=== PATIENT | male | born 1965 | race Caucasian/White ===

== ENCOUNTER → 2019-11-08 13:37 | Outpatient (BNVA) | payer MEDICARE, MEDICAID, SELFPAY | PROVIDERS: Family Provider Internal Medicine; PCP Internal Medicine; Visit Provider Nurse Practitioner | DX: M54.5 Low back pain (principal); M25.561 Pain in right knee; M25.562 Pain in left knee; F17.210 Nicotine dependence, cigarettes, uncomplicated; Z79.891 Long term (current) use of opiate analgesic | CPT/HCPCS: 99214 ==

== ENCOUNTER 2019-11-21 09:40 | Outpatient (CLI) | payer MEDICARE, MEDICAID, SELFPAY ==
--- NOTE | 2019-11-21 14:42 | PFTS_ITS ---
Date of Study:11/21/19 Date of Dictation: MECHANICS: Forced vital capacity (FVC) is normal. Forced expiratory volume in one second (FEV1) is normal. FEV1/FVC is normal. FLOW VOLUME LOOP: Normal. LUNG VOLUMES: Normal total lung capacity. Residual volume is diminished. DIFFUSING CAPACITY FOR CARBON MONOXIDE: Mildly reduced. INTERPRETATION: The pulmonary function tests are normal. Mildly reduced DLCO with a history of significant smoking could point to a diagnosis of emphysema. MTDD
== END 2019-11-21 09:41 | disposition home or self-care (01) ==
LOC: RT 09:45
PROVIDERS: Family Provider Internal Medicine; PCP Internal Medicine; Visit Provider Internal Medicine Critical Care Medicine
DX: J44.9 Chronic obstructive pulmonary disease, unspecified (principal); F17.210 Nicotine dependence, cigarettes, uncomplicated
CPT/HCPCS: 94060; 94726; 94729

== ENCOUNTER 2019-12-02 09:38 | Outpatient (CLI) | payer MEDICARE, MEDICAID, SELFPAY ==
--- NOTE | 2019-12-02 10:15 | USCV_ITS ---
JazmineYusuf edwards Age: 54 Gender: M : 1965 Exam Date: 12/02/2019 10:01 Ordering Phys: Melissa Wilkerson MD Technologist: Ebony Brown Exam Location: [facility] – [place] Indication: SOB BP: 171 / 64 HR: 69 Rhythm: Sinus Technical Quality: Adequate MEASUREMENTS (Male / Female) Normal Values 2D ECHO LV Diastolic Diameter PLAX 5.2 cm 4.2 - 5.9 / 3.9 - 5.3 cm LV Systolic Diameter PLAX 3.8 cm IVS Diastolic Thickness 1.3 cm 0.6 - 1.0 / 0.6 - 0.9 cm IVS Systolic Thickness 1.5 cm LVPW Diastolic Thickness 1.1 cm 0.6 - 1.0 / 0.6 - 0.9 cm LVPW Systolic Thickness 1.4 cm LVOT Diameter 2.0 cm LV Ejection Fraction 2D Teich 50.5 % LV Ejection Fraction MOD 2C 65.4 % LV Ejection Fraction 2C AL 65.6 % LA Diameter 3.8 cm LA Width 3.0 cm LA Height 6.0 cm RA Width 3.6 cm RA Height 4.2 cm Aorta at Sinotubular Diameter 3.0 cm M-MODE LV Diastolic Diameter MM 5.2 cm 4.2 - 5.9 / 3.9 - 5.3 cm LV Systolic Diameter MM 3.7 cm LV Ejection Fraction MM Teich 56.4 % IVS Diastolic Thickness MM 1.2 cm 0.6 - 1.0 / 0.6 - 0.9 cm IVS Systolic Thickness MM 1.7 cm LVPW Diastolic Thickness MM 1.1 cm 0.6 - 1.0 / 0.6 - 0.9 cm LVPW Systolic Thickness MM 1.4 cm Aortic Annulus Diameter 3.0 cm LA Ao Ratio MM 1.3 MV E Point Septal Separation 1.1 cm DOPPLER AV Peak Velocity 275.0 cm/s LVOT Peak Velocity 84.0 cm/s AV Area Cont Eq vti 1.0 cm squared AV Area Cont Eq pk 1.0 cm squared MV Area PHT 3.1 cm squared Mitral E to A Ratio 1.1 MV E' Velocity 12.0 cm/s Mitral E to MV E' Ratio 7.1 Mitral E to LV E' Lateral Ratio 6.5 Mitral E to LV E' Septal Ratio 7.8 TV Peak E Velocity 66.0 cm/s Right Atrial Pressure 3.0 mmHg PV Peak Velocity 98.0 cm/s RV Acceleration Time 0.1 s RV Ejection Time 0.3 s RV AcT/ET 0.3 FINDINGS Left Ventricle Normal left ventricular size and systolic function, EF 62 %. No regional wall motion abnormalities. Mild left ventricular hypertrophy. Right Ventricle The right ventricle is normal in size and function. Right Atrium The right atrium is normal in size. Left Atrium The left atrium is normal in size. Mitral Valve Trace mitral valve regurgitation. Aortic Valve Thickened aortic valve. Mild aortic valve regurgitation. Moderate aortic valve stenosis, mean gradient 16 mmHg, DEMOND 1 cm squared. Peak velocity of 2.75 m/s with a peak gradient of 30 and a mean gradient of 16 mmHg Tricuspid Valve Trace tricuspid valve regurgitation. Pulmonic Valve No gross abnormalities noted Pericardium Normal pericardium without effusion. Aorta Normal ascending aorta dimension. CONCLUSIONS Normal left ventricular size and systolic function, EF 62 %. No regional wall motion abnormalities. Mild left ventricular hypertrophy. Mild aortic valve regurgitation. Moderate aortic valve stenosis, mean gradient 16 mmHg, DEMOND 1 cm squared. Peak velocity of 2.75 m/s with a peak gradient of 30 and a mean gradient of 16 mmHg. Trace mitral and tricuspid valve regurgitation. Compared to the previous study from 01/15/2018, there is worsening of the aortic valve stenosis. Dr Michelle Rodriguez MD FACC (Electronically Signed) Final Date: 02 December 2019 13:27 S
== END 2019-12-02 09:39 | disposition home or self-care (01) ==
LOC: RAD 09:42
PROVIDERS: Family Provider Internal Medicine; PCP Internal Medicine; Visit Provider Internal Medicine Critical Care Medicine
DX: I08.3 Combined rheumatic disorders of mitral, aortic and tricuspid valves (principal); I50.9 Heart failure, unspecified; R06.02 Shortness of breath
CPT/HCPCS: 93306

== ENCOUNTER → 2020-02-29 13:12 | Outpatient (BNVA) | payer MEDICARE, MEDICAID, SELFPAY | PROVIDERS: Family Provider Internal Medicine; PCP Internal Medicine; Visit Provider Anesthesiology | DX: G89.29 Other chronic pain (principal); M54.41 Lumbago with sciatica, right side; M54.42 Lumbago with sciatica, left side; M19.90 Unspecified osteoarthritis, unspecified site; F17.210 Nicotine dependence, cigarettes, uncomplicated; Z79.891 Long term (current) use of opiate analgesic; Z71.6 Tobacco abuse counseling | CPT/HCPCS: 99214 ==

== ENCOUNTER → 2020-05-01 12:52 | Outpatient (BNVA) | payer MEDICARE, MEDICAID, SELFPAY | PROVIDERS: Family Provider Internal Medicine; PCP Internal Medicine; Visit Provider Anesthesiology | DX: G89.29 Other chronic pain (principal); M54.5 Low back pain; M25.561 Pain in right knee; M25.562 Pain in left knee; F17.210 Nicotine dependence, cigarettes, uncomplicated; Z79.891 Long term (current) use of opiate analgesic | CPT/HCPCS: 99214 ==

== ENCOUNTER → 2020-07-03 11:05 | Outpatient (BNVA) | payer MEDICARE, MEDICAID, SELFPAY | PROVIDERS: Family Provider Internal Medicine; PCP Internal Medicine; Visit Provider Anesthesiology | DX: G89.29 Other chronic pain (principal); M54.5 Low back pain; F17.210 Nicotine dependence, cigarettes, uncomplicated; Z79.891 Long term (current) use of opiate analgesic | CPT/HCPCS: 99213; 99214 ==

== ENCOUNTER → 2020-08-29 10:34 | Outpatient (BNVA) | payer MEDICARE, MEDICAID, SELFPAY | PROVIDERS: Family Provider Internal Medicine; PCP Internal Medicine; Visit Provider Anesthesiology | DX: G89.29 Other chronic pain (principal); M54.5 Low back pain; M25.561 Pain in right knee; M25.562 Pain in left knee; F17.210 Nicotine dependence, cigarettes, uncomplicated; Z79.891 Long term (current) use of opiate analgesic; Z79.1 Long term (current) use of non-steroidal anti-inflammatories (NSAID) | CPT/HCPCS: 99213; 99214 ==

== ENCOUNTER 2020-10-01 14:01 | Observation (INO) | payer MEDICARE, MEDICAID, SELFPAY ==
[2020-10-01] VITALS (37 sets, daily range): BP systolic 95–195; BP diastolic 52–107; PULSE 84–119; RESP 13–42; TEMP 36.4–36.9; O2SAT 92–97; BMI 33.0
--- NOTE | 2020-10-01 12:16 | USCV_ITS ---
Yusuf Buck Age: 55 Gender: M : 1965 Exam Date: 10/01/2020 16:33 Ordering Phys: Nir Burnham MD ([email or web address]) Technologist: Tish Villarreal [place] [facility] [place]ication: NSTEMI BP: 137 / 79 HR: 87 Rhythm: Sinus Technical Quality: MEASUREMENTS (Male / Female) Normal Values 2D ECHO LV Diastolic Diameter PLAX 3.6 cm 4.2 - 5.9 / 3.9 - 5.3 cm LV Systolic Diameter PLAX 2.5 cm LV Chamber Size 4.3 cm IVS Diastolic Thickness 1.7 cm 0.6 - 1.0 / 0.6 - 0.9 cm IVS Systolic Thickness 1.8 cm LVPW Diastolic Thickness 1.4 cm 0.6 - 1.0 / 0.6 - 0.9 cm LVPW Systolic Thickness 1.4 cm RV Chamber Size 2.6 cm LVOT Diameter 2.0 cm LV Ejection Fraction 2D Teich 60.8 % LV Ejection Fraction MOD 2C 41.6 % LV Ejection Fraction 2C AL 39.2 % LA Diameter 3.5 cm LA Width 2.9 cm LA Height 4.5 cm RA Width 2.5 cm RA Height 3.4 cm Aorta at Sinotubular Diameter 3.4 cm M-MODE LV Diastolic Diameter MM 4.6 cm 4.2 - 5.9 / 3.9 - 5.3 cm LV Systolic Diameter MM 3.8 cm LV Ejection Fraction MM Teich 33.8 % IVS Diastolic Thickness MM 1.3 cm 0.6 - 1.0 / 0.6 - 0.9 cm IVS Systolic Thickness MM 1.7 cm LVPW Diastolic Thickness MM 1.4 cm 0.6 - 1.0 / 0.6 - 0.9 cm LVPW Systolic Thickness MM 2.1 cm Aortic Annulus Diameter 3.8 cm LA Ao Ratio MM 1.0 MV E Point Septal Separation 1.1 cm DOPPLER AV Peak Velocity 194.7 cm/s LVOT Peak Velocity 82.0 cm/s AV Area Cont Eq vti 1.6 cm squared AV Area Cont Eq pk 1.4 cm squared MV Area PHT 5.6 cm squared Mitral E to A Ratio 1.1 MV E' Velocity 40.5 cm/s Mitral E to MV E' Ratio 15.0 Mitral E to LV E' Lateral Ratio 13.4 Mitral E to LV E' Septal Ratio 17.4 TR Peak Velocity 148.5 cm/s TR Peak Gradient 8.8 mmHg TR Mean Velocity 103.8 cm/s TR Mean Gradient 4.6 mmHg TR Velocity Time Integral 25.5 cm TV Peak E Velocity 55.0 cm/s Right Atrial Pressure 3.0 mmHg Pulmonary Artery Systolic Pressu 11.8 mmHg PV Peak Velocity 91.0 cm/s RV Acceleration Time 0.2 s RV Ejection Time 0.3 s RV AcT/ET 0.5 FINDINGS Left Ventricle Normal left ventricular cavity size. Normal left ventricular systolic function. Moderately decreased left ventricular systolic function. Left ventricular ejection fraction is estimated at 40 %. There appeared to be mid to distal anterior and apical akinesis suggestive of ischemic heart disease mostly in LAD territory.Grade II/IV diastolic dysfunction, moderately elevated filling pressures. Left ventricle apex has echogenic area concerning for left ventricle thrombus further assessment with contrast advised. Right Ventricle The right ventricle is normal in size and function. Right Atrium The right atrium is normal in size. Left Atrium The left atrium is normal in size. Mitral Valve Moderately thickened mitral valve. No mitral valve stenosis. Trace mitral valve regurgitation. Aortic Valve Mild aortic valve calcification. No aortic valve stenosis. Trace aortic valve regurgitation. Tricuspid Valve Trace tricuspid valve regurgitation. Pulmonic Valve Structurally normal pulmonic valve without significant stenosis. There is no pulmonic regurgitation. Pericardium Normal pericardium without effusion. Aorta Normal ascending aorta dimension. CONCLUSIONS 1-Normal left ventricular cavity size. Normal left ventricular systolic function. Moderately decreased left ventricular systolic function. Left ventricular ejection fraction is estimated at 40 %. There appeared to be mid to distal anterior and apical akinesis suggestive of ischemic heart disease mostly in LAD territory.Grade II/IV diastolic dysfunction, moderately elevated filling pressures. Left ventricle apex has echogenic area concerning for left ventricle thrombus further assessment with contrast advised. 2-Moderately thickened mitral valve. No mitral valve stenosis. Trace mitral valve regurgitation. 3-Mild aortic valve calcification. No aortic valve stenosis. Trace aortic valve regurgitation. 4-Trace tricuspid valve regurgitation. 5-There is no pericardial effusion. 6-Pulmonary artery systolic pressure is within normal limits. 7-Right atrial pressure is around 5 mm of mercury. 8-There are no prior echocardiogram studies to compare. Nir Burnham MD (Electronically Signed) Final Date: 03 October 2020 17:40 S
--- NOTE | 2020-10-01 14:07 | XRR_ITS ---
PROCEDURE INFORMATION: Exam: XR Chest, 1 View Exam date and time: 10/01/2020 2:10 PM Age: 55 years old Clinical indication: Chest pain; Type not specified; Additional info: Chest pain, stemi TECHNIQUE: Imaging protocol: XR of the chest Views: 1 view. COMPARISON: [facility] Chest 2 views 12/02/2017 2:16 PM FINDINGS: Lungs: Unremarkable. No consolidation. Pleural space: Unremarkable. No pleural effusion. No pneumothorax. Heart/Mediastinum: Unremarkable. No cardiomegaly. Bones/joints: Moderate thoracic spondylosis. XR/XR chest 1V portable [id number] IMPRESSION: No acute findings.
[2020-10-01] MEDS: nitroglycerin 1 gm/inch oint Pkt 1 INCH TOPICAL (14:09)
[2020-10-01] MEDS: clopidogrel 300 mg Tablet 600 MG PO (14:09)
[2020-10-01] MEDS: aspirin 81 mg Chew Tablet 324 MG PO (14:09)
--- NOTE | 2020-10-01 14:09 | XACV_ITS ---
Ht: 175 cm Wt: 104 kg BSA: 2.29 m2 Gender: Male : 1965 Any Known Allergies: No known allergies Exam Priority: Routine Procedure(s): Procedure Description: Diagnostic procedure Procedure Description: PCI procedure Procedure Description: Drug Eluting Coronary Stent Procedure Description: PTCA Procedure Description: Miscellaneous Procedure Description: ACT Diagnostic Cath Status: Emergency Diagnostic Findings * LM has 0% stenosis. * Mid Left Anterior Descending Coronary Artery: Severe 80% stenosis, SYED: 3 flow. * CIRC AV to LPDA: Mild 40% stenosis, SYED: 3 flow. * Ramus: Severe 90% stenosis, SYED: 3 flow. * pRCA to mRCA: Severe 90% stenosis, SYED: 3 flow. * BloodVessel1: Severe 90% stenosis, SYED: 3 flow. * Coronary angiography shows left dominance. Interventional Findings * Mid Left Anterior Descending Coronary Artery: 80% stenosis treated with MDFederico Harris GEETA 2.5X30 MARIELLA and MDT DARREN EUPHORA RX [id number] BALLOON. 0% residual stenosis, SYED: 3 flow. Conclusions 1. There is severe coronary artery disease with four vessel disease. 2. Mid Left Anterior Descending Coronary Artery was treated with Drug Eluting Stent and Balloon. 3. 5 4. 5-year-old male presented with persistent chest pain and ST elevation in left anterior lead 5. s 6. taken to the [facility]. He was noted to have significant 80% mid LAD thought to be significant treated with drug-eluting stent. Patient was also noted to have significant disease at nondominant small RCA and ramus intermedius thought to be treated medically. 7. . Recommendations * 1-Return to inpatient for close monitoring and routine cath care 2-Risk factor modification for secondary prevention 3-Statin and aspirin 81 mg life--long, if tolerated 4-Patient was pre-loaded with 600 mg of Plavix, continue Plavix 75mg p.o. daily for at least one year. We will assess at the end of one year again to continue if further or not 5-Continue optimal medical management 6-Follow up with cardiology in four weeks and your primary care in 10 days. Interventional RX Recommendation: PCI w/o planned CABG Diagnostic RX Recommendation: PCI w/o planned CABG Pressures Phase:Rest AO : 145 / 79 ( 104 ) @ 8:48:00 AM 118 / 68 ( 88 ) @ 8:54:00 AM Clinical Evaluation EBL: 5mL-10mL Procedural Details Procedure Consent Obtained. Pre-Procedure Time Out. Identified patient by full name and date of as verbalized by the patient/guarantor. Does the consent match the physician's order: N/A Emergent. Accurate & Complete Informed Consent: N/A Emergent. Inpatient/Outpatient History & Physical on Chart: N/A Emergent. If H&P is completed, is and addenduem needed: N/A Emergent; If yes, is the addendum complete: N/A Emergent. Visualize and Verify Site with Patient/Guarantor: N/A. Relevant Radiology Images available: N/A. Pre-op teaching completed and patient verbalized understanding. The risks, benefits, and alternatives of sedation and/or procedure were discussed by physician. The patient agrees to continue. Bhavya Monroe RT(R) was relieved by Mike Velazquez RABBLER as monitoring person. [facility] Clinical Fraility Score: 3: Managing Well. [employer] Indications: ACS <= 24 hours. Chest Pain Symptom Assessment: Typical Angina Symptoms. Cardiovascular Instability: No. Procedure started. Correct patient, site and procedure confirmed by cath team. PERRLA. 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 Lungs clear x 5 lobes. IV Site on Arrival: 18 gauge in the left forearm. IV Fluids: 0.9% NaCl at KVO. 0 mL infused prior to labor/excavator. Pre Procedural Pulses: bilateral dorsalis pedis was Doppled. Pre Procedural Pulses: bilateral posterior tibial was Doppled. Pre Procedural Pulses: bilateral radial was 2+. Oxygen started at 2liters/min via nasal canula. IV Site on Arrival: 20 gauge in the right forearm. Physician arrived. bilateral groins was prepped with chloroprep then draped in the usual sterile fashion. Baseline sample Acquired. HR: 107 BPM. right radial was prepped with chloroprep then draped in the usual sterile fashion. Pt arrived with Nitro drip at 10 mcg/min. Physician scrubbed in. Immediate Pre-Procedure Time Out. Correct Patient: Yes; Correct Procedure: Yes; Correct Site: Yes; Correct Patient Position: Yes; Correct Supplies: Yes; Dried Flammable Prep: Yes; Blood Products Available: N/A;. Lidocaine 1% infiltrated to the right radial. Arterial access obtained. Sheath upsized to a 6 Fr. A 5 palestinian JR4 catheter in over wire. Critical Trop resulted to Dr Burnham. Kfhy=[id number]. Catheter out. Inventory is CRD 6 FR XB 3.5 GUIDE. 6 palestinian XB 3.5 guide catheter was inserted over the wire. Nitro drip stopped at this time. [place] guidewire was advanced through the guide catheter to lesion in the mid LAD. Inflation Number : 1 A MDT R GEETA 2.5X30 MARIELLA -Lot Number# [id number] exp date 03/03/2022 was prepped and advanced across the Mid LAD. The stent was deployed at 14 BRETT for 0:36 seconds. Results checked. Stent balloon out over wire. Inflation number : 2 A MDT DARREN EUPHORA RX [id number] BALLOON was prepped and advanced across the Mid LAD , then inflated to 12 BRETT for 0:24 seconds. Inflation number: 3 The MDT NC EUPHORA RX 2.46I23AD BALLOON was reinflated across the Mid LAD, to 14 BRETT for 0:23 seconds. Balloon out. ACT drawn. Results 226 seconds. Therapeutic limits - pre-heparin administration 90-150 seconds and monitoring heparin during a vascular procedure >250 seconds. Wire out. Guide catheter out. Physician scrubbed out. A TR Band was successful obtaining hemostatsis at the Right Radial artery insertion site. TR band placed. Hemostasis obtained. Post Procedure: Pulses reassessed and unchanged. PERRLA. 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 No VTE prophylaxis required. Medication's Wasted: Lidocaine 1% = 16 mL. Medication's Wasted: Heparin = 1000 units. Total IV fluids: 75 mL. Medication's Wasted: Other = versed 1 mg. Contrast type used: Omnipaque 300 mgI/mL, 500 mL bottle. PCI Indication: STEMI. Complications: none. Estimated blood loss: 5mL-10mL. Post-op diagnosis: multi vessell CAD, LAD stenosis. Procedure completed. Patient transferred by wheelchair to 1st floor. Vital chart was stopped. Access Site Site: Right Radial artery Sheath Size: 5 Fr Hemostasis Method: TR Band Hemostasis Success: Successful Procedure Medications Start: 2:38 PM Stop: 2:38 PM Medication: Fentanyl Amount: 50 mcg Route: I.V. Start: 2:38 PM Stop: 2:38 PM Medication: Versed Amount: 1 mg Route: I.V. Start: 2:41 PM Stop: 2:41 PM Medication: Versed Amount: 1 mg Route: I.V. Start: 2:44 PM Stop: 2:44 PM Medication: Fentanyl Amount: 50 mcg Route: I.V. Start: 2:47 PM Stop: 2:47 PM Medication: Versed Amount: 1 mg Route: I.V. Start: 2:52 PM Stop: 2:52 PM Medication: Versed Amount: 1 mg Route: I.V. Start: 2:57 PM Stop: 2:57 PM Medication: Lopressor (metoprolol) Amount: 5 mg Route: I.V. Start: 2:59 PM Stop: 2:59 PM Medication: Heparin Amount: 5000 units Route: I.V. Start: 3:05 PM Stop: 3:05 PM Medication: Aggrastat 12.5 mg/250 mL Amount: 52 ml Route: I.V. bolus Start: 3:07 PM Stop: 3:07 PM Medication: Aggrastat 12.5 mg/250 mL Amount: 18.7 ml/hr Route: I.V. drip Start: 3:07 PM Stop: 3:07 PM Medication: Versed Amount: 1 mg Route: I.V. I, the attending physician, have reviewed and verified all procedure medications. Yes, all medications given per verbal order History/Risk Factors Hypertension: Yes Dyslipidemia: Yes Peripheral Arterial Disease (PAD): No Myocardial Infarction (CA): No Obesity: Yes Renal Disease: No Tobacco Use: Current/Recent(w/in 1 year) Prior Interventions PCI: No CABG: No Valve Surgery: No Report Signatures Finalized by Nir Burnham MD on 10/08/2020 11:59 AM
--- NOTE | 2020-10-01 14:10 | ECG_ITS ---
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 Measurements Intervals Lorida Rate: 107 P: 48 CT: 164 QRS: -41 QRSD: 98 T: 105 QT: 263 QTc: 352 Interpretive Statements SINUS TACHYCARDIA POSSIBLE LEFT ATRIAL ENLARGEMENT [-0.1mV P WAVE IN V1/V2] LEFT AXIS DEVIATION [QRS AXIS < -30] ANTERIOR MYOCARDIAL INFARCTION , POSSIBLY ACUTE [40+ ms Q WAVE AND/OR ST/T ABNORMALITY IN V3/V4] ACUTE GA No previous ECG available for comparison Electronically Signed On 10-01-2020 18:55:48 RANCH MANAGER by Jose M Cuello M.D. [id number]
[2020-10-01] MEDS: nitroglycerin drip 50 MG/250 ML PREMIX IV (14:14)
[2020-10-01 14:18] LABS: Basophils # 0.1 10^3/uL (0.0-0.1); Basophils % 0.4 %; Eosinophils # 0.1 10^3/uL (0.0-0.8); Eosinophils % 0.5 %; Hematocrit 49.1 % (42.0-52.0); Hemoglobin 16.7 g/dL (11.7-16.6); Lymphocytes # 3.9 10^3/uL (0.8-4.8); Lymphocytes % 22.6 %; Mean Corpuscular Hemoglobin 30.1 pg (28.0-34.0); Mean Corpuscular Volume 88.5 fL (80-94); Mean Platelet Volume 11.3 fL (7.4-10.4); Monocytes # 1.1 10^3/uL (0.2-0.9); Monocytes % 6.1 %; Neutrophils # 11.96 10^3/uL (1.8-7.7); Nucleated Red Blood Cells % 0 %; Platelet Count 227 10^3/cmm (130-400); Red Blood Count 5.55 10^6/uL (4.1-5.3); Red Cell Distribution Width 11.6 % (12.1-15.1); White Blood Count 17.1 10^3/uL (4.0-10.0)
[2020-10-01] MEDS: heparin 5,000 unit/mL INJ 1 mL 4000 UNIT IVP (14:22)
--- NOTE | 2020-10-01 14:25 | W.ED.CHESTPA ---
HPI - Chest Pain General: Chief Complaint: Chest Pain Stated Complaint: STEMI Time Seen by Provider: 10/01/20 14:07 History of Present Illness: HPI narrative: 55-year-old male with complaint of chest discomfort. He went to see his doctor this morning and had an EKG done and was found to have ST elevation in the anterior leads. About 3 years ago he had a stress test in December 2017 and was advised to have an angiogram but put it off. He states his been having chest pain intermittently with increasing frequency and intensity over the last several weeks. Pain radiates into his shoulders and into his arms as well as the right side of his neck. He gets extremely diaphoretic and shortness of short of breath with it as well. Usually resolves on its own after anywhere from 50 to 30 minutes. Patient is diabetic smokes regularly. Has a history of hypertension hyperlipidemia and diabetes. MD complaint: chest pain Pertinent past history: coronary artery disease Onset (ago): week(s) Timing of current episode: episodic Prior episodes: Yes Onset: during rest and during exertion Pain location: substernal Pain radiation: right arm, left arm, left shoulder and right shoulder Quality: tightness and heaviness Relieving factors: nothing Exacerbating factors: exertion Associated symptoms: Reports dyspnea; Deny abdominal pain, diaphoresis, fever(s), leg edema, nausea, palpitations, sense of impending doom, syncope or vomiting Treatment prior to arrival: none Review of Systems Const: Denies: fever(s) or diaphoresis ENMT: Denies: throat pain, ear or mastoid pain, nasal discharge or nasal congestion Card: Reports: chest pain; Denies: palpitations or syncope Resp: Reports: dyspnea and productive cough (At his normal baseline per the patient) GI: Denies: abdominal pain, nausea or vomiting : Denies: flank pain, dysuria, urinary frequency or urinary urgency Skin/Breast: Denies: rash or pruritus PFSH ED PFSH: Medical History (Updated 10/01/20 @ 14:33 by Triston Batres DO) Abdominal pain of unknown etiology Abscess, dental Acute bilateral knee pain Acute left-sided low back pain Adhesive tendinitis Aortic valvar stenosis Arthritis Atypical chest pain Benign essential HTN Benign prostatic hyperplasia without lower urinary tract symptoms Calculus of kidney Chronic low back pain Chronic pain of both knees DDD (degenerative disc disease), lumbar Diabetes mellitus Encounter for long-term (current) use of NSAIDs Fracture of arm Fracture of wrist Gastro-esophageal reflux disease without esophagitis High blood pressure Hypercholesteremia Intervertebral disc disorders with radiculopathy, lumbar region Long-term current use of opiate analgesic Male erectile dysfunction, unspecified Migraine Mixed hyperlipidemia Nicotine dependence, unspecified, uncomplicated 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 Pain management contract signed Right testicular pain Tobacco use disorder Type 2 diabetes mellitus with diabetic neuropathy, unspecified Patient continues to have neuropathy symptoms Surgical History H/O hernia repair H/O knee surgery H/O umbilical hernia repair S/P tendon repair Family History Mother , Metastasis Cancer Hypertension Stomach ulcer Arthritis Father , Gunshot Hypertension Other Heart disease Social History Smoking and tobacco status: current every day smoker cigarettes Packs smoked per day: 1.5 Years cigarettes smoked: 35 Alcohol intake: former Year of sobriety/quit date alcohol: 2014 Substance/Drug Use: never Lives independently: Yes Household members: none Marital status: Legally Current occupational status: disabled History of recent travel: No Current gender identity: Male Physical Exam Const: COMMON NORMALS: no acute distress GENERAL APPEARANCE: cooperative and comfortable ORIENTATION/CONSCIOUSNESS: Yes awake, Yes oriented to person, Yes oriented to place and Yes oriented to time HENMT: COMMON NORMALS: normocephalic, atraumatic and hearing grossly normal bilaterally HEAD & SCALP: normocephalic and atraumatic Neck/C-Spine: COMMON NORMALS: no JVD Resp: COMMON NORMALS: normal respiratory effort, No retractions, No use of accessory muscles and clear to auscultation bilaterally AUSCULTATION: clear to auscultation bilaterally Cardio: COMMON NORMALS: no JVD, regular rate, regular rhythm and No murmurs present (Cardio) RATE: regular rate RHYTHM: regular rhythm GI: COMMON NORMALS: Soft to palpation and No hepatosplenomegaly present AUSCULTATION: Yes normoactive bowel sounds PALPATION: Yes Soft to palpation, No Tenderness to palpation present (GI), No Guarding due to palpation present (GI) and Yes No hepatosplenomegaly present Extremity: COMMON NORMALS: normal to inspection, capillary refill normal, no clubbing, cyanosis or edema, no calf tenderness and no pedal edema Neuro: SENSORIUM/ORIENTATION: Yes oriented to person, Yes oriented to place and Yes oriented to time Skin: COMMON NORMALS: no rashes or lesions noted GENERAL SKIN EXAM: no rashes or lesions noted Course Vital Signs: Vital signs: Vital Signs Temperature 97.6 F 10/01/20 14:06 Pulse Rate 119 H 10/01/20 14:06 Respiratory Rate 13 10/01/20 14:06 Blood Pressure 195/106 10/01/20 14:06 Pulse Oximetry 97 10/01/20 14:06 MDM - Chest Pain MDM Narrative: Medical decision making narrative: Patient has significant ST elevation in anterior leads V345 and 6. He is currently having chest pain this was sent to Dr. Mcfarland. Patient was given Plavix aspirin and 4000 of heparin. Patient will be taken directly to the [facility]. Lab Data: Labs: Lab Results 10/01/20 Range/Units 14:05 WBC 17.1 H (4.0-10.0) 10^3/ uL RBC 5.55 H (4.1-5.3) 10^6/u L Hgb 16.7 H (11.7-16.6) g/dL Hct 49.1 (42.0-52.0) % MCV 88.5 (80-94) fL MCH 30.1 (28.0-34.0) pg MCHC 34.0 (30.0-36.0) g/dL RDW 11.6 L (12.1-15.1) % Plt Count 227 (130-400) 10^3/c mm MPV 11.3 H (7.4-10.4) fL Neut % (Auto) 70.0 % Lymph % (Auto) 22.6 % [place] % (Auto) 6.1 % Eos % (Auto) 0.5 % Baso % (Auto) 0.4 % Neut # (Auto) 11.96 H (1.8-7.7) 10^3/u L Lymph # (Auto) 3.9 (0.8-4.8) 10^3/u L [place] # (Auto) 1.1 H (0.2-0.9) 10^3/u L Eos # (Auto) 0.1 (0.0-0.8) 10^3/u L Baso # (Auto) 0.1 (0.0-0.1) 10^3/u L Nucleated RBC % (a uto) 0 % Nucleated RBCs # 0.0 /100WBC Discharge Plan Discharge Patient Disposition: Admitted As Inpatient Clinical Impression: ST elevation myocardial infarction (STEMI), Benign essential HTN, Diabetes mellitus, Chronic bronchitis, Obstructive sleep apnea, Aortic valvar stenosis Condition: Stable Prescriptions: No Action montelukast 10 mg tablet 10 mg PO ONCE RF: 0 lisinopril-hydrochlorothiazide 20-12.5 mg tablet 1 tab PO DAILY RF: 0 tamsulosin 0.4 mg capsule 0.4 mg PO ONCE RF: 0 Lidocaine Viscous 2 % solution 1 applic MUCOUS MEM TID RF: 0 Farxiga 10 mg tablet 10 mg PO QAM RF: 0 spironolactone 50 mg tablet 50 mg PO QAM RF: 0 bupropion HCl 150 mg tablet extended release 24 hr 150 mg PO QAM RF: 0 Novolog Mix 70-30FlexPen U-100 100 unit/mL (70-30) insulin pen See Rx Instructions SUBCUT .COMPLEX RF: 0 insulin detemir U-100 100 unit/mL (3 mL) insulin pen 70 unit SUBCUT BID RF: 0 amlodipine 10 mg tablet 10 mg PO DAILY RF: 0 furosemide [Lasix] 20 mg tablet 20 mg PO QAM 60 Days Qty: 60 RF: 1 atorvastatin 80 mg tablet 80 mg PO DAILY RF: 0 omeprazole 20 mg capsule,delayed release(DR/EC) 20 mg PO DAILY RF: 0 fluticasone propionate 50 mcg/actuation spray,suspension 1 spray INTRANASAL DAILY RF: 0 cyclobenzaprine 10 mg tablet 10 mg PO BID RF: 0 isosorbide mononitrate 120 mg tablet extended release 24 hr 120 mg PO DAILY 30 Days Qty: 30 RF: 5 hydrocodone-acetaminophen 7.5-325 mg tablet 1 tab PO QID PRN (Reason: pain) 30 Days Qty: 120 RF: 0 hydrocodone-acetaminophen 7.5-325 mg tablet 1 tab PO Q6H PRN (Reason: pain) 30 Days Qty: 120 RF: 0 tramadol 50 mg tablet 100 mg PO Q6H PRN (Reason: pain) 30 Days Qty: 240 RF: 1 naproxen 500 mg tablet 500 mg PO BID 30 Days Qty: 60 RF: 1 duloxetine [Cymbalta] 30 mg capsule,delayed release(DR/EC) 30 mg PO BID Qty: 60 RF: 1 tiotropium-olodaterol [Stiolto Respimat] 2.5-2.5 mcg/actuation mist See Rx Instructions .ROUTE .COMPLEX Qty: 4 RF: 3 nitroglycerin 0.4 mg tablet, sublingual 0.4 mg sublingual Q5M PRN (Reason: chest pain) Qty: 50 RF: 2 hydralazine 100 mg tablet 100 mg PO TID Qty: 270 RF: 3 albuterol sulfate 90 mcg/actuation HFA aerosol inhaler See Rx Instructions .ROUTE .COMPLEX Qty: 18 RF: 3 carvedilol 25 mg tablet 25 mg PO BID Qty: 60 RF: 5 Referrals: Yusuf Rivera DO [Primary Care Provider] - Coding Level of Care Code 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
--- NOTE | 2020-10-01 14:30 | PC.NURSE ---
Dr. Burnham consulted with patient and patient transferring to lab head via stretcher at this time accompanied by lab head staff nurses x2.
--- NOTE | 2020-10-01 14:33 | PM.HP ---
Providers/Chief Complaint Primary Care Provider: Yusuf Rivera DO Chief Complaint: STEMI History of Present Illness Yusuf Buck is a 55 year old male past medical history significant for multiple medical problems including diabetes mellitus type 2 continous tobacco abuse questionable compliance arthritis back pains hypertension hyperlipidemia presented with chest pain going on for the last few days off and on basis today when pain became more consistent patient decided to come to ER. Anterolateral ST elevation noted with possibe underlying old anterior MS, since patient continues to have chest pain we decided to [facility] Patient has been explained all risk benefit and alternative for the procedure. He would like to proceed with it. In the past patient had abnormal stress test but he did not follow-up on it. Patient is loaded with 600 mg of Plavix aspirin and heparin. Review of Systems Const: Denies: fever(s) or diaphoresis ENMT: Denies: throat pain, ear or mastoid pain, nasal discharge or nasal congestion Card: Reports: chest pain; Denies: palpitations or syncope Resp: Reports: dyspnea and productive cough (At his normal baseline per the patient) GI: Denies: abdominal pain, nausea or vomiting : Denies: flank pain, dysuria, urinary frequency or urinary urgency Skin/Breast: Denies: rash or pruritus Medications/Allergies Home Medications Medication Instructions Recorded Confirmed Last Taken Type bupropion HCl 150 mg 24 hr tablet, 150 mg PO DAILY 09/26/19 10/02/20 10/01/20 History extended release dapagliflozin 10 mg tablet 10 mg PO DAILY 09/26/19 10/02/20 10/01/20 History insulin aspar prot-insulin aspart See Rx Instructions SUBCUT .COMPLEX 09/26/19 10/02/20 10/01/20 History 100 unit/mL (70-30) subcutaneous pen lisinopril 20 2 tab PO DAILY tab 09/26/19 10/02/20 10/01/20 History mg-hydrochlorothiazide 12.5 mg tablet montelukast 10 mg tablet 10 mg PO DAILY 09/26/19 10/02/20 10/01/20 History spironolactone 50 mg tablet 50 mg PO DAILY 09/26/19 10/02/20 10/01/20 History tamsulosin 0.4 mg capsule 0.4 mg PO DAILY 09/26/19 10/02/20 10/01/20 History furosemide 20 mg tablet 20 mg PO QAM 60 Days #60 tab 10/20/19 10/02/20 Unknown Rx tiotropium 2.5 mcg-olodaterol 2.5 See Rx Instructions .ROUTE 04/02/20 10/02/20 Unknown Rx mcg/actuation mist for inhalation .COMPLEX #4 gm atorvastatin 80 mg tablet 80 mg PO DAILY tab 04/09/20 10/02/20 Unknown History cyclobenzaprine 10 mg tablet 10 mg PO BID tab 04/09/20 10/02/20 10/01/20 History fluticasone propionate 50 1 spray INTRANASAL DAILY gm 04/09/20 10/02/20 Unknown History mcg/actuation nasal spray,suspension nitroglycerin 0.4 mg sublingual 0.4 mg SUBLINGUAL Q5M PRN #50 each 06/08/20 10/02/20 Unknown Rx tablet albuterol sulfate 90 mcg/actuation See Rx Instructions .ROUTE 08/09/20 10/02/20 Unknown Rx aerosol inhaler .COMPLEX #18 g duloxetine 30 mg capsule,delayed 30 mg PO BID #60 cap 08/29/20 10/02/20 10/01/20 Rx release hydrocodone 7.5 mg-acetaminophen 1 tab PO QID PRN 30 Days #120 tab 08/29/20 10/02/20 Unknown Rx 325 mg tablet tramadol 50 mg tablet 100 mg PO Q6H PRN 30 Days #240 tab 08/29/20 10/02/20 Unknown Rx Crestor 40 mg PO DAILY 10/02/20 10/02/20 10/01/20 History Tresiba U-100 Insulin See Rx Instructions .ROUTE .COMPLEX 10/02/20 10/02/20 10/01/20 History aspirin 81 mg PO DAILY #90 tab 10/02/20 Unknown Rx carvedilol 12.5 mg PO BID #60 tab 10/02/20 08/29/20 Unknown Rx clopidogrel 75 mg PO DAILY #90 tab 10/02/20 Unknown Rx hydralazine 25 mg PO TID #270 tab 10/02/20 08/29/20 Unknown Rx isosorbide mononitrate 60 mg PO DAILY 10/02/20 10/02/20 10/01/20 History naproxen 250 mg PO BID 10/02/20 10/02/20 10/01/20 History nitroglycerin 0.4 mg SUBLINGUAL Q5M PRN #30 tab 10/02/20 Unknown Rx Allergies Allergy/AdvReac Type Severity Reaction Status Date / Time No Known Allergies Allergy Verified 08/29/20 10:58 PFSH Acute PFSH: Medical History (Updated 10/01/20 @ 14:37 by Nir Burnham MD) Abdominal pain of unknown etiology Abscess, dental Acute bilateral knee pain Acute left-sided low back pain Adhesive tendinitis Aortic valvar stenosis Arthritis Atypical chest pain Benign essential HTN Benign prostatic hyperplasia without lower urinary tract symptoms Calculus of kidney Chronic low back pain Chronic pain of both knees DDD (degenerative disc disease), lumbar Diabetes mellitus Encounter for long-term (current) use of NSAIDs Fracture of arm Fracture of wrist Gastro-esophageal reflux disease without esophagitis High blood pressure Hypercholesteremia Intervertebral disc disorders with radiculopathy, lumbar region Long-term current use of opiate analgesic Male erectile dysfunction, unspecified Migraine Mixed hyperlipidemia Nicotine dependence, unspecified, uncomplicated Other halfway (current) drug therapy Pain management contract signed Right testicular pain Tobacco use disorder Type 2 diabetes mellitus with diabetic neuropathy, unspecified Patient continues to have neuropathy symptoms Surgical History H/O hernia repair H/O knee surgery H/O umbilical hernia repair S/P tendon repair Family History Mother , Metastasis Cancer Hypertension Stomach ulcer Arthritis Father , Gunshot Hypertension Other Heart disease Social History Smoking and tobacco status: current every day smoker cigarettes Packs smoked per day: 1.5 Years cigarettes smoked: 35 Alcohol intake: former Year of sobriety/quit date alcohol: 2014 Lives independently: Yes Household members: none Marital status: Legally Current occupational status: disabled History of recent travel: No Current gender identity: Male Vitals/I&O/Wt Last Vital Signs Temp 97.6 F 10/01/20 14:06 Pulse 119 H 10/01/20 14:06 Resp 13 10/01/20 14:06 BP 195/106 10/01/20 14:06 Pulse Ox 97 10/01/20 14:06 09/30/20 10/01/20 10/01/20 22:59 06:59 14:59 Intake Total 0.275 / 0.275 Balance 0.275 / 0.275 Weight last 48 hrs Weight 230 lb Physical Exam Narrative: EXAM NARRATIVE: GENERAL: Patient is alert, awake and oriented x3. Mildly distressed NECK: No jugular vein distension. HEENT: No cyanosis. No icterus. No pallor. HEART: Regular S1 and S2. No murmur, rub or gallop. LUNGS: Clear to auscultate bilaterally. ABDOMEN: Soft, nontender and nondistended. Positive bowel sounds. No guarding, rebound or tenderness. CENTRAL NERVOUS SYSTEM: Grossly nonfocal. EXTREMITIES: Lower extremities without edema bilaterally. Pulses not palpable in the lower extremities Data : 10/02/20 03:00 10/02/20 03:00 A&P Assessment and plan (1) ST elevation myocardial infarction (STEMI): Patient will be [facility] for left heart cath and PCI if indicated. 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
[2020-10-01 14:39] LABS: Alanine Aminotransferase 26 U/L (0-41); Albumin Level 4.5 g/dL (3.5-5.2); Alkaline Phosphatase 124 IU/L (40-130); Anion Gap 21.4 (5-19); Aspartate Amino Transferase 75 U/L (0-40); Blood Urea Nitrogen 12 mg/dL (6-20); Calcium 9.8 mg/dL (8.5-10.5); Carbon Dioxide 20 mmol/L (22-29); Chloride 94 mmol/L (98-107); Globulin 2.7 g/dL (1.3-4.6); Glomerular Filtration Rate 88.3 mL/min (90-130); Glucose 340 mg/dL (65-115); Osmolality Calculated 285 mOsm/kg (285-295); Potassium 4.4 mmol/L (3.5-5.1); Sodium 131 mmol/L (136-145); Total Bilirubin 0.5 mg/dL (0.15-1.2); Total Protein 7.2 g/dL (6.6-8.7)
[2020-10-01 14:48] LABS: Troponin(5th) Baseline 1855 ng/L (0-15)
--- NOTE | 2020-10-01 15:33 | PC.NURSE ---
Patient to CSU from prosthetic lab technician at 1533. 2 nurse verification of insertion site. TR band intact with 15 ml of air. Patient A&Ox 4, VSS. Patient oriented to room and call light. Nurse to continue to monitor.
--- NOTE | 2020-10-01 16:10 | ECG_ITS ---
[facility] Test Date: 2020-10-01 Pat Name: Yusuf Buck Department: Room: 111 Gender: Male Dean Of Faculty: : 1965 Requested By: Triston Woo Order Number: [id number] Sagar MD: Jose M Cuello M.D. Measurements Intervals Andreas Rate: 87 P: 31 AL: 195 QRS: -32 QRSD: 108 T: 124 QT: 361 QTc: 434 Interpretive Statements SINUS RHYTHM MARKED LEFT AXIS DEVIATION [QRS AXIS < -30] ANTEROSEPTAL MYOCARDIAL INFARCTION [40+ ms Q WAVE IN V1-V4], PROBABLY RECENT ACUTE [place] Compared to ECG 10/01/2020 14:03:38 Sinus tachycardia no longer present Myocardial infarct finding still present Electronically Signed On 10-01-2020 19:02:06 SEWER AND DRAIN TECHNICIAN by Jose M Cuello M.D. [id number]
--- NOTE | 2020-10-01 16:15 | PC.NURSE ---
Critical lab 2 hour trop reported to Dr. Burnham. Verbal order to dc order for 6 hour troponin. RBVO.
[2020-10-01 16:35] LABS: Glucose Point of Care 283 mg/dL (70-110)
[2020-10-01 17:39] LABS: Troponin 5 2HR 3138 ng/L (0-15); Troponin 5 2HR Delta 1283 ABS# (0-10)
--- NOTE | 2020-10-01 18:45 | PC.NURSE ---
Patient reports headache. Dr. Burnham notified. Verbal order to remove nitro paste on chest, RBVO.
[2020-10-01] MEDS: acetaminophen 325 mg Tablet 650 MG PO (19:08)
--- NOTE | 2020-10-01 19:25 | PC.NURSE ---
TR band removed from right wrist after air was removed per order/protocol. VSS. Dressing placed. Site WNL. Patient tolerated well. Patient educated on post-cath activity restrictions and care and verbalized understanding.
--- NOTE | 2020-10-01 20:10 | ECG_ITS ---
[facility] Test Date: 2020-10-02 Pat Name: Yusuf Buck Department: Room: 111 Gender: Male Data Control Clerk: allen BRISCOEB: 1965 Requested By: Triston Woo Order Number: [id number] Reading MD: GEOFFREY PERDUE Measurements Intervals [place] Rate: 87 P: 17 SD: 183 QRS: 81 QRSD: 101 T: -71 QT: 334 QTc: 402 Interpretive Statements SINUS RHYTHM ANTERIOR MYOCARDIAL INFARCTION [40+ ms Q WAVE AND/OR ST/T ABNORMALITY IN V3/V4], PROBABLY RECENT ACUTE [place] Compared to ECG 10/01/2020 16:57:26 Left-axis deviation no longer present Myocardial infarct finding still present Electronically Signed On 10-02-2020 20:01:20 METAL FURRER by GEOFFREY PERDUE [id number]
[2020-10-01 21:16] LABS: Glucose Point of Care 209 mg/dL (70-110)
[2020-10-01] MEDS: atorvastatin 40 mg Tablet 80 MG PO (21:25)
[2020-10-01] MEDS: nicotine 14 mg Patch 1 PATCH TRANSDERMA (21:49)
[2020-10-02] VITALS (11 sets, daily range): BP systolic 109–141; BP diastolic 57–86; PULSE 86–111; RESP 12–30; TEMP 36.4–36.7; O2SAT 93–98
[2020-10-02] MEDS: acetaminophen 325 mg Tablet 650 MG PO (01:18)
--- NOTE | 2020-10-02 01:19 | PC.NURSE ---
Patient's right wrist dressing/site still WNL. VSS.
[2020-10-02 04:06] LABS: Basophils # 0.1 10^3/uL (0.0-0.1); Basophils % 0.5 %; Eosinophils # 0.1 10^3/uL (0.0-0.8); Eosinophils % 0.8 %; Hematocrit 45.3 % (42.0-52.0); Hemoglobin 15.3 g/dL (11.7-16.6); Mean Corpuscular HGB Conc 33.8 g/dL (30.0-36.0); Mean Corpuscular Hemoglobin 29.8 pg (28.0-34.0); Mean Corpuscular Volume 88.1 fL (80-94); Mean Platelet Volume 11.9 fL (7.4-10.4); Monocytes % 7.4 %; Neutrophils # 8.79 10^3/uL (1.8-7.7); Neutrophils % 67.9 %; Nucleated Red Blood Cells % 0 %; Platelet Count 147 10^3/cmm (130-400); Red Blood Count 5.14 10^6/uL (4.1-5.3); Red Cell Distribution Width 11.6 % (12.1-15.1)
[2020-10-02 04:44] LABS: Anion Gap 17.2 (5-19); Blood Urea Nitrogen 13 mg/dL (6-20); Calcium 9.6 mg/dL (8.5-10.5); Carbon Dioxide 24 mmol/L (22-29); Chloride 96 mmol/L (98-107); Creatinine Clr Calc Pharmacy 129.1865; Glomerular Filtration Rate 101.1 mL/min (90-130); Glucose 178 mg/dL (65-115); Osmolality Calculated 281 mOsm/kg (285-295); Potassium 4.2 mmol/L (3.5-5.1); Sodium 133 mmol/L (136-145)
--- NOTE | 2020-10-02 06:28 | PC.NURSE ---
Patient right wrist dressing/site WNL. VSS.
[2020-10-02 06:45] LABS: Glucose Point of Care 220 mg/dL (70-110)
[2020-10-02] MEDS: aspirin 81 mg EC Tablet PO (08:47)
[2020-10-02] MEDS: clopidogrel 75 mg Tablet PO (08:47)
--- NOTE | 2020-10-02 09:15 | PC.CHAP ---
Pastoral Care Encounter/Spiritual Assessment Type of Contact [] Declined reinforcing steel worker visit [] Patient/Family/Request visit [] Outpatient visit [] Follow-up visit [] Physician referral [] Code/Alert [x] Routine visit [] Staff referral [] Actively dying [] Patient sleeping [] Family support [] [] Out of room [] Palliative care [] [] Receiving care in room [] Pre-surgical visit [] Trauma [] Long length of stay [] ICU visit [] Other: Relational/Emotional Strength [] Patient feels connected with others/family/visitors/staff [] Distress [] Loneliness/isolation [] Abandonment Spirituality of Patient [] Person of Pavithra [] Attends Church of their Pavithra [] Believes in Prayer [] Reads Bible or Temple materials [] There are Spiritual issues to be addressed Gravity Prospecting Operator Helper Interventions [x] Prayer [x] Active listening [x] Non-anxious presence [x] Spiritual/emotional support [] Crisis/trauma care [] Spiritual counseling [] Bereavement support [] Provided bereavement packet [] Provided Bible/devotional materials [] Provided toy/stuffed animal, coloring book to patient or family member [] Provided Communion [] Anointing/[place] [] Salvation [x] Completed spiritual assessment [] Other: Impact on Illness or Injury [] Angry [] Fearful [] Anxious [] Often cries [] Exhaustion [] Unable to work [] Unable to attend restoration [] Unable to walk/stand [] Unable to read [] Unable to drive [] Unable to eat/drink [] Unable to sleep [] Unable to be with family [] Patient intubated [] Other: Summary patient doing ok... Time spent with patient 5 min
--- NOTE | 2020-10-02 11:11 | P.DS_ITS ---
Discharge Providers Date of Admission: 10/01/20 15:53 Date of Discharge: October 02, 2020 Attending Provider at Admission: Nir Burnham MD Attending Provider at Discharge: Nir Burnham MD Primary Care Provider: Yusuf Rivera DO Diagnoses at Discharge Discharge Diagnosis (1) ST elevation myocardial infarction (STEMI): Status: Acute Qualifiers: Involved coronary artery: LAD coronary artery Qualified Code(s): I21.02 - ST elevation (STEMI) myocardial infarction involving left anterior descending coronary artery (2) Benign essential HTN: Status: Acute (3) Diabetes mellitus: Status: Chronic Qualifiers: Diabetes mellitus complication status: with other specified complication Diabetes mellitus intermediate insulin use: with intermediate use Diabetes mellitus type: type 2 Qualified Code(s): E11.69 - Type 2 diabetes mellitus with other specified complication; 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 He was immediately taken to the [facility] he was found to have chronically occluded nondominant RCA while mid LAD had eccentric 80 to 85% stenosis thought to be culprit treated with single drug-eluting stent since it was not a large-caliber vessel 2.5 x 30 mm stent was placed which was postdilated with 2.75 x 15 mm noncompliant balloon at high pressure was used for proper approximation. Patient tolerated procedure well and recovered .No overnight event was noted, patient is chest pain-free and would like to go home. He is stable vital lombardi. His blood pressure remained stable in fact on the lower side therefore I will reduce Coreg to 12.5 mg twice a day and hydralazine to 25 mg 3 times daily, rest of medicine will be continued except we will stop nonsteroidal anti-inflammatory medicine since patient is on aspirin and Plavix. Patient has been advised and discussed regarding quitting smoking. He is does not express any desire to quit. Echocardiogram was performed suggestive of severely depressed ejection fraction of 33% with mid to distal anterior and apical akinesis. Physical Exam Narrative: EXAM NARRATIVE: GENERAL: Patient is alert, awake and oriented x3. NECK: No jugular vein distension. HEENT: No cyanosis. No icterus. No pallor. HEART: Regular S1 and S2. No murmur, rub or gallop. LUNGS: Clear to auscultate bilaterally. ABDOMEN: Soft, nontender and nondistended. Positive bowel sounds. No guarding, rebound or tenderness. CENTRAL NERVOUS SYSTEM: Grossly nonfocal. EXTREMITIES: Lower extremities without edema bilaterally. 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 Stat Exams 10/01/20 14:09 Taken CV echo complete* [id number] Routine Ultrasound 10/01/20 12:16 Taken Labs from last 24 hours 10/02/20 10/02/20 10/02/20 06:37 03:00 03:00 WBC 13.0 H RBC 5.14 Hgb 15.3 Hct 45.3 MCV 88.1 MCH 29.8 MCHC 33.8 RDW 11.6 L Plt Count 147 MPV 11.9 H Neut % (Auto) 67.9 Lymph % (Auto) 23.0 Canadian % (Auto) 7.4 Eos % (Auto) 0.8 Baso % (Auto) 0.5 Neut # (Auto) 8.79 H Lymph # (Auto) 3.0 Canadian # (Auto) 1.0 H Eos # (Auto) 0.1 Baso # (Auto) 0.1 Nucleated RBC % (a uto) 0 Nucleated RBCs # 0.0 Sodium 133 L Potassium 4.2 Chloride 96 L Carbon Dioxide 24 Anion Gap 17.2 BUN 13 Creatinine 0.8 GFR Calculation 101.1 Glucose 178 H POC Glucose 220 H Calculated Osmolal ity 281 L Calcium 9.6 Total Bilirubin AST ALT Alkaline Phosphata se Troponin T Baselin e Troponin T 120 Min [place] Troponin T Total Protein Albumin Globulin 10/01/20 10/01/20 10/01/20 21:10 16:27 16:10 WBC RBC Hgb Hct MCV MCH MCHC RDW Plt Count MPV Neut % (Auto) Lymph % (Auto) Canadian % (Auto) Eos % (Auto) Baso % (Auto) Neut # (Auto) Lymph # (Auto) Canadian # (Auto) Eos # (Auto) Baso # (Auto) Nucleated RBC % (a uto) Nucleated RBCs # Sodium Potassium Chloride Carbon Dioxide Anion Gap BUN Creatinine GFR Calculation Glucose POC Glucose 209 H 283 H Calculated Osmolal ity Calcium Total Bilirubin AST ALT Alkaline Phosphata se Troponin T Baselin e Troponin T 120 Min [place] 3138 H Delta Troponin T 1283 H* Total Protein Albumin Globulin 10/01/20 10/01/20 10/01/20 14:05 14:05 14:05 WBC 17.1 H RBC 5.55 H Hgb 16.7 H Hct 49.1 MCV 88.5 MCH 30.1 MCHC 34.0 RDW 11.6 L Plt Count 227 MPV 11.3 H Neut % (Auto) 70.0 Lymph % (Auto) 22.6 Canadian % (Auto) 6.1 Eos % (Auto) 0.5 Baso % (Auto) 0.4 Neut # (Auto) 11.96 H Lymph # (Auto) 3.9 Canadian # (Auto) 1.1 H Eos # (Auto) 0.1 Baso # (Auto) 0.1 Nucleated RBC % (a uto) 0 Nucleated RBCs # 0.0 Sodium 131 L Potassium 4.4 Chloride 94 L Carbon Dioxide 20 L Anion Gap 21.4 H BUN 12 Creatinine 0.9 GFR Calculation 88.3 L Glucose 340 H POC Glucose Calculated Osmolal ity 285 Calcium 9.8 Total Bilirubin 0.5 AST 75 H ALT 26 Alkaline Phosphata se 124 Troponin T Baselin e 1855 H* Troponin T 120 Min [place] Delta Troponin T Total Protein 7.2 Albumin 4.5 Globulin 2.7 Vitals: Last Vital Signs Temp 98.0 F 10/02/20 07:59 Pulse 105 H 10/02/20 07:59 Resp 15 10/02/20 07:59 BP 128/80 10/02/20 07:59 Pulse Ox 98 10/02/20 07:59 Discharge Plan Discharge Patient Disposition: Home Condition: Stable Prescriptions: New clopidogrel 75 mg Tablet 75 mg PO DAILY Qty: 90 RF: 4 aspirin 81 mg Tablet,Delayed Release (Dr/Ec) 81 mg PO DAILY Qty: 90 RF: 3 nitroglycerin 0.4 mg Tablet, Sublingual 0.4 mg sublingual Q5M PRN (Reason: Chest Pain) Qty: 30 RF: 3 Continued montelukast 10 mg tablet 10 mg PO DAILY RF: 0 lisinopril-hydrochlorothiazide 20-12.5 mg tablet 2 tab PO DAILY RF: 0 tamsulosin 0.4 mg capsule 0.4 mg PO DAILY RF: 0 Farxiga 10 mg tablet 10 mg PO DAILY RF: 0 spironolactone 50 mg tablet 50 mg PO DAILY RF: 0 bupropion HCl 150 mg tablet extended release 24 hr 150 mg PO DAILY RF: 0 Novolog Mix 70-30FlexPen U-100 100 unit/mL (70-30) insulin pen See Rx Instructions SUBCUT .COMPLEX RF: 0 furosemide [Lasix] 20 mg tablet 20 mg PO QAM 60 Days Qty: 60 RF: 1 atorvastatin 80 mg tablet 80 mg PO DAILY RF: 0 fluticasone propionate 50 mcg/actuation spray,suspension 1 spray INTRANASAL DAILY RF: 0 cyclobenzaprine 10 mg tablet 10 mg PO BID RF: 0 hydrocodone-acetaminophen 7.5-325 mg tablet 1 tab PO QID PRN (Reason: pain) 30 Days Qty: 120 RF: 0 tramadol 50 mg tablet 100 mg PO Q6H PRN (Reason: pain) 30 Days Qty: 240 RF: 1 duloxetine [Cymbalta] 30 mg capsule,delayed release(DR/EC) 30 mg PO BID Qty: 60 RF: 1 tiotropium-olodaterol [Stiolto Respimat] 2.5-2.5 mcg/actuation mist See Rx Instructions .ROUTE .COMPLEX Qty: 4 RF: 3 nitroglycerin 0.4 mg tablet, sublingual 0.4 mg sublingual Q5M PRN (Reason: chest pain) Qty: 50 RF: 2 albuterol sulfate 90 mcg/actuation HFA aerosol inhaler See Rx Instructions .ROUTE .COMPLEX Qty: 18 RF: 3 isosorbide mononitrate 60 mg tablet extended release 24 hr 60 mg PO DAILY RF: 0 Crestor 40 mg Tablet 40 mg PO DAILY RF: 0 Tresiba U-100 Insulin 100 unit/mL solution See Rx Instructions .ROUTE .COMPLEX RF: 0 naproxen 500 mg tablet 250 mg PO BID RF: 0 Changed carvedilol 25 mg tablet 12.5 mg PO BID Qty: 60 RF: 5 hydralazine 100 mg tablet 25 mg PO TID Qty: 270 RF: 3 Discontinued amlodipine 10 mg tablet 10 mg PO DAILY RF: 0 omeprazole 20 mg capsule,delayed release(DR/EC) 20 mg PO DAILY RF: 0 Discharge Orders: Discharge Order (Routine); Ordered 10/02/20 Ordered By: Nir Burnham Referrals: Michelle Rodriguez MD [Physician] - (Please, follow-up with Dr. Rodriguez on November 01 at 1:15p.m. If you have any questions or need to reschedule. Please call ) Sandhya Lopez FNP [Nurse Practitioner] - (Please, follow-up with Sandhya Lopez on October 16 at 3:00p.m. If you have any questions or need to reschedule. Please call ) Yusuf Rivera, [Primary Care Provider] - (Please, follow-up with Dr. Rivera on October 08 at 10:15a.m. If you have any questions or need to reschedule. Please call ) Discharge Diet: Cardiac and Diabetic Discharge Activity: Increase activity as tolerated Patient Instructions: Nitroglycerin (By mouth), Clopidogrel (By mouth), Left Heart Catheterization (DC), Coronary Angioplasty (DC), Hypertension (DC), Post Angiogram Home Care Instructions Discharge Attestations Time Spent in Discharge Care*: greater than 30 min Specific Discharge Activities: educating patient Time Spent in Smoking Cessation: 3 to 10 minutes Quality Metrics Clinical Quality Measures During this hospital stay, did patient experience: AMI Clinical Trial Participant: No Contraindication to aspirin (AMI): Aspirin given Contraindication to statin: Statin prescribed Coding Level of Care Code Established Pt Acute Meat Lugger for Chg Fwd Patient Type Established History Detailed Exam Detailed Medical Decision Making Moderate Complexity Diagnoses ST elevation myocardial infarction (STEMI) I21.02 Involved coronary artery: LAD coronary artery Benign essential HTN I10 Diabetes mellitus E11.69; Z79.4 Diabetes mellitus complication status: with other specified complication 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
[2020-10-02 11:18] LABS: Glucose Point of Care 306 mg/dL (70-110)
--- NOTE | 2020-10-02 11:25 | USCV_ITS ---
Yusuf Buck Age: 55 Gender: M : 1965 Exam Date: 10/02/2020 13:10 Ordering Phys: Nir Burnham MD ([email or web address]) Technologist: Narayan Morfin Exam Location: [facility] [place] Indication: THROMBUS BP: 141 / 86 HR: 103 Rhythm: Sinus Technical Quality: Good MEASUREMENTS (Male / Female) Normal Values 2D ECHO LV Ejection Fraction MOD 2C 63.1 % LV Ejection Fraction 2C AL 63.5 % FINDINGS Left Ventricle Normal left ventricular cavity size. Moderately decreased left ventricular systolic function. There appeared to be mid to distal anterior septal and apical hypokinesis. Left ventricular ejection fraction is estimated at 40 %. Contrast study was performed to rule out apical thrombus. There was no apical thrombus noted in the left ventricle. Right Ventricle Right Atrium Left Atrium Mitral Valve Aortic Valve Tricuspid Valve Pulmonic Valve Pericardium Aorta CONCLUSIONS This is a limited study to rule out left ventricle apical thrombus.. Normal left ventricular cavity size. Moderately decreased left ventricular systolic function. There appeared to be mid to distal anterior septal and apical hypokinesis. Left ventricular ejection fraction is estimated at 40 %. Contrast study was performed to rule out apical thrombus. There was no apical thrombus noted in the left ventricle. Nir Burnham MD (Electronically Signed) Final Date: 03 October 2020 19:05 S
[2020-10-02] MEDS: perflutren protein-a microsphr 0.22 mg/mL SDV 3 mL IV (13:46)
--- NOTE | 2020-10-03 11:02 | PC.RESP ---
Smoking Cessation information sent to patient.
== END 2020-10-02 14:54 | disposition home or self-care (01) ==
LOC: ER 14:33 → CCL 14:35 → CSU 15:54
PROVIDERS: Admitting Provider Internal Medicine Cardiovascular Disease; Emergency Provider Family Medicine; PCP Internal Medicine; Visit Provider Internal Medicine Cardiovascular Disease
DX: I21.02 ST elevation (STEMI) myocardial infarction involving left anterior descending coronary artery (principal); I25.10 Atherosclerotic heart disease of native coronary artery without angina pectoris; I35.0 Nonrheumatic aortic (valve) stenosis; I10 Essential (primary) hypertension; E11.69 Type 2 diabetes mellitus with other specified complication; Z79.4 Long term (current) use of insulin; M19.90 Unspecified osteoarthritis, unspecified site; E78.2 Mixed hyperlipidemia; E11.42 Type 2 diabetes mellitus with diabetic polyneuropathy; F17.210 Nicotine dependence, cigarettes, uncomplicated
CPT/HCPCS: 12345; 36416; 71045; 80048; 80053; 82962; 84484; 85025; 85347; 93005; 93306; 93454; 96365; 96366; 96367; 96372; 96375; 96376; 99282; 99285; C1725; C1769; C1874; C1887; C1894; C8924; C9606; G0378; J1644; J1815; J2250; J3010; J3246; J3490; J7030; Q9956; Q9967

== ENCOUNTER → 2020-11-01 09:02 | Outpatient (BNVA) | payer MEDICARE, MEDICAID, SELFPAY | PROVIDERS: PCP Internal Medicine; Visit Provider Anesthesiology | DX: G89.29 Other chronic pain (principal); M54.5 Low back pain; M25.561 Pain in right knee; M25.562 Pain in left knee; F17.210 Nicotine dependence, cigarettes, uncomplicated; Z79.891 Long term (current) use of opiate analgesic; Z79.1 Long term (current) use of non-steroidal anti-inflammatories (NSAID) | CPT/HCPCS: 99214 ==

== ENCOUNTER → 2020-12-28 12:50 | Outpatient (BNVA) | payer MEDICARE, MEDICAID, SELFPAY | PROVIDERS: PCP Internal Medicine; Visit Provider Nurse Practitioner | DX: G89.29 Other chronic pain (principal); M54.5 Low back pain; R20.2 Paresthesia of skin; M79.661 Pain in right lower leg; F17.210 Nicotine dependence, cigarettes, uncomplicated; Z79.891 Long term (current) use of opiate analgesic; Z79.1 Long term (current) use of non-steroidal anti-inflammatories (NSAID); Z71.6 Tobacco abuse counseling | CPT/HCPCS: 99213; 99214 ==

== ENCOUNTER → 2021-02-26 13:45 | Outpatient (BNVA) | payer MEDICARE, MEDICAID, SELFPAY | PROVIDERS: PCP Internal Medicine; Visit Provider Nurse Practitioner | DX: G89.29 Other chronic pain (principal); M54.5 Low back pain; M25.561 Pain in right knee; M25.562 Pain in left knee; F17.210 Nicotine dependence, cigarettes, uncomplicated; Z71.6 Tobacco abuse counseling; Z79.1 Long term (current) use of non-steroidal anti-inflammatories (NSAID); Z79.891 Long term (current) use of opiate analgesic | CPT/HCPCS: 99214 ==

== ENCOUNTER → 2021-04-25 13:49 | Outpatient (BNVA) | payer MEDICARE, MEDICAID, SELFPAY | PROVIDERS: PCP Internal Medicine; Visit Provider Anesthesiology | DX: G89.29 Other chronic pain (principal); M54.5 Low back pain; M25.561 Pain in right knee; M25.562 Pain in left knee; F17.210 Nicotine dependence, cigarettes, uncomplicated; Z79.891 Long term (current) use of opiate analgesic | CPT/HCPCS: 99214 ==

== ENCOUNTER → 2021-06-28 13:09 | Outpatient (BNVA) | payer MEDICARE, MEDICAID, SELFPAY | PROVIDERS: PCP Internal Medicine; Visit Provider Nurse Practitioner | DX: G89.29 Other chronic pain (principal); M54.50 Low back pain, unspecified; M19.90 Unspecified osteoarthritis, unspecified site; F17.210 Nicotine dependence, cigarettes, uncomplicated; Z71.6 Tobacco abuse counseling; Z79.891 Long term (current) use of opiate analgesic | CPT/HCPCS: 99213; 99214 ==

== ENCOUNTER 2021-08-01 06:56 | Outpatient (CLI) | payer MEDICARE, MEDICAID, SELFPAY ==
--- NOTE | 2021-08-01 07:15 | USCV_ITS ---
Yusuf Buck Age: 56 Gender: M : 1965 Exam Date: 08/01/2021 07:15 Ordering Phys: Michelle Rodriguez MD ([email or web address]) Technologist: Exam Location: [facility] [place] Indication: CARDIOMYOPATHY BP: 134 / 82 HR: 78 Rhythm: Sinus Technical Quality: Adequate MEASUREMENTS (Male / Female) Normal Values 2D ECHO LV Diastolic Diameter PLAX 5.0 cm 4.2 - 5.9 / 3.9 - 5.3 cm LV Systolic Diameter PLAX 3.1 cm IVS Diastolic Thickness 1.3 cm 0.6 - 1.0 / 0.6 - 0.9 cm IVS Systolic Thickness 1.5 cm LVPW Diastolic Thickness 1.6 cm 0.6 - 1.0 / 0.6 - 0.9 cm LVPW Systolic Thickness 1.4 cm LVOT Diameter 2.0 cm LV Ejection Fraction 2D Teich 68.1 % LV Ejection Fraction MOD 2C 49.6 % LV Ejection Fraction 2C AL 51.7 % LA Diameter 3.3 cm LA Width 4.6 cm LA Height 5.5 cm RA Width 4.4 cm RA Height 4.5 cm FINDINGS Left Ventricle Normal LV size with diminished ejection fraction of 40 to 45% (visual). Diffuse hypokinesia of the LV apex. Right Ventricle The right ventricle is normal in size and function. Right Atrium The right atrium is normal in size. Left Atrium Mildly increased left atrial size. Mitral Valve No gross abnormalities noted Aortic Valve Thickened aortic valve. Tricuspid Valve No gross abnormalities noted Pulmonic Valve Structurally normal pulmonic valve without significant stenosis. There is no pulmonic regurgitation. Pericardium Normal pericardium without effusion. Aorta Normal ascending aorta dimension. CONCLUSIONS Normal LV size with diminished ejection fraction of 49%. Mildly increased left atrial size. Thickened aortic valve. Diffuse hypokinesia of the LV apex. There is no pericardial effusion. There are no intracardiac masses. Compared to the previous study from 10/02/2020 there may not be a significant change in the 2D findings Dr Michelle Rodriguez MD [facility] (Electronically Signed) Final Date: 02 August 2021 00:51 S
== END 2021-08-01 06:57 | disposition home or self-care (01) ==
PROVIDERS: PCP Internal Medicine; Visit Provider Internal Medicine Cardiovascular Disease
DX: I42.9 Cardiomyopathy, unspecified (principal); I25.5 Ischemic cardiomyopathy; I35.8 Other nonrheumatic aortic valve disorders
CPT/HCPCS: 93308

== ENCOUNTER → 2021-08-29 13:43 | Outpatient (BNVA) | payer MEDICARE, MEDICAID, SELFPAY | PROVIDERS: PCP Internal Medicine; Visit Provider Anesthesiology | DX: G89.29 Other chronic pain (principal); M54.50 Low back pain, unspecified; M25.561 Pain in right knee; M25.562 Pain in left knee; F17.200 Nicotine dependence, unspecified, uncomplicated; Z79.891 Long term (current) use of opiate analgesic; Z79.1 Long term (current) use of non-steroidal anti-inflammatories (NSAID) | CPT/HCPCS: 99214 ==

== ENCOUNTER → 2021-11-05 10:28 | Outpatient (BNVA) | payer MEDICARE, MEDICAID, SELFPAY | PROVIDERS: PCP Internal Medicine; Visit Provider Anesthesiology | DX: G89.29 Other chronic pain (principal); M54.2 Cervicalgia; M54.50 Low back pain, unspecified; F17.210 Nicotine dependence, cigarettes, uncomplicated; Z79.891 Long term (current) use of opiate analgesic | CPT/HCPCS: 99214 ==

== ENCOUNTER 2021-12-09 06:45 | Outpatient (CLI) | payer MEDICARE, MEDICAID, SELFPAY ==
--- NOTE | 2021-12-09 07:00 | USCV_ITS ---
Yusuf Buck Age: 56 Gender: M : 1965 Exam Date: 12/09/2021 07:00 Ordering Phys: Michelle Rodriguez MD ([email or web address]) Technologist: JOSE Exam Location: [facility] [place] Indication: Occlusion and stenosis of unspecified carotid artery Risk Factors: Previous Vascular Surgery: Right Brachial BP: / Left Brachial BP: / Right Left Velocity (cm/s) Spectral Plaque Velocity (cm/s) Spectral Plaque Syst/Diast Broadening Syst/Diast Broadening 48.00/ 13.80 Prox CCA 83.80 / 22.40 73.60/ 19.70 Mid CCA 73.80 / 24.10 64.10/ 15.75 Distal CCA 77.70 / 21.20 47.70/ 16.90 Prox ICA 90.70 / 27.60 60.80/ 17.80 Mid ICA 105.10/ 30.20 85.80/ 27.60 Distal ICA 85.20 / 27.40 91.80 ECA 83.90 1.17 ICA/CCA 1.42 Antegrade Vertebral Antegrade 22.80/ 5.90 cm/s 27.70/ 9.20 cm/s Bi Subclavian Bi 145.4 132.9 0 0 FINDINGS Mild to moderate plaques at the right bifurcation proximal internal carotid artery. Minimal plaques at the left bifurcation and proximal internal carotid artery. Antegrade flow in the vertebral arteries bilaterally. Normal Doppler flow velocities in the external carotid, subclavian and vertebral arteries CONCLUSIONS Mild to moderate plaques at the right bifurcation and proximal internal carotid artery, suggesting less than 50% stenosis. Minimal plaques at the left bifurcation and proximal ICA Dr Michelle Rodriguez MD [facility] (Electronically Signed) Final Date: 10 December 2021 19:52 S
== END 2021-12-09 06:46 | disposition home or self-care (01) ==
LOC: RAD 06:46
PROVIDERS: PCP Internal Medicine; Visit Provider Internal Medicine Cardiovascular Disease
DX: I65.23 Occlusion and stenosis of bilateral carotid arteries (principal)
CPT/HCPCS: 93880

== ENCOUNTER → 2021-12-19 12:50 | Outpatient (BNVA) | payer MEDICARE, MEDICAID, SELFPAY | PROVIDERS: PCP Internal Medicine; Visit Provider Internal Medicine Critical Care Medicine | DX: R04.2 Hemoptysis (principal); G47.33 Obstructive sleep apnea (adult) (pediatric); I35.0 Nonrheumatic aortic (valve) stenosis; F17.210 Nicotine dependence, cigarettes, uncomplicated; J42 Unspecified chronic bronchitis; I10 Essential (primary) hypertension; E78.5 Hyperlipidemia, unspecified; E11.40 Type 2 diabetes mellitus with diabetic neuropathy, unspecified | CPT/HCPCS: 99214 ==

== ENCOUNTER 2022-01-07 10:26 | Outpatient (CLI) | payer MEDICARE, MEDICAID, SELFPAY ==
--- NOTE | 2022-01-07 11:00 | CT_ITS ---
WS: [id number] CT CHEST WITH INTRAVENOUS CONTRAST HISTORY: Hemoptysis TECHNIQUE: Contiguous 5 mm axial imaging performed on the thorax. Coronal and sagittal reformats are submitted. All CT scans at [facility] use at least one of these dose optimization techniques: automated exposure control; mA and/or kV adjustment per patient size (includes targeted exams where dose is matched to clinical indication); or iterative reconstruction. CONTRAST: None DLP: 748.90 mGy.cm COMPARISON: None available. Lungs and central airway: Normally aerated lungs with paraseptal emphysema. Mild pulmonary hyperinfla tion. Mild diffuse interstitial thickening. 6 mm nodule associated with the mid RIGHT major fissure. There is an additional nodule measuring 5 mm associated with the distal LEFT major fissure. No endobr onchial lesion identified. Pleura: Normal. No pleural effusion. Heart and pericardium: Normal size heart. High density in the LEFT anterior descending coronary arter y is probably a stent. Mediastinum and neena: There are numerous small mediastinal and hilar lymph nodes. Hilar lymph nodes a re difficult to measure as they are partially obscured by the adjacent bronchovascular structures. Vessels: Minimal atherosclerosis aorta. Normal size pulmonary artery. Chest wall and lower neck: No soft tissue masses. Upper abdomen: Mild hepatomegaly and hepatic steatosis. Gallbladder is contracted. No adrenal mass. Osseous structures: Increase in thoracic kyphosis. Degenerative disc space narrowing and small verteb ral body osteophytes. CT/CT chest wo con [id number] IMPRESSION: 1. No pulmonary nodule or mass. No endobronchial lesions identified. 2. Small, subcentimeter nodules along the major fissures. These are typically benign intrapulmonary lymph nodes. 3. Hepatic steatosis and hepatomegaly.
== END 2022-01-07 10:27 | disposition home or self-care (01) ==
LOC: RAD 10:29
PROVIDERS: PCP Internal Medicine; Visit Provider Internal Medicine Critical Care Medicine
DX: R04.2 Hemoptysis (principal); K76.0 Fatty (change of) liver, not elsewhere classified; R16.0 Hepatomegaly, not elsewhere classified
CPT/HCPCS: 71250

== ENCOUNTER → 2022-04-15 14:59 | Outpatient (BNVA) | payer MEDICARE, MEDICAID, SELFPAY | PROVIDERS: PCP Internal Medicine; Visit Provider Internal Medicine Cardiovascular Disease | DX: I25.118 Atherosclerotic heart disease of native coronary artery with other forms of angina pectoris (principal); I65.22 Occlusion and stenosis of left carotid artery; E11.40 Type 2 diabetes mellitus with diabetic neuropathy, unspecified; I25.5 Ischemic cardiomyopathy; I10 Essential (primary) hypertension; G47.33 Obstructive sleep apnea (adult) (pediatric); F17.210 Nicotine dependence, cigarettes, uncomplicated; Z79.4 Long term (current) use of insulin | CPT/HCPCS: 99214 ==

== ENCOUNTER 2022-04-29 10:00 | Outpatient (CLI) | payer MEDICARE, MEDICAID, SELFPAY ==
--- NOTE | 2022-04-29 10:15 | USCV_ITS ---
Yusuf Buck Age: 57 Gender: M : 1965 Exam Date: 04/29/2022 10:25 Ordering Phys: Michelle Rodriguez MD ([email or web address]) Technologist: HEATHER Exam Location: [facility] [place] Indication: uncontrolled htn Aortic Velocity @ SMA (cm/s) 97 RIGHT KIDNEY LEFT KIDNEY Velocity (cm/s) Velocity (cm/s) Sys/Anderson Sys/Anderson Resistive Index Resistive Index 189.9 / 22.2 0.88 Proximal Renal Artery 160.1 / 30.9 0.81 187.7 / 38.4 0.80 Mid Renal Artery 105.0 / 18.8 0.82 168.8 / 31.3 0.81 Distal Renal Artery 133.2 / 26.9 0.80 84.9 / 20.4 0.76 Hilar 120.3 / 18.3 0.85 61.2 / 16.1 0.74 Upper Pole 35.2 / 9.5 0.73 67.7 / 20.4 0.70 Mid Pole 43.6 / 10.7 0.75 48.3 / 9.7 0.80 Lower Pole 32.2 / 10.1 0.69 1.96 Renal Aortic Ratio 1.65 Accleration Index (cm/sec2) 963.00 Hilar 2285.0 0 768.00 Upper Pole 328.00 1198.0 Mid Pole 1929.0 0 0 578.00 Lower Pole 1032.0 0 113.6 Kidney Length (mm) 132.7 FINDINGS Elevated renal artery Doppler velocity indicis bilaterally Near or near normal acceleration indicis bilaterally Normal renal aortic ratios Normal kidney dimensions bilaterally CONCLUSIONS 1. No significant renal arterial stenosis, based on the above findings 2. Elevated resistive indicis, suggesting medical renal disease 3. Normal kidney dimensions bilaterally Dr Michelle Rodriguez MD [facility] (Electronically Signed) Final Date: 30 April 2022 08:25 S
== END 2022-04-29 10:01 | disposition home or self-care (01) ==
LOC: RAD 10:01
PROVIDERS: PCP Internal Medicine; Visit Provider Internal Medicine Cardiovascular Disease
DX: I10 Essential (primary) hypertension (principal)
CPT/HCPCS: 93975

== ENCOUNTER → 2022-05-12 10:22 | Outpatient (BNVA) | payer MEDICARE, MEDICAID, SELFPAY | PROVIDERS: PCP Internal Medicine; Visit Provider Podiatrist Foot & Ankle Surgery | DX: E11.8 Type 2 diabetes mellitus with unspecified complications (principal); B35.1 Tinea unguium; G62.9 Polyneuropathy, unspecified; E11.40 Type 2 diabetes mellitus with diabetic neuropathy, unspecified; L85.3 Xerosis cutis; Z79.4 Long term (current) use of insulin | CPT/HCPCS: 11721; 99204 ==

== ENCOUNTER → 2022-06-23 10:45 | Outpatient (BNVA) | payer MEDICARE, MEDICAID, SELFPAY | PROVIDERS: PCP Internal Medicine; Visit Provider Internal Medicine Critical Care Medicine | DX: J42 Unspecified chronic bronchitis (principal); I35.0 Nonrheumatic aortic (valve) stenosis; G47.33 Obstructive sleep apnea (adult) (pediatric); R04.2 Hemoptysis; F17.210 Nicotine dependence, cigarettes, uncomplicated; I34.0 Nonrheumatic mitral (valve) insufficiency | CPT/HCPCS: 99214 ==

== ENCOUNTER 2022-07-17 14:40 | Outpatient (CLI) | payer MEDICARE, MEDICAID, SELFPAY ==
--- NOTE | 2022-07-17 14:52 | MR_ITS ---
WS: [id number] MRI LUMBAR SPINE NONCONTRAST HISTORY: Chronic low back pain. Radiculopathy. COMPARISON: 03/26/2015 TECHNIQUE: Sagittal and axial multisequence imaging is submitted. Normal lumbar alignment with no compression fractures or marrow edema. Disc spaces and vertebral body heights are well-preserved. Conus terminates normally at L1-2 disc level. L1-L2: Normal. L2-L3: Normal. L3-L4: Mild facet and ligamentum flavum hypertrophy. No stenosis. L4-L5: Very mild annular disc bulging and mild ligamentum flavum hypertrophy. No stenosis. L5-S1: Mild annular disc bulging slightly asymmetric into the neural foramina. Mild contact on the un dersurface of the RIGHT exiting L5 nerve root. Very minimal bilateral foraminal encroachment. Mild os teophytic ridging. Visualized retroperitoneum is negative. MR/MR lumbar spine wo con* [id number] IMPRESSION: 1. No significant central or foraminal stenosis. 2. Mild disc space narrowing and desiccation at L5-S1 with minimal disc encroa chment into the foramina. Minimal contact on the RIGHT exiting L5 nerve root. 3. Mild facet joint arthritis at L3-4 through L5-S1.
== END 2022-07-17 14:41 | disposition home or self-care (01) ==
LOC: RAD 14:40
PROVIDERS: PCP Internal Medicine; Visit Provider General Practice
DX: M47.27 Other spondylosis with radiculopathy, lumbosacral region (principal)
CPT/HCPCS: 72148

== ENCOUNTER → 2022-09-10 11:34 | Outpatient (BNVA) | payer MEDICARE, MEDICAID, SELFPAY | PROVIDERS: PCP Internal Medicine; Visit Provider Internal Medicine Cardiovascular Disease | DX: I11.0 Hypertensive heart disease with heart failure (principal); I50.9 Heart failure, unspecified; I25.10 Atherosclerotic heart disease of native coronary artery without angina pectoris; I65.22 Occlusion and stenosis of left carotid artery; E11.40 Type 2 diabetes mellitus with diabetic neuropathy, unspecified; I25.5 Ischemic cardiomyopathy; G47.33 Obstructive sleep apnea (adult) (pediatric); J42 Unspecified chronic bronchitis; E11.69 Type 2 diabetes mellitus with other specified complication; Z79.4 Long term (current) use of insulin; I25.2 Old myocardial infarction; E78.00 Pure hypercholesterolemia, unspecified; F17.210 Nicotine dependence, cigarettes, uncomplicated | CPT/HCPCS: 99215 ==

== ENCOUNTER 2022-09-16 07:42 | Outpatient (CLI) | payer MEDICARE, MEDICAID, SELFPAY ==
--- NOTE | 2022-09-16 | ECG_ITS ---
[facility] Test Date: 2022-09-16 Pat Name: Yusuf Buck Department: Room: Gender: Male [employer] Delivery Specialist: Rebecca Mcdermott : 1965 Requested By: Luciano Barragan Order Number: [id number] Sagar MD: Katie Rawls M.D. Interpretive Statements NAME OF STUDY: LEXISCAN SESTAMIBI STRESS TEST INDICATION: Chest Pain; Shortness of Breath PROCEDURE: At the baseline, the blood pressure was 173/96 mm Hg with a heart rate of 72 bpm. The electrocardiogram showed sinus rhythm, possible old anterior infarct. Low QRS voltage in precordial and limb leads. ??? The Lexiscan was infused over a period of 20 seconds. A total of 0.4 milligrams of Lexiscan was infused. The stress phase was continued for a total of 5 minutes. Heart rate at the end of the stress phase was 77 bpm with a blood pressure of 166/101 mm Hg. The EKG at the peak infusion revealed no significant ST-T wave changes. The study was terminated due to protocol completion. ??? Sestamibi was injected 20 seconds after the Lexiscan infusion. ??? Blood pressure at the end of the recovery phase was 174/99 mm Hg with a heart rate of 81 beats per minute. ??? CONCLUSION: 1. No significant EKG changes with the LexiScan infusion. 2. No LexiScan induced chest pain or cardiac arrhythmia. 3. Normal blood pressure and heart rate response. 4. Sestamibi/sestamibi perfusion scan pending; see separate report. Electronically Signed On 09-19-2022 17:54:21 NIGHT WORKER by Katie Rawls M.D. [id number]
--- NOTE | 2022-09-16 07:51 | NMCV_ITS ---
NM tay perf SPECT r/s* [id number] Yusuf Buck Age: 57 Gender: M : 1965 Exam Date: 09/16/2022 07:51 Ordering Phys: Luciano Barragan MD ([email or web address]) Technologist: MARCOS Massey Exam Location: [facility] Indications: ATHEROSCEROTIC HEART DISEASE OF [place] CORONARY ARTERY STRESS TEST Please see separate stress test report in [facility] for full findings IMAGE PROTOCOL Rest/Stress 1 Lexiscan Day Radiopharmaceutical Dose (mCi) Administration Site Administered by Rest: Tc-99m 10.9 IV MARCOS Weber Sestamibi Stress:Tc-99m 32.5 IV MARCOS Weber Sestamibi Rest: 16-Sep-2022 60 Discovery 630 Stress: 16-Sep-2022 30 Discovery 630 0.4mg Lexiscan. Supine position only as patient was unable to lay prone. SPECT RESULTS Technical Quality: Excellent Raw Data Analysis: Normal Image Corrections: No attenuation or motion correction applied Summed Stress Score: 33 Summed Rest Score: 29 Summed Difference Score: 4 PERFUSION FINDINGS Large sized perfusion abnormality of moderate to severe severity of basal to apical anterior, mid to apical septal, mid anterolateral, mid to apical inferior and apical low on rest images with minimal reversibility in basal to mid anterior low on stress images. FUNCTIONAL RESULTS (calculated via Gated SPECT) Stress Image LV EF (%): 24 Stress EDV (mL):246 TID: 1.05 Stress ESV (mL):188 FUNCTIONAL FINDINGS: The left ventricle is dilated. Transient Ischemia Dilatation of 1.1. The left ventricular ejection fraction is severely reduced with a value of 24%. There is severe global hypokinesis. Markedly increased end diastolic and end systolic volumes. IMPRESSIONS 1. Large sized perfusion abnormality of moderate to severe severity of basal to apical anterior, mid to apical septal, mid anterolateral, mid to apical inferior and apical low. 2. This represents old myocardial infarction in left anterior descending and right coronary artery with minimal ross-infarct ischemia. 3. The left ventricular ejection fraction is severely reduced with a value of 24%. There is severe global hypokinesis. 4. EKG portion of the study will be reported separately. 5. The perfusion pattern is consistent with an ischemic cardiomyopathy. Katie Rawls MD (Electronically Signed) Final Date: 19 September 2022 15:40 S
[2022-09-16] MEDS: regadenoson 0.4 Mg/5 ml Syringe IVP (10:00)
[2022-09-16 10:22] VITALS: BP 174/99; PULSE 73
== END 2022-09-16 07:43 | disposition home or self-care (01) ==
LOC: CDL 07:44
PROVIDERS: PCP Internal Medicine; Visit Provider Internal Medicine Cardiovascular Disease
DX: R07.9 Chest pain, unspecified (principal); I25.118 Atherosclerotic heart disease of native coronary artery with other forms of angina pectoris; R94.39 Abnormal result of other cardiovascular function study
CPT/HCPCS: 36415; 78452; 93017; 96374; A9500; J2785

== ENCOUNTER 2022-09-25 05:59 | Outpatient (CLI) | payer MEDICARE, MEDICAID, SELFPAY ==
--- NOTE | 2022-09-25 06:15 | USCV_ITS ---
Yusuf Buck Age: 57 Gender: M : 1965 Exam Date: 09/25/2022 06:06 Ordering Phys: Michelle Rodriguez MD ([email or web address]) Technologist: Narayan Morfin Exam Location: [facility] Indication: chf sob pedal edema BP: 140 / 80 HR: 73 Rhythm: Sinus Technical Quality: Adequate MEASUREMENTS (Male / Female) Normal Values 2D ECHO LV Diastolic Diameter PLAX 5.5 cm 4.2 - 5.9 / 3.9 - 5.3 cm LV Systolic Diameter PLAX 5.2 cm IVS Diastolic Thickness 0.9 cm 0.6 - 1.0 / 0.6 - 0.9 cm IVS Systolic Thickness 1.3 cm LVPW Diastolic Thickness 0.9 cm 0.6 - 1.0 / 0.6 - 0.9 cm LVPW Systolic Thickness 1.3 cm LVOT Diameter 2.0 cm LV Ejection Fraction 2D Teich 13.7 % LV Ejection Fraction MOD 2C 34.8 % LV Ejection Fraction 2C AL 35.3 % LA Diameter 4.5 cm M-MODE Aortic Annulus Diameter 3.6 cm LA Ao Ratio MM 1.2 MV E Point Septal Separation 1.6 cm DOPPLER AV Peak Velocity 229.7 cm/s LVOT Peak Velocity 82.0 cm/s AV Area Cont Eq vti 1.2 cm squared AV Area Cont Eq pk 1.2 cm squared MV Area PHT 5.0 cm squared Mitral E to A Ratio 4.4 MV E' Velocity 56.5 cm/s Mitral E to MV E' Ratio 20.9 Mitral E to LV E' Lateral Ratio 18.4 Mitral E to LV E' Septal Ratio 24.2 TR Peak Velocity 222.3 cm/s TR Peak Gradient 19.8 mmHg TV Peak E Velocity 104.0 cm/s Right Atrial Pressure 3.0 mmHg Pulmonary Artery Systolic Pressu 22.8 mmHg RV Acceleration Time 0.1 s FINDINGS Left Ventricle Severe diffuse hypokinesia of the septum, anteroseptum and apical segments. LV ejection fraction around 35%. Mildly dilated LV cavity Right Ventricle The right ventricle is normal in size and function. Right Atrium The right atrium is normal in size. Left Atrium Mildly increased left atrial size. Mitral Valve Thickened mitral valve. Trace mitral valve regurgitation. Aortic Valve Thickened aortic valve. Mild aortic valve regurgitation. Trace to mild aortic valve regurgitation. Tricuspid Valve Mild tricuspid valve regurgitation. Pulmonic Valve Pulmonic valve not well visualized. Pericardium Normal pericardium without effusion. Aorta Normal ascending aorta dimension. IVC The inferior vena cava appears normal. CONCLUSIONS Severe diffuse hypokinesia of the septum, anteroseptum and apical segments. LV ejection fraction around 35%. Mildly dilated LV cavity. MildThickened mitral valve. Trace mitral valve regurgitation. biatrial enlargement. Thickened aortic valve. Mild aortic valve regurgitation. Mild tricuspid valve regurgitation. There is no pericardial effusion. There are no intracardiac masses. Compared to the study from 08/01/2021, there is worsening of the left ventricular ejection fraction, from 49% to 35% Dr Michelle Rodriguez MD [facility] (Electronically Signed) Final Date: 26 September 2022 16:11 S
== END 2022-09-25 06:00 | disposition home or self-care (01) ==
LOC: RAD 06:00
PROVIDERS: PCP Internal Medicine; Visit Provider Internal Medicine Cardiovascular Disease
DX: I50.9 Heart failure, unspecified (principal); R06.02 Shortness of breath; R60.9 Edema, unspecified; I08.3 Combined rheumatic disorders of mitral, aortic and tricuspid valves
CPT/HCPCS: 93306

== ENCOUNTER → 2022-10-15 14:03 | Outpatient (BNVA) | payer MEDICARE, MEDICAID, SELFPAY | PROVIDERS: PCP Internal Medicine; Visit Provider Nurse Practitioner Family | DX: I25.10 Atherosclerotic heart disease of native coronary artery without angina pectoris (principal); I11.0 Hypertensive heart disease with heart failure; I50.9 Heart failure, unspecified; I25.2 Old myocardial infarction; R94.39 Abnormal result of other cardiovascular function study; I25.5 Ischemic cardiomyopathy; F17.210 Nicotine dependence, cigarettes, uncomplicated | CPT/HCPCS: 99214 ==

== ENCOUNTER 2022-10-29 14:47 | Outpatient (CLI) | payer MEDICARE, MEDICAID, SELFPAY ==
[2022-10-29 15:21] LABS: Basophils # 0.1 10^3/uL (0.0-0.1); Eosinophils # 0.3 10^3/uL (0.0-0.8); Hemoglobin 14.8 g/dL (11.7-16.6); Lymphocytes # 1.5 10^3/uL (0.8-4.8); Lymphocytes % 19.9 %; Mean Corpuscular HGB Conc 31.5 g/dL (30.0-36.0); Mean Corpuscular Hemoglobin 28.3 pg (28.0-34.0); Mean Corpuscular Volume 89.9 fl (80-94); Mean Platelet Volume 11.1 fL (7.4-10.4); Monocytes # 0.3 10^3/uL (0.2-0.9); Monocytes % 4.6 %; Neutrophils # 5.17 10^3/uL (1.8-7.7); Neutrophils % 70.4 %; Nucleated Red Blood Cells % 0 %; Platelet Count 141 10^3/cmm (130-400); Red Blood Count 5.23 10^6/uL (4.1-5.3); Red Cell Distribution Width 13.3 % (12.1-15.1); White Blood Count 7.3 10^3/uL (4.0-10.0)
[2022-10-29 15:32] LABS: INR 1.07 (0.83-1.21); Prothrombin Time (Patient) 14.2 Seconds (12.0-15.1)
[2022-10-29 15:47] LABS: Anion Gap 12.6 (5-19); Blood Urea Nitrogen 8 mg/dL (6-20); Calcium 8.7 mg/dL (8.5-10.5); Carbon Dioxide 33 mmol/L (22-29); Chloride 91 mmol/L (98-107); Glomerular Filtration Rate 100.4 mL/min (90-130); Glucose 224 mg/dL (65-115); NT Pro B Type Natriuretic Pept 6492 pg/mL (0-125); Osmolality Calculated 281 mOsm/kg (285-295); Potassium 3.6 mmol/L (3.5-5.1); Sodium 133 mmol/L (136-145)
== END 2022-10-29 14:48 | disposition home or self-care (01) ==
LOC: LAB 14:52
PROVIDERS: PCP Internal Medicine; Visit Provider Nurse Practitioner Family
DX: I11.0 Hypertensive heart disease with heart failure (principal); I50.9 Heart failure, unspecified; I25.10 Atherosclerotic heart disease of native coronary artery without angina pectoris; I25.5 Ischemic cardiomyopathy
CPT/HCPCS: 36415; 80048; 83880; 85025; 85610; 86850; 86900

== ENCOUNTER → 2022-10-31 11:03 | Outpatient (BNVA) | payer MEDICARE, MEDICAID, SELFPAY | PROVIDERS: PCP Internal Medicine; Visit Provider Surgery | DX: R10.9 Unspecified abdominal pain (principal); K46.9 Unspecified abdominal hernia without obstruction or gangrene | CPT/HCPCS: 99203 ==

== ENCOUNTER 2022-11-03 05:58 | Outpatient (CLI) | payer MEDICARE, MEDICAID, SELFPAY ==
[2022-11-03] VITALS (14 sets, daily range): BP systolic 137–164; BP diastolic 70–91; PULSE 74–92; RESP 12–32; TEMP 37.1; O2SAT 89–97; BMI 37.7
--- NOTE | 2022-11-03 06:00 | XACV_ITS ---
Exam Room: 2 Ht: 178 cm Wt: 119 kg BSA: 2.48 m2 Gender: Male : 1965 Any Known Allergies: No known allergies Exam Priority: Routine Procedure(s): Procedure Description: Diagnostic procedure Procedure Description: Coronary Angiography Diagnostic Cath Status: Elective Diagnostic Findings * Previous LAD stent. Worsening shortness of breath. Pleuritic chest pain on the left. Left ventricular function decreasing by echo and nuclear scanning. Fixed defect by nuclear scanning with small amount of ischemia noted in the distribution of the right coronary artery. Large fixed defect in the distribution of the LAD. Coronary angiography reveals left coronary artery dominance. The left main is normal. The LAD is occluded at the stent. There is minimal collateral flow from the proximal LAD and circumflex as well as the right coronary artery. There is a patent proximal septal branch and a tiny diagonal branch noted proximally. The circumflex contains mild diffuse luminal irregularities. The right coronary artery is a small non-dominant vessel. There is a long 70% stenosis in the proximal portion. There is collateral flow to the LAD.. Recommendations * Medical treatment. Interventional RX Recommendation: medical therapy and/or counseling Diagnostic RX Recommendation: medical therapy and/or counseling Anticoagulation: Heparin Ventriculography Ejection Fraction: 25.0 % Pressures Phase:Rest AO : 138 / 88 ( 110 ) @ 7:31:00 AM 148 / 74 ( 104 ) @ 7:37:00 AM 149 / 76 ( 103 ) @ 7:37:00 AM 150 / 76 ( 105 ) @ 7:37:00 AM LV : 159 / 9 / 39 @ 7:36:00 AM 152 / 11 / 36 @ 7:37:00 AM 153 / 12 / 39 @ 7:37:00 AM Valves Phase:DefaultPhase AV : 5.0 @ 7:44:04 AM AV Mean Gradient: 14.0 @ 7:44:04 AM Clinical Evaluation EBL: 5mL-10mL Procedural Details Procedure Consent Obtained. Admit Source: Out Patient. Pre-Procedure Time Out. Identified patient by full name and date of as verbalized by the patient/guarantor. Does the consent match the physician's order: Yes. Accurate & Complete Informed Consent: Yes. Inpatient/Outpatient History & Physical on Chart: Yes. If H&P is completed, is and addenduem needed: N/A; If yes, is the addendum complete: N/A. Visualize and Verify Site with Patient/Guarantor: N/A. Relevant Radiology Images available: N/A. Pre-op teaching completed and patient verbalized understanding. The risks, benefits, and alternatives of sedation and/or procedure were discussed by physician. The patient agrees to continue. Procedure started. [facility] Clinical Fraility Score: 3: Managing Well. Supervisor Paper Coating Indications: Worsening Angina. Chest Pain Symptom Assessment: Typical Angina Symptoms. Correct patient, site and procedure confirmed by cath team. Current diagnosis: Chest Pain. PERRLA. Strong, equal hand warp hanger bilaterally. Lungs clear x 5 lobes. IV Site on Arrival: 18 gauge in the right anticubital. IV Fluids: 0.9% NaCl at KVO. 0 mL infused prior to chemical processing laborer. Pre Procedural Pulses: bilateral posterior tibial was Doppled. Pre Procedural Pulses: bilateral dorsalis pedis was Doppled. Pre Procedural Pulses: right radial was 3+. Oxygen started at 2liters/min via nasal canula. right groin was prepped with chloroprep then draped in the usual sterile fashion. right radial was prepped with chloroprep then draped in the usual sterile fashion. Physician notified. Baseline sample Acquired. HR: 146 BPM. Physician arrived. Physician scrubbed in. Immediate Pre-Procedure Time Out. Correct Patient: Yes; Correct Procedure: Yes; Correct Site: Yes; Correct Patient Position: Yes; Correct Supplies: Yes; Dried Flammable Prep: Yes; Blood Products Available: N/A;. Lidocaine 1% infiltrated to the right radial. Arterial access obtained. A 6 egyptian TIG catheter in over wire. Multiple views taken of left coronary artery. Catheter redirected to the RCA. Multiple views taken of right coronary artery. Catheter removed over the exchange wire. A 5 egyptian Angled Pig catheter in over wire. EDP Sample taken: LV 159/9,39; HR: 100 BPM; SpO2: 96%. LV gram performed in [place] @ 11 mL/second for a total of 44 mL. EDP Sample taken: LV 152/11,36; HR: 77 BPM; SpO2: 96%. Pullback taken: LV 153/12,39; AO 148/74(104); Mean: 14mmHg, Peak to Peak: 5mmHg, SEP: 18sec/min; HR: 79 BPM; SpO2: 94%. Catheter removed over the exchange wire. Physician review of cine films. A TR Band was successful obtaining hemostatsis at the Right Radial artery insertion site. Post Procedure: Pulses reassessed and unchanged. PERRLA. Strong, equal hand warp hanger bilaterally. No VTE prophylaxis required. Medication's Wasted: Heparin = 1000 u. Medication's Wasted: Lidocaine 1% = 2 mL. Medication's Wasted: Nitro = 49.8 mg. Medication's Wasted: Other = Fentanyl 50 mcg. Total IV fluids: 28 mL. Post-op diagnosis: CAD. Complications: none. Estimated blood loss: 5mL-10mL. Responsiveness - Normal response to verbal stimuli; alert and oriented, PERRLA. Airway - Unaffected, no intervention required; spontaneous ventilation. Circulation: W/N/L, pulses unchanged. Nausea/Vomiting: No. Procedure completed. Patient transferred by wheelchair to CPRU. Vital chart was stopped. Access Site Site: Right Radial artery Sheath Size: 6 Fr Hemostasis Method: TR Band Hemostasis Success: Successful Procedure Medications Start: 7:27 AM Stop: 7:27 AM Medication: Versed Amount: 1 mg Route: I.V. Start: 7:27 AM Stop: 7:27 AM Medication: Fentanyl Amount: 50 mcg Route: I.V. Start: 7:28 AM Stop: 7:28 AM Medication: Heparin Amount: 5000 units Route: I.V. Start: 7:29 AM Stop: 7:29 AM Medication: Versed Amount: 1 mg Route: I.V. Start: 7:28 AM Stop: 7:28 AM Medication: Nitrogylcerin Amount: 200 mcg Route: I.A. I, the attending physician, have reviewed and verified all procedure medications. Yes, all medications given per verbal order History/Risk Factors Hypertension: Yes Dyslipidemia: Yes Peripheral Arterial Disease (PAD): No Myocardial Infarction (OR): Yes Obesity: Yes Renal Disease: No Tobacco Use: Current/Recent(w/in 1 year) Prior Interventions PCI: Yes CABG: No Valve Surgery: No Date of PCI: 10/01/2020 Report Signatures Finalized by Dr. Luciano Barragan MD on 11/03/2022 07:58 AM
[2022-11-03] MEDS: diphenhydrAMINE 50 mg Capsule PO (06:20)
--- NOTE | 2022-11-03 07:15 | W.PM.OPSUD ---
Surgery/Procedure H&P Update DATE OF PROCEDURE: November 03, 2022 DATE H&P PERFORMED: 10/15/22 CHANGES TO PREVIOUS DOCUMENTATION: None PRIMARY INDICATION FOR PROCEDURE: Dhortness of breath PLANNED PROCEDURE: Operation Date: 11/03/22 07:00 Proposed Procedures p [facility] w/wo [id number], I50.9,R94.39,I25.118,I25.5(Left) - Luciano Barragan MD
--- NOTE | 2022-11-03 07:45 | SUR.PHASEII ---
Received the patient back from the lab nurse s/p diagnostic [facility] via wheelchair. patient ambulated to the bed without difficulty. A & O x 3. nurse monitoring placed and vital signs obtained. TR band intact to the right wrist with palpable radial pulse. NS infusing to the right AC at 100 ml/hr per physician order. Lasix IV to be given. See MAR for administration time. no other assessment changes noted from pre cath assessment. Patient currently arranging for a ride home as he drove himself to hospital this AM.
[2022-11-03] MEDS: FUROsemide 10 mg/mL SDV 4mL 40 MG IVP (08:02)
[2022-11-03 08:03] LABS: Glucose Point of Care 123 mg/dL (70-110)
--- NOTE | 2022-11-03 08:37 | SUR.PHASEII ---
Verbal report given to Yuliet Velarde RN.
--- NOTE | 2022-11-03 10:08 | PC.NURSE ---
tr band off with no complications. pt educated on restrictions of right wrist and nurse will continue to educate throughout recovery.
--- NOTE | 2022-11-03 10:36 | P.DS_ITS ---
Discharge Providers Date of Admission: November 03, 2022 Date of Discharge: November 03, 2022 Attending Provider at Admission: dasha Attending Provider at Discharge: Luciano Barragan MD Primary Care Provider: Yusuf Rivera DO Diagnoses at Discharge Discharge Diagnosis (1) Abnormal stress test: Status: Acute (2) COPD (chronic obstructive pulmonary disease): Status: Acute (3) Hypercholesteremia: Status: Acute (4) Hx of myocardial infarction: Status: Acute (5) Congestive heart failure: Status: Acute (6) Atherosclerotic heart disease of [place] coronary artery with other forms of angina pectoris: Status: Acute (7) Carotid stenosis: Status: Acute Qualifiers: Laterality: left Qualified Code(s): I65.22 - Occlusion and stenosis of left carotid artery (8) Type 2 diabetes mellitus with diabetic neuropathy, unspecified: Status: Acute Qualifiers: Diabetes mellitus intermediate frame tender insulin use: without intermediate frame tender use Qualified Code(s): E11.40 - Type 2 diabetes mellitus with diabetic neuropathy, unspecified Permanent problem details: Patient continues to have neuropathy symptoms (9) Ischemic cardiomyopathy: Status: Acute (10) Benign essential HTN: Status: Acute (11) Obstructive sleep apnea: Status: Acute (12) Tobacco use disorder: Status: Chronic Permanent problem details: Smokes to calm his nerves (13) Dyslipidemia: Status: Acute Permanent problem details: Patient is on rosuvastatin. Once the LDL level is around 190 after being on the maximum dose of Crestor, he would be a candidate for a PCSK9 inhibitor. This was discussed with the patient in detail. Patient is going to discuss this with his primary care provider who is managing the lipid profile at this time. Reason for Visit Reason for Visit: I50.9 Brief History: Patient was seen in the office with shortness of breath primarily. He is a long-term smoker, diabetic with known coronary disease and left ventricular dysfunction. Previous stent in the LAD. Stress testing subsequently showed a large fixed defect in the distribution of the LAD and minimal ischemia in the distribution of the right coronary artery. His ejection fraction has decreased. Because of these items, he was recommended for coronary angiography. Hospital Course Hospital Course Angiography revealed an occluded stent in the LAD. There is minimal collateral flow from the LAD, circumflex and the nondominant right. There is a small nondominant right and the right coronary artery has a 60 to 70% lesion proximally. Circumflex is the dominant vessel and has minimal luminal irregularities. His ejection fraction is about 20% with significant regional wall motion disturbances. Physical Exam Narrative: GENERAL: In general he is mildly short of breath at rest but otherwise well HEENT: Exam within normal limits. NECK: Supple without jugular vein distention. The carotid upstroke is normal without bruits. BACK: Exam normal. LUNGS: Clear. HEART: Regular rate and rhythm. ABDOMEN: Benign without organomegaly or tenderness. EXTREMITIES: No edema. At the time of discharge he has a normal right radial artery area without bleeding, hematoma or vascular anomaly. There is a good pulse. NEUROLOGIC: Exam normal. SKIN: Unremarkable. Discharge Data Studies Completed and Pending Completed Studies During Hospitalization Category Date Time Status CONFERENCE COORDINATOR request for service Routine Exams 11/03/22 06:00 Completed Laboratory Results POC Glucose 123 mg/dL (70-110) H 11/03/22 08:00 Procedures Performed Left heart catheterization, coronary angiography, left ventriculography. Vitals Last Vital Signs Temp 98.7 F 11/03/22 06:39 Pulse 75 11/03/22 10:00 Resp 19 H 11/03/22 10:00 BP 153/73 11/03/22 10:00 Pulse Ox 94 11/03/22 10:00 O2 Del Method 11/03/22 10:00 O2 Flow Rate 2 11/03/22 10:00 Discharge Plan Discharge Patient Disposition: Home Prescriptions: Continued isosorbide mononitrate 120 mg tablet extended release 24 hr 120 mg PO DAILY 90 Days Qty: 90 0RF duloxetine [Cymbalta] 30 mg capsule,delayed release(DR/EC) 30 mg PO BID Qty: 60 1RF tamsulosin 0.4 mg capsule 0.4 mg PO DAILY Farxiga 10 mg tablet 10 mg PO DAILY spironolactone 50 mg tablet 50 mg PO DAILY Novolog Mix 70-30FlexPen U-100 100 unit/mL (70-30) insulin pen See Rx Instructions SUBCUT .COMPLEX Rx Instructions: Per sliding Scale SUBCUT per sliding scale; atorvastatin 80 mg tablet 80 mg PO DAILY fluticasone propionate 50 mcg/actuation spray,suspension 1 spray INTRANASAL DAILY cyclobenzaprine 10 mg tablet 10 mg PO BID amlodipine 10 mg tablet 10 mg PO DAILY Lidocaine Viscous 2 % solution 1 applic mucous membrane TID ibuprofen 200 mg capsule 200 mg PO Q6H PRN (Reason: Pain) duloxetine 20 mg capsule,delayed release(DR/EC) 20 mg PO BID furosemide 40 mg tablet 40 mg PO BID Qty: 180 3RF hydrocodone-acetaminophen 10-325 mg tablet 1 tab PO QID PRN (Reason: Pain) albuterol sulfate [Ventolin HFA] 90 mcg/actuation HFA aerosol inhaler See Rx Instructions .ROUTE .COMPLEX Qty: 54 3RF Dose Instruction: INHALE 2 PUFFS BY MOUTH EVERY 6 HOURS NEEDED FOR SHORTNESS OF BREATH AND FOR WHEEZING Rx Instructions: INHALE 2 PUFFS BY MOUTH EVERY 6 HOURS NEEDED FOR SHORTNESS OF BREATH AND FOR WHEEZING Stiolto Respimat 2.5-2.5 mcg/actuation mist See Rx Instructions .ROUTE .COMPLEX Qty: 4 3RF Dose Instruction: Inhale 2 puffs by mouth twice daily Rx Instructions: Inhale 2 puffs by mouth twice daily hydralazine 100 mg tablet 100 mg PO TID Qty: 270 3RF Rx Instructions: Dose increased Entresto 97-103 mg tablet 1 tab PO BID Qty: 180 3RF clopidogrel 75 mg tablet 75 mg PO DAILY Qty: 90 3RF carvedilol 25 mg tablet 25 mg PO BID Qty: 180 3RF nitroglycerin 0.4 mg tablet, sublingual 0.4 mg sublingual Q5M PRN (Reason: chest pain) Qty: 50 5RF potassium chloride [Klor-Con M20] 20 mEq tablet,ER particles/crystals 20 meq PO DAILY Qty: 7 0RF Rx Instructions: take for 7 days aspirin 81 mg Tablet,Delayed Release (Dr/Ec) 81 mg PO DAILY Qty: 90 3RF Tresiba U-100 Insulin 100 unit/mL solution 70 unit SUBCUT DAILY Discharge Orders: Discharge Order (Routine); Ordered 11/03/22 Ordered By: Luciano Barragan Referrals: Sandhya Lopez FNP [Nurse Practitioner] - 7-10 days (Check right radial artery, chemistry panel.) Diet: Diabetic Activity: Increase activity as tolerated and Limit activity as instructed Activity Restrictions/Additional Instructions: No lifting over 5 pounds for 2 days with the right upper extremity. Discharge Attestations Time Spent in Discharge Care*: greater than 30 min Quality Metrics Clinical Quality Measures [ No reported AMI, CVA or VTE this stay] Coding Level of Care Code Established Pt Acute Code for Chg Fwd Patient Type Established History Comprehensive Exam Comprehensive Diagnoses Abnormal stress test R94.39 COPD (chronic obstructive pulmonary disease) J44.9 Hypercholesteremia E78.00 Hx of myocardial infarction I25.2 Congestive heart failure I50.9 Atherosclerotic heart disease of [place] coronary artery with other forms of angina pectoris I25.118 Carotid stenosis I65.22 Laterality: left Type 2 diabetes mellitus with diabetic neuropathy, unspecified E11.40 Diabetes mellitus intermediate frame tender insulin use: without nursing home use Ischemic cardiomyopathy I25.5 Benign essential HTN I10 Obstructive sleep apnea G47.33 Tobacco use disorder F17.200 Dyslipidemia E78.5
[2022-11-03 11:07] LABS: Glucose Point of Care 185 mg/dL (70-110)
== END 2022-11-03 11:04 | disposition home or self-care (01) ==
PROVIDERS: Internal Medicine; Family Provider Internal Medicine Cardiovascular Disease; PCP Internal Medicine; Visit Provider Internal Medicine Cardiovascular Disease
DX: I25.118 Atherosclerotic heart disease of native coronary artery with other forms of angina pectoris (principal); J44.9 Chronic obstructive pulmonary disease, unspecified; E78.00 Pure hypercholesterolemia, unspecified; I25.2 Old myocardial infarction; I11.0 Hypertensive heart disease with heart failure; I50.9 Heart failure, unspecified; I65.22 Occlusion and stenosis of left carotid artery; E11.40 Type 2 diabetes mellitus with diabetic neuropathy, unspecified; I25.5 Ischemic cardiomyopathy; G47.33 Obstructive sleep apnea (adult) (pediatric); F17.200 Nicotine dependence, unspecified, uncomplicated; E78.5 Hyperlipidemia, unspecified
CPT/HCPCS: 36415; 36416; 82962; 93458; 96361; 96365; 99152; C1769; C1887; C1894; J1644; J1940; J2250; J3010; J3490; J7030; Q0163; Q9967

== ENCOUNTER 2022-11-07 12:16 | Outpatient (CLI) | payer MEDICARE, MEDICAID, SELFPAY ==
--- NOTE | 2022-11-07 12:23 | CT_ITS ---
WS: [id number] CT CHEST WITH INTRAVENOUS CONTRAST HISTORY: LUNG NODULE TECHNIQUE: Contiguous 5 mm axial imaging performed on the thorax. Coronal and sagittal reformats are submitted. All CT scans at [facility] use at least one of these dose optimization techniques: automated exposure control; mA and/or kV adjustment per patient size (includes targeted exams where dose is matched to clinical indication); or iterative reconstruction. CONTRAST: Omnipaque 350; 95 mL IV. DLP: 600.16 mGy.cm COMPARISON: 01/07/2022, chest radiograph 10/06/2022 Lungs and central airway: Paraseptal emphysema. Mild peripheral interstitial thickening. Mild depende nt changes at the lung bases. No focal consolidations or pneumonia. The aeration appears improved as compared to the chest radiograph of 10/06/2022. Pleura: Very small RIGHT pleural effusion. Pleural nodules along the RIGHT fissures are stable. Heart and pericardium: Mild enlargement of the LEFT heart chambers. There is no pericardial effusion. No filling defects in the atrial appendage. Coronary artery calcifications. Mediastinum and neena: Numerous mediastinal and hilar lymph nodes. These lymph nodes are very slightly enlarged. Number of lymph nodes has slightly increased. The largest lymph node is subcarinal measuri ng 1.6 cm. LEFT hilar lymph node measures 1.5 cm. Numerous lymph nodes were also present on 01/07/2022 . Lymph nodes are better seen today and appears slightly more prominent. These could be reactive from the patient's acute pulmonary process. Vessels: Normal size aortic and pulmonary artery. No coronary artery calcifications. Chest wall and lower neck: No soft tissue masses. Upper abdomen: Visualized adrenal glands are negative. Very small hiatal hernia. Stomach is nondisten ded. Osseous structures: Increase in thoracic kyphosis. Degenerative disc disease and osteophytosis. CT/CT chest w con* [id number] IMPRESSION: 1. Very mild interstitial edema probably related to CHF. Overall the lungs karlene ear improved as compared to the recent chest radiograph since 10/06/2022. 2. Small RIGHT pleural effusion. 3. LEFT heart enlargement. 4. Mildly prominent mediastinal and hilar lymph nodes. Lymph node in number an d size is slightly increased since 01/07/2022. These are probably reactive lymph nodes. 5. Paraseptal emphysema.
[2022-11-07] MEDS: iohexol 350 mg/mL 500 mL Btl (per mL) IV (12:32)
== END 2022-11-07 12:17 | disposition home or self-care (01) ==
LOC: RAD 12:17
PROVIDERS: PCP Internal Medicine; Visit Provider Internal Medicine
DX: R91.1 Solitary pulmonary nodule (principal); R60.0 Localized edema; J90 Pleural effusion, not elsewhere classified; I51.7 Cardiomegaly; J43.8 Other emphysema
CPT/HCPCS: 71260; Q9967

== ENCOUNTER → 2022-11-10 10:56 | Outpatient (BNVA) | payer MEDICARE, MEDICAID, SELFPAY | PROVIDERS: PCP Internal Medicine; Visit Provider Podiatrist Foot & Ankle Surgery | DX: E11.40 Type 2 diabetes mellitus with diabetic neuropathy, unspecified (principal); B35.1 Tinea unguium; G62.9 Polyneuropathy, unspecified; L85.3 Xerosis cutis; I73.9 Peripheral vascular disease, unspecified; Z79.4 Long term (current) use of insulin | CPT/HCPCS: 11721 ==

== ENCOUNTER → 2022-11-13 08:13 | Outpatient (BNVA) | payer MEDICARE, MEDICAID, SELFPAY | PROVIDERS: PCP Internal Medicine; Visit Provider Nurse Practitioner Family | DX: I25.118 Atherosclerotic heart disease of native coronary artery with other forms of angina pectoris (principal); I11.0 Hypertensive heart disease with heart failure; I50.9 Heart failure, unspecified; I25.2 Old myocardial infarction; I25.5 Ischemic cardiomyopathy; F17.210 Nicotine dependence, cigarettes, uncomplicated; R07.9 Chest pain, unspecified | CPT/HCPCS: 36415; 80048; 83880; 99214 ==

== ENCOUNTER → 2022-12-11 14:56 | Outpatient (BNVA) | payer MEDICARE, MEDICAID, SELFPAY | PROVIDERS: PCP Internal Medicine; Visit Provider Internal Medicine Pulmonary Disease | DX: J42 Unspecified chronic bronchitis (principal); G47.33 Obstructive sleep apnea (adult) (pediatric); I25.10 Atherosclerotic heart disease of native coronary artery without angina pectoris; F17.218 Nicotine dependence, cigarettes, with other nicotine-induced disorders | CPT/HCPCS: 99214 ==

== ENCOUNTER 2023-01-06 10:13 | Outpatient (CLI) | payer MEDICARE, MEDICAID, SELFPAY ==
[2023-01-06 10:32] VITALS: PULSE 64; RESP 18; O2SAT 98
[2023-01-06] MEDS: albuterol 2.5 mg/3 mL Neb INHALATION (10:32)
[2023-01-06 10:37] VITALS: PULSE 69
[2023-01-06 10:50] VITALS: BP 162/83; BP 177/79
== END 2023-01-06 10:14 | disposition home or self-care (01) ==
PROVIDERS: PCP Internal Medicine; Visit Provider Internal Medicine Pulmonary Disease
DX: J44.9 Chronic obstructive pulmonary disease, unspecified (principal)
CPT/HCPCS: 94060; 94618; 94726; 94729; J7613

== ENCOUNTER → 2023-01-19 10:39 | Outpatient (BNVA) | payer MEDICARE, MEDICAID, SELFPAY | PROVIDERS: PCP Internal Medicine; Visit Provider Podiatrist Foot & Ankle Surgery | DX: E11.40 Type 2 diabetes mellitus with diabetic neuropathy, unspecified (principal); B35.1 Tinea unguium; G62.9 Polyneuropathy, unspecified; I73.9 Peripheral vascular disease, unspecified; Z79.4 Long term (current) use of insulin | CPT/HCPCS: 11721 ==

== ENCOUNTER → 2023-01-28 10:33 | Outpatient (BNVA) | payer MEDICARE, MEDICAID, SELFPAY | PROVIDERS: PCP Internal Medicine; Visit Provider Internal Medicine Cardiovascular Disease | DX: I11.0 Hypertensive heart disease with heart failure (principal); I50.9 Heart failure, unspecified; I25.118 Atherosclerotic heart disease of native coronary artery with other forms of angina pectoris; I25.5 Ischemic cardiomyopathy; J44.9 Chronic obstructive pulmonary disease, unspecified; E78.00 Pure hypercholesterolemia, unspecified; E11.40 Type 2 diabetes mellitus with diabetic neuropathy, unspecified; R06.02 Shortness of breath; F17.210 Nicotine dependence, cigarettes, uncomplicated; Z79.4 Long term (current) use of insulin | CPT/HCPCS: 36415; 80048; 83880; 99215 ==

== ENCOUNTER 2023-02-02 12:23 | Outpatient (CLI) | payer MEDICARE, MEDICAID, SELFPAY ==
--- NOTE | 2023-02-02 12:35 | USCV_ITS ---
Yusuf Buck Age: 57 Gender: M : 1965 Exam Date: 02/02/2023 12:53 Ordering Phys: Sandhya Lopez Technologist: Exam Location: [facility] Indication: ef BP: 160 / 90 HR: 66 Rhythm: Sinus Technical Quality: Adequate MEASUREMENTS (Male / Female) Normal Values 2D ECHO LV Diastolic Diameter PLAX 5.4 cm 4.2 - 5.9 / 3.9 - 5.3 cm LV Systolic Diameter PLAX 4.2 cm IVS Diastolic Thickness 1.3 cm 0.6 - 1.0 / 0.6 - 0.9 cm IVS Systolic Thickness 1.9 cm LVPW Diastolic Thickness 1.3 cm 0.6 - 1.0 / 0.6 - 0.9 cm LVPW Systolic Thickness 1.6 cm LVOT Diameter 2.2 cm LV Ejection Fraction 2D Teich 44.3 % LV Ejection Fraction MOD 2C 29.9 % LV Ejection Fraction 2C AL 29.5 % LA Diameter 5.0 cm IVC Diameter 2.1 cm M-MODE Aortic Annulus Diameter 3.4 cm LA Ao Ratio MM 1.5 MV E Point Septal Separation 0.9 cm FINDINGS Left Ventricle Right Ventricle Right Atrium Left Atrium Mitral Valve Aortic Valve Tricuspid Valve Pulmonic Valve Pericardium Aorta IVC CONCLUSIONS This is a limited echocardiogram performed to assess LV systolic function. LV systolic function is moderately reduced with EF of 35 to 40%. Moderate global hypokinesis. Compared to prior echocardiogram from 08/2022, no significant changes are seen Jose M Cuello MD (Electronically Signed) Final Date: 14 Feb 2023 12:07 S
== END 2023-02-02 12:24 | disposition home or self-care (01) ==
PROVIDERS: PCP Internal Medicine; Visit Provider Nurse Practitioner Family
DX: I25.118 Atherosclerotic heart disease of native coronary artery with other forms of angina pectoris (principal); I25.2 Old myocardial infarction; I50.9 Heart failure, unspecified; E11.69 Type 2 diabetes mellitus with other specified complication; Z79.4 Long term (current) use of insulin; E11.40 Type 2 diabetes mellitus with diabetic neuropathy, unspecified; I73.9 Peripheral vascular disease, unspecified; E78.5 Hyperlipidemia, unspecified
CPT/HCPCS: 93308; 99204

== ENCOUNTER 2023-02-12 14:30 | Outpatient (CLI) | payer MEDICARE, MEDICAID, SELFPAY ==
[2023-02-12 15:15] LABS: Alanine Aminotransferase 6 U/L (0-41); Albumin Level 3.8 g/dL (3.5-5.2); Alkaline Phosphatase 106 U/L (40-130); Anion Gap 13.4 (5-19); Aspartate Amino Transferase 9 U/L (0-40); Blood Urea Nitrogen 10 mg/dL (6-20); Calcium 8.4 mg/dL (8.5-10.5); Carbon Dioxide 29 mmol/L (22-29); Chloride 94 mmol/L (98-107); Chol HDL Ratio 4.56 mg/dL (1.0-5.00); Cholesterol 164 mg/dL (0-200); Globulin 2.7 g/dL (1.3-4.6); Glomerular Filtration Rate 100.4 mL/min (90-130); Glucose 166 mg/dL (65-115); HDL Cholesterol 36 mg/dL (60-100); LDL Cholesterol Calculated 118 mg/dL (50-129); LDL HDL Ratio 3.28 RATIO (0.00-3.22); Osmolality Calculated 279 mOsm/kg (285-295); Potassium 3.4 mmol/L (3.5-5.1); Sodium 133 mmol/L (136-145); Total Bilirubin 0.6 mg/dL (0.15-1.2); Total Protein 6.5 g/dL (6.6-8.7); Triglycerides 50 mg/dL (0-150)
[2023-02-12 15:15] LABS: Creatinine Urine, Random 25 mg/dL (39-259); Microalbumin Random Urine 10 ug/dL (0-20)
[2023-02-12 15:18] LABS: Microalbum Creatinine Ratio Ur 400 mg/dL (0-20)
[2023-02-12 15:32] LABS: Estmated Average Glucose 143; Hemoglobin A1C 6.6 % (4.0-6.0)
== END 2023-02-12 14:31 | disposition home or self-care (01) ==
PROVIDERS: PCP Internal Medicine; Visit Provider Internal Medicine
DX: E11.69 Type 2 diabetes mellitus with other specified complication; Z79.4 Long term (current) use of insulin
CPT/HCPCS: 36415; 80053; 80061; 82044; 83036

== ENCOUNTER → 2023-04-09 13:10 | Outpatient (BNVA) | payer MEDICARE, MEDICAID, SELFPAY | PROVIDERS: PCP Internal Medicine; Visit Provider Internal Medicine Pulmonary Disease | DX: J44.9 Chronic obstructive pulmonary disease, unspecified (principal); G47.33 Obstructive sleep apnea (adult) (pediatric); I25.10 Atherosclerotic heart disease of native coronary artery without angina pectoris; F17.210 Nicotine dependence, cigarettes, uncomplicated; Z95.810 Presence of automatic (implantable) cardiac defibrillator; Z95.5 Presence of coronary angioplasty implant and graft | CPT/HCPCS: 99214 ==

== ENCOUNTER → 2023-04-13 09:53 | Outpatient (BNVA) | payer MEDICARE, MEDICAID, SELFPAY | PROVIDERS: PCP Internal Medicine; Visit Provider Podiatrist Foot & Ankle Surgery | DX: I73.9 Peripheral vascular disease, unspecified (principal); B35.1 Tinea unguium; G62.9 Polyneuropathy, unspecified; E11.40 Type 2 diabetes mellitus with diabetic neuropathy, unspecified | CPT/HCPCS: 11721 ==

== ENCOUNTER 2023-05-01 13:03 | Outpatient (CLI) | payer MEDICARE, MEDICAID, SELFPAY ==
--- NOTE | 2023-05-01 14:30 | CT_ITS ---
WS: [id number] LDCT LUNG CANCER SCREENING HISTORY: Cancer Screen TECHNIQUE: Axial imaging performed from the apices to 1 cm below the costophrenic angles. Coronal and sagittal reformats are submitted with axial MIP series. All CT scans at [facility] use at least one of these dose optimization techniques: automated exposure control; mA and/or kV adjustment per patient size (includes targeted exams where dose is matched to clinical indication); or iterativ e reconstruction. DLP: 106.39 mGy.cm DIvol: Mean CTDIvol: 2.60 (mGy) COMPARISON: 11/07/2022 Diagnostic quality: Satisfactory Lungs: Mild pulmonary hypertension. Paraseptal emphysema. No mass, nodule or endobronchial lesions. Heart: Mild cardiomegaly. Calcification versus coronary artery stents.. Other findings: Again noted are mildly prominent with increased number but not enlarged hilar and med iastinal lymph nodes. No upper abdominal abnormality identified. Increase in thoracic kyphosis with m oderate thoracic spondylosis. CT/CT lung screening [id number] IMPRESSION: LUNG-RADS: 1-Negative FOLLOW UP: 12 Month: Continue annual screening with LDCT OTHER FINDINGS (S MODIFIER): None.
== END 2023-05-01 13:04 | disposition home or self-care (01) ==
PROVIDERS: PCP Internal Medicine; Visit Provider Internal Medicine Pulmonary Disease
DX: F17.210 Nicotine dependence, cigarettes, uncomplicated (principal); Z12.2 Encounter for screening for malignant neoplasm of respiratory organs
CPT/HCPCS: 71271

== ENCOUNTER → 2023-05-21 15:38 | Outpatient (BNVA) | payer MEDICARE, MEDICAID, SELFPAY | PROVIDERS: PCP Internal Medicine; Visit Provider Internal Medicine Cardiovascular Disease | DX: R06.02 Shortness of breath (principal); I25.10 Atherosclerotic heart disease of native coronary artery without angina pectoris; I10 Essential (primary) hypertension; I95.1 Orthostatic hypotension; I65.22 Occlusion and stenosis of left carotid artery; G47.33 Obstructive sleep apnea (adult) (pediatric); F17.200 Nicotine dependence, unspecified, uncomplicated | CPT/HCPCS: 36415; 80048; 83880; 99214 ==

== ENCOUNTER 2023-06-05 14:01 | Outpatient (CLI) | payer MEDICARE, MEDICAID, SELFPAY ==
--- NOTE | 2023-06-05 14:30 | USCV_ITS ---
Yusuf Buck Age: 58 Gender: M : 1965 Exam Date: 06/05/2023 14:21 Ordering Phys: Michelle Rodriguez MD ([email or web address] customer insight) Technologist: Tish Villarreal Exam Location: [facility] [place] Indication: LVEF BP: / HR: 47 Rhythm: Sinus Technical Quality: Adequate MEASUREMENTS (Male / Female) Normal Values 2D ECHO LV Diastolic Diameter PLAX 3.7 cm 4.2 - 5.9 / 3.9 - 5.3 cm LV Systolic Diameter PLAX 2.9 cm LV Chamber Size 3.8 cm IVS Diastolic Thickness 1.1 cm 0.6 - 1.0 / 0.6 - 0.9 cm IVS Systolic Thickness 1.1 cm LVPW Diastolic Thickness 1.3 cm 0.6 - 1.0 / 0.6 - 0.9 cm LVPW Systolic Thickness 1.2 cm RV Chamber Size 3.2 cm LVOT Diameter 2.1 cm LV Ejection Fraction 2D Teich 34.6 % LV Ejection Fraction MOD 2C 58.4 % LV Ejection Fraction 2C AL 58.8 % LA Diameter 3.3 cm LA Width 3.5 cm LA Height 4.0 cm RA Width 3.3 cm RA Height 4.2 cm Aorta at Sinotubular Diameter 3.0 cm M-MODE Aortic Annulus Diameter 2.5 cm LA Ao Ratio MM 1.3 MV E Point Septal Separation 0.9 cm FINDINGS Left Ventricle Moderate hypokinesia of the mid and apical septum, anteroseptum and LV apex LV ejection fraction around 40% (visual) Right Ventricle The right ventricle is normal in size and function. Right Atrium The right atrium is normal in size. Left Atrium Upper limit of normal size. Mitral Valve No gross abnormalities noted Aortic Valve No gross abnormalities noted Tricuspid Valve No gross abnormalities noted Pulmonic Valve Pulmonic valve not well visualized. Pericardium No pericardial effusion. Aorta Normal aortic annulus size. IVC Inferior vena cava not visualized. CONCLUSIONS Moderate hypokinesia of the mid and apical septum, anteroseptum and LV apex . LV ejection fraction around 40% (visual). No gross morphology abnormalities of the valve. There is no pericardial effusion. The left atrium appears to be in the upper limit of normal size. Compared to the study from 02/02/2023, there may not be significant change Dr Michelle Rodriguez MD FACC (Electronically Signed) Final Date: 08 June 2023 09:45 S
== END 2023-06-05 14:02 | disposition home or self-care (01) ==
PROVIDERS: PCP Internal Medicine; Visit Provider Internal Medicine Cardiovascular Disease
DX: I42.9 Cardiomyopathy, unspecified (principal)
CPT/HCPCS: 93308

== ENCOUNTER → 2023-06-22 10:09 | Outpatient (BNVA) | payer MEDICARE, MEDICAID, SELFPAY | PROVIDERS: PCP Internal Medicine; Visit Provider Podiatrist Foot & Ankle Surgery | DX: I73.9 Peripheral vascular disease, unspecified (principal); B35.1 Tinea unguium; G62.9 Polyneuropathy, unspecified; E11.40 Type 2 diabetes mellitus with diabetic neuropathy, unspecified | CPT/HCPCS: 11721 ==

== ENCOUNTER → 2023-07-01 10:57 | Outpatient (BNVA) | payer MEDICARE, MEDICAID, SELFPAY | PROVIDERS: PCP Internal Medicine; Visit Provider Internal Medicine | DX: E11.69 Type 2 diabetes mellitus with other specified complication (principal); Z79.4 Long term (current) use of insulin; E11.65 Type 2 diabetes mellitus with hyperglycemia | CPT/HCPCS: 99214 ==

== ENCOUNTER → 2023-08-24 09:52 | Outpatient (BNVA) | payer MEDICARE, MEDICAID, SELFPAY | PROVIDERS: PCP Internal Medicine; Visit Provider Podiatrist Foot & Ankle Surgery | DX: B35.1 Tinea unguium (principal); E11.69 Type 2 diabetes mellitus with other specified complication; Z79.4 Long term (current) use of insulin; G62.9 Polyneuropathy, unspecified; I73.9 Peripheral vascular disease, unspecified | CPT/HCPCS: 11721 ==

== ENCOUNTER → 2023-10-05 07:52 | Outpatient (BNVA) | payer MEDICARE, MEDICAID, SELFPAY | PROVIDERS: PCP Internal Medicine; Visit Provider Internal Medicine | DX: E11.69 Type 2 diabetes mellitus with other specified complication (principal); Z79.4 Long term (current) use of insulin; E78.5 Hyperlipidemia, unspecified | CPT/HCPCS: 99214 ==

== ENCOUNTER → 2023-11-16 09:31 | Outpatient (BNVA) | payer MEDICARE, MEDICAID, SELFPAY | PROVIDERS: PCP Internal Medicine; Visit Provider Podiatrist Foot & Ankle Surgery | DX: B35.1 Tinea unguium (principal); L84 Corns and callosities; E11.69 Type 2 diabetes mellitus with other specified complication; Z79.4 Long term (current) use of insulin; G62.9 Polyneuropathy, unspecified; E11.40 Type 2 diabetes mellitus with diabetic neuropathy, unspecified; I73.9 Peripheral vascular disease, unspecified | CPT/HCPCS: 11056; 11721; 99214 ==

== ENCOUNTER → 2023-11-17 14:04 | Outpatient (BNVA) | payer MEDICARE, MEDICAID, SELFPAY | PROVIDERS: PCP Internal Medicine; Visit Provider Internal Medicine Pulmonary Disease | DX: J44.9 Chronic obstructive pulmonary disease, unspecified (principal); J43.2 Centrilobular emphysema; F17.200 Nicotine dependence, unspecified, uncomplicated; G47.33 Obstructive sleep apnea (adult) (pediatric); I25.10 Atherosclerotic heart disease of native coronary artery without angina pectoris; I11.0 Hypertensive heart disease with heart failure; I50.9 Heart failure, unspecified | CPT/HCPCS: 99214 ==

== ENCOUNTER → 2023-12-02 13:39 | Outpatient (BNVA) | payer MEDICARE, MEDICAID, SELFPAY | PROVIDERS: PCP Internal Medicine; Visit Provider Internal Medicine Cardiovascular Disease | DX: I25.118 Atherosclerotic heart disease of native coronary artery with other forms of angina pectoris (principal); I25.5 Ischemic cardiomyopathy; E78.00 Pure hypercholesterolemia, unspecified; I10 Essential (primary) hypertension; F17.219 Nicotine dependence, cigarettes, with unspecified nicotine-induced disorders | CPT/HCPCS: 99214 ==

== ENCOUNTER 2023-12-04 07:37 | Outpatient (CLI) | payer MEDICARE, MEDICAID, SELFPAY ==
[2023-12-04] MEDS: iohexol 350 mg/mL 500 mL Btl (per mL) PO (08:40)
[2023-12-04] MEDS: iohexol 350 mg/mL 500 mL Btl (per mL) IV (08:40)
--- NOTE | 2023-12-04 09:00 | CTR_ITS ---
PROCEDURE INFORMATION: Exam: CT Abdomen And Pelvis With Contrast Exam date and time: 12/04/2023 8:41 AM Age: 58 years old Clinical indication: Abdominal pain; Generalized; Prior surgery; Surgery date: 6+ months; Patient HX: Umbilical pain radiating into left testicle, HX of umbilical hernia surgery; Additional info: HX of hernia complications and abdominal pain, iv/po TECHNIQUE: Imaging protocol: Computed tomography of the abdomen and pelvis with contrast. Radiation optimization: All CT scans at this facility use at least one of these dose optimization techniques: automated exposure control; mA and/or kV adjustment per patient size (includes targeted exams where dose is matched to clinical indication); or iterative reconstruction. Contrast material: OMNI 350; Contrast volume: 100 ml; Contrast route: INTRAVENOUS (IV); COMPARISON: CT abdomen w con* [id number] 04/07/2019 9:30 AM RADIATION DOSE METRICS: Total DLP (mGy-cm): 874.68 FINDINGS: Liver: Normal. No mass. Gallbladder and bile ducts: Normal. No calcified stones. No ductal dilation. Pancreas: Normal. No ductal dilation. Spleen: 13 cm splenomegaly. Adrenal glands: Normal. No mass. Kidneys and ureters: Normal. No hydronephrosis. Stomach and bowel: Mild diverticulosis without evidence of diverticulitis. Mild diverticulosis without evidence of diverticulitis. Appendix: No evidence of appendicitis. Intraperitoneal space: Unremarkable. No free air. No significant fluid collection. Vasculature: Unremarkable. No abdominal aortic aneurysm. Lymph nodes: Unremarkable. No enlarged lymph nodes. Urinary bladder: Unremarkable as visualized. Reproductive: Unremarkable as visualized. Bones/joints: 15 mm spherical hyperdense cyst or mass arising from the lateral cortex of the right lower pole. This was not present in 2019. Ultrasound recommended to evaluate for developing cyst versus mass. Soft tissues: Unremarkable. CT/CT abdomen pelvis w con* [id number] IMPRESSION: 1. No acute findings. 2. Ultrasound of the right kidney recommended. Small cyst versus mass has developed.
== END 2023-12-04 07:38 | disposition home or self-care (01) ==
LOC: RAD 07:37
PROVIDERS: PCP Internal Medicine; Visit Provider Surgery
DX: K46.9 Unspecified abdominal hernia without obstruction or gangrene (principal); R10.9 Unspecified abdominal pain
CPT/HCPCS: 74177; 99214; Q9967

== ENCOUNTER → 2024-01-06 11:26 | Outpatient (BNVA) | payer MEDICARE, MEDICAID, SELFPAY | PROVIDERS: PCP Internal Medicine; Visit Provider Internal Medicine | DX: E11.69 Type 2 diabetes mellitus with other specified complication (principal); Z79.4 Long term (current) use of insulin | CPT/HCPCS: 36415; 80053; 80061; 82044; 83036; 99214 ==

== ENCOUNTER → 2024-01-20 13:37 | Outpatient (BNVA) | payer MEDICARE, MEDICAID, SELFPAY | PROVIDERS: PCP Internal Medicine; Visit Provider Podiatrist Foot & Ankle Surgery | DX: B35.1 Tinea unguium (principal); L84 Corns and callosities; E11.69 Type 2 diabetes mellitus with other specified complication; Z79.4 Long term (current) use of insulin; G62.9 Polyneuropathy, unspecified; E11.40 Type 2 diabetes mellitus with diabetic neuropathy, unspecified; I73.9 Peripheral vascular disease, unspecified | CPT/HCPCS: 11721 ==

== ENCOUNTER → 2024-03-07 09:17 | Outpatient (BNVA) | payer MEDICARE, MEDICAID, SELFPAY | PROVIDERS: PCP Internal Medicine; Visit Provider Internal Medicine | DX: E11.69 Type 2 diabetes mellitus with other specified complication (principal); Z79.4 Long term (current) use of insulin; E78.5 Hyperlipidemia, unspecified | CPT/HCPCS: 99214 ==

== ENCOUNTER → 2024-03-21 14:44 | Outpatient (BNVA) | payer MEDICARE, MEDICAID, SELFPAY | PROVIDERS: PCP Internal Medicine; Visit Provider Podiatrist Foot & Ankle Surgery | DX: B35.1 Tinea unguium (principal); L84 Corns and callosities; E11.69 Type 2 diabetes mellitus with other specified complication; Z79.4 Long term (current) use of insulin; G62.9 Polyneuropathy, unspecified; E11.40 Type 2 diabetes mellitus with diabetic neuropathy, unspecified; I73.9 Peripheral vascular disease, unspecified | CPT/HCPCS: 11721 ==

== ENCOUNTER → 2024-05-23 14:38 | Outpatient (BNVA) | payer MEDICARE, MEDICAID, SELFPAY | PROVIDERS: PCP Internal Medicine; Visit Provider Podiatrist Foot & Ankle Surgery | DX: B35.1 Tinea unguium (principal); L84 Corns and callosities; E11.69 Type 2 diabetes mellitus with other specified complication; Z79.4 Long term (current) use of insulin; G62.9 Polyneuropathy, unspecified; E11.40 Type 2 diabetes mellitus with diabetic neuropathy, unspecified; I73.9 Peripheral vascular disease, unspecified | CPT/HCPCS: 11721 ==

== ENCOUNTER 2024-06-06 13:48 | Outpatient (CLI) | payer MEDICARE, MEDICAID, SELFPAY ==
[2024-06-06 14:47] LABS: Estmated Average Glucose 126
[2024-06-06 14:49] LABS: Alanine Aminotransferase 6 U/L (0-41); Alkaline Phosphatase 88 U/L (40-130); Anion Gap 18.3 (5-19); Aspartate Amino Transferase 9 U/L (0-40); Blood Urea Nitrogen 9 mg/dL (6-20); Calcium 8.5 mg/dL (8.5-10.5); Carbon Dioxide 25 mmol/L (22-29); Chloride 95 mmol/L (98-107); Chol HDL Ratio 6.69 mg/dL (1.0-5.00); Cholesterol 214 mg/dL (0-200); Globulin 2.6 g/dL (1.3-4.6); Glucose 211 mg/dL (65-115); HDL Cholesterol 32 mg/dL (60-100); LDL Cholesterol Calculated 169 mg/dL (50-129); LDL HDL Ratio 5.28 RATIO (0.00-3.22); Osmolality Calculated 285 mOsm/kg (285-295); Potassium 3.3 mmol/L (3.5-5.1); Sodium 135 mmol/L (136-145); Total Bilirubin 0.6 mg/dL (0.15-1.2); Total Protein 6.6 g/dL (6.6-8.7); Triglycerides 66 mg/dL (0-150)
[2024-06-06 14:54] LABS: Creatinine Urine, Random 50 mg/dL (39-259); Microalbumin Random Urine 3 ug/dL (0-20)
[2024-06-06 15:01] LABS: Microalbum Creatinine Ratio Ur 60 mg/dL (0-20)
== END 2024-06-06 13:49 | disposition home or self-care (01) ==
LOC: LAB 13:49
PROVIDERS: PCP Internal Medicine; Visit Provider Internal Medicine
DX: Z79.4 Long term (current) use of insulin (principal); E11.69 Type 2 diabetes mellitus with other specified complication; E78.5 Hyperlipidemia, unspecified
CPT/HCPCS: 36415; 80053; 80061; 82044; 83036

== ENCOUNTER → 2024-06-10 09:36 | Outpatient (BNVA) | payer MEDICARE, MEDICAID, SELFPAY | PROVIDERS: PCP Internal Medicine; Visit Provider Nurse Practitioner Family | DX: I25.5 Ischemic cardiomyopathy (principal); I11.0 Hypertensive heart disease with heart failure; I50.22 Chronic systolic (congestive) heart failure; I25.10 Atherosclerotic heart disease of native coronary artery without angina pectoris | CPT/HCPCS: 80048; 83880; 99214 ==

== ENCOUNTER → 2024-06-15 11:51 | Outpatient (BNVA) | payer MEDICARE, MEDICAID, SELFPAY | PROVIDERS: PCP Internal Medicine; Visit Provider Internal Medicine | DX: E11.69 Type 2 diabetes mellitus with other specified complication (principal); Z79.4 Long term (current) use of insulin; E78.5 Hyperlipidemia, unspecified | CPT/HCPCS: 99214 ==

== ENCOUNTER → 2024-06-24 10:16 | Outpatient (BNVA) | payer MEDICARE, MEDICAID, SELFPAY | PROVIDERS: PCP Internal Medicine; Visit Provider Nurse Practitioner Family | DX: I44.0 Atrioventricular block, first degree (principal); I21.9 Acute myocardial infarction, unspecified; R94.31 Abnormal electrocardiogram [ECG] [EKG]; R07.89 Other chest pain; I49.8 Other specified cardiac arrhythmias; F17.210 Nicotine dependence, cigarettes, uncomplicated | CPT/HCPCS: 93005; 99213 ==

== ENCOUNTER → 2024-07-25 14:45 | Outpatient (BNVA) | payer MEDICARE, MEDICAID, SELFPAY | PROVIDERS: PCP Internal Medicine; Visit Provider Podiatrist Foot & Ankle Surgery | DX: B35.1 Tinea unguium (principal); E11.40 Type 2 diabetes mellitus with diabetic neuropathy, unspecified; E11.69 Type 2 diabetes mellitus with other specified complication; Z79.4 Long term (current) use of insulin; I73.9 Peripheral vascular disease, unspecified; G62.9 Polyneuropathy, unspecified; L84 Corns and callosities | CPT/HCPCS: 11721 ==

== ENCOUNTER 2024-08-31 13:13 | Inpatient (IN) | payer MEDICARE, MEDICAID, SELFPAY ==
[2024-08-31] VITALS (18 sets, daily range): BP systolic 106–133; BP diastolic 65–83; PULSE 69–77; RESP 12–22; TEMP 36.4–36.7; O2SAT 98–100; BMI 43.0
--- NOTE | 2024-08-31 13:19 | USR_ITS ---
PROCEDURE INFORMATION: Exam: US Duplex Bilateral Lower Extremity Arteries Exam date and time: 08/31/2024 2:12 PM Age: 59 years old Clinical indication: Pain; Leg, lower; Bilateral; Additional info: Leg pain TECHNIQUE: Imaging protocol: Real-time ultrasound scan of the arteries of the bilateral lower extremities with 2-D temple scale, color Doppler flow and spectral waveform analysis. Images documented and saved. COMPARISON: CT abdomen pelvis w con* [id number] 12/04/2023 8:41 AM FINDINGS: Right external iliac artery: Patent. Biphasic waveform. Right common femoral artery: Grossly patent. Abnormal monophasic waveform. Right superficial femoral artery: Grossly patent. Abnormal monophasic waveform. Right popliteal artery: Grossly patent. Abnormal monophasic waveform. Right calf/foot arteries: Grossly patent. Abnormal monophasic waveform. Left external iliac artery: Patent. Biphasic waveform. Left common femoral artery: Grossly patent. Abnormal monophasic waveform. Left superficial femoral artery: Grossly patent. Abnormal monophasic waveform. Left popliteal artery: Grossly patent. Abnormal monophasic waveform. Left calf/foot arteries: Grossly patent. Abnormal monophasic waveform. US/CV arterial duplex [facility] [id number] IMPRESSION: 1. Abnormal arterial waveforms in both lower extremities suggesting hemodynamically significant stenoses without total occlusion. Correlation with CT angiography and vascular evaluation is recommended.
--- NOTE | 2024-08-31 13:19 | XRR_ITS ---
PROCEDURE INFORMATION: Exam: XR Chest Exam date and time: 08/31/2024 1:25 PM Age: 59 years old Clinical indication: Shortness of breath; Additional info: SOB TECHNIQUE: Imaging protocol: Radiologic exam of the chest. Views: 1 view. COMPARISON: CT lung screening [id number] 05/01/2023 1:19 PM FINDINGS: Lungs: No focal consolidation. Peripheral mid to lower left lung hazy opacities compatible with atelectasis or developing infection in the proper clinical setting. Pleural spaces: No evidence of pneumothorax. No evidence of pleural effusion. Heart/Mediastinum: Cardiomediastinal silhouette is within normal limits. Bones/joints: No evidence of acute osseous abnormality. XR/XR chest 1V portable [id number] IMPRESSION: 1. Peripheral mid to lower left lung hazy opacities compatible with atelectasis or developing infection in the proper clinical setting.
--- NOTE | 2024-08-31 13:20 | ECG_ITS ---
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 Measurements Intervals [place] Rate: 68 P: 43 CO: 213 QRS: 63 QRSD: 108 T: 57 QT: 396 QTc: 424 Interpretive Statements SINUS RHYTHM WITH FIRST DEGREE AV BLOCK ANTEROSEPTAL MYOCARDIAL INFARCTION , OF INDETERMINATE AGE [40+ ms Q WAVE IN V1-V4] Compared to ECG 06/24/2024 10:23:13 T-wave abnormality no longer present Possible ischemia no longer present Myocardial infarct finding still present Electronically Signed On 08-31-2024 19:21:15 [employer] WRAPPING EXAMINER by Michelle Rodriguez M.D. [id number]
[2024-08-31 13:34] LABS: Glucose Point of Care 139 mg/dL (70-110)
--- NOTE | 2024-08-31 13:42 | ED_ITS ---
HPI - Extremity Problem 2 General: Chief complaint: Extremity Problem,Nontraumatic Stated complaint: Leg Pain Time Seen by Provider: 08/31/24 13:15 Source: patient Mode of arrival: ambulatory Limitations: no limitations History of Present Illness: 59-year-old male is here with EMS he sta sravan he has had increasing leg swelling over the last month does have a history of edema along with CHF and multiple other medical issues. He states he is having increasing pain in weeping from his legs he is on Lasix he denies any shortness of breath denies any fever states has had increasing leg pain over the last month as well. Associated symptoms: Deny chest pain, fever(s) or rash Related Data Home Medications Medication Instructions Recorded Confirmed spironolactone 50 mg tablet 50 mg PO DAILY 09/26/19 08/31/24 tamsulosin 0.4 mg capsule 0.4 mg PO DAILY 09/26/19 08/31/24 cyclobenzaprine 10 mg tablet 10 mg PO BID 04/09/20 08/31/24 fluticasone propionate 50 1 spray intranasal DAILY 04/09/20 08/31/24 mcg/actuation nasal spray,suspension ibuprofen 200 mg capsule 200 mg PO Q6H PRN Pain 12/12/20 08/31/24 lidocaine HCl 2 % mucosal solution 1 applic mucous membrane TID 12/12/20 08/31/24 duloxetine 20 mg capsule,delayed 20 mg PO BID 06/23/22 08/31/24 release hydrocodone 10 mg-acetaminophen 1 tab PO QID PRN Pain 09/10/22 08/31/24 325 mg tablet carvedilol 25 mg tablet 25 mg PO BID 08/31/24 08/31/24 dapagliflozin propanediol 10 mg 10 mg PO DAILY 08/31/24 08/31/24 tablet (Farxiga) ranolazine 500 mg tablet,extended 500 mg PO BID 08/31/24 08/31/24 release,12 hr Previous Rx's Medication Instructions Recorded aspirin 81 mg tablet,delayed 81 mg PO DAILY #90 tabs 10/02/20 release isosorbide mononitrate 120 mg 120 mg PO DAILY 90 days #90 tabs 10/17/21 tablet,extended release 24 hr Diabetic shoes with 3 pairs of #1 ea 01/19/23 custom molded inserts blood-glucose meter,continuous #1 ea 07/01/23 (Dexcom G7 Forestry Worker) blood-glucose sensor (Dexcom G7 #9 ea 07/01/23 Sensor device) furosemide 40 mg tablet 40 mg PO BID #180 tabs 09/25/23 nitroglycerin 0.4 mg sublingual See Rx Instructions .Route 04/22/24 tablet .COMPLEX #50 tabs budesonide 160 mcg-glycopyr 9 2 inh inhalation BID #10.7 grams 05/20/24 mcg-formot 4.8 mcg/actuation HFA inhaler (Breztri Aerosphere) potassium chloride 10 mEq 10 meq PO DAILY #90 tabs 05/24/24 tablet,extended release(part/cryst) clopidogrel 75 mg tablet 75 mg PO DAILY #90 tabs 06/10/24 sacubitril 97 mg-valsartan 103 mg 1 tab PO BID #180 tabs 06/10/24 tablet (Entresto) evolocumab 140 mg/mL subcutaneous 140 mg SUBCUT .q 2weeks #2 mL 06/15/24 pen injector (Repatha SureClick) Novolog FlexPen U-100 Insulin 100 See Rx Instructions .Route 08/02/24 unit/mL (3 mL) subcutaneous .COMPLEX #94.5 mL (insulin aspart U-100) Tresiba FlexTouch U-100 100 See Rx Instructions .Route 08/02/24 unit/mL (3 mL) subcutaneous pen .COMPLEX #90 mL (insulin degludec) Allergies Allergy/AdvReac Type Severity Reaction Status Date / Time No Known Allergies Allergy Verified 08/31/24 13:26 Review of Systems 2 Const: Denies: fever(s), chills, body aches or change in appetite ENMT: Denies: throat pain or dental pain Card: Denies: chest pain Resp: Denies: dyspnea GI: Denies: abdominal pain, nausea, vomiting or diarrhea Musc: Reports: extremity pain and extremity swelling; Denies: neck pain or back pain Skin/Breast: Denies: rash Neuro: Denies: headache(s) PFSH ED 2 PFSH: Medical History Chest pain, unspecified History of intravenous drug use in remission COPD (chronic obstructive pulmonary disease) Congestive heart failure Angina pectoris Hematuria, microscopic Acute pharyngitis, unspecified Hx of myocardial infarction Chronic low back pain Benign essential HTN Arthritis Encounter for long-term (current) use of NSAIDs Atypical chest pain Benign prostatic hyperplasia without lower urinary tract symptoms High blood pressure Hypercholesteremia Mixed hyperlipidemia Diabetes mellitus Long-term current use of opiate analgesic Pain management contract signed DDD (degenerative disc disease), lumbar Tobacco use disorder Smokes to calm his nerves Chronic pain of both knees Gastro-esophageal reflux disease without esophagitis Right testicular pain Calculus of kidney Fracture of arm Abdominal pain of unknown etiology Adhesive tendinitis Male erectile dysfunction, unspecified Abscess, dental Migraine Intervertebral disc disorders with radiculopathy, lumbar region Acute bilateral knee pain Acute left-sided low back pain Other long term care social worker (current) drug therapy Type 2 diabetes mellitus with diabetic neuropathy, unspecified Patient continues to have neuropathy symptoms Aortic valvar stenosis Nicotine dependence, unspecified, uncomplicated Fracture of wrist Surgical History History of PTCA S/P tendon repair H/O hernia repair H/O umbilical hernia repair H/O knee surgery Family History Mother , Metastasis Cancer Hypertension Stomach ulcer Arthritis Father , Gunshot Hypertension Sister Clotting disorder Grandmother CAD (coronary artery disease) Cancer Stroke Grandfather CAD (coronary artery disease) Cancer Family/Other Suicide Other Heart disease Denies family history of Diabetes Dementia Chronic kidney disease (CKD) Anesthesia complication Bleeding disorder Lung disease Social History Smoking and tobacco/nicotine status: current every day tobacco/nicotine user cigarettes Packs smoked per day: 1.5 Years cigarettes smoked: 35 Alcohol intake: former Year of sobriety/quit date alcohol: 2014 Substance/Drug Use: never Lives independently: Yes Household members: none Marital status: Legally Current occupational status: disabled Do you think of yourself as: Straight/Heterosexual Current gender identity: Male Physical Exam 2 Const: COMMON NORMALS: patient oriented x3 HENMT: COMMON NORMALS: normocephalic and atraumatic HEAD & SCALP: n ormocephalic and atraumatic Eye: COMMON NORMALS: conjunctivae normal CONJUNCTIVA: Yes conjunctivae normal Neck/C-Spine: COMMON NORMALS: full ROM and supple Chest: COMMONS NORMALS: normal inspection of the chest and normal palpation of entire chest wall Resp: COMMON NORMALS: normal respiratory effort, No retractions, No use of accessory muscles and clear to auscultation bilaterally AUSCULTATION: clear to auscultation bilaterally Cardio: COMMON NORMALS: regular rate, regular rhythm and No murmurs present (Cardio) RATE: regular rate RHYTHM: regular rhythm Extremity: COMMON NORMALS: full ROM NARRATIVE EXTREMITY EXAM: Swelling in bilateral legs 3+ edema with weeping no cellulitis Neuro: COMMON NORMALS: patient oriented x3, moves all extremities and no focal motor deficits Psych: COMMON NORMALS: mental status grossly normal, Normal thought process present and cooperative THOUGHT PROCESS: Normal thought process present Skin: COMMON NORMALS: no rashes or lesions noted and no wounds GENERAL SKIN EXAM: no rashes or lesions noted Course 2 Vital Signs: Vital signs: Vital Signs Temperature 98.0 F 08/31/24 13:18 Pulse Rate 71 08/31/24 14:30 Respiratory Rate 16 08/31/24 15:56 Blood Pressure 119/67 08/31/24 14:30 Pulse Oximetry 100 08/31/24 14:30 Oxygen Delivery Me thod Room Air 08/31/24 13:18 MDM - Extremity (Nontraumatic) Medical Decision Making Patient presents with bilateral lower extremity edema with weeping likely CHF his BNP is quite elevated as well did give him IV Lasix here I spoke to hospitalist will admit at this time for further diuresis Medical Records I reviewed the patient's medical records. Lab Data I reviewed the patient's lab results. 08/31/24 13:30 08/31/24 13:30 Radiology Impressions Chest X-Ray 08/31/24 13:19 IMPRESSION: 1. Peripheral mid to lower left lung hazy opacities compatible with atelectasis or developing infection in the proper clinical setting. Laboratory Results WBC 13.97 10^3/uL (3.29-11.43) H 08/31/24 13:30 RBC 5.35 10^6/uL (3.85-5.65) 08/31/24 13:30 Hgb 14.70 g/dL (11.27-16.99) 08/31/24 13:30 Hct 46.6 % (37-53) 08/31/24 13:30 MCV 87.1 fl (82-101) 08/31/24 13:30 MCH 27.5 pg (27-33) 08/31/24 13:30 MCHC 31.5 g/dL (30-55) 08/31/24 13:30 RDW 16.5 % (12.1-15.1) H 08/31/24 13:30 Plt Count 117 10^3/cmm (157-399) L 08/31/24 13:30 MPV 12.6 fL (7.4-10.4) H 08/31/24 13:30 Neut % (Auto) 85.2 % 08/31/24 13:30 Lymph % (Auto) 5.7 % 08/31/24 13:30 [place] % (Auto) 6.1 % 08/31/24 13:30 Eos % (Auto) 0.0 % 08/31/24 13:30 Baso % (Auto) 0.4 % 08/31/24 13:30 Neut # (Auto) 11.90 10^3/uL (1.8-7.7) H 08/31/24 13:30 Lymph # (Auto) 0.8 10^3/uL (0.8-4.8) 08/31/24 13:30 [place] # (Auto) 0.9 10^3/uL (0.2-0.9) 08/31/24 13:30 Eos # (Auto) 0.0 10^3/uL (0.0-0.8) 08/31/24 13:30 Baso # (Auto) 0.1 10^3/uL (0.0-0.1) 08/31/24 13:30 Nucleated RBC % (auto) 0 % 08/31/24 13:30 Nucleated RBCs # 0.0 /100WBC 08/31/24 13:30 PT 17.00 SECONDS (12.1-14.9) H 08/31/24 13:30 INR 1.33 (0.8-1.2) H 08/31/24 13:30 Sodium 128 mmol/L (136-145) L 08/31/24 13:30 Potassium 4.0 mmol/L (3.5-5.1) 08/31/24 13:30 Chloride 86 mmol/L (98-107) L 08/31/24 13:30 Carbon Dioxide 23 mmol/L (22-29) 08/31/24 13:30 Anion Gap 23.0 (5-19) H 08/31/24 13:30 BUN 28 mg/dL (6-20) H 08/31/24 13:30 Creatinine 1.2 mg/dL (0.7-1.2) 08/31/24 13:30 GFR Calculation 62.4 mL/min (90-130) L 08/31/24 13:30 Glucose 144 mg/dL (65-115) H 08/31/24 13:30 POC Glucose 139 mg/dL (70-110) H 08/31/24 13:29 Calculated Osmolality 274 mOsm/kg (285-295) L 08/31/24 13:30 Calcium 8.7 mg/dL (8.5-10.5) 08/31/24 13:30 Total Bilirubin 2.0 mg/dL (0.15-1.2) H 08/31/24 13:30 AST 18 U/L (0-40) 08/31/24 13:30 ALT 16 U/L (0-41) 08/31/24 13:30 Alkaline Phosphatase 137 U/L (40-130) H 08/31/24 13:30 NT-Pro-B Natriuret Pep 93872 pg/mL (0-125) H 08/31/24 13:30 Total Protein 5.5 g/dL (6.6-8.7) L 08/31/24 13:30 Albumin 3.0 g/dL (3.5-5.2) L 08/31/24 13:30 Globulin 2.5 g/dL (1.3-4.6) 08/31/24 13:30 All radiology interpretation(s) finalized by discharge Discharge Plan Discharge Patient Disposition: Admitted As Inpatient Clinical Impression: CHF (congestive heart failure), Bilateral edema of lower extremity Condition: Stable Prescriptions: No Action isosorbide mononitrate 120 mg tablet extended release 24 hr 120 mg PO DAILY 90 Days Qty: 90 0RF tamsulosin 0.4 mg capsule 0.4 mg PO DAILY spironolactone 50 mg tablet 50 mg PO DAILY fluticasone propionate 50 mcg/actuation spray,suspension 1 spray INTRANASAL DAILY cyclobenzaprine 10 mg tablet 10 mg PO BID lidocaine HCl 2 % solution 1 applic mucous membrane TID ibuprofen 200 mg capsule 200 mg PO Q6H PRN (Reason: Pain) clopidogrel 75 mg tablet 75 mg PO DAILY Qty: 90 3RF Entresto 97-103 mg tablet 1 tab PO BID Qty: 180 3RF duloxetine 20 mg capsule,delayed release(DR/EC) 20 mg PO BID hydrocodone-acetaminophen 10-325 mg tablet 1 tab PO QID PRN (Reason: Pain) (DME) Diabetic shoes with 3 pairs of custom molded inserts See Rx Instructions .Route .MEDSUPPLY Qty: 1 0RF Rx Instructions: As directed HOME (DME) Dexcom G7 Sensor Device See Rx Instructions .Route Qty: 9 0RF Rx Instructions: As directed (DME) Dexcom G7 Forestry Worker Misc See Rx Instructions .Route Qty: 1 0RF Rx Instructions: As directed Repatha SureClick 140 mg/mL pen injector 140 mg SUBCUT .q 2weeks Qty: 2 3RF furosemide 40 mg tablet 40 mg PO BID Qty: 180 3RF nitroglycerin 0.4 mg tablet, sublingual See Rx Instructions .ROUTE .COMPLEX Qty: 50 5RF Dose Instruction: place one tab UNDER THE TONGUE every five minutes NEEDED FOR CHEST pain * max THREE doses * Rx Instructions: place one tab UNDER THE TONGUE every five minutes NEEDED FOR CHEST pain * max THREE doses * Breztri Aerosphere 160-9-4.8 mcg/actuation HFA aerosol inhaler 2 inh inhalation BID Qty: 10.7 6RF potassium chloride 10 mEq tablet,ER particles/crystals 10 meq PO DAILY Qty: 90 3RF insulin degludec [Tresiba FlexTouch U-100] 100 unit/mL (3 mL) insulin pen See Rx Instructions .ROUTE .COMPLEX Qty: 90 0RF Dose Instruction: INJECT 70 UNITS EVERY MORNING AND 30 UNITS EVERY EVENING Rx Instructions: INJECT 70 UNITS EVERY MORNING AND 30 UNITS EVERY EVENING insulin aspart U-100 [Novolog FlexPen U-100 Insulin] 100 unit/mL (3 mL) insulin pen See Rx Instructions .ROUTE .COMPLEX Qty: 94.5 0RF Dose Instruction: INJECT 35 UNITS SUBCUTANEOUSLY THREE TIMES DAILY AND PER SLIDING SCALE Rx Instructions: INJECT 35 UNITS SUBCUTANEOUSLY THREE TIMES DAILY AND PER SLIDING SCALE aspirin 81 mg Tablet,Delayed Release (Dr/Ec) 81 mg PO DAILY Qty: 90 3RF carvedilol 25 mg tablet 25 mg PO BID Rx Instructions: TAKE 1 TABLET BY MOUTH TWICE DAILY ranolazine 500 mg tablet extended release 12 hr 500 mg PO BID dapagliflozin propanediol [Farxiga] 10 mg tablet 10 mg PO DAILY Rx Instructions: TAKE 1 TABLET BY MOUTH EVERY DAY Referrals: Yusuf Rivera DO [Primary Care Provider] - Coding Level of Care Code ED Trade Union Official for Yee Ibrahim
[2024-08-31] MEDS: FUROsemide 10 mg/mL SDV 10mL 60 MG IVP (13:54)
[2024-08-31 13:59] LABS: Basophils # 0.1 10^3/uL (0.0-0.1); Basophils % 0.4 %; Hematocrit 46.6 % (37-53); Lymphocytes # 0.8 10^3/uL (0.8-4.8); Lymphocytes % 5.7 %; Mean Corpuscular HGB Conc 31.5 g/dL (30-55); Mean Corpuscular Hemoglobin 27.5 pg (27-33); Mean Corpuscular Volume 87.1 fl (82-101); Mean Platelet Volume 12.6 fL (7.4-10.4); Monocytes # 0.9 10^3/uL (0.2-0.9); Monocytes % 6.1 %; Neutrophils % 85.2 %; Nucleated Red Blood Cells % 0 %; Platelet Count 117 10^3/cmm (157-399); Red Blood Count 5.35 10^6/uL (3.85-5.65); Red Cell Distribution Width 16.5 % (12.1-15.1); White Blood Count 13.97 10^3/uL (3.29-11.43)
[2024-08-31 14:05] LABS: INR 1.33 (0.8-1.2)
[2024-08-31] MEDS: morphine 4 mg/mL SDV 1 mL IVP (14:11)
[2024-08-31 14:20] LABS: Alanine Aminotransferase 16 U/L (0-41); Alkaline Phosphatase 137 U/L (40-130); Aspartate Amino Transferase 18 U/L (0-40); Blood Urea Nitrogen 28 mg/dL (6-20); Calcium 8.7 mg/dL (8.5-10.5); Carbon Dioxide 23 mmol/L (22-29); Chloride 86 mmol/L (98-107); Creatinine Clr Calc Pharmacy 81.6735; Globulin 2.5 g/dL (1.3-4.6); Glomerular Filtration Rate 62.4 mL/min (90-130); Glucose 144 mg/dL (65-115); NT Pro B Type Natriuretic Pept 27316 pg/mL (0-125); Osmolality Calculated 274 mOsm/kg (285-295); Sodium 128 mmol/L (136-145); Total Protein 5.5 g/dL (6.6-8.7)
--- NOTE | 2024-08-31 15:50 | PC.PHAR ---
Patient states he took morning meds today and he had brought a list and gave it to EMS . It wasn't in his file. I talked to the Pharmacy and verified Medications. Patient isn't sure of the names said to contact the Pharmacy .
[2024-08-31] MEDS: HYDROmorphone 1 mg/mL INJ 1 mL IVP (15:56)
--- NOTE | 2024-08-31 16:21 | P.HP_ITS ---
Providers/Chief Complaint 2 Primary Care Provider: Yusuf Rivera DO Chief Complaint: Leg Pain History of Present Illness Yusuf Buck is a 59 year old male has medical history of diabetes mellitus insulin-dependent, aortic stenosis, hypertension, history of ID, CHF, COPD, former drug user, arthritis, BPH, migraines presented to the hospital with complaint of increasing left leg swelling to the point of weeping. He states he saw his primary care doctor 4 to 5 months ago. Has follow-up with cardiology endocrinology podiatry at [facility]. States he is to have chest pain on and off however has seen cardiology and since he has been on nitro he feels better. Denies any chest pain in the recent few weeks. Denies any gross shortness of breath. Main complaint is bilateral lower extremity edema which is worsening to the point that he states he cannot even walk anymore. He does not know the dosage of his medications however says that he is compliant. Somewhat of a poor historian. He does states that he has been having some chills at home however denies a fever. He also has been coughing and expectorating brown sputum. Denies smoking and drinking. And does have significant erythema right lower extremity with weeping present. Has several lesions on bilateral lower extremities to which he states that he has been itching them and those lesions are from that. He is currently on room air. Medications/Allergies Home Medications Medication Instructions Recorded Confirmed Last Taken Type spironolactone 50 mg tablet 50 mg PO DAILY 09/26/19 08/31/24 08/31/24 History tamsulosin 0.4 mg capsule 0.4 mg PO DAILY 09/26/19 08/31/24 08/31/24 History cyclobenzaprine 10 mg tablet 10 mg PO BID 04/09/20 08/31/24 08/31/24 History fluticasone propionate 50 1 spray intranasal DAILY 04/09/20 08/31/24 11/02/22 09:00 History mcg/actuation nasal spray,suspension aspirin 81 mg tablet,delayed 81 mg PO DAILY #90 tabs 10/02/20 08/31/24 08/30/24 Rx release ibuprofen 200 mg capsule 200 mg PO Q6H PRN Pain 12/12/20 08/31/24 11/02/22 22:00 History lidocaine HCl 2 % mucosal solution 1 applic mucous membrane TID 0308/31/24 11/02/22 22:00 History isosorbide mononitrate 120 mg 120 mg PO DAILY 90 days #90 tabs 10/17/21 08/31/24 08/31/24 Rx tablet,extended release 24 hr duloxetine 20 mg capsule,delayed 20 mg PO BID 06/23/22 08/31/24 08/31/24 History release hydrocodone 10 mg-acetaminophen 1 tab PO QID PRN Pain 09/10/22 08/31/24 08/31/24 History 325 mg tablet Diabetic shoes with 3 pairs of #1 ea 01/19/23 08/31/24 Unknown Rx custom molded inserts blood-glucose meter,continuous #1 ea 07/01/23 08/31/24 Unknown Rx (Dexcom G7 Locksmith Helper) blood-glucose sensor (Dexcom G7 #9 ea 07/01/23 08/31/24 Unknown Rx Sensor device) furosemide 40 mg tablet 40 mg PO BID #180 tabs 09/25/23 08/31/24 08/31/24 Rx nitroglycerin 0.4 mg sublingual See Rx Instructions .Route 04/22/24 08/31/24 Unknown Rx tablet .COMPLEX #50 tabs budesonide 160 mcg-glycopyr 9 2 inh inhalation BID #10.7 grams 05/20/24 08/31/24 08/30/24 Rx mcg-formot 4.8 mcg/actuation HFA inhaler (Breztri Aerosphere) potassium chloride 10 mEq 10 meq PO DAILY #90 tabs 05/24/24 08/31/24 08/31/24 Rx tablet,extended release(part/cryst) clopidogrel 75 mg tablet 75 mg PO DAILY #90 tabs 06/10/24 08/31/24 08/31/24 Rx sacubitril 97 mg-valsartan 103 mg 1 tab PO BID #180 tabs 06/10/24 08/31/24 08/31/24 Rx tablet (Entresto) evolocumab 140 mg/mL subcutaneous 140 mg SUBCUT .q 2weeks #2 mL 06/15/24 08/31/24 Unknown Rx pen injector (Amna Cisneros) Novolog FlexPen U-100 Insulin 100 See Rx Instructions .Route 08/02/24 08/31/24 08/30/24 Rx unit/mL (3 mL) subcutaneous .COMPLEX #94.5 mL (insulin aspart U-100) Tresiba FlexTouch U-100 100 See Rx Instructions .Route 08/02/24 08/31/24 08/31/24 Rx unit/mL (3 mL) subcutaneous pen .COMPLEX #90 mL (insulin degludec) carvedilol 25 mg tablet 25 mg PO BID 08/31/24 08/31/24 08/31/24 History dapagliflozin propanediol 10 mg 10 mg PO DAILY 08/31/24 08/31/24 08/31/24 History tablet (Farxiga) ranolazine 500 mg tablet,extended 500 mg PO BID 08/31/24 08/31/24 08/31/24 History release,12 hr Allergies Allergy/AdvReac Type Severity Reaction Status Date / Time No Known Allergies Allergy Verified 08/31/24 13:26 PFSH Acute 2 PFSH: Medical History Chest pain, unspecified History of intravenous drug use in remission COPD (chronic obstructive pulmonary disease) Congestive heart failure Angina pectoris Hematuria, microscopic Acute pharyngitis, unspecified Hx of myocardial infarction Chronic low back pain Benign essential HTN Arthritis Encounter for long-term (current) use of NSAIDs Atypical chest pain Benign prostatic hyperplasia without lower urinary tract symptoms High blood pressure Hypercholesteremia Mixed hyperlipidemia Diabetes mellitus Long-term current use of opiate analgesic Pain management contract signed DDD (degenerative disc disease), lumbar Tobacco use disorder Smokes to calm his nerves Chronic pain of both knees Gastro-esophageal reflux disease without esophagitis Right testicular pain Calculus of kidney Fracture of arm Abdominal pain of unknown etiology Adhesive tendinitis Male erectile dysfunction, unspecified Abscess, dental Migraine Intervertebral disc disorders with radiculopathy, lumbar region Acute bilateral knee pain Acute left-sided low back pain 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 Type 2 diabetes mellitus with diabetic neuropathy, unspecified Patient continues to have neuropathy symptoms Aortic valvar stenosis Nicotine dependence, unspecified, uncomplicated Fracture of wrist Surgical History History of PTCA S/P tendon repair H/O hernia repair H/O umbilical hernia repair H/O knee surgery Family History Mother , Metastasis Cancer Hypertension Stomach ulcer Arthritis Father , Gunshot Hypertension Sister Clotting disorder Grandmother CAD (coronary artery disease) Cancer Stroke Grandfather CAD (coronary artery disease) Cancer Family/Other Suicide Other Heart disease Denies family history of Diabetes Dementia Chronic kidney disease (CKD) Anesthesia complication Bleeding disorder Lung disease Social History Smoking and tobacco/nicotine status: current every day tobacco/nicotine user cigarettes Packs smoked per day: 1.5 Years cigarettes smoked: 35 Alcohol intake: former Year of sobriety/quit date alcohol: 2014 Substance/Drug Use: never Lives independently: Yes Household members: none Marital status: Legally Current occupational status: disabled Do you think of yourself as: Straight/Heterosexual Current gender identity: Male Vitals/I&O/Wt Last Vital Signs Temp 98.0 F 08/31/24 13:18 Pulse 71 08/31/24 14:30 Resp 16 08/31/24 15:56 BP 119/67 08/31/24 14:30 Pulse Ox 100 08/31/24 14:30 O2 Del Method Room Air 08/31/24 13:18 08/31/24 08/31/24 08/31/24 06:59 14:59 22:59 Intake Total 0 / 0 Balance 0 / 0 Weight last 48 hrs Weight 113.398 kg Physical Exam 2 Narrative: General: Alert oriented x3, patient seen laying in bed, obese large body habitus HEENT: Normocephalic, atraumatic, EOMI, breathing room air Cardio: Regular rate rhythm, normal S1-S2, Respiratory: Clear to auscultation bilaterally no wheezes or rhonchi at this time. GI: Abdomen soft, nontender, distended obese rounded, bowel sounds + Behavior: Poor historian Extremities: 4+ bilateral pitting edema up to thighs with numerous excoriations bilateral lower extremities and weeping lesions. See image below Pulses intact with Doppler Data 09/01/24 05:34 09/01/24 05:34 A&P Assessment and plan (1) Benign essential HTN: (2) CHF (congestive heart failure): (3) Ischemic cardiomyopathy: (4) CAD (coronary artery disease): (5) PAD (peripheral artery disease): (6) Hypercholesteremia: (7) GERD (gastroesophageal reflux disease): (8) COPD (chronic obstructive pulmonary disease): Qualifiers: COPD type: emphysema Emphysema type: centrilobular Qualified Code(s): J43.2 - Centrilobular emphysema (9) Obstructive sleep apnea: (10) Bilateral edema of lower extremity: (11) Cellulitis: Plan #Acute on chronic congestive heart failure exacerbation #Diabetes mellitus, insulin-dependent #Cellulitis right lower extremity #Peripheral arterial disease #Dyslipidemia, hypertension #Peripheral neuropathy #GERD #Coronary artery disease status post PCI #History of STEMI, NSTEMI ? Patient did get a 60 IV Lasix in ER. Will place on 60 IV twice daily going forward. ? BNP 27,000. Will check lactic acid ? Check sputum culture Gram stain, patient did complain of expectorating brownish sputum. ? Check blood cultures, check urine culture ? Will place Burciaga catheter for accurate output. Does have a history of BPH. ? Patient on room air at this time. Will add DuoNeb every 6 hours as needed. ? Will check arterial Dopplers bilaterally and venous Dopplers ? Chest x-ray does show peripheral mid to lower left lung hazy opacities compatible with atelectasis or developing infection in the proper clinical setting. ? Will place on vancomycin and Zosyn for possible pneumonia and to cover for lower extremity cellulitis. Will have pharmacy to dose medications. ? Continue patient on home dose Lantus 70 units daily with 30 units at bedtime. Will add moderate dose intensity sliding scale insulin. ? Check hemoglobin A1c ? Will check C-reactive protein, procalcitonin ? Will hold off on septic bolus at this time. Patient does not meet sepsis criteria. He is hemodynamically stable. White count is 13,000. ? He would like to be a full code. -I will hold home Entresto ranolazine at this time. Continue Imdur, aspirin, Plavix, carvedilol. ? Lasix 60 IV twice daily. Add potassium 20 mEq daily. -Patient hyponatremic with sodium 128 most likely secondary to hypervolemia. -Check echocardiogram -EKG without any acute ischemic changes. Does have first-degree AV block. Full code DVT prophylaxis: Heparin subcu twice daily Patient has multiple comorbid conditions and is experiencing lower extremity cellulitis, possible pneumonia, heart failure exacerbation. He will most likely require greater than 72-hour stay for management of above issues. Attestations 2 Medical Necessity Statement*: Greater than 2 midnight stay for management of multiple medical problems at this time. Diagnoses Benign essential HTN I10 CHF (congestive heart failure) I50.9 Ischemic cardiomyopathy I25.5 CAD (coronary artery disease) I25.10 PAD (peripheral artery disease) I73.9 Hypercholesteremia E78.00 GERD (gastroesophageal reflux disease) K21.9 Centrilobular emphysema J43.2 COPD type: emphysema Emphysema type: centrilobular Obstructive sleep apnea G47.33 Bilateral edema of lower extremity R60.0 Cellulitis L03.90
--- NOTE | 2024-08-31 16:26 | USR_ITS ---
PROCEDURE INFORMATION: Exam: US Duplex Lower Extremity Veins, Bilateral Exam date and time: 08/31/2024 5:28 PM Age: 59 years old Clinical indication: Pain; Leg, lower; Bilateral; Additional info: R/O dvt TECHNIQUE: Imaging protocol: Real-time duplex ultrasound of the bilateral extremities with 2-D temple scale, color Doppler flow and spectral waveform analysis including responses to compression and other maneuvers (when performed) with image documentation. Complete exam focused on the lower extremity veins. COMPARISON: US CV arterial duplex [facility] [id number] 08/31/2024 2:12 PM FINDINGS: Right deep veins: The common femoral, femoral, proximal profunda femoral and popliteal veins are patent without evidence of thrombus and demonstrate normal waveforms. Left deep veins: The common femoral, femoral, proximal profunda femoral and popliteal veins are patent without evidence of thrombus and demonstrate normal waveforms. Superficial veins: Bilateral saphenofemoral junctions are patent without thrombus. No evidence of thrombophlebitis. Soft tissues: Soft tissue edema without evidence of fluid collection. US/CV venous duplex [facility] [id number] IMPRESSION: 1. No sonographic evidence of deep venous thrombosis in either lower extremity.
[2024-08-31 17:16] LABS: Procalcitonin 0.93 ng/mL (0-0.5)
[2024-08-31 17:27] LABS: C Reactive Protein 195.1 mg/L (0.0-4.9)
[2024-08-31] MEDS: piperacillin-tazobactam 3.375 GM in sodium chloride 0.9% (plus) 50 ML IV (17:58)
[2024-08-31] MEDS: heparin 5,000 unit/mL INJ 1 mL 5000 UNIT SUBCUT (18:04)
[2024-08-31 18:43] LABS: Lactic Sepsis W/Reflex 2.6 mmol/L (0.5-2.2)
--- NOTE | 2024-08-31 19:28 | PC.NURSE ---
Bladder scan of patient ready greater than 820, 1000ml. Pt states that his bladder does not even fill full and denies need to urinate. Lopez placed and clamped at 1000mls. Waited 20mins and unclamped lopez cath.
[2024-08-31 19:48] LABS: Estmated Average Glucose 160; Hemoglobin A1C 7.2 % (4.0-6.0)
[2024-08-31 20:11] LABS: Reflex Lactate Order REFLEX LACTIC ORDERD
[2024-08-31 20:57] LABS: Glucose Point of Care 134 mg/dL (70-110)
[2024-08-31 21:22] LABS: Lactic Acid level (Lactate) 2.7 mmol/L (0.5-2.2)
[2024-08-31] MEDS: morphine 4 mg/mL SDV 1 mL 2 MG IVP (22:18)
[2024-08-31] MEDS: duloxetine 20 mg Capsule PO (22:27)
[2024-08-31] MEDS: carvedilol 25 mg Tablet PO (22:27)
[2024-08-31] MEDS: ranolazine (12HR) 500 mg Tablet PO (22:27)
[2024-09-01] VITALS (17 sets, daily range): BP systolic 65–112; BP diastolic 48–76; PULSE 59–80; RESP 5–20; TEMP 36.2–36.8; O2SAT 90–95
[2024-09-01] MEDS: nicotine 14 mg Patch 1 PATCH TRANSDERMA (00:24)
[2024-09-01] MEDS: HYDROcodone-acetaminophen 10-325 mg Tablet 1 TAB PO ×3 (00:24→22:07)
[2024-09-01] MEDS: piperacillin-tazobactam 3.375 GM in sodium chloride 0.9% (plus) 50 ML IV ×3 (02:44→17:48)
--- NOTE | 2024-09-01 03:19 | PC.NURSE ---
Patient's blood pressure began trending down slowly over the course of the shift. At 0235 the patient's manual blood pressure was 94/52. Notified Dr. Tavera via [employer] messenger, as the patient had a furosemide 60mg IVP dose ordered for 0200. Dr. Tavera gave orders to hold the dose.
--- NOTE | 2024-09-01 03:45 | PC.NURSE ---
Previous documentation incorrect, IV was inserted in the right forearm.
[2024-09-01] MEDS: heparin 5,000 unit/mL INJ 1 mL 5000 UNIT SUBCUT ×2 (05:30→17:48)
[2024-09-01 05:57] LABS: Hematocrit 44.6 % (37-53); Mean Corpuscular HGB Conc 31.6 g/dL (30-55); Mean Corpuscular Hemoglobin 27.4 pg (27-33); Mean Corpuscular Volume 86.8 fl (82-101); Mean Platelet Volume 11.8 fL (7.4-10.4); Platelet Count 101 10^3/cmm (157-399); Red Blood Count 5.14 10^6/uL (3.85-5.65); Red Cell Distribution Width 16.6 % (12.1-15.1); White Blood Count 13.49 10^3/uL (3.29-11.43)
[2024-09-01 06:21] LABS: Anion Gap 22.9 (5-19); Blood Urea Nitrogen 29 mg/dL (6-20); Calcium 8.4 mg/dL (8.5-10.5); Carbon Dioxide 22 mmol/L (22-29); Chloride 90 mmol/L (98-107); Creatinine Clr Calc Pharmacy 86.9571; Glomerular Filtration Rate 62.4 mL/min (90-130); Glucose 139 mg/dL (65-115); Magnesium 2.2 mg/dL (1.7-2.3); Osmolality Calculated 280 mOsm/kg (285-295); Phosphorus 3.6 mg/dL (2.5-4.5); Potassium 3.9 mmol/L (3.5-5.1); Sodium 131 mmol/L (136-145)
[2024-09-01 06:34] LABS: Glucose Point of Care 159 mg/dL (70-110)
[2024-09-01 06:58] LABS: Slide Review Slide Review Perform
[2024-09-01 06:59] LABS: Absolute Neutrophil 12.3 10^3/cmm (1.4-6.5); Absolute Segmented Neutrophil 9.3 10/cmm (1.6-7.1); Eosinophils 0 %; Lymphocytes 8 %; Lymphocytes Absolute 1.1 10^3/cmm (1.2-3.4); Monocytes Absolute 0.1 10^3/cmm (0.1-0.6); Platelet Estimate Decreased (Normal); Segmented Neutrophils 69 %; Total Cells Counted 100 (0-100)
[2024-09-01 07:00] LABS: Anisocytosis Trace
--- NOTE | 2024-09-01 08:11 | CT_ITS ---
WS: [id number] Noncontrast CT RIGHT lower leg TECHNIQUE: Noncontrast CT RIGHT lower leg with coronal and sagittal reformatted images. CLINICAL INFORMATION: cellulitis, infection COMPARISON: None. DLP: 4038.[address] scans at [facility] use at least one of these dose optimization techniques: automated e xposure control; mA and/or kV adjustment per patient size (includes targeted exams where dose is matc hed to clinical indication); or iterative reconstruction. FINDINGS: Diffuse anasarca throughout the visualized RIGHT lower extremity. Vascular calcification. No evidence of drainable abscess or fluid collection. Mild arthritis RIGHT knee. No significant joint effusion. No evidence of osteomyelitis. Dorsal and plantar calcaneal spurring. CT/CT lower leg RT wo con* [id number] IMPRESSION: 1. Diffuse anasarca throughout the RIGHT lower extremity. 2. No drainable abscess or fluid collection. 3. No evidence of osteomyelitis
--- NOTE | 2024-09-01 08:11 | CT_ITS ---
WS: [id number] CT CHEST, ABDOMEN, AND PELVIS TECHNIQUE: Noncontrast CT of the chest, abdomen, and pelvis with coronal and sagittal reformatted justin ges. CLINICAL INFORMATION: infection COMPARISON: None. DLP: 4038.[address] scans at [facility] use at least one of these dose optimization techniques: automated e xposure control; mA and/or kV adjustment per patient size (includes targeted exams where dose is matc hed to clinical indication); or iterative reconstruction. CT CHEST: Cardiomegaly. Coronary calcification. Normal caliber thoracic aorta. Coronary stent. A few prominent mediastinal lymph nodes likely reactive. No axillary lymphadenopathy. Small RIGHT greater than LEFT p leural effusions with compressive atelectasis in the lung bases. Shallow inspiration. Mild body wall anasarca. Moderate thoracic kyphosis. Perihilar groundglass opacities likely due to pulmonary edema w ith interstitial thickening. CT ABDOMEN AND PELVIS: Diffuse body wall anasarca. Recommend correlation for fluid overload. Mild diffuse fatty filtration o f the liver. Mild hepatomegaly. Normal spleen. Small amount of perihepatic and perisplenic ascites. A ir-fluid level in the stomach. Normal GE junction. Adrenal glands are normal. Normal renal parenchyma l enhancement. No hydronephrosis. Burciaga catheter. Bilateral fat-containing inguinal hernias. Tiny fat -containing umbilical hernia. Sigmoid diverticulosis. No evidence of acute diverticulitis. Mild fecal retention in the RIGHT colon and hepatic flexure. Normal caliber abdominal aorta. Mild aortic calcif ication. Fatty atrophy of the pancreas. CT/[place] [id number] IMPRESSION: 1. Small RIGHT greater than LEFT pleural effusion with compressive atelectasis in the lung bases. Shallow inspiration. 2. Mild pulmonary edema. 3. Diffuse body wall anasarca in the abdomen and pelvis with a small amount of perihepatic and perisplenic ascites. Small volume ascites in the pelvis. 4. Burciaga catheter. 5. Mild hepatomegaly. 6. No other acute findings.
--- NOTE | 2024-09-01 08:11 | CT_ITS ---
WS: [id number] CTA ABDOMINAL AORTA WITH RUNOFF TECHNIQUE: Contrast enhanced CTA of the abdominal aorta with bilateral lower extremity runoff. Multip lanar reformatted images were obtained. MIP reformats were also reviewed. CLINICAL INFORMATION: r/o stenosis COMPARISON: None. DLP: 4038.[address] scans at [facility] use at least one of these dose optimization techniques: automated e xposure control; mA and/or kV adjustment per patient size (includes targeted exams where dose is matc hed to clinical indication); or iterative reconstruction. FINDINGS: Diffuse body wall anasarca more extensive in the bilateral lower extremities. No drainable abscess or fluid collection. Small bilateral pleural effusions with compressive atelectasis in the marifer ng bases. Hepatomegaly with diffuse fatty infiltration of the liver. Small volume perihepatic and per isplenic ascites. Burciaga catheter. Small volume pelvic ascites. Celiac and SMA are patent. Normal caliber abdominal aorta. Moderate irregular aortic atheromatous dis ease in the distal abdominal aorta which remains patent. RIGHT: Mild stenosis of the RIGHT common iliac artery origin which remains patent. Densely calcified internal iliac artery. External iliac artery is patent. Small RIGHT common femoral artery is patent. Deep femoral artery is patent. Superficial femoral artery is occluded at the origin. Reconstitution o f the popliteal artery above the knee in the mid thigh. Segmental flow in the proximal popliteal zander ry. Tiny popliteal artery is patent distally. Poor runoff to the ankle. Dominant posterior tibial art liv. LEFT: Moderate stenosis LEFT common iliac artery. Moderate stenosis at the external iliac artery orig in which is patent. Internal iliac artery is patent. LEFT common femoral artery is patent. Superficia l femoral artery is patent at the origin. Small superficial femoral artery is patent to the adductor hiatus. Popliteal artery is patent. Poor runoff to the ankle with dominant posterior tibial artery. CT/CT angio abd aorta runof [id number] IMPRESSION: 1. RIGHT superficial femoral artery is occluded at the origin. 2. Diminutive but patent iliac artery system and common femoral arteries bilat erally. 3. Poor runoff to the ankles bilaterally with dominance posterior tibial arter ies. 4. Diffuse body wall anasarca. 5. Moderate irregular atheromatous disease distal abdominal aorta.
--- NOTE | 2024-09-01 08:15 | USCV_ITS ---
Yusuf Buck Age: 59 Gender: M : 1965 Exam Date: 09/01/2024 15:03 Ordering Phys: Jazmin Coreas MD Technologist: CT Exam Location: [facility] [place] Indication: BP: 140 / 82 HR: 62 Rhythm: Sinus Technical Quality: Adequate MEASUREMENTS (Male / Female) Normal Values 2D ECHO LVOT Diameter 2.1 cm LV Ejection Fraction MOD 4C 31.8 % LV Ejection Fraction MOD 2C 7.1 % LV Ejection Fraction 2C AL 7.3 % LA Diameter 5.2 cm RA Systolic Volume 4C AL 85.9 ml RA Systolic Volume 4C MOD 81.9 ml LA Sys Volume AL 74.3 cm cubed LA Sys Volume Index AL 30.4 cm cubed/m squared Aorta at Sinotubular Diameter 2.2 cm M-MODE LA Ao Ratio MM 1.5 AV Cusp Separation MM 1.4 cm DOPPLER AV Peak Velocity 215.3 cm/s LVOT Peak Velocity 96.0 cm/s AV Area Cont Eq vti 1.9 cm squared AV Area Cont Eq pk 1.6 cm squared MV Peak Velocity 82.0 cm/s MV Area PHT 3.7 cm squared Mitral E to A Ratio 1.4 TV Peak Velocity 205.0 cm/s TR Peak Velocity 222.0 cm/s TR Peak Gradient 19.7 mmHg TR Mean Velocity 159.0 cm/s TR Mean Gradient 12.0 mmHg TR Velocity Time Integral 61.9 cm TV Peak E Velocity 63.0 cm/s PV Peak Velocity 94.5 cm/s FINDINGS Left Ventricle Diffuse hypokinesis of the left ventricular ejection fraction of 32%. Mild dilated LV cavity.Grade I/IV diastolic dysfunction (abnormal relaxation filling pattern), normal to mildly elevated filling pressures. Right Ventricle Mild diffuse hypokinesis of right ventricle with a slightly diminished ejection fraction Right Atrium Mildly increased right atrial size. Left Atrium Mildly increased left atrial size. Mitral Valve No gross abnormalities noted Aortic Valve Mild aortic valve regurgitation. Mild aortic valve stenosis, mean gradient 11 mmHg, DEMOND 1.9 cm squared. Peak velocity of 2.25 m/s with a peak gradient of 20 and a mean gradient of 12 mmHg. Mild to moderate aortic valve calcification. Tricuspid Valve Mild tricuspid valve regurgitation. Pulmonic Valve Pulmonic valve not well visualized. Pericardium Normal pericardium without effusion. Aorta Normal aortic annulus size. IVC Inferior vena cava not visualized. CONCLUSIONS Diffuse hypokinesis of the left ventricular ejection fraction of 32%. Mild dilated LV cavity. Grade I/IV diastolic dysfunction (abnormal relaxation filling pattern), normal to mildly elevated filling pressures. Mild aortic valve regurgitation. Mild aortic valve stenosis, mean gradient 11 mmHg, DEMOND 1.9 cm squared. Peak velocity of 2.25 m/s with a peak gradient of 20 and a mean gradient of 12 mmHg. Mild to moderate aortic valve calcification. Mild biatrial enlargement. Mild tricuspid valve regurgitation. Estimated pulmonary artery peak systolic pressure within normal limits There is no pericardial effusion. Compared to the study from 06/05/2023, there is a drop in the LV ejection fraction, from 40% to 32% Dr Michelle Rodriguez MD [facility] (Electronically Signed) Final Date: 01 September 2024 17:10 S
[2024-09-01] MEDS: vancomycin 2,000 MG/400 ML PIGGYBACK 200 MG IV ×2 (09:15→20:48)
[2024-09-01] MEDS: pantoprazole DR 40 mg Tablet PO (09:33)
[2024-09-01] MEDS: clopidogrel 75 mg Tablet PO (09:33)
[2024-09-01] MEDS: duloxetine 20 mg Capsule PO ×2 (09:33→17:48)
[2024-09-01] MEDS: potassium chloride ER 20 mEq Tablet PO ×2 (09:33→17:48)
[2024-09-01] MEDS: aspirin 81 mg EC Tablet PO (09:33)
[2024-09-01] MEDS: insulin glargine 100 units/1 mL 70 UNIT SUBCUT (09:34)
[2024-09-01] MEDS: tamsulosin 0.4 mg Capsule PO (09:34)
[2024-09-01] MEDS: insulin lispro 100 unit/1 mL SUBCUT (09:34)
[2024-09-01] MEDS: sodium chloride 0.9% 1,000 ML 75 ML IV (09:55)
[2024-09-01 11:35] LABS: Glucose Point of Care 136 mg/dL (70-110)
--- NOTE | 2024-09-01 11:40 | P.PN_ITS ---
Subjective 2 Subjective: seen this am not feeling better bandemia, left shift arterial duplex shows stenosis, ct abd run off ordered. lactic acid 2.7 over night Vitals/I&O/Wt Last Vital Signs Temp 97.5 F L 09/01/24 08:03 Pulse 80 09/01/24 11:13 Resp 18 09/01/24 11:13 BP 97/58 09/01/24 08:03 Pulse Ox 90 09/01/24 11:13 O2 Del Method Room Air 09/01/24 11:13 FiO2 21 08/31/24 19:37 08/31/24 09/01/24 09/01/24 22:59 06:59 14:59 Intake Total 50 / 50 880 / 930 530 / 530 Output Total 1200 / 1200 450 / 1650 Balance -1150 / -1150 430 / -720 530 / 530 Weight last 48 hrs Weight 127.148 kg Weight 124.42 kg Weight 113.398 kg Physical Exam 2 Narrative: General: Alert oriented x3, patient seen laying in bed, obese large body habitus HEENT: Normocephalic, atraumatic, EOMI, breathing room air Cardio: Regular rate rhythm, normal S1-S2, Respiratory: Clear to auscultation bilaterally no wheezes or rhonchi at this time. GI: Abdomen soft, nontender, distended obese rounded, bowel sounds + Behavior: Poor historian Extremities: 4+ bilateral pitting edema up to thighs with numerous excoriations bilateral lower extremities and weeping lesions. Urinary Catheter Management: Burciaga: Cath Placed During This Visit: yes Reason for Continuing Indwelling Catheter: Acute Urinary Retention or Obstruction Urinary Catheter Date of Insertion: 08/31/24 Urinary Catheter Time of Insertion: 19:00 Data 09/01/24 05:34 09/01/24 05:34 Micro: Microbiology 08/31/24 17:50 Blood Culture - Preliminary Blood SPECIMEN COLLECTED 08/31/24 17:54 Blood Culture - Preliminary Blood SPECIMEN COLLECTED A&P Assessment and plan (1) Benign essential HTN: (2) CHF (congestive heart failure): (3) Ischemic cardiomyopathy: (4) CAD (coronary artery disease): (5) PAD (peripheral artery disease): (6) Hypercholesteremia: (7) GERD (gastroesophageal reflux disease): (8) COPD (chronic obstructive pulmonary disease): Qualifiers: COPD type: emphysema Emphysema type: centrilobular Qualified Code(s): J43.2 - Centrilobular emphysema (9) Obstructive sleep apnea: (10) Bilateral edema of lower extremity: (11) Cellulitis: Plan #Acute on chronic congestive systolic heart failure exacerbation #Diabetes mellitus, insulin-dependent #Cellulitis right lower extremity #Peripheral arterial disease #Dyslipidemia, hypertension #Peripheral neuropathy #GERD #Coronary artery disease status post PCI #History of STEMI, NSTEMI ? Patient did get a 60 IV Lasix in ER. Will place on 60 IV twice daily going forward. ? BNP 27,000. Will check lactic acid ? Check sputum culture Gram stain, patient did complain of expectorating brownish sputum. ? Check blood cultures, check urine culture ? Will place Burciaga catheter for accurate output. Does have a history of BPH. ? Patient on room air at this time. Will add DuoNeb every 6 hours as needed. ? Will check arterial Dopplers bilaterally and venous Dopplers ? Chest x-ray does show peripheral mid to lower left lung hazy opacities compatible with atelectasis or developing infection in the proper clinical setting. ? Will place on vancomycin and Zosyn for possible pneumonia and to cover for lower extremity cellulitis. Will have pharmacy to dose medications. ? Continue patient on home dose Lantus 70 units daily with 30 units at bedtime. Will add moderate dose intensity sliding scale insulin. ? Check hemoglobin A1c ? Will check C-reactive protein, procalcitonin ? Will hold off on septic bolus at this time. Patient does not meet sepsis criteria. He is hemodynamically stable. White count is 13,000. ? He would like to be a full code. -I will hold home Entresto ranolazine at this time. Continue Imdur, aspirin, Plavix, carvedilol. ? Lasix 60 IV twice daily. Add potassium 20 mEq daily. -Patient hyponatremic with sodium 128 most likely secondary to hypervolemia. -Check echocardiogram -EKG without any acute ischemic changes. Does have first-degree AV block. Full code DVT prophylaxis: Heparin subcu twice daily Patient has multiple comorbid conditions and is experiencing lower extremity cellulitis, possible pneumonia, heart failure exacerbation. He will most likely require greater than 72-hour stay for management of above issues. 09/01/2024 - arterial dopplers Abnormal arterial waveforms in both lower extremities suggesting hemodynamically significant stenoses without total occlusion. Correlation with CT angiography and vascular evaluation is recommended. - No sonographic evidence of deep venous thrombosis in either lower extremity. CXR shows: Peripheral mid to lower left lung hazy opacities compatible with atelectasis or developing infection in the proper clinical setting. - sodium 131, most likely 2/2 to hypervolemia - cr 1.2 today lactic acid 2.7. bandemia present. - sepsis 2/2 to pna, vs le cellulitis - place on ns @ 75 cc/hr gentle fluid hydration. hold lasix for now - check ct chest abd pelvis, right leg, abd aorta run-off - cardiology consult. will discuss regarding dobutamine gtt? - hold entresto, hold ranolzaine. - bp soft, reduce imdur to 60 daily - cut down coreg to 6.25 bid - check echo, pending. - lactic acid possibly elevated due to worsening heart failure, vs infection. pt may require icu transfer for dobutamine gtt and lasix. Pt did get lasix 60 iv 3 doses since admission, and did not have adequate urine output. last echo shows EF 40% 2022 Attestations 2 Medical Necessity Statement*: Greater than 2 midnight stay for management of multiple medical problems at this time. Diagnoses Benign essential HTN I10 CHF (congestive heart failure) I50.9 Ischemic cardiomyopathy I25.5 CAD (coronary artery disease) I25.10 PAD (peripheral artery disease) I73.9 Hypercholesteremia E78.00 GERD (gastroesophageal reflux disease) K21.9 Centrilobular emphysema J43.2 COPD type: emphysema Emphysema type: centrilobular Obstructive sleep apnea G47.33 Bilateral edema of lower extremity R60.0 Cellulitis L03.90
--- NOTE | 2024-09-01 12:53 | PM.CONSULT ---
Providers/Reason For Consult Consulting Physician/Specialty*: HIPOLITO Rodriguez MD/cardiology Reason for Consult*: Patient with congestive heart failure/atherosclerotic heart disease/bilateral leg edema Requesting Physician: Dr. Croeas Attending Physician: Jazmin Coreas MD Primary Care Provider: Yusuf Rivera DO History of Present Illness History of Present Illness Yusuf Buck is a 59 year old male with a history of atherosclerotic heart disease, ischemic cardiomyopathy, type 2 diabetes and multiple other medical problems, was having increasing swelling of the lower extremities over the last 3 months. Approximately 8 weeks ago, he went to [place] where he had some altercations with his nephew and he got incarcerated for a month or so. The leg swelling started getting worse in the half-way. According the patient, since it was not an emergency, he was not taken to the hospital. He did not have any chest pain. No fever, chills or cough. He started developing blisters of both legs soon after he came out of the incarceration. 2 weeks ago, he had couple of days of low-grade fever?. He did not get any medical attention at that time. The blisters of the lower extremities started bursting, causing ulcerations. He denies abdominal pain or dysuria. According to him, he has been taking his usual medications. He denies any headache or blurring of vision. No chest pain or palpitations. Patient is known to have orthostatic hypotension, diabetic neuropathy, carotid artery disease, essential benign hypertension, obstructive sleep apnea and ongoing smoking abuse. Denies any alcohol abuse. No other specific complaints at this time. Review of Systems Narrative: CONSTITUTIONAL: No fever or chills.? Low-grade fever 2 weeks ago EYES: No blurring of vision or other visual disturbances lately. ENT: No hoarseness of voice, auditory disturbances or sore throat. CARDIOVASCULAR: As mentioned above. RESPIRATORY: No significant cough. GASTROINTESTINAL: No hematemesis or melena. GENITOURINARY: No dysuria or hematuria. INTEGUMENTARY: No skin rashes or history of skin cancer. NEURO: No transient ischemic attacks or amaurosis. PSYCHIATRIC: No history of psychosis or major depression. HEMATOLOGIC: No bleeding disorders or significant anemia. ENDOCRINE: No history of polyuria or polydipsia. MUSCULOSKELETAL: Bilateral lower extremity swelling as mentioned above ALLERGY/IMMUNOLOGY: As mentioned above. Medications/Allergies Home Medications Medication Instructions Recorded Confirmed Last Taken Type spironolactone 50 mg tablet 50 mg PO DAILY 09/26/19 08/31/24 08/31/24 History tamsulosin 0.4 mg capsule 0.4 mg PO DAILY 09/26/19 08/31/24 08/31/24 History cyclobenzaprine 10 mg tablet 10 mg PO BID 04/09/20 08/31/24 08/31/24 History fluticasone propionate 50 1 spray intranasal DAILY 04/09/20 08/31/24 11/02/22 09:00 History mcg/actuation nasal spray,suspension aspirin 81 mg tablet,delayed 81 mg PO DAILY #90 tabs 10/02/20 08/31/24 08/30/24 Rx release ibuprofen 200 mg capsule 200 mg PO Q6H PRN Pain 12/12/20 08/31/24 11/02/22 22:00 History lidocaine HCl 2 % mucosal solution 1 applic mucous membrane TID 12/12/20 08/31/24 11/02/22 22:00 History isosorbide mononitrate 120 mg 120 mg PO DAILY 90 days #90 tabs 10/17/21 08/31/24 08/31/24 Rx tablet,extended release 24 hr duloxetine 20 mg capsule,delayed 20 mg PO BID 06/23/22 08/31/24 08/31/24 History release hydrocodone 10 mg-acetaminophen 1 tab PO QID PRN Pain 09/10/22 08/31/24 08/31/24 History 325 mg tablet Diabetic shoes with 3 pairs of #1 ea 01/19/23 08/31/24 Unknown Rx custom molded inserts blood-glucose meter,continuous #1 ea 07/01/23 08/31/24 Unknown Rx (Dexcom G7 [employer]) blood-glucose sensor (Dexcom G7 #9 ea 07/01/23 08/31/24 Unknown Rx Sensor device) furosemide 40 mg tablet 40 mg PO BID #180 tabs 09/25/23 08/31/24 08/31/24 Rx nitroglycerin 0.4 mg sublingual See Rx Instructions .Route 04/22/24 08/31/24 Unknown Rx tablet .COMPLEX #50 tabs budesonide 160 mcg-glycopyr 9 2 inh inhalation BID #10.7 grams 05/20/24 08/31/24 08/30/24 Rx mcg-formot 4.8 mcg/actuation HFA inhaler (Breztri Aerosphere) potassium chloride 10 mEq 10 meq PO DAILY #90 tabs 05/24/24 08/31/24 08/31/24 Rx tablet,extended release(part/cryst) clopidogrel 75 mg tablet 75 mg PO DAILY #90 tabs 06/10/24 08/31/24 08/31/24 Rx sacubitril 97 mg-valsartan 103 mg 1 tab PO BID #180 tabs 06/10/24 08/31/24 08/31/24 Rx tablet (Entresto) evolocumab 140 mg/mL subcutaneous 140 mg SUBCUT .q 2weeks #2 mL 06/15/24 08/31/24 Unknown Rx pen injector (Amna Cisneros) Novolog FlexPen U-100 Insulin 100 See Rx Instructions .Route 08/02/24 08/31/24 08/30/24 Rx unit/mL (3 mL) subcutaneous .COMPLEX #94.5 mL (insulin aspart U-100) Tresiba FlexTouch U-100 100 See Rx Instructions .Route 08/02/24 08/31/24 08/31/24 Rx unit/mL (3 mL) subcutaneous pen .COMPLEX #90 mL (insulin degludec) carvedilol 25 mg tablet 25 mg PO BID 08/31/24 08/31/24 08/31/24 History dapagliflozin propanediol 10 mg 10 mg PO DAILY 08/31/24 08/31/24 08/31/24 History tablet (Farxiga) ranolazine 500 mg tablet,extended 500 mg PO BID 08/31/24 08/31/24 08/31/24 History release,12 hr Allergies Allergy/AdvReac Type Severity Reaction Status Date / Time No Known Allergies Allergy Verified 08/31/24 13:26 Current Medications Generic Name Dose Route Start Last Admin Trade Name Freq PRN Reason Stop Dose Admin Hydrocodone Bitart/Acetaminophen 1 tab 08/31/24 19:53 09/01/24 09:33 Hydrocodone-Acetaminophen 10-325 Mg Tablet PO 1 tab QID PRN Administration Pain Aspirin 81 mg 09/01/24 09:00 09/01/24 09:33 Aspirin 81 Mg Ec Tablet PO 81 mg DAILY LAURO Administration Clopidogrel Bisulfate 75 mg 09/01/24 09:00 09/01/24 09:33 Clopidogrel 75 Mg Tablet PO 75 mg DAILY LAURO Administration Duloxetine HCl 20 mg 08/31/24 19:53 09/01/24 09:33 Duloxetine 20 Mg Capsule PO 20 mg BID LAURO Administration Furosemide 60 mg 09/01/24 02:00 09/01/24 03:19 Furosemide 10 Mg/Ml Sdv 10ml IVP Not Given Q12H [facility] Heparin Sodium (Porcine) 5,000 unit 08/31/24 17:00 09/01/24 05:30 Heparin 5,000 Unit/Ml Inj 1 Ml SUBCUT 5,000 unit Q12H LAURO Administration Piperacillin Sod/Tazobactam 50 mls @ 12.5 mls/hr 09/01/24 02:00 09/01/24 10:00 Sod 3.375 gm/ Sodium Chloride IV 12.5 mls/hr Q8H LAURO Administration Vancomycin HCl 2,000 mg in 400 mls @ 200 mls/hr 09/01/24 08:45 09/01/24 09:15 Vancocin IV 200 mls/hr Q12H LAURO Administration Insulin Glargine 70 unit 09/01/24 09:00 09/01/24 09:34 Insulin Glargine 100 Units/1 Ml SUBCUT 70 unit DAILY [facility] Administration Insulin Human Lispro 0 unit 08/31/24 19:53 09/01/24 12:32 Insulin Lispro 100 Unit/1 Ml SUBCUT Not Given WM&BEDTIME [facility] Protocol Morphine Sulfate 2 mg 08/31/24 16:26 08/31/24 22:18 Morphine 4 Mg/Ml Sdv 1 Ml IVP 2 mg Q4H PRN Administration SEVERE PAIN Nicotine 1 patch 09/01/24 00:15 09/01/24 00:24 Nicotine 14 Mg Patch TRANSDERMA 1 patch DAILY [facility] Administration Pantoprazole Sodium 40 mg 09/01/24 09:00 09/01/24 09:[address] 40 Mg Tablet PO 40 mg DAILY LAURO Administration Potassium Chloride 20 meq 09/01/24 09:00 09/01/24 09:33 Potassium Chloride Er 20 Meq Tablet PO 20 meq DAILY LAURO Administration Ranolazine 500 mg 08/31/24 19:53 08/31/24 22:27 Ranolazine (12hr) 500 Mg Tablet PO 500 mg BID LAURO Administration Tamsulosin HCl 0.4 mg 09/01/24 09:00 09/01/24 09:34 Tamsulosin 0.4 Mg Capsule PO 0.4 mg DAILY LAURO Administration PFSH Acute PFSH: Medical History Chest pain, unspecified History of intravenous drug use in remission COPD (chronic obstructive pulmonary disease) Congestive heart failure Angina pectoris Hematuria, microscopic Acute pharyngitis, unspecified Hx of myocardial infarction Chronic low back pain Benign essential HTN Arthritis Encounter for long-term (current) use of NSAIDs Atypical chest pain Benign prostatic hyperplasia without lower urinary tract symptoms High blood pressure Hypercholesteremia Mixed hyperlipidemia Diabetes mellitus Long-term current use of opiate analgesic Pain management contract signed DDD (degenerative disc disease), lumbar Tobacco use disorder Smokes to calm his nerves Chronic pain of both knees Gastro-esophageal reflux disease without esophagitis Right testicular pain Calculus of kidney Fracture of arm Abdominal pain of unknown etiology Adhesive tendinitis Male erectile dysfunction, unspecified Abscess, dental Migraine Intervertebral disc disorders with radiculopathy, lumbar region Acute bilateral knee pain Acute left-sided low back pain [facility] (current[facility] drug therapy Type 2 diabetes mellitus with diabetic neuropathy, unspecified Patient continues to have neuropathy symptoms Aortic valvar stenosis Nicotine dependence, unspecified, uncomplicated Fracture of wrist Surgical History History of PTCA S/P tendon repair H/O hernia repair H/O umbilical hernia repair H/O knee surgery Family History Mother , Metastasis Cancer Hypertension Stomach ulcer Arthritis Father , Gunshot Hypertension Sister Clotting disorder Grandmother CAD (coronary artery disease) Cancer Stroke Grandfather CAD (coronary artery disease) Cancer Family/Other Suicide Other Heart disease Denies family history of Diabetes Dementia Chronic kidney disease (CKD) Anesthesia complication Bleeding disorder Lung disease Social History Smoking and tobacco/nicotine status: current every day tobacco/nicotine user cigarettes Packs smoked per day: 1.5 Years cigarettes smoked: 35 Alcohol intake: former Year of sobriety/quit date alcohol: 2014 Substance/Drug Use: never Lives independently: Yes Household members: none Marital status: Legally Current occupational status: disabled Do you think of yourself as: Straight/Heterosexual Current gender identity: Male Vitals/I&O/Wt Last Vital Signs Temp 98.0 F 09/01/24 11:57 Pulse 68 09/01/24 11:57 Resp 20 H 09/01/24 11:57 BP 96/59 09/01/24 11:57 Pulse Ox 93 09/01/24 11:57 O2 Del Method Room Air 09/01/24 11:57 FiO2 21 08/31/24 19:37 08/31/24 09/01/24 09/01/24 22:59 06:59 14:59 Intake Total 50 / 50 880 / 930 530 / 530 Output Total 1200 / 1200 450 / 1650 Balance -1150 / -1150 430 / -720 530 / 530 Weight last 48 hrs Weight 280 lb 5 oz Weight 274 lb 4.8 oz Weight 250 lb Physical Exam Narrative: GENERAL: The patient is alert and oriented times three. Not in any acute distress. HEENT: No significant pallor, icterus or lymphadenopathy.Oral cavity: There are no mucous membrane lesions. NECK: Trachea appears to be central. No masses noted. No JVD or thyromegaly appreciated. RESPIRATORY: Chest is symmetrical. No intercostals muscle retraction or any accessory muscle activation. There is no chest wall tenderness. Breath sounds are heard bilaterally. No rales or rhonchi heard. No evidence of any consolidation. BREASTS: Deferred. HEART: The heart sounds are normal. No S3 or S4. Short systolic murmur at the lower sternal border. No diastolic murmurs.. No pericardial rub ABDOMEN: No vessel pulsations or distention. No tenderness. No organomegaly appreciated. Bowel sounds are normally heard. : Deferred. RECTAL: Deferred. LYMPHATIC: No lymphadenopathy noted in the neck. EXTREMITIES: 3+ pitting edema both lower extremities. No cyanosis. Extensive ulceration of the blisters bilaterally. There is discharge with some diffuse redness. Some eschars under the toes of the right foot MUSCULOSKELETAL: No acute joint deformities or swelling SKIN: There are no significant rashes or ecchymosis NEUROPSYCHIATRIC: The patient is alert and oriented x3. Appears to be in a good mood. No tremors or rigidity noted. Urinary Catheter Management: Burciaga: Cath Placed During This Visit: yes Reason for Continuing Indwelling Catheter: Acute Urinary Retention or Obstruction Urinary Catheter Date of Insertion: 08/31/24 Urinary Catheter Time of Insertion: 19:00 Data 09/02/24 05:51 09/02/24 05:51 Other Labs: Laboratory Last Values WBC 13.49 10^3/uL (3.29-11.43) H 09/01/24 05:34 RBC 5.14 10^6/uL (3.85-5.65) 09/01/24 05:34 Hgb 14.10 g/dL (11.27-16.99) 09/01/24 05:34 Hct 44.6 % (37-53) 09/01/24 05:34 MCV 86.8 fl (82-101) 09/01/24 05:34 MCH 27.4 pg (27-33) 09/01/24 05:34 MCHC 31.6 g/dL (30-55) 09/01/24 05:34 RDW 16.6 % (12.1-15.1) H 09/01/24 05:34 Plt Count 101 10^3/cmm (157-399) L 09/01/24 05:34 MPV 11.8 fL (7.4-10.4) H 09/01/24 05:34 Neut % (Auto) 85.2 % 08/31/24 13:30 Lymph % (Auto) Not Reportable 09/01/24 05:34 Grant % (Auto) Not Reportable 09/01/24 05:34 Eos % (Auto) 0.0 % 08/31/24 13:30 Baso % (Auto) 0.4 % 08/31/24 13:30 Neut # (Auto) 11.90 10^3/uL (1.8-7.7) H 08/31/24 13:30 Lymph # (Auto) Not Reportable 09/01/24 05:34 Grant # (Auto) Not Reportable 09/01/24 05:34 Eos # (Auto) 0.0 10^3/uL (0.0-0.8) 08/31/24 13:30 Baso # (Auto) 0.1 10^3/uL (0.0-0.1) 08/31/24 13:30 Nucleated RBC % (auto) 0 % 08/31/24 13:30 Total Counted 100 (0-100) 09/01/24 05:34 Atypical Lymphs % 0.0 % (0-5) 09/01/24 05:34 Absolute Neutrophils 12.3 10^3/cmm (1.4-6.5) H 09/01/24 05:34 Segmented Neutrophils 69 % 09/01/24 05:34 Band Neutrophils 22.0 % 09/01/24 05:34 Absolute Lymphocytes 1.1 10^3/cmm (1.2-3.4) L 09/01/24 05:34 Lymphocytes (Manual) 8 % 09/01/24 05:34 Monocytes (Manual) 1.0 % 09/01/24 05:34 Absolute Monocytes 0.1 10^3/cmm (0.1-0.6) 09/01/24 05:34 Eosinophils (Manual) 0 % 09/01/24 05:34 Absolute Eosinophils 0.0 10^3/cmm (0.0-0.7) 09/01/24 05:34 Basophils (Manual) 0.0 % 09/01/24 05:34 Absolute Basophils 0.0 10^3/cmm (0.0-0.2) 09/01/24 05:34 Nucleated RBCs # 0.0 /100WBC 08/31/24 13:30 Platelet Estimate Decreased (Normal) 09/01/24 05:34 Anisocytosis Trace 09/01/24 05:34 PT 17.00 SECONDS (12.1-14.9) H 08/31/24 13:30 INR 1.33 (0.8-1.2) H 08/31/24 13:30 Sodium 131 mmol/L (136-145) L 09/01/24 05:34 Potassium 3.9 mmol/L (3.5-5.1) 09/01/24 05:34 Chloride 90 mmol/L (98-107) L 09/01/24 05:34 Carbon Dioxide 22 mmol/L (22-29) 09/01/24 05:34 Anion Gap 22.9 (5-19) H 09/01/24 05:34 BUN 29 mg/dL (6-20) H 09/01/24 05:34 Creatinine 1.2 mg/dL (0.7-1.2) 09/01/24 05:34 GFR Calculation 62.4 mL/min (90-130) L 09/01/24 05:34 Glucose 139 mg/dL (65-115) H 09/01/24 05:34 POC Glucose 136 mg/dL (70-110) H 09/01/24 11:19 Estimat Average Glucose 160 08/31/24 13:30 Hemoglobin A1c 7.2 % (4.0-6.0) H 08/31/24 13:30 Calculated Osmolality 280 mOsm/kg (285-295) L 09/01/24 05:34 Lactic Acid 2.6 mmol/L (0.5-2.2) H 08/31/24 18:03 Lactic Acid (Sepsis) 2.7 mmol/L (0.5-2.2) H 08/31/24 21:00 Calcium 8.4 mg/dL (8.5-10.5) L 09/01/24 05:34 Phosphorus 3.6 mg/dL (2.5-4.5) 09/01/24 05:34 Magnesium 2.2 mg/dL (1.7-2.3) 09/01/24 05:34 Total Bilirubin 2.0 mg/dL (0.15-1.2) H 08/31/24 13:30 AST 18 U/L (0-40) 08/31/24 13:30 ALT 16 U/L (0-41) 08/31/24 13:30 Alkaline Phosphatase 137 U/L (40-130) H 08/31/24 13:30 C-Reactive Protein 195.1 mg/L (0.0-4.9) H 08/31/24 13:30 NT-Pro-B Natriuret Pep 08767 pg/mL (0-125) H 08/31/24 13:30 Total Protein 5.5 g/dL (6.6-8.7) L 08/31/24 13:30 Albumin 3.0 g/dL (3.5-5.2) L 08/31/24 13:30 Globulin 2.5 g/dL (1.3-4.6) 08/31/24 13:30 Procalcitonin 0.93 ng/mL (0-0.5) H 08/31/24 13:30 Micro: Microbiology 08/31/24 17:50 Blood Culture - Preliminary Blood SPECIMEN COLLECTED 12/04/24 17:54 Blood Culture - Preliminary Blood SPECIMEN COLLECTED Other data: CTA of the abdomen with runoff 1. RIGHT superficial femoral artery is occluded at the origin. 2. Diminutive but patent iliac artery system and common femoral arteries bilaterally. 3. Poor runoff to the ankles bilaterally with dominance posterior tibial arteries. 4. Diffuse body wall anasarca. 5. Moderate irregular atheromatous disease distal abdominal aorta. Lower extremity arterial Doppler examination from today 1. Abnormal arterial waveforms in both lower extremities suggesting hemodynamically significant stenoses without total occlusion. Correlation with CT angiography and vascular evaluation is recommended. CT of the chest , abdomen and pelvis 1. Small RIGHT greater than LEFT pleural effusion with compressive atelectasis in the lung bases. Shallow inspiration. 2. Mild pulmonary edema. 3. Diffuse body wall anasarca in the abdomen and pelvis with a small amount of perihepatic and perisplenic ascites. Small volume ascites in the pelvis. 4. Burciaga catheter. 5. Mild hepatomegaly. 6. No other acute findings. CT of the right lower leg 1. Diffuse anasarca throughout the RIGHT lower extremity. 2. No drainable abscess or fluid collection. 3. No evidence of osteomyelitis Echocardiogram in May 2023 Moderate hypokinesia of the mid and apical septum, anteroseptum and LV apex . LV ejection fraction around 40% (visual). No gross morphology abnormalities of the valve. There is no pericardial effusion. The left atrium appears to be in the upper limit of normal size. Compared to the study from 02/02/2023, there may not be Cardiac catheterization in October 2022 * Previous LAD stent. Worsening shortness of breath. Pleuritic chest pain on the left. Left ventricular function decreasing by echo and nuclear scanning. Fixed defect by nuclear scanning with small amount of ischemia noted in the distribution of the right coronary artery. Large fixed defect in the distribution of the LAD. Coronary angiography reveals left coronary artery dominance. The left main is normal. The LAD is occluded at the stent. There is minimal collateral flow from the proximal LAD and circumflex as well as the right coronary artery. There is a patent proximal septal branch and a tiny diagonal branch noted proximally. The circumflex contains mild diffuse luminal irregularities. The right coronary artery is a small non-dominant vessel. There is a long 70% stenosis in the proximal portion. There is collateral flow to the LAD.. A&P Assessment and plan (1) Acute on chronic systolic heart failure: Patient may be carefully treated with IV diuresis. (2) Edema, peripheral: This could be multifactorial. Heart failure, cellulitis, possible venous insufficiency, etc. are contributing factors. May be treated with careful IV diuresis. (3) PAD (peripheral artery disease): Patient has extensive peripheral arterial disease. (4) Arterial embolism and thrombosis of lower extremity: Need to consider peripheral angiogram and possible intervention, once the heart failure is properly treated. (5) Lower extremity cellulitis: IV antibiotics as per the primary Qualifiers: Laterality: unspecified laterality Qualified Code(s): L03.119 - Cellulitis of unspecified part of limb (6) Hypotension: Could be multifactorial. LV dysfunction, medications are contributing factor Qualifiers: Hypotension type: other hypotension type Qualified Code(s): I95.89 - Other hypotension Plan Other problems are Acute kidney injury Atherosclerotic heart diseas, clinically seems to be stable COPD Sleep apnea Type 2 diabetes IV Lasix 60 mg every 8 hours x 3 along with the potassium 20 mEq p.o. 3 times daily Spironolactone 25 mg p.o. daily Cut back on the carvedilol to 3.125 mg p.o. twice daily Hold off on the isosorbide mononitrate at this time The urine output will be closely monitored Based on the clinical progress, further recommendations will be made. Thank you for the opportunity to evaluate this patient and make these recommendations Consult Attestations Medical Necessity Statement: Patient requires continued hospital stay for close monitoring and further management Coding Level of Care Code 11627 Diagnoses Acute on chronic systolic heart failure I50.23 Edema, peripheral R60.0 PAD (peripheral artery disease) I73.9 Arterial embolism and thrombosis of lower extremity I74.3 Cellulitis of lower extremity, unspecified laterality L03.119 Laterality: unspecified laterality Other specified hypotension I95.89 Hypotension type: other hypotension type
--- NOTE | 2024-09-01 14:05 | PHA.VACGOAL ---
Vancomycin Goal - Goal Vancomycin Goal:: 15-20 mg/L Vancomycin Indication:: Pneumonia - Therapy Current therapy:: Pip/Tazo Day of therpy:: Day []of [] . Actual body weight (kg): 280 lb 5 oz - Data Labs: WBC 13.49 10^3/uL (3.29-11.43) H 09/01/24 05:34 RBC 5.14 10^6/uL (3.85-5.65) 09/01/24 05:34 Hgb 14.10 g/dL (11.27-16.99) 09/01/24 05:34 Hct 44.6 % (37-53) 09/01/24 05:34 MCV 86.8 fl (82-101) 09/01/24 05:34 MCH 27.4 pg (27-33) 09/01/24 05:34 MCHC 31.6 g/dL (30-55) 09/01/24 05:34 RDW 16.6 % (12.1-15.1) H 09/01/24 05:34 Sodium 131 mmol/L (136-145) L 09/01/24 05:34 Potassium 3.9 mmol/L (3.5-5.1) 09/01/24 05:34 Chloride 90 mmol/L (98-107) L 09/01/24 05:34 Carbon Dioxide 22 mmol/L (22-29) 09/01/24 05:34 Anion Gap 22.9 (5-19) H 09/01/24 05:34 BUN 29 mg/dL (6-20) H 09/01/24 05:34 Creatinine 1.2 mg/dL (0.7-1.2) 09/01/24 05:34 GFR Calculation 62.4 mL/min (90-130) L 09/01/24 05:34 Treatment plan:: new consult Regimen:: 2000 MG Q12H
[2024-09-01 16:06] LABS: Lactic Sepsis W/Reflex 3.8 mmol/L (0.5-2.2)
[2024-09-01 17:34] LABS: Reflex Lactate Order REFLEX LACTIC ORDERD
[2024-09-01] MEDS: carvedilol 6.25 mg Tablet 3.125 MG PO (17:48)
[2024-09-01] MEDS: spironolactone 25 mg Tablet PO (17:48)
[2024-09-01 19:21] LABS: Lactic Acid level (Lactate) 3.4 mmol/L (0.5-2.2)
[2024-09-01] MEDS: norepinephrine 4 MG/250 ML BAG 7.5 MG IV (20:39)
[2024-09-01 21:00] LABS: Glucose Point of Care 113 mg/dL (70-110)
--- NOTE | 2024-09-01 23:08 | PC.NURSE ---
Pts blood pressure still too low to tolerate lasix. Dr Tavera notified, instructed to hold lasix for now.
[2024-09-02] VITALS (52 sets, daily range): BP systolic 86–130; BP diastolic 50–75; PULSE 52–71; RESP 12–20; TEMP 35.9–36.9; O2SAT 87–96; BMI 44.5
[2024-09-02] MEDS: piperacillin-tazobactam 3.375 GM in sodium chloride 0.9% (plus) 50 ML IV ×3 (02:38→17:56)
[2024-09-02] MEDS: norepinephrine 4 MG/250 ML BAG 15 MG IV (03:26)
[2024-09-02 04:51] LABS: Glucose Point of Care 44 mg/dL (70-110)
[2024-09-02 05:08] LABS: Glucose Point of Care 37 mg/dL (70-110)
[2024-09-02 05:08] LABS: Glucose Point of Care 41 mg/dL (70-110)
[2024-09-02] MEDS: heparin 5,000 unit/mL INJ 1 mL 5000 UNIT SUBCUT (05:21)
[2024-09-02] MEDS: FUROsemide 10 mg/mL SDV 10mL 60 MG IVP ×3 (05:21→22:33)
[2024-09-02] MEDS: potassium chloride ER 20 mEq Tablet PO (05:22)
[2024-09-02] MEDS: dextrose 10% 125 ML 750 ML IV (05:23)
[2024-09-02 05:26] LABS: Glucose Point of Care 54 mg/dL (70-110)
[2024-09-02 05:50] LABS: Glucose Point of Care 102 mg/dL (70-110)
[2024-09-02 05:58] LABS: Basophils # 0.1 10^3/uL (0.0-0.1); Basophils % 0.4 %; Eosinophils # 0.1 10^3/uL (0.0-0.8); Eosinophils % 0.2 %; Hematocrit 45.4 % (37-53); Lymphocytes # 1.2 10^3/uL (0.8-4.8); Lymphocytes % 5.8 %; Mean Corpuscular HGB Conc 32.2 g/dL (30-55); Mean Corpuscular Hemoglobin 28.1 pg (27-33); Mean Corpuscular Volume 87.3 fl (82-101); Mean Platelet Volume 12.6 fL (7.4-10.4); Monocytes # 1.2 10^3/uL (0.2-0.9); Monocytes % 5.9 %; Neutrophils # 17.57 10^3/uL (1.8-7.7); Neutrophils % 87.2 %; Nucleated Red Blood Cells % 0 %; Platelet Count 92 10^3/cmm (157-399); Red Cell Distribution Width 16.6 % (12.1-15.1); White Blood Count 20.18 10^3/uL (3.29-11.43)
[2024-09-02 06:15] LABS: Blood Urea Nitrogen 40 mg/dL (6-20); Calcium 8.3 mg/dL (8.5-10.5); Carbon Dioxide 21 mmol/L (22-29); Chloride 92 mmol/L (98-107); Creatinine Clr Calc Pharmacy 74.5347; Glomerular Filtration Rate 52.2 mL/min (90-130); Glucose 82 mg/dL (65-115); Magnesium 2.2 mg/dL (1.7-2.3); Osmolality Calculated 269 mOsm/kg (285-295); Sodium 125 mmol/L (136-145)
[2024-09-02 06:20] LABS: Anion Gap 15.6 (5-19); Potassium 3.6 mmol/L (3.5-5.1)
[2024-09-02] MEDS: ipratropium-albuterol 3 mL Neb INHALATION (08:10)
[2024-09-02] MEDS: vancomycin 2,000 MG/400 ML PIGGYBACK 200 MG IV (08:10)
[2024-09-02 08:17] LABS: Glucose Point of Care 69 mg/dL (70-110)
[2024-09-02] MEDS: nicotine 14 mg Patch 1 PATCH TRANSDERMA (08:48)
[2024-09-02] MEDS: spironolactone 25 mg Tablet PO (08:48)
[2024-09-02] MEDS: aspirin 81 mg EC Tablet PO (08:48)
[2024-09-02] MEDS: duloxetine 20 mg Capsule PO ×2 (08:48→17:55)
[2024-09-02] MEDS: pantoprazole DR 40 mg Tablet PO (08:48)
[2024-09-02] MEDS: clopidogrel 75 mg Tablet PO (08:48)
[2024-09-02] MEDS: tamsulosin 0.4 mg Capsule PO (08:48)
[2024-09-02 08:59] LABS: Glucose Point of Care 85 mg/dL (70-110)
[2024-09-02] MEDS: HYDROcodone-acetaminophen 10-325 mg Tablet 1 TAB PO ×2 (09:26→17:54)
--- NOTE | 2024-09-02 10:28 | P.CONIM_ITS ---
Providers/Reason For Consult 2 Consulting Physician/Specialty*: [facility]/Nephrology Reason for Consult*: RONY Attending Physician: Jazmin Coreas MD Primary Care Provider: Yusuf Rivera DO History of Present Illness History of Present Illness Yusuf Buck is a 59 year old male patient is a 17-year-old male with past medical history of diabetes known aortic stenosis, hypertension, coronary artery disease with CHF COPD presented to the hospital on 08/31/2024 due to progressively worsening bilateral lower extremity edema. Also noted to have significant right lower extremity erythema with possible concern for vascular insufficiency and ischemia and is admitted for further management. Initial vital signs are stable was on room air and creatinine was 1.2 on presentation has elevated BBC count of 13,000 on presentation. Patient was thought to be in CHF exacerbation and was placed on IV diuretics. His echocardiogram has showed ejection fraction of 30%. He had a CT of left lower extremity with contrast that has showed evidence of anasarca but no abscess. Creatinine has gotten worse to 1.4 today. Blood pressures been in the 80s to 90s systolic. Urine output has dropped in the last 24 hours. Review of Systems 2 Narrative: Other review of systems negative Medications/Allergies Home Medications Medication Instructions Recorded Confirmed Last Taken Type spironolactone 50 mg tablet 50 mg PO DAILY 09/26/19 08/31/24 08/31/24 History tamsulosin 0.4 mg capsule 0.4 mg PO DAILY 09/26/19 08/31/24 08/31/24 History cyclobenzaprine 10 mg tablet 10 mg PO BID 04/09/20 08/31/24 08/31/24 History fluticasone propionate 50 1 spray intranasal DAILY 04/09/20 08/31/24 11/02/22 09:00 History mcg/actuation nasal spray,suspension aspirin 81 mg tablet,delayed 81 mg PO DAILY #90 tabs 10/02/20 08/31/24 08/30/24 Rx release ibuprofen 200 mg capsule 200 mg PO Q6H PRN Pain 12/12/20 08/31/24 11/02/22 22:00 History lidocaine HCl 2 % mucosal solution 1 applic mucous membrane TID 12/12/20 08/31/24 11/02/22 22:00 History isosorbide mononitrate 120 mg 120 mg PO DAILY 90 days #90 tabs 10/17/21 08/31/24 08/31/24 Rx tablet,extended release 24 hr duloxetine 20 mg capsule,delayed 20 mg PO BID 06/23/22 08/31/24 08/31/24 History release hydrocodone 10 mg-acetaminophen 1 tab PO QID PRN Pain 09/10/22 08/31/24 08/31/24 History 325 mg tablet Diabetic shoes with 3 pairs of #1 ea 01/19/23 08/31/24 Unknown Rx custom molded inserts blood-glucose meter,continuous #1 ea 07/01/23 08/31/24 Unknown Rx ([employer] 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) blood-glucose sensor (Dexcom G7 #9 ea 07/01/23 08/31/24 Unknown Rx Sensor device) furosemide 40 mg tablet 40 mg PO BID #180 tabs 09/25/23 08/31/24 08/31/24 Rx nitroglycerin 0.4 mg sublingual See Rx Instructions .Route 04/22/24 08/31/24 Unknown Rx tablet .COMPLEX #50 tabs budesonide 160 mcg-glycopyr 9 2 inh inhalation BID #10.7 grams 05/20/24 08/31/24 08/30/24 Rx mcg-formot 4.8 mcg/actuation HFA inhaler (Breztri Aerosphere) potassium chloride 10 mEq 10 meq PO DAILY #90 tabs 05/24/24 08/31/24 08/31/24 Rx tablet,extended release(part/cryst) clopidogrel 75 mg tablet 75 mg PO DAILY #90 tabs 06/10/24 08/31/24 08/31/24 Rx sacubitril 97 mg-valsartan 103 mg 1 tab PO BID #180 tabs 06/10/24 08/31/24 08/31/24 Rx tablet (Entresto) evolocumab 140 mg/mL subcutaneous 140 mg SUBCUT .q 2weeks #2 mL 06/15/24 08/31/24 Unknown Rx pen injector (Amna Cisneros) Novolog FlexPen U-100 Insulin 100 See Rx Instructions .Route 08/02/24 08/31/24 08/30/24 Rx unit/mL (3 mL) subcutaneous .COMPLEX #94.5 mL (insulin aspart U-100) Tresiba FlexTouch U-100 100 See Rx Instructions .Route 08/02/24 08/31/24 08/31/24 Rx unit/mL (3 mL) subcutaneous pen .COMPLEX #90 mL (insulin degludec) carvedilol 25 mg tablet 25 mg PO BID 08/31/24 08/31/24 08/31/24 History dapagliflozin propanediol 10 mg 10 mg PO DAILY 08/31/24 08/31/24 08/31/24 History tablet (Farxiga) ranolazine 500 mg tablet,extended 500 mg PO BID 08/31/24 08/31/24 08/31/24 History release,12 hr Allergies Allergy/AdvReac Type Severity Reaction Status Date / Time No Known Allergies Allergy Verified 08/31/24 13:26 Current Medications Generic Name Dose Route Start Last Admin Trade Name Freq PRN Reason Stop Dose Admin Hydrocodone Bitart/Acetaminophen 1 tab 08/31/24 19:53 09/02/24 09:26 Hydrocodone-Acetaminophen 10-325 Mg Tablet PO 1 tab QID PRN Administration Pain Albuterol/Ipratropium 3 ml 09/01/24 03:09 09/02/24 08:10 Ipratropium-Albuterol 3 Ml Neb INHALATION 3 ml Q6H PRN Administration SHORTNESS OF BREATH Aspirin 81 mg 09/01/24 09:00 09/02/24 08:48 Aspirin 81 Mg Ec Tablet PO 81 mg DAILY LAURO Administration Carvedilol 3.125 mg 09/01/24 18:00 09/02/24 08:38 Carvedilol 6.25 Mg Tablet PO Not Given BID [facility] Clopidogrel Bisulfate 75 mg 09/01/24 09:00 09/02/24 08:48 Clopidogrel 75 Mg Tablet PO 75 mg DAILY LAURO Administration Duloxetine HCl 20 mg 08/31/24 19:53 09/02/24 08:48 Duloxetine 20 Mg Capsule PO 20 mg BID LAURO Administration Heparin Sodium (Porcine) 5,000 unit 08/31/24 17:00 09/02/24 05:21 Heparin 5,000 Unit/Ml Inj 1 Ml SUBCUT 5,000 unit Q12H LAURO Administration Piperacillin Sod/Tazobactam 50 mls @ 12.5 mls/hr 09/01/24 02:00 09/02/24 09:26 Sod 3.375 gm/ Sodium Chloride IV 12.5 mls/hr Q8H LAURO Administration Dextrose 125 mls @ 750 mls/hr 08/31/24 19:53 09/02/24 05:50 D10w IV Infused PRN PRN Infusion Adult Acute Hypoglycemia Nursing Protocol Protocol Vancomycin HCl 2,000 mg in 400 mls @ 200 mls/hr 09/01/24 08:45 09/02/24 08:10 Vancocin IV 200 mls/hr Q12H LAURO Administration Norepinephrine Bitartrate 4 mg in 250 mls @ 0 mls/hr 09/01/24 16:45 09/02/24 05:15 Levophed IV 4 mcg/min .Q0M LAURO 15 mls/hr Titration Protocol Per Protocol Insulin Human Lispro 0 unit 08/31/24 19:53 09/02/24 07:57 Insulin Lispro 100 Unit/1 Ml SUBCUT Not Given WM&BEDTIME LAURO Protocol Morphine Sulfate 2 mg 08/31/24 16:26 08/31/24 22:18 Morphine 4 Mg/Ml Sdv 1 Ml IVP 2 mg Q4H PRN Administration SEVERE PAIN Nicotine 1 patch 09/01/24 00:15 09/02/24 08:48 Nicotine 14 Mg Patch TRANSDERMA 1 patch DAILY LAURO Administration Pantoprazole Sodium 40 mg 09/01/24 09:00 09/02/24 08:[address] 40 Mg Tablet PO 40 mg DAILY LAURO Administration Ranolazine 500 mg 08/31/24 19:53 08/31/24 22:27 Ranolazine (12hr) 500 Mg Tablet PO 500 mg BID LAURO Administration Spironolactone 25 mg 09/01/24 17:10 09/02/24 08:48 Spironolactone 25 Mg Tablet PO 25 mg DAILY LAURO Administration Tamsulosin HCl 0.4 mg 09/01/24 09:00 09/02/24 08:48 Tamsulosin 0.4 Mg Capsule PO 0.4 mg DAILY LAURO Administration PFSH Acute 2 PFSH: Medical History Chest pain, unspecified History of intravenous drug use in remission COPD (chronic obstructive pulmonary disease) Congestive heart failure Angina pectoris Hematuria, microscopic Acute pharyngitis, unspecified Hx of myocardial infarction Chronic low back pain Benign essential HTN Arthritis Encounter for long-term (current) use of NSAIDs Atypical chest pain Benign prostatic hyperplasia without lower urinary tract symptoms High blood pressure Hypercholesteremia Mixed hyperlipidemia Diabetes mellitus Long-term current use of opiate analgesic Pain management contract signed DDD (degenerative disc disease), lumbar Tobacco use disorder Smokes to calm his nerves Chronic pain of both knees Gastro-esophageal reflux disease without esophagitis Right testicular pain Calculus of kidney Fracture of arm Abdominal pain of unknown etiology Adhesive tendinitis Male erectile dysfunction, unspecified Abscess, dental Migraine Intervertebral disc disorders with radiculopathy, lumbar region Acute bilateral knee pain Acute left-sided low back pain Other senior living (current) drug therapy Type 2 diabetes mellitus with diabetic neuropathy, unspecified Patient continues to have neuropathy symptoms Aortic valvar stenosis Nicotine dependence, unspecified, uncomplicated Fracture of wrist Surgical History History of PTCA S/P tendon repair H/O hernia repair H/O umbilical hernia repair H/O knee surgery Family History Mother , Metastasis Cancer Hypertension Stomach ulcer Arthritis Father , Gunshot Hypertension Sister Clotting disorder Grandmother CAD (coronary artery disease) Cancer Stroke Grandfather CAD (coronary artery disease) Cancer Family/Other Suicide Other Heart disease Denies family history of Diabetes Dementia Chronic kidney disease (CKD) Anesthesia complication Bleeding disorder Lung disease Social History Smoking and tobacco/nicotine status: current every day tobacco/nicotine user cigarettes Packs smoked per day: 1.5 Years cigarettes smoked: 35 Alcohol intake: former Year of sobriety/quit date alcohol: 2014 Substance/Drug Use: never Lives independently: Yes Household members: none Marital status: Legally Current occupational status: disabled Do you think of yourself as: Straight/Heterosexual Current gender identity: Male Vitals/I&O/Wt Last Vital Signs Temp 96.7 F L 09/02/24 06:00 Pulse 56 L 09/02/24 08:16 Resp 18 09/02/24 08:11 BP 89/66 09/02/24 07:00 Pulse Ox 94 09/02/24 08:11 O2 Del Method Room Air 09/02/24 08:11 FiO2 21 08/31/24 19:37 09/01/24 09/02/24 09/02/24 22:59 06:59 14:59 Intake Total 712.625 / 2397.625 1213.750 / 3611.375 50 / 50 Output Total 200 / 200 300 / 500 Balance 512.625 / 2197.625 913.750 / 3111.375 50 / 50 Weight last 48 hrs Weight 129 kg Weight 127.148 kg Weight 124.42 kg Weight 113.398 kg Physical Exam 2 Urinary Catheter Management: [place]: Cath Placed During This Visit: yes Reason for Continuing Indwelling Catheter: Accurate Measurement of Urinary Output in Critically Ill Patients Urinary Catheter Date of Insertion: 08/31/24 Urinary Catheter Time of Insertion: 19:00 Data 09/02/24 05:51 09/02/24 05:51 Micro: Microbiology 08/31/24 17:50 Blood Culture - Preliminary Blood NEGATIVE TO DATE 08/31/24 17:54 Blood Culture - Preliminary Blood NEGATIVE TO DATE A&P Assessment and plan (1) RONY (acute kidney injury): 1. Acute kidney injury: Likely from renal hypoperfusion in the setting of low blood pressures and low EF. Also received IV contrast. Agree with dobutamine drip for now and watch renal function, will add midodrine. , if patient gets repeated contrast, there is risk of worsening RONY and may require temporary HD. Continue IV Lasix, will hold Aldactone and potassium tabs temporarily Has anasarca, may require temporary HD if no response to diuretics for volume management 2. CHF: With ejection fraction 30 to 35%, cardiology following, 3. Bilateral lower extremity cellulitis/anasarca, diuretics as above may require temporary HD for volume management 4., Right lower extremity -question ischemia, workup in progress, 5. History of diabetes 6. Metabolic acidosis: Mild, monitor for now, likely from lactic acidosis 7. Hyponatremia: In the setting of anasarca, continue diuretics, will check urine sodium and urine osmolality and also add p.o. fluid restriction to 1200 mL/day. Patient evaluated using audiovisual cart. Time spent 40 minutes. Consult Attestations 2 Medical Necessity Statement: Per medicine team Coding Level of Care Code Acute Code for [facility] Fwd Diagnoses RONY (acute kidney injury) N17.9
--- NOTE | 2024-09-02 11:20 | PM.PN ---
Subjective Subjective: The patient was blood pressure has been dropping into the 80s and 90s. His urine output seems to be declining. He was brought down to the ICU for further management. He also is complaining of pain in the right foot. He also was found to have increasing redness with areas of bluish/purplish discoloration in the right leg. Also seems to have some new bullous lesion in the dorsum of the right leg, just above the ankle. There is yellowish discoloration of the fluid oozing from these blisters Medications: Medication Review Details: Current Medications Acetaminophen (Acetaminophen 325 Mg Tablet) 650 mg PO Q6H PRN PRN Reason: Mild/Mod Pain Or Temp >/= 101 Hydrocodone Bitart/Acetaminophen (Hydrocodone-Acetaminophen 10-325 Mg Tablet) 1 tab PO QID PRN PRN Reason: Pain Last Admin: 09/02/24 09:26 Dose: 1 tab Albuterol/Ipratropium (Ipratropium-Albuterol 3 Ml Neb) 3 ml INHALATION Q6H PRN PRN Reason: SHORTNESS OF BREATH Last Admin: 09/02/24 08:10 Dose: 3 ml Aspirin (Aspirin 81 Mg Ec Tablet) 81 mg PO DAILY [facility] Last Admin: 09/02/24 08:48 Dose: 81 mg Carvedilol (Carvedilol 6.25 Mg Tablet) 3.125 mg PO BID [facility] Last Admin: 09/02/24 08:38 Dose: Not Given Clopidogrel Bisulfate (Clopidogrel 75 Mg Tablet) 75 mg PO DAILY [facility] Last Admin: 09/02/24 08:48 Dose: 75 mg Duloxetine HCl (Duloxetine 20 Mg Capsule) 20 mg PO BID [facility] Last Admin: 09/02/24 08:48 Dose: 20 mg Furosemide (Furosemide 10 Mg/Ml Sdv 10ml) 60 mg IVP Q8H [facility] Glucagon (Glucagon 1 Mg/Ml Kit 1 Ml) 1 mg IM ONCE PRN; Protocol PRN Reason: Adult Acute Hypoglycemia Nursing Prot. Heparin Sodium (Porcine) (Heparin 5,000 Unit/Ml Inj 1 Ml) 5,000 unit SUBCUT Q12H [facility] Last Admin: 09/02/24 05:21 Dose: 5,000 unit Heparin Sodium (Porcine) (Heparin 5,000 Unit/Ml Inj 1 Ml) 0 unit IVP PRN PRN; Protocol PRN Reason: Heparin Weight Based Protocol -Subsequent Bolus Piperacillin Sod/Tazobactam (Sod 3.375 gm/ Sodium Chloride) 50 mls @ 12.5 mls/hr IV Q8H [facility] Last Admin: 09/02/24 09:26 Dose: 12.5 mls/hr Dextrose (D5w) 500 mls @ 0 mls/hr IV ONCE PRN; Protocol PRN Reason: Adult Acute Hypoglycemia Prot Dextrose (D10w) 125 mls @ 750 mls/hr IV PRN PRN; Protocol PRN Reason: Adult Acute Hypoglycemia Nursing Protocol Last Infusion: 09/02/24 05:50 Dose: Infused Dextrose (D10w) 250 mls @ 1,000 mls/hr IV PRN PRN; Protocol PRN Reason: Adult Acute Hypoglycemia Nursing Protocol Vancomycin HCl (Vancocin) 2,000 mg in 400 mls @ 200 mls/hr IV Q12H [facility] Last Admin: 09/02/24 08:10 Dose: 200 mls/hr Norepinephrine Bitartrate (Levophed) 4 mg in 250 mls @ 0 mls/hr IV .Q0M [facility]; Protocol Last Titration: 09/02/24 05:15 Dose: 4 mcg/min, 15 mls/hr Heparin Sodium/Sodium Chloride (Heparin Drip) 25,000 unit in 500 mls @ 0 mls/hr IV CONT [facility]; Protocol Dobutamine HCl/Dextrose (Dobutamine Drip) 500 mg in 250 mls @ 0 mls/hr IV .Q0M [facility]; Protocol Insulin Human Lispro (Insulin Lispro 100 Unit/1 Ml) 0 unit SUBCUT WM&BEDTIME [facility]; Protocol Last Admin: 09/02/24 07:57 Dose: Not Given Isosorbide Mononitrate (Isosorbide Mononitrate Er 60 Mg Tablet) 60 mg PO DAILY [facility] Morphine Sulfate (Morphine 4 Mg/Ml Sdv 1 Ml) 2 mg IVP Q4H PRN PRN Reason: SEVERE PAIN Last Admin: 08/31/24 22:18 Dose: 2 mg Nicotine (Nicotine 14 Mg Patch) 1 patch TRANSDERMA DAILY [facility] Last Admin: 09/02/24 08:48 Dose: 1 patch Ondansetron HCl (Ondansetron 2 Mg/Ml Sdv 2 Ml) 4 mg IVP Q8H PRN PRN Reason: vomiting, or N/V if npo Pantoprazole Sodium (Pantoprazole Dr 40 Mg Tablet) 40 mg PO DAILY [facility] Last Admin: 09/02/24 08:48 Dose: 40 mg Potassium Chloride (Potassium Chloride Er 20 Meq Tablet) 20 meq PO Q24H [facility] Ranolazine (Ranolazine (12hr) 500 Mg Tablet) 500 mg PO BID [facility] Last Admin: 08/31/24 22:27 Dose: 500 mg Spironolactone (Spironolactone 25 Mg Tablet) 25 mg PO DAILY [facility] Last Admin: 09/02/24 08:48 Dose: 25 mg Tamsulosin HCl (Tamsulosin 0.4 Mg Capsule) 0.4 mg PO DAILY [facility] Last Admin: 09/02/24 08:48 Dose: 0.4 mg Vitals/I&O/Wt Last Vital Signs Temp 96.7 F L 09/02/24 06:00 Pulse 56 L 09/02/24 08:16 Resp 18 09/02/24 08:11 BP 89/66 09/02/24 07:00 Pulse Ox 94 09/02/24 08:11 O2 Del Method Room Air 09/02/24 08:11 FiO2 21 08/31/24 19:37 09/01/24 09/02/24 09/02/24 22:59 06:59 14:59 Intake Total 712.625 / 2397.625 1213.750 / 3611.375 50 / 50 Output Total 200 / 200 300 / 500 Balance 512.625 / 2197.625 913.750 / 3111.375 50 / 50 Weight last 48 hrs Weight 284 lb 6.341 oz Weight 280 lb 5 oz Weight 274 lb 4.8 oz Weight 250 lb Physical Exam Narrative: GENERAL: The patient is alert and oriented times three. Not in any acute distress. HEENT: No significant pallor, icterus or lymphadenopathy.Oral cavity: There are no mucous membrane lesions. NECK: Trachea appears to be central. No masses noted. No JVD or thyromegaly appreciated. RESPIRATORY: Chest is symmetrical. No intercostals muscle retraction or any accessory muscle activation. There is no chest wall tenderness. Breath sounds are heard bilaterally. No rales or rhonchi heard. No evidence of any consolidation. BREASTS: Deferred. HEART: The heart sounds are normal. No S3 or S4. Short systolic murmur at the lower sternal border. No diastolic murmurs.. No pericardial rub ABDOMEN: No vessel pulsations or distention. No tenderness. No organomegaly appreciated. Bowel sounds are normally heard. : Deferred. RECTAL: Deferred. LYMPHATIC: No lymphadenopathy noted in the neck. EXTREMITIES: 2-3+ pitting edema both lower extremities, more so on the right side. Extensive ulceration of the blisters on the right side. The left side blister seems to be healing. Extensive areas of purplish/bluish patches in the right leg. Multiple small eschars in the sole of the right foot. The dorsalis pedis and posttibial pulses are absent with the Doppler. Healing blisters in the left lower extremity. MUSCULOSKELETAL: No acute joint deformities or swelling SKIN: There are no significant rashes. Other details as mentioned above NEUROPSYCHIATRIC: The patient is alert and oriented x3. Appears to be in a good mood. No tremors or rigidity noted. Urinary Catheter Management: [place]: Cath Placed During This Visit: yes Reason for Continuing Indwelling Catheter: Accurate Measurement of Urinary Output in Critically Ill Patients Urinary Catheter Date of Insertion: 08/31/24 Urinary Catheter Time of Insertion: 19:00 Data 09/02/24 05:51 09/02/24 05:51 Other Labs: Laboratory Last Values WBC 20.18 10^3/uL (3.29-11.43) H 09/02/24 05:51 RBC 5.20 10^6/uL (3.85-5.65) 09/02/24 05:51 Hgb 14.60 g/dL (11.27-16.99) 09/02/24 05:51 Hct 45.4 % (37-53) 09/02/24 05:51 MCV 87.3 fl (82-101) 09/02/24 05:51 MCH 28.1 pg (27-33) 09/02/24 05:51 MCHC 32.2 g/dL (30-55) 09/02/24 05:51 RDW 16.6 % (12.1-15.1) H 09/02/24 05:51 Plt Count 92 10^3/cmm (157-399) L 09/02/24 05:51 MPV 12.6 fL (7.4-10.4) H 09/02/24 05:51 Neut % (Auto) 87.2 % 09/02/24 05:51 Lymph % (Auto) 5.8 % 09/02/24 05:51 Stearns % (Auto) 5.9 % 09/02/24 05:51 Eos % (Auto) 0.2 % 09/02/24 05:51 Baso % (Auto) 0.4 % 09/02/24 05:51 Neut # (Auto) 17.57 10^3/uL (1.8-7.7) H 09/02/24 05:51 Lymph # (Auto) 1.2 10^3/uL (0.8-4.8) 09/02/24 05:51 [place]s # (Auto) 1.2 10^3/uL (0.2-0.9) H 09/02/24 05:51 Eos # (Auto) 0.1 10^3/uL (0.0-0.8) 09/02/24 05:51 Baso # (Auto) 0.1 10^3/uL (0.0-0.1) 09/02/24 05:51 Nucleated RBC % (auto) 0 % 09/02/24 05:51 Total Counted 100 (0-100) 09/01/24 05:34 Atypical Lymphs % 0.0 % (0-5) 09/01/24 05:34 Absolute Neutrophils 12.3 10^3/cmm (1.4-6.5) H 09/01/24 05:34 Segmented Neutrophils 69 % 09/01/24 05:34 Band Neutrophils 22.0 % 09/01/24 05:34 Absolute Lymphocytes 1.1 10^3/cmm (1.2-3.4) L 09/01/24 05:34 Lymphocytes (Manual) 8 % 09/01/24 05:34 Monocytes (Manual) 1.0 % 09/01/24 05:34 Absolute Monocytes 0.1 10^3/cmm (0.1-0.6) 09/01/24 05:34 Eosinophils (Manual) 0 % 09/01/24 05:34 Absolute Eosinophils 0.0 10^3/cmm (0.0-0.7) 09/01/24 05:34 Basophils (Manual) 0.0 % 09/01/24 05:34 Absolute Basophils 0.0 10^3/cmm (0.0-0.2) 09/01/24 05:34 Nucleated RBCs # 0.0 /100WBC 09/02/24 05:51 Platelet Estimate Decreased (Normal) 09/01/24 05:34 Anisocytosis Trace 09/01/24 05:34 PT 17.00 SECONDS (12.1-14.9) H 08/31/24 13:30 INR 1.33 (0.8-1.2) H 08/31/24 13:30 Sodium 125 mmol/L (136-145) L 09/02/24 05:51 Potassium 3.6 mmol/L (3.5-5.1) 09/02/24 05:51 Chloride 92 mmol/L (98-107) L 09/02/24 05:51 Carbon Dioxide 21 mmol/L (22-29) L 09/02/24 05:51 Anion Gap 15.6 (5-19) 09/02/24 05:51 BUN 40 mg/dL (6-20) H 09/02/24 05:51 Creatinine 1.4 mg/dL (0.7-1.2) H 09/02/24 05:51 GFR Calculation 52.2 mL/min (90-130) L 09/02/24 05:51 Glucose 82 mg/dL (65-115) 09/02/24 05:51 POC Glucose 85 mg/dL (70-110) 09/02/24 08:47 Estimat Average Glucose 160 08/31/24 13:30 Hemoglobin A1c 7.2 % (4.0-6.0) H 08/31/24 13:30 Calculated Osmolality 269 mOsm/kg (285-295) L 09/02/24 05:51 Lactic Acid 3.8 mmol/L (0.5-2.2) H 09/01/24 15:40 Lactic Acid (Sepsis) 3.4 mmol/L (0.5-2.2) H 09/01/24 18:49 Calcium 8.3 mg/dL (8.5-10.5) L 09/02/24 05:51 Phosphorus 3.6 mg/dL (2.5-4.5) 09/01/24 05:34 Magnesium 2.2 mg/dL (1.7-2.3) 09/02/24 05:51 Total Bilirubin 2.0 mg/dL (0.15-1.2) H 08/31/24 13:30 AST 18 U/L (0-40) 08/31/24 13:30 ALT 16 U/L (0-41) 08/31/24 13:30 Alkaline Phosphatase 137 U/L (40-130) H 08/31/24 13:30 C-Reactive Protein 195.1 mg/L (0.0-4.9) H 08/31/24 13:30 NT-Pro-B Natriuret Pep 19151 pg/mL (0-125) H 08/31/24 13:30 Total Protein 5.5 g/dL (6.6-8.7) L 08/31/24 13:30 Albumin 3.0 g/dL (3.5-5.2) L 08/31/24 13:30 Globulin 2.5 g/dL (1.3-4.6) 08/31/24 13:30 Procalcitonin 0.93 ng/mL (0-0.5) H 08/31/24 13:30 Micro: Microbiology 08/31/24 19:08 Urine Culture - Final Urine,Clean Catch 08/31/24 17:50 Blood Culture - Preliminary Blood NEGATIVE TO DATE 08/31/24 17:54 Blood Culture - Preliminary Blood NEGATIVE TO DATE Other data: Echocardiogram from yesterday Diffuse hypokinesis of the left ventricular ejection fraction of 32%. Mild dilated LV cavity. Grade I/IV diastolic dysfunction (abnormal relaxation filling pattern), normal to mildly elevated filling pressures. Mild aortic valve regurgitation. Mild aortic valve stenosis, mean gradient 11 mmHg, DEMOND 1.9 cm squared. Peak velocity of 2.25 m/s with a peak gradient of 20 and a mean gradient of 12 mmHg. Mild to moderate aortic valve calcification. Mild biatrial enlargement. Mild tricuspid valve regurgitation. Estimated pulmonary artery peak systolic pressure within normal limits There is no pericardial effusion. Compared to the study from 06/05/2023, there is a drop in the LV ejection fraction, from 40% to 32% A&P Assessment and plan (1) Critical limb ischemia of right lower extremity: This patient has features of critical limb ischemia of the right lower extremity. Apparently he has been vague about his symptoms. He was mainly complaining of bilateral lower extremity swelling and blisters . On further questioning he admits that he been having pain in both legs but more so on the right for some time. Currently the pain is more in the lower part of the right leg and in the foot, mostly with touch. His clinical features are suggestive of critical limb ischemia. (2) Hypotension: Could be multifactorial. LV dysfunction, possible sepsis are major contributors.. Will start him on IV Dobutrex 5 mics per KG per minute Qualifiers: Hypotension type: other hypotension type Qualified Code(s): I95.89 - Other hypotension (3) Acute on chronic systolic heart failure: The LV ejection fraction was found to be around 32% by echocardiogram from yesterday. Because of the rising BUN, I may hold off on the IV Lasix at this point. In view of his hypotension and the rising BUN/creatinine, I may give him a trial of IV Dobutrex to improve the cardiac output and see the response. (4) Atherosclerotic heart disease of [place] coronary artery without angina pectoris: Patient is known to have atherosclerotic heart disease. Totally occluded left anterior descending artery. Mild disease in the circumflex artery. Moderately severe disease in the right coronary artery which is nondominant, based on the angiogram in 2021. Currently has no chest pain. I may go ahead and do a troponin T to evaluate for any evidence of microinjury. His EKG is unremarkable. Qualifiers: [place] vs. transplanted heart: [place] heart Qualified Code(s): I25.10 - Atherosclerotic heart disease of [place] coronary artery without angina pectoris (5) Edema, peripheral: This could be multifactorial. Heart failure, cellulitis, possible venous insufficiency, etc. are contributing factors. May be treated with careful IV diuresis. Plan Other problems are Acute kidney injury COPD Sleep apnea Type 2 diabetes Ongoing school smoking abuse In view of the critical limb ischemia, the patient may benefit from a peripheral angiogram and possible intervention. A multidisciplinary approach would be more appropriate in view of his complex medical condition-cardiomyopathy, acute renal injury, hypotension, diabetes , cellulitis ,atherosclerotic heart disease, etc. I will be discussing with Dr. Burnham, mold filling operator and will make a final decision afterwards Attestations Medical Necessity Statement*: Patient requires continued hospital stay for close monitoring and further management Coding Level of Care Code 86927 Diagnoses Critical limb ischemia of right lower extremity I70.221 Other specified hypotension I95.89 Hypotension type: other hypotension type Acute on chronic systolic heart failure I50.23 Atherosclerosis of [place] coronary artery of [place] heart without angina pectoris I25.10 [place] vs. transplanted heart: [place] heart Edema, peripheral R60.0
[2024-09-02] MEDS: heparin drip 25,000 UNIT/500 ML PREMIX 36 UNIT IV (11:25)
[2024-09-02] MEDS: DOBUTamine drip 500 MG/250 ML PREMIX 9.68 MG IV (11:29)
--- NOTE | 2024-09-02 11:33 | PC.NURSE ---
Heparin drip started. Loading dose bolus not given per Dr Coreas..... platelets are 92 and he received subq heparin this morning.
[2024-09-02 11:47] LABS: Partial Thromboplastin Time 38.2 SECONDS (23.9-36.7)
[2024-09-02 11:59] LABS: Troponin T (5th) Once 185 ng/L (0-15)
[2024-09-02 12:00] LABS: Glucose Point of Care 118 mg/dL (70-110)
[2024-09-02 12:43] LABS: Glucose Point of Care 123 mg/dL (70-110)
--- NOTE | 2024-09-02 13:01 | XR_ITS ---
WS: [id number] XR chest 1V portable [id number] REASON FOR EXAM: Post PICC insertion FINDINGS: Right arm PICC line placement. Catheter tip is in the distal SVC above the cavoatrial junction. Proper position for use. PICC line position was discussed with the interventional radiology rn over the phone at 1333 hours. Compared to the previous examination of 08/31/2024 development of reticular interstitial densities in both lower lung stevens predominating on the left. XR/XR chest 1V portable [id number] IMPRESSION: PICC line placement as above. Interval developing interstitial lung opacities congestive heart failure versus pneumonitis.
--- NOTE | 2024-09-02 13:04 | P.PN_ITS ---
Subjective 2 Subjective: seen today complains of right leg pain, 800 cc UO, on 60 tid lasix - seen him in presence of cardiology tea m leg was examined no pedal pulses on doppler on right foot leg appears worsened with large blisters and some draining yellowish material redness worsened. Vitals/I&O/Wt Last Vital Signs Temp 96.7 F L 09/02/24 06:00 Pulse 56 L 09/02/24 08:16 Resp 18 09/02/24 08:11 BP 89/66 09/02/24 07:00 Pulse Ox 94 09/02/24 08:11 O2 Del Method Room Air 09/02/24 08:11 FiO2 21 08/31/24 19:37 09/01/24 09/02/24 09/02/24 22:59 06:59 14:59 Intake Total 712.625 / 2397.625 1213.750 / 3611.375 50 / 50 Output Total 200 / 200 300 / 500 Balance 512.625 / 2197.625 913.750 / 3111.375 50 / 50 Weight last 48 hrs Weight 129.727 kg Weight 129 kg Weight 127.148 kg Weight 124.42 kg Weight 113.398 kg Physical Exam 2 Narrative: General: Alert oriented x3, patient seen laying in bed, obese large body habitus HEENT: Normocephalic, atraumatic, EOMI, breathing room air Cardio: Regular rate rhythm, normal S1-S2, Respiratory: Clear to auscultation bilaterally no wheezes or rhonchi at this time. GI: Abdomen soft, nontender, distended obese rounded, bowel sounds + Behavior: Poor historian Extremities: 4+ bilateral pitting edema up to thighs with numerous excoriations bilateral lower extremities and weeping lesions. right pedal pulses not present. weeping legs, blisters present. Urinary Catheter Management: Burciaga: Cath Placed During This Visit: yes Reason for Continuing Indwelling Catheter: Accurate Measurement of Urinary Output in Critically Ill Patients Urinary Catheter Date of Insertion: 08/31/24 Urinary Catheter Time of Insertion: 19:00 Data 09/02/24 05:51 09/02/24 05:51 Micro: Microbiology 08/31/24 19:08 Urine Culture - Final Urine,Clean Catch 08/31/24 17:50 Blood Culture - Preliminary Blood NEGATIVE TO DATE 08/31/24 17:54 Blood Culture - Preliminary Blood NEGATIVE TO DATE A&P Assessment and plan (1) Benign essential HTN: (2) CHF (congestive heart failure): (3) Ischemic cardiomyopathy: (4) CAD (coronary artery disease): (5) PAD (peripheral artery disease): (6) Hypercholesteremia: (7) GERD (gastroesophageal reflux disease): (8) COPD (chronic obstructive pulmonary disease): Qualifiers: COPD type: emphysema Emphysema type: centrilobular Qualified Code(s): J43.2 - Centrilobular emphysema (9) Obstructive sleep apnea: (10) Bilateral edema of lower extremity: (11) Cellulitis: Plan #Acute on chronic congestive systolic heart failure exacerbation #Diabetes mellitus, insulin-dependent #Cellulitis right lower extremity #Peripheral arterial disease #Dyslipidemia, hypertension #Peripheral neuropathy #GERD #Coronary artery disease status post PCI #History of STEMI, NSTEMI ? Patient did get a 60 IV Lasix in ER. Will place on 60 IV twice daily going forward. ? BNP 27,000. Will check lactic acid ? Check sputum culture Gram stain, patient did complain of expectorating brownish sputum. ? Check blood cultures, check urine culture ? Will place Burciaga catheter for accurate output. Does have a history of BPH. ? Patient on room air at this time. Will add DuoNeb every 6 hours as needed. ? Will check arterial Dopplers bilaterally and venous Dopplers ? Chest x-ray does show peripheral mid to lower left lung hazy opacities compatible with atelectasis or developing infection in the proper clinical setting. ? Will place on vancomycin and Zosyn for possible pneumonia and to cover for lower extremity cellulitis. Will have pharmacy to dose medications. ? Continue patient on home dose Lantus 70 units daily with 30 units at bedtime. Will add moderate dose intensity sliding scale insulin. ? Check hemoglobin A1c ? Will check C-reactive protein, procalcitonin ? Will hold off on septic bolus at this time. Patient does not meet sepsis criteria. He is hemodynamically stable. White count is 13,000. ? He would like to be a full code. -I will hold home Entresto ranolazine at this time. Continue Imdur, aspirin, Plavix, carvedilol. ? Lasix 60 IV twice daily. Add potassium 20 mEq daily. -Patient hyponatremic with sodium 128 most likely secondary to hypervolemia. -Check echocardiogram -EKG without any acute ischemic changes. Does have first-degree AV block. Full code DVT prophylaxis: Heparin subcu twice daily Patient has multiple comorbid conditions and is experiencing lower extremity cellulitis, possible pneumonia, heart failure exacerbation. He will most likely require greater than 72-hour stay for management of above issues. 09/01/2024 - arterial dopplers Abnormal arterial waveforms in both lower extremities suggesting hemodynamically significant stenoses without total occlusion. Correlation with CT angiography and vascular evaluation is recommended. - No sonographic evidence of deep venous thrombosis in either lower extremity. CXR shows: Peripheral mid to lower left lung hazy opacities compatible with atelectasis or developing infection in the proper clinical setting. - sodium 131, most likely 2/2 to hypervolemia - cr 1.2 today lactic acid 2.7. bandemia present. - sepsis 2/2 to pna, vs le cellulitis - place on ns @ 75 cc/hr gentle fluid hydration. hold lasix for now - check ct chest abd pelvis, right leg, abd aorta run-off - cardiology consult. will discuss regarding dobutamine gtt? - hold entresto, hold ranolzaine. - bp soft, reduce imdur to 60 daily - cut down coreg to 6.25 bid - check echo, pending. - lactic acid possibly elevated due to worsening heart failure, vs infection. pt may require icu transfer for dobutamine gtt and lasix. Pt did get lasix 60 iv 3 doses since admission, and did not have adequate urine output. last echo shows EF 40% 202209/02/2024 - - arterial dopplers Abnormal arterial waveforms in both lower extremities suggesting hemodynamically significant stenoses without total occlusion. Correlation with CT angiography and vascular evaluation is recommended. - No sonographic evidence of deep venous thrombosis in either lower extremity. CXR shows: Peripheral mid to lower left lung hazy opacities compatible with atelectasis or developing infection in the proper clinical setting. ? Patient has evidence of right lower limb ischemia. Leg has developed worsening blisters, weeping, worsening redness. Initial troponin 185, lactic acid 3.8 yesterday. Repeat lactic acid pending from this morning. ? Sodium worsened to 125, creatinine 1.4. Patient did receive contrast yesterday for CT abdomen runoff. ? CT aorta runoff shows right superficial femoral artery occluded at origin, patent iliac artery system and common femoral arteries bilaterally. Poor runoff to the ankles bilaterally with no evidence of posterior tibial arteries. Diffuse body wall anasarca. ? Will place patient on heparin drip. ? Discussed with cardiology. underground heavy equipment operator will be evaluating patient to make final determination. Patient may need vascular surgery referral. ? Continue Lasix 60 IV every 8 hours ? Placed on dobutamine drip low-dose. Patient currently on Levophed 4 mics per hour. Has been hypotensive. ? Stop spironolactone ? Stop Lantus. He has been hypoglycemic overnight. ? He does have worsening kidney function. ? Continue renally dosed vancomycin and Zosyn at this time. ? Blood cultures pending ? Carvedilol 3.125 twice daily ordered however held this morning secondary to hypotension. ? Continue aspirin, Plavix. ? Patient has multiple comorbid conditions at this time and will benefit from tertiary care center for disability approach of his medical issues. As per recommendations from cardiology will attempt to transfer. ? Echo from this admission did show worsening EF of 30%. Attestations 2 Medical Necessity Statement*: Greater than 2 midnight stay for management of multiple medical problems at this time. Critical Care Time: The high probability of a clinically significant, sudden or life threatening deterioration of the patient's [cardiovascular, renal] system(s) required my full and direct attention, intervention and personal management. The critical care time is as shown. This time is in addition to time spent performing any reported procedures but includes the following: [x] Data and vital sign review and interpretation [x] Patient assessment, examination and intervention [x] Documentation [x] Medication orders and management Critical Care Time (min): 60 Coding Level of Care Code Critical Care >/= 30 minutes Critical care time (in minutes): 60 The high probability of a clinically significant, sudden or life threatening deterioration, as referenced in this documentation, required my full and direct attention, intervention and personal management. The critical care time shown is in addition to time spent performing any reported separately billable procedures and includes the following: [x] Data and vital sign review and interpretation [x ] Patient assessment, examination and intervention [x] Medication orders and management [x] Patient/Family updates as able [x] Care Coordination and Documentation. Diagnoses Benign essential HTN I10 CHF (congestive heart failure) I50.9 Ischemic cardiomyopathy I25.5 CAD (coronary artery disease) I25.10 PAD (peripheral artery disease) I73.9 Hypercholesteremia E78.00 GERD (gastroesophageal reflux disease) K21.9 Centrilobular emphysema J43.2 COPD type: emphysema Emphysema type: centrilobular Obstructive sleep apnea G47.33 Bilateral edema of lower extremity R60.0 Cellulitis L03.90
--- NOTE | 2024-09-02 13:45 | PICC.NOTE ---
Triple lumen PICC placed to right basilic vein. Referred to vascular access nurse for PICC placement due to use of vasopressors. Risks and benefits discussed and informed consent obtained from pt. Right arm assessed with right basilic vein measuring 4.5 mm, straight, and apparent best choice for placement. Using sterile technique and MST, right basilic vein accessed x 1 stick. Mid-arm circumference measured 10 cm from right AC 28 cm. Trimmed cath 43 cm with 0 cm external length noted. CXR shows tip in distal SVC, in good position for use per radiologist. Line secured with stat-lock. Insertion site covered with Biopatch and TSM. Report given to bedside nurse, DANIELLE Fernandez.
[2024-09-02] MEDS: morphine 4 mg/mL SDV 1 mL 2 MG IVP ×2 (13:49→20:05)
[2024-09-02 13:53] LABS: Troponin(5th) Baseline 178 ng/L (0-15)
--- NOTE | 2024-09-02 14:11 | P.PN_ITS ---
<Statement entered by Nir Burnham MD - 09/02/24 23:42> Patient was evaluated and cared for in conjunction with an advanced practice practitioner. I personally examined the patient and reviewed the chart and all pertinent data including imaging, telemetry, and laboratory results. I discussed the patient in detail with the advanced practice practitioner. Please see their note for complete H&P testing result and agreed upon plan of care for the patient. I was asked by Dr. Rodriguez specifically to see patient today from peripheral arterial disease perspective. Patient is being treated by Dr. Rodriguez and hospital service for ischemic cardiomyopathy CHF and acute on chronic kidney disease. He was noted to have swelling of both lower extremities right more than left cellulitis of the right foot and leg, he was also hypotensive possible due to sepsis, he has history of decompensated heart failure and severely depressed ejection fraction. GENERAL: Patient is alert, awake and oriented x3. HEART: Regular S1 and S2. No murmur, rub or gallop. LUNGS: Clear to auscultate bilaterally. CENTRAL NERVOUS SYSTEM: Grossly nonfocal. EXTREMITIES: Lower extremities right leg swollen warm moist shiny skin patient able to move and wiggle toes has sensations because of swelling pulses cannot be major or felt he has 2-3+ edema. According to patient he is not hurting at rest but because of swollen and redness/infection he feels burning sensations. Assessment plan Critical limb ischemia Lower extremity edema Chronic venous insufficiency Cellulitis Possible sepsis Ischemic cardiomyopathy Decompensated systolic heart failure Chronic kidney disease I do not think that patient has acute limb threatening ischemia given warm foot and leg no paresthesia or motor deficit there is no need for urgent peripheral angiogram and intervention given history of hypotension, decompensated state of heart failure possible sepsis Advise Heparin IV Continue IV diuresis Continue antibiotics Once euvolemic and normotensive with improvement in lower extremity edema may consider peripheral angiogram will follow-up on the patient Subjective 2 Subjective: I saw patient with Nir Burnham MD. Patient is now putting out more urine after the increase in the Lasix. He has been weaned off of the Levophed drip. Still has a large amount of swelling bilateral lower extremities complicated with cellulitis. At the time of our visit he is not having severe rest pain. He does have tenderness to the area. Medications: Reviewed: Yes Vitals/I&O/Wt Last Vital Signs Temp 96.7 F L 09/02/24 08:00 Pulse 54 L 09/02/24 13:00 Resp 16 09/02/24 13:49 BP 110/58 09/02/24 13:00 Pulse Ox 93 09/02/24 13:49 O2 Del Method Room Air 09/02/24 08:11 FiO2 21 08/31/24 19:37 09/01/24 09/02/24 09/02/24 22:59 06:59 14:59 Intake Total 712.625 / 2397.625 1213.750 / 3611.375 530 / 530 Output Total 200 / 200 300 / 500 400 / 400 Balance 512.625 / 2197.625 913.750 / 3111.375 130 / 130 Weight last 48 hrs Weight 286 lb Weight 284 lb 6.341 oz Weight 280 lb 5 oz Weight 274 lb 4.8 oz Physical Exam 2 Narrative: General: No apparent distress, healthy appearing, well nourished HENMT: normoceophalic Muskuloskeletal: Full ROM Lymphatic: 3-4+ pitting edema bilateral lower extremities Respiratory: Normal respiratory effort, clear to auscultation bilaterally throughout all lung stevens, no use of accessory muscles Cardio: No JVD, regular rate, regular rhythm, S1 S2 normal, no murmurs, edema as stated above GI: distended Extremities: Full ROM, normal, normal capillary refill, no cyanosis, right lower extremity with blisters and cellulitis all the way down to the ankle, right foot with no Doppler pulses but has 2-second capillary refill foot is warm no signs of acute ischemia at this time Neuro: Alert and oriented x4, no focal motor deficits Psych: Affect normal, denies suicidal ideation, mental status grossly normal Skin: Weeping blisters and red right lower extremity as stated above Urinary Catheter Management: Burciaga: Cath Placed During This Visit: yes Reason for Continuing Indwelling Catheter: Accurate Measurement of Urinary Output in Critically Ill Patients Urinary Catheter Date of Insertion: 08/31/24 Urinary Catheter Time of Insertion: 19:00 Data 09/02/24 05:51 09/02/24 05:51 Micro: Microbiology 08/31/24 19:08 Urine Culture - Final Urine,Clean Catch 08/31/24 17:50 Blood Culture - Preliminary Blood NEGATIVE TO DATE 08/31/24 17:54 Blood Culture - Preliminary Blood NEGATIVE TO DATE A&P Assessment and plan (1) Ischemic cardiomyopathy: (2) PAD (peripheral artery disease): Plan Patient has been placed on a heparin drip. Discussed this case with Dr. Burnham who was present at bedside. This does not appear to be acute limb threatening ischemia. He has a warm foot with good capillary refill no rest pain. At this time patient will be placed on heparin drip and observe for any acute changes. Attestations 2 Medical Necessity Statement*: Patient requires continued hospital stay for close monitoring and further management based on above defined care Coding Level of Care Code Acute Code for [facility] Fwd Diagnoses Ischemic cardiomyopathy I25.5 PAD (peripheral artery disease) I73.9
--- NOTE | 2024-09-02 14:39 | PC.SOCIAL ---
IMM Updated Updated pt on IMM. No questions voiced. Provided pt a copy. Initialed, dated, & timed a copy & placed in chart.
[2024-09-02] MEDS: acetaminophen 325 mg Tablet 650 MG PO (14:50)
[2024-09-02 15:09] LABS: Urine Random Sodium 50 mmol/L
[2024-09-02 18:23] LABS: Glucose Point of Care 132 mg/dL (70-110)
[2024-09-02 19:14] LABS: Troponin 5 6HR Delta -20.2 ng/L (0-12)
[2024-09-02 19:17] LABS: Troponin 5 6HR 157.8 ng/L (0-15)
[2024-09-02 19:18] LABS: Partial Thromboplastin Time 81.1 SECONDS (23.9-36.7)
[2024-09-02 19:19] LABS: Vancomycin Trough 36.6 ug/mL (10-15)
--- NOTE | 2024-09-02 19:36 | PC.NURSE ---
SHift SUmmary: Patient rested in bed throughout the day. Legs continue to weep a large amount of fluid, unsure of total volume lost through weeping as is often saturates chucks, bed sheets, and even spills over onto floor at times despite multiple lined changes. PICC line placed today. Total urine output: 1775mL.... most of urine output came after dobutamine was started.
[2024-09-02 21:15] LABS: Glucose Point of Care 218 mg/dL (70-110)
[2024-09-02] MEDS: insulin lispro 100 unit/1 mL SUBCUT (22:33)
[2024-09-02] MEDS: lidocaine 2% viscous 15 ML, aluminum-mag hydrox-simethicon 30 ML, sucralfate oral liq 1 GM PO (23:35)
[2024-09-03] VITALS (52 sets, daily range): BP systolic 107–162; BP diastolic 50–116; PULSE 61–79; RESP 12–33; TEMP 36–36.5; O2SAT 88–94; BMI 43.3
[2024-09-03 00:38] LABS: Glucose Point of Care 127 mg/dL (70-110)
[2024-09-03] MEDS: morphine 4 mg/mL SDV 1 mL 2 MG IVP ×3 (00:54→14:39)
[2024-09-03] MEDS: piperacillin-tazobactam 3.375 GM in sodium chloride 0.9% (plus) 50 ML IV ×3 (02:44→18:21)
[2024-09-03] MEDS: heparin drip 25,000 UNIT/500 ML PREMIX 33 UNIT IV ×2 (02:47→18:34)
[2024-09-03 02:53] LABS: Basophils % 0.3 %; Eosinophils % 0.2 %; Hematocrit 42.7 % (37-53); Lymphocytes % 6.8 %; Mean Corpuscular HGB Conc 32.6 g/dL (30-55); Mean Corpuscular Hemoglobin 27.5 pg (27-33); Mean Corpuscular Volume 84.6 fl (82-101); Mean Platelet Volume 12.3 fL (7.4-10.4); Monocytes # 0.5 10^3/uL (0.2-0.9); Monocytes % 3.4 %; Neutrophils # 13.33 10^3/uL (1.8-7.7); Neutrophils % 88.4 %; Nucleated Red Blood Cells % 0 %; Platelet Count 62 10^3/cmm (157-399); Red Blood Count 5.05 10^6/uL (3.85-5.65); Red Cell Distribution Width 16.6 % (12.1-15.1); White Blood Count 15.06 10^3/uL (3.29-11.43)
[2024-09-03 03:08] LABS: Anion Gap 13.2 (5-19); Blood Urea Nitrogen 35 mg/dL (6-20); Calcium 7.9 mg/dL (8.5-10.5); Carbon Dioxide 25 mmol/L (22-29); Chloride 93 mmol/L (98-107); Creatinine Clr Calc Pharmacy 87.9481; Glomerular Filtration Rate 62.4 mL/min (90-130); Glucose 119 mg/dL (65-115); Magnesium 1.9 mg/dL (1.7-2.3); Osmolality Calculated 275 mOsm/kg (285-295); Potassium 3.2 mmol/L (3.5-5.1); Sodium 128 mmol/L (136-145)
[2024-09-03 03:11] LABS: Lactic Sepsis W/Reflex 2.6 mmol/L (0.5-2.2); Partial Thromboplastin Time 80.7 SECONDS (23.9-36.7)
[2024-09-03 03:37] LABS: Reflex Lactate Order REFLEX LACTIC ORDERD
[2024-09-03] MEDS: potassium chloride ER 20 mEq Tablet PO (06:25)
[2024-09-03] MEDS: FUROsemide 10 mg/mL SDV 10mL 60 MG IVP ×3 (06:25→21:27)
[2024-09-03 06:30] LABS: Lactic Acid level (Lactate) 1.9 mmol/L (0.5-2.2)
[2024-09-03] MEDS: HYDROcodone-acetaminophen 10-325 mg Tablet 1 TAB PO ×2 (07:14→19:08)
[2024-09-03] MEDS: potassium chloride ER 20 mEq Tablet 40 MEQ PO ×2 (07:33→16:06)
[2024-09-03] MEDS: albumin 12.5 GM/50 ML VIAL IV (07:34)
--- NOTE | 2024-09-03 07:38 | P.PN_ITS ---
Subjective 2 Subjective: BP improved , on Dobutamine drip UOP picked up Medications: Reviewed: Yes Vitals/I&O/Wt Last Vital Signs Temp 97.5 F L 09/03/24 04:00 Pulse 64 09/03/24 06:00 Resp 16 09/03/24 06:00 BP 126/76 09/03/24 06:00 Pulse Ox 93 09/03/24 06:00 O2 Del Method Room Air 09/03/24 06:00 FiO2 21 08/31/24 19:37 09/02/24 09/03/24 09/03/24 22:59 06:59 14:59 Intake Total 1433.425 / 2085.766 468.597 / 2554.363 50 / 50 Output Total 1375 / 1775 1700 / 3475 Balance 58.425 / 310.766 -1231.403 / -920.637 50 / 50 Weight last 48 hrs Weight 125.5 kg Weight 129.727 kg Weight 129 kg Physical Exam 2 Narrative: awake , alert HEENT s1s2 RRR per report Lungs clear per report + LE rola edema Urinary Catheter Management: Burciaga: Cath Placed During This Visit: yes Reason for Continuing Indwelling Catheter: Accurate Measurement of Urinary Output in Critically Ill Patients Urinary Catheter Date of Insertion: 08/31/24 Urinary Catheter Time of Insertion: 19:00 Data 09/03/24 02:33 09/03/24 02:33 Micro: Microbiology 08/31/24 19:08 Urine Culture - Final Urine,Clean Catch A&P Assessment and plan (1) RONY (acute kidney injury): 1. Acute kidney injury: Likely from renal hypoperfusion in the setting of low blood pressures and low EF. Also received IV contrast. Agree with dobutamine drip for now and watch renal function, , if patient gets repeated contrast, there is risk of worsening RONY and may require temporary HD. Continue IV Lasix, will hold Aldactone and potassium tabs temporarily Has anasarca, may require temporary HD if no response to diuretics for volume management 2. CHF: With ejection fraction 30 to 35%, cardiology following, 3. Bilateral lower extremity cellulitis/anasarca, diuretics as above may require temporary HD for volume management 4., Right lower extremity -question ischemia, workup in progress, 5. History of diabetes 6. Metabolic acidosis: Mild, monitor for now, likely from lactic acidosis 7. Hyponatremia: In the setting of anasarca, continue diuretics, will check urine sodium and urine osmolality and also add p.o. fluid restriction to 1200 mL/day. Patient evaluated using audiovisual cart. Time spent 40 minutes. Attestations 2 Medical Necessity Statement*: per chris Coding Level of Care Code Acute Code for [facility] Fwd Diagnoses RONY (acute kidney injury) N17.9
[2024-09-03 07:54] LABS: Glucose Point of Care 122 mg/dL (70-110)
[2024-09-03] MEDS: ipratropium-albuterol 3 mL Neb INHALATION (08:10)
[2024-09-03] MEDS: pantoprazole DR 40 mg Tablet PO (09:00)
[2024-09-03] MEDS: tamsulosin 0.4 mg Capsule PO (09:00)
[2024-09-03] MEDS: aspirin 81 mg EC Tablet PO (09:00)
[2024-09-03] MEDS: clopidogrel 75 mg Tablet PO (09:00)
[2024-09-03] MEDS: duloxetine 20 mg Capsule PO ×2 (09:00→18:21)
[2024-09-03] MEDS: nicotine 14 mg Patch 1 PATCH TRANSDERMA (09:01)
[2024-09-03] MEDS: DOBUTamine drip 500 MG/250 ML PREMIX 9.68 MG IV (09:05)
[2024-09-03 10:06] LABS: Partial Thromboplastin Time 54.9 SECONDS (23.9-36.7)
[2024-09-03] MEDS: heparin 5,000 unit/mL INJ 1 mL IVP (10:27)
[2024-09-03 11:34] LABS: Glucose Point of Care 167 mg/dL (70-110)
[2024-09-03] MEDS: insulin lispro 100 unit/1 mL SUBCUT ×2 (12:36→21:26)
--- NOTE | 2024-09-03 14:25 | PM.PN ---
Subjective Subjective: Seen this morning. States his leg is feeling better than before. Does have pulses bilaterally by Doppler. Potassium 3.2, creatinine 1.2. Lactic acid normalized to 1.9. Currently on dobutamine drip and Lasix. Urine output 2600 in last 24 hours. Vitals/I&O/Wt Last Vital Signs Temp 96.8 F L 09/03/24 08:00 Pulse 66 09/03/24 10:00 Resp 13 09/03/24 10:00 BP 125/63 09/03/24 10:00 Pulse Ox 92 09/03/24 09:30 O2 Del Method Room Air 09/03/24 08:17 FiO2 21 09/03/24 08:17 09/02/24 09/03/24 09/03/24 22:59 06:59 14:59 Intake Total 1433.425 / 2085.766 468.597 / 2554.363 531.287 / 531.287 Output Total 1375 / 1775 1700 / 3475 925 / 925 Balance 58.425 / 310.766 -1231.403 / -920.637 -393.713 / -393.713 Weight last 48 hrs Weight 125.5 kg Weight 129.727 kg Weight 129 kg Physical Exam Narrative: General: Alert oriented x3, patient seen laying in bed, obese large body habitus HEENT: Normocephalic, atraumatic, EOMI, breathing room air Cardio: Regular rate rhythm, normal S1-S2, Respiratory: Clear to auscultation bilaterally no wheezes or rhonchi at this time. GI: Abdomen soft, nontender, distended obese rounded, bowel sounds + Behavior: Poor historian Extremities: 4+ bilateral pitting edema up to thighs with numerous excoriations bilateral lower extremities and weeping lesions. Yellow fluid draining from right leg. Edema has slightly improved. Able to Doppler pulses bilateral feet. Urinary Catheter Management: Burciaga: Cath Placed During This Visit: yes Reason for Continuing Indwelling Catheter: Accurate Measurement of Urinary Output in Critically Ill Patients Urinary Catheter Date of Insertion: 08/31/24 Urinary Catheter Time of Insertion: 19:00 Data 09/03/24 02:33 09/03/24 02:33 Micro: Microbiology 08/31/24 19:08 Urine Culture - Final Urine,Clean Catch A&P Assessment and plan (1) Benign essential HTN: (2) CHF (congestive heart failure): (3) Ischemic cardiomyopathy: (4) CAD (coronary artery disease): (5) PAD (peripheral artery disease): (6) Hypercholesteremia: (7) GERD (gastroesophageal reflux disease): (8) COPD (chronic obstructive pulmonary disease): Qualifiers: COPD type: emphysema Emphysema type: centrilobular Qualified Code(s): J43.2 - Centrilobular emphysema (9) Obstructive sleep apnea: (10) Bilateral edema of lower extremity: (11) Cellulitis: Plan #Acute on chronic congestive systolic heart failure exacerbation #Diabetes mellitus, insulin-dependent #Cellulitis right lower extremity #Acute limb ischemia?ruled out. #Peripheral arterial disease #Dyslipidemia, hypertension #Peripheral neuropathy #GERD #Coronary artery disease status post PCI #History of STEMI, NSTEMI ? Patient did get a 60 IV Lasix in ER. Will place on 60 IV twice daily going forward. ? BNP 27,000. Will check lactic acid ? Check sputum culture Gram stain, patient did complain of expectorating brownish sputum. ? Check blood cultures, check urine culture ? Will place Burciaga catheter for accurate output. Does have a history of BPH. ? Patient on room air at this time. Will add DuoNeb every 6 hours as needed. ? Will check arterial Dopplers bilaterally and venous Dopplers ? Chest x-ray does show peripheral mid to lower left lung hazy opacities compatible with atelectasis or developing infection in the proper clinical setting. ? Will place on vancomycin and Zosyn for possible pneumonia and to cover for lower extremity cellulitis. Will have pharmacy to dose medications. ? Continue patient on home dose Lantus 70 units daily with 30 units at bedtime. Will add moderate dose intensity sliding scale insulin. ? Check hemoglobin A1c ? Will check C-reactive protein, procalcitonin ? Will hold off on septic bolus at this time. Patient does not meet sepsis criteria. He is hemodynamically stable. White count is 13,000. ? He would like to be a full code. -I will hold home Entresto ranolazine at this time. Continue Imdur, aspirin, Plavix, carvedilol. ? Lasix 60 IV twice daily. Add potassium 20 mEq daily. -Patient hyponatremic with sodium 128 most likely secondary to hypervolemia. -Check echocardiogram -EKG without any acute ischemic changes. Does have first-degree AV block. Full code DVT prophylaxis: Heparin subcu twice daily Patient has multiple comorbid conditions and is experiencing lower extremity cellulitis, possible pneumonia, heart failure exacerbation. He will most likely require greater than 72-hour stay for management of above issues. 09/01/2024 - arterial dopplers Abnormal arterial waveforms in both lower extremities suggesting hemodynamically significant stenoses without total occlusion. Correlation with CT angiography and vascular evaluation is recommended. - No sonographic evidence of deep venous thrombosis in either lower extremity. CXR shows: Peripheral mid to lower left lung hazy opacities compatible with atelectasis or developing infection in the proper clinical setting. - sodium 131, most likely 2/2 to hypervolemia - cr 1.2 today lactic acid 2.7. bandemia present. - sepsis 2/2 to pna, vs le cellulitis - place on ns @ 75 cc/hr gentle fluid hydration. hold lasix for now - check ct chest abd pelvis, right leg, abd aorta run-off - cardiology consult. will discuss regarding dobutamine gtt? - hold entresto, hold ranolzaine. - bp soft, reduce imdur to 60 daily - cut down coreg to 6.25 bid - check echo, pending. - lactic acid possibly elevated due to worsening heart failure, vs infection. pt may require icu transfer for dobutamine gtt and lasix. Pt did get lasix 60 iv 3 doses since admission, and did not have adequate urine output. last echo shows EF 40% 202209/02/2024 - - arterial dopplers Abnormal arterial waveforms in both lower extremities suggesting hemodynamically significant stenoses without total occlusion. Correlation with CT angiography and vascular evaluation is recommended. - No sonographic evidence of deep venous thrombosis in either lower extremity. CXR shows: Peripheral mid to lower left lung hazy opacities compatible with atelectasis or developing infection in the proper clinical setting. ? Patient has evidence of right lower limb ischemia. Leg has developed worsening blisters, weeping, worsening redness. Initial troponin 185, lactic acid 3.8 yesterday. Repeat lactic acid pending from this morning. ? Sodium worsened to 125, creatinine 1.4. Patient did receive contrast yesterday for CT abdomen runoff. ? CT aorta runoff shows right superficial femoral artery occluded at origin, patent iliac artery system and common femoral arteries bilaterally. Poor runoff to the ankles bilaterally with no evidence of posterior tibial arteries. Diffuse body wall anasarca. ? Will place patient on heparin drip. ? Discussed with cardiology. journeyman carpenter will be evaluating patient to make final determination. Patient may need vascular surgery referral. ? Continue Lasix 60 IV every 8 hours ? Placed on dobutamine drip low-dose. Patient currently on Levophed 4 mics per hour. Has been hypotensive. ? Stop spironolactone ? Stop Lantus. He has been hypoglycemic overnight. ? He does have worsening kidney function. ? Continue renally dosed vancomycin and Zosyn at this time. ? Blood cultures pending ? Carvedilol 3.125 twice daily ordered however held this morning secondary to hypotension. ? Continue aspirin, Plavix. ? Patient has multiple comorbid conditions at this time and will benefit from tertiary care center for disability approach of his medical issues. As per recommendations from cardiology will attempt to transfer. ? Echo from this admission did show worsening EF of 30%. 09/03/2024 -Right lower limb acute ischemia ruled out. ? Patient improving. Continue dobutamine drip at 2.5/h, continue Lasix 60 IV 3 times daily. ? Replete potassium ? Continue to hold nephrotoxics ? Continue to hold Lantus. Continue insulin sliding scale moderate dose intensity ? Continue vancomycin and Zosyn ? Blood cultures pending, negative to date ? Continue aspirin Plavix, heparin drip. ? Platelets 62,000. Continue to monitor. Will send over HIT panel. Check heparin-induced antibodies ? Check CBC at 6 PM. If platelets further declining. Will stop heparin drip and switch to argatroban. ? Nephrology following. ? Lactic acid is normalized. Cardiology following. No acute need to transfer patient at this time. Limb ischemia ruled out. Echo from this admission did show worsening EF of 30% Attestations Medical Necessity Statement*: Greater than 2 midnight stay for management of multiple medical problems at this time. Diagnoses Benign essential HTN I10 CHF (congestive heart failure) I50.9 Ischemic cardiomyopathy I25.5 CAD (coronary artery disease) I25.10 PAD (peripheral artery disease) I73.9 Hypercholesteremia E78.00 GERD (gastroesophageal reflux disease) K21.9 Centrilobular emphysema J43.2 COPD type: emphysema Emphysema type: centrilobular Obstructive sleep apnea G47.33 Bilateral edema of lower extremity R60.0 Cellulitis L03.90
[2024-09-03 16:46] LABS: Partial Thromboplastin Time 62.1 SECONDS (23.9-36.7)
[2024-09-03 16:58] LABS: Vancomycin Trough 18.1 ug/mL (10-15)
[2024-09-03 18:05] LABS: Basophils % 0.3 %; Eosinophils % 0.2 %; Hematocrit 43.6 % (37-53); Lymphocytes % 8.4 %; Mean Corpuscular HGB Conc 32.8 g/dL (30-55); Mean Corpuscular Hemoglobin 27.7 pg (27-33); Mean Corpuscular Volume 84.5 fl (82-101); Monocytes # 0.5 10^3/uL (0.2-0.9); Monocytes % 4.3 %; Nucleated Red Blood Cells % 0 %; Platelet Count 59 10^3/cmm (157-399); Red Blood Count 5.16 10^6/uL (3.85-5.65); Red Cell Distribution Width 16.9 % (12.1-15.1); White Blood Count 12.22 10^3/uL (3.29-11.43)
[2024-09-03] MEDS: vancomycin 1,750 MG/350 ML PIGGYBACK 175 MG IV (18:28)
[2024-09-03 18:56] LABS: Glucose Point of Care 137 mg/dL (70-110)
[2024-09-03 18:56] LABS: Anion Gap 12.8 (5-19); Blood Urea Nitrogen 28 mg/dL (6-20); Calcium 8.2 mg/dL (8.5-10.5); Carbon Dioxide 28 mmol/L (22-29); Chloride 94 mmol/L (98-107); Creatinine Clr Calc Pharmacy 115.0985; Glucose 155 mg/dL (65-115); Osmolality Calculated 281 mOsm/kg (285-295); Potassium 3.8 mmol/L (3.5-5.1); Sodium 131 mmol/L (136-145)
--- NOTE | 2024-09-03 19:10 | PC.NURSE ---
Shift SUmmary: Rested in bed throughout the day. Worked with physical therapy, but was unable to get out of bed, is eager to try tommorow and understands importance of activity. Legs continues to weep and be swollen, but much better compared to yesterday. Yesterday no pulse was detectable, even with doppler, in the right leg. BUt this morning a pulse was dopplereable and by late afternoon a faint pulse was palpable in the right leg. 1 bowel movement today 3075mL of urine output.
--- NOTE | 2024-09-03 19:58 | PM.PN ---
Subjective Subjective: Feeling better and diuresing well Right foot looks much better as swelling goes down, has good dorsalis pedis dopplerable and good capillary refill Medications: Reviewed: Yes Medication Review Details: Current Medications Acetaminophen (Acetaminophen 325 Mg Tablet) 650 mg PO Q6H PRN PRN Reason: Mild/Mod Pain Or Temp >/= 101 Hydrocodone Bitart/Acetaminophen (Hydrocodone-Acetaminophen 10-325 Mg Tablet) 1 tab PO QID PRN PRN Reason: Pain Last Admin: 09/02/24 09:26 Dose: 1 tab Albuterol/Ipratropium (Ipratropium-Albuterol 3 Ml Neb) 3 ml INHALATION Q6H PRN PRN Reason: SHORTNESS OF BREATH Last Admin: 09/02/24 08:10 Dose: 3 ml Aspirin (Aspirin 81 Mg Ec Tablet) 81 mg PO DAILY [facility] Last Admin: 09/02/24 08:48 Dose: 81 mg Carvedilol (Carvedilol 6.25 Mg Tablet) 3.125 mg PO BID [facility] Last Admin: 09/02/24 08:38 Dose: Not Given Clopidogrel Bisulfate (Clopidogrel 75 Mg Tablet) 75 mg PO DAILY [facility] Last Admin: 09/02/24 08:48 Dose: 75 mg Duloxetine HCl (Duloxetine 20 Mg Capsule) 20 mg PO BID [facility] Last Admin: 09/02/24 08:48 Dose: 20 mg Furosemide (Furosemide 10 Mg/Ml Sdv 10ml) 60 mg IVP Q8H [facility] Glucagon (Glucagon 1 Mg/Ml Kit 1 Ml) 1 mg IM ONCE PRN; Protocol PRN Reason: Adult Acute Hypoglycemia Nursing Prot. Heparin Sodium (Porcine) (Heparin 5,000 Unit/Ml Inj 1 Ml) 5,000 unit SUBCUT Q12H [facility] Last Admin: 09/02/24 05:21 Dose: 5,000 unit Heparin Sodium (Porcine) (Heparin 5,000 Unit/Ml Inj 1 Ml) 0 unit IVP PRN PRN; Protocol PRN Reason: Heparin Weight Based Protocol -Subsequent Bolus Piperacillin Sod/Tazobactam (Sod 3.375 gm/ Sodium Chloride) 50 mls @ 12.5 mls/hr IV Q8H [facility] Last Admin: 09/02/24 09:26 Dose: 12.5 mls/hr Dextrose (D5w) 500 mls @ 0 mls/hr IV ONCE PRN; Protocol PRN Reason: Adult Acute Hypoglycemia Prot Dextrose (D10w) 125 mls @ 750 mls/hr IV PRN PRN; Protocol PRN Reason: Adult Acute Hypoglycemia Nursing Protocol Last Infusion: 09/02/24 05:50 Dose: Infused Dextrose (D10w) 250 mls @ 1,000 mls/hr IV PRN PRN; Protocol PRN Reason: Adult Acute Hypoglycemia Nursing Protocol Vancomycin HCl (Vancocin) 2,000 mg in 400 mls @ 200 mls/hr IV Q12H [facility] Last Admin: 09/02/24 08:10 Dose: 200 mls/hr Norepinephrine Bitartrate (Levophed) 4 mg in 250 mls @ 0 mls/hr IV .Q0M [facility]; Protocol Last Titration: 09/02/24 05:15 Dose: 4 mcg/min, 15 mls/hr Heparin Sodium/Sodium Chloride (Heparin Drip) 25,000 unit in 500 mls @ 0 mls/hr IV CONT [facility]; Protocol Dobutamine HCl/Dextrose (Dobutamine Drip) 500 mg in 250 mls @ 0 mls/hr IV .Q0M [facility]; Protocol Insulin Human Lispro (Insulin Lispro 100 Unit/1 Ml) 0 unit SUBCUT WM&BEDTIME [facility]; Protocol Last Admin: 09/02/24 07:57 Dose: Not Given Isosorbide Mononitrate (Isosorbide Mononitrate Er 60 Mg Tablet) 60 mg PO DAILY [facility] Morphine Sulfate (Morphine 4 Mg/Ml Sdv 1 Ml) 2 mg IVP Q4H PRN PRN Reason: SEVERE PAIN Last Admin: 08/31/24 22:18 Dose: 2 mg Nicotine (Nicotine 14 Mg Patch) 1 patch TRANSDERMA DAILY [facility] Last Admin: 09/02/24 08:48 Dose: 1 patch Ondansetron HCl (Ondansetron 2 Mg/Ml Sdv 2 Ml) 4 mg IVP Q8H PRN PRN Reason: vomiting, or N/V if npo Pantoprazole Sodium (Pantoprazole Dr 40 Mg Tablet) 40 mg PO DAILY [facility] Last Admin: 09/02/24 08:48 Dose: 40 mg Potassium Chloride (Potassium Chloride Er 20 Meq Tablet) 20 meq PO Q24H [facility] Ranolazine (Ranolazine (12hr) 500 Mg Tablet) 500 mg PO BID [facility] Last Admin: 12/04/24 22:27 Dose: 500 mg Spironolactone (Spironolactone 25 Mg Tablet) 25 mg PO DAILY [facility] Last Admin: 09/02/24 08:48 Dose: 25 mg Tamsulosin HCl (Tamsulosin 0.4 Mg Capsule) 0.4 mg PO DAILY [facility] Last Admin: 09/02/24 08:48 Dose: 0.4 mg Vitals/I&O/Wt Last Vital Signs Temp 97.3 F L 09/03/24 16:30 Pulse 71 09/03/24 19:00 Resp 26 H 09/03/24 18:00 BP 135/88 09/03/24 19:00 Pulse Ox 93 09/03/24 18:30 O2 Del Method Room Air 09/03/24 18:00 FiO2 21 09/03/24 08:17 09/03/24 09/03/24 09/03/24 06:59 14:59 22:59 Intake Total 468.597 / 2554.363 581.287 / 291.295 6369.70 / 1652.987 Output Total 1700 / 3475 925 / 925 2150 / 3075 Balance -1231.403 / -920.637 -343.713 / -343.713 -1078.30 / -1422.013 Weight last 48 hrs Weight 276 lb 10.882 oz Weight 286 lb Weight 284 lb 6.341 oz Physical Exam Const: OTHER: GENERAL: Patient is alert, awake and oriented x3. HEART: Regular S1 and S2. No murmur, rub or gallop. LUNGS: Clear to auscultate bilaterally. CENTRAL NERVOUS SYSTEM: Grossly nonfocal. EXTREMITIES: Lower extremities both leg bilateral 3-4+ edema with blisters, right leg has cellulitis, has dopplerable posterior tibial pulse in the right leg. Denies any pain at rest Urinary Catheter Management: Burciaga: Cath Placed During This Visit: yes Reason for Continuing Indwelling Catheter: Accurate Measurement of Urinary Output in Critically Ill Patients Urinary Catheter Date of Insertion: 08/31/24 Urinary Catheter Time of Insertion: 19:00 Data 09/03/24 17:56 09/03/24 18:32 Micro: Microbiology 09/03/24 16:00 Gram Stain - Final Sputum - Expectorated Sputum A&P Assessment and plan (1) Ischemic cardiomyopathy: Agree with dobutamine and diuresis patient diuresing well continue to monitor (2) PAD (peripheral artery disease): patient does not have acute limb ischemia lower extremity edema cellulitis and blisters contributing to swelling of the both leg and pain. Patient has dopplerable posterior tibial pulse in the right leg. Continue to diurese continue to apply antibiotics use IV antibiotics and wound care Attestations Medical Necessity Statement*: Patient require continuation hospitalization for above defined care Coding Level of Care Code Acute Code for [facility] Diagnoses Ischemic cardiomyopathy I25.5 PAD (peripheral artery disease) I73.9
[2024-09-03 21:21] LABS: Glucose Point of Care 160 mg/dL (70-110)
[2024-09-03] MEDS: efferdent effervescent 1 EACH DENTAL (23:26)
[2024-09-04] VITALS (25 sets, daily range): BP systolic 127–179; BP diastolic 66–110; PULSE 64–93; RESP 15–29; TEMP 36.3–36.4; O2SAT 90–96
[2024-09-04] MEDS: HYDROcodone-acetaminophen 10-325 mg Tablet 1 TAB PO (02:06)
[2024-09-04] MEDS: piperacillin-tazobactam 3.375 GM in sodium chloride 0.9% (plus) 50 ML IV ×3 (02:06→17:35)
[2024-09-04] MEDS: FUROsemide 10 mg/mL SDV 10mL 60 MG IVP ×2 (04:29→12:30)
[2024-09-04 07:12] LABS: Basophils % 0.1 %; Eosinophils % 0.4 %; Hematocrit 43.3 % (37-53); Lymphocytes % 10.3 %; Mean Corpuscular HGB Conc 31.9 g/dL (30-55); Mean Corpuscular Hemoglobin 27.2 pg (27-33); Mean Corpuscular Volume 85.4 fl (82-101); Monocytes # 0.4 10^3/uL (0.2-0.9); Monocytes % 3.9 %; Neutrophils # 7.76 10^3/uL (1.8-7.7); Neutrophils % 84.5 %; Nucleated Red Blood Cells % 0 %; Platelet Count 62 10^3/cmm (157-399); Red Blood Count 5.07 10^6/uL (3.85-5.65); Red Cell Distribution Width 16.9 % (12.1-15.1); White Blood Count 9.19 10^3/uL (3.29-11.43)
[2024-09-04 07:18] LABS: Mean Platelet Volume 11.5 fL (7.4-10.4)
[2024-09-04 07:32] LABS: Partial Thromboplastin Time 63.6 SECONDS (23.9-36.7)
[2024-09-04 07:39] LABS: Anion Gap 12.1 (5-19); Blood Urea Nitrogen 25 mg/dL (6-20); Calcium 8.3 mg/dL (8.5-10.5); Carbon Dioxide 30 mmol/L (22-29); Chloride 95 mmol/L (98-107); Creatinine Clr Calc Pharmacy 113.1741; Glucose 136 mg/dL (65-115); Magnesium 1.7 mg/dL (1.7-2.3); Osmolality Calculated 282 mOsm/kg (285-295); Phosphorus 1.7 mg/dL (2.5-4.5); Potassium 4.1 mmol/L (3.5-5.1); Sodium 133 mmol/L (136-145)
--- NOTE | 2024-09-04 08:10 | P.PN_ITS ---
Subjective 2 Subjective: feels better. still very edematous. weak. dec SOB. no n/v/ f/c/cp. + skin lkesions Medications: Reviewed: Yes Medication Review Details: Current Medications Acetaminophen (Acetaminophen 325 Mg Tablet) 650 mg PO Q6H PRN PRN Reason: Mild/Mod Pain Or Temp >/= 101 Last Admin: 09/02/24 14:50 Dose: 650 mg Hydrocodone Bitart/Acetaminophen (Hydrocodone-Acetaminophen 10-325 Mg Tablet) 1 tab PO QID PRN PRN Reason: Pain Last Admin: 09/04/24 02:06 Dose: 1 tab Albuterol/Ipratropium (Ipratropium-Albuterol 3 Ml Neb) 3 ml INHALATION Q6H PRN PRN Reason: SHORTNESS OF BREATH Last Admin: 09/03/24 08:10 Dose: 3 ml Aspirin (Aspirin 81 Mg Ec Tablet) 81 mg PO DAILY [facility] Last Admin: 09/03/24 09:00 Dose: 81 mg Clopidogrel Bisulfate (Clopidogrel 75 Mg Tablet) 75 mg PO DAILY [facility] Last Admin: 09/03/24 09:00 Dose: 75 mg Denture Adhesive (Efferdent Effervescent) 1 each DENTAL PRN PRN PRN Reason: dental care Last Admin: 09/03/24 23:26 Dose: 1 each Duloxetine HCl (Duloxetine 20 Mg Capsule) 20 mg PO BID [facility] Last Admin: 09/03/24 18:21 Dose: 20 mg Furosemide (Furosemide 10 Mg/Ml Sdv 10ml) 60 mg IVP Q8H [facility] Last Admin: 09/04/24 04:29 Dose: 60 mg Glucagon (Glucagon 1 Mg/Ml Kit 1 Ml) 1 mg IM ONCE PRN; Protocol PRN Reason: Adult Acute Hypoglycemia Nursing Prot. Heparin Sodium (Porcine) (Heparin 5,000 Unit/Ml Inj 1 Ml) 5,000 unit SUBCUT Q12H [facility] Last Admin: 09/02/24 05:21 Dose: 5,000 unit Heparin Sodium (Porcine) (Heparin 5,000 Unit/Ml Inj 1 Ml) 0 unit IVP PRN PRN; Protocol PRN Reason: Heparin Weight Based Protocol -Subsequent Bolus Last Admin: 09/03/24 10:27 Dose: 200 unit Piperacillin Sod/Tazobactam (Sod 3.375 gm/ Sodium Chloride) 50 mls @ 12.5 mls/hr IV Q8H [facility] Last Infusion: 09/04/24 06:13 Dose: Infused Dextrose (D5w) 500 mls @ 0 mls/hr IV ONCE PRN; Protocol PRN Reason: Adult Acute Hypoglycemia Prot Dextrose (D10w) 125 mls @ 750 mls/hr IV PRN PRN; Protocol PRN Reason: Adult Acute Hypoglycemia Nursing Protocol Last Infusion: 09/02/24 05:50 Dose: Infused Dextrose (D10w) 250 mls @ 1,000 mls/hr IV PRN PRN; Protocol PRN Reason: Adult Acute Hypoglycemia Nursing Protocol Norepinephrine Bitartrate (Levophed) 4 mg in 250 mls @ 0 mls/hr IV .Q0M [facility]; Protocol Last Titration: 09/02/24 13:00 Dose: 0 mcg/min, 0 mls/hr Heparin Sodium/Sodium Chloride (Heparin Drip) 25,000 unit in 500 mls @ 0 mls/hr IV CONT [facility]; Protocol Last Titration: 09/04/24 00:25 Dose: 10.85 unit/kg/hr, 28 mls/hr Dobutamine HCl/Dextrose (Dobutamine Drip) 500 mg in 250 mls @ 0 mls/hr IV .Q0M [facility]; Protocol Last Admin: 09/03/24 09:05 Dose: 2.5 mcg/kg/min, 9.68 mls/hr Vancomycin HCl (Vancocin) 1,750 mg in 350 mls @ 175 mls/hr IV Q18H [facility] Last Infusion: 09/03/24 20:28 Dose: Infused Insulin Human Lispro (Insulin Lispro 100 Unit/1 Ml) 0 unit SUBCUT WM&BEDTIME [facility]; Protocol Last Admin: 09/03/24 21:26 Dose: 4 unit Isosorbide Mononitrate (Isosorbide Mononitrate Er 60 Mg Tablet) 60 mg PO DAILY [facility] Morphine Sulfate (Morphine 4 Mg/Ml Sdv 1 Ml) 2 mg IVP Q4H PRN PRN Reason: SEVERE PAIN Last Admin: 09/03/24 14:39 Dose: 2 mg Nicotine (Nicotine 14 Mg Patch) 1 patch TRANSDERMA DAILY [facility] Last Admin: 09/03/24 09:01 Dose: 1 patch Ondansetron HCl (Ondansetron 2 Mg/Ml Sdv 2 Ml) 4 mg IVP Q8H PRN PRN Reason: vomiting, or N/V if npo Pantoprazole Sodium (Pantoprazole Dr 40 Mg Tablet) 40 mg PO DAILY [facility] Last Admin: 09/03/24 09:00 Dose: 40 mg Potassium Chloride (Potassium Chloride Er 20 Meq Tablet) 20 meq PO Q24H [facility] Last Admin: 09/03/24 06:25 Dose: 20 meq Ranolazine (Ranolazine (12hr) 500 Mg Tablet) 500 mg PO BID [facility] Last Admin: 08/31/24 22:27 Dose: 500 mg Spironolactone (Spironolactone 25 Mg Tablet) 25 mg PO DAILY [facility] Last Admin: 09/02/24 08:48 Dose: 25 mg Tamsulosin HCl (Tamsulosin 0.4 Mg Capsule) 0.4 mg PO DAILY [facility] Last Admin: 09/03/24 09:00 Dose: 0.4 mg Vitals/I&O/Wt Last Vital Signs Temp 97.4 F L 09/04/24 04:00 Pulse 74 09/04/24 06:00 Resp 20 H 09/04/24 06:00 BP 130/66 09/04/24 06:00 Pulse Ox 94 09/04/24 06:00 O2 Del Method Room Air 09/04/24 06:00 FiO2 21 09/03/24 08:17 09/03/24 09/04/24 09/04/24 22:59 06:59 14:59 Intake Total 1471.70 / 2052.987 493.05 / 2546.037 Output Total 4300 / 5225 1900 / 7125 Balance -2828.30 / -3172.013 -1406.95 / -4578.963 Weight last 48 hrs Weight 121.744 kg Weight 125.5 kg Weight 129.727 kg Physical Exam 2 Narrative: Patient is morbidly obese. Vital signs stable in ICU. Patient remains on dobutamine and heparin drip. The patient is getting IV Lasix. HEENT normocephalic atraumatic. Neck is supple. Lungs crackles bilaterally. Heart regular with systolic murmur. Abdomen is soft positive bowel sounds. Remedies bilateral edema worse on right than left. With erythematous areas on his legs. Poor distal pulses. Neuro awake alert and oriented and moves but weak Urinary Catheter Management: Burciaga: Cath Placed During This Visit: yes Reason for Continuing Indwelling Catheter: Accurate Measurement of Urinary Output in Critically Ill Patients Urinary Catheter Date of Insertion: 08/31/24 Urinary Catheter Time of Insertion: 19:00 Data 09/04/24 06:40 09/04/24 06:40 Micro: Microbiology 09/03/24 16:00 Gram Stain - Final Sputum - Expectorated Sputum A&P Assessment and plan (1) RONY (acute kidney injury): 59-year-old gentleman with heart failure reduced EF acute on chronic exacerbation. Patient also significant lower extremity cellulitis/edema and anasarca. Patient has lower extremity ischemia and peripheral vascular disease. 1. Acute kidney injury: Likely from renal hypoperfusion in the setting of low blood pressures and low EF. Also received IV contrast. Renal function is improving. 2. CHF: With ejection fraction 30 to 35%, cardiology following. Continue furosemide dobutamine and albumin. Consider adding acetazolamide as patient is developing a metabolic alkalosis. 3. Bilateral lower extremity cellulitis/anasarca,-per medicine and cardiology 4., Right lower extremity -question ischemia, workup in progress, 5. History of diabetes 6. Hyponatremia: Monitor with diuresis. Elevated urine sodium was with diuretics. 7. Replace phosphorus. Discussed in detail with Dr. Coreas-as sodium and creatinine are improving with diuresis. Renal will sign off please give a call if we can be of any further assistance. Patient evaluated using audiovisual cart. Plan Continue diuretics and monitoring electrolytes as per cardiology and medicine Attestations 2 Medical Necessity Statement*: Peripheral vascular disease anasarca electrolyte abnormalities Time Spent in Patient Care: 16 - 35 minutes (>than 50% of time sp ent in counselling and/or direct pt care on unit) . Coding Level of Care Code Acute Code for [facility] Diagnoses RONY (acute kidney injury) N17.9
[2024-09-04] MEDS: pantoprazole DR 40 mg Tablet PO (08:11)
[2024-09-04] MEDS: tamsulosin 0.4 mg Capsule PO (08:11)
[2024-09-04] MEDS: duloxetine 20 mg Capsule PO ×2 (08:11→17:36)
[2024-09-04] MEDS: aspirin 81 mg EC Tablet PO (08:11)
[2024-09-04] MEDS: nicotine 14 mg Patch 1 PATCH TRANSDERMA (08:12)
[2024-09-04] MEDS: acetaminophen 325 mg Tablet 650 MG PO ×2 (08:12→21:47)
[2024-09-04] MEDS: clopidogrel 75 mg Tablet PO (08:12)
[2024-09-04 08:19] LABS: Glucose Point of Care 132 mg/dL (70-110)
[2024-09-04 09:06] LABS: Vancomycin Random 21.6 ug/mL (20.0-40.0)
[2024-09-04] MEDS: ondansetron 2 mg/ML SDV 2 mL 4 MG IVP (09:29)
[2024-09-04] MEDS: potassium phosphate (mEq K) 40 MEQ in sodium chloride 0.9% (100 ml) 100 ML 27.25 MEQ IV (09:29)
[2024-09-04] MEDS: ipratropium-albuterol 3 mL Neb INHALATION (10:21)
[2024-09-04] MEDS: DOBUTamine drip 500 MG/250 ML PREMIX 9.68 MG IV (10:58)
[2024-09-04 12:28] LABS: Glucose Point of Care 135 mg/dL (70-110)
[2024-09-04] MEDS: vancomycin 1,750 MG/350 ML PIGGYBACK 175 MG IV (12:30)
[2024-09-04] MEDS: heparin drip 25,000 UNIT/500 ML PREMIX 28 UNIT IV (12:33)
[2024-09-04 14:42] LABS: Partial Thromboplastin Time 82.4 SECONDS (23.9-36.7)
--- NOTE | 2024-09-04 15:24 | PM.PN ---
Subjective Subjective: seen today no acute events overnight platelets 62 1.6L neg since admission starting to feel better he states Vitals/I&O/Wt Last Vital Signs Temp 97.4 F L 09/04/24 04:00 Pulse 67 09/04/24 15:00 Resp 16 09/04/24 15:00 BP 131/68 09/04/24 15:00 Pulse Ox 91 09/04/24 14:00 O2 Del Method Room Air 09/04/24 10:22 FiO2 21 09/03/24 08:17 09/04/24 09/04/24 09/04/24 06:59 14:59 22:59 Intake Total 493.05 / 2546.037 1487.6409 / 1487.6409 Output Total 1900 / 7125 Balance -1406.95 / -4578.963 1487.6409 / 1487.6409 Weight last 48 hrs Weight 121.744 kg Weight 125.5 kg Physical Exam Narrative: General: Alert oriented x3, patient seen laying in bed, obese large body habitus HEENT: Normocephalic, atraumatic, EOMI, breathing room air Cardio: Regular rate rhythm, normal S1-S2, Respiratory: Clear to auscultation bilaterally no wheezes or rhonchi at this time. GI: Abdomen soft, nontender, distended obese rounded, bowel sounds + Behavior: Poor historian Extremities: 3+ bilateral pitting edema up to thighs with numerous excoriations bilateral lower extremities and weeping lesions. Yellow fluid draining from right leg. Edema has slightly improved. Able to Doppler pulses bilateral feet. Urinary Catheter Management: Burciaga: Cath Placed During This Visit: yes Reason for Continuing Indwelling Catheter: Accurate Measurement of Urinary Output in Critically Ill Patients Urinary Catheter Date of Insertion: 08/31/24 Urinary Catheter Time of Insertion: 19:00 Data 09/04/24 06:40 09/04/24 06:40 Micro: Microbiology 09/03/24 16:00 Gram Stain - Final Sputum - Expectorated Sputum A&P Assessment and plan (1) Benign essential HTN: (2) CHF (congestive heart failure): (3) Ischemic cardiomyopathy: (4) CAD (coronary artery disease): (5) PAD (peripheral artery disease): (6) Hypercholesteremia: (7) GERD (gastroesophageal reflux disease): (8) COPD (chronic obstructive pulmonary disease): Qualifiers: COPD type: emphysema Emphysema type: centrilobular Qualified Code(s): J43.2 - Centrilobular emphysema (9) Obstructive sleep apnea: (10) Bilateral edema of lower extremity: (11) Cellulitis: Plan #Acute on chronic congestive systolic heart failure exacerbation #Diabetes mellitus, insulin-dependent #Cellulitis right lower extremity #Acute limb ischemia?ruled out. #Peripheral arterial disease #Dyslipidemia, hypertension #Peripheral neuropathy #GERD #Coronary artery disease status post PCI #History of STEMI, NSTEMI ? Patient did get a 60 IV Lasix in ER. Will place on 60 IV twice daily going forward. ? BNP 27,000. Will check lactic acid ? Check sputum culture Gram stain, patient did complain of expectorating brownish sputum. ? Check blood cultures, check urine culture ? Will place Burciaga catheter for accurate output. Does have a history of BPH. ? Patient on room air at this time. Will add DuoNeb every 6 hours as needed. ? Will check arterial Dopplers bilaterally and venous Dopplers ? Chest x-ray does show peripheral mid to lower left lung hazy opacities compatible with atelectasis or developing infection in the proper clinical setting. ? Will place on vancomycin and Zosyn for possible pneumonia and to cover for lower extremity cellulitis. Will have pharmacy to dose medications. ? Continue patient on home dose Lantus 70 units daily with 30 units at bedtime. Will add moderate dose intensity sliding scale insulin. ? Check hemoglobin A1c ? Will check C-reactive protein, procalcitonin ? Will hold off on septic bolus at this time. Patient does not meet sepsis criteria. He is hemodynamically stable. White count is 13,000. ? He would like to be a full code. -I will hold home Entresto ranolazine at this time. Continue Imdur, aspirin, Plavix, carvedilol. ? Lasix 60 IV twice daily. Add potassium 20 mEq daily. -Patient hyponatremic with sodium 128 most likely secondary to hypervolemia. -Check echocardiogram -EKG without any acute ischemic changes. Does have first-degree AV block. Full code DVT prophylaxis: Heparin subcu twice daily Patient has multiple comorbid conditions and is experiencing lower extremity cellulitis, possible pneumonia, heart failure exacerbation. He will most likely require greater than 72-hour stay for management of above issues. 09/01/2024 - arterial dopplers Abnormal arterial waveforms in both lower extremities suggesting hemodynamically significant stenoses without total occlusion. Correlation with CT angiography and vascular evaluation is recommended. - No sonographic evidence of deep venous thrombosis in either lower extremity. CXR shows: Peripheral mid to lower left lung hazy opacities compatible with atelectasis or developing infection in the proper clinical setting. - sodium 131, most likely 2/2 to hypervolemia - cr 1.2 today lactic acid 2.7. bandemia present. - sepsis 2/2 to pna, vs le cellulitis - place on ns @ 75 cc/hr gentle fluid hydration. hold lasix for now - check ct chest abd pelvis, right leg, abd aorta run-off - cardiology consult. will discuss regarding dobutamine gtt? - hold entresto, hold ranolzaine. - bp soft, reduce imdur to 60 daily - cut down coreg to 6.25 bid - check echo, pending. - lactic acid possibly elevated due to worsening heart failure, vs infection. pt may require icu transfer for dobutamine gtt and lasix. Pt did get lasix 60 iv 3 doses since admission, and did not have adequate urine output. last echo shows EF 40% 202209/02/2024 - - arterial dopplers Abnormal arterial waveforms in both lower extremities suggesting hemodynamically significant stenoses without total occlusion. Correlation with CT angiography and vascular evaluation is recommended. - No sonographic evidence of deep venous thrombosis in either lower extremity. CXR shows: Peripheral mid to lower left lung hazy opacities compatible with atelectasis or developing infection in the proper clinical setting. ? Patient has evidence of right lower limb ischemia. Leg has developed worsening blisters, weeping, worsening redness. Initial troponin 185, lactic acid 3.8 yesterday. Repeat lactic acid pending from this morning. ? Sodium worsened to 125, creatinine 1.4. Patient did receive contrast yesterday for CT abdomen runoff. ? CT aorta runoff shows right superficial femoral artery occluded at origin, patent iliac artery system and common femoral arteries bilaterally. Poor runoff to the ankles bilaterally with no evidence of posterior tibial arteries. Diffuse body wall anasarca. ? Will place patient on heparin drip. ? Discussed with cardiology. senior net software engineer will be evaluating patient to make final determination. Patient may need vascular surgery referral. ? Continue Lasix 60 IV every 8 hours ? Placed on dobutamine drip low-dose. Patient currently on Levophed 4 mics per hour. Has been hypotensive. ? Stop spironolactone ? Stop Lantus. He has been hypoglycemic overnight. ? He does have worsening kidney function. ? Continue renally dosed vancomycin and Zosyn at this time. ? Blood cultures pending ? Carvedilol 3.125 twice daily ordered however held this morning secondary to hypotension. ? Continue aspirin, Plavix. ? Patient has multiple comorbid conditions at this time and will benefit [facility] of his medical issues. As per recommendations from cardiology will attempt to transfer. ? Echo from this admission did show worsening EF of 30%. 09/03/2024 -Right lower limb acute ischemia ruled out. ? Patient improving. Continue dobutamine drip at 2.5/h, continue Lasix 60 IV 3 times daily. ? Replete potassium ? Continue to hold nephrotoxics ? Continue to hold Lantus. Continue insulin sliding scale moderate dose intensity ? Continue vancomycin and Zosyn ? Blood cultures pending, negative to date ? Continue aspirin Plavix, heparin drip. ? Platelets 62,000. Continue to monitor. Will send over HIT panel. Check heparin-induced antibodies ? Check CBC at 6 PM. If platelets further declining. Will stop heparin drip and switch to argatroban. ? Nephrology following. ? Lactic acid is normalized. Cardiology following. No acute need to transfer patient at this time. Limb ischemia ruled out. Echo from this admission did show worsening EF of 30% 09/04/2024 - platelets stable at 62K, no further drop - Continue dobutamine, continue to diurese - switch to lasix 40 IV BID - recheck labs in AM - will consider diamox tomorrow - EF 30% - continue current managment ? Continue vancomycin and Zosyn ? Blood cultures pending, negative to date ? Continue aspirin Plavix, heparin drip. - order phosphorus orally Attestations Medical Necessity Statement*: Greater than 2 midnight stay for management of multiple medical problems at this time. Coding Level of Care Code 24265 Diagnoses Benign essential HTN I10 CHF (congestive heart failure) I50.9 Ischemic cardiomyopathy I25.5 CAD (coronary artery disease) I25.10 PAD (peripheral artery disease) I73.9 Hypercholesteremia E78.00 GERD (gastroesophageal reflux disease) K21.9 Centrilobular emphysema J43.2 COPD type: emphysema Emphysema type: centrilobular Obstructive sleep apnea G47.33 Bilateral edema of lower extremity R60.0 Cellulitis L03.90
[2024-09-04] MEDS: phosphorus 250 mg Tablet PO (17:36)
[2024-09-04 17:50] LABS: Glucose Point of Care 116 mg/dL (70-110)
--- NOTE | 2024-09-04 19:43 | PM.PN ---
Subjective Subjective: Continues to do fine and urine output is adequate Lower extremities continues to improve Medications: Reviewed: Yes Medication Review Details: Current Medications Acetaminophen (Acetaminophen 325 Mg Tablet) 650 mg PO Q6H PRN PRN Reason: Mild/Mod Pain Or Temp >/= 101 Last Admin: 09/02/24 14:50 Dose: 650 mg Hydrocodone Bitart/Acetaminophen (Hydrocodone-Acetaminophen 10-325 Mg Tablet) 1 tab PO QID PRN PRN Reason: Pain Last Admin: 09/04/24 02:06 Dose: 1 tab Albuterol/Ipratropium (Ipratropium-Albuterol 3 Ml Neb) 3 ml INHALATION Q6H PRN PRN Reason: SHORTNESS OF BREATH Last Admin: 09/03/24 08:10 Dose: 3 ml Aspirin (Aspirin 81 Mg Ec Tablet) 81 mg PO DAILY [facility] Last Admin: 09/03/24 09:00 Dose: 81 mg Clopidogrel Bisulfate (Clopidogrel 75 Mg Tablet) 75 mg PO DAILY [facility] Last Admin: 09/03/24 09:00 Dose: 75 mg Denture Adhesive (Efferdent Effervescent) 1 each DENTAL PRN PRN PRN Reason: dental care Last Admin: 09/03/24 23:26 Dose: 1 each Duloxetine HCl (Duloxetine 20 Mg Capsule) 20 mg PO BID [facility] Last Admin: 09/03/24 18:21 Dose: 20 mg Furosemide (Furosemide 10 Mg/Ml Sdv 10ml) 60 mg IVP Q8H [facility] Last Admin: 09/04/24 04:29 Dose: 60 mg Glucagon (Glucagon 1 Mg/Ml Kit 1 Ml) 1 mg IM ONCE PRN; Protocol PRN Reason: Adult Acute Hypoglycemia Nursing Prot. Heparin Sodium (Porcine) (Heparin 5,000 Unit/Ml Inj 1 Ml) 5,000 unit SUBCUT Q12H [facility] Last Admin: 09/02/24 05:21 Dose: 5,000 unit Heparin Sodium (Porcine) (Heparin 5,000 Unit/Ml Inj 1 Ml) 0 unit IVP PRN PRN; Protocol PRN Reason: Heparin Weight Based Protocol -Subsequent Bolus Last Admin: 09/03/24 10:27 Dose: 200 unit Piperacillin Sod/Tazobactam (Sod 3.375 gm/ Sodium Chloride) 50 mls @ 12.5 mls/hr IV Q8H [facility] Last Infusion: 09/04/24 06:13 Dose: Infused Dextrose (D5w) 500 mls @ 0 mls/hr IV ONCE PRN; Protocol PRN Reason: Adult Acute Hypoglycemia Prot Dextrose (D10w) 125 mls @ 750 mls/hr IV PRN PRN; Protocol PRN Reason: Adult Acute Hypoglycemia Nursing Protocol Last Infusion: 09/02/24 05:50 Dose: Infused Dextrose (D10w) 250 mls @ 1,000 mls/hr IV PRN PRN; Protocol PRN Reason: Adult Acute Hypoglycemia Nursing Protocol Norepinephrine Bitartrate (Levophed) 4 mg in 250 mls @ 0 mls/hr IV .Q0M [facility]; Protocol Last Titration: 09/02/24 13:00 Dose: 0 mcg/min, 0 mls/hr Heparin Sodium/Sodium Chloride (Heparin Drip) 25,000 unit in 500 mls @ 0 mls/hr IV CONT [facility]O; Protocol Last Titration: 09/04/24 00:25 Dose: 10.85 unit/kg/hr, 28 mls/hr Dobutamine HCl/Dextrose (Dobutamine Drip) 500 mg in 250 mls @ 0 mls/hr IV .Q0M [facility]; Protocol Last Admin: 09/03/24 09:05 Dose: 2.5 mcg/kg/min, 9.68 mls/hr Vancomycin HCl (Vancocin) 1,750 mg in 350 mls @ 175 mls/hr IV Q18H [facility] Last Infusion: 09/03/24 20:28 Dose: Infused Insulin Human Lispro (Insulin Lispro 100 Unit/1 Ml) 0 unit SUBCUT WM&BEDTIME [facility]O; Protocol Last Admin: 09/03/24 21:26 Dose: 4 unit Isosorbide Mononitrate (Isosorbide Mononitrate Er 60 Mg Tablet) 60 mg PO DAILY [facility] Morphine Sulfate (Morphine 4 Mg/Ml Sdv 1 Ml) 2 mg IVP Q4H PRN PRN Reason: SEVERE PAIN Last Admin: 09/03/24 14:39 Dose: 2 mg Nicotine (Nicotine 14 Mg Patch) 1 patch TRANSDERMA DAILY [facility] Last Admin: 09/03/24 09:01 Dose: 1 patch Ondansetron HCl (Ondansetron 2 Mg/Ml Sdv 2 Ml) 4 mg IVP Q8H PRN PRN Reason: vomiting, or N/V if npo Pantoprazole Sodium (Pantoprazole Dr 40 Mg Tablet) 40 mg PO DAILY [facility] Last Admin: 09/03/24 09:00 Dose: 40 mg Potassium Chloride (Potassium Chloride Er 20 Meq Tablet) 20 meq PO Q24H [facility] Last Admin: 09/03/24 06:25 Dose: 20 meq Ranolazine (Ranolazine (12hr) 500 Mg Tablet) 500 mg PO BID [facility] Last Admin: 08/31/24 22:27 Dose: 500 mg Spironolactone (Spironolactone 25 Mg Tablet) 25 mg PO DAILY [facility] Last Admin: 09/02/24 08:48 Dose: 25 mg Tamsulosin HCl (Tamsulosin 0.4 Mg Capsule) 0.4 mg PO DAILY [facility] Last Admin: 09/03/24 09:00 Dose: 0.4 mg Vitals/I&O/Wt Last Vital Signs Temp 97.6 F 09/04/24 16:00 Pulse 71 09/04/24 18:00 Resp 19 H 09/04/24 18:00 BP 148/85 09/04/24 18:00 Pulse Ox 95 09/04/24 18:00 O2 Del Method Room Air 09/04/24 10:22 FiO2 21 09/03/24 08:17 09/04/24 09/04/24 09/04/24 06:59 14:59 22:59 Intake Total 493.05 / 2546.037 1487.6409 / 1487.6409 Output Total 1900 / 7125 1999 Balance -1406.95 / -4578.963 1487.6409 / 1487.6409 -1999 / 512.3591 Weight last 48 hrs Weight 268 lb 6.4 oz Weight 276 lb 10.882 oz Physical Exam Const: OTHER: GENERAL: Patient is alert, awake and oriented x3. HEART: Regular S1 and S2. No murmur, rub or gallop. LUNGS: Clear to auscultate bilaterally. CENTRAL NERVOUS SYSTEM: Grossly nonfocal. EXTREMITIES: Lower extremities both leg bilateral 3-4+ edema with blisters, right leg has cellulitis, has dopplerable posterior tibial pulse in the right leg. Denies any pain at rest Urinary Catheter Management: Burciaga: Cath Placed During This Visit: yes Reason for Continuing Indwelling Catheter: Accurate Measurement of Urinary Output in Critically Ill Patients Urinary Catheter Date of Insertion: 08/31/24 Urinary Catheter Time of Insertion: 19:00 Data 09/04/24 06:40 09/04/24 06:40 Micro: Microbiology 09/03/24 16:00 Gram Stain - Final Sputum - Expectorated Sputum A&P Assessment and plan (1) Ischemic cardiomyopathy: Continue current regimen including dobutamine and diuresis (2) PAD (peripheral artery disease): patient does not have acute limb ischemia lower extremity edema cellulitis and blisters contributing to swelling of the both leg and pain. Patient has dopplerable posterior tibial pulse in the right leg. Continue to diurese continue to apply antibiotics use IV antibiotics and wound care On today's visit 09/04/2024 right leg cellulitis edema continues to improve continue antibiotics continue diuresis, patient continues to have good pulses Attestations Medical Necessity Statement*: Require continuation of hospitalization for evaluation and care Coding Level of Care Code Acute Code for [facility] Diagnoses Ischemic cardiomyopathy I25.5 PAD (peripheral artery disease) I73.9
[2024-09-04 21:06] LABS: Partial Thromboplastin Time 69.7 SECONDS (23.9-36.7)
[2024-09-04 21:39] LABS: Glucose Point of Care 154 mg/dL (70-110)
[2024-09-04] MEDS: efferdent effervescent 1 EACH DENTAL (21:48)
[2024-09-04] MEDS: insulin lispro 100 unit/1 mL SUBCUT (21:48)
[2024-09-05] VITALS (28 sets, daily range): BP systolic 119–177; BP diastolic 60–118; PULSE 68–80; RESP 15–27; TEMP 36.4–36.9; O2SAT 90–99
[2024-09-05] MEDS: FUROsemide 10 mg/mL SDV 10mL 60 MG IVP ×3 (00:56→23:46)
[2024-09-05] MEDS: HYDROcodone-acetaminophen 10-325 mg Tablet 1 TAB PO ×3 (00:56→21:08)
[2024-09-05] MEDS: piperacillin-tazobactam 3.375 GM in sodium chloride 0.9% (plus) 50 ML IV ×3 (01:36→17:11)
[2024-09-05] MEDS: ondansetron 2 mg/ML SDV 2 mL 4 MG IVP (02:25)
[2024-09-05 05:41] LABS: Partial Thromboplastin Time 66.5 SECONDS (23.9-36.7)
[2024-09-05 06:01] LABS: Alanine Aminotransferase 16 U/L (0-41); Albumin Level 2.6 g/dL (3.5-5.2); Alkaline Phosphatase 272 U/L (40-130); Aspartate Amino Transferase 12 U/L (0-40); Blood Urea Nitrogen 22 mg/dL (6-20); Carbon Dioxide 28 mmol/L (22-29); Chloride 93 mmol/L (98-107); Creatinine Clr Calc Pharmacy 112.9184; Globulin 2.3 g/dL (1.3-4.6); Glucose 105 mg/dL (65-115); Magnesium 1.6 mg/dL (1.7-2.3); Osmolality Calculated 278 mOsm/kg (285-295); Phosphorus 2.3 mg/dL (2.5-4.5); Sodium 132 mmol/L (136-145); Total Bilirubin 1.1 mg/dL (0.15-1.2); Total Protein 4.9 g/dL (6.6-8.7)
[2024-09-05 08:24] LABS: Glucose Point of Care 114 mg/dL (70-110)
[2024-09-05] MEDS: pantoprazole DR 40 mg Tablet PO (08:28)
[2024-09-05] MEDS: phosphorus 250 mg Tablet PO ×2 (08:28→17:11)
[2024-09-05] MEDS: heparin drip 25,000 UNIT/500 ML PREMIX 27 UNIT IV (08:28)
[2024-09-05] MEDS: clopidogrel 75 mg Tablet PO (08:28)
[2024-09-05] MEDS: DOBUTamine drip 500 MG/250 ML PREMIX 9.68 MG IV (08:28)
[2024-09-05] MEDS: duloxetine 20 mg Capsule PO ×2 (08:29→17:11)
[2024-09-05] MEDS: nicotine 14 mg Patch 1 PATCH TRANSDERMA (08:29)
[2024-09-05] MEDS: tamsulosin 0.4 mg Capsule PO (08:29)
[2024-09-05] MEDS: vancomycin 1,500 MG/300 ML PIGGYBACK 200 MG IV (09:13)
[2024-09-05] MEDS: aspirin 81 mg EC Tablet PO (09:13)
--- NOTE | 2024-09-05 11:43 | XR_ITS ---
WS: [id number] Exam: XR chest 1V portable [id number] Date/Time of Exam: 09/05/2024 11:49 AM Reason For Exam: SOB Comparison 09/02/2024. The lungs are fully expanded. No consolidating infiltrates. Mild cardiac enlargement with increased p ulmonary vascularity. No pleural effusions. Bony structures are intact. The mediastinum is normal in contour. XR/XR chest 1V portable [id number] IMPRESSION: 1. Mild cardiac enlargement with increased pulmonary vascularity.
[2024-09-05 12:50] LABS: Glucose Point of Care 133 mg/dL (70-110)
[2024-09-05] MEDS: ipratropium-albuterol 3 mL Neb INHALATION (13:11)
[2024-09-05 13:30] LABS: Osmolality Urine 281 mOsm/kg (50-1200)
--- NOTE | 2024-09-05 14:07 | P.PN_ITS ---
<Statement entered by Nir Burnham MD - 09/05/24 22:23> Patient was evaluated and cared for in conjunction with an advanced practice practitioner. I personally examined the patient and reviewed the chart and all pertinent data including imaging, telemetry, and laboratory results. I discussed the patient in detail with the advanced practice practitioner. Please see their note for complete H&P testing result and agreed upon plan of care for the patient. Subjective 2 Subjective: Patient continues to improve urine output on current regimen. Patient has been on dobutamine for over 48 hours. Vital signs are stable. Leg continues to have palpable posterior tibial pulse on the right improved with heparin drip and decrease in right lower extremity swelling. No complaints of pain at this time. Bilateral lower extremities are warm with 2-second capillary refill no signs of acute ischemia Medications: Reviewed: Yes Vitals/I&O/Wt Last Vital Signs Temp 98.4 F 09/05/24 08:00 Pulse 75 09/05/24 13:15 Resp 16 09/05/24 13:05 BP 158/81 09/05/24 11:00 Pulse Ox 98 09/05/24 13:05 O2 Del Method Nasal Cannula 09/05/24 13:05 O2 Flow Rate 2 09/05/24 13:05 FiO2 21 09/03/24 08:17 09/04/24 09/05/24 09/05/24 22:59 06:59 14:59 Intake Total 739.55 / 2227.1909 735 / 2962.1909 822.298 / 822.298 Output Total 1999 1150 / 3150 Balance -1260.45 / 227.1909 -415 / -187.8091 822.298 / 822.298 Weight last 48 hrs Weight 267 lb 4.8 oz Weight 268 lb 6.4 oz Physical Exam 2 Const: OTHER: GENERAL: Patient is alert, awake and oriented x3. HEART: Regular S1 and S2. No murmur, rub or gallop. LUNGS: Clear to auscultate bilaterally. CENTRAL NERVOUS SYSTEM: Grossly nonfocal. EXTREMITIES: Lower extremities both leg bilateral 3-4+ edema with blisters, right leg has cellulitis, has dopplerable posterior tibial pulse in the right leg. Denies any pain at rest Urinary Catheter Management: Burciaga: Cath Placed During This Visit: yes Reason for Continuing Indwelling Catheter: Accurate Measurement of Urinary Output in Critically Ill Patients Urinary Catheter Date of Insertion: 08/31/24 Urinary Catheter Time of Insertion: 19:00 Data 09/04/24 06:40 09/05/24 05:16 Micro: Microbiology 09/03/24 16:00 Gram Stain - Final Sputum - Expectorated Sputum Sputum Culture - Preliminary A&P Assessment and plan (1) Ischemic cardiomyopathy: Continue current regimen including diuresis. Patient has been on dobutamine for over 48 hours will hold at this time and see how patient responds. (2) PAD (peripheral artery disease): patient does not have acute limb ischemia lower extremity edema cellulitis and blisters contributing to swelling of the both leg and pain. Patient has dopplerable posterior tibial pulse in the right leg. Continue to diurese continue to apply antibiotics use IV antibiotics and wound care Plan As stated above. Will transition patient from heparin drip to Lovenox. Continue with current diuresis regimen. Attestations 2 Medical Necessity Statement*: Require continuation of hospitalization for evaluation and care Coding Level of Care Code Acute Code for [facility] Diagnoses Ischemic cardiomyopathy I25.5 PAD (peripheral artery disease) I73.9
[2024-09-05] MEDS: enoxaparin 120 mg/0.8 mL Syringe SUBCUT (14:47)
--- NOTE | 2024-09-05 14:50 | PC.SOCIAL ---
IMM Update pg 2 of IMM Updated and reviewed w/ patient. Copy provided and copy dated, initialed and placed in chart.
--- NOTE | 2024-09-05 14:51 | PM.PN ---
Subjective Subjective: seen this am feels better 2L neg since admission dobutamine stopped has developed cough non productive Vitals/I&O/Wt Last Vital Signs Temp 98.5 F 09/05/24 12:00 Pulse 75 09/05/24 14:00 Resp 21 H 09/05/24 14:00 BP 131/66 09/05/24 14:00 Pulse Ox 99 09/05/24 14:00 O2 Del Method Nasal Cannula 09/05/24 13:05 O2 Flow Rate 2 09/05/24 13:05 FiO2 21 09/03/24 08:17 09/04/24 09/05/24 09/05/24 22:59 06:59 14:59 Intake Total 739.55 / 2227.1909 735 / 2962.1909 1276.098 / 1276.098 Output Total 1999 / 1999 1150 / 3150 Balance -1260.45 / 227.1909 -415 / -187.8091 1276.098 / 1276.098 Weight last 48 hrs Weight 121.245 kg Weight 121.744 kg Physical Exam Narrative: General: Alert oriented x3, patient seen laying in bed, obese large body habitus HEENT: Normocephalic, atraumatic, EOMI, breathing room air Cardio: Regular rate rhythm, normal S1-S2, Respiratory: Clear to auscultation bilaterally no wheezes or rhonchi at this time. GI: Abdomen soft, nontender, distended obese rounded, bowel sounds + Behavior: Poor historian Extremities: 2+ bilateral pitting edema up to thighs with numerous excoriations bilateral lower extremities and weeping lesions. Yellow fluid draining from right leg. Edema has slightly improved. Able to Doppler pulses bilateral feet. Urinary Catheter Management: Burciaga: Cath Placed During This Visit: yes Reason for Continuing Indwelling Catheter: Accurate Measurement of Urinary Output in Critically Ill Patients Urinary Catheter Date of Insertion: 08/31/24 Urinary Catheter Time of Insertion: 19:00 Data 09/04/24 06:40 09/05/24 05:16 Micro: Microbiology 09/03/24 16:00 Gram Stain - Final Sputum - Expectorated Sputum Sputum Culture - Preliminary A&P Assessment and plan (1) Benign essential HTN: (2) CHF (congestive heart failure): (3) Ischemic cardiomyopathy: (4) CAD (coronary artery disease): (5) PAD (peripheral artery disease): (6) Hypercholesteremia: (7) GERD (gastroesophageal reflux disease): (8) COPD (chronic obstructive pulmonary disease): Qualifiers: COPD type: emphysema Emphysema type: centrilobular Qualified Code(s): J43.2 - Centrilobular emphysema (9) Obstructive sleep apnea: (10) Bilateral edema of lower extremity: (11) Cellulitis: Plan #Acute on chronic congestive systolic heart failure exacerbation #Diabetes mellitus, insulin-dependent #Cellulitis right lower extremity #Acute limb ischemia?ruled out. #Peripheral arterial disease #Dyslipidemia, hypertension #Peripheral neuropathy #GERD #Coronary artery disease status post PCI #History of STEMI, NSTEMI ? Patient did get a 60 IV Lasix in ER. Will place on 60 IV twice daily going forward. ? BNP 27,000. Will check lactic acid ? Check sputum culture Gram stain, patient did complain of expectorating brownish sputum. ? Check blood cultures, check urine culture ? Will place Burciaga catheter for accurate output. Does have a history of BPH. ? Patient on room air at this time. Will add DuoNeb every 6 hours as needed. ? Will check arterial Dopplers bilaterally and venous Dopplers ? Chest x-ray does show peripheral mid to lower left lung hazy opacities compatible with atelectasis or developing infection in the proper clinical setting. ? Will place on vancomycin and Zosyn for possible pneumonia and to cover for lower extremity cellulitis. Will have pharmacy to dose medications. ? Continue patient on home dose Lantus 70 units daily with 30 units at bedtime. Will add moderate dose intensity sliding scale insulin. ? Check hemoglobin A1c ? Will check C-reactive protein, procalcitonin ? Will hold off on septic bolus at this time. Patient does not meet sepsis criteria. He is hemodynamically stable. White count is 13,000. ? He would like to be a full code. -I will hold home Entresto ranolazine at this time. Continue Imdur, aspirin, Plavix, carvedilol. ? Lasix 60 IV twice daily. Add potassium 20 mEq daily. -Patient hyponatremic with sodium 128 most likely secondary to hypervolemia. -Check echocardiogram -EKG without any acute ischemic changes. Does have first-degree AV block. Full code DVT prophylaxis: Heparin subcu twice daily Patient has multiple comorbid conditions and is experiencing lower extremity cellulitis, possible pneumonia, heart failure exacerbation. He will most likely require greater than 72-hour stay for management of above issues. 09/01/2024 - arterial dopplers Abnormal arterial waveforms in both lower extremities suggesting hemodynamically significant stenoses without total occlusion. Correlation with CT angiography and vascular evaluation is recommended. - No sonographic evidence of deep venous thrombosis in either lower extremity. CXR shows: Peripheral mid to lower left lung hazy opacities compatible with atelectasis or developing infection in the proper clinical setting. - sodium 131, most likely 2/2 to hypervolemia - cr 1.2 today lactic acid 2.7. bandemia present. - sepsis 2/2 to pna, vs le cellulitis - place on ns @ 75 cc/hr gentle fluid hydration. hold lasix for now - check ct chest abd pelvis, right leg, abd aorta run-off - cardiology consult. will discuss regarding dobutamine gtt? - hold entresto, hold ranolzaine. - bp soft, reduce imdur to 60 daily - cut down coreg to 6.25 bid - check echo, pending. - lactic acid possibly elevated due to worsening heart failure, vs infection. pt may require icu transfer for dobutamine gtt and lasix. Pt did get lasix 60 iv 3 doses since admission, and did not have adequate urine output. last echo shows EF 40% 202209/02/2024 - - arterial dopplers Abnormal arterial waveforms in both lower extremities suggesting hemodynamically significant stenoses without total occlusion. Correlation with CT angiography and vascular evaluation is recommended. - No sonographic evidence of deep venous thrombosis in either lower extremity. CXR shows: Peripheral mid to lower left lung hazy opacities compatible with atelectasis or developing infection in the proper clinical setting. ? Patient has evidence of right lower limb ischemia. Leg has developed worsening blisters, weeping, worsening redness. Initial troponin 185, lactic acid 3.8 yesterday. Repeat lactic acid pending from this morning. ? Sodium worsened to 125, creatinine 1.4. Patient did receive contrast yesterday for CT abdomen runoff. ? CT aorta runoff shows right superficial femoral artery occluded at origin, patent iliac artery system and common femoral arteries bilaterally. Poor runoff to the ankles bilaterally with no evidence of posterior tibial arteries. Diffuse body wall anasarca. ? Will place patient on heparin drip. ? Discussed with cardiology. senior sql database developer will be evaluating patient to make final determination. Patient may need vascular surgery referral. ? Continue Lasix 60 IV every 8 hours ? Placed on dobutamine drip low-dose. Patient currently on Levophed 4 mics per hour. Has been hypotensive. ? Stop spironolactone ? Stop Lantus. He has been hypoglycemic overnight. ? He does have worsening kidney function. ? Continue renally dosed vancomycin and Zosyn at this time. ? Blood cultures pending ? Carvedilol 3.125 twice daily ordered however held this morning secondary to hypotension. ? Continue aspirin, Plavix. ? Patient has multiple comorbid conditions at this time and will benefit from tertiary care center for disability approach of his medical issues. As per recommendations from cardiology will attempt to transfer. ? Echo from this admission did show worsening EF of 30%. 09/03/2024 -Right lower limb acute ischemia ruled out. ? Patient improving. Continue dobutamine drip at 2.5/h, continue Lasix 60 IV 3 times daily. ? Replete potassium ? Continue to hold nephrotoxics ? Continue to hold Lantus. Continue insulin sliding scale moderate dose intensity ? Continue vancomycin and Zosyn ? Blood cultures pending, negative to date ? Continue aspirin Plavix, heparin drip. ? Platelets 62,000. Continue to monitor. Will send over HIT panel. Check heparin-induced antibodies ? Check CBC at 6 PM. If platelets further declining. Will stop heparin drip and switch to argatroban. ? Nephrology following. ? Lactic acid is normalized. Cardiology following. No acute need to transfer patient at this time. Limb ischemia ruled out. Echo from this admission did show worsening EF of 30% 09/04/2024 - platelets stable at 62K, no further drop - Continue dobutamine, continue to diurese - switch to lasix 40 IV BID - recheck labs in AM - will consider diamox tomorrow - EF 30% - continue current managment ? Continue vancomycin and Zosyn ? Blood cultures pending, negative to date ? Continue aspirin Plavix, heparin drip. - order phosphorus orally 09/05/2024 - cbc pending - stop dobutamine, continue to diurese - continue lasix 40 IV BID - recheck labs in AM - EF 30% - continue current managment ? Continue vancomycin and Zosyn ? Blood cultures pending, negative to date ? Continue aspirin Plavix, heparin drip stopped, pt switched to therapeutic lovenox - check phosphorus, cbc cmp in am - discussed plan with cardiology going forward Attestations Medical Necessity Statement*: Greater than 2 midnight stay for management of multiple medical problems at this time. Diagnoses Benign essential HTN I10 CHF (congestive heart failure) I50.9 Ischemic cardiomyopathy I25.5 CAD (coronary artery disease) I25.10 PAD (peripheral artery disease) I73.9 Hypercholesteremia E78.00 GERD (gastroesophageal reflux disease) K21.9 Centrilobular emphysema J43.2 COPD type: emphysema Emphysema type: centrilobular Obstructive sleep apnea G47.33 Bilateral edema of lower extremity R60.0 Cellulitis L03.90
[2024-09-05 16:16] LABS: Osmolality Serum 275 mOsm/kg (278-305)
[2024-09-05 16:25] LABS: Basophils % 0.1 %; Eosinophils % 0.4 %; Hematocrit 43.4 % (37-53); Lymphocytes # 0.7 10^3/uL (0.8-4.8); Lymphocytes % 8.5 %; Mean Corpuscular HGB Conc 32.3 g/dL (30-55); Mean Corpuscular Hemoglobin 27.7 pg (27-33); Mean Corpuscular Volume 85.9 fl (82-101); Monocytes # 0.3 10^3/uL (0.2-0.9); Monocytes % 4.1 %; Neutrophils # 7.02 10^3/uL (1.8-7.7); Neutrophils % 85.7 %; Nucleated Red Blood Cells % 0 %; Platelet Count 49 10^3/cmm (157-399); Red Blood Count 5.05 10^6/uL (3.85-5.65); Red Cell Distribution Width 17.4 % (12.1-15.1)
[2024-09-05 16:55] LABS: Slide Review Slide Review Perform
[2024-09-05 17:13] LABS: Glucose Point of Care 121 mg/dL (70-110)
[2024-09-05 21:04] LABS: Glucose Point of Care 150 mg/dL (70-110)
[2024-09-05] MEDS: insulin lispro 100 unit/1 mL SUBCUT (21:04)
[2024-09-06] VITALS (27 sets, daily range): BP systolic 118–149; BP diastolic 61–88; PULSE 59–86; RESP 13–27; TEMP 36.6–37.2; O2SAT 91–100
[2024-09-06] MEDS: piperacillin-tazobactam 3.375 GM in sodium chloride 0.9% (plus) 50 ML IV ×3 (02:15→17:41)
[2024-09-06] MEDS: enoxaparin 120 mg/0.8 mL Syringe SUBCUT (03:20)
[2024-09-06] MEDS: vancomycin 1,500 MG/300 ML PIGGYBACK 200 MG IV (03:20)
[2024-09-06] MEDS: HYDROcodone-acetaminophen 10-325 mg Tablet 1 TAB PO ×3 (05:28→20:07)
[2024-09-06 05:41] LABS: Basophils % 0.1 %; Eosinophils # 0.1 10^3/uL (0.0-0.8); Eosinophils % 0.8 %; Hematocrit 45.3 % (37-53); Lymphocytes % 14.2 %; Mean Corpuscular HGB Conc 31.8 g/dL (30-55); Mean Corpuscular Hemoglobin 27.9 pg (27-33); Mean Corpuscular Volume 87.6 fl (82-101); Mean Platelet Volume 10.8 fL (7.4-10.4); Monocytes # 0.3 10^3/uL (0.2-0.9); Monocytes % 4.6 %; Neutrophils # 5.59 10^3/uL (1.8-7.7); Neutrophils % 78.2 %; Nucleated Red Blood Cells % 0 %; Platelet Count 52 10^3/cmm (157-399); Red Blood Count 5.17 10^6/uL (3.85-5.65); Red Cell Distribution Width 17.5 % (12.1-15.1); White Blood Count 7.16 10^3/uL (3.29-11.43)
[2024-09-06 06:10] LABS: Alanine Aminotransferase 16 U/L (0-41); Albumin Level 2.9 g/dL (3.5-5.2); Alkaline Phosphatase 261 U/L (40-130); Aspartate Amino Transferase 15 U/L (0-40); Blood Urea Nitrogen 25 mg/dL (6-20); Calcium 8.3 mg/dL (8.5-10.5); Carbon Dioxide 27 mmol/L (22-29); Chloride 94 mmol/L (98-107); Creatinine Clr Calc Pharmacy 127.0332; Globulin 2.7 g/dL (1.3-4.6); Glomerular Filtration Rate 99.6 mL/min (90-130); Glucose 111 mg/dL (65-115); Osmolality Calculated 281 mOsm/kg (285-295); Phosphorus 2.8 mg/dL (2.5-4.5); Sodium 133 mmol/L (136-145); Total Bilirubin 1.1 mg/dL (0.15-1.2); Total Protein 5.6 g/dL (6.6-8.7)
[2024-09-06 06:11] LABS: Slide Review Slide Review Perform
[2024-09-06 06:12] LABS: Magnesium 1.9 mg/dL (1.7-2.3)
[2024-09-06 06:25] LABS: Anion Gap 16.1 (5-19); Potassium 4.1 mmol/L (3.5-5.1)
[2024-09-06 06:29] LABS: Vancomycin Random 53.4 ug/mL (20.0-40.0)
[2024-09-06 07:56] LABS: Glucose Point of Care 123 mg/dL (70-110)
[2024-09-06] MEDS: aspirin 81 mg EC Tablet PO (08:14)
[2024-09-06] MEDS: pantoprazole DR 40 mg Tablet PO (08:14)
[2024-09-06] MEDS: acetaminophen 325 mg Tablet 650 MG PO ×2 (08:14→14:51)
[2024-09-06] MEDS: tamsulosin 0.4 mg Capsule PO (08:14)
[2024-09-06] MEDS: clopidogrel 75 mg Tablet PO (08:14)
[2024-09-06] MEDS: duloxetine 20 mg Capsule PO ×2 (08:14→17:42)
[2024-09-06] MEDS: nicotine 14 mg Patch 1 PATCH TRANSDERMA (08:15)
[2024-09-06 10:48] LABS: Glucose Point of Care 151 mg/dL (70-110)
[2024-09-06] MEDS: FUROsemide 10 mg/mL SDV 10mL 80 MG IVP ×2 (12:33→23:16)
[2024-09-06] MEDS: insulin lispro 100 unit/1 mL SUBCUT (12:33)
--- NOTE | 2024-09-06 13:09 | P.PN_ITS ---
Subjective 2 Subjective: Seen this morning, platelets 52,000. HIT panel ordered 3 L negative since admission. Needs to be in a greater net negative balance. Bilateral lower extremity still weeping Abdomen with runoff CTA discussed with cardiology. Breathing improved, patient on 2 L nasal cannula saturating 99%. Vitals/I&O/Wt Last Vital Signs Temp 98.9 F 09/06/24 12:00 Pulse 68 09/06/24 12:00 Resp 18 09/06/24 12:00 BP 118/61 09/06/24 12:00 Pulse Ox 96 09/06/24 12:00 O2 Del Method Nasal Cannula 09/06/24 08:53 O2 Flow Rate 2 09/06/24 08:53 FiO2 21 09/03/24 08:17 09/05/24 09/06/24 09/06/24 22:59 06:59 14:59 Intake Total 240 / 1516.098 170 / 3840.973 6604 / 1010 Output Total 1100 / 1100 950 / 2050 Balance -860 / 416.098 -780 / -243.360 5962 / 1010 Weight last 48 hrs Weight 122.5 kg Weight 121.245 kg Physical Exam 2 Narrative: General: Alert oriented x3, patient seen laying in bed, obese large body habitus HEENT: Normocephalic, atraumatic, EOMI, breathing room air Cardio: Regular rate rhythm, normal S1-S2, Respiratory: Clear to auscultation bilaterally no wheezes or rhonchi at this time. GI: Abdomen soft, nontender, distended obese rounded, bowel sounds + Behavior: Poor historian Extremities: 3+ bilateral pitting edema up to thighs with numerous excoriations bilateral lower extremities and weeping lesions. Yellow fluid draining from right leg. Edema has slightly improved. Able to Doppler pulses bilateral feet. Urinary Catheter Management: Burciaga: Cath Placed During This Visit: yes Reason for Continuing Indwelling Catheter: Accurate Measurement of Urinary Output in Critically Ill Patients Urinary Catheter Date of Insertion: 08/31/24 Urinary Catheter Time of Insertion: 19:00 Data 09/06/24 04:57 09/06/24 04:57 Micro: Microbiology 09/05/24 13:18 Sputum Culture - Preliminary Sputum - Expectorated Sputum 09/03/24 16:00 Gram Stain - Final Sputum - Expectorated Sputum Sputum Culture - Preliminary Gram Negative Rods 08/31/24 17:50 Blood Culture - Final Blood NO GROWTH AFTER 5 DAYS 08/31/24 17:54 Blood Culture - Final Blood NO GROWTH AFTER 5 DAYS A&P Assessment and plan (1) Benign essential HTN: (2) CHF (congestive heart failure): (3) Ischemic cardiomyopathy: (4) CAD (coronary artery disease): (5) PAD (peripheral artery disease): (6) Hypercholesteremia: (7) GERD (gastroesophageal reflux disease): (8) COPD (chronic obstructive pulmonary disease): Qualifiers: COPD type: emphysema Emphysema type: centrilobular Qualified Code(s): J43.2 - Centrilobular emphysema (9) Obstructive sleep apnea: (10) Bilateral edema of lower extremity: (11) Cellulitis: Plan #Acute on chronic congestive systolic heart failure exacerbation #Diabetes mellitus, insulin-dependent #Cellulitis right lower extremity #Acute limb ischemia?ruled out. #Peripheral arterial disease #Dyslipidemia, hypertension #Peripheral neuropathy #GERD #Coronary artery disease status post PCI #History of STEMI, NSTEMI ? Patient did get a 60 IV Lasix in ER. Will place on 60 IV twice daily going forward. ? BNP 27,000. Will check lactic acid ? Check sputum culture Gram stain, patient did complain of expectorating brownish sputum. ? Check blood cultures, check urine culture ? Will place Burciaga catheter for accurate output. Does have a history of BPH. ? Patient on room air at this time. Will add DuoNeb every 6 hours as needed. ? Will check arterial Dopplers bilaterally and venous Dopplers ? Chest x-ray does show peripheral mid to lower left lung hazy opacities compatible with atelectasis or developing infection in the proper clinical setting. ? Will place on vancomycin and Zosyn for possible pneumonia and to cover for lower extremity cellulitis. Will have pharmacy to dose medications. ? Continue patient on home dose Lantus 70 units daily with 30 units at bedtime. Will add moderate dose intensity sliding scale insulin. ? Check hemoglobin A1c ? Will check C-reactive protein, procalcitonin ? Will hold off on septic bolus at this time. Patient does not meet sepsis criteria. He is hemodynamically stable. White count is 13,000. ? He would like to be a full code. -I will hold home Entresto ranolazine at this time. Continue Imdur, aspirin, Plavix, carvedilol. ? Lasix 60 IV twice daily. Add potassium 20 mEq daily. -Patient hyponatremic with sodium 128 most likely secondary to hypervolemia. -Check echocardiogram -EKG without any acute ischemic changes. Does have first-degree AV block. Full code DVT prophylaxis: Heparin subcu twice daily Patient has multiple comorbid conditions and is experiencing lower extremity cellulitis, possible pneumonia, heart failure exacerbation. He will most likely require greater than 72-hour stay for management of above issues. 09/01/2024 - arterial dopplers Abnormal arterial waveforms in both lower extremities suggesting hemodynamically significant stenoses without total occlusion. Correlation with CT angiography and vascular evaluation is recommended. - No sonographic evidence of deep venous thrombosis in either lower extremity. CXR shows: Peripheral mid to lower left lung hazy opacities compatible with atelectasis or developing infection in the proper clinical setting. - sodium 131, most likely 2/2 to hypervolemia - cr 1.2 today lactic acid 2.7. bandemia present. - sepsis 2/2 to pna, vs le cellulitis - place on ns @ 75 cc/hr gentle fluid hydration. hold lasix for now - check ct chest abd pelvis, right leg, abd aorta run-off - cardiology consult. will discuss regarding dobutamine gtt? - hold entresto, hold ranolzaine. - bp soft, reduce imdur to 60 daily - cut down coreg to 6.25 bid - check echo, pending. - lactic acid possibly elevated due to worsening heart failure, vs infection. pt may require icu transfer for dobutamine gtt and lasix. Pt did get lasix 60 iv 3 doses since admission, and did not have adequate urine output. last echo shows EF 40% 202209/02/2024 - - arterial dopplers Abnormal arterial waveforms in both lower extremities suggesting hemodynamically significant stenoses without total occlusion. Correlation with CT angiography and vascular evaluation is recommended. - No sonographic evidence of deep venous thrombosis in either lower extremity. CXR shows: Peripheral mid to lower left lung hazy opacities compatible with atelectasis or developing infection in the proper clinical setting. ? Patient has evidence of right lower limb ischemia. Leg has developed worsening blisters, weeping, worsening redness. Initial troponin 185, lactic acid 3.8 yesterday. Repeat lactic acid pending from this morning. ? Sodium worsened to 125, creatinine 1.4. Patient did receive contrast yesterday for CT abdomen runoff. ? CT aorta runoff shows right superficial femoral artery occluded at origin, patent iliac artery system and common femoral arteries bilaterally. Poor runoff to the ankles bilaterally with no evidence of posterior tibial arteries. Diffuse body wall anasarca. ? Will place patient on heparin drip. ? Discussed with cardiology. occupational medicine physician will be evaluating patient to make final determination. Patient may need vascular surgery referral. ? Continue Lasix 60 IV every 8 hours ? Placed on dobutamine drip low-dose. Patient currently on Levophed 4 mics per hour. Has been hypotensive. ? Stop spironolactone ? Stop Lantus. He has been hypoglycemic overnight. ? He does have worsening kidney function. ? Continue renally dosed vancomycin and Zosyn at this time. ? Blood cultures pending ? Carvedilol 3.125 twice daily ordered however held this morning secondary to hypotension. ? Continue aspirin, Plavix. ? Patient has multiple comorbid conditions at this time and will benefit from tertiary care center for disability approach of his medical issues. As per recommendations from cardiology will attempt to transfer. ? Echo from this admission did show worsening EF of 30%. 09/03/2024 -Right lower limb acute ischemia ruled out. ? Patient improving. Continue dobutamine drip at 2.5/h, continue Lasix 60 IV 3 times daily. ? Replete potassium ? Continue to hold nephrotoxics ? Continue to hold Lantus. Continue insulin sliding scale moderate dose intensity ? Continue vancomycin and Zosyn ? Blood cultures pending, negative to date ? Continue aspirin Plavix, heparin drip. ? Platelets 62,000. Continue to monitor. Will send over HIT panel. Check heparin-induced antibodies ? Check CBC at 6 PM. If platelets further declining. Will stop heparin drip and switch to argatroban. ? Nephrology following. ? Lactic acid is normalized. Cardiology following. No acute need to transfer patient at this time. Limb ischemia ruled out. Echo from this admission did show worsening EF of 30% 09/04/2024 - platelets stable at 62K, no further drop - Continue dobutamine, continue to diurese - switch to lasix 40 IV BID - recheck labs in AM - will consider diamox tomorrow - EF 30% - continue current managment ? Continue vancomycin and Zosyn ? Blood cultures pending, negative to date ? Continue aspirin Plavix, heparin drip. - order phosphorus orally 09/05/2024 - cbc pending - stop dobutamine, continue to diurese - continue lasix 40 IV BID - recheck labs in AM - EF 30% - continue current managment ? Continue vancomycin and Zosyn ? Blood cultures pending, negative to date ? Continue aspirin Plavix, heparin drip stopped, pt switched to therapeutic lovenox - check phosphorus, cbc cmp in am - discussed plan with cardiology going forward 09/06/2024 -Switch to Lasix 80 IV twice daily. If urine output does not increase may consider adding dobutamine. Patient needs to be in a higher net negative balance. Continue fluid restriction. ? EF 30% ? Continue vancomycin and Zosyn Respiratory culture positive, final is pending Continue aspirin Plavix Stop heparin drip, stop therapeutic Lovenox. Continue to monitor platelet count. If evidence of thrombosis will need to place patient on Eliquis. Discussed with hematology. ? Plan for peripheral angiogram upcoming Thursday as long as platelet count higher. Discussed with cardiology and went over CT aorta runoff. Continue Solu-Medrol 40 daily Wean off oxygen as able Attestations 2 Medical Necessity Statement*: Greater than 2 midnight stay for management of multiple medical problems at this time. Diagnoses Benign essential HTN I10 CHF (congestive heart failure) I50.9 Ischemic cardiomyopathy I25.5 CAD (coronary artery disease) I25.10 PAD (peripheral artery disease) I73.9 Hypercholesteremia E78.00 GERD (gastroesophageal reflux disease) K21.9 Centrilobular emphysema J43.2 COPD type: emphysema Emphysema type: centrilobular Obstructive sleep apnea G47.33 Bilateral edema of lower extremity R60.0 Cellulitis L03.90
[2024-09-06 17:26] LABS: Glucose Point of Care 112 mg/dL (70-110)
--- NOTE | 2024-09-06 19:56 | P.PN_ITS ---
<Statement entered by Nir Burnham MD - 09/07/24 09:02> Patient was evaluated and cared for in conjunction with an advanced practice practitioner. I personally examined the patient and reviewed the chart and all pertinent data including imaging, telemetry, and laboratory results. I discussed the patient in detail with the advanced practice practitioner. Please see their note for complete H&P testing result and agreed upon plan of care for the patient. Patient appeared to be resting fine he has lower extremity edema which has reduced but still there, he has dopplerable right foot posterior tibial. His legs are warm moist. Thrombocytopenia noted GENERAL: Patient is alert, awake and oriented x3. HEART: Regular S1 and S2. No murmur, rub or gallop. LUNGS: Clear to auscultate bilaterally. CENTRAL NERVOUS SYSTEM: Grossly nonfocal. EXTREMITIES: 4+ edema bilaterally cellulitis on the right leg with dopplerable posterior tibial on the right leg Assessment and plan Acute decompensated systolic heart failure on chronic Cellulitis of the right leg Peripheral arterial disease with chronically occluded right SFA Thrombocytopenia Continue antibiotic Since patient continues to have good pulse and because of the fact he has developed thrombocytopenia and rule out heparin-induced thrombocytopenia, once platelets stable we will plan for peripheral angiogram and possible intervention on the right leg. It appeared to me patient may have contraction alkalosis we will back off on diuretics, could be third spacing secondary to hypoproteinemia Subjective 2 Subjective: Patinet doing ok today. Still has good UOP, but overall balance is still only about 300 negative. Patient still has severe swelling to bilateral lower extremities. Continues to have low platelet counts. Leg still w/o s/s of acute ischemia with good cap refill. Medications: Reviewed: Yes Vitals/I&O/Wt Last Vital Signs Temp 98.8 F 09/06/24 16:00 Pulse 70 09/06/24 19:00 Resp 18 09/06/24 19:00 BP 127/64 09/06/24 19:00 Pulse Ox 93 09/06/24 19:00 O2 Del Method Nasal Cannula 09/06/24 08:53 O2 Flow Rate 2 09/06/24 08:53 FiO2 21 09/03/24 08:17 09/06/24 09/06/24 09/06/24 06:59 14:59 22:59 Intake Total 170 / 3305.187 1229 / 1060 360 / 1420 Output Total 950 / 2050 Balance -780 / -590.913 1482 / 1060 360 / 1420 Weight last 48 hrs Weight 270 lb 1.06 oz Weight 267 lb 4.8 oz Physical Exam 2 Const: OTHER: GENERAL: Patient is alert, awake and oriented x3. HEART: Regular S1 and S2. No murmur, rub or gallop. LUNGS: Clear to auscultate bilaterally. CENTRAL NERVOUS SYSTEM: Grossly nonfocal. EXTREMITIES: Lower extremities both leg bilateral 3-4+ edema with blisters, right leg has cellulitis, has dopplerable posterior tibial pulse in the right leg. Denies any pain at rest Urinary Catheter Management: Burciaga: Cath Placed During This Visit: yes Reason for Continuing Indwelling Catheter: Accurate Measurement of Urinary Output in Critically Ill Patients Urinary Catheter Date of Insertion: 08/31/24 Urinary Catheter Time of Insertion: 19:00 Data 09/06/24 04:57 09/06/24 04:57 Micro: Microbiology 09/05/24 13:18 Sputum Culture - Preliminary Sputum - Expectorated Sputum 09/03/24 16:00 Gram Stain - Final Sputum - Expectorated Sputum Sputum Culture - Preliminary Gram Negative Rods 08/31/24 17:50 Blood Culture - Final Blood NO GROWTH AFTER 5 DAYS 08/31/24 17:54 Blood Culture - Final Blood NO GROWTH AFTER 5 DAYS A&P Assessment and plan (1) Ischemic cardiomyopathy: Increase diuresis to lasix 80 BID. Patient may need to be placed back on dobutamine. (2) PAD (peripheral artery disease): patient does not have acute limb ischemia lower extremity edema cellulitis and blisters contributing to swelling of the both leg and pain. Patient has dopplerable posterior tibial pulse in the right leg. Continue to diurese continue to apply antibiotics use IV antibiotics and wound care Plan As stated above. Lovenox discontinued. HRAIKA panel has been sent off. If patient doesn't improve, will need to add dobuatine. Attestations 2 Medical Necessity Statement*: Require continuation of hospitalization for evaluation and care Coding Level of Care Code Acute Code for [facility] Diagnoses Ischemic cardiomyopathy I25.5 PAD (peripheral artery disease) I73.9
[2024-09-06 20:44] LABS: Glucose Point of Care 139 mg/dL (70-110)
[2024-09-07] VITALS (28 sets, daily range): BP systolic 124–154; BP diastolic 70–89; PULSE 56–77; RESP 15–26; TEMP 36.2–36.4; O2SAT 91–100
[2024-09-07] MEDS: piperacillin-tazobactam 3.375 GM in sodium chloride 0.9% (plus) 50 ML IV ×3 (01:04→18:04)
[2024-09-07] MEDS: vancomycin 1,500 MG/300 ML PIGGYBACK 200 MG IV (02:48)
[2024-09-07 04:42] LABS: Albumin Level 2.5 g/dL (3.5-5.2); Alkaline Phosphatase 248 U/L (40-130); Blood Urea Nitrogen 30 mg/dL (6-20); Calcium 8.2 mg/dL (8.5-10.5); Carbon Dioxide 28 mmol/L (22-29); Chloride 95 mmol/L (98-107); Creatinine Clr Calc Pharmacy 102.2053; Glucose 114 mg/dL (65-115); Magnesium 1.9 mg/dL (1.7-2.3); Osmolality Calculated 277 mOsm/kg (285-295); Phosphorus 2.8 mg/dL (2.5-4.5); Sodium 130 mmol/L (136-145); Total Bilirubin 0.9 mg/dL (0.15-1.2); Total Protein 5.5 g/dL (6.6-8.7)
[2024-09-07 04:49] LABS: Alanine Aminotransferase 15 U/L (0-41); Aspartate Amino Transferase 16 U/L (0-40)
[2024-09-07] MEDS: HYDROcodone-acetaminophen 10-325 mg Tablet 1 TAB PO ×3 (06:54→21:54)
[2024-09-07 07:55] LABS: Glucose Point of Care 101 mg/dL (70-110)
[2024-09-07 09:53] LABS: Basophils % 0.2 %; Eosinophils # 0.1 10^3/uL (0.0-0.8); Eosinophils % 0.9 %; Hematocrit 43.6 % (37-53); Lymphocytes # 1.3 10^3/uL (0.8-4.8); Lymphocytes % 14.3 %; Mean Corpuscular HGB Conc 31.2 g/dL (30-55); Mean Corpuscular Hemoglobin 27.3 pg (27-33); Mean Corpuscular Volume 87.6 fl (82-101); Monocytes # 0.4 10^3/uL (0.2-0.9); Monocytes % 4.3 %; Neutrophils # 6.82 10^3/uL (1.8-7.7); Neutrophils % 77.6 %; Nucleated Red Blood Cells % 0 %; Platelet Count 79 10^3/cmm (157-399); Red Blood Count 4.98 10^6/uL (3.85-5.65); Red Cell Distribution Width 17.5 % (12.1-15.1)
[2024-09-07 10:00] LABS: Slide Review Slide Review Perform
[2024-09-07] MEDS: clopidogrel 75 mg Tablet PO (10:07)
[2024-09-07] MEDS: duloxetine 20 mg Capsule PO ×2 (10:07→18:01)
[2024-09-07] MEDS: aspirin 81 mg EC Tablet PO (10:07)
[2024-09-07] MEDS: tamsulosin 0.4 mg Capsule PO (10:07)
[2024-09-07] MEDS: nicotine 14 mg Patch 1 PATCH TRANSDERMA (10:08)
[2024-09-07] MEDS: pantoprazole DR 40 mg Tablet PO (10:08)
[2024-09-07 11:37] LABS: Blood Urea Nitrogen 33 mg/dL (6-20); Calcium 8.6 mg/dL (8.5-10.5); Carbon Dioxide 31 mmol/L (22-29); Chloride 93 mmol/L (98-107); Creatinine Clr Calc Pharmacy 111.7682; Glucose 152 mg/dL (65-115); Osmolality Calculated 286 mOsm/kg (285-295); Sodium 133 mmol/L (136-145)
[2024-09-07 11:43] LABS: Glucose Point of Care 187 mg/dL (70-110)
[2024-09-07] MEDS: insulin lispro 100 unit/1 mL SUBCUT ×2 (11:43→18:01)
--- NOTE | 2024-09-07 11:57 | PC.SOCIAL ---
IMM Update Pg. 2 of IMM updated. Initialed, dated, and timed, copy provided at bedside.
--- NOTE | 2024-09-07 12:03 | PM.PN ---
Subjective Subjective: seen today 4.5L neg since admit 2600 uo in last 24 hours platelets 79, K high this am, repeat is normal says breathing is better, saturating 95% on room air Vitals/I&O/Wt Last Vital Signs Temp 97.1 F L 09/07/24 09:05 Pulse 73 09/07/24 10:00 Resp 15 09/07/24 10:00 BP 147/85 09/07/24 10:00 Pulse Ox 95 09/07/24 10:00 O2 Del Method Room Air 09/07/24 10:00 O2 Flow Rate 2 09/06/24 08:53 FiO2 21 09/03/24 08:17 09/06/24 09/07/24 09/07/24 22:59 06:59 14:59 Intake Total 410 / 1470 350 / 1820 Output Total 1300 / 1300 1350 / 2650 Balance -890 / 170 -1000 / -830 Weight last 48 hrs Weight 119 kg Weight 122.5 kg Physical Exam Narrative: General: Alert oriented x3, patient seen laying in bed, obese large body habitus HEENT: Normocephalic, atraumatic, EOMI, breathing room air Cardio: Regular rate rhythm, normal S1-S2, Respiratory: Clear to auscultation bilaterally no wheezes or rhonchi at this time. GI: Abdomen soft, nontender, distended obese rounded, bowel sounds + Extremities: 3+ bilateral pitting edema up to thighs with numerous excoriations bilateral lower extremities and weeping lesions. Yellow fluid draining from right leg. Edema has slightly improved. Able to Doppler pulses bilateral feet.not much change in edema in last few days but improved since admission. Urinary Catheter Management: Burciaga: Cath Placed During This Visit: yes Reason for Continuing Indwelling Catheter: Accurate Measurement of Urinary Output in Critically Ill Patients Urinary Catheter Date of Insertion: 08/31/24 Urinary Catheter Time of Insertion: 19:00 Data 09/07/24 09:30 09/07/24 10:40 Micro: Microbiology 09/05/24 13:18 Sputum Culture - Final Sputum - Expectorated Sputum 09/03/24 16:00 Gram Stain - Final Sputum - Expectorated Sputum Sputum Culture - Final Pseudomonas aeruginosa A&P Assessment and plan (1) Benign essential HTN: (2) CHF (congestive heart failure): (3) Ischemic cardiomyopathy: (4) CAD (coronary artery disease): (5) PAD (peripheral artery disease): (6) Hypercholesteremia: (7) GERD (gastroesophageal reflux disease): (8) COPD (chronic obstructive pulmonary disease): Qualifiers: COPD type: emphysema Emphysema type: centrilobular Qualified Code(s): J43.2 - Centrilobular emphysema (9) Obstructive sleep apnea: (10) Bilateral edema of lower extremity: (11) Cellulitis: Plan #Acute on chronic congestive systolic heart failure exacerbation #Diabetes mellitus, insulin-dependent #Cellulitis right lower extremity #Acute limb ischemia?ruled out. #Peripheral arterial disease #Dyslipidemia, hypertension #Peripheral neuropathy #GERD #Coronary artery disease status post PCI #History of STEMI, NSTEMI ? Patient did get a 60 IV Lasix in ER. Will place on 60 IV twice daily going forward. ? BNP 27,000. Will check lactic acid ? Check sputum culture Gram stain, patient did complain of expectorating brownish sputum. ? Check blood cultures, check urine culture ? Will place Burciaga catheter for accurate output. Does have a history of BPH. ? Patient on room air at this time. Will add DuoNeb every 6 hours as needed. ? Will check arterial Dopplers bilaterally and venous Dopplers ? Chest x-ray does show peripheral mid to lower left lung hazy opacities compatible with atelectasis or developing infection in the proper clinical setting. ? Will place on vancomycin and Zosyn for possible pneumonia and to cover for lower extremity cellulitis. Will have pharmacy to dose medications. ? Continue patient on home dose Lantus 70 units daily with 30 units at bedtime. Will add moderate dose intensity sliding scale insulin. ? Check hemoglobin A1c ? Will check C-reactive protein, procalcitonin ? Will hold off on septic bolus at this time. Patient does not meet sepsis criteria. He is hemodynamically stable. White count is 13,000. ? He would like to be a full code. -I will hold home Entresto ranolazine at this time. Continue Imdur, aspirin, Plavix, carvedilol. ? Lasix 60 IV twice daily. Add potassium 20 mEq daily. -Patient hyponatremic with sodium 128 most likely secondary to hypervolemia. -Check echocardiogram -EKG without any acute ischemic changes. Does have first-degree AV block. Full code DVT prophylaxis: Heparin subcu twice daily Patient has multiple comorbid conditions and is experiencing lower extremity cellulitis, possible pneumonia, heart failure exacerbation. He will most likely require greater than 72-hour stay for management of above issues. 09/01/2024 - arterial dopplers Abnormal arterial waveforms in both lower extremities suggesting hemodynamically significant stenoses without total occlusion. Correlation with CT angiography and vascular evaluation is recommended. - No sonographic evidence of deep venous thrombosis in either lower extremity. CXR shows: Peripheral mid to lower left lung hazy opacities compatible with atelectasis or developing infection in the proper clinical setting. - sodium 131, most likely 2/2 to hypervolemia - cr 1.2 today lactic acid 2.7. bandemia present. - sepsis 2/2 to pna, vs le cellulitis - place on ns @ 75 cc/hr gentle fluid hydration. hold lasix for now - check ct chest abd pelvis, right leg, abd aorta run-off - cardiology consult. will discuss regarding dobutamine gtt? - hold entresto, hold ranolzaine. - bp soft, reduce imdur to 60 daily - cut down coreg to 6.25 bid - check echo, pending. - lactic acid possibly elevated due to worsening heart failure, vs infection. pt may require icu transfer for dobutamine gtt and lasix. Pt did get lasix 60 iv 3 doses since admission, and did not have adequate urine output. last echo shows EF 40% 202209/02/2024 - - arterial dopplers Abnormal arterial waveforms in both lower extremities suggesting hemodynamically significant stenoses without total occlusion. Correlation with CT angiography and vascular evaluation is recommended. - No sonographic evidence of deep venous thrombosis in either lower extremity. CXR shows: Peripheral mid to lower left lung hazy opacities compatible with atelectasis or developing infection in the proper clinical setting. ? Patient has evidence of right lower limb ischemia. Leg has developed worsening blisters, weeping, worsening redness. Initial troponin 185, lactic acid 3.8 yesterday. Repeat lactic acid pending from this morning. ? Sodium worsened to 125, creatinine 1.4. Patient did receive contrast yesterday for CT abdomen runoff. ? CT aorta runoff shows right superficial femoral artery occluded at origin, patent iliac artery system and common femoral arteries bilaterally. Poor runoff to the ankles bilaterally with no evidence of posterior tibial arteries. Diffuse body wall anasarca. ? Will place patient on heparin drip. ? Discussed with cardiology. qualifications examiner will be evaluating patient to make final determination. Patient may need vascular surgery referral. ? Continue Lasix 60 IV every 8 hours ? Placed on dobutamine drip low-dose. Patient currently on Levophed 4 mics per hour. Has been hypotensive. ? Stop spironolactone ? Stop Lantus. He has been hypoglycemic overnight. ? He does have worsening kidney function. ? Continue renally dosed vancomycin and Zosyn at this time. ? Blood cultures pending ? Carvedilol 3.125 twice daily ordered however held this morning secondary to hypotension. ? Continue aspirin, Plavix. ? Patient has multiple comorbid conditions at this time and will benefit from tertiary care center for disability approach of his medical issues. As per recommendations from cardiology will attempt to transfer. ? Echo from this admission did show worsening EF of 30%. 09/03/2024 -Right lower limb acute ischemia ruled out. ? Patient improving. Continue dobutamine drip at 2.5/h, continue Lasix 60 IV 3 times daily. ? Replete potassium ? Continue to hold nephrotoxics ? Continue to hold Lantus. Continue insulin sliding scale moderate dose intensity ? Continue vancomycin and Zosyn ? Blood cultures pending, negative to date ? Continue aspirin Plavix, heparin drip. ? Platelets 62,000. Continue to monitor. Will send over HIT panel. Check heparin-induced antibodies ? Check CBC at 6 PM. If platelets further declining. Will stop heparin drip and switch to argatroban. ? Nephrology following. ? Lactic acid is normalized. Cardiology following. No acute need to transfer patient at this time. Limb ischemia ruled out. Echo from this admission did show worsening EF of 30% 09/04/2024 - platelets stable at 62K, no further drop - Continue dobutamine, continue to diurese - switch to lasix 40 IV BID - recheck labs in AM - will consider diamox tomorrow - EF 30% - continue current managment ? Continue vancomycin and Zosyn ? Blood cultures pending, negative to date ? Continue aspirin Plavix, heparin drip. - order phosphorus orally 09/05/2024 - cbc pending - stop dobutamine, continue to diurese - continue lasix 40 IV BID - recheck labs in AM - EF 30% - continue current managment ? Continue vancomycin and Zosyn ? Blood cultures pending, negative to date ? Continue aspirin Plavix, heparin drip stopped, pt switched to therapeutic lovenox - check phosphorus, cbc cmp in am - discussed plan with cardiology going forward 09/06/2024 -Switch to Lasix 80 IV twice daily. If urine output does not increase may consider adding dobutamine. Patient needs to be in a higher net negative balance. Continue fluid restriction. ? EF 30% ? Continue vancomycin and Zosyn Respiratory culture positive, final is pending Continue aspirin Plavix Stop heparin drip, stop therapeutic Lovenox. Continue to monitor platelet count. If evidence of thrombosis will need to place patient on Eliquis. Discussed with hematology. ? Plan for peripheral angiogram upcoming Thursday as long as platelet count higher. Discussed with cardiology and went over CT aorta runoff. Continue Solu-Medrol 40 daily Wean off oxygen as able 09/07/2024 - transfer to [facility] - continue to diurese with lasix 80 iv bid - continue to monitor electrolytes - continue vancomycin, zosyn - platelets improving, HIT panel pending, avoid heparin products - plan for peripheral angiogram in AM - continue solumedrol 40 iv daily - PT/OT Attestations Medical Necessity Statement*: Require continuation of hospitalization for evaluation and care peripheral angiogram in AM Diagnoses Benign essential HTN I10 CHF (congestive heart failure) I50.9 Ischemic cardiomyopathy I25.5 CAD (coronary artery disease) I25.10 PAD (peripheral artery disease) I73.9 Hypercholesteremia E78.00 GERD (gastroesophageal reflux disease) K21.9 Centrilobular emphysema J43.2 COPD type: emphysema Emphysema type: centrilobular Obstructive sleep apnea G47.33 Bilateral edema of lower extremity R60.0 Cellulitis L03.90
[2024-09-07] MEDS: acetaminophen 325 mg Tablet 650 MG PO (12:25)
--- NOTE | 2024-09-07 15:00 | P.PN_ITS ---
<Statement entered by Nir Burnham MD - 09/08/24 21:53> Patient was evaluated and cared for in conjunction with an advanced practice practitioner. I personally examined the patient and reviewed the chart and all pertinent data including imaging, telemetry, and laboratory results. I discussed the patient in detail with the advanced practice practitioner. Please see their note for complete H&P testing result and agreed upon plan of care for the patient. Overall feeling better GENERAL: Patient is alert, awake and oriented x3. HEART: Regular S1 and S2. No murmur, rub or gallop. LUNGS: Clear to auscultate bilaterally. CENTRAL NERVOUS SYSTEM: Grossly nonfocal. EXTREMITIES: Lower extremities with 4+ edema on the right side with cellulitis Acute decompensated on chronic systolic heart failure Lower extremity edema most likely out of proportion of CHF and secondary to chronic venous insufficiency Continue IV diuresis Entresto has been added Venous reflux study will be asked Continue antibiotics Further plan be devised as per progress of the patient Subjective 2 Subjective: Patient slightly improved. Edema seems to be improving. Platelets have slightly improved. Potassium was hemolyzed and read at 6 but redraw showed 4. He has had 1400 out over 24 hours. We are starting to see some improvements. Creatinine continues to remain normal. He still has improved perfusion right lower extremity without signs of ischemia. Vitals/I&O/Wt Last Vital Signs Temp 97.1 F L 09/07/24 09:05 Pulse 73 09/07/24 10:00 Resp 15 09/07/24 10:00 BP 147/85 09/07/24 10:00 Pulse Ox 95 09/07/24 10:00 O2 Del Method Room Air 09/07/24 10:00 O2 Flow Rate 2 09/06/24 08:53 FiO2 21 09/03/24 08:17 09/07/24 09/07/24 09/07/24 06:59 14:59 22:59 Intake Total 350 / 1820 Output Total 1350 / 2650 Balance -1000 / -830 Weight last 48 hrs Weight 262 lb 5.601 oz Weight 270 lb 1.06 oz Physical Exam 2 Const: OTHER: GENERAL: Patient is alert, awake and oriented x3. HEART: Regular S1 and S2. No murmur, rub or gallop. LUNGS: Clear to auscultate bilaterally. CENTRAL NERVOUS SYSTEM: Grossly nonfocal. EXTREMITIES: Lower extremities both leg bilateral 3-4+ edema with blisters, right leg has cellulitis, has dopplerable posterior tibial pulse in the right leg. Denies any pain at rest Urinary Catheter Management: Burciaga: Cath Placed During This Visit: yes Reason for Continuing Indwelling Catheter: Accurate Measurement of Urinary Output in Critically Ill Patients Urinary Catheter Date of Insertion: 08/31/24 Urinary Catheter Time of Insertion: 19:00 Data 09/07/24 09:30 09/07/24 10:40 Micro: Microbiology 09/05/24 13:18 Sputum Culture - Final Sputum - Expectorated Sputum 09/03/24 16:00 Gram Stain - Final Sputum - Expectorated Sputum Sputum Culture - Final Pseudomonas aeruginosa A&P Assessment and plan (1) Ischemic cardiomyopathy: Continue diuresis at lasix 80 BID. Patient over a liter out with improvement in swelling. (2) PAD (peripheral artery disease): patient does not have acute limb ischemia lower extremity edema cellulitis and blisters contributing to swelling of the both leg and pain. Patient has dopplerable posterior tibial pulse in the right leg. Continue to diurese continue to apply antibiotics use IV antibiotics and wound care. Patient will need an angiogram at some point but at this time the lesion is chronic without evidence of acute ischemia. Patient will need to be optimized medically prior to any lower extremity intervention. Currently platelets are still low and we are awaiting a HIT panel. Will avoid aspirin and Plavix at this time due to that. Plan As stated above. Lovenox discontinued. HARIKA panel has been sent off. If patient doesn't improve, will continue current care. Attestations 2 Medical Necessity Statement*: Require continuation of hospitalization for evaluation and care Coding Level of Care Code Acute Code for [facility] Diagnoses Ischemic cardiomyopathy I25.5 PAD (peripheral artery disease) I73.9
[2024-09-07 17:37] LABS: Glucose Point of Care 157 mg/dL (70-110)
--- NOTE | 2024-09-07 18:17 | PC.NURSE ---
Shift SUmmary: rested in bed throughout the day. Bilateral pedal pulses required doppler to detect. No noticeable change in swelling. total urine output: 600mL
[2024-09-07 21:05] LABS: Glucose Point of Care 126 mg/dL (70-110)
[2024-09-07 21:16] LABS: Heparin-Induced Platelet AB Negative (Negative)
[2024-09-08] VITALS (17 sets, daily range): BP systolic 128–155; BP diastolic 69–88; PULSE 63–84; RESP 10–24; TEMP 35.7–36.8; O2SAT 93–98
[2024-09-08 00:34] LABS: Heparin Induced Platelet AB NEGATIVE (NEGATIVE); Patient O.D 0.055
[2024-09-08 05:41] LABS: Basophils % 0.4 %; Eosinophils # 0.1 10^3/uL (0.0-0.8); Eosinophils % 1.1 %; Hematocrit 40.8 % (37-53); Lymphocytes # 1.3 10^3/uL (0.8-4.8); Lymphocytes % 15.3 %; Mean Corpuscular HGB Conc 32.4 g/dL (30-55); Mean Corpuscular Hemoglobin 27.7 pg (27-33); Mean Corpuscular Volume 85.7 fl (82-101); Mean Platelet Volume 12.7 fL (7.4-10.4); Monocytes # 0.4 10^3/uL (0.2-0.9); Monocytes % 5.3 %; Neutrophils # 6.26 10^3/uL (1.8-7.7); Neutrophils % 75.7 %; Nucleated Red Blood Cells % 0 %; Platelet Count 87 10^3/cmm (157-399); Red Blood Count 4.76 10^6/uL (3.85-5.65); Red Cell Distribution Width 17.6 % (12.1-15.1); White Blood Count 8.26 10^3/uL (3.29-11.43)
[2024-09-08] MEDS: HYDROcodone-acetaminophen 10-325 mg Tablet 1 TAB PO ×3 (06:02→18:03)
[2024-09-08 06:03] LABS: Anion Gap 14.7 (5-19); Blood Urea Nitrogen 37 mg/dL (6-20); Calcium 8.2 mg/dL (8.5-10.5); Carbon Dioxide 28 mmol/L (22-29); Chloride 95 mmol/L (98-107); Creatinine Clr Calc Pharmacy 125.7392; Glomerular Filtration Rate 99.6 mL/min (90-130); Glucose 116 mg/dL (65-115); Magnesium 1.9 mg/dL (1.7-2.3); Osmolality Calculated 288 mOsm/kg (285-295); Potassium 3.7 mmol/L (3.5-5.1); Sodium 134 mmol/L (136-145)
[2024-09-08 08:33] LABS: Glucose Point of Care 129 mg/dL (70-110)
[2024-09-08] MEDS: duloxetine 20 mg Capsule PO ×2 (09:18→18:03)
[2024-09-08] MEDS: tamsulosin 0.4 mg Capsule PO (09:18)
[2024-09-08] MEDS: aspirin 81 mg EC Tablet PO (09:18)
[2024-09-08] MEDS: nicotine 14 mg Patch 1 PATCH TRANSDERMA (09:19)
[2024-09-08] MEDS: clopidogrel 75 mg Tablet PO (09:19)
[2024-09-08] MEDS: isosorbide mononitrate ER 60 mg Tablet PO (09:19)
[2024-09-08] MEDS: pantoprazole DR 40 mg Tablet PO (09:19)
--- NOTE | 2024-09-08 10:46 | P.PN_ITS ---
<Statement entered by Nir Burnham MD - 09/08/24 20:55> Patient was evaluated and cared for in conjunction with an advanced practice practitioner. I personally examined the patient and reviewed the chart and all pertinent data including imaging, telemetry, and laboratory results. I discussed the patient in detail with the advanced practice practitioner. Please see their note for complete H&P testing result and agreed upon plan of care for the patient. Patient states he is feeling fine GENERAL: Patient is alert, awake and oriented x3. HEART: Regular S1 and S2. No murmur, rub or gallop. LUNGS: Clear to auscultate bilaterally. CENTRAL NERVOUS SYSTEM: Grossly nonfocal. EXTREMITIES: Lower extremities with 3+ edema, cellulitis of the right leg posterior tibial on the right side dopplerable Assessment and plan Acute decompensated systolic heart failure Cellulitis of right leg Chronic venous insufficiency with venous edema Peripheral arterial disease with chronically occluded [employer] Thrombocytopenia Continue antibiotic Start patient on IV Lasix for 80 mg twice daily with metolazone 2.5 mg twice daily right leg swelling most likely secondary to chronic venous insufficiency and not due to peripheral arterial disease, it is out of proportion of , It is out of proportion of decompensated heart failure. At this point I would ask for venous reflux study to assess venous valvular incompetence for possible venous vein ablation and deep venous valve if it turns out to be incompetent. Patient has been started on Entresto and is tolerating well Will give him another round of IV diuresis with Lasix 80 mg twice daily and metolazone 2.5 mg to monitor closely renal function if start getting up may will back off. Subjective 2 Subjective: Overall patient doing okay today. Output was -375. Lasix have been previously held due to the thought that he was in acute renal failure due to elevated potassium but this sample was hemolyzed recheck showed it was within normal limits. Denies chest pain or shortness of breath. Legs still with good perfusion. Medications: Reviewed: Yes Vitals/I&O/Wt Last Vital Signs Temp 96.3 F L 09/08/24 08:00 Pulse 77 09/08/24 10:00 Resp 23 H 09/08/24 10:00 BP 153/75 09/08/24 10:00 Pulse Ox 93 09/08/24 10:00 O2 Del Method Room Air 09/08/24 08:20 O2 Flow Rate 2 09/06/24 08:53 FiO2 21 09/03/24 08:17 09/07/24 09/08/24 09/08/24 22:59 06:59 14:59 Intake Total 900 / 950 75 / 1025 560 / 560 Output Total 600 / 600 800 / 1400 200 / 200 Balance 300 / 350 -725 / -375 360 / 360 Weight last 48 hrs Weight 266 lb 12.149 oz Weight 262 lb 5.601 oz Physical Exam 2 Const: OTHER: GENERAL: Patient is alert, awake and oriented x3. HEART: Regular S1 and S2. No murmur, rub or gallop. LUNGS: Clear to auscultate bilaterally. CENTRAL NERVOUS SYSTEM: Grossly nonfocal. EXTREMITIES: Lower extremities both leg bilateral 3-4+ edema with blisters, right leg has cellulitis, has dopplerable posterior tibial pulse in the right leg. Denies any pain at rest Urinary Catheter Management: Burciaga: Cath Placed During This Visit: yes Reason for Continuing Indwelling Catheter: Accurate Measurement of Urinary Output in Critically Ill Patients Urinary Catheter Date of Insertion: 08/31/24 Urinary Catheter Time of Insertion: 19:00 Data 09/08/24 04:59 09/08/24 04:59 Micro: Microbiology 09/05/24 13:18 Sputum Culture - Final Sputum - Expectorated Sputum 09/03/24 16:00 Gram Stain - Final Sputum - Expectorated Sputum Sputum Culture - Final Pseudomonas aeruginosa A&P Assessment and plan (1) Ischemic cardiomyopathy: Continue diuresis at lasix 80 BID. Patient over a liter out with improvement in swelling. (2) PAD (peripheral artery disease): patient does not have acute limb ischemia lower extremity edema cellulitis and blisters contributing to swelling of the both leg and pain. Patient has dopplerable posterior tibial pulse in the right leg. Continue to diurese continue to apply antibiotics use IV antibiotics and wound care. Patient will need an angiogram at some point but at this time the lesion is chronic without evidence of acute ischemia. Patient will need to be optimized medically prior to any lower extremity intervention. Currently platelets are still low but improving at 87. Will avoid aspirin and Plavix at this time due to that. HARIKA antibodies negative so far. May be sepsis induced. Will add Entresto for heart failure. Plan As stated above. Lovenox discontinued. HARIKA panel has been sent off. If patient doesn't improve, will continue current care. Attestations 2 Medical Necessity Statement*: Require continuation of hospitalization for evaluation and care Coding Level of Care Code Acute Code for [facility] Diagnoses Ischemic cardiomyopathy I25.5 PAD (peripheral artery disease) I73.9
[2024-09-08] MEDS: FUROsemide 40 mg Tablet 80 MG PO (11:00)
[2024-09-08] MEDS: potassium chloride ER 20 mEq Tablet 40 MEQ PO (11:01)
--- NOTE | 2024-09-08 11:47 | PC.NURSE ---
transfer out of [facility] to [facility] via bed at 1125.report received.pt is alert and oriented x 4.denies pain at present.sr on monitor.oriented to room environment.instructed to notify staff for any c/o pain,sob,or for any concerns at all.pt verb understanding of instructions
[2024-09-08] MEDS: insulin lispro 100 unit/1 mL SUBCUT (12:31)
[2024-09-08 12:37] LABS: Glucose Point of Care 155 mg/dL (70-110)
--- NOTE | 2024-09-08 13:28 | P.PN_ITS ---
Subjective 2 Subjective: Urine output overnight 800. Total net -4 L. Patient has not had adequate diuresis during hospitalization. Patient subjectively feels better however bilateral lower extremity still weeping with significant edema. He has completed 7 days of antibiotics. Platelets 87,000. Vitals/I&O/Wt Last Vital Signs Temp 97.9 F 09/08/24 12:00 Pulse 78 09/08/24 12:00 Resp 24 H 09/08/24 12:00 BP 149/82 09/08/24 12:00 Pulse Ox 98 09/08/24 12:00 O2 Del Method Room Air 09/08/24 12:00 O2 Flow Rate 2 09/06/24 08:53 FiO2 21 09/03/24 08:17 09/07/24 09/08/24 09/08/24 22:59 06:59 14:59 Intake Total 900 / 950 75 / 1025 1040 / 1040 Output Total 600 / 600 800 / 1400 200 / 200 Balance 300 / 350 -725 / -375 840 / 840 Weight last 48 hrs Weight 121 kg Weight 119 kg Physical Exam 2 Narrative: General: Alert oriented x3, patient seen laying in bed, obese large body habitus HEENT: Normocephalic, atraumatic, EOMI, breathing room air Cardio: Regular rate rhythm, normal S1-S2, Respiratory: Clear to auscultation bilaterally no wheezes or rhonchi at this time. GI: Abdomen soft, nontender, distended obese rounded, bowel sounds + Extremities: 3+ bilateral pitting edema up to thighs with numerous excoriations bilateral lower extremities and weeping lesions. Yellow fluid draining from right leg. Edema has slightly improved. Able to Doppler pulses bilateral feet.not much change in edema in last few days but improved since admission. Urinary Catheter Management: Burciaga: Cath Placed During This Visit: yes Reason for Continuing Indwelling Catheter: Accurate Measurement of Urinary Output in Critically Ill Patients Urinary Catheter Date of Insertion: 08/31/24 Urinary Catheter Time of Insertion: 19:00 Data 09/08/24 04:59 09/08/24 04:59 Micro: Microbiology 09/05/24 13:18 Sputum Culture - Final Sputum - Expectorated Sputum 09/03/24 16:00 Gram Stain - Final Sputum - Expectorated Sputum Sputum Culture - Final Pseudomonas aeruginosa A&P Assessment and plan (1) Benign essential HTN: (2) CHF (congestive heart failure): (3) Ischemic cardiomyopathy: (4) CAD (coronary artery disease): (5) PAD (peripheral artery disease): (6) Hypercholesteremia: (7) GERD (gastroesophageal reflux disease): (8) COPD (chronic obstructive pulmonary disease): Qualifiers: COPD type: emphysema Emphysema type: centrilobular Qualified Code(s): J43.2 - Centrilobular emphysema (9) Obstructive sleep apnea: (10) Bilateral edema of lower extremity: (11) Cellulitis: Plan #Acute on chronic congestive systolic heart failure exacerbation #Diabetes mellitus, insulin-dependent #Cellulitis right lower extremity #Acute limb ischemia?ruled out. #Peripheral arterial disease #Dyslipidemia, hypertension #Peripheral neuropathy #GERD #Coronary artery disease status post PCI #History of STEMI, NSTEMI ? Patient did get a 60 IV Lasix in ER. Will place on 60 IV twice daily going forward. ? BNP 27,000. Will check lactic acid ? Check sputum culture Gram stain, patient did complain of expectorating brownish sputum. ? Check blood cultures, check urine culture ? Will place Burciaga catheter for accurate output. Does have a history of BPH. ? Patient on room air at this time. Will add DuoNeb every 6 hours as needed. ? Will check arterial Dopplers bilaterally and venous Dopplers ? Chest x-ray does show peripheral mid to lower left lung hazy opacities compatible with atelectasis or developing infection in the proper clinical setting. ? Will place on vancomycin and Zosyn for possible pneumonia and to cover for lower extremity cellulitis. Will have pharmacy to dose medications. ? Continue patient on home dose Lantus 70 units daily with 30 units at bedtime. Will add moderate dose intensity sliding scale insulin. ? Check hemoglobin A1c ? Will check C-reactive protein, procalcitonin ? Will hold off on septic bolus at this time. Patient does not meet sepsis criteria. He is hemodynamically stable. White count is 13,000. ? He would like to be a full code. -I will hold home Entresto ranolazine at this time. Continue Imdur, aspirin, Plavix, carvedilol. ? Lasix 60 IV twice daily. Add potassium 20 mEq daily. -Patient hyponatremic with sodium 128 most likely secondary to hypervolemia. -Check echocardiogram -EKG without any acute ischemic changes. Does have first-degree AV block. Full code DVT prophylaxis: Heparin subcu twice daily Patient has multiple comorbid conditions and is experiencing lower extremity cellulitis, possible pneumonia, heart failure exacerbation. He will most likely require greater than 72-hour stay for management of above issues. 09/01/2024 - arterial dopplers Abnormal arterial waveforms in both lower extremities suggesting hemodynamically significant stenoses without total occlusion. Correlation with CT angiography and vascular evaluation is recommended. - No sonographic evidence of deep venous thrombosis in either lower extremity. CXR shows: Peripheral mid to lower left lung hazy opacities compatible with atelectasis or developing infection in the proper clinical setting. - sodium 131, most likely 2/2 to hypervolemia - cr 1.2 today lactic acid 2.7. bandemia present. - sepsis 2/2 to pna, vs le cellulitis - place on ns @ 75 cc/hr gentle fluid hydration. hold lasix for now - check ct chest abd pelvis, right leg, abd aorta run-off - cardiology consult. will discuss regarding dobutamine gtt? - hold entresto, hold ranolzaine. - bp soft, reduce imdur to 60 daily - cut down coreg to 6.25 bid - check echo, pending. - lactic acid possibly elevated due to worsening heart failure, vs infection. pt may require icu transfer for dobutamine gtt and lasix. Pt did get lasix 60 iv 3 doses since admission, and did not have adequate urine output. last echo shows EF 40% 202209/02/2024 - - arterial dopplers Abnormal arterial waveforms in both lower extremities suggesting hemodynamically significant stenoses without total occlusion. Correlation with CT angiography and vascular evaluation is recommended. - No sonographic evidence of deep venous thrombosis in either lower extremity. CXR shows: Peripheral mid to lower left lung hazy opacities compatible with atelectasis or developing infection in the proper clinical setting. ? Patient has evidence of right lower limb ischemia. Leg has developed worsening blisters, weeping, worsening redness. Initial troponin 185, lactic acid 3.8 yesterday. Repeat lactic acid pending from this morning. ? Sodium worsened to 125, creatinine 1.4. Patient did receive contrast yesterday for CT abdomen runoff. ? CT aorta runoff shows right superficial femoral artery occluded at origin, patent iliac artery system and common femoral arteries bilaterally. Poor runoff to the ankles bilaterally with no evidence of posterior tibial arteries. Diffuse body wall anasarca. ? Will place patient on heparin drip. ? Discussed with cardiology. career placement specialist will be evaluating patient to make final determination. Patient may need vascular surgery referral. ? Continue Lasix 60 IV every 8 hours ? Placed on dobutamine drip low-dose. Patient currently on Levophed 4 mics per hour. Has been hypotensive. ? Stop spironolactone ? Stop Lantus. He has been hypoglycemic overnight. ? He does have worsening kidney function. ? Continue renally dosed vancomycin and Zosyn at this time. ? Blood cultures pending ? Carvedilol 3.125 twice daily ordered however held this morning secondary to hypotension. ? Continue aspirin, Plavix. ? Patient has multiple comorbid conditions at this time and will benefit from tertiary care center for disability approach of his medical issues. As per recommendations from cardiology will attempt to transfer. ? Echo from this admission did show worsening EF of 30%. 09/03/2024 -Right lower limb acute ischemia ruled out. ? Patient improving. Continue dobutamine drip at 2.5/h, continue Lasix 60 IV 3 times daily. ? Replete potassium ? Continue to hold nephrotoxics ? Continue to hold Lantus. Continue insulin sliding scale moderate dose intensity ? Continue vancomycin and Zosyn ? Blood cultures pending, negative to date ? Continue aspirin Plavix, heparin drip. ? Platelets 62,000. Continue to monitor. Will send over HIT panel. Check heparin-induced antibodies ? Check CBC at 6 PM. If platelets further declining. Will stop heparin drip and switch to argatroban. ? Nephrology following. ? Lactic acid is normalized. Cardiology following. No acute need to transfer patient at this time. Limb ischemia ruled out. Echo from this admission did show worsening EF of 30% 09/04/2024 - platelets stable at 62K, no further drop - Continue dobutamine, continue to diurese - switch to lasix 40 IV BID - recheck labs in AM - will consider diamox tomorrow - EF 30% - continue current managment ? Continue vancomycin and Zosyn ? Blood cultures pending, negative to date ? Continue aspirin Plavix, heparin drip. - order phosphorus orally 09/05/2024 - cbc pending - stop dobutamine, continue to diurese - continue lasix 40 IV BID - recheck labs in AM - EF 30% - continue current managment ? Continue vancomycin and Zosyn ? Blood cultures pending, negative to date ? Continue aspirin Plavix, heparin drip stopped, pt switched to therapeutic lovenox - check phosphorus, cbc cmp in am - discussed plan with cardiology going forward 09/06/2024 -Switch to Lasix 80 IV twice daily. If urine output does not increase may consider adding dobutamine. Patient needs to be in a higher net negative balance. Continue fluid restriction. ? EF 30% ? Continue vancomycin and Zosyn Respiratory culture positive, final is pending Continue aspirin Plavix Stop heparin drip, stop therapeutic Lovenox. Continue to monitor platelet count. If evidence of thrombosis will need to place patient on Eliquis. Discussed with hematology. ? Plan for peripheral angiogram upcoming Thursday as long as platelet count higher. Discussed with cardiology and went over CT aorta runoff. Continue Solu-Medrol 40 daily Wean off oxygen as able 09/08/2024 - transfer to [facility] - continue to diurese with lasix 80 iv bid, add metolazone 5 mg to be given 30 minutes before morning Lasix dose. - continue to monitor electrolytes -He has completed 7 days of vancomycin and Zosyn. I will stop antibiotics at this time. ? Patient still has significant lower extremity edema bilaterally with legs weeping. ? Net 4 L negative since admission. Measure daily weights. Discussed with nephrology over the phone as well. ? Will avoid further heparin products. ? Continue aspirin and Plavix. ? Platelets are improving. Heparin-induced antibody negative. 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 Further on heparin should be avoided. If needed Eliquis may be added. - platelets improving, HIT panel pending, avoid heparin products - plan for peripheral angiogram at some point. - continue solumedrol 40 iv daily - PT/OT ? Sodium 134. ? Patient's breathing has improved secondary to pneumonia being treated. ? Will complete Solu-Medrol 40 mg daily total for 5 days. ? Will discuss with cardiology regarding his further plan. If patient does not have adequate diuresis and improving and lower extremity edema may consider addition of dobutamine ? Entresto started by cardiology. Will continue. Attestations 2 Medical Necessity Statement*: Continue to hospitalize patient at this time. Significant bilateral lower extremity edema. Diagnoses Benign essential HTN I10 CHF (congestive heart failure) I50.9 Ischemic cardiomyopathy I25.5 CAD (coronary artery disease) I25.10 PAD (peripheral artery disease) I73.9 Hypercholesteremia E78.00 GERD (gastroesophageal reflux disease) K21.9 Centrilobular emphysema J43.2 COPD type: emphysema Emphysema type: centrilobular Obstructive sleep apnea G47.33 Bilateral edema of lower extremity R60.0 Cellulitis L03.90
[2024-09-08 16:49] LABS: Glucose Point of Care 104 mg/dL (70-110)
[2024-09-08] MEDS: sacubitril/valsartan 24-26 mg Tablet 1 EACH PO (18:03)
[2024-09-08 21:14] LABS: Glucose Point of Care 144 mg/dL (70-110)
[2024-09-08] MEDS: FUROsemide 10 mg/mL SDV 10mL 80 MG IVP (22:35)
[2024-09-08] MEDS: HYDROmorphone 1 mg/mL INJ 1 mL 0.4 MG IVP (22:36)
[2024-09-09] VITALS (9 sets, daily range): BP systolic 140–155; BP diastolic 77–99; PULSE 82–89; RESP 13–26; TEMP 36.4–37.3; O2SAT 91–98
[2024-09-09] MEDS: HYDROmorphone 1 mg/mL INJ 1 mL 0.4 MG IVP ×5 (03:05→21:56)
[2024-09-09 04:06] LABS: Basophils % 0.2 %; Eosinophils # 0.1 10^3/uL (0.0-0.8); Eosinophils % 0.7 %; Hematocrit 43.9 % (37-53); Lymphocytes # 1.3 10^3/uL (0.8-4.8); Lymphocytes % 12.9 %; Mean Corpuscular HGB Conc 31.7 g/dL (30-55); Mean Corpuscular Hemoglobin 27.2 pg (27-33); Mean Corpuscular Volume 85.9 fl (82-101); Mean Platelet Volume 11.8 fL (7.4-10.4); Monocytes # 0.4 10^3/uL (0.2-0.9); Neutrophils # 8.11 10^3/uL (1.8-7.7); Neutrophils % 81.1 %; Nucleated Red Blood Cells % 0 %; Platelet Count 88 10^3/cmm (157-399); Red Blood Count 5.11 10^6/uL (3.85-5.65); Red Cell Distribution Width 17.8 % (12.1-15.1)
[2024-09-09 05:00] LABS: Slide Review Slide Review Perform
[2024-09-09 06:29] LABS: Glucose Point of Care 134 mg/dL (70-110)
[2024-09-09 06:36] LABS: Anion Gap 13.7 (5-19); Blood Urea Nitrogen 34 mg/dL (6-20); Calcium 8.5 mg/dL (8.5-10.5); Carbon Dioxide 29 mmol/L (22-29); Chloride 95 mmol/L (98-107); Creatinine Clr Calc Pharmacy 144.7928; Glomerular Filtration Rate 116.2 mL/min (90-130); Glucose 131 mg/dL (65-115); Magnesium 1.9 mg/dL (1.7-2.3); Osmolality Calculated 285 mOsm/kg (285-295); Potassium 4.7 mmol/L (3.5-5.1); Sodium 133 mmol/L (136-145)
[2024-09-09] MEDS: tamsulosin 0.4 mg Capsule PO (08:34)
[2024-09-09] MEDS: pantoprazole DR 40 mg Tablet PO (08:34)
[2024-09-09] MEDS: nicotine 14 mg Patch 1 PATCH TRANSDERMA (08:34)
[2024-09-09] MEDS: sacubitril/valsartan 24-26 mg Tablet 1 EACH PO ×2 (08:34→17:33)
[2024-09-09] MEDS: clopidogrel 75 mg Tablet PO (08:35)
[2024-09-09] MEDS: duloxetine 20 mg Capsule PO ×2 (08:35→17:33)
[2024-09-09] MEDS: aspirin 81 mg EC Tablet PO (08:35)
[2024-09-09] MEDS: potassium chloride ER 20 mEq Tablet 40 MEQ PO (08:35)
[2024-09-09] MEDS: isosorbide mononitrate ER 60 mg Tablet PO (08:35)
[2024-09-09] MEDS: FUROsemide 10 mg/mL SDV 10mL 80 MG IVP ×2 (10:32→21:56)
[2024-09-09 11:24] LABS: Glucose Point of Care 151 mg/dL (70-110)
[2024-09-09] MEDS: insulin lispro 100 unit/1 mL SUBCUT (12:35)
--- NOTE | 2024-09-09 13:41 | PC.SOCIAL ---
IMM Update pg 2 of IMM Updated and reviewed w/ patient. Copy provided and copy dated, initialed and placed in chart.
--- NOTE | 2024-09-09 14:52 | P.PN_ITS ---
Subjective 2 Subjective: seen this am reports improvement in leg edema. mild wrinkling noted at ankles Vitals/I&O/Wt Last Vital Signs Temp 97.8 F 09/09/24 12:00 Pulse 89 09/09/24 12:00 Resp 26 H 09/09/24 12:00 BP 147/84 09/09/24 12:00 Pulse Ox 96 09/09/24 12:00 O2 Del Method Room Air 09/09/24 12:00 O2 Flow Rate 2 09/06/24 08:53 FiO2 21 09/03/24 08:17 09/08/24 09/09/24 09/09/24 22:59 06:59 14:59 Intake Total 960 / 2000 400 / 2400 820 / 820 Output Total 1390 / 1590 2100 / 3690 3350 / 3350 Balance -430 / 410 -1700 / -1290 -2530 / -2530 Weight last 48 hrs Weight 120.656 kg Weight 121 kg Physical Exam 2 Narrative: General: Alert oriented x3, patient seen laying in bed, obese large body habitus HEENT: Normocephalic, atraumatic, EOMI, breathing room air Cardio: Regular rate rhythm, normal S1-S2, Respiratory: Clear to auscultation bilaterally no wheezes or rhonchi at this time. GI: Abdomen soft, nontender, distended obese rounded, bowel sounds + Extremities: 2+ bilateral pitting edema up to thighs with numerous excoriations bilateral lower extremities and weeping lesions. Yellow fluid draining from right leg. Edema has slightly improved. Able to Doppler pulses bilateral feet.not much change in edema in last few days but improved since admission. , MILD wrinkling noted at ankles, few blisters close to ankles have ruptured Urinary Catheter Management: Burciaga: Cath Placed During This Visit: yes Reason for Continuing Indwelling Catheter: Accurate Measurement of Urinary Output in Critically Ill Patients Urinary Catheter Date of Insertion: 08/31/24 Urinary Catheter Time of Insertion: 19:00 Data 09/09/24 03:15 09/09/24 06:06 A&P Assessment and plan (1) Benign essential HTN: (2) CHF (congestive heart failure): (3) Ischemic cardiomyopathy: (4) CAD (coronary artery disease): (5) PAD (peripheral artery disease): (6) Hypercholesteremia: (7) GERD (gastroesophageal reflux disease): (8) COPD (chronic obstructive pulmonary disease): Qualifiers: COPD type: emphysema Emphysema type: centrilobular Qualified Code(s): J43.2 - Centrilobular emphysema (9) Obstructive sleep apnea: (10) Bilateral edema of lower extremity: (11) Cellulitis: Plan #Acute on chronic congestive systolic heart failure exacerbation #Diabetes mellitus, insulin-dependent #Cellulitis right lower extremity #Acute limb ischemia?ruled out. #Peripheral arterial disease #Dyslipidemia, hypertension #Peripheral neuropathy #GERD #Coronary artery disease status post PCI #History of STEMI, NSTEMI ? Patient did get a 60 IV Lasix in ER. Will place on 60 IV twice daily going forward. ? BNP 27,000. Will check lactic acid ? Check sputum culture Gram stain, patient did complain of expectorating brownish sputum. ? Check blood cultures, check urine culture ? Will place Burciaga catheter for accurate output. Does have a history of BPH. ? Patient on room air at this time. Will add DuoNeb every 6 hours as needed. ? Will check arterial Dopplers bilaterally and venous Dopplers ? Chest x-ray does show peripheral mid to lower left lung hazy opacities compatible with atelectasis or developing infection in the proper clinical setting. ? Will place on vancomycin and Zosyn for possible pneumonia and to cover for lower extremity cellulitis. Will have pharmacy to dose medications. ? Continue patient on home dose Lantus 70 units daily with 30 units at bedtime. Will add moderate dose intensity sliding scale insulin. ? Check hemoglobin A1c ? Will check C-reactive protein, procalcitonin ? Will hold off on septic bolus at this time. Patient does not meet sepsis criteria. He is hemodynamically stable. White count is 13,000. ? He would like to be a full code. -I will hold home Entresto ranolazine at this time. Continue Imdur, aspirin, Plavix, carvedilol. ? Lasix 60 IV twice daily. Add potassium 20 mEq daily. -Patient hyponatremic with sodium 128 most likely secondary to hypervolemia. -Check echocardiogram -EKG without any acute ischemic changes. Does have first-degree AV block. Full code DVT prophylaxis: Heparin subcu twice daily Patient has multiple comorbid conditions and is experiencing lower extremity cellulitis, possible pneumonia, heart failure exacerbation. He will most likely require greater than 72-hour stay for management of above issues. 09/01/2024 - arterial dopplers Abnormal arterial waveforms in both lower extremities suggesting hemodynamically significant stenoses without total occlusion. Correlation with CT angiography and vascular evaluation is recommended. - No sonographic evidence of deep venous thrombosis in either lower extremity. CXR shows: Peripheral mid to lower left lung hazy opacities compatible with atelectasis or developing infection in the proper clinical setting. - sodium 131, most likely 2/2 to hypervolemia - cr 1.2 today lactic acid 2.7. bandemia present. - sepsis 2/2 to pna, vs le cellulitis - place on ns @ 75 cc/hr gentle fluid hydration. hold lasix for now - check ct chest abd pelvis, right leg, abd aorta run-off - cardiology consult. will discuss regarding dobutamine gtt? - hold entresto, hold ranolzaine. - bp soft, reduce imdur to 60 daily - cut down coreg to 6.25 bid - check echo, pending. - lactic acid possibly elevated due to worsening heart failure, vs infection. pt may require icu transfer for dobutamine gtt and lasix. Pt did get lasix 60 iv 3 doses since admission, and did not have adequate urine output. last echo shows EF 40% 202209/02/2024 - - arterial dopplers Abnormal arterial waveforms in both lower extremities suggesting hemodynamically significant stenoses without total occlusion. Correlation with CT angiography and vascular evaluation is recommended. - No sonographic evidence of deep venous thrombosis in either lower extremity. CXR shows: Peripheral mid to lower left lung hazy opacities compatible with atelectasis or developing infection in the proper clinical setting. ? Patient has evidence of right lower limb ischemia. Leg has developed worsening blisters, weeping, worsening redness. Initial troponin 185, lactic acid 3.8 yesterday. Repeat lactic acid pending from this morning. ? Sodium worsened to 125, creatinine 1.4. Patient did receive contrast yesterday for CT abdomen runoff. ? CT aorta runoff shows right superficial femoral artery occluded at origin, patent iliac artery system and common femoral arteries bilaterally. Poor runoff to the ankles bilaterally with no evidence of posterior tibial arteries. Diffuse body wall anasarca. ? Will place patient on heparin drip. ? Discussed with cardiology. commission broker will be evaluating patient to make final determination. Patient may need vascular surgery referral. ? Continue Lasix 60 IV every 8 hours ? Placed on dobutamine drip low-dose. Patient currently on Levophed 4 mics per hour. Has been hypotensive. ? Stop spironolactone ? Stop Lantus. He has been hypoglycemic overnight. ? He does have worsening kidney function. ? Continue renally dosed vancomycin and Zosyn at this time. ? Blood cultures pending ? Carvedilol 3.125 twice daily ordered however held this morning secondary to hypotension. ? Continue aspirin, Plavix. ? Patient has multiple comorbid conditions at this time and will benefit from tertiary [facility] for disability approach of his medical issues. As per recommendations from cardiology will attempt to transfer. ? Echo from this admission did show worsening EF of 30%. 09/03/2024 -Right lower limb acute ischemia ruled out. ? Patient improving. Continue dobutamine drip at 2.5/h, continue Lasix 60 IV 3 times daily. ? Replete potassium ? Continue to hold nephrotoxics ? Continue to hold Lantus. Continue insulin sliding scale moderate dose intensity ? Continue vancomycin and Zosyn ? Blood cultures pending, negative to date ? Continue aspirin Plavix, heparin drip. ? Platelets 62,000. Continue to monitor. Will send over HIT panel. Check heparin-induced antibodies ? Check CBC at 6 PM. If platelets further declining. Will stop heparin drip and switch to argatroban. ? Nephrology following. ? Lactic acid is normalized. Cardiology following. No acute need to transfer patient at this time. Limb ischemia ruled out. Echo from this admission did show worsening EF of 30% 09/04/2024 - platelets stable at 62K, no further drop - Continue dobutamine, continue to diurese - switch to lasix 40 IV BID - recheck labs in AM - will consider diamox tomorrow - EF 30% - continue current managment ? Continue vancomycin and Zosyn ? Blood cultures pending, negative to date ? Continue aspirin Plavix, heparin drip. - order phosphorus orally 09/05/2024 - cbc pending - stop dobutamine, continue to diurese - continue lasix 40 IV BID - recheck labs in AM - EF 30% - continue current managment ? Continue vancomycin and Zosyn ? Blood cultures pending, negative to date ? Continue aspirin Plavix, heparin drip stopped, pt switched to therapeutic lovenox - check phosphorus, cbc cmp in am - discussed plan with cardiology going forward 09/06/2024 -Switch to Lasix 80 IV twice daily. If urine output does not increase may consider adding dobutamine. Patient needs to be in a higher net negative balance. Continue fluid restriction. ? EF 30% ? Continue vancomycin and Zosyn Respiratory culture positive, final is pending Continue aspirin Plavix Stop heparin drip, stop therapeutic Lovenox. Continue to monitor platelet count. If evidence of thrombosis will need to place patient on Eliquis. Discussed with hematology. ? Plan for peripheral angiogram upcoming Thursday as long as platelet count higher. Discussed with cardiology and went over CT aorta runoff. Continue Solu-Medrol 40 daily Wean off oxygen as able 09/08/2024 - transfer to [facility] - continue to diurese with lasix 80 iv bid, add metolazone 5 mg to be given 30 minutes before morning Lasix dose. - continue to monitor electrolytes -He has completed 7 days of vancomycin and Zosyn. I will stop antibiotics at this time. ? Patient still has significant lower extremity edema bilaterally with legs weeping. ? Net 4 L negative since admission. Measure daily weights. Discussed with nephrology over the phone as well. ? Will avoid further heparin products. ? Continue aspirin and Plavix. ? Platelets are improving. Heparin-induced antibody negative. 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 Further on heparin should be avoided. If needed Eliquis may be added. - platelets improving, HIT panel pending, avoid heparin products - plan for peripheral angiogram at some point. - continue solumedrol 40 iv daily - PT/OT ? Sodium 134. ? Patient's breathing has improved secondary to pneumonia being treated. ? Will complete Solu-Medrol 40 mg daily total for 5 days. ? Will discuss with cardiology regarding his further plan. If patient does not have adequate diuresis and improving and lower extremity edema may consider addition of dobutamine ? Entresto started by cardiology. Will continue. 09/09/2024 - continue to diurese with lasix 80 iv bid, add metolazone 5 mg to be given 30 minutes before morning Lasix dose. - continue to monitor electrolytes - ? Platelets are improving. Heparin-induced antibody negative. 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 Further on heparin should be avoided. If needed Eliquis may be added. - platelets improving, HIT panel pending, avoid heparin products - plan for peripheral angiogram at some point. ? Entresto started by cardiology. Will continue. Attestations 2 Medical Necessity Statement*: Continue to hospitalize patient at this time. Significant bilateral lower extremity edema. Diagnoses Benign essential HTN I10 CHF (congestive heart failure) I50.9 Ischemic cardiomyopathy I25.5 CAD (coronary artery disease) I25.10 PAD (peripheral artery disease) I73.9 Hypercholesteremia E78.00 GERD (gastroesophageal reflux disease) K21.9 Centrilobular emphysema J43.2 COPD type: emphysema Emphysema type: centrilobular Obstructive sleep apnea G47.33 Bilateral edema of lower extremity R60.0 Cellulitis L03.90
[2024-09-09 17:10] LABS: Glucose Point of Care 99 mg/dL (70-110)
[2024-09-09] MEDS: metOLazone 5 MG Tablet PO (17:33)
--- NOTE | 2024-09-09 19:42 | USCV_ITS ---
Yusuf Buck Age: 59 Gender: M : 1965 Exam Date: 09/09/2024 11:12 Ordering Phys: Jazmin Coreas MD Technologist: Exam Location: [facility] Indication: HISTORY: PROCEDURES: Bilateral duplex Venous Insufficiency study of the Deep and Superficial systems was carried out according to normal protocol with the patient in supine positon for deep system and dependent position for the superficial system. FINDINGS: All deep veins demonstrated compressibility without evidence of intraluminal thrombus or increased echogenicity. Spectral analysis of Doppler signals demonstrates normal response to compression maneuvers indicating patency without obstruction. Reflux determinations were made with the patient in the dependent position, the weight being on the contralateral leg. Vein measurements and reflux times are listed below were applicable. No notable reflux was seen at this time. The veins were found to be easily compressible with spontaneous blood flow. Multiple echolucency were noted in the subcutaneous tissue CONCLUSIONS No evidence of DVT in the above-mentioned identifiable veins. No significant venous reflux were noted on either side. Features of fluid retention/edema bilaterally Dr Michelle Rodriguez MD [facility] (Electronically Signed) Final Date: 09 September 2024 16:11 S
--- NOTE | 2024-09-09 20:36 | P.PN_ITS ---
Subjective 2 Subjective: Diuresed well lower extremity edema is improving Medications: Reviewed: Yes Medication Review Details: Current Medications Acetaminophen (Acetaminophen 325 Mg Tablet) 650 mg PO Q6H PRN PRN Reason: Mild/Mod Pain Or Temp >/= 101 Last Admin: 09/02/24 14:50 Dose: 650 mg Hydrocodone Bitart/Acetaminophen (Hydrocodone-Acetaminophen 10-325 Mg Tablet) 1 tab PO QID PRN PRN Reason: Pain Last Admin: 09/04/24 02:06 Dose: 1 tab Albuterol/Ipratropium (Ipratropium-Albuterol 3 Ml Neb) 3 ml INHALATION Q6H PRN PRN Reason: SHORTNESS OF BREATH Last Admin: 09/03/24 08:10 Dose: 3 ml Aspirin (Aspirin 81 Mg Ec Tablet) 81 mg PO DAILY [facility] Last Admin: 09/03/24 09:00 Dose: 81 mg Clopidogrel Bisulfate (Clopidogrel 75 Mg Tablet) 75 mg PO DAILY [facility] Last Admin: 09/03/24 09:00 Dose: 75 mg Denture Adhesive (Efferdent Effervescent) 1 each DENTAL PRN PRN PRN Reason: dental care Last Admin: 09/03/24 23:26 Dose: 1 each Duloxetine HCl (Duloxetine 20 Mg Capsule) 20 mg PO BID [facility] Last Admin: 09/03/24 18:21 Dose: 20 mg Furosemide (Furosemide 10 Mg/Ml Sdv 10ml) 60 mg IVP Q8H [facility] Last Admin: 09/04/24 04:29 Dose: 60 mg Glucagon (Glucagon 1 Mg/Ml Kit 1 Ml) 1 mg IM ONCE PRN; Protocol PRN Reason: Adult Acute Hypoglycemia Nursing Prot. Heparin Sodium (Porcine) (Heparin 5,000 Unit/Ml Inj 1 Ml) 5,000 unit SUBCUT Q12H [facility] Last Admin: 09/02/24 05:21 Dose: 5,000 unit Heparin Sodium (Porcine) (Heparin 5,000 Unit/Ml Inj 1 Ml) 0 unit IVP PRN PRN; Protocol PRN Reason: Heparin Weight Based Protocol -Subsequent Bolus Last Admin: 09/03/24 10:27 Dose: 200 unit Piperacillin Sod/Tazobactam (Sod 3.375 gm/ Sodium Chloride) 50 mls @ 12.5 mls/hr IV Q8H [facility] Last Infusion: 09/04/24 06:13 Dose: Infused Dextrose (D5w) 500 mls @ 0 mls/hr IV ONCE PRN; Protocol PRN Reason: Adult Acute Hypoglycemia Prot Dextrose (D10w) 125 mls @ 750 mls/hr IV PRN PRN; Protocol PRN Reason: Adult Acute Hypoglycemia Nursing Protocol Last Infusion: 09/02/24 05:50 Dose: Infused Dextrose (D10w) 250 mls @ 1,000 mls/hr IV PRN PRN; Protocol PRN Reason: Adult Acute Hypoglycemia Nursing Protocol Norepinephrine Bitartrate (Levophed) 4 mg in 250 mls @ 0 mls/hr IV .Q0M [facility]; Protocol Last Titration: 09/02/24 13:00 Dose: 0 mcg/min, 0 mls/hr Heparin Sodium/Sodium Chloride (Heparin Drip) 25,000 unit in 500 mls @ 0 mls/hr IV CONT [facility]; Protocol Last Titration: 09/04/24 00:25 Dose: 10.85 unit/kg/hr, 28 mls/hr Dobutamine HCl/Dextrose (Dobutamine Drip) 500 mg in 250 mls @ 0 mls/hr IV .Q0M [facility]; Protocol Last Admin: 09/03/24 09:05 Dose: 2.5 mcg/kg/min, 9.68 mls/hr Vancomycin HCl (Vancocin) 1,750 mg in 350 mls @ 175 mls/hr IV Q18H [facility] Last Infusion: 09/03/24 20:28 Dose: Infused Insulin Human Lispro (Insulin Lispro 100 Unit/1 Ml) 0 unit SUBCUT WM&BEDTIME [facility]; Protocol Last Admin: 09/03/24 21:26 Dose: 4 unit Isosorbide Mononitrate (Isosorbide Mononitrate Er 60 Mg Tablet) 60 mg PO DAILY [facility] Morphine Sulfate (Morphine 4 Mg/Ml Sdv 1 Ml) 2 mg IVP Q4H PRN PRN Reason: SEVERE PAIN Last Admin: 09/03/24 14:39 Dose: 2 mg Nicotine (Nicotine 14 Mg Patch) 1 patch TRANSDERMA DAILY [facility] Last Admin: 09/03/24 09:01 Dose: 1 patch Ondansetron HCl (Ondansetron 2 Mg/Ml Sdv 2 Ml) 4 mg IVP Q8H PRN PRN Reason: vomiting, or N/V if npo Pantoprazole Sodium (Pantoprazole Dr 40 Mg Tablet) 40 mg PO DAILY [facility] Last Admin: 09/03/24 09:00 Dose: 40 mg Potassium Chloride (Potassium Chloride Er 20 Meq Tablet) 20 meq PO Q24H [facility] Last Admin: 09/03/24 06:25 Dose: 20 meq Ranolazine (Ranolazine (12hr) 500 Mg Tablet) 500 mg PO BID [facility] Last Admin: 08/31/24 22:27 Dose: 500 mg Spironolactone (Spironolactone 25 Mg Tablet) 25 mg PO DAILY [facility] Last Admin: 09/02/24 08:48 Dose: 25 mg Tamsulosin HCl (Tamsulosin 0.4 Mg Capsule) 0.4 mg PO DAILY [facility] Last Admin: 09/03/24 09:00 Dose: 0.4 mg Vitals/I&O/Wt Last Vital Signs Temp 98.3 F 09/09/24 19:39 Pulse 83 09/09/24 19:39 Resp 21 H 09/09/24 19:39 BP 152/99 09/09/24 19:39 Pulse Ox 91 09/09/24 19:39 O2 Del Method Room Air 09/09/24 19:39 O2 Flow Rate 2 09/06/24 08:53 FiO2 21 09/03/24 08:17 09/09/24 09/09/24 09/09/24 06:59 14:59 22:59 Intake Total 400 / 2400 820 / 820 Output Total 2100 / 3690 3350 / 3350 200 / 3550 Balance -1700 / -1290 -2530 / -2530 -200 / -2730 Weight last 48 hrs Weight 266 lb Weight 266 lb 12.149 oz Physical Exam 2 Const: OTHER: GENERAL: Patient is alert, awake and oriented x3. HEART: Regular S1 and S2. No murmur, rub or gallop. LUNGS: Clear to auscultate bilaterally. CENTRAL NERVOUS SYSTEM: Grossly nonfocal. EXTREMITIES: Lower extremities both leg bilateral 2+ edema with blisters, right leg has cellulitis, has dopplerable posterior tibial pulse in the right leg. Urinary Catheter Management: Burciaga: Cath Placed During This Visit: yes Reason for Continuing Indwelling Catheter: Other Urinary Catheter Date of Insertion: 08/31/24 Urinary Catheter Time of Insertion: 19:00 Data 09/09/24 03:15 09/09/24 06:06 A&P Assessment and plan (1) Ischemic cardiomyopathy: Getting euvolemic, continue current regimen Lasix and metolazone continue to monitor potassium (2) PAD (peripheral artery disease): patient does not have acute limb ischemia lower extremity edema cellulitis and blisters contributing to swelling of the both leg and pain. Patient has dopplerable posterior tibial pulse in the right leg. Continue to diurese continue to apply antibiotics use IV antibiotics and wound care. Patient will need an angiogram at some point but at this time the lesion is chronic without evidence of acute ischemia. Patient will need to be optimized medically prior to any lower extremity intervention. Currently platelets are still low but improving at 87. Will avoid aspirin and Plavix at this time due to that. HARIKA antibodies negative so far. May be sepsis induced. Will add Entresto for heart failure. On today's visit dated 09/09 2024 patient lower extremity edema is improving. Platelets are improving months. Creatinine normalized may proceed with peripheral angiogram and attempt to revascularize right leg. (3) Lower extremity edema: Venous reflux study did not show significant reflux, not sure about it evaluated he has clinically it appeared to me that patient may have underlying venous insufficiency however test was negative. At this point continue to diurese once platelets improve we will proceed with peripheral angiogram hopefully early next week Plan Thrombocytopenia: Improving Attestations 2 Medical Necessity Statement*: Require continuation hospitalization for above defined care Coding Level of Care Code Acute Code for Chg Fwd Diagnoses Ischemic cardiomyopathy I25.5 PAD (peripheral artery disease) I73.9 Lower extremity edema R60.0
[2024-09-09 20:59] LABS: Glucose Point of Care 131 mg/dL (70-110)
[2024-09-10] VITALS (12 sets, daily range): BP systolic 124–149; BP diastolic 72–85; PULSE 70–99; RESP 12–24; TEMP 36.5–36.8; O2SAT 90–97
[2024-09-10] MEDS: HYDROmorphone 1 mg/mL INJ 1 mL 0.4 MG IVP ×5 (02:10→21:40)
--- NOTE | 2024-09-10 03:43 | PC.RESP ---
Pt not wearing CPAP.
[2024-09-10 04:53] LABS: Basophils % 0.4 %; Eosinophils % 0.4 %; Hematocrit 41.5 % (37-53); Lymphocytes % 9.3 %; Mean Corpuscular HGB Conc 32.8 g/dL (30-55); Mean Corpuscular Hemoglobin 27.9 pg (27-33); Mean Corpuscular Volume 85.2 fl (82-101); Monocytes # 0.5 10^3/uL (0.2-0.9); Monocytes % 4.9 %; Neutrophils # 8.81 10^3/uL (1.8-7.7); Nucleated Red Blood Cells % 0 %; Platelet Count 92 10^3/cmm (157-399); Red Blood Count 4.87 10^6/uL (3.85-5.65); White Blood Count 10.49 10^3/uL (3.29-11.43)
[2024-09-10 05:18] LABS: Anion Gap 11.2 (5-19); Blood Urea Nitrogen 35 mg/dL (6-20); Calcium 8.6 mg/dL (8.5-10.5); Carbon Dioxide 32 mmol/L (22-29); Chloride 91 mmol/L (98-107); Creatinine Clr Calc Pharmacy 126.6937; Glomerular Filtration Rate 99.6 mL/min (90-130); Glucose 141 mg/dL (65-115); Osmolality Calculated 280 mOsm/kg (285-295); Potassium 4.2 mmol/L (3.5-5.1); Sodium 130 mmol/L (136-145)
[2024-09-10 07:06] LABS: Glucose Point of Care 137 mg/dL (70-110)
[2024-09-10] MEDS: metOLazone 5 MG Tablet PO (08:05)
[2024-09-10] MEDS: tamsulosin 0.4 mg Capsule PO (08:05)
[2024-09-10] MEDS: duloxetine 20 mg Capsule PO ×2 (08:05→17:26)
[2024-09-10] MEDS: clopidogrel 75 mg Tablet PO (08:05)
[2024-09-10] MEDS: pantoprazole DR 40 mg Tablet PO (08:05)
[2024-09-10] MEDS: isosorbide mononitrate ER 60 mg Tablet PO (08:05)
[2024-09-10] MEDS: potassium chloride ER 20 mEq Tablet 40 MEQ PO (08:05)
[2024-09-10] MEDS: aspirin 81 mg EC Tablet PO (08:05)
[2024-09-10] MEDS: sacubitril/valsartan 24-26 mg Tablet 1 EACH PO ×2 (08:05→17:26)
[2024-09-10] MEDS: nicotine 14 mg Patch 1 PATCH TRANSDERMA (08:06)
[2024-09-10] MEDS: FUROsemide 10 mg/mL SDV 10mL 80 MG IVP (11:05)
[2024-09-10 11:24] LABS: Glucose Point of Care 196 mg/dL (70-110)
[2024-09-10] MEDS: insulin lispro 100 unit/1 mL SUBCUT (12:11)
--- NOTE | 2024-09-10 14:08 | P.PN_ITS ---
Subjective 2 Subjective: seen this am no acute events overnight 15L neg since admission. legs appeared improved Vitals/I&O/Wt Last Vital Signs Temp 97.7 F 09/10/24 12:00 Pulse 89 09/10/24 12:00 Resp 23 H 09/10/24 12:10 BP 140/72 09/10/24 12:00 Pulse Ox 94 09/10/24 12:10 O2 Del Method Room Air 09/10/24 12:00 O2 Flow Rate 2 09/06/24 08:53 FiO2 21 09/03/24 08:17 09/09/24 09/10/24 09/10/24 22:59 06:59 14:59 Intake Total 200 / 1020 300 / 1320 460 / 460 Output Total 800 / 4150 3200 / 7350 3450 / 3450 Balance -600 / -3130 -2900 / -6030 -2990 / -2990 Weight last 48 hrs Weight 120.656 kg Weight 120.656 kg Physical Exam 2 Narrative: General: Alert oriented x3, patient seen laying in bed, obese large body habitus HEENT: Normocephalic, atraumatic, EOMI, breathing room air Cardio: Regular rate rhythm, normal S1-S2, Respiratory: Clear to auscultation bilaterally no wheezes or rhonchi at this time. GI: Abdomen soft, nontender, distended obese rounded, bowel sounds + Extremities: 2+ bilateral pitting edema up to thighs with numerous excoriations bilateral lower extremities and weeping lesions. Yellow fluid draining from right leg. Edema quite improved. Able to Doppler pulses bilateral feet.not much change in edema in last few days but improved since admission. , MILD wrinkling noted at ankles, few blisters close to ankles have ruptured Urinary Catheter Management: Burciaga: Cath Placed During This Visit: yes Reason for Continuing Indwelling Catheter: Accurate Measurement of Urinary Output in Critically Ill Patients Urinary Catheter Date of Insertion: 08/31/24 Urinary Catheter Time of Insertion: 19:00 Data 09/10/24 04:17 09/10/24 04:17 A&P Assessment and plan (1) Benign essential HTN: (2) CHF (congestive heart failure): (3) Ischemic cardiomyopathy: (4) CAD (coronary artery disease): (5) PAD (peripheral artery disease): (6) Hypercholesteremia: (7) GERD (gastroesophageal reflux disease): (8) COPD (chronic obstructive pulmonary disease): Qualifiers: COPD type: emphysema Emphysema type: centrilobular Qualified Code(s): J43.2 - Centrilobular emphysema (9) Obstructive sleep apnea: (10) Bilateral edema of lower extremity: (11) Cellulitis: Plan #Acute on chronic congestive systolic heart failure exacerbation #Diabetes mellitus, insulin-dependent #Cellulitis right lower extremity #Acute limb ischemia?ruled out. #Peripheral arterial disease #Dyslipidemia, hypertension #Peripheral neuropathy #GERD #Coronary artery disease status post PCI #History of STEMI, NSTEMI ? Patient did get a 60 IV Lasix in ER. Will place on 60 IV twice daily going forward. ? BNP 27,000. Will check lactic acid ? Check sputum culture Gram stain, patient did complain of expectorating brownish sputum. ? Check blood cultures, check urine culture ? Will place Burciaga catheter for accurate output. Does have a history of BPH. ? Patient on room air at this time. Will add DuoNeb every 6 hours as needed. ? Will check arterial Dopplers bilaterally and venous Dopplers ? Chest x-ray does show peripheral mid to lower left lung hazy opacities compatible with atelectasis or developing infection in the proper clinical setting. ? Will place on vancomycin and Zosyn for possible pneumonia and to cover for lower extremity cellulitis. Will have pharmacy to dose medications. ? Continue patient on home dose Lantus 70 units daily with 30 units at bedtime. Will add moderate dose intensity sliding scale insulin. ? Check hemoglobin A1c ? Will check C-reactive protein, procalcitonin ? Will hold off on septic bolus at this time. Patient does not meet sepsis criteria. He is hemodynamically stable. White count is 13,000. ? He would like to be a full code. -I will hold home Entresto ranolazine at this time. Continue Imdur, aspirin, Plavix, carvedilol. ? Lasix 60 IV twice daily. Add potassium 20 mEq daily. -Patient hyponatremic with sodium 128 most likely secondary to hypervolemia. -Check echocardiogram -EKG without any acute ischemic changes. Does have first-degree AV block. Full code DVT prophylaxis: Heparin subcu twice daily Patient has multiple comorbid conditions and is experiencing lower extremity cellulitis, possible pneumonia, heart failure exacerbation. He will most likely require greater than 72-hour stay for management of above issues. 09/01/2024 - arterial dopplers Abnormal arterial waveforms in both lower extremities suggesting hemodynamically significant stenoses without total occlusion. Correlation with CT angiography and vascular evaluation is recommended. - No sonographic evidence of deep venous thrombosis in either lower extremity. CXR shows: Peripheral mid to lower left lung hazy opacities compatible with atelectasis or developing infection in the proper clinical setting. - sodium 131, most likely 2/2 to hypervolemia - cr 1.2 today lactic acid 2.7. bandemia present. - sepsis 2/2 to pna, vs le cellulitis - place on ns @ 75 cc/hr gentle fluid hydration. hold lasix for now - check ct chest abd pelvis, right leg, abd aorta run-off - cardiology consult. will discuss regarding dobutamine gtt? - hold entresto, hold ranolzaine. - bp soft, reduce imdur to 60 daily - cut down coreg to 6.25 bid - check echo, pending. - lactic acid possibly elevated due to worsening heart failure, vs infection. pt may require icu transfer for dobutamine gtt and lasix. Pt did get lasix 60 iv 3 doses since admission, and did not have adequate urine output. last echo shows EF 40% 202209/02/2024 - - arterial dopplers Abnormal arterial waveforms in both lower extremities suggesting hemodynamically significant stenoses without total occlusion. Correlation with CT angiography and vascular evaluation is recommended. - No sonographic evidence of deep venous thrombosis in either lower extremity. CXR shows: Peripheral mid to lower left lung hazy opacities compatible with atelectasis or developing infection in the proper clinical setting. ? Patient has evidence of right lower limb ischemia. Leg has developed worsening blisters, weeping, worsening redness. Initial troponin 185, lactic acid 3.8 yesterday. Repeat lactic acid pending from this morning. ? Sodium worsened to 125, creatinine 1.4. Patient did receive contrast yesterday for CT abdomen runoff. ? CT aorta runoff shows right superficial femoral artery occluded at origin, patent iliac artery system and common femoral arteries bilaterally. Poor runoff to the ankles bilaterally with no evidence of posterior tibial arteries. Diffuse body wall anasarca. ? Will place patient on heparin drip. ? Discussed with cardiology. pre owned sales manager will be evaluating patient to make final determination. Patient may need vascular surgery referral. ? Continue Lasix 60 IV every 8 hours ? Placed on dobutamine drip low-dose. Patient currently on Levophed 4 mics per hour. Has been hypotensive. ? Stop spironolactone ? Stop Lantus. He has been hypoglycemic overnight. ? He does have worsening kidney function. ? Continue renally dosed vancomycin and Zosyn at this time. ? Blood cultures pending ? Carvedilol 3.125 twice daily ordered however held this morning secondary to hypotension. ? Continue aspirin, Plavix. ? Patient has multiple comorbid conditions at this time and will benefit [facility] of his medical issues. As per recommendations from cardiology will attempt to transfer. ? Echo from this admission did show worsening EF of 30%. 09/03/2024 -Right lower limb acute ischemia ruled out. ? Patient improving. Continue dobutamine drip at 2.5/h, continue Lasix 60 IV 3 times daily. ? Replete potassium ? Continue to hold nephrotoxics ? Continue to hold Lantus. Continue insulin sliding scale moderate dose intensity ? Continue vancomycin and Zosyn ? Blood cultures pending, negative to date ? Continue aspirin Plavix, heparin drip. ? Platelets 62,000. Continue to monitor. Will send over HIT panel. Check heparin-induced antibodies ? Check CBC at 6 PM. If platelets further declining. Will stop heparin drip and switch to argatroban. ? Nephrology following. ? Lactic acid is normalized. Cardiology following. No acute need to transfer patient at this time. Limb ischemia ruled out. Echo from this admission did show worsening EF of 30% 09/04/2024 - platelets stable at 62K, no further drop - Continue dobutamine, continue to diurese - switch to lasix 40 IV BID - recheck labs in AM - will consider diamox tomorrow - EF 30% - continue current managment ? Continue vancomycin and Zosyn ? Blood cultures pending, negative to date ? Continue aspirin Plavix, heparin drip. - order phosphorus orally 09/05/2024 - cbc pending - stop dobutamine, continue to diurese - continue lasix 40 IV BID - recheck labs in AM - EF 30% - continue current managment ? Continue vancomycin and Zosyn ? Blood cultures pending, negative to date ? Continue aspirin Plavix, heparin drip stopped, pt switched to therapeutic lovenox - check phosphorus, cbc cmp in am - discussed plan with cardiology going forward 09/06/2024 -Switch to Lasix 80 IV twice daily. If urine output does not increase may consider adding dobutamine. Patient needs to be in a higher net negative balance. Continue fluid restriction. ? EF 30% ? Continue vancomycin and Zosyn Respiratory culture positive, final is pending Continue aspirin Plavix Stop heparin drip, stop therapeutic Lovenox. Continue to monitor platelet count. If evidence of thrombosis will need to place patient on Eliquis. Discussed with hematology. ? Plan for peripheral angiogram upcoming Thursday as long as platelet count higher. Discussed with cardiology and went over CT aorta runoff. Continue Solu-Medrol 40 daily Wean off oxygen as able 09/08/2024 - transfer to [facility] - continue to diurese with lasix 80 iv bid, add metolazone 5 mg to be given 30 minutes before morning Lasix dose. - continue to monitor electrolytes -He has completed 7 days of vancomycin and Zosyn. I will stop antibiotics at this time. ? Patient still has significant lower extremity edema bilaterally with legs weeping. ? Net 4 L negative since admission. Measure daily weights. Discussed with nephrology over the phone as well. ? Will avoid further heparin products. ? Continue aspirin and Plavix. ? Platelets are improving. Heparin-induced antibody negative. 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 Further on heparin should be avoided. If needed Eliquis may be added. - platelets improving, HIT panel pending, avoid heparin products - plan for peripheral angiogram at some point. - continue solumedrol 40 iv daily - PT/OT ? Sodium 134. ? Patient's breathing has improved secondary to pneumonia being treated. ? Will complete Solu-Medrol 40 mg daily total for 5 days. ? Will discuss with cardiology regarding his further plan. If patient does not have adequate diuresis and improving and lower extremity edema may consider addition of dobutamine ? Entresto started by cardiology. Will continue. 09/09/2024 - continue to diurese with lasix 80 iv bid, add metolazone 5 mg to be given 30 minutes before morning Lasix dose. - continue to monitor electrolytes - ? Platelets are improving. Heparin-induced antibody negative. 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 Further on heparin should be avoided. If needed Eliquis may be added. - platelets improving, HIT panel pending, avoid heparin products - plan for peripheral angiogram at some point. ? Entresto started by cardiology. Will continue. 09/10/2024 -Patient is urine output has finally picked up. He is 15 L negative since admission. Legs are visibly also appearing better in terms of edema. ? Continue to monitor electrolytes and replete as needed. Bicarb 32. Patient starting to get alkalotic. ? I will switch to oral Lasix today 80 p.o. twice daily. Will stop metolazone ? Platelets are improving heparin-induced antibody negative. Suspicion of type I HIT. ? Platelets 92,000. ? Peripheral angiogram once platelets greater than 100,000 ? Continue Entresto ? Follow cardiology recommendations. ? Patient's venous reflux studies are negative however there is a strong clinical suspicion of venous insufficiency. I discussed that with the patient that he must mobilize and try to walk which will help with his edema. I will also recommend compression stockings at discharge. ? Patient states he is able to stand however has not attempted to walk it. I have encouraged ambulation. ? Discussed with cardiology at length over the phone. Further recommendations to be made by the table cover folder. Attestations 2 Medical Necessity Statement*: Continue to hospitalize patient at this time. He is currently being diuresed, eventually will need a peripheral angiogram once platelets are greater than 100,000. Diagnoses Benign essential HTN I10 CHF (congestive heart failure) I50.9 Ischemic cardiomyopathy I25.5 CAD (coronary artery disease) I25.10 PAD (peripheral artery disease) I73.9 Hypercholesteremia E78.00 GERD (gastroesophageal reflux disease) K21.9 Centrilobular emphysema J43.2 COPD type: emphysema Emphysema type: centrilobular Obstructive sleep apnea G47.33 Bilateral edema of lower extremity R60.0 Cellulitis L03.90
[2024-09-10] MEDS: FUROsemide 40 mg Tablet 80 MG PO (15:50)
[2024-09-10 17:28] LABS: Glucose Point of Care 117 mg/dL (70-110)
[2024-09-10 20:59] LABS: Glucose Point of Care 161 mg/dL (70-110)
[2024-09-11] VITALS (12 sets, daily range): BP systolic 105–127; BP diastolic 62–75; PULSE 88–128; RESP 15–28; TEMP 36.3–36.8; O2SAT 91–97
[2024-09-11] MEDS: HYDROmorphone 1 mg/mL INJ 1 mL 0.4 MG IVP ×5 (02:35→21:20)
[2024-09-11 05:07] LABS: Basophils % 0.4 %; Eosinophils # 0.1 10^3/uL (0.0-0.8); Eosinophils % 0.5 %; Hematocrit 41.6 % (37-53); Lymphocytes # 1.1 10^3/uL (0.8-4.8); Lymphocytes % 10.4 %; Mean Corpuscular HGB Conc 32.7 g/dL (30-55); Mean Corpuscular Hemoglobin 27.4 pg (27-33); Mean Corpuscular Volume 83.9 fl (82-101); Mean Platelet Volume 10.3 fL (7.4-10.4); Monocytes # 0.5 10^3/uL (0.2-0.9); Monocytes % 4.2 %; Neutrophils # 9.11 10^3/uL (1.8-7.7); Neutrophils % 83.8 %; Nucleated Red Blood Cells % 0 %; Platelet Count 94 10^3/cmm (157-399); Red Blood Count 4.96 10^6/uL (3.85-5.65); Red Cell Distribution Width 18.1 % (12.1-15.1); White Blood Count 10.87 10^3/uL (3.29-11.43)
[2024-09-11 05:26] LABS: Anion Gap 12.1 (5-19); Blood Urea Nitrogen 33 mg/dL (6-20); Calcium 8.8 mg/dL (8.5-10.5); Carbon Dioxide 33 mmol/L (22-29); Chloride 89 mmol/L (98-107); Creatinine Clr Calc Pharmacy 144.7928; Glomerular Filtration Rate 116.2 mL/min (90-130); Glucose 123 mg/dL (65-115); Magnesium 1.9 mg/dL (1.7-2.3); Osmolality Calculated 279 mOsm/kg (285-295); Potassium 4.1 mmol/L (3.5-5.1); Sodium 130 mmol/L (136-145)
--- NOTE | 2024-09-11 05:57 | PM.PN ---
Subjective Subjective: 19.8L neg since admission feels better b/l edema improving denies any complaints at this time. Vitals/I&O/Wt Last Vital Signs Temp 98.2 F 09/11/24 04:00 Pulse 128 H 09/11/24 04:00 Resp 27 H 09/11/24 04:00 BP 110/72 09/11/24 04:00 Pulse Ox 95 09/11/24 04:00 O2 Del Method Room Air 09/11/24 04:00 O2 Flow Rate 2 09/06/24 08:53 FiO2 21 09/03/24 08:17 09/10/24 09/10/24 09/11/24 14:59 22:59 06:59 Intake Total 460 / 460 250 / 710 400 / 1110 Output Total 3450 / 3450 2875 / 6325 2400 / 8725 Balance -2990 / -2990 -2625 / -5615 -2000 / -7615 Weight last 48 hrs Weight 120.656 kg Weight 120.656 kg Weight 120.656 kg Physical Exam Narrative: General: Alert oriented x3, patient seen laying in bed, obese large body habitus HEENT: Normocephalic, atraumatic, EOMI, breathing room air Cardio: Regular rate rhythm, normal S1-S2, Respiratory: Clear to auscultation bilaterally no wheezes or rhonchi at this time. GI: Abdomen soft, nontender, distended obese rounded, bowel sounds + Extremities: 2+ bilateral pitting edema up to thighs with numerous excoriations bilateral lower extremities and weeping lesions. Yellow fluid draining from right leg. Edema quite improved. Able to Doppler pulses bilateral feet.not much change in edema in last few days but improved since admission. , more wrinkling noted at ankles, few blisters close to ankles have ruptured Urinary Catheter Management: Burciaga: Cath Placed During This Visit: yes Reason for Continuing Indwelling Catheter: Accurate Measurement of Urinary Output in Critically Ill Patients Urinary Catheter Date of Insertion: 08/31/24 Urinary Catheter Time of Insertion: 19:00 Data 09/11/24 04:41 09/11/24 04:41 A&P Assessment and plan (1) Benign essential HTN: (2) CHF (congestive heart failure): (3) Ischemic cardiomyopathy: (4) CAD (coronary artery disease): (5) PAD (peripheral artery disease): (6) Hypercholesteremia: (7) GERD (gastroesophageal reflux disease): (8) COPD (chronic obstructive pulmonary disease): Qualifiers: COPD type: emphysema Emphysema type: centrilobular Qualified Code(s): J43.2 - Centrilobular emphysema (9) Obstructive sleep apnea: (10) Bilateral edema of lower extremity: (11) Cellulitis: Plan #Acute on chronic congestive systolic heart failure exacerbation #Diabetes mellitus, insulin-dependent #Cellulitis right lower extremity #Acute limb ischemia?ruled out. #Peripheral arterial disease #Dyslipidemia, hypertension #Peripheral neuropathy #GERD #Coronary artery disease status post PCI #History of STEMI, NSTEMI ? Patient did get a 60 IV Lasix in ER. Will place on 60 IV twice daily going forward. ? BNP 27,000. Will check lactic acid ? Check sputum culture Gram stain, patient did complain of expectorating brownish sputum. ? Check blood cultures, check urine culture ? Will place Burciaga catheter for accurate output. Does have a history of BPH. ? Patient on room air at this time. Will add DuoNeb every 6 hours as needed. ? Will check arterial Dopplers bilaterally and venous Dopplers ? Chest x-ray does show peripheral mid to lower left lung hazy opacities compatible with atelectasis or developing infection in the proper clinical setting. ? Will place on vancomycin and Zosyn for possible pneumonia and to cover for lower extremity cellulitis. Will have pharmacy to dose medications. ? Continue patient on home dose Lantus 70 units daily with 30 units at bedtime. Will add moderate dose intensity sliding scale insulin. ? Check hemoglobin A1c ? Will check C-reactive protein, procalcitonin ? Will hold off on septic bolus at this time. Patient does not meet sepsis criteria. He is hemodynamically stable. White count is 13,000. ? He would like to be a full code. -I will hold home Entresto ranolazine at this time. Continue Imdur, aspirin, Plavix, carvedilol. ? Lasix 60 IV twice daily. Add potassium 20 mEq daily. -Patient hyponatremic with sodium 128 most likely secondary to hypervolemia. -Check echocardiogram -EKG without any acute ischemic changes. Does have first-degree AV block. Full code DVT prophylaxis: Heparin subcu twice daily Patient has multiple comorbid conditions and is experiencing lower extremity cellulitis, possible pneumonia, heart failure exacerbation. He will most likely require greater than 72-hour stay for management of above issues. 09/01/2024 - arterial dopplers Abnormal arterial waveforms in both lower extremities suggesting hemodynamically significant stenoses without total occlusion. Correlation with CT angiography and vascular evaluation is recommended. - No sonographic evidence of deep venous thrombosis in either lower extremity. CXR shows: Peripheral mid to lower left lung hazy opacities compatible with atelectasis or developing infection in the proper clinical setting. - sodium 131, most likely 2/2 to hypervolemia - cr 1.2 today lactic acid 2.7. bandemia present. - sepsis 2/2 to pna, vs le cellulitis - place on ns @ 75 cc/hr gentle fluid hydration. hold lasix for now - check ct chest abd pelvis, right leg, abd aorta run-off - cardiology consult. will discuss regarding dobutamine gtt? - hold entresto, hold ranolzaine. - bp soft, reduce imdur to 60 daily - cut down coreg to 6.25 bid - check echo, pending. - lactic acid possibly elevated due to worsening heart failure, vs infection. pt may require icu transfer for dobutamine gtt and lasix. Pt did get lasix 60 iv 3 doses since admission, and did not have adequate urine output. last echo shows EF 40% 202209/02/2024 - - arterial dopplers Abnormal arterial waveforms in both lower extremities suggesting hemodynamically significant stenoses without total occlusion. Correlation with CT angiography and vascular evaluation is recommended. - No sonographic evidence of deep venous thrombosis in either lower extremity. CXR shows: Peripheral mid to lower left lung hazy opacities compatible with atelectasis or developing infection in the proper clinical setting. ? Patient has evidence of right lower limb ischemia. Leg has developed worsening blisters, weeping, worsening redness. Initial troponin 185, lactic acid 3.8 yesterday. Repeat lactic acid pending from this morning. ? Sodium worsened to 125, creatinine 1.4. Patient did receive contrast yesterday for CT abdomen runoff. ? CT aorta runoff shows right superficial femoral artery occluded at origin, patent iliac artery system and common femoral arteries bilaterally. Poor runoff to the ankles bilaterally with no evidence of posterior tibial arteries. Diffuse body wall anasarca. ? Will place patient on heparin drip. ? Discussed with cardiology. supervisor fish bait processing will be evaluating patient to make final determination. Patient may need vascular surgery referral. ? Continue Lasix 60 IV every 8 hours ? Placed on dobutamine drip low-dose. Patient currently on Levophed 4 mics per hour. Has been hypotensive. ? Stop spironolactone ? Stop Lantus. He has been hypoglycemic overnight. ? He does have worsening kidney function. ? Continue renally dosed vancomycin and Zosyn at this time. ? Blood cultures pending ? Carvedilol 3.125 twice daily ordered however held this morning secondary to hypotension. ? Continue aspirin, Plavix. ? Patient has multiple comorbid conditions at this time and will benefit from tertiary [facility] approach of his medical issues. As per recommendations from cardiology will attempt to transfer. ? Echo from this admission did show worsening EF of 30%. 09/03/2024 -Right lower limb acute ischemia ruled out. ? Patient improving. Continue dobutamine drip at 2.5/h, continue Lasix 60 IV 3 times daily. ? Replete potassium ? Continue to hold nephrotoxics ? Continue to hold Lantus. Continue insulin sliding scale moderate dose intensity ? Continue vancomycin and Zosyn ? Blood cultures pending, negative to date ? Continue aspirin Plavix, heparin drip. ? Platelets 62,000. Continue to monitor. Will send over HIT panel. Check heparin-induced antibodies ? Check CBC at 6 PM. If platelets further declining. Will stop heparin drip and switch to argatroban. ? Nephrology following. ? Lactic acid is normalized. Cardiology following. No acute need to transfer patient at this time. Limb ischemia ruled out. Echo from this admission did show worsening EF of 30% 09/04/2024 - platelets stable at 62K, no further drop - Continue dobutamine, continue to diurese - switch to lasix 40 IV BID - recheck labs in AM - will consider diamox tomorrow - EF 30% - continue current managment ? Continue vancomycin and Zosyn ? Blood cultures pending, negative to date ? Continue aspirin Plavix, heparin drip. - order phosphorus orally 09/05/2024 - cbc pending - stop dobutamine, continue to diurese - continue lasix 40 IV BID - recheck labs in AM - EF 30% - continue current managment ? Continue vancomycin and Zosyn ? Blood cultures pending, negative to date ? Continue aspirin Plavix, heparin drip stopped, pt switched to therapeutic lovenox - check phosphorus, cbc cmp in am - discussed plan with cardiology going forward 09/06/2024 -Switch to Lasix 80 IV twice daily. If urine output does not increase may consider adding dobutamine. Patient needs to be in a higher net negative balance. Continue fluid restriction. ? EF 30% ? Continue vancomycin and Zosyn Respiratory culture positive, final is pending Continue aspirin Plavix Stop heparin drip, stop therapeutic Lovenox. Continue to monitor platelet count. If evidence of thrombosis will need to place patient on Eliquis. Discussed with hematology. ? Plan for peripheral angiogram upcoming Thursday as long as platelet count higher. Discussed with cardiology and went over CT aorta runoff. Continue Solu-Medrol 40 daily Wean off oxygen as able 09/08/2024 - transfer to [facility] - continue to diurese with lasix 80 iv bid, add metolazone 5 mg to be given 30 minutes before morning Lasix dose. - continue to monitor electrolytes -He has completed 7 days of vancomycin and Zosyn. I will stop antibiotics at this time. ? Patient still has significant lower extremity edema bilaterally with legs weeping. ? Net 4 L negative since admission. Measure daily weights. Discussed with nephrology over the phone as well. ? Will avoid further heparin products. ? Continue aspirin and Plavix. ? Platelets are improving. Heparin-induced antibody negative. 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 Further on heparin should be avoided. If needed Eliquis may be added. - platelets improving, HIT panel pending, avoid heparin products - plan for peripheral angiogram at some point. - continue solumedrol 40 iv daily - PT/OT ? Sodium 134. ? Patient's breathing has improved secondary to pneumonia being treated. ? Will complete Solu-Medrol 40 mg daily total for 5 days. ? Will discuss with cardiology regarding his further plan. If patient does not have adequate diuresis and improving and lower extremity edema may consider addition of dobutamine ? Entresto started by cardiology. Will continue. 09/09/2024 - continue to diurese with lasix 80 iv bid, add metolazone 5 mg to be given 30 minutes before morning Lasix dose. - continue to monitor electrolytes - ? Platelets are improving. Heparin-induced antibody negative. 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 Further on heparin should be avoided. If needed Eliquis may be added. - platelets improving, HIT panel pending, avoid heparin products - plan for peripheral angiogram at some point. ? Entresto started by cardiology. Will continue. 09/10/2024 -Patient is urine output has finally picked up. He is 15 L negative since admission. Legs are visibly also appearing better in terms of edema. ? Continue to monitor electrolytes and replete as needed. Bicarb 32. Patient starting to get alkalotic. ? I will switch to oral Lasix today 80 p.o. twice daily. Will stop metolazone ? Platelets are improving heparin-induced antibody negative. Suspicion of type I HIT. ? Platelets 92,000. ? Peripheral angiogram once platelets greater than 100,000 ? Continue Entresto ? Follow cardiology recommendations. ? Patient's venous reflux studies are negative however there is a strong clinical suspicion of venous insufficiency. I discussed that with the patient that he must mobilize and try to walk which will help with his edema. I will also recommend compression stockings at discharge. ? Patient states he is able to stand however has not attempted to walk it. I have encouraged ambulation. ? Discussed with cardiology at length over the phone. Further recommendations to be made by the mechanical sound technician. 09/11/2024 - 19L neg sine admission. LE edema improving - switch to lasix 60 po bid - Platelets are improving heparin-induced antibody negative. Suspicion of type I HIT. - Peripheral angiogram once platelets greater than 100,000 ? Continue Entresto ? Follow cardiology recommendations. ? Patient's venous reflux studies are negative however there is a strong clinical suspicion of venous insufficiency. I discussed that with the patient that he must mobilize and try to walk which will help with his edema. I will also recommend compression stockings at discharge. Attestations Medical Necessity Statement*: Continue to hospitalize patient at this time. He is currently being diuresed, eventually will need a peripheral angiogram once platelets are greater than 100,000. Diagnoses Benign essential HTN I10 CHF (congestive heart failure) I50.9 Ischemic cardiomyopathy I25.5 CAD (coronary artery disease) I25.10 PAD (peripheral artery disease) I73.9 Hypercholesteremia E78.00 GERD (gastroesophageal reflux disease) K21.9 Centrilobular emphysema J43.2 COPD type: emphysema Emphysema type: centrilobular Obstructive sleep apnea G47.33 Bilateral edema of lower extremity R60.0 Cellulitis L03.90
[2024-09-11 06:25] LABS: Glucose Point of Care 119 mg/dL (70-110)
[2024-09-11] MEDS: aspirin 81 mg EC Tablet PO (07:58)
[2024-09-11] MEDS: pantoprazole DR 40 mg Tablet PO (07:58)
[2024-09-11] MEDS: tamsulosin 0.4 mg Capsule PO (07:58)
[2024-09-11] MEDS: nicotine 14 mg Patch 1 PATCH TRANSDERMA (07:59)
[2024-09-11] MEDS: duloxetine 20 mg Capsule PO ×2 (07:59→17:16)
[2024-09-11] MEDS: sacubitril/valsartan 24-26 mg Tablet 1 EACH PO ×2 (07:59→17:16)
[2024-09-11] MEDS: clopidogrel 75 mg Tablet PO (07:59)
[2024-09-11] MEDS: potassium chloride ER 20 mEq Tablet 40 MEQ PO (07:59)
[2024-09-11] MEDS: isosorbide mononitrate ER 60 mg Tablet PO (07:59)
[2024-09-11] MEDS: FUROsemide 40 mg Tablet 80 MG PO ×2 (07:59→15:25)
[2024-09-11 11:39] LABS: Glucose Point of Care 156 mg/dL (70-110)
[2024-09-11] MEDS: insulin lispro 100 unit/1 mL SUBCUT ×2 (12:00→17:16)
[2024-09-11 17:13] LABS: Glucose Point of Care 156 mg/dL (70-110)
--- NOTE | 2024-09-11 17:24 | P.PN_ITS ---
Subjective 2 Subjective: Continues to diurese patient has been switched to p.o. Lasix Medications: Reviewed: Yes Medication Review Details: Current Medications Acetaminophen (Acetaminophen 325 Mg Tablet) 650 mg PO Q6H PRN PRN Reason: Mild/Mod Pain Or Temp >/= 101 Last Admin: 09/02/24 14:50 Dose: 650 mg Hydrocodone Bitart/Acetaminophen (Hydrocodone-Acetaminophen 10-325 Mg Tablet) 1 tab PO QID PRN PRN Reason: Pain Last Admin: 09/04/24 02:06 Dose: 1 tab Albuterol/Ipratropium (Ipratropium-Albuterol 3 Ml Neb) 3 ml INHALATION Q6H PRN PRN Reason: SHORTNESS OF BREATH Last Admin: 09/03/24 08:10 Dose: 3 ml Aspirin (Aspirin 81 Mg Ec Tablet) 81 mg PO DAILY [facility] Last Admin: 09/03/24 09:00 Dose: 81 mg Clopidogrel Bisulfate (Clopidogrel 75 Mg Tablet) 75 mg PO DAILY [facility] Last Admin: 09/03/24 09:00 Dose: 75 mg Denture Adhesive (Efferdent Effervescent) 1 each DENTAL PRN PRN PRN Reason: dental care Last Admin: 09/03/24 23:26 Dose: 1 each Duloxetine HCl (Duloxetine 20 Mg Capsule) 20 mg PO BID [facility] Last Admin: 09/03/24 18:21 Dose: 20 mg Furosemide (Furosemide 10 Mg/Ml Sdv 10ml) 60 mg IVP Q8H [facility] Last Admin: 09/04/24 04:29 Dose: 60 mg Glucagon (Glucagon 1 Mg/Ml Kit 1 Ml) 1 mg IM ONCE PRN; Protocol PRN Reason: Adult Acute Hypoglycemia Nursing Prot. Heparin Sodium (Porcine) (Heparin 5,000 Unit/Ml Inj 1 Ml) 5,000 unit SUBCUT Q12H [facility] Last Admin: 09/02/24 05:21 Dose: 5,000 unit Heparin Sodium (Porcine) (Heparin 5,000 Unit/Ml Inj 1 Ml) 0 unit IVP PRN PRN; Protocol PRN Reason: Heparin Weight Based Protocol -Subsequent Bolus Last Admin: 09/03/24 10:27 Dose: 200 unit Piperacillin Sod/Tazobactam (Sod 3.375 gm/ Sodium Chloride) 50 mls @ 12.5 mls/hr IV Q8H [facility] Last Infusion: 12/08/24 06:13 Dose: Infused Dextrose (D5w) 500 mls @ 0 mls/hr IV ONCE PRN; Protocol PRN Reason: Adult Acute Hypoglycemia Prot Dextrose (D10w) 125 mls @ 750 mls/hr IV PRN PRN; Protocol PRN Reason: Adult Acute Hypoglycemia Nursing Protocol Last Infusion: 09/02/24 05:50 Dose: Infused Dextrose (D10w) 250 mls @ 1,000 mls/hr IV PRN PRN; Protocol PRN Reason: Adult Acute Hypoglycemia Nursing Protocol Norepinephrine Bitartrate (Levophed) 4 mg in 250 mls @ 0 mls/hr IV .Q0M [facility]; Protocol Last Titration: 09/02/24 13:00 Dose: 0 mcg/min, 0 mls/hr Heparin Sodium/Sodium Chloride (Heparin Drip) 25,000 unit in 500 mls @ 0 mls/hr IV CONT [facility]; Protocol Last Titration: 09/04/24 00:25 Dose: 10.85 unit/kg/hr, 28 mls/hr Dobutamine HCl/Dextrose (Dobutamine Drip) 500 mg in 250 mls @ 0 mls/hr IV .Q0M [facility]; Protocol Last Admin: 09/03/24 09:05 Dose: 2.5 mcg/kg/min, 9.68 mls/hr Vancomycin HCl (Vancocin) 1,750 mg in 350 mls @ 175 mls/hr IV Q18H [facility] Last Infusion: 09/03/24 20:28 Dose: Infused Insulin Human Lispro (Insulin Lispro 100 Unit/1 Ml) 0 unit SUBCUT WM&BEDTIME [facility]; Protocol Last Admin: 09/03/24 21:26 Dose: 4 unit Isosorbide Mononitrate (Isosorbide Mononitrate Er 60 Mg Tablet) 60 mg PO DAILY [facility] Morphine Sulfate (Morphine 4 Mg/Ml Sdv 1 Ml) 2 mg IVP Q4H PRN PRN Reason: SEVERE PAIN Last Admin: 09/03/24 14:39 Dose: 2 mg Nicotine (Nicotine 14 Mg Patch) 1 patch TRANSDERMA DAILY [facility] Last Admin: 09/03/24 09:01 Dose: 1 patch Ondansetron HCl (Ondansetron 2 Mg/Ml Sdv 2 Ml) 4 mg IVP Q8H PRN PRN Reason: vomiting, or N/V if npo Pantoprazole Sodium (Pantoprazole Dr 40 Mg Tablet) 40 mg PO DAILY [facility] Last Admin: 09/03/24 09:00 Dose: 40 mg Potassium Chloride (Potassium Chloride Er 20 Meq Tablet) 20 meq PO Q24H [facility] Last Admin: 09/03/24 06:25 Dose: 20 meq Ranolazine (Ranolazine (12hr) 500 Mg Tablet) 500 mg PO BID [facility] Last Admin: 08/31/24 22:27 Dose: 500 mg Spironolactone (Spironolactone 25 Mg Tablet) 25 mg PO DAILY [facility] Last Admin: 09/02/24 08:48 Dose: 25 mg Tamsulosin HCl (Tamsulosin 0.4 Mg Capsule) 0.4 mg PO DAILY [facility] Last Admin: 09/03/24 09:00 Dose: 0.4 mg Vitals/I&O/Wt Last Vital Signs Temp 97.7 F 09/11/24 16:00 Pulse 109 H 09/11/24 16:00 Resp 20 H 09/11/24 17:17 BP 114/74 09/11/24 16:00 Pulse Ox 94 09/11/24 17:17 O2 Del Method Room Air 09/11/24 12:00 O2 Flow Rate 2 09/06/24 08:53 FiO2 21 09/03/24 08:17 09/11/24 09/11/24 09/11/24 06:59 14:59 22:59 Intake Total 400 / 1110 720 / 720 Output Total 2400 / 8725 2700 / 2700 1250 / 3950 Balance -1999 / -7615 -1979 / -1979 -1250 / -3230 Weight last 48 hrs Weight 266 lb Weight 266 lb Physical Exam 2 Const: OTHER: GENERAL: Patient is alert, awake and oriented x3. HEART: Regular S1 and S2. No murmur, rub or gallop. LUNGS: Clear to auscultate bilaterally. CENTRAL NERVOUS SYSTEM: Grossly nonfocal. EXTREMITIES: Lower extremities both leg bilateral 2+ edema with blisters, right leg has cellulitis, has dopplerable posterior tibial pulse in the right leg. Urinary Catheter Management: Burciaga: Cath Placed During This Visit: yes Reason for Continuing Indwelling Catheter: Accurate Measurement of Urinary Output in Critically Ill Patients Urinary Catheter Date of Insertion: 08/31/24 Urinary Catheter Time of Insertion: 19:00 Data 09/11/24 04:41 09/11/24 04:41 A&P Assessment and plan (1) Ischemic cardiomyopathy: Getting euvolemic, continue current regimen Lasix and metolazone continue to monitor potassium (2) PAD (peripheral artery disease): patient does not have acute limb ischemia lower extremity edema cellulitis and blisters contributing to swelling of the both leg and pain. Patient has dopplerable posterior tibial pulse in the right leg. Continue to diurese continue to apply antibiotics use IV antibiotics and wound care. Patient will need an angiogram at some point but at this time the lesion is chronic without evidence of acute ischemia. Patient will need to be optimized medically prior to any lower extremity intervention. Currently platelets are still low but improving at 87. Will avoid aspirin and Plavix at this time due to that. HARIKA antibodies negative so far. May be sepsis induced. Will add Entresto for heart failure. On today's visit dated 09/09 2024 patient lower extremity edema is improving. Platelets are improving months. Creatinine normalized may proceed with peripheral angiogram and attempt to revascularize right leg. On today's visit dated 09/11/2024 patient continues to do fine, foot remains warm moist once platelets improved more than 100 will plan for peripheral angiogram (3) Lower extremity edema: Venous reflux study did not show significant reflux, not sure about it evaluated he has clinically it appeared to me that patient may have underlying venous insufficiency however test was negative. At this point continue to diurese once platelets improve we will proceed with peripheral angiogram hopefully early next week. On today's visit 09/11/2024, lower extremity edema is improving right leg swelling has gone down considerably. Continue to monitor continue IV antibiotics diuresis and topical antibiotic management Plan Continues to improve thrombocytopenia. Attestations 2 Medical Necessity Statement*: Require continuation hospitalization for above defined care Coding Level of Care Code Acute Code for Chg Fwd Diagnoses Ischemic cardiomyopathy I25.5 PAD (peripheral artery disease) I73.9 Lower extremity edema R60.0
[2024-09-11 20:52] LABS: Glucose Point of Care 103 mg/dL (70-110)
[2024-09-11 22:22] LABS: Bilirubin Urine Negative (Negative); Blood Urine 2+ (Negative); Glucose Urine UA Negative (Normal); Ketones Urine Negative (Negative); Leukocyte Esterase Urine Negative (Negative); Nitrate Urine Negative (Negative); Protein Urine Negative (Negative); Specific Gravity, Urine 1.006 (1.005-1.030); Urine Appearance Clear (CLEAR); Urine Color Yellow (Yellow); Urobilinogen Urine 0.2 mg/dL (Negative)
[2024-09-11 22:26] LABS: Add Urine Microscopic? YES; Bacteria Urine None Seen /hpf; RBC Urine 21-50 /hpf (0-2); Squamous Epithelial Cell Urine 0-5 /hpf (0-5); WBC Urine 0-5 /hpf (0-5)
[2024-09-11 22:28] LABS: Add Urine Culture? Yes
[2024-09-12] VITALS (16 sets, daily range): BP systolic 104–132; BP diastolic 59–80; PULSE 81–123; RESP 14–24; TEMP 35.8–37; O2SAT 91–100
[2024-09-12] MEDS: HYDROmorphone 1 mg/mL INJ 1 mL 0.4 MG IVP ×5 (02:06→19:34)
[2024-09-12 03:48] LABS: Basophils # 0.1 10^3/uL (0.0-0.1); Basophils % 0.6 %; Eosinophils # 0.1 10^3/uL (0.0-0.8); Eosinophils % 0.4 %; Hematocrit 42.7 % (37-53); Lymphocytes # 1.4 10^3/uL (0.8-4.8); Lymphocytes % 11.5 %; Mean Corpuscular Hemoglobin 27.8 pg (27-33); Mean Corpuscular Volume 84.1 fl (82-101); Mean Platelet Volume 11.8 fL (7.4-10.4); Monocytes # 0.7 10^3/uL (0.2-0.9); Monocytes % 5.3 %; Neutrophils # 10.19 10^3/uL (1.8-7.7); Neutrophils % 81.6 %; Nucleated Red Blood Cells % 0 %; Platelet Count 113 10^3/cmm (157-399); Red Blood Count 5.08 10^6/uL (3.85-5.65); Red Cell Distribution Width 18.3 % (12.1-15.1); White Blood Count 12.48 10^3/uL (3.29-11.43)
[2024-09-12 04:27] LABS: Anion Gap 15.3 (5-19); Blood Urea Nitrogen 31 mg/dL (6-20); Calcium 8.9 mg/dL (8.5-10.5); Carbon Dioxide 33 mmol/L (22-29); Chloride 84 mmol/L (98-107); Creatinine Clr Calc Pharmacy 126.6937; Glomerular Filtration Rate 99.6 mL/min (90-130); Glucose 119 mg/dL (65-115); Magnesium 1.9 mg/dL (1.7-2.3); Osmolality Calculated 274 mOsm/kg (285-295); Potassium 4.3 mmol/L (3.5-5.1); Sodium 128 mmol/L (136-145)
[2024-09-12 04:39] LABS: Slide Review Slide Review Perform
[2024-09-12 07:42] LABS: Glucose Point of Care 124 mg/dL (70-110)
[2024-09-12] MEDS: nicotine 14 mg Patch 1 PATCH TRANSDERMA (09:20)
[2024-09-12] MEDS: tamsulosin 0.4 mg Capsule PO (09:22)
[2024-09-12] MEDS: pantoprazole DR 40 mg Tablet PO (09:22)
[2024-09-12] MEDS: isosorbide mononitrate ER 60 mg Tablet PO (09:22)
[2024-09-12] MEDS: metoprolol succinate ER (24 HR) 25 mg Tablet 12.5 MG PO (09:22)
[2024-09-12] MEDS: duloxetine 20 mg Capsule PO ×2 (09:22→17:47)
[2024-09-12] MEDS: aspirin 81 mg EC Tablet PO (09:23)
[2024-09-12] MEDS: potassium chloride ER 20 mEq Tablet 40 MEQ PO (09:23)
[2024-09-12] MEDS: sacubitril/valsartan 24-26 mg Tablet 1 EACH PO ×2 (09:23→17:47)
[2024-09-12] MEDS: clopidogrel 75 mg Tablet PO (09:25)
[2024-09-12] MEDS: FUROsemide 40 mg Tablet 80 MG PO ×2 (10:27→17:47)
--- NOTE | 2024-09-12 10:41 | ECG_ITS ---
[facility] Test Date: 2024-09-12 Pat Name: Yusuf Buck Department: Room: 106 Gender: Male Fence Installer: : [id number] Requested By: Lorenza Anderson Order Number: [id number] MD: Michelle Rodriguez M.D. Measurements Intervals [place] Rate: 91 P: 0 MD: 0 QRS: -37 QRSD: 99 T: 112 QT: 359 QTc: 444 Interpretive Statements ATRIAL FLUTTER/TACHYCARDIA LOW QRS VOLTAGE IN EXTREMITY LEADS [QRS DEFLECTION < 0.5 mV IN LIMB LEADS] INFERIOR MYOCARDIAL INFARCTION , PROBABLY OLD [40+ ms Q WAVE AND/OR ST/T ABNORMALITY IN II/aVF] ANTEROLATERAL MYOCARDIAL INFARCTION , PROBABLY RECENT [40+ ms Q WAVE IN I/aVL/V3-V6] ACUTE GA Compared to ECG 08/31/2024 15:03:05 Low QRS voltage now present.Sinus rhythm no longer present .First degree AV block no longer present . Myocardial infarct finding still present Electronically Signed On 09-12-2024 19:30:20 AGRIBUSINESS PROFESSOR by Michelle Rodriguez M.D. [email or web address]
[2024-09-12 11:31] LABS: Glucose Point of Care 143 mg/dL (70-110)
--- NOTE | 2024-09-12 12:29 | P.PN_ITS ---
Subjective 2 Subjective: Swelling in his legs has been improving. Overall his leg he states has been gradually showing improvement with few bullae having ruptured. Without further desquamation of the large ulcerated area on the anterior and bilateral aspects. Vitals/I&O/Wt Last Vital Signs Temp 97.5 F L 09/12/24 12:00 Pulse 120 H 09/12/24 12:00 Resp 24 H 09/12/24 12:00 BP 115/66 09/12/24 12:00 Pulse Ox 95 09/12/24 12:00 O2 Del Method Room Air 09/12/24 12:00 O2 Flow Rate 2 09/06/24 08:53 FiO2 21 09/03/24 08:17 09/11/24 09/12/24 09/12/24 22:59 06:59 14:59 Intake Total 220 / 940 200 / 1140 Output Total 2500 / 5200 1450 / 6650 950 / 950 Balance -2280 / -4260 -1250 / -5510 -950 / -950 Weight last 48 hrs Weight 103.691 kg Weight 120.656 kg Physical Exam 2 Const: COMMON NORMALS: patient oriented x3 and alert GENERAL APPEARANCE: c ooperative ORIENTATION/CONSCIOUSNESS: Yes awake HENMT: COMMON NORMALS: oropharynx normal Neck/C-Spine: COMMON NORMALS: no JVD Resp: COMMON NORMALS: normal respiratory effort and clear to auscultation bilaterally AUSCULTATION: clear to auscultation bilaterally Cardio: COMMON NORMALS: no JVD, regular rhythm, S1 normal heart sound present, S2 normal heart sound present and No murmurs present (Cardio) RHYTHM: regular rhythm HEART SOUNDS: S1 normal heart sound present and S2 normal heart sound present GI: COMMON NORMALS: Normal to inspection, nondistended, normoactive bowel sounds present, Soft to palpation and non-tender PALPATION: Yes Soft to palpation Extremity: COMMON NORMALS: no joint enlargement and no pedal edema N ARRATIVE EXTREMITY EXAM: Large irregular shallow ulceration/confluent ulceration beds, ruptured bullae, with desquamation, small amount of devitalized epidermis on superior lateral aspect and inferior medial aspect of the lower leg. Ruptured hemorrhagic bullae distal lateral aspect. Without visible purulence or drainage at this time. OTHER: Small round ulcerations on left lower leg. Dry scaly patches over the elbows. Neuro: COMMON NORMALS: patient oriented x3 and moves all extremities S ENSORIUM/ORIENTATION: Yes alert Skin: COMMON NORMALS: no rashes or lesions noted GENERAL SKIN EXAM: no rashes or lesions noted Urinary Catheter Management: Burciaga: Cath Placed During This Visit: yes Reason for Continuing Indwelling Catheter: Accurate Measurement of Urinary Output in Critically Ill Patients Urinary Catheter Date of Insertion: 08/31/24 Urinary Catheter Time of Insertion: 19:00 Data 09/12/24 03:20 09/12/24 03:20 A&P Assessment and plan (1) Ischemic cardiomyopathy: Plan #Acute on chronic congestive systolic heart failure exacerbation #Diabetes mellitus, insulin-dependent #Cellulitis right lower extremity #Acute limb ischemia?ruled out. #Peripheral arterial disease #Dyslipidemia, hypertension #Peripheral neuropathy #GERD #Coronary artery disease status post PCI #History of STEMI, NSTEMI Right lower extremity wound: Irregular shaped, ulcerated area with areas of ruptured bullae/desquamation, small amount of devitalized epidermis on superior lateral aspect. Unclear etiology, although does appear like venous insufficiency ulceration at current time, although without disclamation presentation was somewhat rapid, and venous study was not remarkable. Progression, possible localized scalded skin syndrome. Overall has been showing improvement with deep sting edema, antibiotics. Today with some worsening leukocytosis up to 12.48, restart antibiotics with Zosyn, linezolid. Monitor for risk of neutropenia, agranulocytosis. C. difficile Continue diuretic. Monitor for risk of electrolyte deficiency. Reviewed potassium, magnesium. Repeat chemistry, magnesium. Elevate lower extremity. Pending additional assessment with angiogram for ischemia/perfusion with PAD. Reviewed cardiology note. A1c reviewed, 7.2 Discussed with nursing, case manager specialist Possible pseudomonal pneumonia: Interstitial infiltrates noted on prior x-ray, reviewed sputum culture, growing pansensitive Pseudomonas. He has improved in terms of his respiratory status, is weaned off oxygen, doing well on room air. Heart failure exacerbation: Decompensated systolic and diastolic CHF. Decreasing lower extremity edema. Reviewed intake and output, weight, vitals. Renal function, potassium, exam. Continues with 80 mg twice daily Lasix. Continue potassium replacement. Entresto. Heparin-induced antibody negative. Reviewed platelet level, continues to improve. Reviewed DALTON studies, pending. 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 Further on heparin should be avoided. If needed Eliquis may be added. -HIT panel pending, avoid heparin products Possible psoriasis: With dry scaly patches on bilateral elbows, Auspitz sign. Discussed with him follow-up with dermatology. Attestations 2 Medical Necessity Statement*: Continue admission for assessment and management of right lower extremity wound, congestive heart failure, possible pseudomonal pneumonia, further vascular assessment, post discharge planning and arrangements and High MDM includes amount and/or complexity of data reviewed/ordered [ previous or external records, resulted lab(s)/test(s), ordered lab(s)/test(s) and other healthcare professional discussion] and described risk of complication, morbidity or mortality of management as documented Diagnoses Ischemic cardiomyopathy I25.5
[2024-09-12] MEDS: linezolid premix 600 MG/300 ML PREMIX 300 MG IV (13:19)
[2024-09-12] MEDS: piperacillin-tazobactam 3.375 GM in sodium chloride 0.9% (plus) 50 ML IV ×2 (13:20→21:13)
--- NOTE | 2024-09-12 14:00 | P.PN_ITS ---
<Statement entered by Nir Burnham MD - 09/24/24 03:24> Patient was evaluated and cared for in conjunction with an advanced practice practitioner. I personally examined the patient and reviewed the chart and all pertinent data including imaging, telemetry, and laboratory results. I discussed the patient in detail with the advanced practice practitioner. Please see their note for complete H&P testing result and agreed upon plan of care for the patient. Subjective 2 Subjective: Patient doing well this morning. Swelling has nearly resolved. Platelet counts up to 113. Denies chest pain or shortness of breath. Medications: Reviewed: Yes Vitals/I&O/Wt Last Vital Signs Temp 97.5 F L 09/12/24 12:00 Pulse 120 H 09/12/24 12:00 Resp 24 H 09/12/24 12:00 BP 115/66 09/12/24 12:00 Pulse Ox 95 09/12/24 12:00 O2 Del Method Room Air 09/12/24 12:00 O2 Flow Rate 2 09/06/24 08:53 FiO2 21 09/03/24 08:17 09/11/24 09/12/24 09/12/24 22:59 06:59 14:59 Intake Total 220 / 940 200 / 1140 Output Total 2500 / 5200 1450 / 6650 2750 / 2750 Balance -2280 / -4260 -1250 / -5510 -2750 / -2750 Weight last 48 hrs Weight 228 lb 9.6 oz Weight 266 lb Physical Exam 2 Const: OTHER: GENERAL: Patient is alert, awake and oriented x3. HEART: Regular S1 and S2. No murmur, rub or gallop. LUNGS: Clear to auscultate bilaterally. CENTRAL NERVOUS SYSTEM: Grossly nonfocal. EXTREMITIES: Lower extremities both leg bilateral trace edema with blisters, right leg has cellulitis improved, has dopplerable posterior tibial pulse in the right leg. Right lower extremity warm w/o s/s of ischemia Urinary Catheter Management: Burciaga: Cath Placed During This Visit: yes Reason for Continuing Indwelling Catheter: Accurate Measurement of Urinary Output in Critically Ill Patients Urinary Catheter Date of Insertion: 08/31/24 Urinary Catheter Time of Insertion: 19:00 Data 09/12/24 03:20 09/12/24 03:20 A&P Assessment and plan (1) Ischemic cardiomyopathy: Getting euvolemic, continue current regimen Lasix 80 PO BID continue to monitor potassium (2) PAD (peripheral artery disease): patient does not have acute limb ischemia lower extremity edema cellulitis and blisters contributing to swelling of the both leg and pain. Patient has dopplerable posterior tibial pulse in the right leg. Continue to diurese continue to apply antibiotics use IV antibiotics and wound care. Patient will need an angiogram at some point but at this time the lesion is chronic without evidence of acute ischemia. Patient will need to be optimized medically prior to any lower extremity intervention. Currently platelets are still low but improving at 87. Will avoid aspirin and Plavix at this time due to that. HARIKA antibodies negative so far. May be sepsis induced. Will add Entresto for heart failure. On today's visit dated 09/09 2024 patient lower extremity edema is improving. Platelets are improving months. Creatinine normalized may proceed with peripheral angiogram and attempt to revascularize right leg. On today's visit dated 09/11/2024 patient continues to do fine, foot remains warm moist once platelets improved more than 100 will plan for peripheral angiogram 09/12/2024 Patient continues to improve. Recommend continue current care. Added Metoprolol 12.5 mg daily due to patient has been slightly tachycardic. Creatinine remains stable. Consider angiogram Thursday as patient continues to recover from CHF exacerbation and low platelets. (3) Lower extremity edema: Venous reflux study did not show significant reflux, not sure about it evaluated he has clinically it appeared to me that patient may have underlying venous insufficiency however test was negative. At this point continue to diurese once platelets improve we will proceed with peripheral angiogram hopefully early next week. On today's visit 09/11/2024, lower extremity edema is improving right leg swelling has gone down considerably. Continue to monitor continue IV antibiotics diuresis and topical antibiotic management Plan Continues to improve thrombocytopenia. Recommend continue current care. Added Metoprolol 12.5 mg daily due to patient has been slightly tachycardic. Creatinine remains stable. Consider angiogram Thursday as patient continues to recover from CHF exacerbation and low platelets. Attestations 2 Medical Necessity Statement*: Deferred to primary. Coding Level of Care Code Acute Code for [facility] Diagnoses Ischemic cardiomyopathy I25.5 PAD (peripheral artery disease) I73.9 Lower extremity edema R60.0
[2024-09-12 16:26] LABS: Glucose Point of Care 197 mg/dL (70-110)
[2024-09-12] MEDS: insulin lispro 100 unit/1 mL SUBCUT (17:47)
[2024-09-12 20:48] LABS: Glucose Point of Care 99 mg/dL (70-110)
[2024-09-12 20:58] LABS: UFH High Dose, 100 IU/ML 6 % release; UFH Low Dose, 0.1 IU/ML 10 % release; UFH Low Dose, 0.5 IU/ML 7 % release; UFH SRA Result NEGATIVE (NEGATIVE)
[2024-09-13] VITALS (14 sets, daily range): BP systolic 107–127; BP diastolic 66–76; PULSE 91–94; RESP 18–31; TEMP 36.4–37.2; O2SAT 93–100
[2024-09-13] MEDS: linezolid premix 600 MG/300 ML PREMIX 300 MG IV ×2 (00:14→13:21)
[2024-09-13] MEDS: HYDROmorphone 1 mg/mL INJ 1 mL 0.4 MG IVP ×5 (00:55→19:58)
[2024-09-13 04:42] LABS: Basophils # 0.1 10^3/uL (0.0-0.1); Basophils % 0.5 %; Eosinophils # 0.1 10^3/uL (0.0-0.8); Eosinophils % 0.7 %; Lymphocytes # 1.4 10^3/uL (0.8-4.8); Lymphocytes % 10.7 %; Mean Corpuscular HGB Conc 33.9 g/dL (30-55); Mean Corpuscular Hemoglobin 27.7 pg (27-33); Mean Corpuscular Volume 81.7 fl (82-101); Mean Platelet Volume 10.9 fL (7.4-10.4); Monocytes # 0.7 10^3/uL (0.2-0.9); Monocytes % 5.1 %; Neutrophils # 10.72 10^3/uL (1.8-7.7); Neutrophils % 82.4 %; Nucleated Red Blood Cells % 0 %; Platelet Count 149 10^3/cmm (157-399); Red Blood Count 5.02 10^6/uL (3.85-5.65); Red Cell Distribution Width 18.2 % (12.1-15.1)
[2024-09-13 04:59] LABS: Anion Gap 13.6 (5-19); Blood Urea Nitrogen 20 mg/dL (6-20); Calcium 8.2 mg/dL (8.5-10.5); Carbon Dioxide 31 mmol/L (22-29); Chloride 86 mmol/L (98-107); Creatinine Clr Calc Pharmacy 116.9153; Glomerular Filtration Rate 99.6 mL/min (90-130); Glucose 119 mg/dL (65-115); Osmolality Calculated 268 mOsm/kg (285-295); Potassium 3.6 mmol/L (3.5-5.1); Sodium 127 mmol/L (136-145)
[2024-09-13] MEDS: piperacillin-tazobactam 3.375 GM in sodium chloride 0.9% (plus) 50 ML IV ×3 (04:59→20:49)
[2024-09-13 06:41] LABS: Glucose Point of Care 119 mg/dL (70-110)
[2024-09-13] MEDS: nicotine 14 mg Patch 1 PATCH TRANSDERMA (09:47)
[2024-09-13] MEDS: metoprolol succinate ER (24 HR) 25 mg Tablet 12.5 MG PO (09:48)
[2024-09-13] MEDS: clopidogrel 75 mg Tablet PO (09:48)
[2024-09-13] MEDS: aspirin 81 mg EC Tablet PO (09:48)
[2024-09-13] MEDS: isosorbide mononitrate ER 60 mg Tablet PO (09:48)
[2024-09-13] MEDS: sacubitril/valsartan 24-26 mg Tablet 1 EACH PO ×2 (09:48→17:40)
[2024-09-13] MEDS: duloxetine 20 mg Capsule PO ×2 (09:48→17:40)
[2024-09-13] MEDS: pantoprazole DR 40 mg Tablet PO (09:49)
[2024-09-13] MEDS: tamsulosin 0.4 mg Capsule PO (09:49)
[2024-09-13] MEDS: potassium chloride ER 20 mEq Tablet 40 MEQ PO (09:49)
[2024-09-13] MEDS: FUROsemide 40 mg Tablet 80 MG PO ×2 (09:53→15:39)
--- NOTE | 2024-09-13 10:08 | ECG_ITS ---
[employer] Test Date: 2024-09-13 Pat Name: Yusuf Buck Department: Room: 106 Gender: Male Director Of Gift Planning: : 1965 Requested By: Kenton Bell Order Number: [id number] Sagar MD: Jose M Cuello M.D. Measurements Intervals [place] Rate: 82 P: 241 WY: 241 QRS: -16 QRSD: 96 T: 106 QT: 355 QTc: 416 Interpretive Statements ATRIAL FLUTTER INFERIOR MYOCARDIAL INFARCTION , PROBABLY OLD [40+ ms Q WAVE AND/OR ST/T ABNORMALITY IN II/aVF] ANTEROSEPTAL MYOCARDIAL INFARCTION , OF INDETERMINATE AGE [40+ ms Q WAVE IN V1-V4] MODERATE T-WAVE ABNORMALITY, CONSIDER LATERAL ISCHEMIA [-0.1+ mV T-WAVE IN I/aVL/V5/V6] Compared to ECG 09/12/2024 10:41:06 T-wave abnormality now present Myocardial infarct finding still present Electronically Signed On 09-13-2024 15:14:13 CLINICAL ENGINEERING DIRECTOR by Jose M Cuello M.D. [email or web address]
--- NOTE | 2024-09-13 11:09 | P.PN_ITS ---
<Statement entered by Nir Burnham MD - 09/24/24 03:23> Patient was evaluated and cared for in conjunction with an advanced practice practitioner. I personally examined the patient and reviewed the chart and all pertinent data including imaging, telemetry, and laboratory results. I discussed the patient in detail with the advanced practice practitioner. Please see their note for complete H&P testing result and agreed upon plan of care for the patient. Subjective 2 Subjective: Patient's overall improved. States he is having some right leg pain. Wounds are dry at this time. Patient still has a dopplerable posterior tibial pulse. No signs of acute ischemia at this time. He has function of his toes. He has had over 5 L negative in the last 24 hours. He is still getting Lasix 80 twice daily. Creatinine stable at 0.8. Medications: Reviewed: Yes Vitals/I&O/Wt Last Vital Signs Temp 97.9 F 09/13/24 07:49 Pulse 93 09/13/24 07:49 Resp 18 09/13/24 09:54 BP 124/69 09/13/24 07:49 Pulse Ox 94 09/13/24 09:54 O2 Del Method Room Air 09/13/24 07:49 O2 Flow Rate 2 09/06/24 08:53 FiO2 21 09/03/24 08:17 09/12/24 09/13/24 09/13/24 22:59 06:59 14:59 Intake Total 1070 / 1070 350 / 1420 360 / 360 Output Total 2230 / 4980 2100 / 7080 1200 / 1200 Balance -1160 / -3910 -1750 / -5660 -840 / -840 Weight last 48 hrs Weight 219 lb 14.4 oz Weight 228 lb 9.6 oz Physical Exam 2 Const: OTHER: GENERAL: Patient is alert, awake and oriented x3. HEART: Regular S1 and S2. No murmur, rub or gallop. LUNGS: Clear to auscultate bilaterally. CENTRAL NERVOUS SYSTEM: Grossly nonfocal. EXTREMITIES: Lower extremities both leg bilateral no edema with blisters dry, right leg has cellulitis improved, has dopplerable posterior tibial pulse in the right leg. Right lower extremity warm w/o s/s of ischemia Urinary Catheter Management: Burciaga: Cath Placed During This Visit: yes Reason for Continuing Indwelling Catheter: Accurate Measurement of Urinary Output in Critically Ill Patients Urinary Catheter Date of Insertion: 08/31/24 Urinary Catheter Time of Insertion: 19:00 Data 09/13/24 04:07 09/13/24 04:07 Micro: Microbiology 09/11/24 21:56 Urine Culture - Preliminary Urine,Clean Catch Gram Negative Rods A&P Assessment and plan (1) Ischemic cardiomyopathy: Getting euvolemic, continue current regimen Lasix 80 PO BID continue to monitor potassium (2) PAD (peripheral artery disease): Platelets have improved to 149. The plan is to take patient to the [facility] tomorrow at 7:00 for peripheral angiogram possible angioplasty atherectomy and stenting of the right lower extremity. Patient agrees to proceed. (3) Lower extremity edema: Edema has resolved at this time continue diuretic therapy Plan Patient is in a flutter. At this time we will continue metoprolol 12.5 mg. We will set the patient up for an angiogram tomorrow at 7:00 AM. Attestations 2 Medical Necessity Statement*: Deferred to primary. Coding Level of Care Code Acute Code for [facility] Diagnoses Ischemic cardiomyopathy I25.5 PAD (peripheral artery disease) I73.9 Lower extremity edema R60.0
[2024-09-13 11:29] LABS: Glucose Point of Care 138 mg/dL (70-110)
[2024-09-13 17:15] LABS: Glucose Point of Care 200 mg/dL (70-110)
--- NOTE | 2024-09-13 17:35 | P.PN_ITS ---
Subjective 2 Subjective: Having some pain in the wound site at the right lower leg. Breathing is comfortable. No chest pain. He is agreeable to have surgery further assess his wound and devitalized area of dermis on mid lateral lower right leg. Vitals/I&O/Wt Last Vital Signs Temp 98.1 F 09/13/24 16:00 Pulse 94 09/13/24 16:00 Resp 21 H 09/13/24 16:00 BP 120/76 09/13/24 16:00 Pulse Ox 100 09/13/24 16:00 O2 Del Method Room Air 09/13/24 16:00 O2 Flow Rate 2 09/06/24 08:53 FiO2 21 09/03/24 08:17 09/13/24 09/13/24 09/13/24 06:59 14:59 22:59 Intake Total 350 / 1420 1190 / 1190 Output Total 2100 / 7080 2100 / 2100 700 / 2800 Balance -1750 / -5660 -910 / -910 -700 / -1610 Weight last 48 hrs Weight 99.745 kg Weight 103.691 kg Physical Exam 2 Const: COMMON NORMALS: patient oriented x3 and alert GENERAL APPEARANCE: c ooperative ORIENTATION/CONSCIOUSNESS: Yes awake HENMT: COMMON NORMALS: oropharynx normal Neck/C-Spine: COMMON NORMALS: no JVD Resp: COMMON NORMALS: normal respiratory effort and clear to auscultation bilaterally AUSCULTATION: clear to auscultation bilaterally Cardio: COMMON NORMALS: no JVD, regular rhythm, S1 normal heart sound present, S2 normal heart sound present and No murmurs present (Cardio) RHYTHM: regular rhythm HEART SOUNDS: S1 normal heart sound present and S2 normal heart sound present GI: COMMON NORMALS: Normal to inspection, nondistended, normoactive bowel sounds present, Soft to palpation and non-tender PALPATION: Yes Soft to palpation Extremity: COMMON NORMALS: no joint enlargement and no pedal edema N ARRATIVE EXTREMITY EXAM: Large irregular shallow ulceration/confluent ulceration beds, ruptured bullae, with desquamation, small amount of devitalized epidermis on superior lateral aspect and inferior medial aspect of the lower leg. Ruptured hemorrhagic bullae distal lateral aspect. Without visible purulence or drainage at this time. OTHER: Small round ulcerations on left lower leg. Dry scaly patches over the elbows. Neuro: COMMON NORMALS: patient oriented x3 and moves all extremities S ENSORIUM/ORIENTATION: Yes alert Skin: COMMON NORMALS: no rashes or lesions noted GENERAL SKIN EXAM: no rashes or lesions noted Urinary Catheter Management: Burciaga: Cath Placed During This Visit: yes Reason for Continuing Indwelling Catheter: Accurate Measurement of Urinary Output in Critically Ill Patients Urinary Catheter Date of Insertion: 08/31/24 Urinary Catheter Time of Insertion: 19:00 Data 09/13/24 04:07 09/13/24 04:07 Micro: Microbiology 09/11/24 21:56 Urine Culture - Preliminary Urine,Clean Catch Gram Negative Rods A&P Assessment and plan (1) Ischemic cardiomyopathy: Plan #Acute on chronic congestive systolic heart failure exacerbation #Diabetes mellitus, insulin-dependent #Cellulitis right lower extremity #Acute limb ischemia?ruled out. #Peripheral arterial disease #Dyslipidemia, hypertension #Peripheral neuropathy #GERD #Coronary artery disease status post PCI #History of STEMI, NSTEMI Right lower extremity wound: Discussed with him crescent-shaped devitalized dermis area on the Mid lateral right lower leg, he is agreeable for surgical evaluation. Discussed with surgery. Appreciate consultation. At this time surgical debridement not advisable. Apply Santyl ointment to devitalized dermis area. Follow-up findings of coronary angiography. Consider pyoderma gangrenosum. Irregular shaped, ulcerated area with areas of ruptured bullae/desquamation, small amount of devitalized epidermis on superior lateral aspect. Unclear etiology, although does appear like venous insufficiency ulceration at current time, although without disclamation presentation was somewhat rapid, and venous study was not remarkable. Progression, possible localized scalded skin syndrome. Overall has been showing improvement with deep sting edema, antibiotics. Today with some worsening leukocytosis up to 13, restart antibiotics with Zosyn, linezolid. Monitor for risk of neutropenia, agranulocytosis. C. difficile Reviewed vitals, CBC, BMP, cardiology note. Discussed with cardiology providers. In the meantime continue diuretic. Monitor for risk of electrolyte deficiency. Reviewed potassium, magnesium. Repeat chemistry, magnesium. Elevate lower extremity. Pending additional assessment with angiogram for ischemia/perfusion with PAD. Reviewed cardiology note. A1c reviewed, 7.2 Discussed with nursing, patient case coordinator Possible pseudomonal pneumonia: Interstitial infiltrates noted on prior x-ray, reviewed sputum culture, growing pansensitive Pseudomonas. He has improved in terms of his respiratory status, is weaned off oxygen, doing well on room air. Heart failure exacerbation: Reviewed vitals, intake and output, potassium, as well as renal function, creatinine, BUN, bicarb. So far he is diuresing well. Edema has been subsiding. Continue. Monitor for risk of electrolyte deficiency with IV diuretic, risk of kidney injury. Reassess chemistry. Decompensated systolic and diastolic CHF. Decreasing lower extremity edema. Reviewed intake and output, weight, vitals. Renal function, potassium, exam. Continues with 80 mg twice daily Lasix. Continue potassium replacement. Entresto. Heparin-induced antibody negative. Reviewed platelet level, continues to improve today up to 149. Reviewed DALTON negative., Platelet antibodies negative. Low likelihood of HIT. Possible psoriasis: With dry scaly patches on bilateral elbows, Auspitz sign. Discussed with him follow-up with dermatology. Attestations 2 Medical Necessity Statement*: Continue admission for assessment and management of right lower extremity wound, congestive heart failure, possible pseudomonal pneumonia, further vascular assessment, post discharge planning and arrangements and High MDM includes amount and/or complexity of data reviewed/ordered [ previous or external records, resulted lab(s)/test(s), ordered lab(s)/test(s) and other healthcare professional discussion] and described risk of complication, morbidity or mortality of management as documented Diagnoses Ischemic cardiomyopathy I25.5
[2024-09-13] MEDS: insulin lispro 100 unit/1 mL SUBCUT (17:39)
[2024-09-13] MEDS: acetaminophen 325 mg Tablet 650 MG PO (17:48)
--- NOTE | 2024-09-13 18:10 | PM.CONSULT ---
Providers/Reason For Consult Consulting Physician/Specialty*: General Surgery Reason for Consult*: Right lower extremity wound Attending Physician: Kenton Bell Primary Care Provider: Yusuf Rivera DO History of Present Illness History of Present Illness Yusuf Buck is a 59 year old male with history of heart failure, peripheral artery disease, who is admitted to the hospital noted to have right lower extremity superficial wounds with ulcerations of the skin, that have not progressed since his admission. Patient was admitted the leg was edematous and after edema have resolved the superficial skin appeared to be necrotic with enlarged areas of the right lower extremity. Review of Systems General: Reports: 10 or more systems reviewed and unremarkable except in HPI and below Medications/Allergies Home Medications Medication Instructions Recorded Confirmed Last Taken Type spironolactone 50 mg tablet 50 mg PO DAILY 09/26/19 09/12/24 08/31/24 History tamsulosin 0.4 mg capsule 0.4 mg PO DAILY 09/26/19 09/12/24 08/31/24 History cyclobenzaprine 10 mg tablet 10 mg PO BID 04/09/20 09/12/24 08/31/24 History fluticasone propionate 50 1 spray intranasal DAILY 04/09/20 09/12/24 11/02/22 09:00 History mcg/actuation nasal spray,suspension aspirin 81 mg tablet,delayed 81 mg PO DAILY #90 tabs 10/02/20 09/12/24 08/30/24 Rx release ibuprofen 200 mg capsule 200 mg PO Q6H PRN Pain 12/12/20 09/12/24 11/02/22 22:00 History lidocaine HCl 2 % mucosal solution 1 applic mucous membrane TID 12/12/20 09/12/24 11/02/22 22:00 History isosorbide mononitrate 120 mg 120 mg PO DAILY 90 days #90 tabs 10/17/21 09/12/24 08/31/24 Rx tablet,extended release 24 hr duloxetine 20 mg capsule,delayed 20 mg PO BID 06/23/22 09/12/24 08/31/24 History release hydrocodone 10 mg-acetaminophen 1 tab PO QID PRN Pain 09/10/22 09/12/24 08/31/24 History 325 mg tablet Diabetic shoes with 3 pairs of #1 ea 01/19/23 09/12/24 Unknown Rx custom molded inserts blood-glucose meter,continuous #1 ea 07/01/23 09/12/24 Unknown Rx ([employer]) blood-glucose sensor (Dexcom G7 #9 ea 07/01/23 09/12/24 Unknown Rx Sensor device) furosemide 40 mg tablet 40 mg PO BID #180 tabs 09/25/23 09/12/24 08/31/24 Rx nitroglycerin 0.4 mg sublingual See Rx Instructions .Route 04/22/24 09/12/24 Unknown Rx tablet .COMPLEX #50 tabs budesonide 160 mcg-glycopyr 9 2 inh inhalation BID #10.7 grams 05/20/24 09/12/24 08/30/24 Rx mcg-formot 4.8 mcg/actuation HFA inhaler (Breztri Aerosphere) potassium chloride 10 mEq 10 meq PO DAILY #90 tabs 05/24/24 09/12/24 08/31/24 Rx tablet,extended release(part/cryst) clopidogrel 75 mg tablet 75 mg PO DAILY #90 tabs 06/10/24 09/12/24 08/31/24 Rx sacubitril 97 mg-valsartan 103 mg 1 tab PO BID #180 tabs 06/10/24 09/12/24 08/31/24 Rx tablet (Entresto) evolocumab 140 mg/mL subcutaneous 140 mg SUBCUT .q 2weeks #2 mL 06/15/24 09/12/24 Unknown Rx pen injector ([place] [place]) Novolog FlexPen U-100 Insulin 100 See Rx Instructions .Route 08/02/24 09/12/24 08/30/24 Rx unit/mL (3 mL) subcutaneous .COMPLEX #94.5 mL (insulin aspart U-100) Tresiba FlexTouch U-100 100 See Rx Instructions .Route 08/02/24 09/12/24 08/31/24 Rx unit/mL (3 mL) subcutaneous pen .COMPLEX #90 mL (insulin degludec) carvedilol 25 mg tablet 25 mg PO BID 08/31/24 09/12/24 08/31/24 History dapagliflozin propanediol 10 mg 10 mg PO DAILY 08/31/24 09/12/24 08/31/24 History tablet (Farxiga) ranolazine 500 mg tablet,extended 500 mg PO BID 08/31/24 09/12/24 08/31/24 History release,12 hr Allergies Allergy/AdvReac Type Severity Reaction Status Date / Time No Known Allergies Allergy Verified 09/12/24 08:11 Current Medications Generic Name Dose Route Start Last Admin Trade Name Freq PRN Reason Stop Dose Admin Acetaminophen 650 mg 08/31/24 16:26 09/13/24 17:48 Acetaminophen 325 Mg Tablet PO 650 mg Q6H PRN Administration Mild/Mod Pain Or Temp >/= 101 Albuterol/Ipratropium 3 ml 09/01/24 03:09 09/05/24 13:11 Ipratropium-Albuterol 3 Ml Neb INHALATION 3 ml Q6H PRN Administration SHORTNESS OF BREATH Aspirin 81 mg 09/01/24 09:00 09/13/24 09:48 Aspirin 81 Mg Ec Tablet PO 81 mg DAILY LAURO Administration Clopidogrel Bisulfate 75 mg 09/01/24 09:00 09/13/24 09:48 Clopidogrel 75 Mg Tablet PO 75 mg DAILY LAURO Administration Denture Adhesive 1 each 09/03/24 23:17 09/04/24 21:48 Efferdent Effervescent DENTAL 1 each PRN PRN Administration dental care Duloxetine HCl 20 mg 08/31/24 19:53 09/13/24 17:40 Duloxetine 20 Mg Capsule PO 20 mg BID LAURO Administration Furosemide 80 mg 09/10/24 16:00 09/13/24 15:39 Furosemide 40 Mg Tablet PO 80 mg BID@08,16 LAURO Administration Hydromorphone HCl 0.4 mg 09/13/24 00:01 09/13/24 15:38 Hydromorphone 1 Mg/Ml Inj 1 Ml IVP 0.4 mg Q4H PRN Administration SEVERE PAIN Dextrose 125 mls @ 750 mls/hr 08/31/24 19:53 09/02/24 05:50 D10w IV Infused PRN PRN Infusion Adult Acute Hypoglycemia Nursing Protocol Protocol Piperacillin Sod/Tazobactam 50 mls @ 12.5 mls/hr 09/12/24 13:30 09/13/24 13:20 Sod 3.375 gm/ Sodium Chloride IV 12.5 mls/hr Q8H LAURO Administration Protocol Linezolid 600 mg in 300 mls @ 300 mls/hr 09/12/24 12:30 09/13/24 14:30 Zyvox Premix IV Infused Q12H LAURO Infusion Protocol Insulin Human Lispro 0 unit 08/31/24 19:53 09/13/24 17:39 Insulin Lispro 100 Unit/1 Ml SUBCUT 6 unit WM&BEDTIME LAURO Administration Protocol Isosorbide Mononitrate 60 mg 09/01/24 09:00 09/13/24 09:48 Isosorbide Mononitrate Er 60 Mg Tablet PO 60 mg DAILY LAURO Administration Metoprolol Succinate 12.5 mg 09/12/24 09:15 09/13/24 09:48 Metoprolol Succinate Er (24 Hr) 25 Mg Tablet PO 12.5 mg DAILY LAURO Administration Nicotine 1 patch 09/01/24 00:15 09/13/24 09:47 Nicotine 14 Mg Patch TRANSDERMA 1 patch DAILY LAURO Administration Ondansetron HCl 4 mg 08/31/24 16:26 09/05/24 02:25 Ondansetron 2 Mg/Ml Sdv 2 Ml IVP 4 mg Q8H PRN Administration vomiting, or N/V if npo Pantoprazole Sodium 40 mg 09/01/24 09:00 09/13/24 09:[address] 40 Mg Tablet PO 40 mg DAILY LAURO Administration Potassium Chloride 40 meq 09/08/24 10:00 09/13/24 09:49 Potassium Chloride Er 20 Meq Tablet PO 40 meq DAILY LAURO Administration Ranolazine 500 mg 08/31/24 19:53 08/31/24 22:27 Ranolazine (12hr) 500 Mg Tablet PO 500 mg BID LAURO Administration Sacubitril/Valsartan 1 each 09/08/24 18:00 09/13/24 17:40 Sacubitril/Valsartan 24-26 Mg Tablet PO 1 each BID LAURO Administration Tamsulosin HCl 0.4 mg 09/01/24 09:00 09/13/24 09:49 Tamsulosin 0.4 Mg Capsule PO 0.4 mg DAILY LAURO Administration PFSH Acute PFSH: Medical History (Updated 09/09/24 @ 20:47 by Nir Burnham MD) Lower extremity edema Chronic venous insufficiency Chest pain, unspecified History of intravenous drug use in remission COPD (chronic obstructive pulmonary disease) Congestive heart failure Angina pectoris Hematuria, microscopic Acute pharyngitis, unspecified Hx of myocardial infarction Chronic low back pain Benign essential HTN Arthritis Encounter for long-term (current) use of NSAIDs Atypical chest pain Benign prostatic hyperplasia without lower urinary tract symptoms High blood pressure Hypercholesteremia Mixed hyperlipidemia Diabetes mellitus Long-term current use of opiate analgesic Pain management contract signed DDD (degenerative disc disease), lumbar Tobacco use disorder Smokes to calm his nerves Chronic pain of both knees Gastro-esophageal reflux disease without esophagitis Right testicular pain Calculus of kidney Fracture of arm Abdominal pain of unknown etiology Adhesive tendinitis Male erectile dysfunction, unspecified Abscess, dental Migraine Intervertebral disc disorders with radiculopathy, lumbar region Acute bilateral knee pain Acute left-sided low back pain Other physical education department chair (current) drug therapy Type 2 diabetes mellitus with diabetic neuropathy, unspecified Patient continues to have neuropathy symptoms Aortic valvar stenosis Nicotine dependence, unspecified, uncomplicated Fracture of wrist Surgical History History of PTCA S/P tendon repair H/O hernia repair H/O umbilical hernia repair H/O knee surgery Family History Mother , Metastasis Cancer Hypertension Stomach ulcer Arthritis Father , Gunshot Hypertension Sister Clotting disorder Grandmother CAD (coronary artery disease) Cancer Stroke Grandfather CAD (coronary artery disease) Cancer Family/Other Suicide Other Heart disease Denies family history of Diabetes Dementia Chronic kidney disease (CKD) Anesthesia complication Bleeding disorder Lung disease Social History Smoking and tobacco/nicotine status: never used tobacco/nicotine Alcohol intake: former Year of sobriety/quit date alcohol: 2014 Substance/Drug Use: never Lives independently: Yes Household members: none Marital status: Legally Current occupational status: disabled Do you think of yourself as: Straight/Heterosexual Current gender identity: Male Vitals/I&O/Wt Last Vital Signs Temp 98.1 F 09/13/24 16:00 Pulse 94 09/13/24 16:00 Resp 21 H 09/13/24 16:00 BP 120/76 09/13/24 16:00 Pulse Ox 100 09/13/24 16:00 O2 Del Method Room Air 09/13/24 16:00 O2 Flow Rate 2 09/06/24 08:53 FiO2 21 09/03/24 08:17 09/13/24 09/13/24 09/13/24 06:59 14:59 22:59 Intake Total 350 / 1420 1190 / 1190 Output Total 2100 / 7080 2100 / 2100 700 / 2800 Balance -1750 / -5660 -910 / -910 -700 / -1610 Weight last 48 hrs Weight 219 lb 14.4 oz Weight 228 lb 9.6 oz Physical Exam Extremity: NARRATIVE EXTREMITY EXAM: There is no palpable pulses distally in bilateral lower extremities, on the right lower extremity almost 2/3 of the leg appeared to be affected by a large superficial wound that is causing superficial necrosis of the epidermis without significant deeper ulceration. There are some areas of crusting that are consistent with necrotic skin. Urinary Catheter Management: Burciaga: Cath Placed During This Visit: yes Reason for Continuing Indwelling Catheter: Accurate Measurement of Urinary Output in Critically Ill Patients Urinary Catheter Date of Insertion: 08/31/24 Urinary Catheter Time of Insertion: 19:00 Data 09/13/24 04:07 09/13/24 04:07 Micro: Microbiology 09/11/24 21:56 Urine Culture - Preliminary Urine,Clean Catch Gram Negative Rods A&P Assessment and plan (1) Arterial embolism and thrombosis of lower extremity: (2) Acute on chronic systolic heart failure: (3) Ischemic cardiomyopathy: (4) PAD (peripheral artery disease): (5) Critical limb ischemia of right lower extremity: Plan After complete history physical examination and review of all available clinical data the following is my assessment. I think the patient lower extremity wounds are vascular in nature. My main working diagnosis is possible arterial insufficiency leading to superficial skin necrosis, there is also possibility that due to severe edema of the right lower extremity the microvascular circulation at the level of the skin was significantly decreased causing this skin necrosis that has demarcated now that the edema is gone away. Patient is due for an angiogram of the right lower extremity tomorrow, he does have a CTA that shows occlusion of the SFA with possible distal reconstitution, I think the most likely cause of the symptoms is arterial insufficiency, we will wait for results of the angiogram done tomorrow before providing additional recommendations. At the moment I do not recommend to proceed with debridement as this can cause significant areas of denuded skin that we will have a very hard time healing. There is arterial insufficiency. We can consider also obtaining arterial duplex of the bilateral lower extremities. If the arterial duplex or the angiogram does show any evidence of decreased flow it may be warranted for the patient to be evaluated by a vascular surgeon for possible distal revascularization. Coding Level of Care Code 28346 Diagnoses Arterial embolism and thrombosis of lower extremity I74.3 Acute on chronic systolic heart failure I50.23 Ischemic cardiomyopathy I25.5 PAD (peripheral artery disease) I73.9 Critical limb ischemia of right lower extremity I70.221
[2024-09-13 21:14] LABS: Glucose Point of Care 78 mg/dL (70-110)
[2024-09-13 22:59] LABS: Glucose Point of Care 103 mg/dL (70-110)
[2024-09-14] VITALS (64 sets, daily range): BP systolic 101–147; BP diastolic 54–92; PULSE 83–128; RESP 13–33; TEMP 36.3–37.2; O2SAT 91–100
[2024-09-14] MEDS: HYDROmorphone 1 mg/mL INJ 1 mL 0.4 MG IVP ×4 (00:32→17:44)
[2024-09-14] MEDS: linezolid premix 600 MG/300 ML PREMIX 300 MG IV ×2 (00:33→12:47)
[2024-09-14 04:16] LABS: Basophils # 0.1 10^3/uL (0.0-0.1); Basophils % 0.8 %; Eosinophils # 0.1 10^3/uL (0.0-0.8); Hematocrit 42.8 % (37-53); Lymphocytes # 1.5 10^3/uL (0.8-4.8); Lymphocytes % 14.2 %; Mean Corpuscular HGB Conc 33.2 g/dL (30-55); Mean Corpuscular Volume 84.3 fl (82-101); Mean Platelet Volume 10.2 fL (7.4-10.4); Monocytes # 0.7 10^3/uL (0.2-0.9); Monocytes % 6.9 %; Neutrophils # 8.24 10^3/uL (1.8-7.7); Neutrophils % 76.5 %; Nucleated Red Blood Cells % 0 %; Platelet Count 154 10^3/cmm (157-399); Red Blood Count 5.08 10^6/uL (3.85-5.65); Red Cell Distribution Width 18.2 % (12.1-15.1); White Blood Count 10.78 10^3/uL (3.29-11.43)
[2024-09-14 04:35] LABS: Blood Urea Nitrogen 24 mg/dL (6-20); Calcium 8.1 mg/dL (8.5-10.5); Carbon Dioxide 29 mmol/L (22-29); Chloride 87 mmol/L (98-107); Creatinine Clr Calc Pharmacy 114.6409; Glomerular Filtration Rate 99.6 mL/min (90-130); Glucose 112 mg/dL (65-115); Osmolality Calculated 267 mOsm/kg (285-295); Sodium 126 mmol/L (136-145)
[2024-09-14] MEDS: piperacillin-tazobactam 3.375 GM in sodium chloride 0.9% (plus) 50 ML IV ×3 (05:18→20:49)
[2024-09-14] MEDS: clopidogrel 75 mg Tablet PO (06:17)
[2024-09-14] MEDS: diphenhydrAMINE 50 mg Capsule PO (06:17)
[2024-09-14] MEDS: aspirin 81 mg EC Tablet PO (06:18)
[2024-09-14] MEDS: sodium chloride 0.9% 1,000 ML 50 ML IV (06:19)
[2024-09-14 06:38] LABS: Glucose Point of Care 128 mg/dL (70-110)
--- NOTE | 2024-09-14 07:27 | W.PM.OPSUD ---
Surgery/Procedure H&P Update DATE OF PROCEDURE: September 14, 2024 DATE H&P PERFORMED: 09/01/24 PREOP DIAGNOSIS: Critical limb ischemia, abnormal CTA PATIENT REASSESSED PRIOR TO SEDATION, WITH NO CHANGE NOTED: Yes PHYSICAL EXAM: alert, oriented x 3, clear to auscultation bilaterally, regular rate & rhythm and operative site marked AIRWAY EVAL/ANESTHESIA PLAN: ASA II, Risks, benefits & alternatives of sedation and/or procedure discussed and Patient agrees to continue as planned ADDITIONAL INFORMATION: All risk-benefit and alternative for the procedure has been explained patient understand risk for stroke major bleed urgent or emergent vascular and other surgery, patient understand risk for contrast-induced nephropathy leading to temporary permanent dialysis, patient understand risk for acute limb ischemia due to thromboembolic phenomena perforation occlusion of the distal arteries and and worst-case scenario amputation. He would like to proceed with it.
--- NOTE | 2024-09-14 09:27 | PM.PROC ---
Procedure Note: Pre-procedure diagnosis: Critical limb ischemia, chronically occluded right SFA Post-procedure diagnosis: other Procedure: Percutaneous lithotripsy followed by balloon angioplasty followed by mid SFA stent postdilated with balloon. Excellent angiographic result with good flow was restored in the SFA all the way to the foot with two-vessel runoff. Performing Provider: Nir Burnham Estimated blood loss (mL): 10 IV fluids (mL): 100 Complications: None Coding Level of Care Code Acute Code for Chg Fwd
[2024-09-14] MEDS: clopidogrel 300 mg Tablet PO (09:45)
[2024-09-14] MEDS: sodium chloride 0.9% 1,000 ML 100 ML IV (10:15)
[2024-09-14] MEDS: FUROsemide 40 mg Tablet 80 MG PO ×2 (11:17→15:56)
[2024-09-14] MEDS: nicotine 14 mg Patch 1 PATCH TRANSDERMA (11:17)
[2024-09-14] MEDS: potassium chloride ER 20 mEq Tablet 40 MEQ PO (11:18)
[2024-09-14] MEDS: sacubitril/valsartan 24-26 mg Tablet 1 EACH PO ×2 (11:18→17:44)
[2024-09-14] MEDS: duloxetine 20 mg Capsule PO ×2 (11:18→17:44)
[2024-09-14] MEDS: tamsulosin 0.4 mg Capsule PO (11:18)
[2024-09-14] MEDS: isosorbide mononitrate ER 60 mg Tablet PO (11:19)
[2024-09-14] MEDS: pantoprazole DR 40 mg Tablet PO (11:19)
[2024-09-14] MEDS: metoprolol succinate ER (24 HR) 25 mg Tablet 12.5 MG PO (11:20)
[2024-09-14 11:53] LABS: Glucose Point of Care 120 mg/dL (70-110)
--- NOTE | 2024-09-14 11:56 | PC.NURSE ---
return from cardiac lab director at 1015.report received.pt is drowsy but easily awakened to voice.aflutter on monitor.denies pain at present.left femoral artery sheath intact to pressurized system.drsg is dry and intact.no hematoma noted.left leg is warm to touch and with brisk capillary refill.palpable dp pulse noted.right le dp and pt pulses are dopplerable.vss.pt instructed in activity restrictions s/p femoral artery procedure and instructed to notify staff for any bleeding,pain,sob,numbness...or for any concerns at all.pt verb understanding of instructions
[2024-09-14 12:48] LABS: Partial Thromboplastin Time 34.8 SECONDS (23.9-36.7)
--- NOTE | 2024-09-14 14:04 | PC.NURSE ---
sheath removed at 1334 pressure held for 20mins until hemostasis achieved patient tolerated well v/s stable throughout
--- NOTE | 2024-09-14 14:19 | PM.PN ---
Subjective Subjective: He is doing well after his procedure, denies any chest pain or pressure. No trouble breathing. No pain in his leg. No issues with access site. Vitals/I&O/Wt Last Vital Signs Temp 97.7 F 09/14/24 11:37 Pulse 89 09/14/24 13:54 Resp 20 H 09/14/24 13:54 BP 132/86 09/14/24 13:54 Pulse Ox 92 09/14/24 13:54 O2 Del Method Room Air 09/14/24 11:37 O2 Flow Rate 2 09/06/24 08:53 FiO2 21 09/03/24 08:17 09/13/24 09/14/24 09/14/24 22:59 06:59 14:59 Intake Total 170 / 1360 770 / 2130 50 / 50 Output Total 1700 / 3800 400 / 4200 Balance -1530 / -2440 370 / -2070 50 / 50 Weight last 48 hrs Weight 99.745 kg Weight 99.745 kg Physical Exam Const: COMMON NORMALS: patient oriented x3 and alert GENERAL APPEARANCE: cooperative ORIENTATION/CONSCIOUSNESS: Yes awake HENMT: COMMON NORMALS: oropharynx normal Neck/C-Spine: COMMON NORMALS: no JVD Resp: COMMON NORMALS: normal respiratory effort and clear to auscultation bilaterally AUSCULTATION: clear to auscultation bilaterally Cardio: COMMON NORMALS: no JVD, regular rhythm, S1 normal heart sound present, S2 normal heart sound present and No murmurs present (Cardio) RHYTHM: regular rhythm HEART SOUNDS: S1 normal heart sound present and S2 normal heart sound present GI: COMMON NORMALS: Normal to inspection, nondistended, normoactive bowel sounds present, Soft to palpation and non-tender PALPATION: Yes Soft to palpation Extremity: COMMON NORMALS: no joint enlargement and no pedal edema NARRATIVE EXTREMITY EXAM: Large irregular shallow ulceration/confluent ulceration beds, ruptured bullae, with desquamation, small amount of necrotic epidermis on mid lateral aspect aspect of the lower leg. Ruptured hemorrhagic bullae inferiorly. Without visible purulence or drainage at this time. OTHER: Small round ulcerations on left lower leg. Dry scaly patches over the elbows. Neuro: COMMON NORMALS: patient oriented x3 and moves all extremities SENSORIUM/ORIENTATION: Yes alert Skin: COMMON NORMALS: no rashes or lesions noted GENERAL SKIN EXAM: no rashes or lesions noted Urinary Catheter Management: Burciaga: Cath Placed During This Visit: yes Reason for Continuing Indwelling Catheter: Accurate Measurement of Urinary Output in Critically Ill Patients Urinary Catheter Date of Insertion: 08/31/24 Urinary Catheter Time of Insertion: 19:00 Data 09/14/24 04:01 09/14/24 04:01 Micro: Microbiology 09/11/24 21:56 Urine Culture - Final Urine,Clean Catch Escherichia coli A&P Assessment and plan (1) Ischemic cardiomyopathy: Plan #Acute on chronic congestive systolic heart failure exacerbation #Diabetes mellitus, insulin-dependent #Cellulitis right lower extremity #Acute limb ischemia?ruled out. #Peripheral arterial disease #Dyslipidemia, hypertension #Peripheral neuropathy #GERD #Coronary artery disease status post PCI #History of STEMI, NSTEMI Right lower extremity wound: Status post peripheral angiogram, doing well after procedure, sheath in place. Denies pain or discomfort. No trouble breathing. Reviewed cardiology note, finding of SFA disease angioplasty status post and stenting. Reviewed vitals, CBC, INR, BMP, monitor for risk of kidney injury. Reassess chemistry. Discussed with him risk of reperfusion changes, monitor for worsening inflammation/erythema, drainage, weeping. On assessment he has dopplerable PT and DP pulses in right lower extremity. Reviewed surgical note. As per discussion of surgery discussed also consideration of biopsy to further assess for possibility of pyoderma gangrenosum. For now continue antibiotics. Reviewed WBC, so far has improved. Zosyn, linezolid. Monitor for risk of neutropenia, agranulocytosis Discussed with surgery. Appreciate consultation. At this time surgical debridement not advisable. Apply Santyl ointment to devitalized dermis area. Discussed with nursing, case management coordinator. Irregular shaped, ulcerated area with areas of ruptured bullae/desquamation, small amount of devitalized epidermis on superior lateral aspect. Unclear etiology, although does appear like venous insufficiency ulceration at current time, although without disclamation presentation was somewhat rapid, and venous study was not remarkable. Progression, possible localized scalded skin syndrome. Overall has been showing improvement with deep sting edema, antibiotics. . C. difficile Reviewed vitals, CBC, BMP, cardiology note. Discussed with cardiology providers. In the meantime continue diuretic. Monitor for risk of electrolyte deficiency. Reviewed potassium, magnesium. Repeat chemistry, magnesium. Elevate lower extremity. Pending additional assessment with angiogram for ischemia/perfusion with PAD. Reviewed cardiology note. A1c reviewed, 7.2 Discussed with nursing, case management coordinator Possible pseudomonal pneumonia: Interstitial infiltrates noted on prior x-ray, reviewed sputum culture, growing pansensitive Pseudomonas. He has improved in terms of his respiratory status, is weaned off oxygen, doing well on room air. Heart failure exacerbation: Currently receiving hydration after contrast with angiography. Monitor for worsening fluid overload. Reassess volume status. Reassess kidney function. Reviewed vitals, intake and output, potassium, as well as renal function, creatinine, BUN, bicarb. In negative balance overnight -810 mL. Edema has been subsiding. Continue. Monitor for risk of electrolyte deficiency with IV diuretic, risk of kidney injury. Reassess chemistry. Decompensated systolic and diastolic CHF. Decreasing lower extremity edema. Reviewed intake and output, weight, vitals. Renal function, potassium, exam. Continues with 80 mg twice daily Lasix. Continue potassium replacement. Entresto. Heparin-induced antibody negative. Reviewed platelet level, continues to improve today up to 149. Reviewed DALTON negative., Platelet antibodies negative. Low likelihood of HIT. Possible psoriasis: With dry scaly patches on bilateral elbows, Auspitz sign. Discussed with him follow-up with dermatology. Attestations Medical Necessity Statement*: Continue admission for assessment and management of right lower extremity wound, congestive heart failure, possible pseudomonal pneumonia, further vascular assessment, post discharge planning and arrangements and High MDM includes amount and/or complexity of data reviewed/ordered [ previous or external records, resulted lab(s)/test(s) and other healthcare professional discussion] and described risk of complication, morbidity or mortality of management as documented Diagnoses Ischemic cardiomyopathy I25.5
[2024-09-14] MEDS: collagenase oint 30 gm 1 APPLIC TOPICAL (14:27)
--- NOTE | 2024-09-14 15:15 | P.PN_ITS ---
Subjective 2 Subjective: Patient is doing okay underwent right lower extremity angiogram with balloon to plasty and stent placement with no reconstruction of the SFA and two-vessel runoff to the level of the foot. Still complaining of pain on the right lower extremity in the areas where he has his superficial wounds. Vitals/I&O/Wt Last Vital Signs Temp 97.7 F 09/14/24 11:37 Pulse 89 09/14/24 13:54 Resp 20 H 09/14/24 13:54 BP 132/86 09/14/24 13:54 Pulse Ox 92 09/14/24 13:54 O2 Del Method Room Air 09/14/24 11:37 O2 Flow Rate 2 09/06/24 08:53 FiO2 21 09/03/24 08:17 09/14/24 09/14/24 09/14/24 06:59 14:59 22:59 Intake Total 770 / 2130 50 / 50 Output Total 400 / 4200 Balance 370 / -2070 50 / 50 Weight last 48 hrs Weight 219 lb 14.4 oz Weight 219 lb 14.4 oz Physical Exam 2 Extremity: NARRATIVE EXTREMITY EXAM: At the level of the right lower extremity there is erythema of the skin there is superficial necrosis of the epidermis and some layers of the skin that involves almost the complete anterior aspect of the leg. Urinary Catheter Management: Burciaga: Cath Placed During This Visit: yes Reason for Continuing Indwelling Catheter: Accurate Measurement of Urinary Output in Critically Ill Patients Urinary Catheter Date of Insertion: 08/31/24 Urinary Catheter Time of Insertion: 19:00 Data 09/14/24 04:01 09/14/24 04:01 Micro: Microbiology 09/11/24 21:56 Urine Culture - Final Urine,Clean Catch Escherichia coli A&P Assessment and plan (1) Arterial embolism and thrombosis of lower extremity: (2) PAD (peripheral artery disease): (3) Chronic venous insufficiency: Plan Patient has multiple wounds in the right lower extremity that are compatible with the possibility of arterial insufficiency causing skin necrosis. He has been revascularized 2 days. We will monitor for the next 24 hours to allow wounds to demarcate and then we will plan for debridement on Thursday. Patient shows understanding agrees with the plan. I discussed all recent benefits of the excisional debridement, there is risk of bleeding, infection, need for additional surgical interventions, need for skin grafting, poor wound healing, loss of limb, progression of the wound. Injury to the subcutaneous tissue and underlying structures. He shows understanding agrees to proceed. Attestations 2 Medical Necessity Statement*: Per medical team Coding Level of Care Code Acute Code for Chg Fwd Diagnoses Arterial embolism and thrombosis of lower extremity I74.3 PAD (peripheral artery disease) I73.9 Chronic venous insufficiency I87.2
[2024-09-14] MEDS: HYDROcodone-acetaminophen 5-325 mg Tablet 1 TAB PO (15:56)
[2024-09-14 16:51] LABS: Glucose Point of Care 153 mg/dL (70-110)
[2024-09-14 21:21] LABS: Glucose Point of Care 124 mg/dL (70-110)
[2024-09-15] VITALS (33 sets, daily range): BP systolic 97–146; BP diastolic 63–86; PULSE 70–183; RESP 16–33; TEMP 36.5–37.2; O2SAT 93–100
[2024-09-15] MEDS: HYDROcodone-acetaminophen 5-325 mg Tablet 1 TAB PO ×3 (00:51→21:01)
[2024-09-15] MEDS: linezolid premix 600 MG/300 ML PREMIX 300 MG IV ×3 (00:51→23:51)
[2024-09-15] MEDS: HYDROmorphone 1 mg/mL INJ 1 mL 0.4 MG IVP ×4 (02:46→22:53)
[2024-09-15 05:35] LABS: Basophils # 0.1 10^3/uL (0.0-0.1); Basophils % 0.7 %; Eosinophils # 0.1 10^3/uL (0.0-0.8); Eosinophils % 1.2 %; Hematocrit 42.5 % (37-53); Lymphocytes # 1.4 10^3/uL (0.8-4.8); Lymphocytes % 12.5 %; Mean Corpuscular HGB Conc 32.2 g/dL (30-55); Mean Corpuscular Hemoglobin 27.2 pg (27-33); Mean Corpuscular Volume 84.3 fl (82-101); Mean Platelet Volume 10.9 fL (7.4-10.4); Monocytes # 0.7 10^3/uL (0.2-0.9); Neutrophils # 8.54 10^3/uL (1.8-7.7); Neutrophils % 79.2 %; Nucleated Red Blood Cells % 0 %; Platelet Count 154 10^3/cmm (157-399); Red Blood Count 5.04 10^6/uL (3.85-5.65); Red Cell Distribution Width 18.3 % (12.1-15.1); White Blood Count 10.79 10^3/uL (3.29-11.43)
[2024-09-15] MEDS: piperacillin-tazobactam 3.375 GM in sodium chloride 0.9% (plus) 50 ML IV ×3 (05:35→21:01)
[2024-09-15 05:54] LABS: Anion Gap 15.2 (5-19); Blood Urea Nitrogen 17 mg/dL (6-20); Calcium 8.3 mg/dL (8.5-10.5); Carbon Dioxide 27 mmol/L (22-29); Chloride 89 mmol/L (98-107); Creatinine Clr Calc Pharmacy 112.0004; Glomerular Filtration Rate 99.6 mL/min (90-130); Glucose 104 mg/dL (65-115); Osmolality Calculated 266 mOsm/kg (285-295); Potassium 4.2 mmol/L (3.5-5.1); Sodium 127 mmol/L (136-145)
[2024-09-15 06:36] LABS: Glucose Point of Care 114 mg/dL (70-110)
[2024-09-15] MEDS: duloxetine 20 mg Capsule PO ×2 (08:32→16:54)
[2024-09-15] MEDS: potassium chloride ER 20 mEq Tablet 40 MEQ PO (08:32)
[2024-09-15] MEDS: nicotine 14 mg Patch 1 PATCH TRANSDERMA (08:32)
[2024-09-15] MEDS: isosorbide mononitrate ER 60 mg Tablet PO (08:32)
[2024-09-15] MEDS: sacubitril/valsartan 24-26 mg Tablet 1 EACH PO ×2 (08:32→16:54)
[2024-09-15] MEDS: clopidogrel 75 mg Tablet PO (08:32)
[2024-09-15] MEDS: aspirin 81 mg EC Tablet PO (08:32)
[2024-09-15] MEDS: pantoprazole DR 40 mg Tablet PO (08:32)
[2024-09-15] MEDS: metoprolol succinate ER (24 HR) 25 mg Tablet 12.5 MG PO (08:32)
[2024-09-15] MEDS: tamsulosin 0.4 mg Capsule PO (08:33)
[2024-09-15] MEDS: ipratropium-albuterol 3 mL Neb INHALATION (09:17)
[2024-09-15] MEDS: FUROsemide 40 mg Tablet 80 MG PO (10:42)
[2024-09-15 11:30] LABS: Glucose Point of Care 148 mg/dL (70-110)
--- NOTE | 2024-09-15 11:33 | ECG_ITS ---
[facility] Test Date: 2024-09-15 Pat Name: Yusuf Buck Department: Room: 106 Gender: Male Manager Skilled: : 1965 Requested By: Kenton Bell Order Number: [id number] Sagar MD: Michelle Rodriguez M.D. Measurements Intervals [place] Rate: 91 P: 71 SD: 160 QRS: -25 QRSD: 98 T: 117 QT: 378 QTc: 467 Interpretive Statements possible atrial flutter with a 2-1 block INFERIOR MYOCARDIAL INFARCTION , OF INDETERMINATE AGE [40+ ms Q WAVE AND/OR ST/T ABNORMALITY IN II/aVF] ANTEROLATERAL MYOCARDIAL INFARCTION , OF INDETERMINATE AGE [40+ ms Q WAVE IN I/aVL/V3-V6] Compared to ECG 09/13/2024 10:25:08 Atrial flutter no longer present T-wave abnormality no longer present Possible ischemia no longer present Myocardial infarct finding still present Electronically Signed On 09-15-2024 23:53:36 [employer]ACHINE [employer] by Michelle Rodriguez M.D. [email or web address]
[2024-09-15] MEDS: insulin lispro 100 unit/1 mL SUBCUT (12:19)
--- NOTE | 2024-09-15 15:53 | P.PN_ITS ---
<Statement entered by Nir Burnham MD - 09/24/24 03:22> Patient was evaluated and cared for in conjunction with an advanced practice practitioner. I personally examined the patient and reviewed the chart and all pertinent data including imaging, telemetry, and laboratory results. I discussed the patient in detail with the advanced practice practitioner. Please see their note for complete H&P testing result and agreed upon plan of care for the patient. Subjective 2 Subjective: Patient doing well today. He is s/p percutaneous lithotripsy followed by balloon angioplasty followed by mid SFA stent postdilated with balloon. Excellent angiographic result with good flow was restored in the SFA all the way to the foot with two-vessel runoff. Lower extremity edema has resolved. He denies any lower extremity pain at this time. No signs or symptoms of ischemia present Medications: Reviewed: Yes Vitals/I&O/Wt Last Vital Signs Temp 97.7 F 09/15/24 12:00 Pulse 153 H 09/15/24 12:00 Resp 24 H 09/15/24 12:00 BP 97/76 09/15/24 12:00 Pulse Ox 99 09/15/24 12:00 O2 Del Method Room Air 09/15/24 12:00 O2 Flow Rate 2 09/14/24 16:00 FiO2 21 09/03/24 08:17 09/15/24 09/15/24 09/15/24 06:59 14:59 22:59 Intake Total 2590 / 3770 290 / 290 Output Total 800 / 2700 550 / 550 Balance 1790 / 1070 -260 / -260 Weight last 48 hrs Weight 209 lb 12.8 oz Weight 219 lb 14.4 oz Physical Exam 2 Const: OTHER: GENERAL: Patient is alert, awake and oriented x3. HEART: Regular S1 and S2. No murmur, rub or gallop. LUNGS: Clear to auscultate bilaterally. CENTRAL NERVOUS SYSTEM: Grossly nonfocal. EXTREMITIES: Lower extremities both leg bilateral no edema with blisters dry, right leg has cellulitis improved, has dopplerable posterior tibial pulse in the right leg. Right lower extremity warm w/o s/s of ischemia Urinary Catheter Management: Burciaga: Cath Placed During This Visit: yes Reason for Continuing Indwelling Catheter: Accurate Measurement of Urinary Output in Critically Ill Patients Urinary Catheter Date of Insertion: 08/31/24 Urinary Catheter Time of Insertion: 19:00 Data 09/15/24 05:10 09/15/24 05:10 A&P Assessment and plan (1) Ischemic cardiomyopathy: Currently appears euvolemic, recommend changing Lasix to 40 mg twice daily with potassium 20 mill equivalents twice daily (2) PAD (peripheral artery disease): Patient s/p angioplasty and stenting of the right lower extremity in the SFA. Patient received aspirin and Plavix today. Tomorrow we will start him on Plavix and Eliquis due to a flutter with stroke protection. (3) Lower extremity edema: Edema has resolved at this time continue diuretic therapy at Lasix 40 mg twice daily potassium 20 mill equivalents twice daily Plan Patient continues to improve. Recommend adjusting diuretic dose down to Lasix 40 twice daily. Will monitor creatinine and potassium. Will start Eliquis tomorrow as patient has received aspirin and Plavix. Continue PPI. Attestations 2 Medical Necessity Statement*: Deferred to primary. Coding Level of Care Code Acute Code for [facility] Diagnoses Ischemic cardiomyopathy I25.5 PAD (peripheral artery disease) I73.9 Lower extremity edema R60.0
[2024-09-15] MEDS: potassium chloride ER 20 mEq Tablet PO (16:55)
[2024-09-15] MEDS: FUROsemide 40 mg Tablet PO (16:55)
[2024-09-15] MEDS: sodium chloride 0.9% 1,000 ML 100 ML IV (16:56)
[2024-09-15 18:18] LABS: Glucose Point of Care 205 mg/dL (70-110)
--- NOTE | 2024-09-15 19:34 | PM.PN ---
Subjective Subjective: He is overall doing okay. Leg feels a bit better today. Breathing is on and so-so, still with productive cough. Vitals/I&O/Wt Last Vital Signs Temp 98.4 F 09/15/24 17:00 Pulse 92 09/15/24 18:00 Resp 21 H 09/15/24 18:14 BP 113/63 09/15/24 17:00 Pulse Ox 94 09/15/24 18:14 O2 Del Method Room Air 09/15/24 17:00 O2 Flow Rate 4 09/15/24 16:00 FiO2 21 09/03/24 08:17 09/15/24 09/15/24 09/15/24 06:59 14:59 22:59 Intake Total 2590 / 3770 290 / 290 350 / 640 Output Total 800 / 2700 550 / 550 Balance 1790 / 1070 -260 / -260 350 / 90 Weight last 48 hrs Weight 95.164 kg Weight 99.745 kg Physical Exam Const: COMMON NORMALS: patient oriented x3 and alert GENERAL APPEARANCE: cooperative ORIENTATION/CONSCIOUSNESS: Yes awake HENMT: COMMON NORMALS: oropharynx normal Neck/C-Spine: COMMON NORMALS: no JVD Resp: COMMON NORMALS: normal respiratory effort and clear to auscultation bilaterally AUSCULTATION: clear to auscultation bilaterally Cardio: COMMON NORMALS: no JVD, regular rhythm, S1 normal heart sound present, S2 normal heart sound present and No murmurs present (Cardio) RHYTHM: regular rhythm HEART SOUNDS: S1 normal heart sound present and S2 normal heart sound present GI: COMMON NORMALS: Normal to inspection, nondistended, normoactive bowel sounds present, Soft to palpation and non-tender PALPATION: Yes Soft to palpation Extremity: COMMON NORMALS: no joint enlargement and no pedal edema NARRATIVE EXTREMITY EXAM: Large irregular shallow ulceration/confluent ulceration beds, ruptured bullae, with desquamation, small amount of necrotic epidermis on mid lateral aspect aspect of the lower leg. Ruptured hemorrhagic bullae inferiorly. Without visible purulence or drainage at this time. OTHER: Small round ulcerations on left lower leg. Dry scaly patches over the elbows. Neuro: COMMON NORMALS: patient oriented x3 and moves all extremities SENSORIUM/ORIENTATION: Yes alert Skin: COMMON NORMALS: no rashes or lesions noted GENERAL SKIN EXAM: no rashes or lesions noted Urinary Catheter Management: [place]: Cath Placed During This Visit: yes Reason for Continuing Indwelling Catheter: Accurate Measurement of Urinary Output in Critically Ill Patients Urinary Catheter Date of Insertion: 08/31/24 Urinary Catheter Time of Insertion: 19:00 Data 09/15/24 05:10 09/15/24 05:10 A&P Assessment and plan (1) Ischemic cardiomyopathy: Plan #Acute on chronic congestive systolic heart failure exacerbation #Diabetes mellitus, insulin-dependent #Cellulitis right lower extremity #Acute limb ischemia?ruled out. #Peripheral arterial disease #Dyslipidemia, hypertension #Peripheral neuropathy #GERD #Coronary artery disease status post PCI #History of STEMI, NSTEMI Right lower extremity wound: Discussed with cardiology. Continues on aspirin and Plavix. Reviewed cardiology note. Discussed with surgery, plans for debridement tomorrow. N.p.o. after midnight. Additionally will obtain biopsy for further assessment to look for any suggestion of pyoderma gangrenosum or other condition. Right lower extremity perfused, PT and DP dopplerable pulses. Warm. Continue wound care. Continue to biotic for now pending debridement. Continue to reassess. Reviewed vitals, CBC, INR, BMP, monitor for risk of kidney injury. Reassess chemistry. Discussed with him risk of reperfusion changes, monitor for worsening inflammation/erythema, drainage, weeping. Zosyn, linezolid. Monitor for risk of neutropenia, agranulocytosis Discussed with case packer and sealer, nursing. Elevate lower extremity. Pending additional assessment with angiogram for ischemia/perfusion with PAD. Reviewed cardiology note. Diabetes: A1c reviewed, 7.2. Reviewed POC glucose. Possible pseudomonal pneumonia: Currently still symptomatic. Continues with productive cough. Add flutter valve. Continue Zosyn for now. Interstitial infiltrates noted on prior x-ray, reviewed sputum culture, growing pansensitive Pseudomonas. He has improved in terms of his respiratory status, is weaned off oxygen, doing well on room air. Heart failure exacerbation: Currently receiving hydration after contrast with angiography. Monitor for worsening fluid overload. Reassess volume status. Reassess kidney function. Reviewed vitals, intake and output, potassium, as well as renal function, creatinine, BUN, bicarb. In negative balance overnight -810 mL. Edema has been subsiding. Continue. Monitor for risk of electrolyte deficiency with IV diuretic, risk of kidney injury. Reassess chemistry. Decompensated systolic and diastolic CHF. Decreasing lower extremity edema. Reviewed intake and output, weight, vitals. Renal function, potassium, exam. Continues with 80 mg twice daily Lasix. Continue potassium replacement. Entresto. Atrial fibrillation: Continue metoprolol. Cardiology considering adding Eliquis tomorrow. Monitor for bleeding risk on DAPT plus anticoagulation. Heparin-induced antibody negative. Reviewed platelet level, continues to improve today up to 149. Reviewed DALTON negative., Platelet antibodies negative. Low likelihood of HIT. Possible psoriasis: With dry scaly patches on bilateral elbows, Auspitz sign. Discussed with him follow-up with dermatology. Attestations Medical Necessity Statement*: Continue admission for assessment and management of right lower extremity wound, congestive heart failure, possible pseudomonal pneumonia, further vascular assessment, post discharge planning and arrangements and High MDM includes amount and/or complexity of data reviewed/ordered [ previous or external records, resulted lab(s)/test(s), ordered lab(s)/test(s) and other healthcare professional discussion] and described risk of complication, morbidity or mortality of management as documented Diagnoses Ischemic cardiomyopathy I25.5
[2024-09-15 21:48] LABS: Glucose Point of Care 128 mg/dL (70-110)
[2024-09-16] VITALS (34 sets, daily range): BP systolic 99–137; BP diastolic 61–100; PULSE 73–115; RESP 12–28; TEMP 36.3–37.2; O2SAT 90–98
[2024-09-16] MEDS: HYDROmorphone 1 mg/mL INJ 1 mL 0.4 MG IVP ×3 (05:08→21:02)
[2024-09-16] MEDS: piperacillin-tazobactam 3.375 GM in sodium chloride 0.9% (plus) 50 ML IV ×3 (05:09→20:50)
[2024-09-16 05:39] LABS: Basophils # 0.1 10^3/uL (0.0-0.1); Basophils % 0.9 %; Eosinophils # 0.1 10^3/uL (0.0-0.8); Hematocrit 38.6 % (37-53); Lymphocytes # 1.5 10^3/uL (0.8-4.8); Lymphocytes % 17.1 %; Mean Corpuscular HGB Conc 32.6 g/dL (30-55); Mean Corpuscular Hemoglobin 27.9 pg (27-33); Mean Corpuscular Volume 85.4 fl (82-101); Mean Platelet Volume 10.7 fL (7.4-10.4); Monocytes # 0.6 10^3/uL (0.2-0.9); Monocytes % 6.7 %; Neutrophils % 73.8 %; Nucleated Red Blood Cells % 0 %; Platelet Count 104 10^3/cmm (157-399); Red Blood Count 4.52 10^6/uL (3.85-5.65); Red Cell Distribution Width 18.5 % (12.1-15.1); White Blood Count 8.67 10^3/uL (3.29-11.43)
[2024-09-16 06:01] LABS: Blood Urea Nitrogen 19 mg/dL (6-20); Calcium 8.1 mg/dL (8.5-10.5); Carbon Dioxide 26 mmol/L (22-29); Chloride 90 mmol/L (98-107); Creatinine Clr Calc Pharmacy 129.9424; Glomerular Filtration Rate 116.2 mL/min (90-130); Glucose 108 mg/dL (65-115); Osmolality Calculated 269 mOsm/kg (285-295); Sodium 128 mmol/L (136-145)
[2024-09-16 06:03] LABS: Anion Gap 16.8 (5-19); Potassium 4.8 mmol/L (3.5-5.1)
[2024-09-16 06:24] LABS: Glucose Point of Care 122 mg/dL (70-110)
--- NOTE | 2024-09-16 08:13 | P.HPUD_ITS ---
Surgery/Procedure H&P Update DATE OF PROCEDURE: September 16, 2024 DATE H&P PERFORMED: 09/13/24 H&P UPDATE INFORMATION: I have reviewed H&P completed within last 30 days, I have examined patient prior to procedure, No changes to prior documentation and H&P is in [facility] EMR on date indicated PREOP DIAGNOSIS: Right lower extremity ulcerations PLANNED PROCEDURE: Operation Date: 09/14/24 07:00 Proposed Procedures p Peripheral Diagnostic(Not Applicable) - Nir Burnham MD Operation Date: 09/16/24 14:40 Proposed Procedures p Debridement right lower extremity wound(Right) - Bienvenido Mazariegos MD
[2024-09-16] MEDS: metoprolol succinate ER (24 HR) 25 mg Tablet 12.5 MG PO (08:36)
[2024-09-16] MEDS: sacubitril/valsartan 24-26 mg Tablet 1 EACH PO ×2 (08:36→17:29)
[2024-09-16] MEDS: HYDROcodone-acetaminophen 5-325 mg Tablet 1 TAB PO (08:36)
[2024-09-16] MEDS: clopidogrel 75 mg Tablet PO (08:37)
[2024-09-16] MEDS: nicotine 14 mg Patch 1 PATCH TRANSDERMA (08:37)
[2024-09-16] MEDS: isosorbide mononitrate ER 60 mg Tablet PO (08:37)
[2024-09-16] MEDS: potassium chloride ER 20 mEq Tablet PO ×2 (08:37→17:31)
[2024-09-16] MEDS: duloxetine 20 mg Capsule PO ×2 (08:37→17:29)
[2024-09-16] MEDS: tamsulosin 0.4 mg Capsule PO (08:37)
[2024-09-16] MEDS: pantoprazole DR 40 mg Tablet PO (08:37)
[2024-09-16] MEDS: FUROsemide 40 mg Tablet PO ×2 (09:58→17:30)
[2024-09-16 11:52] LABS: Glucose Point of Care 125 mg/dL (70-110)
--- NOTE | 2024-09-16 11:56 | P.PN_ITS ---
<Statement entered by Jose M Cuello M.D - 09/16/24 19:07> I reviewed the chart and all pertinent data including imaging, telemetry, and laboratory results. I discussed the patient in detail with the advanced practice practitioner. Please see their note for complete progress note, results and agreed upon plan of care for the patient Subjective 2 Subjective: Patient's leg is somewhat sore but no severe pain. Most likely has reperfusion pain. No significant swelling to bilateral lower extremities. Edema has resolved. He is going today for wound debridement to the right lower extremity. He received Plavix this morning. Eliquis on hold for procedure. Will resume if okay with general surgery. Vitals/I&O/Wt Last Vital Signs Temp 98.5 F 09/16/24 11:44 Pulse 90 09/16/24 11:44 Resp 18 09/16/24 11:44 BP 137/100 09/16/24 11:44 Pulse Ox 96 09/16/24 11:44 O2 Del Method Room Air 09/16/24 11:44 O2 Flow Rate 4 09/15/24 16:00 FiO2 21 09/03/24 08:17 09/15/24 09/16/24 09/16/24 22:59 06:59 14:59 Intake Total 1070 / 1360 910 / 2270 50 / 50 Output Total 200 / 750 1100 / 1850 1200 / 1200 Balance 870 / 610 -190 / 420 -1150 / -1150 Weight last 48 hrs Weight 216 lb 4.8 oz Weight 209 lb 12.8 oz Physical Exam 2 Narrative: GENERAL: Patient is alert, awake and oriented x3. HEART: Regular S1 and S2. No murmur, rub or gallop. LUNGS: Clear to auscultate bilaterally. EXTREMITIES: Lower extremities both leg bilateral no edema with blisters dry, right leg has multiple dry wounds, has 2+ dopplerable posterior tibial pulse in the right leg. Right lower extremity warm w/o s/s of ischemia, 2 second capillary refill Urinary Catheter Management: [place]: Cath Placed During This Visit: yes Reason for Continuing Indwelling Catheter: Accurate Measurement of Urinary Output in Critically Ill Patients Urinary Catheter Date of Insertion: 08/31/24 Urinary Catheter Time of Insertion: 19:00 Data 09/16/24 05:11 09/16/24 05:11 A&P Assessment and plan (1) Ischemic cardiomyopathy: Currently appears euvolemic, recommend changing Lasix to 40 mg twice daily with potassium 20 mill equivalents twice daily. We will see how patient responds. (2) PAD (peripheral artery disease): Patient s/p angioplasty and stenting of the right lower extremity in the SFA. Patient received Plavix today. Today the plan is for him to have Plavix and Eliquis due to a flutter with stroke protection if general surgery oks after debridement. (3) Lower extremity edema: Edema has resolved at this time. Will transition patient to oral Lasix 40 mg twice daily potassium 20 mill equivalents twice daily Plan Patient continues to improve. Continue diuresis with oral lasix. Will monitor creatinine and potassium. Will start Eliquis today with Plavix if ok with general surgery. Continue PPI. Continue GDMT with Entresto, Farxiga, carvedilol, and diuretic therapy as needed. Attestations 2 Medical Necessity Statement*: Deferred to primary care team. Coding Level of Care Code Acute Code for [facility] Diagnoses Ischemic cardiomyopathy I25.5 PAD (peripheral artery disease) I73.9 Lower extremity edema R60.0
[2024-09-16] MEDS: sodium chloride 0.9% 1,000 ML 30 ML IV (12:05)
[2024-09-16] MEDS: linezolid premix 600 MG/300 ML PREMIX 300 MG IV (12:41)
--- NOTE | 2024-09-16 12:51 | P.ANESASSM_ITS ---
Pre-Anesthetic Assessment Height/Weight: Height 5 ft 7 in Weight 216 lb 4.8 oz Temp Pulse Resp BP Pulse Ox O2 Del Method O2 Flow Rate 98.5 F 90 18 137/100 96 Room Air 4 09/16/24 11:44 09/16/24 11:44 09/16/24 11:44 09/16/24 11:44 09/16/24 11:44 09/16/24 11:44 09/15/24 16:00 FiO2 21 09/03/24 08:17 Preop Diagnosis: Right lower extremity ulcerations Operation Date: 09/14/24 07:00 Proposed Procedures p Peripheral Diagnostic(Not Applicable) - Nir Burnham MD Operation Date: 09/16/24 12:55 Proposed Procedures p Debridement right lower extremity wound(Right) - Bienvenido Mazariegos MD Was Beta Tony taken within 24 hours: N/A Was Clonidine taken within 24 hours: N/A Last intake: Intake Last Liquid Date 09/15/24 Last Liquid Time 23:00 Last Solid Date 09/15/24 Last Solid Time 23:00 Social Tobacco and No alcohol Exam alert and oriented x 3 Airway Submandibular: within normal limits Cervical ROM: within normal limits Mallampati: Class III Dentition: false Anesthetic Plan ASA status: 4 Anesthesia: General Other: No prior issues with anesthesia NPO since yesterday Patient initially admitted on 08/31/2024 for lower extremity swelling and SOB S/p angioplasty and stenting of the right lower extremity in the SFA Prior ischemic cardiomyopathy on chronic Eliquis Type 2 diabetes, uncontrolled. On chronic insulin Labs reviewed today and acceptable for procedure. Chronic hyponatremia noted. BS 125 EKG yesterday showing atrial flutter with 2?1 block. Prior inferior ID noted Patient has a LifeVest currently on, this will need turned off for the procedure I explained to patient that he is high risk for the procedure given his significant cardiac history. Patient is aware and understands that he needs the procedure done. Plan for general anesthesia Medications/Allergies Home Medications Medication Instructions Recorded Confirmed Last Taken Type spironolactone 50 mg tablet 50 mg PO DAILY 09/26/19 09/12/24 08/31/24 History tamsulosin 0.4 mg capsule 0.4 mg PO DAILY 09/26/19 09/12/24 08/31/24 History cyclobenzaprine 10 mg tablet 10 mg PO BID 04/09/20 09/12/24 08/31/24 History fluticasone propionate 50 1 spray intranasal DAILY 04/09/20 09/12/24 11/02/22 09:00 History mcg/actuation nasal spray,suspension aspirin 81 mg tablet,delayed 81 mg PO DAILY #90 tabs 10/02/20 09/12/24 08/30/24 Rx release ibuprofen 200 mg capsule 200 mg PO Q6H PRN Pain 12/12/20 09/12/24 11/02/22 22:00 History lidocaine HCl 2 % mucosal solution 1 applic mucous membrane TID 12/12/20 09/12/24 11/02/22 22:00 History isosorbide mononitrate 120 mg 120 mg PO DAILY 90 days #90 tabs 10/17/21 09/12/24 08/31/24 Rx tablet,extended release 24 hr duloxetine 20 mg capsule,delayed 20 mg PO BID 06/23/22 09/12/24 08/31/24 History release hydrocodone 10 mg-acetaminophen 1 tab PO QID PRN Pain 09/10/22 09/12/24 08/31/24 History 325 mg tablet Diabetic shoes with 3 pairs of #1 ea 01/19/23 09/12/24 Unknown Rx custom molded inserts blood-glucose meter,continuous #1 ea 07/01/23 09/12/24 Unknown Rx (Dex[employer] G7 [employer]) blood-glucose sensor (Dexcom G7 #9 ea 07/01/23 09/12/24 Unknown Rx Sensor device) furosemide 40 mg tablet 40 mg PO BID #180 tabs 09/25/23 09/12/24 08/31/24 Rx nitroglycerin 0.4 mg sublingual See Rx Instructions .Route 04/22/24 09/12/24 Unknown Rx tablet .COMPLEX #50 tabs budesonide 160 mcg-glycopyr 9 2 inh inhalation BID #10.7 grams 05/20/24 09/12/24 08/30/24 Rx mcg-formot 4.8 mcg/actuation HFA inhaler (Breztri Aerosphere) potassium chloride 10 mEq 10 meq PO DAILY #90 tabs 05/24/24 09/12/24 08/31/24 Rx tablet,extended release(part/cryst) clopidogrel 75 mg tablet 75 mg PO DAILY #90 tabs 06/10/24 09/12/24 08/31/24 Rx sacubitril 97 mg-valsartan 103 mg 1 tab PO BID #180 tabs 06/10/24 09/12/24 08/31/24 Rx tablet (Entresto) evolocumab 140 mg/mL subcutaneous 140 mg SUBCUT .q 2weeks #2 mL 06/15/24 09/12/24 Unknown Rx pen injector (Amna Cisneros) Novolog FlexPen U-100 Insulin 100 See Rx Instructions .Route 08/02/24 09/12/24 08/30/24 Rx unit/mL (3 mL) subcutaneous .COMPLEX #94.5 mL (insulin aspart U-100) Tresiba FlexTouch U-100 100 See Rx Instructions .Route 08/02/24 09/12/24 08/31/24 Rx unit/mL (3 mL) subcutaneous pen .COMPLEX #90 mL (insulin degludec) carvedilol 25 mg tablet 25 mg PO BID 08/31/24 09/12/24 08/31/24 History dapagliflozin propanediol 10 mg 10 mg PO DAILY 08/31/24 09/12/24 08/31/24 History tablet (Farxiga) ranolazine 500 mg tablet,extended 500 mg PO BID 08/31/24 09/12/24 08/31/24 History release,12 hr Allergies Allergy/AdvReac Type Severity Reaction Status Date / Time No Known Allergies Allergy Verified 09/12/24 08:11 Current Medications Generic Name Dose Route Start Last Admin Trade Name Freq PRN Reason Stop Dose Admin Acetaminophen 650 mg 08/31/24 16:26 09/13/24 17:48 Acetaminophen 325 Mg Tablet PO 650 mg Q6H PRN Administration Mild/Mod Pain Or Temp >/= 101 Hydrocodone Bitart/Acetaminophen 1 tab 09/14/24 09:24 09/16/24 08:36 Hydrocodone-Acetaminophen 5-325 Mg Tablet PO 1 tab Q4H PRN Administration PAIN Albuterol/Ipratropium 3 ml 09/01/24 03:09 09/15/24 09:17 Ipratropium-Albuterol 3 Ml Neb INHALATION 3 ml Q6H PRN Administration SHORTNESS OF BREATH Clopidogrel Bisulfate 75 mg 09/01/24 09:00 12/20/24 08:37 Clopidogrel 75 Mg Tablet PO 75 mg DAILY LA[facility]O Administration Collagenase 1 applic 09/14/24 09:00 09/16/24 08:43 Collagenase Oint 30 Gm TOPICAL Not Given DAILY [facility] Denture Adhesive 1 each 09/03/24 23:17 09/04/24 21:48 Efferdent Effervescent DENTAL 1 each PRN PRN Administration dental care Duloxetine HCl 20 mg 08/31/24 19:53 09/16/24 08:37 Duloxetine 20 Mg Capsule PO 20 mg BID LA[facility]O Administration Furosemide 40 mg 09/15/24 16:00 09/16/24 09:58 Furosemide 40 Mg Tablet PO 40 mg BID@ LA[facility]O Administration Hydromorphone HCl 0.4 mg 09/13/24 00:01 09/16/24 09:59 Hydromorphone 1 Mg/Ml Inj 1 Ml IVP 0.4 mg Q4H PRN Administration SEVERE PAIN Dextrose 125 mls @ 750 mls/hr 08/31/24 19:53 09/02/24 05:50 D10w IV Infused PRN PRN Infusion Adult Acute Hypoglycemia Nursing Protocol Protocol Piperacillin Sod/Tazobactam 50 mls @ 12.5 mls/hr 09/12/24 13:30 09/16/24 09:37 Sod 3.375 gm/ Sodium Chloride IV Infused Q8H [facility] Infusion Protocol Linezolid 600 mg in 300 mls @ 300 mls/hr 09/12/24 12:30 09/16/24 12:41 Zyvox Premix IV 300 mls/hr Q12H [facility] Administration Protocol Sodium Chloride 1,000 mls @ 30 mls/hr 09/16/24 11:45 09/16/24 12:05 Sodium Chloride 0.9% IV 09/17/24 11:44 30 mls/hr .Q24H [facility] Administration Insulin Human Lispro 0 unit 08/31/24 19:53 09/16/24 08:43 Insulin Lispro 100 Unit/1 Ml SUBCUT Not Given WM&BEDTIME [facility] Protocol Isosorbide Mononitrate 60 mg 09/01/24 09:00 09/16/24 08:37 Isosorbide Mononitrate Er 60 Mg Tablet PO 60 mg DAILY LA[facility]O Administration Metoprolol Succinate 12.5 mg 09/12/24 09:15 09/16/24 08:36 Metoprolol Succinate Er (24 Hr) 25 Mg Tablet PO 12.5 mg DAILY [facility] Administration Nicotine 1 patch 09/01/24 00:15 09/16/24 08:37 Nicotine 14 Mg Patch TRANSDERMA 1 patch DAILY [facility] Administration Ondansetron HCl 4 mg 08/31/24 16:26 09/05/24 02:25 Ondansetron 2 Mg/Ml Sdv 2 Ml IVP 4 mg Q8H PRN Administration vomiting, or N/V if npo Pantoprazole Sodium 40 mg 09/01/24 09:00 09/16/24 08:[address] 40 Mg Tablet PO 40 mg DAILY [facility] Administration Potassium Chloride 20 meq 09/15/24 18:00 09/16/24 08:37 Potassium Chloride Er 20 Meq Tablet PO 20 meq BID [facility] Administration Ranolazine 500 mg 08/31/24 19:53 08/31/24 22:27 Ranolazine (12hr) 500 Mg Tablet PO 500 mg BID [facility] Administration Sacubitril/Valsartan 1 each 09/08/24 18:00 09/16/24 08:36 Sacubitril/Valsartan 24-26 Mg Tablet PO 1 each BID [facility] Administration Tamsulosin HCl 0.4 mg 09/01/24 09:00 09/16/24 08:37 Tamsulosin 0.4 Mg Capsule PO 0.4 mg DAILY [facility] Administration Additional Medication Information Current Medications Acetaminophen (Acetaminophen 325 Mg Tablet) 650 mg PO Q6H PRN PRN Reason: Mild/Mod Pain Or Temp >/= 101 Last Admin: 09/02/24 14:50 Dose: 650 mg Hydrocodone Bitart/Acetaminophen (Hydrocodone-Acetaminophen 10-325 Mg Tablet) 1 tab PO QID PRN PRN Reason: Pain Last Admin: 09/04/24 02:06 Dose: 1 tab Albuterol/Ipratropium (Ipratropium-Albuterol 3 Ml Neb) 3 ml INHALATION Q6H PRN PRN Reason: SHORTNESS OF BREATH Last Admin: 09/03/24 08:10 Dose: 3 ml Aspirin (Aspirin 81 Mg Ec Tablet) 81 mg PO DAILY [facility] Last Admin: 09/03/24 09:00 Dose: 81 mg Clopidogrel Bisulfate (Clopidogrel 75 Mg Tablet) 75 mg PO DAILY [facility] Last Admin: 09/03/24 09:00 Dose: 75 mg Denture Adhesive (Efferdent Effervescent) 1 each DENTAL PRN PRN PRN Reason: dental care Last Admin: 09/03/24 23:26 Dose: 1 each Duloxetine HCl (Duloxetine 20 Mg Capsule) 20 mg PO BID [facility] Last Admin: 09/03/24 18:21 Dose: 20 mg Furosemide (Furosemide 10 Mg/Ml Sdv 10ml) 60 mg IVP Q8H [facility] Last Admin: 09/04/24 04:29 Dose: 60 mg Glucagon (Glucagon 1 Mg/Ml Kit 1 Ml) 1 mg IM ONCE PRN; Protocol PRN Reason: Adult Acute Hypoglycemia Nursing Prot. Heparin Sodium (Porcine) (Heparin 5,000 Unit/Ml Inj 1 Ml) 5,000 unit SUBCUT Q12H [facility] Last Admin: 09/02/24 05:21 Dose: 5,000 unit Heparin Sodium (Porcine) (Heparin 5,000 Unit/Ml Inj 1 Ml) 0 unit IVP PRN PRN; Protocol PRN Reason: Heparin Weight Based Protocol -Subsequent Bolus Last Admin: 09/03/24 10:27 Dose: 200 unit Piperacillin Sod/Tazobactam (Sod 3.375 gm/ Sodium Chloride) 50 mls @ 12.5 mls/hr IV Q8H [facility] Last Infusion: 09/04/24 06:13 Dose: Infused Dextrose (D5w) 500 mls @ 0 mls/hr IV ONCE PRN; Protocol PRN Reason: Adult Acute Hypoglycemia Prot Dextrose (D10w) 125 mls @ 750 mls/hr IV PRN PRN; Protocol PRN Reason: Adult Acute Hypoglycemia Nursing Protocol Last Infusion: 09/02/24 05:50 Dose: Infused Dextrose (D10w) 250 mls @ 1,000 mls/hr IV PRN PRN; Protocol PRN Reason: Adult Acute Hypoglycemia Nursing Protocol Norepinephrine Bitartrate (Levophed) 4 mg in 250 mls @ 0 mls/hr IV .Q0M [facility]; Protocol Last Titration: 09/02/24 13:00 Dose: 0 mcg/min, 0 mls/hr Heparin Sodium/Sodium Chloride (Heparin Drip) 25,000 unit in 500 mls @ 0 mls/hr IV CONT [facility]; Protocol Last Titration: 09/04/24 00:25 Dose: 10.85 unit/kg/hr, 28 mls/hr Dobutamine HCl/Dextrose (Dobutamine Drip) 500 mg in 250 mls @ 0 mls/hr IV .Q0M [facility]; Protocol Last Admin: 09/03/24 09:05 Dose: 2.5 mcg/kg/min, 9.68 mls/hr Vancomycin HCl (Vancocin) 1,750 mg in 350 mls @ 175 mls/hr IV Q18H [facility] Last Infusion: 09/03/24 20:28 Dose: Infused Insulin Human Lispro (Insulin Lispro 100 Unit/1 Ml) 0 unit SUBCUT WM&BEDTIME [facility]; Protocol Last Admin: 09/03/24 21:26 Dose: 4 unit Isosorbide Mononitrate (Isosorbide Mononitrate Er 60 Mg Tablet) 60 mg PO DAILY [facility] Morphine Sulfate (Morphine 4 Mg/Ml Sdv 1 Ml) 2 mg IVP Q4H PRN PRN Reason: SEVERE PAIN Last Admin: 09/03/24 14:39 Dose: 2 mg Nicotine (Nicotine 14 Mg Patch) 1 patch TRANSDERMA DAILY [facility] Last Admin: 09/03/24 09:01 Dose: 1 patch Ondansetron HCl (Ondansetron 2 Mg/Ml Sdv 2 Ml) 4 mg IVP Q8H PRN PRN Reason: vomiting, or N/V if npo Pantoprazole Sodium (Pantoprazole Dr 40 Mg Tablet) 40 mg PO DAILY [facility] Last Admin: 09/03/24 09:00 Dose: 40 mg Potassium Chloride (Potassium Chloride Er 20 Meq Tablet) 20 meq PO Q24H [facility] Last Admin: 09/03/24 06:25 Dose: 20 meq Ranolazine (Ranolazine (12hr) 500 Mg Tablet) 500 mg PO BID [facility] Last Admin: 08/31/24 22:27 Dose: 500 mg Spironolactone (Spironolactone 25 Mg Tablet) 25 mg PO DAILY [facility] Last Admin: 09/02/24 08:48 Dose: 25 mg Tamsulosin HCl (Tamsulosin 0.4 Mg Capsule) 0.4 mg PO DAILY [facility] Last Admin: 09/03/24 09:00 Dose: 0.4 mg PFSH Anesthesia Medical History (Updated 09/09/24 @ 20:47 by Nir Burnham MD) Lower extremity edema Chronic venous insufficiency Chest pain, unspecified History of intravenous drug use in remission COPD (chronic obstructive pulmonary disease) Congestive heart failure Angina pectoris Hematuria, microscopic Acute pharyngitis, unspecified Hx of myocardial infarction Chronic low back pain Benign essential HTN Arthritis Encounter for long-term (current) use of NSAIDs Atypical chest pain Benign prostatic hyperplasia without lower urinary tract symptoms High blood pressure Hypercholesteremia Mixed hyperlipidemia Diabetes mellitus Long-term current use of opiate analgesic Pain management contract signed DDD (degenerative disc disease), lumbar Tobacco use disorder Smokes to calm his nerves Chronic pain of both knees Gastro-esophageal reflux disease without esophagitis Right testicular pain Calculus of kidney Fracture of arm Abdominal pain of unknown etiology Adhesive tendinitis Male erectile dysfunction, unspecified Abscess, dental Migraine Intervertebral disc disorders with radiculopathy, lumbar region Acute bilateral knee pain Acute left-sided low back pain Other retirement (current) drug therapy Type 2 diabetes mellitus with diabetic neuropathy, unspecified Patient continues to have neuropathy symptoms Aortic valvar stenosis Nicotine dependence, unspecified, uncomplicated Fracture of wrist Surgical History History of PTCA S/P tendon repair H/O hernia repair H/O umbilical hernia repair H/O knee surgery Family History Mother , Metastasis Cancer Hypertension Stomach ulcer Arthritis Father , Gunshot Hypertension Sister Clotting disorder Grandmother CAD (coronary artery disease) Cancer Stroke Grandfather CAD (coronary artery disease) Cancer Family/Other Suicide Other Heart disease Denies family history of Diabetes Dementia Chronic kidney disease (CKD) Anesthesia complication Bleeding disorder Lung disease Social History Smoking and tobacco/nicotine status: current every day tobacco/nicotine user cigarettes Packs smoked per day: 1.5 Years cigarettes smoked: 35 Alcohol intake: former Year of sobriety/quit date alcohol: 2014 Substance/Drug Use: never Lives independently: Yes Household members: none Marital status: Legally Current occupational status: disabled Do you think of yourself as: Straight/Heterosexual Current gender identity: Male Data Anesthesia 09/16/24 05:11 09/16/24 05:11 Short CBC 09/15/24 09/16/24 Range/Units 05:10 05:11 WBC 10.79 8.67 (3.29-11.43) 10^3/uL Hgb 13.70 12.60 (11.27-16.99) g/dL Hct 42.5 38.6 (37-53) % MCV 84.3 85.4 (82-101) fl Plt Count 154 L 104 L D (157-399) 10^3/cmm Neut % (Auto) 79.2 73.8 % Neut # (Auto) 8.54 H 6.40 (1.8-7.7) 10^3/uL BMP 09/15/24 09/16/24 05:10 05:11 Sodium 127 L 128 L Potassium 4.2 4.8 Chloride 89 L 90 L Carbon Dioxide 27 26 BUN 17 19 Creatinine 0.8 0.7 Glucose 104 108 Calcium 8.3 L 8.1 L Cardiac Studies: 2 Echocardiogram 09/01/24 Echocardiogram Limited Views 06/05/23 Echocardiogram Ultrasound 10/01/20 Sestamibi Stress Test (Cardiology) 09/16
--- NOTE | 2024-09-16 15:07 | PM.MISC ---
Miscellaneous Note Purpose of Documentation: Update patient care Note: We went to the OR today for debridement of the right lower extremity wounds, I remove all the necrotic tissue, but almost 2/3 of the skin of the anterior aspect of the left appeared to be hypoperfused, very minimal bleeding, while there was no yasmeen necrosis of this area I do not think the tissues cannot be viable in the long-term. Will monitor on a day-to-day basis before deciding to proceed with an aggressive debridement as removal of the majority of the skin of the right leg is gone across very large wound that we will need negative pressure therapy probably for weeks or months to granulate and I am not sure if his vascularity is noted to support that kind of wound healing. I have discussed this with the patient. We will reevaluate in the morning for the need of any additional debridement.
--- NOTE | 2024-09-16 15:08 | PM.OP ---
Operative Report Date of procedure: September 16, 2024 Pre-op diagnosis: Right lower extremity limb ischemia Post-op diagnosis: Same Post-op findings: Almost 2/3 of the skin of the right leg appears hypoperfused with several patches of necrosis covering a total area of about 20 x 15 cm. The areas of necrosis were completely excised, the hypoperfusing skin did not appear necrotic but there was some very minimal bleeding on contact, this area was preserved in the hopes of improvement now that the patient has been revascularized. Procedure done: Sharp debridement of right lower extremity skin necrosis, to the level of the subcutaneous tissue. Specimens removed/disposition: Right leg wound biopsies Surgeon: Bienvenido Mazariegos MD Auto Repair Technician: AISLINN OR STaff Estimated blood loss: 40 thank you very much yeah Complications: None apparent Brief History: This is a 59-year-old male with history of peripheral artery disease who was admitted to the hospital with right lower extremity limb ischemia. He underwent angiogram and revascularization 48 hours ago, since hospital admission to the time of revascularization several skin changes were noted in the right leg consistent with the possibility of superficial ischemia. After evaluation of these wounds we decided to proceed to the OR for debridement. Procedure: Patient was brought into the OR, placed in a supine position, general anesthesia was given. The right lower extremity was prepped and draped in usual sterile fashion and timeout was conducted. The right lower extremity cath almost 2/3 of the anterior aspect of the leg affected with areas of ischemic the skin mixed with areas of necrosis. I first started by doing a planned debridement of the superficial epidermis using a lap pad, once all the superficial epidermis was removed several areas of necrosis were identified, this necrotic skin was sharply debrided to the level of the subcutaneous tissue, the total area of debridement was about 20 x 15 cm. There were significant areas of necrosis in the proximal leg almost at the level of the knee as well as in the distal leg all the way down to the level of the ankle. The edges of the wound in the areas of debridement appear healthy and bleeding. The rest of the leg in the area that appeared hypoperfused intestines with needle prick minimal bleeding was noted, this is concerning for the possibility of this skin demarcating in the next couple of days to yasmeen ischemia and necrosis. I decided to take several punch biopsies of this area of hypoperfused the skin and subcutaneous tissue to send to pathology. I then scraped the superficial layer of the skin with a knife to promote bleeding to assist with wound healing. The wound was completely irrigated at the end of the procedure and hemostasis was achieved. Xeroform was applied to the wound and this was wrapped with gauze. At the end of the procedure all counts were correct, the patient tolerated well the procedure was transferred to the PACU in stable condition.
[2024-09-16] MEDS: fentaNYL 50 mcg/mL INJ 2mL IVP (15:20)
--- NOTE | 2024-09-16 15:45 | ANE.PACU2 ---
Inpatient post-anesthesia follow up: Airway intact: Yes Vital signs: Temperature 96.9 F Pulse Rate 83 Respiratory Rate 17 Blood Pressure [Le ft Arm] 125/79 Blood Pressure 96/51 Pulse Oximetry 96 Oxygen Delivery Me thod Room Air Oxygen Flow Rate 4 Fraction of Inspir ed Oxygen 21 Hydration adequate: Yes Nausea and vomiting: No Pain level: 1 Mental status: Baseline
[2024-09-16 18:00] LABS: Glucose Point of Care 158 mg/dL (70-110)
--- NOTE | 2024-09-16 18:42 | P.PN_ITS ---
Subjective 2 Subjective: He is doing okay this morning denies pain or discomfort, denies trouble breathing. He is awaiting surgical intervention for debridement and biopsy of his right lower leg. Vitals/I&O/Wt Last Vital Signs Temp 97.5 F L 09/16/24 18:00 Pulse 91 09/16/24 18:00 Resp 18 09/16/24 18:00 BP 105/61 09/16/24 18:00 Pulse Ox 96 09/16/24 18:00 O2 Del Method Room Air 09/16/24 18:00 O2 Flow Rate 4 09/15/24 16:00 FiO2 21 09/03/24 08:17 09/16/24 09/16/24 09/16/24 06:59 14:59 22:59 Intake Total 910 / 2270 50 / 50 615 / 665 Output Total 1100 / 1850 1240 / 1240 Balance -190 / 420 -1190 / -1190 615 / -575 Weight last 48 hrs Weight 98.112 kg Weight 95.164 kg Physical Exam 2 Const: COMMON NORMALS: patient oriented x3 and alert GENERAL APPEARANCE: c ooperative ORIENTATION/CONSCIOUSNESS: Yes awake HENMT: COMMON NORMALS: oropharynx normal Neck/C-Spine: COMMON NORMALS: no JVD Resp: COMMON NORMALS: normal respiratory effort and clear to auscultation bilaterally AUSCULTATION: clear to auscultation bilaterally Cardio: COMMON NORMALS: no JVD, regular rhythm, S1 normal heart sound present, S2 normal heart sound present and No murmurs present (Cardio) RHYTHM: regular rhythm HEART SOUNDS: S1 normal heart sound present and S2 normal heart sound present GI: COMMON NORMALS: Normal to inspection, nondistended, normoactive bowel sounds present, Soft to palpation and non-tender PALPATION: Yes Soft to palpation Extremity: COMMON NORMALS: no joint enlargement and no pedal edema N ARRATIVE EXTREMITY EXAM: Large irregular shallow ulceration/confluent ulceration beds, ruptured bullae, with desquamation, small amount of necrotic epidermis on mid lateral aspect aspect of the lower leg. Bloody discharge, slough covering some parts of the ulcer. OTHER: Small round ulcerations on left lower leg. Dry scaly patches over the elbows. Neuro: COMMON NORMALS: patient oriented x3 and moves all extremities S ENSORIUM/ORIENTATION: Yes alert Skin: COMMON NORMALS: no rashes or lesions noted GENERAL SKIN EXAM: no rashes or lesions noted Urinary Catheter Management: Burciaga: Cath Placed During This Visit: yes Reason for Continuing Indwelling Catheter: Accurate Measurement of Urinary Output in Critically Ill Patients Urinary Catheter Date of Insertion: 08/31/24 Urinary Catheter Time of Insertion: 19:00 Data 09/16/24 05:11 09/16/24 05:11 A&P Assessment and plan (1) Ischemic cardiomyopathy: Plan #Acute on chronic congestive systolic heart failure exacerbation #Diabetes mellitus, insulin-dependent #Cellulitis right lower extremity #Acute limb ischemia?ruled out. #Peripheral arterial disease #Dyslipidemia, hypertension #Peripheral neuropathy #GERD #Coronary artery disease status post PCI #History of STEMI, NSTEMI Right lower extremity wound: Discussed with surgery, undergoing debridement and biopsy today. There is an additional area of skin that appears to be in jeopardy, overall wound appears to be likely arising on ischemic basis. The jeopardized skin area if does not recover may further need to Undergo staged debridement. For this reason Per discussion with the surgeon will not yet start anticoagulation with Eliquis. Subsequently may also benefit from wound VAC he as well as due to size of the ulceration and follow-up for skin grafting. Discussed with cardiology. Continues on aspirin and Plavix. Monitor for risk of bleeding with DAPT. Reviewed cardiology note. Discussed with nursing, embedded case manager. Right lower extremity perfused, PT and DP dopplerable pulses. Warm. Continue wound care. Continue to biotic for now pending debridement. Continue to reassess. Reviewed vitals, CBC, INR, BMP, monitor for risk of kidney injury. Reassess chemistry. Discussed with him risk of reperfusion changes, monitor for worsening inflammation/erythema, drainage, weeping. Zosyn, linezolid. Monitor for risk of neutropenia, agranulocytosis Discussed with embedded case manager, nursing. Elevate lower extremity. Pending additional assessment with angiogram for ischemia/perfusion with PAD. Reviewed cardiology note. Diabetes: A1c reviewed, 7.2. Reviewed POC glucose. Possible pseudomonal pneumonia: Currently still symptomatic. Continues with productive cough. Add flutter valve. Continue Zosyn for now. Interstitial infiltrates noted on prior x-ray, reviewed sputum culture, growing pansensitive Pseudomonas. He has improved in terms of his respiratory status, is weaned off oxygen, doing well on room air. Heart failure exacerbation: Currently receiving hydration after contrast with angiography. Monitor for worsening fluid overload. Reassess volume status. Reassess kidney function. Reviewed vitals, intake and output, potassium, as well as renal function, creatinine, BUN, bicarb. In negative balance overnight -810 mL. Edema has been subsiding. Continue. Monitor for risk of electrolyte deficiency with IV diuretic, risk of kidney injury. Reassess chemistry. Decompensated systolic and diastolic CHF. Decreasing lower extremity edema. Reviewed intake and output, weight, vitals. Renal function, potassium, exam. Continues with 80 mg twice daily Lasix. Continue potassium replacement. Entresto. Atrial fibrillation: Continue metoprolol. Cardiology considering adding Eliquis tomorrow. Monitor for bleeding risk on DAPT plus anticoagulation. Thrombocytopenia: Again moderate thrombocytopenia, platelets 104. Hold off starting anticoagulation for now in anticipation of possible additional need for debridement. Recheck platelet level. Heparin-induced antibody negative. Reviewed platelet level, continues to improve today up to 149. Reviewed DALTON negative., Platelet antibodies negative. Low likelihood of HIT. UTI: Reviewed urine culture, noted E. coli growing. Continue Zosyn. Possible psoriasis: With dry scaly patches on bilateral elbows, Auspitz sign. Discussed with him follow-up with dermatology. Attestations 2 Medical Necessity Statement*: Continue admission for assessment and management of large right lower extremity wound, in the setting of peripheral arterial disease, status post stenting congestive heart failure. and High MDM includes amount and/or complexity of data reviewed/ordered [ previous or external records, resulted lab(s)/test(s), ordered lab(s)/test(s) and other healthcare professional discussion] and described risk of complication, morbidity or mortality of management as documented Diagnoses Ischemic cardiomyopathy I25.5
[2024-09-16 20:18] LABS: Glucose Point of Care 210 mg/dL (70-110)
[2024-09-16] MEDS: insulin lispro 100 unit/1 mL SUBCUT (20:50)
[2024-09-17] VITALS (57 sets, daily range): BP systolic 80–123; BP diastolic 42–77; PULSE 66–176; RESP 9–31; TEMP 36.1–36.8; O2SAT 91–99
[2024-09-17] MEDS: linezolid premix 600 MG/300 ML PREMIX 300 MG IV ×2 (01:27→13:37)
[2024-09-17] MEDS: HYDROmorphone 1 mg/mL INJ 1 mL 0.4 MG IVP ×4 (01:54→22:09)
[2024-09-17 03:53] LABS: Basophils % 0.4 %; Eosinophils # 0.1 10^3/uL (0.0-0.8); Eosinophils % 0.7 %; Hematocrit 35.9 % (37-53); Lymphocytes % 11.5 %; Mean Corpuscular Hemoglobin 27.8 pg (27-33); Mean Corpuscular Volume 86.7 fl (82-101); Mean Platelet Volume 11.3 fL (7.4-10.4); Monocytes # 0.6 10^3/uL (0.2-0.9); Monocytes % 6.7 %; Neutrophils # 6.69 10^3/uL (1.8-7.7); Nucleated Red Blood Cells % 0 %; Platelet Count 141 10^3/cmm (157-399); Red Blood Count 4.14 10^6/uL (3.85-5.65); White Blood Count 8.36 10^3/uL (3.29-11.43)
[2024-09-17 04:16] LABS: Anion Gap 11.9 (5-19); Blood Urea Nitrogen 17 mg/dL (6-20); Carbon Dioxide 27 mmol/L (22-29); Chloride 92 mmol/L (98-107); Creatinine Clr Calc Pharmacy 129.9424; Glomerular Filtration Rate 116.2 mL/min (90-130); Glucose 147 mg/dL (65-115); Osmolality Calculated 266 mOsm/kg (285-295); Potassium 4.9 mmol/L (3.5-5.1); Sodium 126 mmol/L (136-145)
[2024-09-17] MEDS: piperacillin-tazobactam 3.375 GM in sodium chloride 0.9% (plus) 50 ML IV ×3 (06:40→22:09)
[2024-09-17 08:08] LABS: Glucose Point of Care 136 mg/dL (70-110)
[2024-09-17] MEDS: pantoprazole DR 40 mg Tablet PO (08:22)
[2024-09-17] MEDS: nicotine 14 mg Patch 1 PATCH TRANSDERMA (08:22)
[2024-09-17] MEDS: potassium chloride ER 20 mEq Tablet PO ×2 (08:22→18:14)
[2024-09-17] MEDS: duloxetine 20 mg Capsule PO ×2 (08:22→18:14)
[2024-09-17] MEDS: sacubitril/valsartan 24-26 mg Tablet 1 EACH PO (08:22)
[2024-09-17] MEDS: clopidogrel 75 mg Tablet PO (08:22)
[2024-09-17] MEDS: HYDROcodone-acetaminophen 5-325 mg Tablet 1 TAB PO ×3 (08:23→20:21)
[2024-09-17] MEDS: tamsulosin 0.4 mg Capsule PO (08:23)
[2024-09-17] MEDS: metoprolol succinate ER (24 HR) 25 mg Tablet PO (08:23)
[2024-09-17] MEDS: FUROsemide 40 mg Tablet PO (08:29)
--- NOTE | 2024-09-17 09:41 | PM.PN ---
Subjective Subjective: Patient is doing well. no chest pain. Had leg debridement yesterday and has soaked dressings that needed to be changed. Vitals/I&O/Wt Last Vital Signs Temp 97.8 F 09/17/24 07:37 Pulse 88 09/17/24 08:33 Resp 18 09/17/24 08:33 BP 113/75 09/17/24 07:37 Pulse Ox 98 09/17/24 08:33 O2 Del Method Room Air 09/17/24 08:33 O2 Flow Rate 4 09/15/24 16:00 FiO2 21 09/03/24 08:17 09/16/24 09/17/24 09/17/24 22:59 06:59 14:59 Intake Total 615 / 665 350 / 1015 480 / 480 Output Total 700 / 1940 600 / 2540 Balance -85 / -1275 -250 / -1525 480 / 480 Weight last 48 hrs Weight 216 lb 4.8 oz Weight 216 lb 4.8 oz Physical Exam Narrative: GENERAL: Patient is alert, awake and oriented x3. HEART: Regular S1 and S2. No murmur, rub or gallop. LUNGS: Clear to auscultate bilaterally. CENTRAL NERVOUS SYSTEM: Grossly nonfocal. EXTREMITIES: Right leg has dressing applied. Urinary Catheter Management: Burciaga: Cath Placed During This Visit: yes Reason for Continuing Indwelling Catheter: Other Urinary Catheter Date of Insertion: 08/31/24 Urinary Catheter Time of Insertion: 19:00 Data 09/18/24 04:42 09/18/24 04:42 A&P Assessment and plan (1) Ischemic cardiomyopathy: (2) PAD (peripheral artery disease): (3) Lower extremity edema: Plan Will continue holding Eliquis for now. Patient has blood soaked dressing on the right lower leg at site of debridement Continue Plavix. Will continue furosemide. Close I&O's. Monitor renal function. Uptitrate metoprolol Thank you for involving us with care of this patient. We will continue to follow. Please call with questions. Attestations Medical Necessity Statement*: Care expected to cross 2 midnights. Coding Level of Care Code Acute Code for [facility] Fwd Diagnoses Ischemic cardiomyopathy I25.5 PAD (peripheral artery disease) I73.9 Lower extremity edema R60.0
[2024-09-17] MEDS: HYDROmorphone 1 mg/mL INJ 1 mL 0.5 MG IVP (09:59)
[2024-09-17] MEDS: isosorbide mononitrate ER 60 mg Tablet 30 MG PO (09:59)
--- NOTE | 2024-09-17 10:01 | PM.PN ---
Subjective Subjective: Stable over the last 24 hours, no other significant issues. Vitals/I&O/Wt Last Vital Signs Temp 97.8 F 09/17/24 07:37 Pulse 88 09/17/24 08:33 Resp 18 09/17/24 08:33 BP 113/75 09/17/24 07:37 Pulse Ox 98 09/17/24 08:33 O2 Del Method Room Air 09/17/24 08:33 O2 Flow Rate 4 09/15/24 16:00 FiO2 21 09/03/24 08:17 09/16/24 09/17/24 09/17/24 22:59 06:59 14:59 Intake Total 615 / 665 350 / 1015 480 / 480 Output Total 700 / 1940 600 / 2540 Balance -85 / -1275 -250 / -1525 480 / 480 Weight last 48 hrs Weight 216 lb 4.8 oz Weight 216 lb 4.8 oz Physical Exam Extremity: NARRATIVE EXTREMITY EXAM: Right lower extremity dressing was taken down, there is good healthy bleeding tissue on the edges of the debridement, a large patch of skin on the anterolateral aspect of the right leg as still appears ischemic. There is no yasmeen necrosis but prick sensation is diminished and patient has almost no sensation to light touch in that area which indicates probably profound ischemia. Urinary Catheter Management: Burciaga: Cath Placed During This Visit: yes Reason for Continuing Indwelling Catheter: Other Urinary Catheter Date of Insertion: 08/31/24 Urinary Catheter Time of Insertion: 19:00 Data 09/17/24 03:22 09/17/24 03:22 A&P Assessment and plan (1) Arterial embolism and thrombosis of lower extremity: (2) PAD (peripheral artery disease): (3) Critical limb ischemia of right lower extremity: Plan Is a 59-year-old male who has history of pericardial disease and was admitted to the hospital with right lower extremity limb ischemia he underwent revascularization via angiogram earlier this week. Yesterday we proceeded to the OR for debridement, several patches of necrotic skin were removed with healthy bleeding tissue underneath, there was a very large patch of ischemic skin that we decided to preserve with the hopes of allowing patient to recover vascularity since he is a extremely large area of the leg. Today the areas of debridement appear healthy there is bleeding tissue around, the large island of ischemic skin appears unchanged, there is very minimal sensation to break with a needle patient does not have sensation to light touch in that area. This tells me that the area has been suffering from significant ischemia. While is not frankly necrotic I am not sure if this skin is viable. I have explained to the patient that the options at this moment are the following, continue evaluation on a day by day basis and wait for the skin to demarcate and necrotic tissue to show itself. With this approach we will only remove the skin once he is completely necrotic trying to preserve as much healthy skin as possible. The second option is to proceed with major debridement right lower extremity they will leave the anterior part of the left the new that in about two thirds of its length, after this patient can have a wound VAC and will require outpatient follow-up for wound VAC changes 3 times a week but it will probably take months until enough granulation tissue is formed to support and the skin graft and taking consideration patient peripheral artery disease and very poor circulation there is a possibility that this completely fails and if that happens patient will probably require an amputation which unfortunately will need to be [id number] due to the amount of soft tissue that will be removed from the leg below the knee. He shows understanding at the moment he wants to as much as possible to preserve tissue and to prevent amputation so he has decided not to pursue major debridement we will reevaluate tomorrow morning and decide if we need to proceed to the OR to remove some more tissue otherwise we will continue with local wound care. Attestations Medical Necessity Statement*: Patient will require at least 48 hours of hospital stay for wound care and possible additional debridement Coding Level of Care Code Acute Code for [facility] Diagnoses Arterial embolism and thrombosis of lower extremity I74.3 PAD (peripheral artery disease) I73.9 Critical limb ischemia of right lower extremity I70.221
[2024-09-17 11:34] LABS: Glucose Point of Care 121 mg/dL (70-110)
[2024-09-17 16:37] LABS: Glucose Point of Care 129 mg/dL (70-110)
--- NOTE | 2024-09-17 17:30 | PC.NURSE ---
Hypotension 1730 pmNotified hospitalist of bp around 80/40 Map-54,recheck 15 mins [id number]. Pt right leg dressings are saturated and soiled with serosanguinous blood. dressing changed and reinforced with xerofoam, abdl pads, 4/4 kerlix and néstor wrap as ordered by dr sifuentes. Received order to give 500 cc NS bolus now. 1800pm-BP after IV bolus-103/65 to 110/57. Dilaudid PRN given due to severe pain post dressing change.
[2024-09-17] MEDS: sodium chloride 0.9% 500 ML IV (18:08)
[2024-09-17 20:21] LABS: Glucose Point of Care 159 mg/dL (70-110)
--- NOTE | 2024-09-17 21:56 | PM.PN ---
Subjective Subjective: Denies additional new developments today, but his leg has been sore. He is breathing has been better, sputum production subsiding. He tells me he has had discussion with surgery with regards to additional debridement. Vitals/I&O/Wt Last Vital Signs Temp 98.0 F 09/17/24 19:48 Pulse 91 09/17/24 19:48 Resp 13 09/17/24 19:48 BP 106/54 09/17/24 19:48 Pulse Ox 98 09/17/24 19:48 O2 Del Method Room Air 09/17/24 19:48 O2 Flow Rate 4 09/15/24 16:00 FiO2 21 09/03/24 08:17 09/17/24 09/17/24 09/17/24 06:59 14:59 22:59 Intake Total 350 / 1015 1070 / 1070 2626.5 / 3696.5 Output Total 600 / 2540 1200 / 1200 600 / 1800 Balance -250 / -1525 -130 / -130 2026.5 / 1896.5 Weight last 48 hrs Weight 98.112 kg Weight 98.112 kg Physical Exam Const: COMMON NORMALS: patient oriented x3 and alert GENERAL APPEARANCE: cooperative ORIENTATION/CONSCIOUSNESS: Yes awake HENMT: COMMON NORMALS: oropharynx normal Neck/C-Spine: COMMON NORMALS: no JVD Resp: COMMON NORMALS: normal respiratory effort and clear to auscultation bilaterally AUSCULTATION: clear to auscultation bilaterally Cardio: COMMON NORMALS: no JVD, regular rhythm, S1 normal heart sound present, S2 normal heart sound present and No murmurs present (Cardio) RHYTHM: regular rhythm HEART SOUNDS: S1 normal heart sound present and S2 normal heart sound present GI: COMMON NORMALS: Normal to inspection, nondistended, normoactive bowel sounds present, Soft to palpation and non-tender PALPATION: Yes Soft to palpation Extremity: COMMON NORMALS: no joint enlargement and no pedal edema NARRATIVE EXTREMITY EXAM: Some blood strikethrough on dressing. Large irregular shallow ulceration/confluent ulceration beds, ruptured bullae, with desquamation, small amount of necrotic epidermis on mid lateral aspect aspect of the lower leg. Bloody discharge, slough covering some parts of the ulcer. OTHER: Small round ulcerations on left lower leg. Dry scaly patches over the elbows. Neuro: COMMON NORMALS: patient oriented x3 and moves all extremities SENSORIUM/ORIENTATION: Yes alert Skin: COMMON NORMALS: no rashes or lesions noted GENERAL SKIN EXAM: no rashes or lesions noted Urinary Catheter Management: Burciaga: Cath Placed During This Visit: yes Reason for Continuing Indwelling Catheter: Acute Urinary Retention or Obstruction Urinary Catheter Date of Insertion: 08/31/24 Urinary Catheter Time of Insertion: 19:00 Data 09/17/24 03:22 09/17/24 03:22 A&P Assessment and plan (1) Ischemic cardiomyopathy: Plan #Acute on chronic congestive systolic heart failure exacerbation #Diabetes mellitus, insulin-dependent #Cellulitis right lower extremity #Acute limb ischemia?ruled out. #Peripheral arterial disease #Dyslipidemia, hypertension #Peripheral neuropathy #GERD #Coronary artery disease status post PCI #History of STEMI, NSTEMI Right lower extremity wound: Leg has been sore, requiring pain medication. Reviewed vitals, CBC, afebrile, leukocytosis resolved. Some bloody strikethrough on the dressing. Discussed with surgery, patch of skin which was questionable, appears unfortunately may need additional debridement, tentative plan for tomorrow as per discussion with patient. Surgery with further plans for wound VAC dressing, subsequently some point possible skin graft. Discussed with surgery, undergoing debridement and biopsy today. There is an additional area of skin that appears to be in jeopardy, overall wound appears to be likely arising on ischemic basis. The jeopardized skin area if does not recover may further need to Undergo staged debridement. For this reason Per discussion with the surgeon will not yet start anticoagulation with Eliquis. Subsequently may also benefit from wound VAC he as well as due to size of the ulceration and follow-up for skin grafting. Continues on aspirin and Plavix. Monitor for risk of bleeding with DAPT. Reviewed cardiology note. Right lower extremity perfused, PT and DP dopplerable pulses. Warm. Continue wound care. Continue to biotic for now pending debridement. Continue to reassess. Reviewed vitals, CBC, INR, BMP, monitor for risk of kidney injury. Reassess chemistry. Discussed with him risk of reperfusion changes, monitor for worsening inflammation/erythema, drainage, weeping. Zosyn, linezolid. Monitor for risk of neutropenia, agranulocytosis Discussed with social work case manager, nursing. Elevate lower extremity. Pending additional assessment with angiogram for ischemia/perfusion with PAD. Reviewed cardiology note. Hyponatremia: Noted some worsening hyponatremia, sodium down to 126. Resume regular diet once resumed. Diabetes: A1c reviewed, 7.2. Reviewed POC glucose. Possible pseudomonal pneumonia: Symptomatically improving, subsiding sputum production. Improved breathing. Doing well on room air. Currently still symptomatic. Continues with productive cough. Add flutter valve. Continue Zosyn for now. Interstitial infiltrates noted on prior x-ray, reviewed sputum culture, growing pansensitive Pseudomonas. He has improved in terms of his respiratory status, is weaned off oxygen, doing well on room air. Heart failure exacerbation: Today with some hypotension, held Lasix. Given small bolus of 500 cc saline with improvement in blood pressure. Reassess. Monitor volume status. Had to hold Entresto, Imdur for now. Metoprolol continued for now. Monitor for risk of hypotension. Currently receiving hydration after contrast with angiography. Monitor for worsening fluid overload. Reassess volume status. Reassess kidney function. Reviewed vitals, intake and output, potassium, as well as renal function, creatinine, BUN, bicarb. In negative balance overnight -810 mL. Edema has been subsiding. Continue. Monitor for risk of electrolyte deficiency with IV diuretic, risk of kidney injury. Reassess chemistry. Decompensated systolic and diastolic CHF. Decreasing lower extremity edema. Reviewed intake and output, weight, vitals. Renal function, potassium, exam. Continues with 80 mg twice daily Lasix. Continue potassium replacement. Entresto. Atrial fibrillation: Continue metoprolol. Cardiology considering adding Eliquis tomorrow. Monitor for bleeding risk on DAPT plus anticoagulation. Thrombocytopenia: Again moderate thrombocytopenia, platelets 104. Hold off starting anticoagulation for now in anticipation of possible additional need for debridement. Recheck platelet level. Heparin-induced antibody negative. Reviewed platelet level, continues to improve today up to 149. Reviewed DALTON negative., Platelet antibodies negative. Low likelihood of HIT. UTI: Reviewed urine culture, noted E. coli growing. Continue Zosyn. Possible psoriasis: With dry scaly patches on bilateral elbows, Auspitz sign. Discussed with him follow-up with dermatology. Attestations Medical Necessity Statement*: Continue admission for assessment and management of large right lower extremity wound, in the setting of peripheral arterial disease, status post stenting congestive heart failure. and High MDM includes amount and/or complexity of data reviewed/ordered [ resulted lab(s)/test(s), ordered lab(s)/test(s) and other healthcare professional discussion] and described risk of complication, morbidity or mortality of management as documented Diagnoses Ischemic cardiomyopathy I25.5
[2024-09-18] VITALS (21 sets, daily range): BP systolic 99–117; BP diastolic 55–77; PULSE 83–119; RESP 11–24; TEMP 36.3–36.8; O2SAT 92–99
[2024-09-18] MEDS: linezolid premix 600 MG/300 ML PREMIX 300 MG IV ×2 (00:31→12:32)
[2024-09-18] MEDS: HYDROcodone-acetaminophen 5-325 mg Tablet 1 TAB PO ×5 (00:31→21:36)
[2024-09-18] MEDS: HYDROmorphone 1 mg/mL INJ 1 mL 0.4 MG IVP ×3 (02:12→14:57)
[2024-09-18] MEDS: piperacillin-tazobactam 3.375 GM in sodium chloride 0.9% (plus) 50 ML IV ×3 (04:45→21:35)
[2024-09-18 05:32] LABS: Basophils # 0.1 10^3/uL (0.0-0.1); Basophils % 1.5 %; Eosinophils # 0.1 10^3/uL (0.0-0.8); Eosinophils % 1.6 %; Hematocrit 31.2 % (37-53); Lymphocytes # 1.5 10^3/uL (0.8-4.8); Lymphocytes % 20.5 %; Mean Corpuscular HGB Conc 31.4 g/dL (30-55); Mean Corpuscular Hemoglobin 27.8 pg (27-33); Mean Corpuscular Volume 88.4 fl (82-101); Mean Platelet Volume 10.9 fL (7.4-10.4); Monocytes # 0.6 10^3/uL (0.2-0.9); Monocytes % 7.9 %; Neutrophils # 5.11 10^3/uL (1.8-7.7); Nucleated Red Blood Cells % 0 %; Platelet Count 106 10^3/cmm (157-399); Red Blood Count 3.53 10^6/uL (3.85-5.65); Red Cell Distribution Width 18.1 % (12.1-15.1); White Blood Count 7.51 10^3/uL (3.29-11.43)
[2024-09-18 06:00] LABS: Blood Urea Nitrogen 21 mg/dL (6-20); Calcium 8.1 mg/dL (8.5-10.5); Carbon Dioxide 29 mmol/L (22-29); Chloride 96 mmol/L (98-107); Creatinine Clr Calc Pharmacy 129.9424; Glomerular Filtration Rate 116.2 mL/min (90-130); Glucose 104 mg/dL (65-115); Osmolality Calculated 273 mOsm/kg (285-295); Sodium 130 mmol/L (136-145)
[2024-09-18 06:03] LABS: Anion Gap 9.9 (5-19); Potassium 4.9 mmol/L (3.5-5.1)
[2024-09-18 06:11] LABS: Glucose Point of Care 125 mg/dL (70-110)
--- NOTE | 2024-09-18 07:48 | PM.PN ---
Subjective Subjective: Patient going for debridement. No chest pain. Vitals/I&O/Wt Last Vital Signs Temp 98.0 F 09/18/24 07:32 Pulse 90 09/18/24 07:32 Resp 13 09/18/24 07:32 BP 115/76 09/18/24 07:32 Pulse Ox 95 09/18/24 07:32 O2 Del Method Room Air 09/18/24 07:32 O2 Flow Rate 4 09/15/24 16:00 FiO2 21 09/03/24 08:17 09/17/24 09/18/24 09/18/24 22:59 06:59 14:59 Intake Total 2826.5 / 3896.5 750 / 4646.5 Output Total 1000 / 2200 1400 / 3600 Balance 1826.5 / 1696.5 -650 / 1046.5 Weight last 48 hrs Weight 216 lb 4.8 oz Weight 216 lb 4.8 oz Physical Exam Narrative: GENERAL: Patient is alert, awake and oriented x3. HEART: Regular S1 and S2. No murmur, rub or gallop. LUNGS: Clear to auscultate bilaterally. CENTRAL NERVOUS SYSTEM: Grossly nonfocal. EXTREMITIES: Right leg has dressing applied. Urinary Catheter Management: Burciaga: Cath Placed During This Visit: yes Reason for Continuing Indwelling Catheter: Acute Urinary Retention or Obstruction Urinary Catheter Date of Insertion: 08/31/24 Urinary Catheter Time of Insertion: 19:00 Data 09/18/24 04:42 09/18/24 04:42 A&P Assessment and plan (1) Ischemic cardiomyopathy: (2) PAD (peripheral artery disease): (3) Lower extremity edema: Plan Patient is stable from cardiac standpoint. Continue with Lasix. Continue Plavix. Will continue to hold Eliquis at this time. Close I and Os. Monitor renal function. Continue coreg and entresto Thank you for involving us with care of this patient. We will continue to follow. Please call with questions. Attestations Medical Necessity Statement*: Care expected to cross 2 midnights. Coding Level of Care Code Acute Code for [facility] Fwd Diagnoses Ischemic cardiomyopathy I25.5 PAD (peripheral artery disease) I73.9 Lower extremity edema R60.0
--- NOTE | 2024-09-18 09:34 | P.PN_ITS ---
Subjective 2 Subjective: Patient with critical limb ischemia of the right lower extremity status post revascularization with angiogram and balloon angioplasty. We did a debridement 48 hours ago removal of the necrotic skin of the right lower extremity leaving a large patch of tissue that had not declared itself yet with the hopes of seeing improvement. Over the last 24 hours wound has continued to deteriorate and now is frankly leading to ischemia and necrosis. Vitals/I&O/Wt Last Vital Signs Temp 98.0 F 09/18/24 07:32 Pulse 90 09/18/24 07:32 Resp 13 09/18/24 07:32 BP 115/76 09/18/24 07:32 Pulse Ox 95 09/18/24 07:32 O2 Del Method Room Air 09/18/24 07:32 O2 Flow Rate 4 09/15/24 16:00 FiO2 21 09/03/24 08:17 09/17/24 09/18/24 09/18/24 22:59 06:59 14:59 Intake Total 2826.5 / 3896.5 750 / 4646.5 Output Total 1000 / 2200 1400 / 3600 Balance 1826.5 / 1696.5 -650 / 1046.5 Weight last 48 hrs Weight 216 lb 4.8 oz Weight 216 lb 4.8 oz Physical Exam 2 Extremity: NARRATIVE EXTREMITY EXAM: There is a large patch of tissue in the right leg anterior lateral aspect that is now completely ischemic/necrotic and will require debridement Urinary Catheter Management: Burciaga: Cath Placed During This Visit: yes Reason for Continuing Indwelling Catheter: Acute Urinary Retention or Obstruction Urinary Catheter Date of Insertion: 08/31/24 Urinary Catheter Time of Insertion: 19:00 Data 09/18/24 04:42 09/18/24 04:42 A&P Assessment and plan (1) Chronic venous insufficiency: (2) PAD (peripheral artery disease): (3) Critical limb ischemia of right lower extremity: Plan We have allow for more than 48 hours for the skin in the right lower extremity to completely demarcate, upon my evaluation this morning the skin is completely ischemic and is starting to look necrotic, at this point we are sure that there will not be recovery of that tissue and therefore we will proceed for excision. I have discussed with the patient I have informed him that after excision he will have a very large wound on the right lower extremity that will require months to heal, he will require a wound VAC and follow-up as outpatient in the wound care clinic 2-3 times per week to have the wound VAC change after and of granulation tissue has formed. After the granulation tissue is created he will require skin grafts. Unfortunately due to his poor vascularity there is a good chance that the wound never granulates and if this happens his Option will be to proceed with plastic surgery evaluation for a flap creation versus an amputation amputation. He shows understanding and is agreeable to proceed to the OR. I have also Splane to him that there is risk for needing additional excisions, there is risk for bleeding after surgery, there can be extensive soft tissue infection due to the new that the skin, there can be additional complications that may lead to need for an early amputation. He shows understanding is agreeable to proceed to the OR. Attestations 2 Medical Necessity Statement*: Will require from the surgical standpoint at least 3 to 4 days of hospital stay as he will require 1 more wound VAC change before transition to the outpatient setting. Coding Level of Care Code Acute Code for [employer] [facility] [employer] Diagnoses Chronic venous insufficiency I87.2 PAD (peripheral artery disease) I73.9 Critical limb ischemia of right lower extremity I70.221
--- NOTE | 2024-09-18 11:35 | PM.OP ---
Operative Report Date of procedure: September 18, 2024 Pre-op diagnosis: Right lower extremity limb ischemia Post-op diagnosis: Same Post-op findings: There was necrosis of the skin and subcutaneous tissue to the level of the fascia of a large portion of the skin of the anterolateral leg on the right, the total wound measured 40 x 15 x 1 cm Procedure done: Excision and debridement to the level of the fascia of an area measuring 40 x 15 x 1 cm, wound VAC placement Specimens removed/disposition: Skin and subcutaneous tissue right lower extremity. Surgeon: Bienvenido Mazariegos MD Dust Collector Attendant: AISLINN OR Staff Estimated blood loss: 20 Brief History: This a 59-year-old male who presents to the hospital with right lower extremity ischemia due to peripheral artery disease, he was medically manage and subsequently revascularized with an angiogram balloon angioplasty and stent placement, unfortunately due to the lack of perfusion to the leg he developed soup cutaneous and skin necrosis, he underwent debridement 3 days ago but over the last 48 hours the superficial skin of the leg has completely demarcated into ischemic and necrotic tissue and therefore additional debridement will be needed. We discussed all risk and benefits as documented in my preop note and decided to proceed. Procedure: Patient was brought into the OR, he was placed in a supine position. Mother anesthesia and sedation was given. Since patient did not have any sensation of the level of occipital anesthesia we decided to proceed with sedation. The right lower extremity was prepped and draped in usual sterile fashion. Timeout was noted. There is a previous debridement appeared healthy, the patch of skin on the anterolateral aspect of the right leg was completely demarcated I used blade to completely excise the devitalized tissue, it was noted that the skin and subcutaneous tissue was devitalized up to the level of the fascia and the majority of the wound, the specimen was completely excised with a 10 blade and passed for pathology. Hemostasis was achieved with electrocautery, and #3 Vicryl was also used to ligate one of the foundation stage teacher veins. The wound was irrigated with saline. Hemostasis was verified. I then proceeded to mature the wound, it had measurement about 40 x 15 x 1 cm. Wound VAC was then placed in the following fashion, Adaptic was placed in the areas of exposed fascia, this was then covered with black sponge and wound VAC dressing in standard fashion. At the end of the procedure all counts were correct, the patient tolerated well the procedure and was transferred to the PACU in stable condition. Patient will likely require 1 more trip to the OR for wound VAC change and possible additional debridement as needed, this will be planned for Thursday or Thursday.
[2024-09-18] MEDS: fentaNYL 50 mcg/mL INJ 2mL IVP (11:36)
[2024-09-18 12:05] LABS: Glucose Point of Care 108 mg/dL (70-110)
--- NOTE | 2024-09-18 12:15 | PC.NURSE ---
received from pacu via stretcher into room 106 at 1155.report received.pt is drowsy but easily awakened.pt had just been given fentanyl in pacu...but is in extreme pain in rle.wound vac intact and has 125 mmhg suction.drsgs are dry and intact.aflutter at controlled rate on monitor.bp stable.will cont to observed closely.
[2024-09-18] MEDS: pantoprazole DR 40 mg Tablet PO (12:38)
[2024-09-18] MEDS: potassium chloride ER 20 mEq Tablet PO (12:38)
[2024-09-18] MEDS: clopidogrel 75 mg Tablet PO (12:38)
[2024-09-18] MEDS: metoprolol succinate ER (24 HR) 25 mg Tablet PO (12:38)
[2024-09-18] MEDS: tamsulosin 0.4 mg Capsule PO (12:38)
[2024-09-18] MEDS: duloxetine 20 mg Capsule PO ×2 (12:39→17:46)
[2024-09-18] MEDS: nicotine 14 mg Patch 1 PATCH TRANSDERMA (12:39)
[2024-09-18] MEDS: FUROsemide 40 mg Tablet PO ×2 (12:46→16:14)
[2024-09-18 16:44] LABS: Glucose Point of Care 139 mg/dL (70-110)
[2024-09-18] MEDS: HYDROmorphone 1 mg/mL INJ 1 mL IVP (19:26)
[2024-09-18 21:01] LABS: Glucose Point of Care 178 mg/dL (70-110)
[2024-09-18] MEDS: insulin lispro 100 unit/1 mL SUBCUT (21:35)
--- NOTE | 2024-09-18 21:39 | P.PN_ITS ---
Subjective 2 Subjective: He has been having pain after additional debridement today. Breathing overall has improved. Secretions mostly resolved. Vitals/I&O/Wt Last Vital Signs Temp 97.3 F L 09/18/24 20:00 Pulse 109 H 09/18/24 20:00 Resp 18 09/18/24 20:00 BP 102/77 09/18/24 20:00 Pulse Ox 94 09/18/24 19:26 O2 Del Method Room Air 09/18/24 16:00 O2 Flow Rate 4 09/15/24 16:00 FiO2 21 09/03/24 08:17 09/18/24 09/18/24 09/18/24 06:59 14:59 22:59 Intake Total 750 / 4646.5 640 / 640 410 / 1050 Output Total 1400 / 3600 2450 / 2470 Balance -650 / 1046.5 620 / 620 -2040 / -1420 Weight last 48 hrs Weight 98.112 kg Weight 98.112 kg Physical Exam 2 Const: COMMON NORMALS: patient oriented x3 and alert GENERAL APPEARANCE: c ooperative ORIENTATION/CONSCIOUSNESS: Yes awake HENMT: COMMON NORMALS: oropharynx normal Neck/C-Spine: COMMON NORMALS: no JVD Resp: COMMON NORMALS: normal respiratory effort and clear to auscultation bilaterally AUSCULTATION: clear to auscultation bilaterally Cardio: COMMON NORMALS: no JVD, regular rhythm, S1 normal heart sound present, S2 normal heart sound present and No murmurs present (Cardio) RHYTHM: regular rhythm HEART SOUNDS: S1 normal heart sound present and S2 normal heart sound present GI: COMMON NORMALS: Normal to inspection, nondistended, normoactive bowel sounds present, Soft to palpation and non-tender PALPATION: Yes Soft to palpation Extremity: COMMON NORMALS: no joint enlargement and no pedal edema N ARRATIVE EXTREMITY EXAM: Wound VAC dressing in place covering large irregular shallow ulceration/confluent ulceration beds, ruptured bullae, with desquamation, small amount of necrotic epidermis on mid lateral aspect aspect of the lower leg. OTHER: Small round ulcerations on left lower leg. Dry scaly patches over the elbows. Neuro: COMMON NORMALS: patient oriented x3 and moves all extremities S ENSORIUM/ORIENTATION: Yes alert Skin: COMMON NORMALS: no rashes or lesions noted GENERAL SKIN EXAM: no rashes or lesions noted Urinary Catheter Management: Burciaga: Cath Placed During This Visit: yes Reason for Continuing Indwelling Catheter: Accurate Measurement of Urinary Output in Critically Ill Patients Urinary Catheter Date of Insertion: 08/31/24 Urinary Catheter Time of Insertion: 19:00 Data 09/18/24 04:42 09/18/24 04:42 A&P Assessment and plan (1) Ischemic cardiomyopathy: Plan #Acute on chronic congestive systolic heart failure exacerbation #Diabetes mellitus, insulin-dependent #Cellulitis right lower extremity #Acute limb ischemia?ruled out. #Peripheral arterial disease #Dyslipidemia, hypertension #Peripheral neuropathy #GERD #Coronary artery disease status post PCI #History of STEMI, NSTEMI Right lower extremity wound: Underwent additional debridement of devitalized dermis in OR today with surgery. Wound VAC placed. Reviewed vitals, CBC, currently afebrile, without leukocytosis. Continue pain control, at increased Dilaudid dose to 1 mg. Continue hydrocodone for moderate pain. Reassess blood counts as has been on DAPT and with some bleeding from the wound with debridements and after revascularization. Discussed with the surgeon. Continue hospitalization for further reassessment of the wound with surgery, at least 1 wound VAC dressing change. Reassessment for granulation. Subsequently some point possible skin graft. Continues on aspirin and Plavix. Monitor for risk of bleeding with DAPT. Monitor for risk of further bleeding. Reviewed cardiology note. Anticoagulation has not been initiated yet with need for Additional debridement. Reviewed cardiology note. Reviewed vitals, CBC, BMP, monitor for risk of kidney injury. Reassess chemistry. For now continue antibiotic coverage with Zosyn, linezolid. Monitor for risk of neutropenia, agranulocytosis Additionally follow-up skin biopsy results from around the lesion, consider further alternative diagnosis like pyoderma gangrenosum. Hyponatremia: Improving. On review of sodium. No limitation of sodium in diet. Diabetes: A1c reviewed, 7.2. Reviewed POC glucose. Possible pseudomonal pneumonia: Symptomatically improving, subsiding sputum production. Improved breathing. Added status primary. Continue flutter valve. Continue Zosyn for now. Interstitial infiltrates noted on prior x-ray, reviewed sputum culture, growing pansensitive Pseudomonas. He has improved in terms of his respiratory status, is weaned off oxygen, doing well on room air. Heart failure exacerbation: Overall compensated. Reassess. Monitor volume status. Had to hold Entresto, Imdur for now. Metoprolol continued for now. Monitor for risk of hypotension. Currently receiving hydration after contrast with angiography. Monitor for worsening fluid overload. Reassess volume status. Reassess kidney function. Reviewed vitals, intake and output, potassium, as well as renal function, creatinine, BUN, bicarb. In negative balance overnight -810 mL. Edema has been subsiding. Continue. Monitor for risk of electrolyte deficiency with IV diuretic, risk of kidney injury. Reassess chemistry. Decompensated systolic and diastolic CHF. Decreasing lower extremity edema. Reviewed intake and output, weight, vitals. Renal function, potassium, exam. Continues with 80 mg twice daily Lasix. Continue potassium replacement. Entresto. Atrial fibrillation: Continue metoprolol. Cardiology considering adding Eliquis. Has not been started yet requiring multiple procedures for debridement of right lower leg. Monitor for bleeding risk on DAPT plus anticoagulation. Thrombocytopenia: Again moderate thrombocytopenia, platelets 104. Hold off starting anticoagulation for now in anticipation of possible additional need for debridement. Recheck platelet level. Heparin-induced antibody negative. Reviewed platelet level, continues to improve today up to 149. Reviewed DALTON negative., Platelet antibodies negative. Low likelihood of HIT. UTI: Reviewed urine culture, noted E. coli growing. Continue Zosyn. Possible psoriasis: With dry scaly patches on bilateral elbows, Auspitz sign. Discussed with him follow-up with dermatology. Attestations 2 Medical Necessity Statement*: Continue admission for assessment and management of large right lower extremity wound, in the setting of peripheral arterial disease, status post stenting congestive heart failure. and High MDM includes amount and/or complexity of data reviewed/ordered [ previous or external records, resulted lab(s)/test(s), ordered lab(s)/test(s) and other healthcare professional discussion] and described risk of complication, morbidity or mortality of management as documented Diagnoses Ischemic cardiomyopathy I25.5
[2024-09-19] VITALS (49 sets, daily range): BP systolic 122–150; BP diastolic 54–90; PULSE 67–147; RESP 13–33; TEMP 36.4–36.9; O2SAT 89–99
[2024-09-19] MEDS: HYDROmorphone 1 mg/mL INJ 1 mL IVP ×6 (00:08→20:17)
[2024-09-19] MEDS: linezolid premix 600 MG/300 ML PREMIX 300 MG IV ×2 (00:09→12:52)
[2024-09-19] MEDS: HYDROcodone-acetaminophen 5-325 mg Tablet 1 TAB PO ×3 (03:57→22:31)
[2024-09-19 04:15] LABS: Basophils # 0.1 10^3/uL (0.0-0.1); Basophils % 1.4 %; Eosinophils # 0.1 10^3/uL (0.0-0.8); Hematocrit 30.5 % (37-53); Lymphocytes # 1.5 10^3/uL (0.8-4.8); Mean Corpuscular HGB Conc 31.5 g/dL (30-55); Mean Corpuscular Hemoglobin 27.9 pg (27-33); Mean Corpuscular Volume 88.7 fl (82-101); Mean Platelet Volume 11.1 fL (7.4-10.4); Monocytes # 0.6 10^3/uL (0.2-0.9); Monocytes % 8.8 %; Neutrophils # 4.55 10^3/uL (1.8-7.7); Neutrophils % 66.1 %; Nucleated Red Blood Cells % 0 %; Platelet Count 113 10^3/cmm (157-399); Red Blood Count 3.44 10^6/uL (3.85-5.65); Red Cell Distribution Width 18.3 % (12.1-15.1)
[2024-09-19 04:38] LABS: Anion Gap 12.7 (5-19); Blood Urea Nitrogen 18 mg/dL (6-20); Calcium 8.7 mg/dL (8.5-10.5); Carbon Dioxide 28 mmol/L (22-29); Chloride 91 mmol/L (98-107); Creatinine Clr Calc Pharmacy 101.0663; Glucose 114 mg/dL (65-115); Osmolality Calculated 267 mOsm/kg (285-295); Potassium 4.7 mmol/L (3.5-5.1); Sodium 127 mmol/L (136-145)
[2024-09-19] MEDS: piperacillin-tazobactam 3.375 GM in sodium chloride 0.9% (plus) 50 ML IV ×3 (04:54→21:55)
[2024-09-19 06:39] LABS: Glucose Point of Care 139 mg/dL (70-110)
--- NOTE | 2024-09-19 07:05 | P.PN_ITS ---
Subjective 2 Subjective: Patient showing good progression after debridement of necrotic skin and subcutaneous tissue of the right lower extremity due to arterial insufficiency. Wound VAC is in place and working well pain has been controlled at this time. Vitals/I&O/Wt Last Vital Signs Temp 97.7 F 09/19/24 04:00 Pulse 67 09/19/24 06:00 Resp 17 09/19/24 04:54 BP 122/77 09/19/24 04:00 Pulse Ox 99 09/19/24 04:54 O2 Del Method Room Air 09/19/24 04:00 O2 Flow Rate 4 09/15/24 16:00 FiO2 21 09/03/24 08:17 09/18/24 09/19/24 09/19/24 22:59 06:59 14:59 Intake Total 410 / 1050 350 / 1400 Output Total 3450 / 3470 1400 / 4870 Balance -3040 / -2420 -1050 / -3470 Weight last 48 hrs Weight 202 lb Weight 216 lb 4.8 oz Physical Exam 2 Extremity: NARRATIVE EXTREMITY EXAM: Right lower extremity wound is covered with a wound VAC and I intact dressing, the wound VAC has a good seal the output has been about 40 cc of bloody fluid overnight Urinary Catheter Management: Burciaga: Cath Placed During This Visit: yes Reason for Continuing Indwelling Catheter: Accurate Measurement of Urinary Output in Critically Ill Patients Urinary Catheter Date of Insertion: 08/31/24 Urinary Catheter Time of Insertion: 19:00 Data 09/19/24 03:28 09/19/24 03:28 A&P Assessment and plan (1) Arterial embolism and thrombosis of lower extremity: (2) Critical limb ischemia of right lower extremity: (3) PAD (peripheral artery disease): Plan Patient is showing good progression after extensive debridement of the right lower extremity due to skin and subcutaneous tissue necrosis caused by arterial insufficiency. Patient currently doing well pain control has been achieved. From the surgical standpoint he will require 1 wound VAC change while in-house, this should be done between tomorrow and the day after, I will be going out of town today and I will discuss with my colleague Dr. Ramirez for follow-up for this patient, likely plan is to return to the OR tomorrow for wound VAC change additional debridement as needed. After that patient will be able to transition to the outpatient setting with a portable wound VAC. Portable wound VAC should be able to be set up by case management. And patient can follow at the wound care clinic to get a change of the bag in the long-term. It will take probably months for the wound to completely granulate and after that he will need to be evaluated by plastic surgery for skin grafting of the right lower extremity. -For possible wound VAC change tomorrow -Right lower extremity wound is irregular in nature, measures 15 x 40 x 1 cm and compromises the skin subcutaneous tissue all the way down to the fascia. -Case management consult for wound VAC -All other management per primary Attestations 2 Medical Necessity Statement*: Per primary Coding Level of Care Code Acute Code for [facility] Diagnoses Arterial embolism and thrombosis of lower extremity I74.3 Critical limb ischemia of right lower extremity I70.221 PAD (peripheral artery disease) I73.9
[2024-09-19] MEDS: clopidogrel 75 mg Tablet PO (08:09)
[2024-09-19] MEDS: tamsulosin 0.4 mg Capsule PO (08:09)
[2024-09-19] MEDS: potassium chloride ER 20 mEq Tablet PO ×2 (08:10→17:00)
[2024-09-19] MEDS: FUROsemide 40 mg Tablet PO ×2 (08:10→16:32)
[2024-09-19] MEDS: duloxetine 20 mg Capsule PO ×2 (08:10→17:00)
[2024-09-19] MEDS: nicotine 14 mg Patch 1 PATCH TRANSDERMA (08:10)
[2024-09-19] MEDS: metoprolol succinate ER (24 HR) 25 mg Tablet PO (08:10)
[2024-09-19] MEDS: pantoprazole DR 40 mg Tablet PO (08:10)
--- NOTE | 2024-09-19 11:18 | P.PN_ITS ---
<Statement entered by Jose M Cuello M.D - 09/21/24 08:26> Patient was evaluated and cared for in conjunction with an advanced practice practitioner. I personally examined the patient and reviewed the chart and all pertinent data including imaging, telemetry, and laboratory results. I discussed the patient in detail with the advanced practice practitioner. Please see their note for complete progress note, results and agreed upon plan of care for the patient. Patient has no significant chest pain or shortness of breath GENERAL: Patient is alert and oriented HEART: Regular S1 and S2 LUNGS: Mild crackles bilaterally EXTREMITIES: Lower extremities with 2+ edema Assesment and Plan (1) Ischemic cardiomyopathy (2) PAD (peripheral artery disease) (3) Lower extremity edema Continue holding Eliquis. Can continue with antiplatelet therapy. Continue IV diuresis. Is diuresing very well. Monitor renal function. Monitor I&O's. Thank you for involving us with care of this patient. Will will continue to follow. please call with questions. Subjective 2 Subjective: Patient doing well this morning. He has some soreness to his right leg but overall this is controlled. He has had a couple of debridements to the wounds on his right leg and will most likely require long-term wound VAC therapy. His foot is warm with good cap refill. No edema bilaterally. Lungs are clear throughout. He appears normal sinus rhythm at this time. Currently holding Eliquis due to patient will most likely be going for another debridement tomorrow. Medications: Reviewed: Yes Vitals/I&O/Wt Last Vital Signs Temp 97.8 F 09/19/24 08:00 Pulse 95 09/19/24 08:22 Resp 18 09/19/24 08:22 BP 133/90 09/19/24 08:00 Pulse Ox 96 09/19/24 08:22 O2 Del Method Room Air 09/19/24 08:22 O2 Flow Rate 4 09/15/24 16:00 FiO2 21 09/03/24 08:17 09/18/24 09/19/24 09/19/24 22:59 06:59 14:59 Intake Total 410 / 1050 350 / 1400 390 / 390 Output Total 3450 / 3470 1400 / 4870 Balance -3040 / -2420 -1050 / -3470 390 / 390 Weight last 48 hrs Weight 202 lb Weight 216 lb 4.8 oz Physical Exam 2 Narrative: General: No apparent distress, healthy appearing, well nourished Muskuloskeletal: Full ROM Lymphatic: no lymphedema noted Respiratory: Normal respiratory effort, clear to auscultation bilaterally throughout all lung stevens, no use of accessory muscles Cardio: No JVD, regular rate, regular rhythm, S1 S2 normal, no murmurs GI: Normal to inspection, nondistended Extremities: Full ROM, normal, normal capillary refill, no cyanosis or edema Neuro: Alert and oriented x4, no focal motor deficits Psych: Affect normal, denies suicidal ideation, mental status grossly normal Skin: Right lower extremity currently wrapped up with wound vac in place. Foot is warm with good capillary refill. No evidence of ischemia bilateral lower extremities Urinary Catheter Management: Burciaga: Cath Placed During This Visit: yes Reason for Continuing Indwelling Catheter: Accurate Measurement of Urinary Output in Critically Ill Patients Urinary Catheter Date of Insertion: 08/31/24 Urinary Catheter Time of Insertion: 19:00 Data 09/19/24 03:28 09/19/24 03:28 A&P Assessment and plan (1) Ischemic cardiomyopathy: (2) PAD (peripheral artery disease): (3) Lower extremity edema: Plan Patient is stable from a cardiology standpoint. Eliquis to be restarted when general surgery allows. At this time we are holding it. I will add aspirin 81 mg until we can add back the Eliquis. Patient is euvolemic but is responding well to diuresis. Will continue Lasix. Creatinine stable. He has a LifeVest in place. Continue Entresto. Continue beta-dev. Attestations 2 Medical Necessity Statement*: Defer to primary. Coding Level of Care Code Acute Code for [facility] Fwd Diagnoses Ischemic cardiomyopathy I25.5 PAD (peripheral artery disease) I73.9 Lower extremity edema R60.0
[2024-09-19 11:56] LABS: Glucose Point of Care 118 mg/dL (70-110)
--- NOTE | 2024-09-19 12:39 | PC.SOCIAL ---
IMM Updated Updated pt on IMM. No questions voiced. Provided pt a copy. Initialed, dated, & timed copy in chart.
[2024-09-19] MEDS: aspirin 81 mg EC Tablet PO (12:43)
--- NOTE | 2024-09-19 14:41 | P.PN_ITS ---
Subjective 2 Subjective: Patient was seen this morning, reports pain at surgical site, no fevers, chills, does report generalized weakness, Vitals/I&O/Wt Last Vital Signs Temp 97.6 F 09/19/24 12:00 Pulse 90 09/19/24 12:00 Resp 31 H 09/19/24 12:42 BP 124/72 09/19/24 12:00 Pulse Ox 96 09/19/24 12:42 O2 Del Method Room Air 09/19/24 12:00 O2 Flow Rate 4 09/15/24 16:00 FiO2 21 09/03/24 08:17 09/18/24 09/19/24 09/19/24 22:59 06:59 14:59 Intake Total 410 / 1050 350 / 1400 690 / 690 Output Total 3450 / 3470 1400 / 4870 1400 / 1400 Balance -3040 / -2420 -1050 / -3470 -710 / -710 Weight last 48 hrs Weight 91.626 kg Weight 98.112 kg Physical Exam 2 Const: COMMON NORMALS: no acute distress and patient oriented x3 Resp: COMMON NORMALS: normal respiratory effort, No retractions, No use of accessory muscles and clear to auscultation bilaterally AUSCULTATION: clear to auscultation bilaterally Cardio: COMMON NORMALS: regular rate, regular rhythm, S1 normal heart sound present and S2 normal heart sound present RATE: regular rate RHYTHM: r egular rhythm HEART SOUNDS: S1 normal heart sound present and S2 normal heart sound present GI: COMMON NORMALS: Normal to inspection, nondistended, normoactive bowel sounds present and non-tender Extremity: COMMON NORMALS: no pedal edema NARRATIVE EXTREMITY EXAM: Right lower extremity wrapped, wound VAC in place Neuro: COMMON NORMALS: patient oriented x3 Psych: COMMON NORMALS: mental status grossly normal Urinary Catheter Management: Burciaga: Cath Placed During This Visit: yes Reason for Continuing Indwelling Catheter: Accurate Measurement of Urinary Output in Critically Ill Patients Urinary Catheter Date of Insertion: 08/31/24 Urinary Catheter Time of Insertion: 19:00 Data 09/19/24 03:28 09/19/24 03:28 A&P Assessment and plan (1) Ischemic cardiomyopathy: Plan #Acute on chronic congestive systolic heart failure exacerbation #Diabetes mellitus, insulin-dependent #Cellulitis right lower extremity #Acute limb ischemia?ruled out. #Peripheral arterial disease #Dyslipidemia, hypertension #Peripheral neuropathy #GERD #Coronary artery disease status post PCI #History of STEMI, NSTEMI Right lower extremity wound, with right lower extremity limb ischemia status post Excision and debridement to the level of the fascia of an area measuring 40 x 15 x 1 cm, wound VAC placement Plan ? Continue IV antibiotics -continue wound VAC, continue to monitor Continue on aspirin and Plavix. Right lower extremity limb ischemia, peripheral arterial disease -Percutaneous lithotripsy followed by balloon angioplasty followed by mid SFA stent postdilated with balloon. Excellent angiographic result with good flow was restored in the SFA all the way to the foot with two-vessel runoff. -On aspirin, Plavix Hyponatremia: Monitor Diabetes: A1c reviewed, 7.2. Reviewed POC glucose. Possible pseudomonal pneumonia: -Concern for increased sputum production -Continue IV Zosyn Heart failure exacerbation: Euvolemic -Soft blood pressures - Had to hold Entresto, Imdur for now -Metoprolol continued for now Atrial fibrillation: -Continue metoprolol -Likely Eliquis therapy to be added after surgical debridements have completed Thrombocytopenia: Again moderate thrombocytopenia, platelets 119 UTI: Reviewed urine culture, noted E. coli growing. Continue Zosyn. Possible psoriasis: With dry scaly patches on bilateral elbows, Auspitz sign. Discussed with him follow-up with dermatology. N.p.o. midnight, for surgical debridement tomorrow 1 dose Lovenox Continue IV antibiotics Attestations 2 Medical Necessity Statement*: Patient requires hospitalization for right lower extremity wound,, UTI, Pseudomonas pneumonia Diagnoses Ischemic cardiomyopathy I25.5
[2024-09-19] MEDS: enoxaparin 40 mg/0.4 mL Syringe SUBCUT (16:32)
--- NOTE | 2024-09-19 17:06 | ECG_ITS ---
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 Measurements Intervals [place] Rate: 90 P: 0 SC: 0 QRS: -12 QRSD: 94 T: 121 QT: 357 QTc: 437 Interpretive Statements ATRIAL FLUTTER ANTERIOR MYOCARDIAL INFARCTION , OF INDETERMINATE AGE [40+ ms Q WAVE AND/OR ST/T ABNORMALITY IN V3/V4] Compared to ECG 09/15/2024 12:39:29 No significant changes Electronically Signed On 09-19-2024 20:25:00 RELIGIOUS LEADER by Jose M Cuello M.D. [email or web address]
[2024-09-19 17:09] LABS: Glucose Point of Care 151 mg/dL (70-110)
[2024-09-19] MEDS: insulin lispro 100 unit/1 mL SUBCUT (17:40)
[2024-09-19 20:53] LABS: Glucose Point of Care 135 mg/dL (70-110)
[2024-09-20] VITALS (30 sets, daily range): BP systolic 99–129; BP diastolic 54–73; PULSE 72–114; RESP 12–24; TEMP 36.3–36.9; O2SAT 92–99
[2024-09-20] MEDS: HYDROmorphone 1 mg/mL INJ 1 mL IVP ×5 (00:31→19:48)
[2024-09-20] MEDS: linezolid premix 600 MG/300 ML PREMIX 300 MG IV (00:31)
[2024-09-20 04:53] LABS: Basophils # 0.1 10^3/uL (0.0-0.1); Basophils % 1.2 %; Eosinophils # 0.1 10^3/uL (0.0-0.8); Eosinophils % 2.3 %; Hematocrit 30.8 % (37-53); Lymphocytes # 1.2 10^3/uL (0.8-4.8); Lymphocytes % 19.8 %; Mean Corpuscular HGB Conc 32.1 g/dL (30-55); Mean Corpuscular Hemoglobin 27.5 pg (27-33); Mean Corpuscular Volume 85.6 fl (82-101); Monocytes # 0.4 10^3/uL (0.2-0.9); Monocytes % 7.3 %; Neutrophils # 4.13 10^3/uL (1.8-7.7); Neutrophils % 68.9 %; Nucleated Red Blood Cells % 0 %; Platelet Count 134 10^3/cmm (157-399); Red Cell Distribution Width 18.1 % (12.1-15.1)
[2024-09-20] MEDS: piperacillin-tazobactam 3.375 GM in sodium chloride 0.9% (plus) 50 ML IV ×2 (04:54→22:10)
[2024-09-20 05:21] LABS: Procalcitonin 0.07 ng/mL (0-0.5)
[2024-09-20 05:30] LABS: Alanine Aminotransferase 17 U/L (0-41); Albumin Level 3.4 g/dL (3.5-5.2); Alkaline Phosphatase 239 U/L (40-130); Anion Gap 16.4 (5-19); Aspartate Amino Transferase 14 U/L (0-40); Blood Urea Nitrogen 20 mg/dL (6-20); C Reactive Protein 25.5 mg/L (0.0-4.9); Calcium 8.8 mg/dL (8.5-10.5); Carbon Dioxide 27 mmol/L (22-29); Chloride 90 mmol/L (98-107); Creatinine Clr Calc Pharmacy 109.9612; Globulin 2.9 g/dL (1.3-4.6); Glomerular Filtration Rate 99.6 mL/min (90-130); Glucose 110 mg/dL (65-115); Osmolality Calculated 271 mOsm/kg (285-295); Potassium 4.4 mmol/L (3.5-5.1); Sodium 129 mmol/L (136-145); Total Bilirubin 0.9 mg/dL (0.15-1.2); Total Protein 6.3 g/dL (6.6-8.7)
[2024-09-20 06:48] LABS: Glucose Point of Care 150 mg/dL (70-110)
[2024-09-20] MEDS: FUROsemide 40 mg Tablet PO ×2 (08:04→16:59)
[2024-09-20] MEDS: HYDROcodone-acetaminophen 5-325 mg Tablet 1 TAB PO ×2 (08:05→21:37)
--- NOTE | 2024-09-20 08:41 | P.PN_ITS ---
Subjective 2 Subjective: Patient feeling well. Plan for surgical debridement again. Diuresing well. Vitals/I&O/Wt Last Vital Signs Temp 98.4 F 09/20/24 07:42 Pulse 97 09/20/24 07:42 Resp 24 H 09/20/24 07:42 BP 112/70 09/20/24 07:42 Pulse Ox 97 09/20/24 07:42 O2 Del Method Room Air 09/20/24 07:42 O2 Flow Rate 4 09/15/24 16:00 FiO2 21 09/03/24 08:17 09/19/24 09/20/24 09/20/24 22:59 06:59 14:59 Intake Total 930 / 1860 350 / 2210 Output Total 2250 / 3650 1375 / 5025 Balance -1320 / -1790 -1025 / -2815 Weight last 48 hrs Weight 197 lb 3.2 oz Weight 202 lb Physical Exam 2 Narrative: GENERAL: Patient is alert, awake and oriented x3. HEART: Regular S1 and S2. No murmur, rub or gallop. LUNGS: Clear to auscultate bilaterally. CENTRAL NERVOUS SYSTEM: Grossly nonfocal. EXTREMITIES: Right leg has dressing applied. Urinary Catheter Management: Burciaga: Cath Placed During This Visit: yes Reason for Continuing Indwelling Catheter: Accurate Measurement of Urinary Output in Critically Ill Patients Urinary Catheter Date of Insertion: 08/31/24 Urinary Catheter Time of Insertion: 19:00 Data 09/21/24 06:19 09/21/24 06:19 A&P Assessment and plan (1) Ischemic cardiomyopathy: (2) PAD (peripheral artery disease): (3) Lower extremity edema: Plan Patient is overall stable. Continue IV diuretics. Close I&O's. Monitor renal function. Continue antiplatelet therapy at this time. Hold off on anticoagulation as patient is requiring debridement of the lower extremity. Thank you for involving us with care of this patient. We will continue to follow. Please call with questions. Attestations 2 Medical Necessity Statement*: Care expected to cross 2 midnights. Coding Level of Care Code Acute Code for [facility] Fwd Diagnoses Ischemic cardiomyopathy I25.5 PAD (peripheral artery disease) I73.9 Lower extremity edema R60.0
--- NOTE | 2024-09-20 10:27 | PC.NURSE ---
off unit to surgery for wound debridement.
[2024-09-20] MEDS: sodium chloride 0.9% 1,000 ML 30 ML IV (11:11)
--- NOTE | 2024-09-20 12:20 | P.ANESUD_ITS ---
Pre-Anesthetic Update Pre-Anesthetic Assessment: Date of Surgery/Procedure: 09/20/24 Preop Sarita gnosis: Right lower extremity ulcerations Proposed Procedure: Operation Date: 09/14/24 07:00 Proposed Procedures p Peripheral Diagnostic(Not Applicable) - Nir Burnham MD Operation Date: 09/16/24 12:55 Proposed Procedures p Debridement right lower extremity wound(Right) - Bienvenido Mazariegos MD Operation Date: 09/18/24 09:20 Proposed Procedures p Debridement(Not Applicable) - Bienvenido Mazariegos MD Operation Date: 09/18/24 10:10 Proposed Procedures p Debridement(Right) - Bienvenido Mazariegos MD Operation Date: 09/19/24 09:30 Proposed Procedures p Debridement right lower extremity(Right) - Bienvenido Mazariegos MD s Wound Vac Placement(Right) - Bienvenido Mazariegos MD Operation Date: 09/20/24 12:00 Proposed Procedures p Sharp excisional Debridement RLE(Right) - Bryan Ramirez DO s Wound Vac Placement RLE(Right) - Bryan Ramirez DO Changes from Pre-Anesthetic Assessment: No changes since previous anesthetic, patient remains ill. Plan for MAC anesthetic, sodium 129 today Last Intake: Intake Last Liquid Date 09/15/24 Last Liquid Time 23:00 Last Solid Date 09/15/24 Last Solid Time 23:00 Labs Last 48hrs: Short CBC 09/19/24 09/20/24 Range/Units 03:28 04:35 WBC 6.90 6.00 (3.29-11.43) 10^ 3/uL Hgb 9.60 L 9.90 L (11.27-16.99) g/ dL Hct 30.5 L 30.8 L (37-53) % MCV 88.7 85.6 (82-101) fl Plt Count 113 L 134 L (157-399) 10^3/c mm Neut % (Auto) 66.1 68.9 % Neut # (Auto) 4.55 4.13 (1.8-7.7) 10^3/u L BMP 09/19/24 09/20/24 03:28 04:35 Sodium 127 L 129 L Potassium 4.7 4.4 Chloride 91 L 90 L Carbon Dioxide 28 27 BUN 18 20 Creatinine 0.9 0.8 Glucose 114 110 Calcium 8.7 8.8 Liver Function 09/20/24 Range/Units 04:35 Total Bilirubin 0.9 (0.15-1.2) mg/dL AST 14 (0-40) U/L ALT 17 (0-41) U/L Alkaline Phosphata se 239 H (40-130) U/L Albumin 3.4 L (3.5-5.2) g/dL Coags 09/20/24 04:35 C-Reactive Protein 25.5 H Vitals: Temperature 97.4 F L 09/20/24 10:31 Temperature Source Temporal Artery S can 09/20/24 10:31 Pulse Rate 99 09/20/24 10:31 Pulse Rhythm Regular 09/19/24 20:00 Pulse Strength 1+ Faint 09/19/24 20:00 Respiratory Rate 18 09/20/24 10:31 Respiratory Effort Spontaneous, Non- Labored 09/20/24 10:19 Respiratory Depth Normal 09/20/24 10:19 Respiratory Patter n Normal 09/20/24 04:54 Blood Pressure 122/70 09/20/24 10:31 Blood Pressure Olga n 87 09/20/24 10:31 Blood Pressure Pos ition Semi Fowlers 09/20/24 07:42 Pulse Oximetry 98 09/20/24 10:31 Oxygen Delivery Me thod Room Air 09/20/24 10:31 Oxygen Flow Rate 4 09/15/24 16:00 Fraction of Inspir ed Oxygen 21 09/03/24 08:17 Cardiac Studies: Echocardiogram 09/01/24 Echocardiogram Limited Views 06/05/23 Echocardiogram Ultrasound 10/01/20 Sestamibi Stress Test (Cardiology) 09/16
--- NOTE | 2024-09-20 12:21 | PM.PN ---
Vitals/I&O/Wt Last Vital Signs Temp 97.4 F L 09/20/24 10:31 Pulse 99 09/20/24 10:31 Resp 18 09/20/24 10:31 BP 122/70 09/20/24 10:31 Pulse Ox 98 09/20/24 10:31 O2 Del Method Room Air 09/20/24 10:31 O2 Flow Rate 4 09/15/24 16:00 FiO2 21 09/03/24 08:17 09/19/24 09/20/24 09/20/24 22:59 06:59 14:59 Intake Total 930 / 1860 350 / 2210 50 / 50 Output Total 2250 / 3650 1375 / 5025 Balance -1320 / -1790 -1025 / -2815 50 / 50 Weight last 48 hrs Weight 197 lb 3.2 oz Weight 202 lb Physical Exam Urinary Catheter Management: Burciaga: Cath Placed During This Visit: yes Reason for Continuing Indwelling Catheter: Accurate Measurement of Urinary Output in Critically Ill Patients Urinary Catheter Date of Insertion: 08/31/24 Urinary Catheter Time of Insertion: 19:00 Data 09/20/24 04:35 09/20/24 04:35 A&P Assessment and plan (1) Arterial embolism and thrombosis of lower extremity: (2) Critical limb ischemia of right lower extremity: (3) PAD (peripheral artery disease): Plan Sharp excisional debridement right lower extremity and wound VAC placement The risks and benefits of the procedure, including but limited to, bleeding, infection, scar, numbness, pain, further tissue loss, need for further procedures including possibly an amputation, were explained the patient. He is understanding the risks and wishes to proceed Attestations Medical Necessity Statement*: Per primary Coding Level of Care Code Acute Code for [facility] Fwd Diagnoses Arterial embolism and thrombosis of lower extremity I74.3 Critical limb ischemia of right lower extremity I70.221 PAD (peripheral artery disease) I73.9
--- NOTE | 2024-09-20 13:57 | PM.OP ---
Operative Report Date of procedure: September 20, 2024 Surgeon: Bryan Ramirez DO Procedure: Pre-op diagnosis: Right lower extremity limb ischemia Post-op diagnosis: Same Post-op findings: There was necrosis of the skin and subcutaneous tissue to the level of the fascia of a large portion of the skin of the anterolateral leg on the right, the total wound measured 40 x 15 x 1 cm Procedure done: Sharp excisional debridement to the level of the fascia on the right leg of an area measuring 40 x 15 x 1 cm, wound VAC placement Specimens removed/disposition: NONE Surgeon: Bryan Ramirez DO Film Library Clerk: AISLINN OR Staff Estimated blood loss: 20 Brief History: This a 59-year-old male who presents to the hospital with right lower extremity ischemia due to peripheral artery disease, he was medically manage and subsequently revascularized with an angiogram balloon angioplasty and stent placement, unfortunately due to the lack of perfusion to the leg he developed soup cutaneous and skin necrosis, he underwent debridement multiple times and a wound VAC was placed 2 days ago. He likely needs further debridement along with wound VAC replacement. We discussed all risk and benefits as documented in my preop note and decided to proceed. Procedure: Patient was brought into the OR, he was placed in a supine position. Mother anesthesia and sedation was given. Since patient did not have any sensation of the level of occipital anesthesia we decided to proceed with sedation. The right lower extremity was prepped and draped in usual sterile fashion. Timeout was noted. There is a previous debridement appeared healthy, the patch of skin on the anterolateral aspect of the right leg was completely demarcated I used blade to completely excise the devitalized tissue, it was noted that the skin and subcutaneous tissue was devitalized up to the level of the fascia and the majority of the wound, all areas of the wound with had at least a small amount of fibrinous exudate that was removed with a curette for sharp excisional debridement. The wound was irrigated with saline. Hemostasis was verified. I then proceeded to mature the wound, it had measurement about 40 x 15 x 1 cm. Wound VAC was then placed in the following fashion. At the end of the procedure all counts were correct, the patient tolerated well the procedure and was transferred to the PACU in stable condition.
--- NOTE | 2024-09-20 14:02 | ANE.PACU2 ---
Inpatient post-anesthesia follow up: Airway intact: Yes Vital signs: Temperature 98.2 F Pulse Rate 83 Respiratory Rate 22 Blood Pressure [Le ft Arm] 125/79 Blood Pressure 88/54 Pulse Oximetry 99 Oxygen Delivery Me thod Room Air Oxygen Flow Rate 4 Fraction of Inspir ed Oxygen 21 Hydration adequate: Yes Nausea and vomiting: No Pain level: 1 Mental status: Baseline
--- NOTE | 2024-09-20 14:11 | PC.NURSE ---
pt is back from OR pt is alert,orientedx4.want some water and something to eat. wound vac intact.
[2024-09-20 14:32] LABS: Glucose Point of Care 214 mg/dL (70-110)
[2024-09-20] MEDS: clopidogrel 75 mg Tablet PO (14:44)
[2024-09-20] MEDS: duloxetine 20 mg Capsule PO ×2 (14:44→17:01)
[2024-09-20] MEDS: aspirin 81 mg EC Tablet PO (14:44)
[2024-09-20] MEDS: potassium chloride ER 20 mEq Tablet PO ×2 (14:45→17:01)
[2024-09-20] MEDS: metoprolol succinate ER (24 HR) 25 mg Tablet PO (14:45)
[2024-09-20] MEDS: pantoprazole DR 40 mg Tablet PO (14:45)
[2024-09-20] MEDS: tamsulosin 0.4 mg Capsule PO (14:45)
[2024-09-20] MEDS: nicotine 14 mg Patch 1 PATCH TRANSDERMA (14:45)
--- NOTE | 2024-09-20 14:52 | P.PN_ITS ---
Subjective 2 Subjective: Patient was seen this morning, he is awaiting surgical intervention this morning, no acute events overnight, no fevers, chills, no cough Vitals/I&O/Wt Last Vital Signs Temp 97.9 F 09/20/24 14:11 Pulse 102 H 09/20/24 14:11 Resp 19 H 09/20/24 14:11 BP 122/68 09/20/24 14:11 Pulse Ox 98 09/20/24 14:11 O2 Del Method Room Air 09/20/24 14:11 O2 Flow Rate 4 09/15/24 16:00 FiO2 21 09/03/24 08:17 09/19/24 09/20/24 09/20/24 22:59 06:59 14:59 Intake Total 930 / 1860 350 / 2210 50 / 50 Output Total 2250 / 3650 1375 / 5025 Balance -1320 / -1790 -1025 / -2815 Weight last 48 hrs Weight 89.448 kg Weight 91.626 kg Physical Exam 2 Const: COMMON NORMALS: no acute distress and patient oriented x3 Resp: COMMON NORMALS: normal respiratory effort, No retractions, No use of accessory muscles and clear to auscultation bilaterally AUSCULTATION: clear to auscultation bilaterally Cardio: COMMON NORMALS: regular rate, regular rhythm, S1 normal heart sound present and S2 normal heart sound present RATE: regular rate RHYTHM: r egular rhythm HEART SOUNDS: S1 normal heart sound present and S2 normal heart sound present GI: COMMON NORMALS: Normal to inspection, nondistended, normoactive bowel sounds present and non-tender Extremity: COMMON NORMALS: no pedal edema Neuro: COMMON NORMALS: patient oriented x3 Psych: COMMON NORMALS: mental status grossly normal Urinary Catheter Management: Burciaga: Cath Placed During This Visit: yes Reason for Continuing Indwelling Catheter: Accurate Measurement of Urinary Output in Critically Ill Patients Urinary Catheter Date of Insertion: 08/31/24 Urinary Catheter Time of Insertion: 19:00 Data 09/20/24 04:35 09/20/24 04:35 A&P Assessment and plan (1) Ischemic cardiomyopathy: Plan #Acute on chronic congestive systolic heart failure exacerbation #Diabetes mellitus, insulin-dependent #Cellulitis right lower extremity #Acute limb ischemia?ruled out. #Peripheral arterial disease #Dyslipidemia, hypertension #Peripheral neuropathy #GERD #Coronary artery disease status post PCI #History of STEMI, NSTEMI Right lower extremity wound, with right lower extremity limb ischemia status post Excision and debridement to the level of the fascia of an area measuring 40 x 15 x 1 cm, wound VAC placement Plan ? Plan on surgical intervention today ? Continue IV antibiotics -continue wound VAC, continue to monitor Continue on aspirin and Plavix. Right lower extremity limb ischemia, peripheral arterial disease -Percutaneous lithotripsy followed by balloon angioplasty followed by mid SFA stent postdilated with balloon. Excellent angiographic result with good flow was restored in the SFA all the way to the foot with two-vessel runoff. -On aspirin, Plavix Hyponatremia: Monitor Diabetes: A1c reviewed, 7.2. Reviewed POC glucose. Possible pseudomonal pneumonia: -Concern for increased sputum production -Continue IV Zosyn Heart failure exacerbation: Euvolemic -Soft blood pressures - Had to hold Entresto, Imdur for now -Metoprolol continued for now Atrial fibrillation: -Continue metoprolol -Likely Eliquis therapy to be added after surgical debridements have completed Thrombocytopenia: Again moderate thrombocytopenia, platelets 119 UTI: Reviewed urine culture, noted E. coli growing. Continue Zosyn. Possible psoriasis: follow-up with dermatology. N.p.o. midnight, for surgical debridement today 1 dose Lovenox Continue IV antibiotics Attestations 2 Medical Necessity Statement*: Patient requires hospitalization for right lower extremity wound, status post debridement will require another debridement today IV antibiotics Diagnoses Ischemic cardiomyopathy I25.5
[2024-09-20] MEDS: sacubitril/valsartan 24-26 mg Tablet 1 EACH PO (17:01)
[2024-09-20 17:33] LABS: Glucose Point of Care 131 mg/dL (70-110)
[2024-09-20 20:29] LABS: Glucose Point of Care 126 mg/dL (70-110)
[2024-09-21] VITALS (17 sets, daily range): BP systolic 85–133; BP diastolic 44–73; PULSE 69–113; RESP 16–26; TEMP 36.3–37.1; O2SAT 85–100
[2024-09-21] MEDS: HYDROmorphone 1 mg/mL INJ 1 mL IVP ×6 (00:34→20:36)
[2024-09-21] MEDS: linezolid premix 600 MG/300 ML PREMIX 300 MG IV ×2 (00:37→12:56)
[2024-09-21] MEDS: piperacillin-tazobactam 3.375 GM in sodium chloride 0.9% (plus) 50 ML IV ×3 (04:41→21:04)
[2024-09-21 06:33] LABS: Glucose Point of Care 120 mg/dL (70-110)
[2024-09-21 06:48] LABS: Basophils # 0.1 10^3/uL (0.0-0.1); Basophils % 1.9 %; Eosinophils # 0.2 10^3/uL (0.0-0.8); Eosinophils % 3.9 %; Hematocrit 29.8 % (37-53); Lymphocytes % 18.6 %; Mean Corpuscular HGB Conc 32.2 g/dL (30-55); Mean Corpuscular Volume 86.9 fl (82-101); Mean Platelet Volume 10.6 fL (7.4-10.4); Monocytes # 0.5 10^3/uL (0.2-0.9); Neutrophils # 3.51 10^3/uL (1.8-7.7); Nucleated Red Blood Cells % 0 %; Platelet Count 137 10^3/cmm (157-399); Red Blood Count 3.43 10^6/uL (3.85-5.65); Red Cell Distribution Width 18.5 % (12.1-15.1); White Blood Count 5.32 10^3/uL (3.29-11.43)
[2024-09-21 07:04] LABS: Alanine Aminotransferase 15 U/L (0-41); Albumin Level 3.4 g/dL (3.5-5.2); Alkaline Phosphatase 217 U/L (40-130); Anion Gap 15.5 (5-19); Aspartate Amino Transferase 12 U/L (0-40); Blood Urea Nitrogen 16 mg/dL (6-20); C Reactive Protein 31.4 mg/L (0.0-4.9); Calcium 8.8 mg/dL (8.5-10.5); Carbon Dioxide 27 mmol/L (22-29); Chloride 92 mmol/L (98-107); Creatinine Clr Calc Pharmacy 126.2674; Globulin 2.9 g/dL (1.3-4.6); Glomerular Filtration Rate 116.2 mL/min (90-130); Glucose 112 mg/dL (65-115); Osmolality Calculated 272 mOsm/kg (285-295); Potassium 4.5 mmol/L (3.5-5.1); Sodium 130 mmol/L (136-145); Total Protein 6.3 g/dL (6.6-8.7)
[2024-09-21 07:12] LABS: Procalcitonin 0.07 ng/mL (0-0.5)
[2024-09-21] MEDS: clopidogrel 75 mg Tablet PO (08:22)
[2024-09-21] MEDS: aspirin 81 mg EC Tablet PO (08:22)
[2024-09-21] MEDS: pantoprazole DR 40 mg Tablet PO (08:23)
[2024-09-21] MEDS: metoprolol succinate ER (24 HR) 25 mg Tablet PO (08:23)
[2024-09-21] MEDS: potassium chloride ER 20 mEq Tablet PO ×2 (08:23→17:18)
[2024-09-21] MEDS: sacubitril/valsartan 24-26 mg Tablet 1 EACH PO ×2 (08:23→17:18)
[2024-09-21] MEDS: duloxetine 20 mg Capsule PO ×2 (08:23→17:18)
[2024-09-21] MEDS: tamsulosin 0.4 mg Capsule PO (08:23)
[2024-09-21] MEDS: nicotine 14 mg Patch 1 PATCH TRANSDERMA (08:23)
--- NOTE | 2024-09-21 08:52 | PM.PN ---
Subjective Subjective: Patient is doing well. no chest pain. Vitals/I&O/Wt Last Vital Signs Temp 97.3 F L 09/21/24 08:00 Pulse 104 H 09/21/24 08:00 Resp 20 H 09/21/24 08:23 BP 133/62 09/21/24 08:00 Pulse Ox 98 09/21/24 08:23 O2 Del Method Room Air 09/21/24 08:00 O2 Flow Rate 4 09/15/24 16:00 FiO2 21 09/03/24 08:17 09/20/24 09/21/24 09/21/24 22:59 06:59 14:59 Intake Total 520 / 570 750 / 1320 Output Total 1250 / 1272 3200 / 4472 Balance -730 / -702 -2450 / -3152 Weight last 48 hrs Weight 204 lb Weight 197 lb 3.2 oz Physical Exam Narrative: GENERAL: Patient is alert, awake and oriented x3. HEART: Regular S1 and S2. No murmur, rub or gallop. LUNGS: Clear to auscultate bilaterally. CENTRAL NERVOUS SYSTEM: Grossly nonfocal. EXTREMITIES: Right leg has dressing applied. Urinary Catheter Management: Burciaga: Cath Placed During This Visit: yes Reason for Continuing Indwelling Catheter: Other Urinary Catheter Date of Insertion: 08/31/24 Urinary Catheter Time of Insertion: 19:00 Data 09/21/24 06:19 09/21/24 06:19 A&P Assessment and plan (1) Ischemic cardiomyopathy: (2) PAD (peripheral artery disease): (3) Lower extremity edema: Plan Patient continues to diurese well. We will continue with diuretics. Close I and Os. Monitor renal function. Thank you for involving us with care of this patient. We will continue to follow. Please call with questions. Attestations Medical Necessity Statement*: Care expected to cross 2 midnights. Coding Level of Care Code Acute Code for [facility] Diagnoses Ischemic cardiomyopathy I25.5 PAD (peripheral artery disease) I73.9 Lower extremity edema R60.0
[2024-09-21] MEDS: FUROsemide 40 mg Tablet PO ×2 (09:27→16:19)
--- NOTE | 2024-09-21 12:06 | PC.SOCIAL ---
IMM updated IMM dated and initialed, copy given to patient and copy placed in chart.
[2024-09-21 12:34] LABS: Glucose Point of Care 172 mg/dL (70-110)
[2024-09-21] MEDS: insulin lispro 100 unit/1 mL SUBCUT ×2 (12:55→17:56)
--- NOTE | 2024-09-21 15:20 | P.PN_ITS ---
Subjective 2 Subjective: Patient was seen this morning, he is alert oriented x 3, following all commands, no fevers overnight, no chills overnight Vitals/I&O/Wt Last Vital Signs Temp 97.4 F L 09/21/24 12:00 Pulse 105 H 09/21/24 12:00 Resp 20 H 09/21/24 12:00 BP 114/58 09/21/24 12:00 Pulse Ox 95 09/21/24 12:00 O2 Del Method Room Air 09/21/24 12:00 O2 Flow Rate 4 09/15/24 16:00 FiO2 21 09/03/24 08:17 09/21/24 09/21/24 09/21/24 06:59 14:59 22:59 Intake Total 750 / 1320 1684 / 1684 Output Total 3200 / 4472 1100 / 1100 Balance -2450 / -3152 584 / 584 Weight last 48 hrs Weight 92.533 kg Weight 89.448 kg Physical Exam 2 Const: COMMON NORMALS: no acute distress and patient oriented x3 Resp: COMMON NORMALS: normal respiratory effort, No retractions, No use of accessory muscles and clear to auscultation bilaterally AUSCULTATION: clear to auscultation bilaterally Cardio: COMMON NORMALS: regular rate, regular rhythm, S1 normal heart sound present and S2 normal heart sound present RATE: regular rate RHYTHM: r egular rhythm HEART SOUNDS: S1 normal heart sound present and S2 normal heart sound present GI: COMMON NORMALS: Normal to inspection, nondistended, normoactive bowel sounds present and non-tender Extremity: COMMON NORMALS: no calf tenderness and no pedal edema Neuro: COMMON NORMALS: patient oriented x3 Psych: COMMON NORMALS: mental status grossly normal Skin: NARRATIVE SKIN EXAM: Surgical site, looks clean and dry with wound VAC in place, Urinary Catheter Management: Burciaga: Cath Placed During This Visit: yes Reason for Continuing Indwelling Catheter: Other Urinary Catheter Date of Insertion: 08/31/24 Urinary Catheter Time of Insertion: 19:00 Data 09/21/24 06:19 09/21/24 06:19 A&P Assessment and plan (1) Ischemic cardiomyopathy: Plan #Acute on chronic congestive systolic heart failure exacerbation #Diabetes mellitus, insulin-dependent #Cellulitis right lower extremity #Acute limb ischemia?ruled out. #Peripheral arterial disease #Dyslipidemia, hypertension #Peripheral neuropathy #GERD #Coronary artery disease status post PCI #History of STEMI, NSTEMI Right lower extremity wound, with right lower extremity limb ischemia status post Excision and debridement to the level of the fascia of an area measuring 40 x 15 x 1 cm, wound VAC placement Sharp excisional debridement to the level of the fascia on the right leg of an area measuring 40 x 15 x 1 cm, wound VAC placement Plan ? Continue IV antibiotics -continue wound VAC, continue to monitor Continue on aspirin and Plavix. Right lower extremity limb ischemia, peripheral arterial disease -Percutaneous lithotripsy followed by balloon angioplasty followed by mid SFA stent postdilated with balloon. Excellent angiographic result with good flow was restored in the SFA all the way to the foot with two-vessel runoff. -On aspirin, Plavix Hyponatremia: Monitor Diabetes: A1c reviewed, 7.2. Reviewed POC glucose. Possible pseudomonal pneumonia: -Concern for increased sputum production -Continue IV Zosyn Heart failure exacerbation: Euvolemic -Soft blood pressures - Had to hold Entresto, Imdur for now -Metoprolol continued for now Atrial fibrillation: -Continue metoprolol -Resume Eliquis today Thrombocytopenia: Again moderate thrombocytopenia, platelets 119 UTI: Reviewed urine culture, noted E. coli growing. Continue Zosyn. Possible psoriasis: follow-up with dermatology. Cardiac diet # Continue DVT prophylaxis, Eliquis For today continue IV antibiotics, switch to Eliquis, continue monitoring wound Attestations 2 Medical Necessity Statement*: Patient requires hospitalization for right lower extremity wound requiring IV antibiotics, Diagnoses Ischemic cardiomyopathy I25.5
--- NOTE | 2024-09-21 16:00 | P.PN_ITS ---
Subjective 2 Subjective: Patient seen and examined. He denies any pain or other complaints Vitals/I&O/Wt Last Vital Signs Temp 98.2 F 09/22/24 11:25 Pulse 83 09/22/24 11:25 Resp 22 H 09/22/24 12:47 BP 88/54 09/22/24 11:25 Pulse Ox 99 09/22/24 11:25 O2 Del Method Room Air 09/22/24 11:25 O2 Flow Rate 4 09/15/24 16:00 FiO2 21 09/03/24 08:17 09/21/24 09/22/24 09/22/24 22:59 06:59 14:59 Intake Total 590 / 2274 550 / 2824 650 / 650 Output Total 750 / 1850 1800 / 3650 650 / 650 Balance -160 / 424 -1250 / -826 0 / 0 Weight last 48 hrs Weight 205 lb 12.8 oz Weight 204 lb Physical Exam 2 Narrative: General: No acute distress, awake alert notes x 3 Skin: Wound VAC in place on right leg without air leak. No erythema or exudate Urinary Catheter Management: Burciaga: Cath Placed During This Visit: yes Reason for Continuing Indwelling Catheter: Accurate Measurement of Urinary Output in Critically Ill Patients Urinary Catheter Date of Insertion: 08/31/24 Urinary Catheter Time of Insertion: 19:00 Data 09/22/24 04:10 09/22/24 04:10 A&P Assessment and plan (1) Arterial embolism and thrombosis of lower extremity: (2) Critical limb ischemia of right lower extremity: (3) PAD (peripheral artery disease): Plan Status post sharp excisional debridement right lower extremity and wound VAC placement He will need the wound VAC changed again on Thursday if he is here. Otherwise it can be changed as an outpatient Attestations 2 Medical Necessity Statement*: Per primary Coding Level of Care Code 66430 Diagnoses Arterial embolism and thrombosis of lower extremity I74.3 Critical limb ischemia of right lower extremity I70.221 PAD (peripheral artery disease) I73.9
[2024-09-21 17:27] LABS: Glucose Point of Care 147 mg/dL (70-110)
[2024-09-21] MEDS: HYDROcodone-acetaminophen 5-325 mg Tablet 1 TAB PO ×2 (17:55→22:31)
[2024-09-21] MEDS: apixaban 5 mg Tablet PO (20:36)
[2024-09-21 21:03] LABS: Glucose Point of Care 108 mg/dL (70-110)
[2024-09-22] VITALS (14 sets, daily range): BP systolic 88–106; BP diastolic 54–66; PULSE 72–101; RESP 12–24; TEMP 36.7–37.2; O2SAT 97–100
[2024-09-22] MEDS: linezolid premix 600 MG/300 ML PREMIX 300 MG IV (00:35)
[2024-09-22] MEDS: HYDROmorphone 1 mg/mL INJ 1 mL IVP ×3 (00:43→08:14)
[2024-09-22] MEDS: HYDROcodone-acetaminophen 5-325 mg Tablet 1 TAB PO ×3 (02:40→10:58)
[2024-09-22] MEDS: piperacillin-tazobactam 3.375 GM in sodium chloride 0.9% (plus) 50 ML IV (04:44)
[2024-09-22 04:55] LABS: Basophils # 0.1 10^3/uL (0.0-0.1); Basophils % 1.4 %; Eosinophils # 0.3 10^3/uL (0.0-0.8); Eosinophils % 4.3 %; Hematocrit 29.4 % (37-53); Lymphocytes # 1.5 10^3/uL (0.8-4.8); Lymphocytes % 24.9 %; Mean Corpuscular HGB Conc 31.3 g/dL (30-55); Mean Corpuscular Hemoglobin 27.7 pg (27-33); Mean Corpuscular Volume 88.6 fl (82-101); Mean Platelet Volume 11.1 fL (7.4-10.4); Monocytes # 0.6 10^3/uL (0.2-0.9); Monocytes % 10.6 %; Neutrophils # 3.38 10^3/uL (1.8-7.7); Neutrophils % 57.9 %; Nucleated Red Blood Cells % 0 %; Platelet Count 130 10^3/cmm (157-399); Red Blood Count 3.32 10^6/uL (3.85-5.65); Red Cell Distribution Width 18.4 % (12.1-15.1); White Blood Count 5.83 10^3/uL (3.29-11.43)
[2024-09-22 05:24] LABS: Procalcitonin 0.06 ng/mL (0-0.5)
[2024-09-22 05:25] LABS: Alanine Aminotransferase 15 U/L (0-41); Albumin Level 3.1 g/dL (3.5-5.2); Alkaline Phosphatase 219 U/L (40-130); Anion Gap 14.9 (5-19); Aspartate Amino Transferase 13 U/L (0-40); Blood Urea Nitrogen 20 mg/dL (6-20); C Reactive Protein 24.1 mg/L (0.0-4.9); Calcium 8.6 mg/dL (8.5-10.5); Carbon Dioxide 27 mmol/L (22-29); Chloride 91 mmol/L (98-107); Creatinine Clr Calc Pharmacy 126.8049; Globulin 3.1 g/dL (1.3-4.6); Glomerular Filtration Rate 116.2 mL/min (90-130); Glucose 100 mg/dL (65-115); Osmolality Calculated 269 mOsm/kg (285-295); Potassium 4.9 mmol/L (3.5-5.1); Sodium 128 mmol/L (136-145); Total Bilirubin 0.7 mg/dL (0.15-1.2); Total Protein 6.2 g/dL (6.6-8.7)
[2024-09-22 06:23] LABS: Glucose Point of Care 131 mg/dL (70-110)
[2024-09-22] MEDS: isosorbide mononitrate ER 60 mg Tablet 30 MG PO (08:14)
[2024-09-22] MEDS: ranolazine (12HR) 500 mg Tablet PO ×2 (08:14→16:31)
[2024-09-22] MEDS: sacubitril/valsartan 24-26 mg Tablet 1 EACH PO ×2 (08:14→16:32)
[2024-09-22] MEDS: clopidogrel 75 mg Tablet PO (08:14)
[2024-09-22] MEDS: metoprolol succinate ER (24 HR) 25 mg Tablet PO (08:14)
[2024-09-22] MEDS: potassium chloride ER 20 mEq Tablet PO ×2 (08:14→16:32)
[2024-09-22] MEDS: pantoprazole DR 40 mg Tablet PO (08:14)
[2024-09-22] MEDS: duloxetine 20 mg Capsule PO ×2 (08:14→16:31)
[2024-09-22] MEDS: tamsulosin 0.4 mg Capsule PO (08:15)
[2024-09-22] MEDS: nicotine 14 mg Patch 1 PATCH TRANSDERMA (08:15)
[2024-09-22] MEDS: apixaban 5 mg Tablet PO ×2 (09:08→20:29)
[2024-09-22] MEDS: amoxicillin-clav 875-125 mg Tablet 1 TAB PO ×2 (09:08→16:31)
[2024-09-22] MEDS: doxycycline 100 mg Tablet PO ×2 (09:08→16:32)
[2024-09-22 11:30] LABS: Glucose Point of Care 111 mg/dL (70-110)
--- NOTE | 2024-09-22 12:21 | P.PN_ITS ---
Subjective 2 Subjective: Patient seen and examined. Pain controlled. No complaints Vitals/I&O/Wt Last Vital Signs Temp 97.5 F L 09/23/24 10:02 Pulse 86 09/23/24 10:02 Resp 18 09/23/24 10:02 BP 105/64 09/23/24 10:02 Pulse Ox 96 09/23/24 10:02 O2 Del Method Room Air 09/23/24 10:02 O2 Flow Rate 4 09/15/24 16:00 FiO2 21 09/03/24 08:17 09/22/24 09/23/24 09/23/24 22:59 06:59 14:59 Intake Total 340 / 990 400 / 1390 Output Total 1500 / 2150 900 / 3050 Balance -1160 / -1160 -500 / -1660 Weight last 48 hrs Weight 205 lb 6.4 oz Weight 205 lb 6.4 oz Weight 205 lb 12.8 oz Physical Exam 2 Narrative: General: No acute distress, awake alert notes x 3 Skin: Wound VAC in place on right leg without air leak. No erythema or exudate Urinary Catheter Management: Burciaga: Cath Placed During This Visit: yes Reason for Continuing Indwelling Catheter: Accurate Measurement of Urinary Output in Critically Ill Patients Urinary Catheter Date of Insertion: 08/31/24 Urinary Catheter Time of Insertion: 19:00 Data 09/23/24 05:42 09/23/24 05:42 A&P Assessment and plan (1) Arterial embolism and thrombosis of lower extremity: (2) Critical limb ischemia of right lower extremity: (3) PAD (peripheral artery disease): Plan Status post sharp excisional debridement right lower extremity and wound VAC placement Or tomorrow for wound VAC change N.p.o. after midnight Medical management per hospitalist Attestations 2 Medical Necessity Statement*: Per primary Coding Level of Care Code 38035 Diagnoses Arterial embolism and thrombosis of lower extremity I74.3 Critical limb ischemia of right lower extremity I70.221 PAD (peripheral artery disease) I73.9
[2024-09-22] MEDS: morphine IR 15 mg Tablet PO ×3 (12:47→20:15)
[2024-09-22] MEDS: gabapentin 300 mg Capsule PO (14:07)
[2024-09-22 16:30] LABS: Glucose Point of Care 134 mg/dL (70-110)
--- NOTE | 2024-09-22 17:18 | P.PN_ITS ---
Subjective 2 Subjective: Patient was seen this morning, discussed his acute on chronic hyponatremia, will monitor his serum sodiums hold diuresis for today Vitals/I&O/Wt Last Vital Signs Temp 98.2 F 09/22/24 16:00 Pulse 72 09/22/24 16:00 Resp 24 H 09/22/24 16:32 BP 98/64 09/22/24 16:00 Pulse Ox 99 09/22/24 16:00 O2 Del Method Room Air 09/22/24 16:00 O2 Flow Rate 4 09/15/24 16:00 FiO2 21 09/03/24 08:17 09/22/24 09/22/24 09/22/24 06:59 14:59 22:59 Intake Total 550 / 2824 650 / 650 Output Total 1800 / 3650 650 / 650 950 / 1600 Balance -1250 / -826 0 / 0 -950 / -950 Weight last 48 hrs Weight 93.349 kg Weight 92.533 kg Physical Exam 2 Const: COMMON NORMALS: no acute distress and patient oriented x3 Resp: COMMON NORMALS: normal respiratory effort, No retractions, No use of accessory muscles and clear to auscultation bilaterally AUSCULTATION: clear to auscultation bilaterally Cardio: COMMON NORMALS: regular rate, regular rhythm, S1 normal heart sound present and S2 normal heart sound present RATE: regular rate RHYTHM: r egular rhythm HEART SOUNDS: S1 normal heart sound present and S2 normal heart sound present GI: COMMON NORMALS: Normal to inspection, nondistended, normoactive bowel sounds present and non-tender Extremity: COMMON NORMALS: no pedal edema NARRATIVE EXTREMITY EXAM: Surgical site, right leg, clean and dry Neuro: COMMON NORMALS: patient oriented x3 Psych: COMMON NORMALS: mental status grossly normal Urinary Catheter Management: Burciaga: Cath Placed During This Visit: yes Reason for Continuing Indwelling Catheter: Accurate Measurement of Urinary Output in Critically Ill Patients Urinary Catheter Date of Insertion: 08/31/24 Urinary Catheter Time of Insertion: 19:00 Data 09/23/24 05:42 09/23/24 05:42 A&P Assessment and plan (1) Ischemic cardiomyopathy: Plan #Acute on chronic congestive systolic heart failure exacerbation #Diabetes mellitus, insulin-dependent #Cellulitis right lower extremity #Acute limb ischemia?ruled out. #Peripheral arterial disease #Dyslipidemia, hypertension #Peripheral neuropathy #GERD #Coronary artery disease status post PCI #History of STEMI, NSTEMI Right lower extremity wound, with right lower extremity limb ischemia status post Excision and debridement to the level of the fascia of an area measuring 40 x 15 x 1 cm, wound VAC placement Sharp excisional debridement to the level of the fascia on the right leg of an area measuring 40 x 15 x 1 cm, wound VAC placement Plan ? Continue IV antibiotics -continue wound VAC, continue to monitor Continue on aspirin and Plavix. Right lower extremity limb ischemia, peripheral arterial disease -Percutaneous lithotripsy followed by balloon angioplasty followed by mid SFA stent postdilated with balloon. Excellent angiographic result with good flow was restored in the SFA all the way to the foot with two-vessel runoff. -On aspirin, Plavix Hyponatremia: Monitor Diabetes: A1c reviewed, 7.2. Reviewed POC glucose. Possible pseudomonal pneumonia: -Concern for increased sputum production -Continue IV Zosyn Heart failure exacerbation: Euvolemic -Soft blood pressures - Had to hold Entresto, Imdur for now -Metoprolol continued for now Atrial fibrillation: -Continue metoprolol -Resume Eliquis today Thrombocytopenia: Again moderate thrombocytopenia, platelets 119 UTI: Reviewed urine culture, noted E. coli growing. Continue Zosyn. Possible psoriasis: follow-up with dermatology. Acute on chronic hyponatremia, will hold diuresis, serum sodium fluctuates between 1 25-1 32, is diuresing quite well we will monitor, Cardiac diet # Continue DVT prophylaxis, Eliquis For today continue IV antibiotics, switch to Eliquis, continue monitoring wound Attestations 2 Medical Necessity Statement*: Patient requires hospitalization for right lower extremity wound, requiring wound VAC change, cellulitis, hyponatremia Diagnoses Ischemic cardiomyopathy I25.5
[2024-09-22 20:58] LABS: Glucose Point of Care 155 mg/dL (70-110)
[2024-09-22] MEDS: insulin lispro 100 unit/1 mL SUBCUT (21:04)
[2024-09-23] VITALS (17 sets, daily range): BP systolic 91–116; BP diastolic 48–71; PULSE 82–102; RESP 16–21; TEMP 36.1–36.6; O2SAT 96–100
[2024-09-23] MEDS: gabapentin 300 mg Capsule PO (01:37)
[2024-09-23] MEDS: morphine IR 15 mg Tablet PO (06:22)
[2024-09-23 06:32] LABS: Glucose Point of Care 127 mg/dL (70-110)
[2024-09-23 06:50] LABS: Basophils # 0.1 10^3/uL (0.0-0.1); Basophils % 0.8 %; Eosinophils # 0.2 10^3/uL (0.0-0.8); Eosinophils % 2.8 %; Hematocrit 28.5 % (37-53); Lymphocytes # 1.2 10^3/uL (0.8-4.8); Lymphocytes % 16.2 %; Mean Corpuscular HGB Conc 31.2 g/dL (30-55); Mean Corpuscular Hemoglobin 27.2 pg (27-33); Mean Corpuscular Volume 87.2 fl (82-101); Mean Platelet Volume 10.6 fL (7.4-10.4); Monocytes # 0.5 10^3/uL (0.2-0.9); Monocytes % 6.6 %; Neutrophils # 5.22 10^3/uL (1.8-7.7); Neutrophils % 73.2 %; Nucleated Red Blood Cells % 0.3 %; Platelet Count 159 10^3/cmm (157-399); Red Blood Count 3.27 10^6/uL (3.85-5.65); Red Cell Distribution Width 18.4 % (12.1-15.1); White Blood Count 7.14 10^3/uL (3.29-11.43)
[2024-09-23 07:17] LABS: Alanine Aminotransferase 15 U/L (0-41); Albumin Level 3.3 g/dL (3.5-5.2); Alkaline Phosphatase 225 U/L (40-130); Anion Gap 14.7 (5-19); Aspartate Amino Transferase 13 U/L (0-40); Blood Urea Nitrogen 23 mg/dL (6-20); C Reactive Protein 23.3 mg/L (0.0-4.9); Calcium 8.9 mg/dL (8.5-10.5); Carbon Dioxide 25 mmol/L (22-29); Chloride 92 mmol/L (98-107); Creatinine Clr Calc Pharmacy 126.6857; Glomerular Filtration Rate 116.2 mL/min (90-130); Glucose 114 mg/dL (65-115); Osmolality Calculated 269 mOsm/kg (285-295); Phosphorus 3.1 mg/dL (2.5-4.5); Potassium 4.7 mmol/L (3.5-5.1); Sodium 127 mmol/L (136-145); Total Bilirubin 0.8 mg/dL (0.15-1.2); Total Protein 6.3 g/dL (6.6-8.7)
[2024-09-23 07:25] LABS: NT Pro B Type Natriuretic Pept 2450 pg/mL (0-125); Procalcitonin 0.06 ng/mL (0-0.5)
--- NOTE | 2024-09-23 08:37 | P.PN_ITS ---
Vitals/I&O/Wt Last Vital Signs Temp 97.8 F 09/23/24 07:46 Pulse 86 09/23/24 07:46 Resp 17 09/23/24 07:46 BP 110/71 09/23/24 07:46 Pulse Ox 99 09/23/24 07:46 O2 Del Method Room Air 09/23/24 07:46 O2 Flow Rate 4 09/15/24 16:00 FiO2 21 09/03/24 08:17 09/22/24 09/23/24 09/23/24 22:59 06:59 14:59 Intake Total 340 / 990 400 / 1390 Output Total 1500 / 2150 900 / 3050 Balance -1160 / -1160 -500 / -1660 Weight last 48 hrs Weight 205 lb 6.4 oz Weight 205 lb 6.4 oz Weight 205 lb 12.8 oz Physical Exam 2 Urinary Catheter Management: Burciaga: Cath Placed During This Visit: yes Reason for Continuing Indwelling Catheter: Accurate Measurement of Urinary Output in Critically Ill Patients Urinary Catheter Date of Insertion: 08/31/24 Urinary Catheter Time of Insertion: 19:00 Data 09/23/24 05:42 09/23/24 05:42 Coding Level of Care Code Acute Code for Chg Fwd
[2024-09-23] MEDS: ranolazine (12HR) 500 mg Tablet PO (08:50)
[2024-09-23] MEDS: amoxicillin-clav 875-125 mg Tablet 1 TAB PO (08:50)
[2024-09-23] MEDS: doxycycline 100 mg Tablet PO (08:50)
[2024-09-23] MEDS: duloxetine 20 mg Capsule PO (08:50)
[2024-09-23] MEDS: FUROsemide 40 mg Tablet PO (08:50)
[2024-09-23] MEDS: potassium chloride ER 20 mEq Tablet PO (08:51)
[2024-09-23] MEDS: tamsulosin 0.4 mg Capsule PO (08:52)
[2024-09-23] MEDS: pantoprazole DR 40 mg Tablet PO (08:52)
[2024-09-23] MEDS: nicotine 14 mg Patch 1 PATCH TRANSDERMA (08:53)
--- NOTE | 2024-09-23 09:44 | PC.NURSE ---
Surgery: Surgery team took pt to OR
[2024-09-23 10:12] LABS: Glucose Point of Care 108 mg/dL (70-110)
--- NOTE | 2024-09-23 10:20 | P.PN_ITS ---
Vitals/I&O/Wt Last Vital Signs Temp 97.5 F L 09/23/24 10:02 Pulse 86 09/23/24 10:02 Resp 18 09/23/24 10:02 BP 105/64 09/23/24 10:02 Pulse Ox 96 09/23/24 10:02 O2 Del Method Room Air 09/23/24 10:02 O2 Flow Rate 4 09/15/24 16:00 FiO2 21 09/03/24 08:17 09/22/24 09/23/24 09/23/24 22:59 06:59 14:59 Intake Total 340 / 990 400 / 1390 Output Total 1500 / 2150 900 / 3050 Balance -1160 / -1160 -500 / -1660 Weight last 48 hrs Weight 205 lb 6.4 oz Weight 205 lb 6.4 oz Weight 205 lb 12.8 oz Physical Exam 2 Urinary Catheter Management: Burciaga: Cath Placed During This Visit: yes Reason for Continuing Indwelling Catheter: Accurate Measurement of Urinary Output in Critically Ill Patients Urinary Catheter Date of Insertion: 08/31/24 Urinary Catheter Time of Insertion: 19:00 Data 09/23/24 05:42 09/23/24 05:42 A&P Assessment and plan (1) Arterial embolism and thrombosis of lower extremity: (2) Critical limb ischemia of right lower extremity: (3) PAD (peripheral artery disease): Plan Wound VAC change right lower extremity The risks and benefits of the procedure, including but limited to, bleeding, infection, scar, numbness, pain, further tissue loss, need for further procedures including possibly an amputation, were explained the patient. He is understanding the risks and wishes to proceed Attestations 2 Medical Necessity Statement*: per primary Coding Level of Care Code Acute Code for [facility] Fwd Diagnoses Arterial embolism and thrombosis of lower extremity I74.3 Critical limb ischemia of right lower extremity I70.221 PAD (peripheral artery disease) I73.9
--- NOTE | 2024-09-23 10:47 | PM.DCS ---
Discharge Providers Date of Admission: 08/31/24 18:38 Date of Discharge: September 23, 2024 Attending Provider at Admission: Jazmin Coreas MD Attending Provider at Discharge: Mg Aguilera MD Primary Care Provider: Yusuf Rivera DO Diagnoses at Discharge Discharge Diagnosis (1) Ischemic cardiomyopathy: Status: Acute Reason for Visit Reason for Visit: Leg Pain Hospital Course Hospital Course This is a 59-year-old male with a past medical history of type 2 diabetes mellitus, insulin-dependent, CHF, COPD, who presents to [facility] due to shortness of breath, cellulitis right lower extremity, peripheral arterial disease Patient required prolonged hospitalization, please look at my last progress for further detail Patient presented to [facility] for acute CHF exacerbation, required IV diuresis during hospitalization, cardiology consulted. On discharge patient be discharged on Lasix 40 mg daily with potassium replacement therapy, with close follow-up with cardiology as outpatient For right lower extremity wound, right lower extremity limb ischemia, required percutaneous lithotripsy followed by balloon angioplasty followed by mid SFA stent. Subsequently required debridement of right lower extremity twice with wound VAC placement. Will be discharged on p.o. antibiotics, wound care, wound VAC in place with follow-up with general surgery as outpatient, follow-up with wound care as outpatient. For Pseudomonas pneumonia, completed IV antibiotics as inpatient For atrial fibrillation, discharged on metoprolol, Eliquis For acute on chronic thrombocytopenia, medically managed For acute on chronic hyponatremia, serum sodium fluctuates between 1 25-1 32, continue to monitor as outpatient. Repeat sodium tomorrow, sodium on discharge 127 patient is relatively asymptomatic. Some component of patient's hyponatremia might be from diuresis, decrease his Lasix to 40 mg daily UTI completed IV antibiotics as inpatient Intractable pain, right lower extremity, discharged on gabapentin 300 mg twice daily. Patient has a high pain tolerance as he takes hydrocodone 10-325 every 4 hours as needed at home. Patient does not tolerate oxycodone due to nausea vomiting. Will discharge him on oral morphine 15 mg p.o. every 6 hours as needed. For acute on chronic anemia, patient was discharged on Eliquis as above, in addition to Plavix due to history of CAD, atrial fibrillation, peripheral vascular disease. Hemoglobin discharge 8.9, no bloody black stools will discharge on Protonix, Carafate, follow-up with general surgery as outpatient, consider EGD in 2 to 4 weeks Physical Exam Const: COMMON NORMALS: no acute distress and patient oriented x3 Resp: COMMON NORMALS: normal respiratory effort, No retractions, No use of accessory muscles and clear to auscultation bilaterally AUSCULTATION: clear to auscultation bilaterally Cardio: COMMON NORMALS: regular rate, regular rhythm, S1 normal heart sound present and S2 normal heart sound present RATE: regular rate RHYTHM: regular rhythm HEART SOUNDS: S1 normal heart sound present and S2 normal heart sound present GI: COMMON NORMALS: Normal to inspection, nondistended, normoactive bowel sounds present and non-tender Extremity: COMMON NORMALS: no pedal edema NARRATIVE EXTREMITY EXAM: Right knee wound, with wound VAC in place, looks clean and dry Neuro: COMMON NORMALS: patient oriented x3 Psych: COMMON NORMALS: mental status grossly normal Urinary Catheter Management: Burciaga: Cath Placed During This Visit: yes Reason for Continuing Indwelling Catheter: Accurate Measurement of Urinary Output in Critically Ill Patients Urinary Catheter Date of Insertion: 08/31/24 Urinary Catheter Time of Insertion: 19:00 Discharge Data Studies Completed and Pending Completed Studies During Hospitalization Category Date Time Status CT angio abd aorta runof 90243 Urgent Cat Scan 09/01/24 08:[address] chest abdomen pelvis [[place] [id number] Cat Scan 09/01/24 08:11 Completed ] Urgent CT lower leg RT wo con* [id number] Urgent Cat Scan 09/01/24 08:11 Completed CXRP [XR chest 1V portable [id number]] Routine Exams 09/02/24 13:01 Completed XR chest 1V portable [id number] Routine Exams 09/05/24 11:43 Completed XR chest 1V portable [id number] Stat Exams 08/31/24 13:19 [place] [id number] Routine Ultrasound 09/09/24 19:42 Completed CV. echo complete* [id number] Urgent Ultrasound 09/01/24 08:15 Completed US arterial duplex lower extremity bilat [CV arterial Ultrasound 08/31/24 13:19 [place] [id number]] Stat US venous duplex lower extremity bilat [CV venous Ultrasound 08/31/24 16:26 [place] [id number]] Stat Pending at discharge Category Date Time Status [employer] request for service Routine Exams 09/14/24 07:00 Taken C Reactive Protein AM LABS Lab 09/24/24 04:00 Ordered C Reactive Protein AM LABS Lab 09/25/24 04:00 Ordered Complete Blood Count w/Auto AM LABS Lab 09/24/24 04:00 Ordered Complete Blood Count w/Auto AM LABS Lab 09/25/24 04:00 Ordered Comprehensive Metabolic Panel AM LABS Lab 09/24/24 04:00 Ordered Comprehensive Metabolic Panel AM LABS Lab 09/25/24 04:00 Ordered Magnesium AM LABS Lab 09/24/24 04:00 Ordered Magnesium AM LABS Lab 09/25/24 04:00 Ordered NT Pro B Type Natriuretic Pept QAM Lab 09/24/24 06:00 Ordered NT Pro B Type Natriuretic Pept QAM Lab 09/25/24 06:00 Ordered Phosphorus AM LABS Lab 09/24/24 04:00 Ordered Phosphorus AM LABS Lab 09/25/24 04:00 Ordered Procalcitonin AM LABS Lab 09/24/24 04:00 Ordered Procalcitonin AM LABS Lab 09/25/24 04:00 Ordered Pathology: Surgical [PTH] Routine Pth 09/16/24 14:50 Received Radiology Impressions Duplex Scan Lower Extremity Artery 08/31/24 13:19 IMPRESSION: 1. Abnormal arterial waveforms in both lower extremities suggesting hemodynamically significant stenoses without total occlusion. Correlation with CT angiography and vascular evaluation is recommended. Aorta w/Runoff CTA 09/01/24 08:11 IMPRESSION: 1. RIGHT superficial femoral artery is occluded at the origin. 2. Diminutive but patent iliac artery system and common femoral arteries bilaterally. 3. Poor runoff to the ankles bilaterally with dominance posterior tibial arteries. 4. Diffuse body wall anasarca. 5. Moderate irregular atheromatous disease distal abdominal aorta. Chest/Abdomen/Pelvis CT 09/01/24 08:11 IMPRESSION: 1. Small RIGHT greater than LEFT pleural effusion with compressive atelectasis in the lung bases. Shallow inspiration. 2. Mild pulmonary edema. 3. Diffuse body wall anasarca in the abdomen and pelvis with a small amount of perihepatic and perisplenic ascites. Small volume ascites in the pelvis. 4. Burciaga catheter. 5. Mild hepatomegaly. 6. No other acute findings. Lower Extremity CT 09/01/24 08:11 IMPRESSION: 1. Diffuse anasarca throughout the RIGHT lower extremity. 2. No drainable abscess or fluid collection. 3. No evidence of osteomyelitis Chest X-Ray 09/05/24 11:43 IMPRESSION: 1. Mild cardiac enlargement with increased pulmonary vascularity. Laboratory Results WBC 7.14 10^3/uL (3.29-11.43) 09/23/24 05:42 RBC 3.27 10^6/uL (3.85-5.65) L 09/23/24 05:42 Hgb 8.90 g/dL (11.27-16.99) L 09/23/24 05:42 Hct 28.5 % (37-53) L 09/23/24 05:42 MCV 87.2 fl (82-101) 09/23/24 05:42 MCH 27.2 pg (27-33) 09/23/24 05:42 MCHC 31.2 g/dL (30-55) 09/23/24 05:42 RDW 18.4 % (12.1-15.1) H 09/23/24 05:42 Plt Count 159 10^3/cmm (157-399) 09/23/24 05:42 MPV 10.6 fL (7.4-10.4) H 09/23/24 05:42 Neut % (Auto) 73.2 % 09/23/24 05:42 Lymph % (Auto) 16.2 % 09/23/24 05:42 [place] % (Auto) 6.6 % 09/23/24 05:42 Eos % (Auto) 2.8 % 09/23/24 05:42 Baso % (Auto) 0.8 % 09/23/24 05:42 Neut # (Auto) 5.22 10^3/uL (1.8-7.7) 09/23/24 05:42 Lymph # (Auto) 1.2 10^3/uL (0.8-4.8) 09/23/24 05:42 [place] # (Auto) 0.5 10^3/uL (0.2-0.9) 09/23/24 05:42 Eos # (Auto) 0.2 10^3/uL (0.0-0.8) 09/23/24 05:42 Baso # (Auto) 0.1 10^3/uL (0.0-0.1) 09/23/24 05:42 Nucleated RBC % (auto) 0.3 % 09/23/24 05:42 Total Counted 100 (0-100) 09/01/24 05:34 Atypical Lymphs % 0.0 % (0-5) 09/01/24 05:34 Absolute Neutrophils 12.3 10^3/cmm (1.4-6.5) H 09/01/24 05:34 Segmented Neutrophils 69 % 09/01/24 05:34 Band Neutrophils 22.0 % 09/01/24 05:34 Absolute Lymphocytes 1.1 10^3/cmm (1.2-3.4) L 09/01/24 05:34 Lymphocytes (Manual) 8 % 09/01/24 05:34 Monocytes (Manual) 1.0 % 09/01/24 05:34 Absolute Monocytes 0.1 10^3/cmm (0.1-0.6) 09/01/24 05:34 Eosinophils (Manual) 0 % 09/01/24 05:34 Absolute Eosinophils 0.0 10^3/cmm (0.0-0.7) 09/01/24 05:34 Basophils (Manual) 0.0 % 09/01/24 05:34 Absolute Basophils 0.0 10^3/cmm (0.0-0.2) 09/01/24 05:34 Nucleated RBCs # 0.0 /100WBC 09/23/24 05:42 Platelet Estimate Decreased (Normal) 09/01/24 05:34 Anisocytosis Trace 09/01/24 05:34 Heparin Require Pat 0.055 09/03/24 18:32 Heparin Require Pat 0.066 OD UNITS 09/03/24 18:32 PT 13.50 SECONDS (12.1-14.9) 09/14/24 04:01 INR 1.00 (0.8-1.2) 09/14/24 04:01 APTT 34.8 SECONDS (23.9-36.7) 09/14/24 12:14 Sodium 127 mmol/L (136-145) L 09/23/24 05:42 Potassium 4.7 mmol/L (3.5-5.1) 09/23/24 05:42 Chloride 92 mmol/L (98-107) L 09/23/24 05:42 Carbon Dioxide 25 mmol/L (22-29) 09/23/24 05:42 Anion Gap 14.7 (5-19) 09/23/24 05:42 BUN 23 mg/dL (6-20) H 09/23/24 05:42 Creatinine 0.7 mg/dL (0.7-1.2) 09/23/24 05:42 GFR Calculation 116.2 mL/min (90-130) 09/23/24 05:42 Glucose 114 mg/dL (65-115) 09/23/24 05:42 POC Glucose 108 mg/dL (70-110) 09/23/24 09:56 Estimat Average Glucose 160 08/31/24 13:30 Hemoglobin A1c 7.2 % (4.0-6.0) H 08/31/24 13:30 Serum Osmolality 275 mOsm/kg (278-305) L 09/02/24 05:51 Calculated Osmolality 269 mOsm/kg (285-295) L 09/23/24 05:42 Lactic Acid 2.6 mmol/L (0.5-2.2) H 09/03/24 02:33 Lactic Acid (Sepsis) 1.9 mmol/L (0.5-2.2) 09/03/24 05:52 Calcium 8.9 mg/dL (8.5-10.5) 09/23/24 05:42 Phosphorus 3.1 mg/dL (2.5-4.5) 09/23/24 05:42 Magnesium 2.0 mg/dL (1.7-2.3) 09/23/24 05:42 Total Bilirubin 0.8 mg/dL (0.15-1.2) 09/23/24 05:42 AST 13 U/L (0-40) 09/23/24 05:42 ALT 15 U/L (0-41) 09/23/24 05:42 Alkaline Phosphatase 225 U/L (40-130) H 09/23/24 05:42 Troponin T 5th Gen ng/L 185 ng/L (0-15) H* 09/02/24 05:51 Troponin T Baseline 178 ng/L (0-15) H* 09/02/24 12:31 Troponin T 120 Minute 159.0 ng/L (0-15) H 09/02/24 14:09 Delta Troponin T -19.0 ABS# (0-10) L 09/02/24 14:09 Troponin T Hi Sens 6Hr 157.8 ng/L (0-15) H 09/02/24 18:37 Troponin T Hi Sens 6Hr Delta -20.2 ng/L (0-12) L 09/02/24 18:37 C-Reactive Protein 23.3 mg/L (0.0-4.9) H 09/23/24 05:42 NT-Pro-B Natriuret Pep 2450 pg/mL (0-125) H 09/23/24 05:42 Total Protein 6.3 g/dL (6.6-8.7) L 09/23/24 05:42 Albumin 3.3 g/dL (3.5-5.2) L 09/23/24 05:42 Globulin 3.0 g/dL (1.3-4.6) 09/23/24 05:42 Procalcitonin 0.06 ng/mL (0-0.5) 09/23/24 05:42 Urine Color Yellow (Yellow) 09/11/24 21:56 Urine Appearance Clear (CLEAR) 09/11/24 21:56 Urine pH 8.0 (5-7) A 09/11/24 21:56 Ur Specific [place] 1.006 (1.005-1.030) 09/11/24 21:56 Urine Protein Negative (Negative) 09/11/24 21:56 Urine Glucose (UA) Negative (Normal) 09/11/24 21:56 Urine Ketones Negative (Negative) 09/11/24 21:56 Urine Blood 2+ (Negative) A 09/11/24 21:56 Urine Nitrate Negative (Negative) 09/11/24 21:56 Urine Bilirubin Negative (Negative) 09/11/24 21:56 Urine Urobilinogen 0.2 mg/dL (Negative) 09/11/24 21:56 Ur Leukocyte Esterase Negative (Negative) 09/11/24 21:56 Urine RBC 21-50 /hpf (0-2) H 09/11/24 21:56 Urine WBC 0-5 /hpf (0-5) 09/11/24 21:56 Ur Squamous Epith Cells 0-5 /hpf (0-5) 09/11/24 21:56 Amorphous Sediment Not Reportable 09/11/24 21:56 Urine Bacteria None seen /hpf (NONE) 09/11/24 21:56 Hyaline Casts 0.40 /lpf 09/11/24 21:56 Urine Osmolality 281 mOsm/kg (50-1200) 09/02/24 14:50 Ur Random Sodium 50 mmol/L 09/02/24 14:50 Vancomycin Trough 23.0 ug/mL (10-15) H 09/06/24 20:27 Random Vancomycin 53.4 ug/mL (20.0-40.0) H* 09/06/24 04:57 Heparin-induced Ab Negative (NEGATIVE) 09/03/24 18:32 Heparin-induced Plt Ab Negative (Negative) 09/03/24 18:32 UF Heparin Low Dose 1 10 % release 09/03/24 18:32 UF Heparin Low Dose 2 7 % release 09/03/24 18:32 UF Heparin High Dose 6 % release 09/03/24 18:32 DALTON Unfract Heparin Negative (NEGATIVE) 09/03/24 18:32 Vitals Last Vital Signs Temp 97.5 F L 09/23/24 10:02 Pulse 86 09/23/24 10:02 Resp 18 09/23/24 10:02 BP 105/64 09/23/24 10:02 Pulse Ox 96 09/23/24 10:02 O2 Del Method Room Air 09/23/24 10:02 O2 Flow Rate 4 09/15/24 16:00 FiO2 21 09/03/24 08:17 Discharge Plan Discharge Patient Disposition: Xfer SNF Condition: Stable Prescriptions: New insulin lispro [Humalog U-100 Insulin] 100 unit/mL Solution See Rx Instructions .ROUTE .COMPLEX Qty: 10 0RF Rx Instructions: Inject, subcut, 3 times daily, after meals, based on sliding scale provided amoxicillin-pot clavulanate 875-125 mg Tablet 1 tab PO BID 7 Days Qty: 14 0RF doxycycline monohydrate 100 mg Tablet 100 mg PO BID 7 Days Qty: 14 0RF gabapentin 300 mg Capsule 300 mg PO Q12H 30 Days Qty: 60 0RF sacubitril-valsartan [Entresto] 24-26 mg Tablet 1 tab PO DAILY 30 Days Qty: 30 0RF isosorbide mononitrate 30 mg Tablet Extended Release 24 Hr 15 mg PO DAILY 30 Days Qty: 30 0RF nicotine 14 mg/24 hr Patch 24 Hour 1 patch transdermal DAILY Qty: 28 0RF nitroglycerin 0.4 mg Tablet, Sublingual 0.4 mg sublingual Q5M PRN (Reason: Chest Pain) 30 Days Qty: 30 0RF Eliquis 5 mg Tablet 5 mg PO BID@0900,2100 30 Days Qty: 60 0RF Continued tamsulosin 0.4 mg capsule 0.4 mg PO DAILY fluticasone propionate 50 mcg/actuation spray,suspension 1 spray INTRANASAL DAILY lidocaine HCl 2 % solution 1 applic mucous membrane TID ibuprofen 200 mg capsule 200 mg PO Q6H PRN (Reason: Pain) clopidogrel 75 mg tablet 75 mg PO DAILY Qty: 90 3RF duloxetine 20 mg capsule,delayed release(DR/EC) 20 mg PO BID nitroglycerin 0.4 mg tablet, sublingual See Rx Instructions .ROUTE .COMPLEX Qty: 50 5RF Dose Instruction: place one tab UNDER THE TONGUE every five minutes NEEDED FOR CHEST pain * max THREE doses * Rx Instructions: place one tab UNDER THE TONGUE every five minutes NEEDED FOR CHEST pain * max THREE doses * Breztri Aerosphere 160-9-4.8 mcg/actuation HFA aerosol inhaler 2 inh inhalation BID Qty: 10.7 6RF potassium chloride 10 mEq tablet,ER particles/crystals 10 meq PO DAILY Qty: 90 3RF dapagliflozin propanediol [Farxiga] 10 mg tablet 10 mg PO DAILY Rx Instructions: TAKE 1 TABLET BY MOUTH EVERY DAY Changed furosemide 40 mg tablet 40 mg PO DAILY Qty: 180 3RF ranolazine 500 mg tablet extended release 12 hr 500 mg PO DAILY 30 Days Qty: 30 0RF Held Repatha SureClick 140 mg/mL pen injector 140 mg SUBCUT .q 2weeks Qty: 2 3RF Hold Instructions: Resume on 10/28/24. Discontinued isosorbide mononitrate 120 mg tablet extended release 24 hr 120 mg PO DAILY 90 Days Qty: 90 0RF spironolactone 50 mg tablet 50 mg PO DAILY cyclobenzaprine 10 mg tablet 10 mg PO BID Entresto 97-103 mg tablet 1 tab PO BID Qty: 180 3RF hydrocodone-acetaminophen 10-325 mg tablet 1 tab PO QID PRN (Reason: Pain) insulin degludec [Tresiba FlexTouch U-100] 100 unit/mL (3 mL) insulin pen See Rx Instructions .ROUTE .COMPLEX Qty: 90 0RF Dose Instruction: INJECT 70 UNITS EVERY MORNING AND 30 UNITS EVERY EVENING Rx Instructions: INJECT 70 UNITS EVERY MORNING AND 30 UNITS EVERY EVENING insulin aspart U-100 [Novolog FlexPen U-100 Insulin] 100 unit/mL (3 mL) insulin pen See Rx Instructions .ROUTE .COMPLEX Qty: 94.5 0RF Dose Instruction: INJECT 35 UNITS SUBCUTANEOUSLY THREE TIMES DAILY AND PER SLIDING SCALE Rx Instructions: INJECT 35 UNITS SUBCUTANEOUSLY THREE TIMES DAILY AND PER SLIDING SCALE aspirin 81 mg Tablet,Delayed Release (Dr/Ec) 81 mg PO DAILY Qty: 90 3RF carvedilol 25 mg tablet 25 mg PO BID Rx Instructions: TAKE 1 TABLET BY MOUTH TWICE DAILY No Action (DME) Diabetic shoes with 3 pairs of custom molded inserts See Rx Instructions .Route .MEDSUPPLY Qty: 1 0RF Rx Instructions: As directed HOME (DME) Dexcom G7 Sensor Device See Rx Instructions .Route Qty: 9 0RF Rx Instructions: As directed (DME) Dexcom G7 State Director Misc See Rx Instructions .Route Qty: 1 0RF Rx Instructions: As directed Discharge Orders: Discharge Order (Routine); Ordered 09/23/24 Ordered By: Mg Aguilera Other Ambulatory Orders: DME: Wound Vac (Order) Location: None Selected Ordered By: Bienvenido Mazariegos Referrals: [facility] [Outside] Sandhya Lopez FNP [Nurse Practitioner] - 10/10/24 2:00 pm Yusuf Rivera DO [Primary Care Provider] - 09/29/24 10:40 am [facility], [Staff Physician] - 1-3 days Discharge Diet: Cardiac Discharge Activity: Resume usual activity Patient Instructions: Heart Failure (DC), Peripheral Vascular Stent Placement (DC), Acute Wound Care (DC), Peripheral Vascular Angioplasty (DC), CHF Stoplight, Opioid Safety, Post Anesthesia Care Activity Restrictions/Additional Instructions: - Continue wound care at fdc facility, wound VAC -Follow-up with general surgery in 1 to 2 weeks -Follow up with wound care -Please recheck serum sodium levels tomorrow, sodium on discharge is 127 -Please use pain medication sparingly, -Please monitor mentation closely Discharge Attestations Time Spent in Discharge Care*: greater than 30 min Quality Metrics Clinical Quality Measures [ No reported AMI, CVA or VTE this stay] Coding Level of Care Code 28356 Total time (in minutes) for Discharge: 45 Diagnoses Ischemic cardiomyopathy I25.5
--- NOTE | 2024-09-23 11:08 | PC.SOCIAL ---
IMM Updated Updated pt on IMM. No questions voiced. Provided pt a copy. Initialed, dated, & timed copy in chart.
[2024-09-23] MEDS: fentaNYL 50 mcg/mL INJ 2mL IVP (11:44)
--- NOTE | 2024-09-23 12:05 | ANE.PACU2 ---
Inpatient post-anesthesia follow up: Airway intact: Yes Vital signs: Temperature 97.0 F Pulse Rate 82 Respiratory Rate 16 Blood Pressure [Le ft Arm] 125/79 Blood Pressure 116/67 Pulse Oximetry 100 Oxygen Delivery Me thod Room Air Oxygen Flow Rate 4 Fraction of Inspir ed Oxygen 21 Hydration adequate: Yes Nausea and vomiting: No Pain level: 1 Mental status: Baseline
--- NOTE | 2024-09-23 12:06 | PC.NURSE ---
Patient continues to rate pain 5 after administration of pain medication. Drifts off to sleep.
[2024-09-23 12:20] LABS: Glucose Point of Care 134 mg/dL (70-110)
[2024-09-23] MEDS: morphine 4 mg/mL SDV 1 mL 2 MG IVP (12:29)
[2024-09-23 12:48] LABS: SARS Covid-2 Antigen Negative (Negative)
--- NOTE | 2024-09-23 12:50 | PC.NURSE ---
Report called to Angela at [facility].
--- NOTE | 2024-09-23 13:15 | PC.NURSE ---
[facility] staff here to take pt back to [facility]. All belongings with pt including his phone, dentures, and life vest on. All other belongings with pt as well.
--- NOTE | 2024-09-23 16:58 | PM.OP ---
Operative Report Date of procedure: September 23, 2024 Pre-op diagnosis: Right lower extremity limb ischemia Surgeon: Bryan Ramirez DO Procedure: Surgeon: Bryan Ramirez DO Procedure: Pre-op diagnosis: Right lower extremity limb ischemia and acute open wound Post-op diagnosis: Same Post-op findings: There was necrosis of the skin and subcutaneous tissue to the level of the fascia of a large portion of the skin of the anterolateral leg on the right, the total wound measured 40 x 15 x 1 cm Anesthesia: General Procedure done: Sharp excisional debridement to the level of the fascia on the right leg of an area measuring 40 x 15 x 1 cm, wound VAC placement Specimens removed/disposition: NONE Surgeon: Bryan Ramirez DO Health Practice Manager: AISLINN OR Staff Estimated blood loss: 20 Brief History: This a 59-year-old male who presents to the hospital with right lower extremity ischemia due to peripheral artery disease, he was medically manage and subsequently revascularized with an angiogram balloon angioplasty and stent placement, unfortunately due to the lack of perfusion to the leg he developed soup cutaneous and skin necrosis, he underwent debridement multiple times and a wound VAC was placed 2 days ago. He likely needs further debridement along with wound VAC replacement. We discussed all risk and benefits as documented in my preop note and decided to proceed. Procedure: Patient was brought into the OR, he was placed in a supine position. General endotracheal and intubation was achieved by the department of anesthesia. Since patient did not have any sensation of the level of occipital anesthesia we decided to proceed with sedation. The right lower extremity was prepped and draped in usual sterile fashion. Timeout was noted. There is a previous debridement appeared healthy, the patch of skin on the anterolateral aspect of the right leg was completely demarcated I used blade to completely excise the devitalized tissue, it was noted that the skin and subcutaneous tissue was devitalized up to the level of the fascia and the majority of the wound, all areas of the wound with had at least a small amount of fibrinous exudate that was removed with a curette for sharp excisional debridement. The wound was irrigated with saline. Hemostasis was verified. I then proceeded to mature the wound, it had measurement about 40 x 15 x 1 cm. Wound VAC was then placed in the following fashion. At the end of the procedure all counts were correct, the patient tolerated well the procedure and was transferred to the PACU in stable condition.
== END 2024-09-23 13:15 | disposition skilled nursing facility (03) | DRG 278 ==
LOC: ER 17:34 → MEDSURG 18:39 → ICU 09-01 19:52 → CSU 09-08 11:08
PROVIDERS: Hospitalist; Internal Medicine; Internal Medicine Cardiovascular Disease; Internal Medicine Nephrology; Nurse Practitioner Family; Surgery; Admitting Provider Internal Medicine; Emergency Provider Emergency Medicine; PCP Internal Medicine; Visit Provider Family Medicine
PROC: 04FK3ZZ Fragmentation of Right Femoral Artery, Percutaneous Approach (ICD-10-PCS; principal; 2024-09-14 07:00)
PROC: 04FK3ZZ Fragmentation of Right Femoral Artery, Percutaneous Approach (ICD-10-PCS; 2024-09-14 07:00)
PROC: 0JBN0ZZ Excision of Right Lower Leg Subcutaneous Tissue and Fascia, Open Approach (ICD-10-PCS; principal; 2024-09-16 12:45)
PROC: 0JBN0ZZ Excision of Right Lower Leg Subcutaneous Tissue and Fascia, Open Approach (ICD-10-PCS; 2024-09-20 12:00)
DX: E11.52 Type 2 diabetes mellitus with diabetic peripheral angiopathy with gangrene (principal); I50.23 Acute on chronic systolic (congestive) heart failure; J15.1 Pneumonia due to Pseudomonas; I96 Gangrene, not elsewhere classified; L03.115 Cellulitis of right lower limb; N17.9 Acute kidney failure, unspecified; N39.0 Urinary tract infection, site not specified; E87.1 Hypo-osmolality and hyponatremia; I11.0 Hypertensive heart disease with heart failure; I82.511 Chronic embolism and thrombosis of right femoral vein; I25.5 Ischemic cardiomyopathy; E11.40 Type 2 diabetes mellitus with diabetic neuropathy, unspecified; J43.2 Centrilobular emphysema; D69.6 Thrombocytopenia, unspecified; I44.0 Atrioventricular block, first degree; F17.210 Nicotine dependence, cigarettes, uncomplicated; R33.9 Retention of urine, unspecified; I95.9 Hypotension, unspecified; I25.10 Atherosclerotic heart disease of native coronary artery without angina pectoris; G47.30 Sleep apnea, unspecified; I35.0 Nonrheumatic aortic (valve) stenosis; M51.16 Intervertebral disc disorders with radiculopathy, lumbar region; K21.9 Gastro-esophageal reflux disease without esophagitis; I48.91 Unspecified atrial fibrillation; D64.9 Anemia, unspecified; B96.20 Unspecified Escherichia coli [E. coli] as the cause of diseases classified elsewhere; I25.2 Old myocardial infarction; Z79.4 Long term (current) use of insulin; Z79.82 Long term (current) use of aspirin; Z79.02 Long term (current) use of antithrombotics/antiplatelets; Z79.01 Long term (current) use of anticoagulants; Z95.5 Presence of coronary angioplasty implant and graft
CPT/HCPCS: 36415; 36416; 36573; 36592; 51702; 51798; 71045; 71250; 73700; 74176; 75635; 75710; 80048; 80053; 80202; 81001; 82962; 83036; 83605; 83735; 83880; 83930; 83935; 84100; 84145; 84300; 84484; 85007; 85025; 85347; 85610; 85730; 86022; 86140; 87040; 87070; 87077; 87086; 87186; 87205; 87426; 88304; 88307; 93005; 93306; 93925; 93970; 94640; 94660; 94664; 96365; 96372; 96374; 96375; 96376; 97110; 97116; 97161; 97530; 99152; 99153; 99285; A9270; C1725; C1751; C1769; C1876; C1887; C1894; C2623; C9765; J1100; J1171; J1250; J1644; J1650; J1815; J1940; J2020; J2250; J2270; J2371; J2405; J2543; J2704; J3010; J3370; J3372; J3490; J7030; J7040; J7799; P9047; Q0163; Q3014; Q9967

== ENCOUNTER 2024-09-24 19:06 | Emergency (ER) | payer MEDICARE, MEDICAID, SELFPAY ==
[2024-09-24 19:08] VITALS: BP 116/64; PULSE 110; RESP 18; TEMP 37.4; O2SAT 99; BMI 31.6
--- NOTE | 2024-09-24 19:19 | W.ED.WOUNDLC ---
HPI - Wound/Laceration General: Chief Complaint: Wound/Laceration Stated Complaint: WOUND VAC ISSUE Time Seen by Provider: 09/24/24 19:07 History of Present Illness: Patient presents from alf with wound VAC alarm. Yusuf Patricio is a 59-year-old man that presents to the emergency department with wound VAC to right anterior tibia. He was admitted approximately a month ago with an ischemic leg and underwent debridements and subsequent wound VAC placement. Patient had a last VAC exchange yesterday and was discharged to a alf. This morning the device started alarming and had an air leak alarm. He was transferred back here for troubleshooting. Patient is complaining of medial ankle pain. Is treated at the nursing facility with 15 mg of morphine. Related Data Home Medications Medication Instructions Recorded Confirmed tamsulosin 0.4 mg capsule 0.4 mg PO DAILY 09/26/19 09/12/24 fluticasone propionate 50 1 spray intranasal DAILY 04/09/20 09/12/24 mcg/actuation nasal spray,suspension ibuprofen 200 mg capsule 200 mg PO Q6H PRN Pain 12/12/20 09/12/24 lidocaine HCl 2 % mucosal solution 1 applic mucous membrane TID 12/12/20 09/12/24 duloxetine 20 mg capsule,delayed 20 mg PO BID 06/23/22 09/12/24 release dapagliflozin propanediol 10 mg 10 mg PO DAILY 08/31/24 09/12/24 tablet (Farxiga) Previous Rx's Medication Instructions Recorded Diabetic shoes with 3 pairs of #1 ea 01/19/23 custom molded inserts blood-glucose meter,continuous #1 ea 07/01/23 (Dexcom G7 Health Information Systems Technician) blood-glucose sensor (Dexcom G7 #9 ea 07/01/23 Sensor device) nitroglycerin 0.4 mg sublingual See Rx Instructions .Route 04/22/24 tablet .COMPLEX #50 tabs budesonide 160 mcg-glycopyr 9 2 inh inhalation BID #10.7 grams 05/20/24 mcg-formot 4.8 mcg/actuation HFA inhaler (Breztri Aerosphere) potassium chloride 10 mEq 10 meq PO DAILY #90 tabs 05/24/24 tablet,extended release(part/cryst) clopidogrel 75 mg tablet 75 mg PO DAILY #90 tabs 06/10/24 evolocumab 140 mg/mL subcutaneous 140 mg SUBCUT .q 2weeks #2 mL 06/15/24 pen injector (zee [place]) amoxicillin 875 mg-potassium 1 tab PO BID 7 days #14 tabs 09/23/24 clavulanate 125 mg tablet apixaban 5 mg tablet (Eliquis) 5 mg PO BID@0900,2100 30 days #60 09/23/24 tabs doxycycline monohydrate 100 mg 100 mg PO BID 7 days #14 tabs 09/23/24 tablet furosemide 40 mg tablet 40 mg PO DAILY #180 tabs 09/23/24 gabapentin 300 mg capsule 300 mg PO Q12H 30 days #60 caps 09/23/24 insulin lispro 100 unit/mL See Rx Instructions .Route 09/23/24 subcutaneous solution (Humalog .COMPLEX #10 mL U-100 Insulin) isosorbide mononitrate 30 mg 15 mg (1/2 x 30 mg) PO DAILY 30 09/23/24 tablet,extended release 24 hr days #30 tabs morphine 15 mg immediate release 15 mg PO Q6H PRN Severe Pain 7 09/23/24 tablet days #28 tabs nicotine 14 mg/24 hr daily 1 patch transdermal DAILY #28 ea 09/23/24 transdermal patch nitroglycerin 0.4 mg sublingual 0.4 mg sublingual Q5M PRN Chest 09/23/24 tablet Pain 30 days #30 tabs pantoprazole 40 mg tablet,delayed 40 mg PO BID 30 days #60 tabs 09/23/24 release (Protonix) ranolazine 500 mg tablet,extended 500 mg PO DAILY 30 days #30 tabs 09/23/24 release,12 hr sacubitril 24 mg-valsartan 26 mg 1 tab PO DAILY 30 days #30 tabs 09/23/24 tablet (Entresto) sucralfate 1 gram tablet (Carafate) 1 g PO BID 4 weeks #56 tabs 09/23/24 Allergies Allergy/AdvReac Type Severity Reaction Status Date / Time No Known Allergies Allergy Verified 09/12/24 08:11 Review of Systems General: Reports: 10 or more systems reviewed and unremarkable except in HPI and below PFSH ED PFSH: Medical History (Updated 09/24/24 @ 19:55 by Nehla Matos, ANNIE) Lower extremity edema Chronic venous insufficiency Chest pain, unspecified History of intravenous drug use in remission COPD (chronic obstructive pulmonary disease) Congestive heart failure Angina pectoris Hematuria, microscopic Acute pharyngitis, unspecified Hx of myocardial infarction Chronic low back pain Benign essential HTN Arthritis Encounter for long-term (current) use of NSAIDs Atypical chest pain Benign prostatic hyperplasia without lower urinary tract symptoms High blood pressure Hypercholesteremia Mixed hyperlipidemia Diabetes mellitus Long-term current use of opiate analgesic Pain management contract signed DDD (degenerative disc disease), lumbar Tobacco use disorder Smokes to calm his nerves Chronic pain of both knees Gastro-esophageal reflux disease without esophagitis Right testicular pain Calculus of kidney Fracture of arm Abdominal pain of unknown etiology Adhesive tendinitis Male erectile dysfunction, unspecified Abscess, dental Migraine Intervertebral disc disorders with radiculopathy, lumbar region Acute bilateral knee pain Acute left-sided low back pain Other senior care (current) drug therapy Type 2 diabetes mellitus with diabetic neuropathy, unspecified Patient continues to have neuropathy symptoms Aortic valvar stenosis Nicotine dependence, unspecified, uncomplicated Fracture of wrist Surgical History History of PTCA S/P tendon repair H/O hernia repair H/O umbilical hernia repair H/O knee surgery Family History Mother , Metastasis Cancer Hypertension Stomach ulcer Arthritis Father , Gunshot Hypertension Sister Clotting disorder Grandmother CAD (coronary artery disease) Cancer Stroke Grandfather CAD (coronary artery disease) Cancer Family/Other Suicide Other Heart disease Denies family history of Diabetes Dementia Chronic kidney disease (CKD) Anesthesia complication Bleeding disorder Lung disease Social History Smoking and tobacco/nicotine status: current every day tobacco/nicotine user cigarettes Packs smoked per day: 1.5 Years cigarettes smoked: 35 Alcohol intake: former Year of sobriety/quit date alcohol: 2014 Substance/Drug Use: never Lives independently: Yes Household members: none Marital status: Legally Current occupational status: disabled Do you think of yourself as: Straight/Heterosexual Current gender identity: Male Physical Exam Const: COMMON NORMALS: patient oriented x3 HENMT: COMMON NORMALS: normocephalic and atraumatic HEAD & SCALP: normocephalic and atraumatic Eye: COMMON NORMALS: conjunctivae normal CONJUNCTIVA: Yes conjunctivae normal Neck/C-Spine: COMMON NORMALS: full ROM and supple Chest: COMMONS NORMALS: normal inspection of the chest and normal palpation of entire chest wall Resp: COMMON NORMALS: normal respiratory effort, No retractions, No use of accessory muscles and clear to auscultation bilaterally AUSCULTATION: clear to auscultation bilaterally Cardio: COMMON NORMALS: regular rate, regular rhythm and No murmurs present (Cardio) RATE: regular rate RHYTHM: regular rhythm Extremity: COMMON NORMALS: full ROM NARRATIVE EXTREMITY EXAM: Wound VAC to the right anterior tibia. Nonfunctioning but the VAC has been removed from the sponge tubing. There is 2 areas where the black sponge is exposed. Neuro: COMMON NORMALS: patient oriented x3, moves all extremities and no focal motor deficits Psych: COMMON NORMALS: mental status grossly normal, Normal thought process present and cooperative THOUGHT PROCESS: Normal thought process present Skin: COMMON NORMALS: no rashes or lesions noted and no wounds GENERAL SKIN EXAM: no rashes or lesions noted Course Vital Signs: Vital signs: Vital Signs Temperature 99.3 F 09/24/24 19:08 Pulse Rate 110 H 09/24/24 19:08 Respiratory Rate 18 09/24/24 19:08 Blood Pressure 116/64 09/24/24 19:08 Pulse Oximetry 99 09/24/24 19:08 Oxygen Delivery Me thod Room Air 09/24/24 19:08 MDM - Wound/Laceration Medical Decision Making Patient evaluated in the emergency department today for back issues. Patient did not have a KCI VAC on arrival. We obtained a KCI VAC and materials to reinforce dressing. There were 2 areas where the splint was exposed. KCI VAC tape applied and suction was maintained. I did make contact with Dr. Ramirez and relayed course of events. No further recommendations. Patient is free to discharge back to facility. No radiology studies performed this visit Discharge Plan Discharge Patient Disposition: [facility] Clinical Impression: Encounter for management of vacuum-assisted closure (VAC) of wound Condition: Stable Prescriptions: No Action tamsulosin 0.4 mg capsule 0.4 mg PO DAILY fluticasone propionate 50 mcg/actuation spray,suspension 1 spray INTRANASAL DAILY lidocaine HCl 2 % solution 1 applic mucous membrane TID ibuprofen 200 mg capsule 200 mg PO Q6H PRN (Reason: Pain) clopidogrel 75 mg tablet 75 mg PO DAILY Qty: 90 3RF duloxetine 20 mg capsule,delayed release(DR/EC) 20 mg PO BID (DME) Diabetic shoes with 3 pairs of custom molded inserts See Rx Instructions .Route .MEDSUPPLY Qty: 1 0RF Rx Instructions: As directed HOME (DME) Dexcom G7 Sensor Device See Rx Instructions .Route Qty: 9 0RF Rx Instructions: As directed (DME) Dexcom G7 Health Information Systems Technician Misc See Rx Instructions .Route Qty: 1 0RF Rx Instructions: As directed Repatha SureClick 140 mg/mL pen injector 140 mg SUBCUT .q 2weeks Qty: 2 3RF Hold Instructions: Resume on 10/28/24. nitroglycerin 0.4 mg tablet, sublingual See Rx Instructions .ROUTE .COMPLEX Qty: 50 5RF Dose Instruction: place one tab UNDER THE TONGUE every five minutes NEEDED FOR CHEST pain * max THREE doses * Rx Instructions: place one tab UNDER THE TONGUE every five minutes NEEDED FOR CHEST pain * max THREE doses * Breztri Aerosphere 160-9-4.8 mcg/actuation HFA aerosol inhaler 2 inh inhalation BID Qty: 10.7 6RF potassium chloride 10 mEq tablet,ER particles/crystals 10 meq PO DAILY Qty: 90 3RF dapagliflozin propanediol [Farxiga] 10 mg tablet 10 mg PO DAILY Rx Instructions: TAKE 1 TABLET BY MOUTH EVERY DAY isosorbide mononitrate 30 mg Tablet Extended Release 24 Hr 15 mg PO DAILY 30 Days Qty: 30 0RF doxycycline monohydrate 100 mg Tablet 100 mg PO BID 7 Days Qty: 14 0RF gabapentin 300 mg Capsule 300 mg PO Q12H 30 Days Qty: 60 0RF insulin lispro [Humalog U-100 Insulin] 100 unit/mL Solution See Rx Instructions .ROUTE .COMPLEX Qty: 10 0RF Rx Instructions: Inject, subcut, 3 times daily, after meals, based on sliding scale provided amoxicillin-pot clavulanate 875-125 mg Tablet 1 tab PO BID 7 Days Qty: 14 0RF Eliquis 5 mg Tablet 5 mg PO BID@0900,2100 30 Days Qty: 60 0RF nicotine 14 mg/24 hr Patch 24 Hour 1 patch transdermal DAILY Qty: 28 0RF nitroglycerin 0.4 mg Tablet, Sublingual 0.4 mg sublingual Q5M PRN (Reason: Chest Pain) 30 Days Qty: 30 0RF sacubitril-valsartan [Entresto] 24-26 mg Tablet 1 tab PO DAILY 30 Days Qty: 30 0RF furosemide 40 mg tablet 40 mg PO DAILY Qty: 180 3RF ranolazine 500 mg tablet extended release 12 hr 500 mg PO DAILY 30 Days Qty: 30 0RF pantoprazole [Protonix] 40 mg tablet,delayed release (DR/EC) 40 mg PO BID 30 Days Qty: 60 0RF sucralfate [Carafate] 1 gram tablet 1 g PO BID 28 Days Qty: 56 0RF morphine 15 mg Tablet 15 mg PO Q6H PRN (Reason: Severe Pain) 7 Days Qty: 28 0RF Referrals: Yusuf Rivera DO [Primary Care Provider] - Discharge Diet: Advance as tolerated Discharge Activity: Resume usual activity Activity Restrictions/Additional Instructions: Please reinforce dressing as needed. If you find that there is a part of the clear plastic dressing lifted or if you find that there is a black sponge exposed, please reinforce dressing. Please return to the emergency department as needed for new concerning or worsening symptoms Coding Level of Care Code ED Press Clippings Cutter And Paster for Yee Ibrahim
[2024-09-24 21:24] VITALS: BP 168/75; PULSE 64; O2SAT 99
== END 2024-09-24 23:59 | disposition home or self-care (01) ==
PROVIDERS: Emergency Provider Nurse Practitioner; PCP Internal Medicine
DX: Z48.01 Encounter for change or removal of surgical wound dressing (principal); Z79.4 Long term (current) use of insulin; Z79.01 Long term (current) use of anticoagulants; F17.210 Nicotine dependence, cigarettes, uncomplicated; E78.5 Hyperlipidemia, unspecified; E11.40 Type 2 diabetes mellitus with diabetic neuropathy, unspecified; J44.9 Chronic obstructive pulmonary disease, unspecified; I11.0 Hypertensive heart disease with heart failure; I50.9 Heart failure, unspecified
CPT/HCPCS: 99283

== ENCOUNTER 2024-09-26 10:36 | Emergency (ER) | payer MEDICARE, MEDICAID, SELFPAY ==
[2024-09-26 10:37] VITALS: BP 112/82; PULSE 115; RESP 17; TEMP 36.9; O2SAT 100
[2024-09-26 11:14] LABS: Basophils # 0.1 10^3/uL (0.0-0.1); Basophils % 0.6 %; Eosinophils # 0.1 10^3/uL (0.0-0.8); Eosinophils % 0.7 %; Hematocrit 27.7 % (37-53); Lymphocytes # 1.6 10^3/uL (0.8-4.8); Lymphocytes % 10.6 %; Mean Corpuscular HGB Conc 31.4 g/dL (30-55); Mean Corpuscular Hemoglobin 27.5 pg (27-33); Mean Corpuscular Volume 87.7 fl (82-101); Mean Platelet Volume 10.6 fL (7.4-10.4); Monocytes # 1.2 10^3/uL (0.2-0.9); Monocytes % 8.3 %; Neutrophils # 11.56 10^3/uL (1.8-7.7); Neutrophils % 77.5 %; Nucleated Red Blood Cells % 0.3 %; Platelet Count 200 10^3/cmm (157-399); Red Blood Count 3.16 10^6/uL (3.85-5.65); Red Cell Distribution Width 18.8 % (12.1-15.1); White Blood Count 14.92 10^3/uL (3.29-11.43)
--- NOTE | 2024-09-26 11:19 | W.ED.WOUNDLC ---
HPI - Wound/Laceration General: Chief Complaint: Wound/Laceration Stated Complaint: right leg wound Time Seen by Provider: 09/26/24 10:45 History of Present Illness: 59-year-old male presents emergency room from the snf. He has a large open wound on the right anterior tibia. He has a fresh dressing on his at this time. Evidently there was some concern about the wound. He was discharged 3 days ago. He came back the following day and then today there was some wound VAC issues on 122 and he was brought to the emergency room at that time. According to the notes from that visit Dr. Ramirez was consulted.. According to old wound was precipitated by ischemia issues. During last hospitalization the patient had an abdominal aorta with runoff showed occlusion in the right femoral artery. He underwent percutaneous lithotripsy and stent placement after which he had good arterial vascular flow to the lower extremity. Patient was discharged home on oral antibiotics. Patient does have ischemic cardiomyopathy and has a LifeVest on. According to discharge summary during the last hospitalization he did have a stent placed. Associated symptoms: Denies chills or fever(s) Related Data Home Medications Medication Instructions Recorded Confirmed tamsulosin 0.4 mg capsule 0.4 mg PO DAILY 09/26/19 09/26/24 fluticasone propionate 50 1 spray intranasal DAILY 04/09/20 09/26/24 mcg/actuation nasal spray,suspension lidocaine HCl 2 % mucosal solution 1 applic mucous membrane TID 12/12/20 09/26/24 duloxetine 20 mg capsule,delayed 20 mg PO BID 06/23/22 09/26/24 release dapagliflozin propanediol 10 mg 10 mg PO DAILY 08/31/24 09/26/24 tablet (Farxiga) acetaminophen 325 mg tablet 325 mg PO QID PRN Pain 09/26/24 09/26/24 (Tylenol) bisacodyl 10 mg rectal suppository 10 mg AR DAILY PRN Constipation 09/26/24 09/26/24 (Dulcolax (bisacodyl)) budesonide 160 mcg-glycopyr 9 2 inh inhalation BID 09/26/24 09/26/24 mcg-formot 4.8 mcg/actuation HFA inhaler (Breztri Aerosphere) oxycodone 5 mg tablet,oral ONLY 5 - 10 mg PO Q4H PRN Pain 09/26/24 09/26/24 (not feeding tubes) oxycodone-acetaminophen 5 mg-325 1 - 2 tab PO Q6H PRN Pain 09/26/24 09/26/24 mg tablet (Percocet) Previous Rx's Medication Instructions Recorded Diabetic shoes with 3 pairs of #1 ea 01/19/23 custom molded inserts blood-glucose meter,continuous #1 ea 07/01/23 (Dexcom G7 Offset Proof 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) blood-glucose sensor (Dexcom G7 #9 ea 07/01/23 Sensor device) nitroglycerin 0.4 mg sublingual See Rx Instructions .Route 04/22/24 tablet .COMPLEX #50 tabs potassium chloride 10 mEq 10 meq PO DAILY #90 tabs 05/24/24 tablet,extended release(part/cryst) clopidogrel 75 mg tablet 75 mg PO DAILY #90 tabs 06/10/24 evolocumab 140 mg/mL subcutaneous 140 mg SUBCUT .q 2weeks #2 mL 06/15/24 pen injector (Amna Cisneros) amoxicillin 875 mg-potassium 1 tab PO BID 7 days #14 tabs 09/23/24 clavulanate 125 mg tablet apixaban 5 mg tablet (Eliquis) 5 mg PO BID@0900,2100 30 days #60 09/23/24 tabs doxycycline monohydrate 100 mg 100 mg PO BID 7 days #14 tabs 09/23/24 tablet furosemide 40 mg tablet 40 mg PO DAILY #180 tabs 09/23/24 gabapentin 300 mg capsule 300 mg PO Q12H 30 days #60 caps 09/23/24 insulin lispro 100 unit/mL See Rx Instructions .Route 09/23/24 subcutaneous solution (Humalog .COMPLEX #10 mL U-100 Insulin) isosorbide mononitrate 30 mg 15 mg (1/2 x 30 mg) PO DAILY 30 09/23/24 tablet,extended release 24 hr days #30 tabs morphine 15 mg immediate release 15 mg PO Q6H PRN Severe Pain 7 09/23/24 tablet days #28 tabs nicotine 14 mg/24 hr daily 1 patch transdermal DAILY #28 ea 09/23/24 transdermal patch pantoprazole 40 mg tablet,delayed 40 mg PO BID 30 days #60 tabs 09/23/24 release (Protonix) ranolazine 500 mg tablet,extended 500 mg PO DAILY 30 days #30 tabs 09/23/24 release,12 hr sacubitril 24 mg-valsartan 26 mg 1 tab PO DAILY 30 days #30 tabs 09/23/24 tablet (Entresto) sucralfate 1 gram tablet (Carafate) 1 g PO BID 4 weeks #56 tabs 09/23/24 collagenase clostridium histo. 250 1 applic topical DAILY #90 grams 09/26/24 unit/gram topical ointment (Santyl) Allergies Allergy/AdvReac Type Severity Reaction Status Date / Time No Known Allergies Allergy Verified 09/12/24 08:11 Review of Systems Const: Denies: fever(s) or chills Card: Denies: chest pain Resp: Denies: dyspnea GI: Denies: abdominal pain : Denies: dysuria, urinary frequency or urinary urgency Musc: Reports: extremity pain; Denies: neck pain or back pain Skin/Breast: Denies: rash PFSH ED PFSH: Medical History Lower extremity edema Chronic venous insufficiency Chest pain, unspecified History of intravenous drug use in remission COPD (chronic obstructive pulmonary disease) Congestive heart failure Angina pectoris Hematuria, microscopic Acute pharyngitis, unspecified Hx of myocardial infarction Chronic low back pain Benign essential HTN Arthritis Encounter for long-term (current) use of NSAIDs Atypical chest pain Benign prostatic hyperplasia without lower urinary tract symptoms High blood pressure Hypercholesteremia Mixed hyperlipidemia Diabetes mellitus Long-term current use of opiate analgesic Pain management contract signed DDD (degenerative disc disease), lumbar Tobacco use disorder Smokes to calm his nerves Chronic pain of both knees Gastro-esophageal reflux disease without esophagitis Right testicular pain Calculus of kidney Fracture of arm Abdominal pain of unknown etiology Adhesive tendinitis Male erectile dysfunction, unspecified Abscess, dental Migraine Intervertebral disc disorders with radiculopathy, lumbar region Acute bilateral knee pain Acute left-sided low back pain 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 Type 2 diabetes mellitus with diabetic neuropathy, unspecified Patient continues to have neuropathy symptoms Aortic valvar stenosis Nicotine dependence, unspecified, uncomplicated Fracture of wrist Surgical History History of PTCA S/P tendon repair H/O hernia repair H/O umbilical hernia repair H/O knee surgery Family History Mother , Metastasis Cancer Hypertension Stomach ulcer Arthritis Father , Gunshot Hypertension Sister Clotting disorder Grandmother CAD (coronary artery disease) Cancer Stroke Grandfather CAD (coronary artery disease) Cancer Family/Other Suicide Other Heart disease Denies family history of Diabetes Dementia Chronic kidney disease (CKD) Anesthesia complication Bleeding disorder Lung disease Social History Smoking and tobacco/nicotine status: current every day tobacco/nicotine user cigarettes Packs smoked per day: 1.5 Years cigarettes smoked: 35 Alcohol intake: former Year of sobriety/quit date alcohol: 2014 Substance/Drug Use: never Lives independently: Yes Household members: none Marital status: Legally Current occupational status: disabled Do you think of yourself as: Straight/Heterosexual Current gender identity: Male Physical Exam Const: COMMON NORMALS: no acute distress GENERAL APPEARANCE: cooperative and comfortable ORIENTATION/CONSCIOUSNESS: Yes awake, Yes oriented to person, Yes oriented to place and Yes oriented to time HENMT: COMMON NORMALS: normocephalic, atraumatic and hearing grossly normal bilaterally HEAD & SCALP: normocephalic and atraumatic Resp: COMMON NORMALS: normal respiratory effort, No retractions, No use of accessory muscles and clear to auscultation bilaterally AUSCULTATION: clear to auscultation bilaterally Cardio: COMMON NORMALS: regular rate, regular rhythm and No murmurs present (Cardio) RATE: regular rate RHYTHM: regular rhythm GI: COMMON NORMALS: Soft to palpation and No hepatosplenomegaly present AUSCULTATION: Yes normoactive bowel sounds PALPATION: Yes Soft to palpation, No Tenderness to palpation present (GI), No Guarding due to palpation present (GI) and Yes No hepatosplenomegaly present Extremity: NARRATIVE EXTREMITY EXAM: Large open wound on the anterior tibia extending laterally on the right lower leg. There is mucinous eschars at the base of the wound tissue edges are granulating well. Some of the eschar is starting to darken there is no sign of active drainage or infection at this time. No sign of gangrenous changes. No purulent drainage or foul-smelling discharge. Neuro: SENSORIUM/ORIENTATION: Yes oriented to person, Yes oriented to place and Yes oriented to time Skin: COMMON NORMALS: no rashes or lesions noted GENERAL SKIN EXAM: no rashes or lesions noted Course Vital Signs: Vital signs: Vital Signs Temperature 98.4 F 09/26/24 10:37 Pulse Rate 115 H 09/26/24 10:37 Respiratory Rate 17 09/26/24 10:37 Blood Pressure 112/82 09/26/24 10:37 Pulse Oximetry 100 09/26/24 10:37 Oxygen Delivery Me thod Room Air 09/26/24 10:37 MDM - Wound/Laceration Medical Decision Making Patient has peripheral artery disease this wound was originally precipitated by an event of ischemia. That was addressed during the last hospitalization which she went to revascularization procedure which showed good blood flow to the extremity following. Dr. Ramirez had seen the patient during that hospitalization he was consulted in the emergency room. We reviewed the lab findings including the increase in white count. At this time Dr. Ramirez does not feel that there is a worsening infection. While the wound is rather large and impressive overall at this point the previous debridement appears to have done well. He likely will require more debridement in the future. Dr. Ramirez recommended stopping the wound VAC and instead switching to Santyl once a day with daily dressing changes, and following up to wound care clinic. Patient currently is on doxycycline Augmentin which was prescribed at the time of discharge, the should be continued. Patient does have some mild hyponatremia which is chronic, this was noted during previous hospitalization. Medical Records I reviewed the patient's medical records. Lab Data I reviewed the patient's lab results. 09/26/24 10:45 09/26/24 10:45 Laboratory Results WBC 14.92 10^3/uL (3.29-11.43) H 09/26/24 10:45 RBC 3.16 10^6/uL (3.85-5.65) L 09/26/24 10:45 Hgb 8.70 g/dL (11.27-16.99) L 09/26/24 10:45 Hct 27.7 % (37-53) L 09/26/24 10:45 MCV 87.7 fl (82-101) 09/26/24 10:45 MCH 27.5 pg (27-33) 09/26/24 10:45 MCHC 31.4 g/dL (30-55) 09/26/24 10:45 RDW 18.8 % (12.1-15.1) H 09/26/24 10:45 Plt Count 200 10^3/cmm (157-399) 09/26/24 10:45 MPV 10.6 fL (7.4-10.4) H 09/26/24 10:45 Neut % (Auto) 77.5 % 09/26/24 10:45 Lymph % (Auto) 10.6 % 09/26/24 10:45 [place] % (Auto) 8.3 % 09/26/24 10:45 Eos % (Auto) 0.7 % 09/26/24 10:45 Baso % (Auto) 0.6 % 09/26/24 10:45 Neut # (Auto) 11.56 10^3/uL (1.8-7.7) H 09/26/24 10:45 Lymph # (Auto) 1.6 10^3/uL (0.8-4.8) 09/26/24 10:45 [place] # (Auto) 1.2 10^3/uL (0.2-0.9) H 09/26/24 10:45 Eos # (Auto) 0.1 10^3/uL (0.0-0.8) 09/26/24 10:45 Baso # (Auto) 0.1 10^3/uL (0.0-0.1) 09/26/24 10:45 Nucleated RBC % (auto) 0.3 % 09/26/24 10:45 Nucleated RBCs # 0.0 /100WBC 09/26/24 10:45 Sodium 128 mmol/L (136-145) L 09/26/24 10:45 Potassium 4.7 mmol/L (3.5-5.1) 09/26/24 10:45 Chloride 89 mmol/L (98-107) L 09/26/24 10:45 Carbon Dioxide 25 mmol/L (22-29) 09/26/24 10:45 Anion Gap 18.7 (5-19) 09/26/24 10:45 BUN 14 mg/dL (6-20) 09/26/24 10:45 Creatinine 0.8 mg/dL (0.7-1.2) 09/26/24 10:45 GFR Calculation 99.6 mL/min (90-130) 09/26/24 10:45 Glucose 140 mg/dL (65-115) H 09/26/24 10:45 Calculated Osmolality 269 mOsm/kg (285-295) L 09/26/24 10:45 Calcium 8.9 mg/dL (8.5-10.5) 09/26/24 10:45 Total Bilirubin 0.6 mg/dL (0.15-1.2) 09/26/24 10:45 AST 16 U/L (0-40) 09/26/24 10:45 ALT 21 U/L (0-41) 09/26/24 10:45 Alkaline Phosphatase 275 U/L (40-130) H 09/26/24 10:45 Total Protein 6.9 g/dL (6.6-8.7) 09/26/24 10:45 Albumin 3.7 g/dL (3.5-5.2) 09/26/24 10:45 Globulin 3.2 g/dL (1.3-4.6) 09/26/24 10:45 No radiology studies performed this visit Discharge Plan Discharge Patient Disposition: Home Clinical Impression: Critical limb ischemia of right lower extremity, PAD (peripheral artery disease), Ischemic cardiomyopathy Diabetes mellitus Qualifiers: Diabetes mellitus type: type 2 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 use: with [facility] use Diabetes mellitus complication status: with other specified complication Qualified Code(s): E11.69 - Type 2 diabetes mellitus with other specified complication Condition: Stable Prescriptions: New Santyl 250 unit/gram ointment 1 applic topical DAILY Qty: 90 0RF No Action tamsulosin 0.4 mg capsule 0.4 mg PO DAILY fluticasone propionate 50 mcg/actuation spray,suspension 1 spray INTRANASAL DAILY lidocaine HCl 2 % solution 1 applic mucous membrane TID clopidogrel 75 mg tablet 75 mg PO DAILY Qty: 90 3RF duloxetine 20 mg capsule,delayed release(DR/EC) 20 mg PO BID (DME) Diabetic shoes with 3 pairs of custom molded inserts See Rx Instructions .Route .MEDSUPPLY Qty: 1 0RF Rx Instructions: As directed HOME (DME) Dexcom G7 Sensor Device See Rx Instructions .Route Qty: 9 0RF Rx Instructions: As directed (DME) Dexcom G7 Offset Proof 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 Misc See Rx Instructions .Route Qty: 1 0RF Rx Instructions: As directed Repatha SureClick 140 mg/mL pen injector 140 mg SUBCUT .q 2weeks Qty: 2 3RF Hold Instructions: Resume on 10/28/24. nitroglycerin 0.4 mg tablet, sublingual See Rx Instructions .ROUTE .COMPLEX Qty: 50 5RF Dose Instruction: place one tab UNDER THE TONGUE every five minutes NEEDED FOR CHEST pain * max THREE doses * Rx Instructions: place one tab UNDER THE TONGUE every five minutes NEEDED FOR CHEST pain * max THREE doses * potassium chloride 10 mEq tablet,ER particles/crystals 10 meq PO DAILY Qty: 90 3RF dapagliflozin propanediol [Farxiga] 10 mg tablet 10 mg PO DAILY Rx Instructions: TAKE 1 TABLET BY MOUTH EVERY DAY isosorbide mononitrate 30 mg Tablet Extended Release 24 Hr 15 mg PO DAILY 30 Days Qty: 30 0RF doxycycline monohydrate 100 mg Tablet 100 mg PO BID 7 Days Qty: 14 0RF gabapentin 300 mg Capsule 300 mg PO Q12H 30 Days Qty: 60 0RF insulin lispro [Humalog U-100 Insulin] 100 unit/mL Solution See Rx Instructions .ROUTE .COMPLEX Qty: 10 0RF Rx Instructions: Inject, subcut, 3 times daily, after meals, based on sliding scale provided amoxicillin-pot clavulanate 875-125 mg Tablet 1 tab PO BID 7 Days Qty: 14 0RF Eliquis 5 mg Tablet 5 mg PO BID@0900,2100 30 Days Qty: 60 0RF nicotine 14 mg/24 hr Patch 24 Hour 1 patch transdermal DAILY Qty: 28 0RF sacubitril-valsartan [Entresto] 24-26 mg Tablet 1 tab PO DAILY 30 Days Qty: 30 0RF furosemide 40 mg tablet 40 mg PO DAILY Qty: 180 3RF ranolazine 500 mg tablet extended release 12 hr 500 mg PO DAILY 30 Days Qty: 30 0RF pantoprazole [Protonix] 40 mg tablet,delayed release (DR/EC) 40 mg PO BID 30 Days Qty: 60 0RF sucralfate [Carafate] 1 gram tablet 1 g PO BID 28 Days Qty: 56 0RF morphine 15 mg Tablet 15 mg PO Q6H PRN (Reason: Severe Pain) 7 Days Qty: 28 0RF Breztri Aerosphere 160-9-4.8 mcg/actuation HFA aerosol inhaler 2 inh INHALATION BID acetaminophen [Tylenol] 325 mg Tablet 325 mg PO QID PRN (Reason: Pain) oxycodone-acetaminophen [Percocet] 5-325 mg Tablet 1 - 2 tab PO Q6H PRN (Reason: Pain) bisacodyl [Dulcolax (bisacodyl)] 10 mg Suppository 10 mg AR DAILY PRN (Reason: Constipation) oxycodone 5 mg Tablet, Oral Only 5 - 10 mg PO Q4H PRN (Reason: Pain) Discharge Orders: Discharge ED (Routine); Ordered 09/26/24 Ordered By: Triston Batres Referrals: Yusuf Rivera, [Primary Care Provider] - Discharge Diet: Usual diet Discharge Activity: Increase activity as tolerated Patient Instructions: Opioid Safety, Pain Management Activity Restrictions/Additional Instructions: Thank you for choosing [facility] for your healthcare needs today. It is very important that you follow up as instructed or that you return to the Emergency Department should you have concerns or if your condition changes or worsens in any way. You are seen in the emergency room with concerns about the wound on the right lower leg. There is no signs of acute infection. Dr. Ramirez reviewed your case and seen you in the emergency room. The wound does not require debridement at this time. Recommending stopping the wound VAC and instead using Santyl applied to the wound daily and dress. Case management also make an appointment for follow-up with wound care clinic. The wound likely will require debridement in the future. This can be arranged to wound care clinic. Coding Level of Care Code ED [employer] Specialist for Yee Ibrahim
[2024-09-26 11:31] LABS: Alanine Aminotransferase 21 U/L (0-41); Albumin Level 3.7 g/dL (3.5-5.2); Alkaline Phosphatase 275 U/L (40-130); Anion Gap 18.7 (5-19); Aspartate Amino Transferase 16 U/L (0-40); Blood Urea Nitrogen 14 mg/dL (6-20); Calcium 8.9 mg/dL (8.5-10.5); Carbon Dioxide 25 mmol/L (22-29); Chloride 89 mmol/L (98-107); Globulin 3.2 g/dL (1.3-4.6); Glomerular Filtration Rate 99.6 mL/min (90-130); Glucose 140 mg/dL (65-115); Osmolality Calculated 269 mOsm/kg (285-295); Potassium 4.7 mmol/L (3.5-5.1); Sodium 128 mmol/L (136-145); Total Bilirubin 0.6 mg/dL (0.15-1.2); Total Protein 6.9 g/dL (6.6-8.7)
--- NOTE | 2024-09-26 11:31 | PC.NURSE ---
wound redressed per MD request
--- NOTE | 2024-09-26 12:01 | PM.CONSULT ---
Providers/Reason For Consult Consulting Physician/Specialty*: Dr. Bryan Ramirez, DO/General Surgery Reason for Consult*: right lower extremity wound Primary Care Provider: Yusuf Rivera DO History of Present Illness History of Present Illness Yusuf Buck is a 59 year old male with peripheral arterial disease who recently underwent a rather extensive surgical debridement of his right lower extremity by my partner, Dr. Bhavana Harper. I subsequently performed 2 additional sharp excisional debridements with wound VAC changes in the operating room. He was discharged to a senior care and they have had some difficulty managing his wound VAC, which is understandable given the size of the wound. The senior care sent him into the ER with concerns about the wound. Patient denies any pain or other symptoms Review of Systems General: Reports: 10 or more systems reviewed and unremarkable except in HPI and below Medications/Allergies Home Medications Medication Instructions Recorded Confirmed Last Taken Type tamsulosin 0.4 mg capsule 0.4 mg PO DAILY 09/26/19 09/26/24 09/26/24 07:55 History fluticasone propionate 50 1 spray intranasal DAILY 04/09/20 09/26/24 09/26/24 07:55 History mcg/actuation nasal spray,suspension lidocaine HCl 2 % mucosal solution 1 applic mucous membrane TID 12/12/20 09/26/24 09/26/24 09:25 History duloxetine 20 mg capsule,delayed 20 mg PO BID 06/23/22 09/26/24 09/26/24 07:55 History release Diabetic shoes with 3 pairs of #1 ea 01/19/23 09/26/24 Unknown Rx custom molded inserts blood-glucose meter,continuous #1 ea 07/01/23 09/26/24 Unknown Rx (Dexcom G7 [employer] Machine [employer]ic) blood-glucose sensor (Dexcom G7 #9 ea 07/01/23 09/26/24 Unknown Rx Sensor device) nitroglycerin 0.4 mg sublingual See Rx Instructions .Route 04/22/24 09/26/24 Unknown Rx tablet .COMPLEX #50 tabs potassium chloride 10 mEq 10 meq PO DAILY #90 tabs 05/24/24 09/26/24 09/26/24 Rx tablet,extended release(part/cryst) clopidogrel 75 mg tablet 75 mg PO DAILY #90 tabs 06/10/24 09/26/24 09/26/24 07:55 Rx evolocumab 140 mg/mL subcutaneous 140 mg SUBCUT .q 2weeks #2 mL 06/15/24 09/26/24 Unknown Rx pen injector (Amna Cisneros) dapagliflozin propanediol 10 mg 10 mg PO DAILY 08/31/24 09/26/24 09/26/24 07:55 History tablet (Farxiga) amoxicillin 875 mg-potassium 1 tab PO BID 7 days #14 tabs 09/23/24 09/26/24 09/26/24 07:55 Rx clavulanate 125 mg tablet apixaban 5 mg tablet (Eliquis) 5 mg PO BID@0900,2100 30 days #60 09/23/24 09/26/24 09/26/24 07:55 Rx tabs doxycycline monohydrate 100 mg 100 mg PO BID 7 days #14 tabs 09/23/24 09/26/24 09/26/24 07:55 Rx tablet furosemide 40 mg tablet 40 mg PO DAILY #180 tabs 09/23/24 09/26/24 09/26/24 07:55 Rx gabapentin 300 mg capsule 300 mg PO Q12H 30 days #60 caps 09/23/24 09/26/24 09/26/24 07:55 Rx insulin lispro 100 unit/mL See Rx Instructions .Route 09/23/24 09/26/24 09/26/24 07:55 Rx subcutaneous solution (Humalog .COMPLEX #10 mL U-100 Insulin) isosorbide mononitrate 30 mg 15 mg (1/2 x 30 mg) PO DAILY 30 09/23/24 09/26/24 09/26/24 07:55 Rx tablet,extended release 24 hr days #30 tabs morphine 15 mg immediate release 15 mg PO Q6H PRN Severe Pain 7 09/23/24 09/26/24 09/25/24 00:20 Rx tablet days #28 tabs nicotine 14 mg/24 hr daily 1 patch transdermal DAILY #28 ea 09/23/24 09/26/24 09/26/24 07:55 Rx transdermal patch pantoprazole 40 mg tablet,delayed 40 mg PO BID 30 days #60 tabs 09/23/24 09/26/24 09/26/24 07:55 Rx release (Protonix) ranolazine 500 mg tablet,extended 500 mg PO DAILY 30 days #30 tabs 09/23/24 09/26/24 09/26/24 07:55 Rx release,12 hr sacubitril 24 mg-valsartan 26 mg 1 tab PO DAILY 30 days #30 tabs 09/23/24 09/26/24 09/26/24 07:55 Rx tablet (Entresto) sucralfate 1 gram tablet (Carafate) 1 g PO BID 4 weeks #56 tabs 09/23/24 09/26/24 09/26/24 07:55 Rx acetaminophen 325 mg tablet 325 mg PO QID PRN Pain 09/26/24 09/26/24 Unknown History (Tylenol) bisacodyl 10 mg rectal suppository 10 mg MN DAILY PRN Constipation 09/26/24 09/26/24 Unknown History (Dulcolax (bisacodyl)) budesonide 160 mcg-glycopyr 9 2 inh inhalation BID 09/26/24 09/26/24 09/26/24 History mcg-formot 4.8 mcg/actuation HFA inhaler (Breztri Aerosphere) collagenase clostridium histo. 250 1 applic topical DAILY #90 grams 09/26/24 Unknown Rx unit/gram topical ointment (Santyl) oxycodone 5 mg tablet,oral ONLY 5 - 10 mg PO Q4H PRN Pain 09/26/24 09/26/24 09/25/24 08:55 History (not feeding tubes) oxycodone-acetaminophen 5 mg-325 1 - 2 tab PO Q6H PRN Pain 09/26/24 09/26/24 09/26/24 07:05 History mg tablet (Percocet) Allergies Allergy/AdvReac Type Severity Reaction Status Date / Time No Known Allergies Allergy Verified 09/12/24 08:11 PFSH Acute PFSH: Medical History Lower extremity edema Chronic venous insufficiency Chest pain, unspecified History of intravenous drug use in remission COPD (chronic obstructive pulmonary disease) Congestive heart failure Angina pectoris Hematuria, microscopic Acute pharyngitis, unspecified Hx of myocardial infarction Chronic low back pain Benign essential HTN Arthritis Encounter for long-term (current) use of NSAIDs Atypical chest pain Benign prostatic hyperplasia without lower urinary tract symptoms High blood pressure Hypercholesteremia Mixed hyperlipidemia Diabetes mellitus Long-term current use of opiate analgesic Pain management contract signed DDD (degenerative disc disease), lumbar Tobacco use disorder Smokes to calm his nerves Chronic pain of both knees Gastro-esophageal reflux disease without esophagitis Right testicular pain Calculus of kidney Fracture of arm Abdominal pain of unknown etiology Adhesive tendinitis Male erectile dysfunction, unspecified Abscess, dental Migraine Intervertebral disc disorders with radiculopathy, lumbar region Acute bilateral knee pain Acute left-sided low back pain Other rn long term care (current) drug therapy Type 2 diabetes mellitus with diabetic neuropathy, unspecified Patient continues to have neuropathy symptoms Aortic valvar stenosis Nicotine dependence, unspecified, uncomplicated Fracture of wrist Surgical History History of PTCA S/P tendon repair H/O hernia repair H/O umbilical hernia repair H/O knee surgery Family History Mother , Metastasis Cancer Hypertension Stomach ulcer Arthritis Father , Gunshot Hypertension Sister Clotting disorder Grandmother CAD (coronary artery disease) Cancer Stroke Grandfather CAD (coronary artery disease) Cancer Family/Other Suicide Other Heart disease Denies family history of Diabetes Dementia Chronic kidney disease (CKD) Anesthesia complication Bleeding disorder Lung disease Social History Smoking and tobacco/nicotine status: current every day tobacco/nicotine user cigarettes Packs smoked per day: 1.5 Years cigarettes smoked: 35 Alcohol intake: former Year of sobriety/quit date alcohol: 2014 Substance/Drug Use: never Lives independently: Yes Household members: none Marital status: Legally Current occupational status: disabled Do you think of yourself as: Straight/Heterosexual Current gender identity: Male Vitals/I&O/Wt Last Vital Signs Temp 98.4 F 09/26/24 10:37 Pulse 115 H 09/26/24 10:37 Resp 17 09/26/24 10:37 BP 112/82 09/26/24 10:37 Pulse Ox 100 09/26/24 10:37 O2 Del Method Room Air 09/26/24 10:37 Physical Exam Narrative: General : Patient is well developed , no acute distress, oriented x3 Head : Normal cephalic, a-traumatic. Ears : Pinnae and external canal are normal. Hearing is normal. Eyes : PERRLA, Sclera and injection are normal. No conjunctival discharge. Nose : Mucous membranes are without erythema. Throat : buccal mucosa is normal, gums are without significant recession or hypertrophy. Lungs : Equal chest rise bilaterally, no use of accessory muscles, trachea is midline. Cor : Rate and rhythm are normal. Abdomen : Soft, ND, NT, no g/r/m Extremities : Right leg wound without any significant erythema or exudate. There is sporadic fibrinous tissue in the wound but no signs of acute infection Back : non-tender to palpation, no CVA tenderness. Neuro : CN II - XII intact, Upper and lower extremities have equal and full strength Data 09/26/24 10:45 09/26/24 10:45 A&P Assessment and plan (1) Arterial embolism and thrombosis of lower extremity: (2) Critical limb ischemia of right lower extremity: (3) PAD (peripheral artery disease): Plan Status post sharp excisional debridement right lower extremity and wound VAC placement Recommend switching from wound VAC therapy to bandages. Wash with soap and water and then apply Santyl daily to fibrinous tissue and cover with dry gauze dressings once daily No acute surgical intervention Follow-up with his primary surgeon, Dr. Mazariegos, as an outpatient Coding Level of Care Code 91261 Diagnoses Arterial embolism and thrombosis of lower extremity I74.3 Critical limb ischemia of right lower extremity I70.221 PAD (peripheral artery disease) I73.9
[2024-09-26] MEDS: collagenase oint 30 gm 1 APPLIC TOPICAL (12:10)
[2024-09-26] MEDS: morphine 4 mg/mL SDV 1 mL IVP (12:37)
[2024-09-26 12:51] VITALS: BP 101/63; PULSE 110; O2SAT 99
== END 2024-09-26 12:51 | disposition home or self-care (01) ==
PROVIDERS: Emergency Provider Family Medicine; PCP Internal Medicine
DX: E11.51 Type 2 diabetes mellitus with diabetic peripheral angiopathy without gangrene (principal); I73.9 Peripheral vascular disease, unspecified; I25.5 Ischemic cardiomyopathy; Z79.01 Long term (current) use of anticoagulants; Z79.4 Long term (current) use of insulin; F17.210 Nicotine dependence, cigarettes, uncomplicated; J44.9 Chronic obstructive pulmonary disease, unspecified; E78.2 Mixed hyperlipidemia; I11.0 Hypertensive heart disease with heart failure; I50.9 Heart failure, unspecified
CPT/HCPCS: 36415; 80053; 85025; 96374; 99284; J2270

== ENCOUNTER → 2024-10-03 14:45 | Outpatient (BNVA) | payer MEDICARE, MEDICAID, SELFPAY | PROVIDERS: PCP Internal Medicine; Visit Provider Podiatrist Foot & Ankle Surgery | DX: B35.1 Tinea unguium (principal); E11.40 Type 2 diabetes mellitus with diabetic neuropathy, unspecified; E11.69 Type 2 diabetes mellitus with other specified complication; Z79.4 Long term (current) use of insulin; I73.9 Peripheral vascular disease, unspecified; G62.9 Polyneuropathy, unspecified; L84 Corns and callosities | CPT/HCPCS: 11056; 11721 ==

== ENCOUNTER 2024-10-06 11:36 | Emergency (ER) | payer MEDICARE, MEDICAID, SELFPAY ==
[2024-10-06] VITALS (8 sets, daily range): BP systolic 85–103; BP diastolic 51–76; PULSE 120–129; RESP 16–22; TEMP 36.8; O2SAT 89–100; BMI 33.1
--- NOTE | 2024-10-06 11:45 | XR_ITS ---
WS: [id number] Right foot, 3 views, 10/06/2024 Clinical Data: wound Comparison: None. Findings: No fractures or dislocations are seen. No bone destruction or erosion is noted. The joint spaces and soft tissues are normal. There is a plantar spur and an Achilles spur. XR/XR foot RT min 3V* [id number] Impression: Negative right foot.
--- NOTE | 2024-10-06 11:45 | XR_ITS ---
WS: [id number] Portable AP upright chest, 10/06/2024 Clinical Data: Possible Sepsis Comparison: Portable chest, 09/05/2024 Findings: No nodules, masses or effusions are seen. The heart is enlarged. The pulmonary vascularity is not increased. No pneumonia or pneumothorax is seen. There are recording devices overlying the car diac silhouette in the upper abdomen. XR/XR chest 1V portable [id number] Impression: Cardiomegaly.
--- NOTE | 2024-10-06 12:06 | USR_ITS ---
PROCEDURE INFORMATION: Exam: US Duplex Right Lower Extremity Arteries Or Arterial Bypass Grafts Exam date and time: 10/06/2024 12:36 PM Age: 59 years old Clinical indication: Pain; Leg, lower; Right; Additional info: Leg pain TECHNIQUE: Imaging protocol: Right Real-time duplex scan of the arteries or arterial bypass grafts of the right lower extremity with 2-D temple scale, color Doppler flow and spectral waveform analysis. Images documented and saved. COMPARISON: [place] [id number] 08/31/2024 2:12 PM COMPARISON MORE: CT angio abd aorta runof [id number] 09/01/2024 9:53 AM FINDINGS: Right common femoral artery: Grossly patent. Abnormal monophasic waveform. Right superficial femoral artery: Sonographically grossly patent. Abnormal monophasic waveform. Right popliteal artery: Grossly patent. Abnormal monophasic waveform. Right calf/foot arteries: Grossly patent. Abnormal monophasic waveform. Soft tissues: No hematoma or collection. US/[place] [id number] IMPRESSION: Redemonstrated abnormal arterial waveforms in the right lower extremity suggestive of hemodynamically significant stenosis.
--- NOTE | 2024-10-06 12:08 | ED_ITS ---
HPI - Extremity Problem 2 General: Chief complaint: Extremity Problem,Nontraumatic Stated complaint: surgical site swelling right leg Time Seen by Provider: 10/06/24 11:38 Source: patient and EMS Mode of arrival: EMS Limitations: no limitations History of Present Illness: 59-year-old male with a history of a per ipheral artery disease also has a large wound to his right anterior fibula. Patient's had debridement to that wound he is followed with wound care patient seen wound care 2 days ago nursing was concerned today possible lack of pulses the foot and 1 have the wound evaluated again patient denies any pain has had no fever. Associated symptoms: Deny chest pain, fever(s) or rash Related Data Home Medications Medication Instructions Recorded Confirmed tamsulosin 0.4 mg capsule 0.4 mg PO DAILY 09/26/19 10/06/24 fluticasone propionate 50 1 spray intranasal DAILY 04/09/20 10/06/24 mcg/actuation nasal spray,suspension duloxetine 20 mg capsule,delayed 20 mg PO BID 06/23/22 10/06/24 release dapagliflozin propanediol 10 mg 10 mg PO DAILY 08/31/24 10/06/24 tablet (Farxiga) acetaminophen 325 mg tablet 650 mg PO Q6H PRN Pain 09/26/24 10/06/24 (Tylenol) bisacodyl 10 mg rectal suppository 10 mg NE DAILY PRN Constipation 09/26/24 10/06/24 (Dulcolax (bisacodyl)) budesonide 160 mcg-glycopyr 9 2 inh inhalation BID 09/26/24 10/06/24 mcg-formot 4.8 mcg/actuation HFA inhaler (Breztri Aerosphere) honey 80 % topical gel (MediHoney 1 applic topical DAILY 10/06/24 10/06/24 (honey)) insulin degludec 100 unit/mL (3 See Rx Instructions .Route .COMPLEX 10/06/24 10/06/24 mL) subcutaneous pen (Tresiba FlexTouch U-100 insulin) lidocaine 4 % topical cream 1 applic topical BID PRN Pain 10/06/24 10/06/24 morphine 15 mg immediate release 15 mg PO Q6H PRN Pain 10/06/24 10/06/24 tablet omeprazole 20 mg capsule,delayed 20 mg PO BID 10/06/24 10/06/24 release Previous Rx's Medication Instructions Recorded Diabetic shoes with 3 pairs of #1 ea 01/19/23 custom molded inserts blood-glucose meter,continuous #1 ea 07/01/23 (Dexcom G7 Pin Ticket Machine Operator) blood-glucose sensor (Dexcom G7 #9 ea 07/01/23 Sensor device) nitroglycerin 0.4 mg sublingual See Rx Instructions .Route 04/22/24 tablet .COMPLEX #50 tabs potassium chloride 10 mEq 10 meq PO DAILY #90 tabs 05/24/24 tablet,extended release(part/cryst) clopidogrel 75 mg tablet 75 mg PO DAILY #90 tabs 06/10/24 evolocumab 140 mg/mL subcutaneous 140 mg SUBCUT .q 2weeks #2 mL 06/15/24 pen injector (Repatha SureClick) apixaban 5 mg tablet (Eliquis) 5 mg PO BID@0900,2100 30 days #60 09/23/24 tabs furosemide 40 mg tablet 40 mg PO DAILY #180 tabs 09/23/24 gabapentin 300 mg capsule 300 mg PO Q12H 30 days #60 caps 09/23/24 insulin lispro 100 unit/mL See Rx Instructions .Route 09/23/24 subcutaneous solution (Humalog .COMPLEX #10 mL U-100 Insulin) isosorbide mononitrate 30 mg 15 mg (1/2 x 30 mg) PO DAILY 30 09/23/24 tablet,extended release 24 hr days #30 tabs nicotine 14 mg/24 hr daily 1 patch transdermal DAILY #28 ea 09/23/24 transdermal patch ranolazine 500 mg tablet,extended 500 mg PO DAILY 30 days #30 tabs 09/23/24 release,12 hr sacubitril 24 mg-valsartan 26 mg 1 tab PO DAILY 30 days #30 tabs 09/23/24 tablet (Entresto) sucralfate 1 gram tablet (Carafate) 1 g PO BID 4 weeks #56 tabs 09/23/24 Allergies Allergy/AdvReac Type Severity Reaction Status Date / Time No Known Allergies Allergy Verified 10/04/24 12:58 Review of Systems 2 Const: Denies: fever(s), chills, body aches or change in appetite ENMT: Denies: throat pain or dental pain Card: Denies: chest pain Resp: Denies: dyspnea GI: Denies: abdominal pain, nausea, vomiting or diarrhea Musc: Denies: neck pain or back pain Skin/Breast: Denies: rash Neuro: Denies: headache(s) PFSH ED 2 PFSH: Medical History Type 2 diabetes mellitus with other skin ulcer 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 Lower extremity edema Chronic venous insufficiency Chest pain, unspecified History of intravenous drug use in remission COPD (chronic obstructive pulmonary disease) Congestive heart failure Angina pectoris Hematuria, microscopic Acute pharyngitis, unspecified Hx of myocardial infarction Chronic low back pain Benign essential HTN Arthritis Encounter for long-term (current) use of NSAIDs Atypical chest pain Benign prostatic hyperplasia without lower urinary tract symptoms High blood pressure Hypercholesteremia Mixed hyperlipidemia Diabetes mellitus Long-term current use of opiate analgesic Pain management contract signed DDD (degenerative disc disease), lumbar Tobacco use disorder Smokes to calm his nerves Chronic pain of both knees Gastro-esophageal reflux disease without esophagitis Right testicular pain Calculus of kidney Fracture of arm Abdominal pain of unknown etiology Adhesive tendinitis Male erectile dysfunction, unspecified Abscess, dental Migraine Intervertebral disc disorders with radiculopathy, lumbar region Acute bilateral knee pain Acute left-sided low back pain Other halfway (current) drug therapy Type 2 diabetes mellitus with diabetic neuropathy, unspecified Patient continues to have neuropathy symptoms Aortic valvar stenosis Nicotine dependence, unspecified, uncomplicated Fracture of wrist Surgical History History of PTCA S/P tendon repair H/O hernia repair H/O umbilical hernia repair H/O knee surgery Family History Mother , Metastasis Cancer Hypertension Stomach ulcer Arthritis Father , Gunshot Hypertension Sister Clotting disorder Grandmother CAD (coronary artery disease) Cancer Stroke Grandfather CAD (coronary artery disease) Cancer Family/Other Suicide Other Heart disease Denies family history of Diabetes Dementia Chronic kidney disease (CKD) Anesthesia complication Bleeding disorder Lung disease Social History Smoking and tobacco/nicotine status: current every day tobacco/nicotine user Alcohol intake: former Year of sobriety/quit date alcohol: 2014 Substance/Drug Use: never Lives independently: No Housing: Snf Marital status: Legally Current occupational status: disabled Do you think of yourself as: Straight/Heterosexual Current gender identity: Male Physical Exam 2 Const: COMMON NORMALS: no acute distress, patient oriented x3 and healthy appearing HENMT: COMMON NORMALS: normocephalic and atraumatic HEAD & SCALP: n ormocephalic and atraumatic Neck/C-Spine: COMMON NORMALS: full ROM and supple Chest: COMMONS NORMALS: normal inspection of the chest Resp: COMMON NORMALS: normal respiratory effort, No retractions, No use of accessory muscles and clear to auscultation bilaterally AUSCULTATION: clear to auscultation bilaterally Cardio: COMMON NORMALS: regular rate, regular rhythm and No murmurs present (Cardio) RATE: regular rate RHYTHM: regular rhythm Extremity: COMMON NORMALS: full ROM NARRATIVE EXTREMITY EXAM: Large wound noted to right foot no necrosis at this time no erythema no foul- smelling drainage Neuro: COMMON NORMALS: patient oriented x3, moves all extremities and no focal motor deficits Psych: COMMON NORMALS: mental status grossly normal, Normal thought process present and cooperative THOUGHT PROCESS: Normal thought process present Skin: COMMON NORMALS: no rashes or lesions noted GENERAL SKIN EXAM: no rashes or lesions noted Course 2 Vital Signs: Vital signs: Vital Signs Temperature 98.2 F 10/06/24 11:39 Pulse Rate 126 H 10/06/24 14:18 Respiratory Rate 16 10/06/24 14:18 Blood Pressure 101/76 10/06/24 14:18 Pulse Oximetry 100 10/06/24 14:18 Oxygen Delivery Me thod Room Air 10/06/24 11:39 MDM - Extremity (Nontraumatic) Medical Decision Making Patient presents here with foot wound no signs of acute infections blood work here is normal ultrasound showed no acute arterial occlusion he stable for discharge follow-up PCP return if worsening. Medical Records I reviewed the patient's medical records. Lab Data I reviewed the patient's lab results. 10/06/24 12:28 10/06/24 12:28 Radiology Impressions Chest X-Ray 10/06/24 11:45 Impression: Cardiomegaly. Foot X-Ray 10/06/24 11:45 Impression: Negative right foot. Duplex Scan Lower Extremity Artery 10/06/24 12:06 IMPRESSION: Redemonstrated abnormal arterial waveforms in the right lower extremity suggestive of hemodynamically significant stenosis. Laboratory Results WBC 10.17 10^3/uL (3.29-11.43) 10/06/24 12: RBC 3.11 10^6/uL (3.85-5.65) L 10/06/24 12:28 Hgb 8.50 g/dL (11.27-16.99) L 10/06/24 12:28 Hct 28.0 % (37-53) L 10/06/24 12:28 MCV 90.0 fl (82-101) 10/06/24 12:28 MCH 27.3 pg (27-33) 10/06/24 12: MCHC 30.4 g/dL (30-55) 10/06/24 12: RDW 21.7 % (12.1-15.1) H 10/06/24 12:28 Plt Count 243 10^3/cmm (157-399) 10/06/24 12:28 MPV 9.8 fL (7.4-10.4) 10/06/24 12:28 Neut % (Auto) 76.2 % 10/06/24 12:28 Lymph % (Auto) 14.4 % 10/06/24 12: Gila % (Auto) 7.9 % 10/06/24 12: Eos % (Auto) 0.5 % 10/06/24 12: Baso % (Auto) 0.3 % 10/06/24 12:28 Neut # (Auto) 7.76 10^3/uL (1.8-7.7) H 10/06/24 12:28 Lymph # (Auto) 1.5 10^3/uL (0.8-4.8) 10/06/24 12:28 Gila # (Auto) 0.8 10^3/uL (0.2-0.9) 10/06/24 12: Eos # (Auto) 0.1 10^3/uL (0.0-0.8) 10/06/24 12:28 Baso # (Auto) 0.0 10^3/uL (0.0-0.1) 10/06/24 12:28 Nucleated RBC % (auto) 0.4 % 10/06/24 12:28 Nucleated RBCs # 0.0 /100WBC 10/06/24 12:28 ESR 42 mm/hr (0-10) H 10/06/24 12:28 Sodium 125 mmol/L (136-145) L 10/06/24 12:28 Potassium 5.4 mmol/L (3.5-5.1) H 10/06/24 12:28 Chloride 90 mmol/L (98-107) L 10/06/24 12:28 Carbon Dioxide 24 mmol/L (22-29) 10/06/24 12:28 Anion Gap 16.4 (5-19) 10/06/24 12:28 BUN 17 mg/dL (6-20) 10/06/24 12:28 Creatinine 0.7 mg/dL (0.7-1.2) 10/06/24 12:28 GFR Calculation 116.2 mL/min (90-130) 10/06/24 12:28 Glucose 113 mg/dL (65-115) 10/06/24 12:28 Calculated Osmolality 262 mOsm/kg (285-295) L 10/06/24 12:28 Lactic Acid 2.0 mmol/L (0.5-2.2) 10/06/24 12:28 Calcium 8.3 mg/dL (8.5-10.5) L 10/06/24 12:28 Total Bilirubin 0.6 mg/dL (0.15-1.2) 10/06/24 12:28 AST 20 U/L (0-40) 10/06/24 12:28 ALT 61 U/L (0-41) H 10/06/24 12:28 Alkaline Phosphatase 310 U/L (40-130) H 10/06/24 12:28 Total Protein 6.0 g/dL (6.6-8.7) L 10/06/24 12:28 Albumin 3.3 g/dL (3.5-5.2) L 10/06/24 12:28 Globulin 2.7 g/dL (1.3-4.6) 10/06/24 12:28 Urine Color Yellow (Yellow) 10/06/24 12:51 Urine Appearance Clear (CLEAR) 10/06/24 12:51 Urine pH 6.5 (5-7) 10/06/24 12:51 Ur Specific [place] 1.014 (1.005-1.030) 10/06/24 12:51 Urine Protein Negative (Negative) 10/06/24 12:51 Urine Glucose (UA) 3+ (Normal) H 10/06/24 12:51 Urine Ketones Negative (Negative) 10/06/24 12:51 Urine Blood Negative (Negative) 10/06/24 12:51 Urine Nitrate Negative (Negative) 10/06/24 12:51 Urine Bilirubin Negative (Negative) 10/06/24 12:51 Urine Urobilinogen 1.0 mg/dL (Negative) 10/06/24 12:51 Ur Leukocyte Esterase Negative (Negative) 10/06/24 12:51 Urine RBC 0-2 /hpf (0-2) 10/06/24 12:51 Urine WBC 0-5 /hpf (0-5) 10/06/24 12:51 Ur Squamous Epith Cells 0-5 /hpf (0-5) 10/06/24 12:51 Amorphous Sediment Not Reportable 10/06/24 12:51 Urine Bacteria None seen /hpf (NONE) 10/06/24 12:51 Hyaline Casts 0-4 /lpf H 10/06/24 12:51 All radiology interpretation(s) finalized by discharge Discharge Plan Discharge Patient Disposition: Home Clinical Impression: Leg wound, right Condition: Stable Prescriptions: No Action tamsulosin 0.4 mg capsule 0.4 mg PO DAILY fluticasone propionate 50 mcg/actuation spray,suspension 1 spray INTRANASAL DAILY clopidogrel 75 mg tablet 75 mg PO DAILY Qty: 90 3RF duloxetine 20 mg capsule,delayed release(DR/EC) 20 mg PO BID (DME) Diabetic shoes with 3 pairs of custom molded inserts See Rx Instructions .Route .MEDSUPPLY Qty: 1 0RF Rx Instructions: As directed HOME (DME) Dexcom G7 Sensor Device See Rx Instructions .Route Qty: 9 0RF Rx Instructions: As directed (DME) Dexcom G7 Pin Ticket Machine Operator Misc See Rx Instructions .Route Qty: 1 0RF Rx Instructions: As directed Repatha SureClick 140 mg/mL pen injector 140 mg SUBCUT .q 2weeks Qty: 2 3RF Hold Instructions: Resume on 10/28/24. nitroglycerin 0.4 mg tablet, sublingual See Rx Instructions .ROUTE .COMPLEX Qty: 50 5RF Dose Instruction: place one tab UNDER THE TONGUE every five minutes NEEDED FOR CHEST pain * max THREE doses * Rx Instructions: place one tab UNDER THE TONGUE every five minutes NEEDED FOR CHEST pain * max THREE doses * potassium chloride 10 mEq tablet,ER particles/crystals 10 meq PO DAILY Qty: 90 3RF dapagliflozin propanediol [Farxiga] 10 mg tablet 10 mg PO DAILY Rx Instructions: TAKE 1 TABLET BY MOUTH EVERY DAY isosorbide mononitrate 30 mg Tablet Extended Release 24 Hr 15 mg PO DAILY 30 Days Qty: 30 0RF gabapentin 300 mg Capsule 300 mg PO Q12H 30 Days Qty: 60 0RF insulin lispro [Humalog U-100 Insulin] 100 unit/mL Solution See Rx Instructions .ROUTE .COMPLEX Qty: 10 0RF Rx Instructions: Inject, subcut, 3 times daily, after meals, based on sliding scale provided Eliquis 5 mg Tablet 5 mg PO BID@0900,2100 30 Days Qty: 60 0RF nicotine 14 mg/24 hr Patch 24 Hour 1 patch transdermal DAILY Qty: 28 0RF sacubitril-valsartan [Entresto] 24-26 mg Tablet 1 tab PO DAILY 30 Days Qty: 30 0RF furosemide 40 mg tablet 40 mg PO DAILY Qty: 180 3RF ranolazine 500 mg tablet extended release 12 hr 500 mg PO DAILY 30 Days Qty: 30 0RF sucralfate [Carafate] 1 gram tablet 1 g PO BID 28 Days Qty: 56 0RF Breztri Aerosphere 160-9-4.8 mcg/actuation HFA aerosol inhaler 2 inh INHALATION BID acetaminophen [Tylenol] 325 mg Tablet 650 mg PO Q6H PRN (Reason: Pain) bisacodyl [Dulcolax (bisacodyl)] 10 mg Suppository 10 mg NE DAILY PRN (Reason: Constipation) lidocaine 4 % Cream 1 applic TOPICAL BID PRN (Reason: Pain) omeprazole 20 mg Capsule,Delayed Release(Dr/Ec) 20 mg PO BID morphine 15 mg Tablet 15 mg PO Q6H PRN (Reason: Pain) MediHoney (honey) 80 % Gel 1 applic TOPICAL DAILY insulin degludec [Tresiba FlexTouch U-100] 100 unit/mL (3 mL) insulin pen See Rx Instructions .ROUTE .COMPLEX Rx Instructions: INJECT 70 UNITS EVERY MORNING AND 30 UNITS EVERY EVENING Discharge Orders: Discharge ED (Routine); Ordered 10/06/24 Ordered By: Hardeep Prakash Referrals: Yusuf Rivera DO [Primary Care Provider] - Discharge Diet: Advance as tolerated Discharge Activity: Resume usual activity Patient Instructions: Wound Care (General) Coding Level of Care Code ED Information Technology Technician for Yee Ibrahim
[2024-10-06 12:48] LABS: Basophils % 0.3 %; Eosinophils # 0.1 10^3/uL (0.0-0.8); Eosinophils % 0.5 %; Lymphocytes # 1.5 10^3/uL (0.8-4.8); Lymphocytes % 14.4 %; Mean Corpuscular HGB Conc 30.4 g/dL (30-55); Mean Corpuscular Hemoglobin 27.3 pg (27-33); Mean Platelet Volume 9.8 fL (7.4-10.4); Monocytes # 0.8 10^3/uL (0.2-0.9); Monocytes % 7.9 %; Neutrophils # 7.76 10^3/uL (1.8-7.7); Neutrophils % 76.2 %; Nucleated Red Blood Cells % 0.4 %; Platelet Count 243 10^3/cmm (157-399); Red Blood Count 3.11 10^6/uL (3.85-5.65); Red Cell Distribution Width 21.7 % (12.1-15.1); White Blood Count 10.17 10^3/uL (3.29-11.43)
[2024-10-06 13:08] LABS: Bilirubin Urine Negative (Negative); Blood Urine Negative (Negative); Glucose Urine UA 3+ (Normal); Ketones Urine Negative (Negative); Leukocyte Esterase Urine Negative (Negative); Nitrate Urine Negative (Negative); Protein Urine Negative (Negative); Specific Gravity, Urine 1.014 (1.005-1.030); Urine Appearance Clear (CLEAR); Urine Color Yellow (Yellow); pH Urine 6.5 (5-7)
[2024-10-06 13:11] LABS: Add Urine Microscopic? YES; Bacteria Urine None Seen /hpf; Hyaline Casts Urine 0-4 /lpf; RBC Urine 0-2 /hpf (0-2); Squamous Epithelial Cell Urine 0-5 /hpf (0-5); WBC Urine 0-5 /hpf (0-5)
[2024-10-06 13:17] LABS: Alanine Aminotransferase 61 U/L (0-41); Albumin Level 3.3 g/dL (3.5-5.2); Alkaline Phosphatase 310 U/L (40-130); Anion Gap 16.4 (5-19); Aspartate Amino Transferase 20 U/L (0-40); Blood Urea Nitrogen 17 mg/dL (6-20); Calcium 8.3 mg/dL (8.5-10.5); Carbon Dioxide 24 mmol/L (22-29); Chloride 90 mmol/L (98-107); Creatinine Clr Calc Pharmacy 132.7229; Globulin 2.7 g/dL (1.3-4.6); Glomerular Filtration Rate 116.2 mL/min (90-130); Glucose 113 mg/dL (65-115); Osmolality Calculated 262 mOsm/kg (285-295); Potassium 5.4 mmol/L (3.5-5.1); Sodium 125 mmol/L (136-145); Total Bilirubin 0.6 mg/dL (0.15-1.2)
--- NOTE | 2024-10-06 13:34 | ECG_ITS ---
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 Measurements Intervals [place] Rate: 123 P: 247 CT: 198 QRS: 8 QRSD: 88 T: 120 QT: 280 QTc: 401 Interpretive Statements possible ECTOPIC ATRIAL TACHYCARDIA LOW QRS VOLTAGE IN EXTREMITY LEADS [QRS DEFLECTION < 0.5 mV IN LIMB LEADS] POSSIBLE INFERIOR MYOCARDIAL INFARCTION , PROBABLY OLD [30 ms Q WAVE IN II/aVF] ANTEROLATERAL MYOCARDIAL INFARCTION , OF INDETERMINATE AGE [40+ ms Q WAVE IN I/aVL/V3-V6] Compared to ECG 09/19/2024 17:26:19 Low QRS voltage now present Atrial flutter no longer present Myocardial infarct finding still present. Heavy baseline artifacts; Need to repeat the study. Electronically Signed On 10-06-2024 18:24:35 HOUSE WORKER by Michelle Rodriguez M.D. [email or web address]
[2024-10-06 13:43] LABS: Erythrocyte Sedimentation Rate 42 mm/hr (0-10)
== END 2024-10-06 14:55 | disposition home or self-care (01) ==
PROVIDERS: Emergency Provider Emergency Medicine; PCP Internal Medicine
DX: T81.89XA Other complications of procedures, not elsewhere classified, initial encounter (principal); X58.XXXA Exposure to other specified factors, initial encounter; Z79.01 Long term (current) use of anticoagulants; Z79.4 Long term (current) use of insulin; E11.40 Type 2 diabetes mellitus with diabetic neuropathy, unspecified; J44.9 Chronic obstructive pulmonary disease, unspecified; E78.5 Hyperlipidemia, unspecified; I50.9 Heart failure, unspecified
CPT/HCPCS: 36415; 71045; 73630; 80053; 81001; 83605; 85025; 85651; 87040; 93005; 93926; 99285; J7030

== ENCOUNTER → 2024-10-14 07:52 | Outpatient (BNVA) | payer MEDICARE, MEDICAID, SELFPAY | PROVIDERS: PCP Internal Medicine; Visit Provider Thoracic Surgery (Cardiothoracic Vascular Surgery) | DX: T81.31XD Disruption of external operation (surgical) wound, not elsewhere classified, subsequent encounter (principal); Y83.8 Other surgical procedures as the cause of abnormal reaction of the patient, or of later complication, without mention of misadventure at the time of the procedure; E11.52 Type 2 diabetes mellitus with diabetic peripheral angiopathy with gangrene; E11.621 Type 2 diabetes mellitus with foot ulcer; L97.411 Non-pressure chronic ulcer of right heel and midfoot limited to breakdown of skin; L97.421 Non-pressure chronic ulcer of left heel and midfoot limited to breakdown of skin; L89.013 Pressure ulcer of right elbow, stage 3 | CPT/HCPCS: 11042; 11043; 11046; 97597 ==

== ENCOUNTER → 2024-10-19 09:20 | Outpatient (BNVA) | payer MEDICARE, MEDICAID, SELFPAY | PROVIDERS: PCP Internal Medicine; Visit Provider Surgery | DX: Z09 Encounter for follow-up examination after completed treatment for conditions other than malignant neoplasm (principal); I99.8 Other disorder of circulatory system | CPT/HCPCS: 99214 ==

== ENCOUNTER → 2024-10-21 08:23 | Outpatient (BNVA) | payer MEDICARE, MEDICAID, SELFPAY | PROVIDERS: PCP Internal Medicine; Visit Provider Thoracic Surgery (Cardiothoracic Vascular Surgery) | DX: T81.31XD Disruption of external operation (surgical) wound, not elsewhere classified, subsequent encounter (principal); Y83.8 Other surgical procedures as the cause of abnormal reaction of the patient, or of later complication, without mention of misadventure at the time of the procedure; E11.52 Type 2 diabetes mellitus with diabetic peripheral angiopathy with gangrene; E11.621 Type 2 diabetes mellitus with foot ulcer; L97.411 Non-pressure chronic ulcer of right heel and midfoot limited to breakdown of skin; L97.421 Non-pressure chronic ulcer of left heel and midfoot limited to breakdown of skin; L98.492 Non-pressure chronic ulcer of skin of other sites with fat layer exposed | CPT/HCPCS: 11042; 11043; 11046; 97597; A6220 ==

== ENCOUNTER 2024-10-24 07:31 | Day surgery (SDC) | payer MEDICARE, MEDICAID, SELFPAY ==
[2024-10-24 08:10] LABS: Glucose Point of Care 87 mg/dL (70-110)
--- NOTE | 2024-10-24 08:28 | P.ANESASSM_ITS ---
Pre-Anesthetic Assessment Height/Weight: Height 1.73 m Operation Date: 10/24/24 09:10 Proposed Procedures p debridement of right lower extremity and possible wound vac 75539, I96, I99.8(Right) - Bienvenido Mazariegos MD Familial anesthetic complications: None Was Beta Tony taken within 24 hours: N/A Was Clonidine taken within 24 hours: N/A Last intake: > 8hrs Social No alcohol and No tobacco quit smoking in august Exam alert, oriented x 3, clear to auscultation bilaterally and regular rate & rhythm Airway Mallampati: Class IV Dentition: other (none) Pulmonary Asthma, Chronic Obstructive Pulmonary Disease and Sleep Apnea CV/HEM Coronary Artery Disease, Congestive Heart Failure, Hypertension, Myocardial Infarction and Peripheral Vascular Disease EF 32% GI Gastroesophageal Reflux Disease Metabolic Diabetes Mellitus Anesthetic Plan ASA status: 4 Anesthesia: MAC Risk of > 500 ml blood loss (7ml/kg in children): No Medications/Allergies Home Medications Medication Instructions Recorded Confirmed Last Taken Type tamsulosin 0.4 mg capsule 0.4 mg PO DAILY 09/26/19 10/24/24 10/23/24 History fluticasone propionate 50 1 spray intranasal DAILY 04/09/20 10/20/24 10/20/24 History mcg/actuation nasal spray,suspension duloxetine 20 mg capsule,delayed 20 mg PO BID 06/23/22 10/24/24 10/23/24 History release Diabetic shoes with 3 pairs of #1 ea 01/19/23 10/19/24 Unknown Rx custom molded inserts blood-glucose meter,continuous #1 ea 07/01/23 10/19/24 Unknown Rx (Dexcom G7 Drawing Tender) blood-glucose sensor (Dexcom G7 #9 ea 07/01/23 10/19/24 Unknown Rx Sensor device) nitroglycerin 0.4 mg sublingual See Rx Instructions .Route 04/22/24 10/20/24 Unknown Rx tablet .COMPLEX #50 tabs clopidogrel 75 mg tablet 75 mg PO DAILY #90 tabs 06/10/24 10/20/24 10/19/24 Rx evolocumab 140 mg/mL subcutaneous 140 mg SUBCUT .q 2weeks #2 mL 06/15/24 10/20/24 Unknown Rx pen injector (Amna [place]) insulin lispro 100 unit/mL See Rx Instructions .Route 09/23/24 10/24/24 10/23/24 Rx subcutaneous solution (Humalog .COMPLEX #10 mL U-100 Insulin) nicotine 14 mg/24 hr daily 1 patch transdermal DAILY #28 ea 09/23/24 10/24/24 10/23/24 Rx transdermal patch acetaminophen 325 mg tablet 650 mg PO Q6H PRN Pain 09/26/24 10/20/24 10/20/24 History (Tylenol) bisacodyl 10 mg rectal suppository 10 mg [place] DAILY PRN Constipation 09/26/24 10/20/24 Unknown History (Dulcolax (bisacodyl)) budesonide 160 mcg-glycopyr 9 2 inh inhalation BID 09/26/24 10/24/24 10/23/24 History mcg-formot 4.8 mcg/actuation HFA inhaler (Breztri Aerosphere) insulin degludec 100 unit/mL (3 See Rx Instructions .Route .COMPLEX 10/06/24 10/24/24 10/23/24 History mL) subcutaneous pen (Tresiba FlexTouch U-100 insulin) lidocaine 4 % topical cream 1 applic topical BID PRN Pain 10/06/24 10/20/24 10/06/24 History morphine 15 mg immediate release 15 mg PO Q6H PRN Pain 10/06/24 10/24/24 10/24/24 06:30 History tablet omeprazole 20 mg capsule,delayed 20 mg PO BID 10/06/24 10/24/24 10/23/24 History release furosemide 40 mg tablet 80 mg PO BID 10/24/24 10/24/24 10/23/24 History isosorbide mononitrate 30 mg 15 mg PO DAILY 10/24/24 10/24/24 10/23/24 History tablet,extended release 24 hr levofloxacin 750 mg tablet 750 mg PO DAILY 10/24/24 10/24/24 10/23/24 History potassium chloride 10 mEq 10 meq PO BID 10/24/24 10/24/24 10/23/24 History tablet,extended release(part/cryst) ranolazine 500 mg tablet,extended 500 mg PO BID 10/24/24 10/24/24 10/20/24 History release,12 hr sacubitril 24 mg-valsartan 26 mg 1 tab PO DAILY 10/24/24 10/24/2425 History tablet spironolactone 50 mg tablet 50 mg PO DAILY 10/24/24 10/24/24 10/23/24 History sucralfate 1 gram tablet 1 g PO BID 10/24/24 10/24/24 10/23/24 History Allergies Allergy/AdvReac Type Severity Reaction Status Date / Time No Known Allergies Allergy Verified 10/24/24 07:52 [facility] Anesthesia Medical History Type 2 diabetes mellitus with other skin ulcer 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 Lower extremity edema Chronic venous insufficiency Chest pain, unspecified History of intravenous drug use in remission COPD (chronic obstructive pulmonary disease) Congestive heart failure Angina pectoris Hematuria, microscopic Acute pharyngitis, unspecified Hx of myocardial infarction Chronic low back pain Benign essential HTN Arthritis Encounter for long-term (current) use of NSAIDs Atypical chest pain Benign prostatic hyperplasia without lower urinary tract symptoms High blood pressure Hypercholesteremia Mixed hyperlipidemia Diabetes mellitus Long-term current use of opiate analgesic Pain management contract signed DDD (degenerative disc disease), lumbar Tobacco use disorder Smokes to calm his nerves Chronic pain of both knees Gastro-esophageal reflux disease without esophagitis Right testicular pain Calculus of kidney Fracture of arm Abdominal pain of unknown etiology Adhesive tendinitis Male erectile dysfunction, unspecified Abscess, dental Migraine Intervertebral disc disorders with radiculopathy, lumbar region Acute bilateral knee pain Acute left-sided low back pain Other [facility] (current) drug therapy Type 2 diabetes mellitus with diabetic neuropathy, unspecified Patient continues to have neuropathy symptoms Aortic valvar stenosis Nicotine dependence, unspecified, uncomplicated Fracture of wrist Surgical History History of PTCA S/P tendon repair H/O hernia repair H/O umbilical hernia repair H/O knee surgery Family History Mother , Metastasis Cancer Hypertension Stomach ulcer Arthritis Father , Gunshot Hypertension Sister Clotting disorder Grandmother CAD (coronary artery disease) Cancer Stroke Grandfather CAD (coronary artery disease) Cancer Family/Other Suicide Other Heart disease Denies family history of Diabetes Dementia Chronic kidney disease (CKD) Anesthesia complication Bleeding disorder Lung disease Social History (Reviewed 10/19/24 @ 09:34 by ALICJA Cheung Smoking and tobacco/nicotine status: former use of tobacco/nicotine (2023) Alcohol intake: former Year of sobriety/quit date alcohol: 2014 Substance/Drug Use: never Lives independently: No Housing: Group Home Marital status: Legally Current occupational status: disabled Do you think of yourself as: Straight/Heterosexual Current gender identity: Male Data Anesthesia Cardiac Studies: Echocardiogram 09/01/24 Echocardiogram Limited Views 06/05/23 Echocardiogram Ultrasound 10/01/20 Sestamibi Stress Test (Cardiology) 09/16
--- NOTE | 2024-10-24 08:29 | P.HPUD_ITS ---
Surgery/Procedure H&P Update DATE OF PROCEDURE: October 24, 2024 DATE H&P PERFORMED: 10/19/24 H&P UPDATE INFORMATION: I have reviewed H&P completed within last 30 days, I have examined patient prior to procedure, No changes to prior documentation and H[place] is in [facility] [place] on date indicated PLANNED PROCEDURE: Operation Date: 10/24/24 09:10 Proposed Procedures p debridement of right lower extremity and possible wound vac 76048, I96, I99.8(Right) - Bienvenido Mazariegos MD
[2024-10-24 08:48] VITALS: BMI 35.1
[2024-10-24] MEDS: sodium chloride 0.9% 1,000 ML 30 ML IV (09:01)
[2024-10-24 09:12] LABS: Blood Urea Nitrogen 18 mg/dL (6-20); Calcium 8.1 mg/dL (8.5-10.5); Carbon Dioxide 29 mmol/L (22-29); Chloride 86 mmol/L (98-107); Creatinine Clr Calc Pharmacy 136.6075; Glomerular Filtration Rate 116.2 mL/min (90-130); Glucose 90 mg/dL (65-115); Osmolality Calculated 261 mOsm/kg (285-295); Sodium 125 mmol/L (136-145)
[2024-10-24 09:13] LABS: Anion Gap 15.2 (5-19); Potassium 5.2 mmol/L (3.5-5.1)
[2024-10-24] MEDS: ceFAZolin 2,000 mg SDV 2000 MG IVP (09:22)
[2024-10-24] MEDS: lidocaine 2% jelly 1 APPLIC/6 ML TUBE TOPICAL (10:34)
[2024-10-24] MEDS: lidocaine 2% jelly 1 APPLIC/6 ML TUBE 2 APPLIC TOPICAL (11:21)
[2024-10-24 12:04] VITALS: BP 87/54; PULSE 94; RESP 18; TEMP 36.3; O2SAT 100
[2024-10-24 12:09] VITALS: BP 85/61; PULSE 97; RESP 18; O2SAT 98
[2024-10-24 12:14] VITALS: BP 81/64; PULSE 109; RESP 18; O2SAT 97
[2024-10-24 12:18] VITALS: BP 85/57; PULSE 90; RESP 18; TEMP 36.3; O2SAT 94
[2024-10-24 12:20] VITALS: BP 104/70; PULSE 119; RESP 18; TEMP 36.6; O2SAT 97
--- NOTE | 2024-10-24 12:22 | P.OP_ITS ---
Operative Report Date of procedure: October 24, 2024 Pre-op diagnosis: Full-thickness wound of the right lower extremity Post-op diagnosis: Full-thickness wound of the right lower extremity Post-op findings: There was a full-thickness wound to the right lower extremity at the level of the anterolateral leg measuring 45 x 15 x 1 cm. The upper two thirds of the wound had good granulation tissue with some fibrinous material in between, it was in the lower third of the wound where there was no significant granulation tissue, there were exposed tendons and instructed to that there was necrotic fascia as well as significant slough in the distal portion. All of this was debrided Procedure done: Sharp excisional debridement of right lower extremity wound to the level of the fascia and muscle Implants: None Specimens removed/disposition: none Surgeon: Bienvenido Mazariegos MD Continuous Miner Operator: AISLINN OR Staff Estimated blood loss: 15 Complications: none apparent Brief History: 59-year-old male with severe peripheral regulatory disease who has history of right lower extremity debridement due to skin and subcutaneous tissue necrosis due to poor perfusion. Patient has been receiving care as outpatient but wound has failed to progress, he presents for surgical debridement and then he will continue outpatient follow-up. Procedure: Patient was brought into the OR, he was placed in a supine position. Moderate analgesia and sedation was given. The right lower extremity was prepped and draped in the usual sterile fashion. A timeout was conducted. When I was started my debridement with curette it was noted by the anesthesia team that no pulse oximeter was able to be identified. Therefore we will stop the procedure and patient was awaken, several different pulse oximeter probes were used until eventually with a forehead probe we were able to get a waveform. After discussion with the anesthesia team decision was at this point to also proceed with a right lower extremity nerve block as there was concern of proceeding with sedation with the patient with a weak pulse oximetry. Anesthesia team proceeded with a right lower extremity nerve block, I also soaked the wound on lidocaine gel to allow for local anesthesia. Once the block was completed we then reprepped and draped the right lower extremity. At this point I proceeded with sharp excisional debridement to the level of the fascia and muscle level of the lower third of the wound, this was done with a curette as well as with Metzenbaum scissors and a clamp. Patient tolerated well. Majority of devitalized tissue was able to be removed without causing significant injury to surrounding structures. I then proceeded to use a curette to remove the fibrinous tissue that was in between the areas of granulation in the upper third of the wound. Patient tolerated well. At the end of the procedure all the edges of the wound appeared healthy and bleeding, the upper two thirds of the wound showed very good granulation tissue which was healthy and the lower third of the wound showed no significant devitalized tissue. I then proceeded to achieve hemostasis. The wound was irrigated with saline and subsequently I did a wet-to-dry dressing cover with Kerlix and David bandage. At the end of the procedure all counts were correct the patient tolerated well the procedure and was transferred to the PACU in stable condition.
[2024-10-24 12:35] VITALS: BP 110/69; PULSE 115; RESP 17; TEMP 36.6; O2SAT 97
--- NOTE | 2024-10-24 13:31 | SUR.PHASEII ---
1254 Gypsy Ojeda CNA here to picker feeder patient to bring to [facility],report called to Jannteh,(nurse)
--- NOTE | 2024-10-24 13:33 | ANES.PROC ---
Anesthesia Procedures Procedure/Date: 10/24/24 Nerve Block ^: Nerve Block 1: Main Anesthesia: general anesthesia Time Out Performed: Yes Consent: patient agrees to proceed and emergency procedure Nerve block location: popliteal (L) Anesthesia monitors applied: pulse oximetry, EKG, BP cuff and oxygen Nerve block position: supine Anesthetic Used: ropivicaine 0.5% (30 ml) and with decadron Nerve Stimulator Used?: No Interscalene/Femoral BLK: 4 stimuplex 21 g needle used for position and inplane approach, visualize local anesthetic spread and no vascular puncture identified Injection: neg aspiration of heme Patient Tolerated Procedure: well Complications: none
--- NOTE | 2024-10-24 13:38 | SUR.PHASEII ---
[address] Mazariegos regarding prescription for antibiotic for home,pt already taking Levaquin and order given to not fill prescription here at hospital
--- NOTE | 2024-10-24 15:39 | ANE.PACU2 ---
Inpatient post-anesthesia follow up: Airway intact: Yes Vital signs: Temperature 97.8 F Pulse Rate 115 Respiratory Rate 17 Blood Pressure 110/69 Pulse Oximetry 97 Oxygen Delivery Me thod Room Air Oxygen Flow Rate Fraction of Inspir ed Oxygen Hydration adequate: Yes Nausea and vomiting: No Pain level: 1 Mental status: Baseline
== END 2024-10-24 12:50 | disposition home or self-care (01) ==
PROVIDERS: Anesthesiology; PCP Internal Medicine; Visit Provider Surgery
PROC: (CPT 11043; principal; 2024-10-24 09:00)
DX: E11.52 Type 2 diabetes mellitus with diabetic peripheral angiopathy with gangrene (principal); I96 Gangrene, not elsewhere classified; I99.8 Other disorder of circulatory system; S81.801A Unspecified open wound, right lower leg, initial encounter; E11.51 Type 2 diabetes mellitus with diabetic peripheral angiopathy without gangrene; E11.40 Type 2 diabetes mellitus with diabetic neuropathy, unspecified; Z79.4 Long term (current) use of insulin; R26.2 Difficulty in walking, not elsewhere classified; Z74.1 Need for assistance with personal care; I48.91 Unspecified atrial fibrillation; Z95.5 Presence of coronary angioplasty implant and graft; I25.119 Atherosclerotic heart disease of native coronary artery with unspecified angina pectoris; Z79.02 Long term (current) use of antithrombotics/antiplatelets; I13.0 Hypertensive heart and chronic kidney disease with heart failure and stage 1 through stage 4 chronic kidney disease, or unspecified chronic kidney disease; I50.43 Acute on chronic combined systolic (congestive) and diastolic (congestive) heart failure; I82.409 Acute embolism and thrombosis of unspecified deep veins of unspecified lower extremity; I35.0 Nonrheumatic aortic (valve) stenosis; J44.9 Chronic obstructive pulmonary disease, unspecified; J43.2 Centrilobular emphysema; Z79.51 Long term (current) use of inhaled steroids; G47.33 Obstructive sleep apnea (adult) (pediatric); M51.16 Intervertebral disc disorders with radiculopathy, lumbar region; K21.9 Gastro-esophageal reflux disease without esophagitis; N40.0 Benign prostatic hyperplasia without lower urinary tract symptoms; E66.9 Obesity, unspecified; N18.9 Chronic kidney disease, unspecified; Z87.891 Personal history of nicotine dependence; E78.2 Mixed hyperlipidemia; Z68.35 Body mass index [BMI] 35.0-35.9, adult; Z79.01 Long term (current) use of anticoagulants
CPT/HCPCS: 11043; 11046 ×19; 36415; 36416; 80048; 82962; J0690; J2371; J2704; J2795; J3010; J7030

== ENCOUNTER → 2024-10-28 08:18 | Outpatient (BNVA) | payer MEDICARE, MEDICAID, SELFPAY | PROVIDERS: PCP Internal Medicine; Visit Provider Thoracic Surgery (Cardiothoracic Vascular Surgery) | DX: T81.31XD Disruption of external operation (surgical) wound, not elsewhere classified, subsequent encounter (principal); Y83.8 Other surgical procedures as the cause of abnormal reaction of the patient, or of later complication, without mention of misadventure at the time of the procedure; E11.52 Type 2 diabetes mellitus with diabetic peripheral angiopathy with gangrene; E11.621 Type 2 diabetes mellitus with foot ulcer; L97.411 Non-pressure chronic ulcer of right heel and midfoot limited to breakdown of skin; L97.421 Non-pressure chronic ulcer of left heel and midfoot limited to breakdown of skin; S50.3 Other superficial injuries of elbow; X58.XXXD Exposure to other specified factors, subsequent encounter | CPT/HCPCS: 11042; 11043; 11046; 87070; 87075; 87205; 97597; 97606; A6220; A6237; A6250 ==

== ENCOUNTER → 2024-11-01 15:44 | Outpatient (BNVA) | payer MEDICARE, MEDICAID, SELFPAY | PROVIDERS: PCP Internal Medicine; Visit Provider Thoracic Surgery (Cardiothoracic Vascular Surgery) | DX: E11.622 Type 2 diabetes mellitus with other skin ulcer (principal); L97.813 Non-pressure chronic ulcer of other part of right lower leg with necrosis of muscle; E11.621 Type 2 diabetes mellitus with foot ulcer; L97.521 Non-pressure chronic ulcer of other part of left foot limited to breakdown of skin; L97.511 Non-pressure chronic ulcer of other part of right foot limited to breakdown of skin; L89.023 Pressure ulcer of left elbow, stage 3 | CPT/HCPCS: 97606 ==

== ENCOUNTER → 2024-11-04 10:54 | Outpatient (BNVA) | payer MEDICARE, MEDICAID, SELFPAY | PROVIDERS: PCP Internal Medicine; Visit Provider Thoracic Surgery (Cardiothoracic Vascular Surgery) | DX: E11.52 Type 2 diabetes mellitus with diabetic peripheral angiopathy with gangrene (principal); E11.621 Type 2 diabetes mellitus with foot ulcer; L97.421 Non-pressure chronic ulcer of left heel and midfoot limited to breakdown of skin; S50.3 Other superficial injuries of elbow; X58.XXXD Exposure to other specified factors, subsequent encounter; Z09 Encounter for follow-up examination after completed treatment for conditions other than malignant neoplasm | CPT/HCPCS: 11042; 11043; 11046; 97606; A6237; A6250 ==

== ENCOUNTER 2024-11-05 10:34 | Inpatient (IN) | payer MEDICARE, MEDICAID, SELFPAY ==
[2024-11-05] VITALS (36 sets, daily range): BP systolic 76–107; BP diastolic 46–76; PULSE 84–155; RESP 15–27; TEMP 36.3–37.1; O2SAT 90–98; BMI 29.1
--- NOTE | 2024-11-05 11:01 | ECG_ITS ---
[facility] Test Date: 2024-11-05 Pat Name: Yusuf Buck Department: Room: [facility] Gender: Male Quill Winder: : 1965 Requested By: Triston Woo Order Number: [id number] Reading MD: GEOFFREY PERDUE Measurements Intervals [place] Rate: 100 P: 0 CT: 0 QRS: 10 QRSD: 79 T: 145 QT: 285 QTc: 369 Interpretive Statements ATRIAL FIBRILLATION WITH RAPID VENTRICULAR RESPONSE ANTEROSEPTAL MYOCARDIAL INFARCTION , OF INDETERMINATE AGE [40+ ms Q WAVE IN V1-V4] MARKED ST ELEVATION, CONSIDER INFERIOR INJURY [MARKED ST ELEVATION W/O NORMALLY INFLECTED T-WAVE IN II/aVF] ACUTE MS Compared to ECG 10/06/2024 13:34:26 ST (T wave) deviation now present Myocardial infarct finding still present Electronically Signed On 11-06-2024 20:59:22 AVIATION SUPPORT EQUIPMENT REPAIRER by GEOFFREY PERDUE [email or web address]
--- NOTE | 2024-11-05 11:05 | XRR_ITS ---
PROCEDURE INFORMATION: Exam: XR Chest Exam date and time: 11/05/2024 11:26 AM Age: 59 years old Clinical indication: Other: Hypotension; Prior surgery; Surgery date: 6+ months; Surgery type: Coronary stent TECHNIQUE: Imaging protocol: Radiologic exam of the chest. Views: 1 view. COMPARISON: CR XR chest 1V portable [id number] 10/06/2024 11:52 AM FINDINGS: Tubes, catheters and devices: Recording devices overlying the cardiac silhouette. Lungs: Unremarkable. No consolidation. Pleural spaces: Unremarkable. No pleural effusion. No pneumothorax. Heart/Mediastinum: The heart is enlarged. Bones/joints: Moderate degenerative disease of bilateral acromioclavicular joints. There are mild degenerative changes of the glenohumeral joint. XR/XR chest 1V portable [id number] IMPRESSION: No acute cardiopulmonary process.
--- NOTE | 2024-11-05 11:08 | W.ED.RECABL ---
HPI - Recheck/Abnormal Lab/Rx General: Chief Complaint: Recheck/Abnormal Lab/Rx Stated Complaint: critical labs at [place]; hypotension Time Seen by Provider: 11/05/24 11:04 History of Present Illness: 59-year-old male presents emergency room with from a local retirement with report of abnormal laboratory studies. He is reported to have had hyponatremia and hyperkalemia on most recent lab draw. Reported potassium was 6. He has multiple MRSA lesions 1 in his right lower leg and another on his left elbow. He is currently on Bactrim for these and has been following up with the wound clinic no fever sweats chills chest or abdominal pain no flulike symptoms. Patient states he feels fine other than the reported abnormal laboratory studies. Related Data Home Medications ?Medication ?Instructions ?Recorded ?Confirmed fluticasone propionate 50 1 spray intranasal DAILY 04/09/20 11/05/24 mcg/actuation nasal spray,suspension duloxetine 20 mg capsule,delayed 20 mg PO BID 06/23/22 11/05/24 release acetaminophen 325 mg tablet 650 mg PO Q6H PRN Pain 09/26/24 11/05/24 (Tylenol) bisacodyl 10 mg rectal suppository 10 mg ME DAILY PRN Constipation 09/26/24 11/05/24 (Dulcolax (bisacodyl)) budesonide 160 mcg-glycopyr 9 2 inh inhalation BID 09/26/24 11/05/24 mcg-formot 4.8 mcg/actuation HFA inhaler (Breztri Aerosphere) insulin degludec 100 unit/mL (3 10 unit SUBCUT QPM 10/06/24 11/05/24 mL) subcutaneous pen (Tresiba FlexTouch U-100 insulin) omeprazole 20 mg capsule,delayed 20 mg PO BID 10/06/24 11/05/24 release isosorbide mononitrate 30 mg 15 mg PO DAILY 10/24/24 11/05/24 tablet,extended release 24 hr potassium chloride 10 mEq 10 meq PO DAILY 10/24/24 11/05/24 tablet,extended release(part/cryst) ranolazine 500 mg tablet,extended 500 mg PO DAILY 10/24/24 11/05/24 release,12 hr sacubitril 24 mg-valsartan 26 mg 1 tab PO DAILY 10/24/24 11/05/24 tablet spironolactone 50 mg tablet 50 mg PO DAILY 10/24/24 11/05/24 apixaban 5 mg tablet (Eliquis) 5 mg PO BID 11/05/24 11/05/24 furosemide 40 mg tablet 40 mg PO DAILY 11/05/24 11/05/24 gabapentin 300 mg capsule 300 mg PO BID 11/05/24 11/05/24 hydrocodone 10 mg-acetaminophen 1 tab PO Q6H PRN Pain 11/05/24 11/05/24 325 mg tablet lidocaine HCl 2 % mucosal jelly in 1 - 2 applic mucous membrane 11/05/24 11/05/24 applicator .EVERY SHIFT menthol 0.44 %-zinc oxide 20.6 % 1 applic topical .EVERY SHIFT PRN 11/05/24 11/05/24 topical ointment (Calmoseptine) Pain morphine 15 mg immediate release 30 mg PO Q6H PRN Pain 11/05/24 11/05/24 tablet morphine 30 mg immediate release 30 mg PO Q6H PRN Pain 11/05/24 11/05/24 tablet morphine concentrate 100 mg/5 mL 20 mg PO BID 11/05/24 11/05/24 (20 mg/mL) oral solution sulfamethoxazole 800 1 tab PO BID 11/05/24 11/05/24 mg-trimethoprim 160 mg tablet (Bactrim DS) tamsulosin 0.4 mg capsule 0.4 mg PO DAILY 11/05/24 11/05/24 white petrolatum 41 % topical 1 applic topical Q12H 11/05/24 11/05/24 ointment (Aquaphor Original) Previous Rx's ?Medication ?Instructions ?Recorded Diabetic shoes with 3 pairs of #1 ea 01/19/23 custom molded inserts blood-glucose meter,continuous #1 ea 07/01/23 (Dexcom G7 Production Potter) blood-glucose sensor (Dexcom G7 #9 ea 07/01/23 Sensor device) nitroglycerin 0.4 mg sublingual See Rx Instructions .Route 04/22/24 tablet .COMPLEX #50 tabs evolocumab 140 mg/mL subcutaneous 140 mg SUBCUT .q 2weeks #2 mL 06/15/24 pen injector (Amna Cisneros) insulin lispro 100 unit/mL See Rx Instructions .Route 09/23/24 subcutaneous solution (Humalog .COMPLEX #10 mL U-100 Insulin) nicotine 14 mg/24 hr daily 1 patch transdermal DAILY #28 ea 09/23/24 transdermal patch clopidogrel 75 mg tablet 75 mg PO DAILY #90 tabs 10/25/24 Allergies Allergy/AdvReac Type Severity Reaction Status Date / Time No Known Allergies Allergy Verified 10/24/24 07:52 Review of Systems Const: Denies: fever(s) or chills Card: Denies: chest pain Resp: Denies: dyspnea GI: Denies: abdominal pain : Denies: dysuria, urinary frequency or urinary urgency Musc: Denies: neck pain or back pain Skin/Breast: Denies: rash 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 Lower extremity edema Chronic venous insufficiency Chest pain, unspecified History of intravenous drug use in remission COPD (chronic obstructive pulmonary disease) Congestive heart failure Angina pectoris Hematuria, microscopic Acute pharyngitis, unspecified Hx of myocardial infarction Chronic low back pain Benign essential HTN Arthritis Encounter for long-term (current) use of NSAIDs Atypical chest pain Benign prostatic hyperplasia without lower urinary tract symptoms High blood pressure Hypercholesteremia Mixed hyperlipidemia Diabetes mellitus Long-term current use of opiate analgesic Pain management contract signed DDD (degenerative disc disease), lumbar Tobacco use disorder Smokes to calm his nerves Chronic pain of both knees Gastro-esophageal reflux disease without esophagitis Right testicular pain Calculus of kidney Fracture of arm Abdominal pain of unknown etiology Adhesive tendinitis Male erectile dysfunction, unspecified Abscess, dental Migraine Intervertebral disc disorders with radiculopathy, lumbar region Acute bilateral knee pain Acute left-sided low back pain 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 Type 2 diabetes mellitus with diabetic neuropathy, unspecified Patient continues to have neuropathy symptoms Aortic valvar stenosis Nicotine dependence, unspecified, uncomplicated Fracture of wrist Surgical History History of PTCA S/P tendon repair H/O hernia repair H/O umbilical hernia repair H/O knee surgery Family History Mother , Metastasis Cancer Hypertension Stomach ulcer Arthritis Father , Gunshot Hypertension Sister Clotting disorder Grandmother CAD (coronary artery disease) Cancer Stroke Grandfather CAD (coronary artery disease) Cancer Family/Other Suicide Other Heart disease Denies family history of Diabetes Dementia Chronic kidney disease (CKD) Anesthesia complication Bleeding disorder Lung disease Social History Smoking and tobacco/nicotine status: former use of tobacco/nicotine (2023) Alcohol intake: former Year of sobriety/quit date alcohol: 2014 Substance/Drug Use: never Lives independently: No Housing: Snf Marital status: Legally Current occupational status: disabled Do you think of yourself as: Straight/Heterosexual Current gender identity: Male Physical Exam Const: COMMON NORMALS: no acute distress GENERAL APPEARANCE: cooperative and comfortable ORIENTATION/CONSCIOUSNESS: Yes awake, Yes oriented to person, Yes oriented to place and Yes oriented to time HENMT: COMMON NORMALS: normocephalic, atraumatic and hearing grossly normal bilaterally HEAD & SCALP: normocephalic and atraumatic Resp: COMMON NORMALS: normal respiratory effort, No retractions, No use of accessory muscles and clear to auscultation bilaterally AUSCULTATION: clear to auscultation bilaterally Cardio: COMMON NORMALS: regular rate, regular rhythm and No murmurs present (Cardio) RATE: regular rate RHYTHM: regular rhythm GI: COMMON NORMALS: Soft to palpation and No hepatosplenomegaly present AUSCULTATION: Yes normoactive bowel sounds PALPATION: Yes Soft to palpation, No Tenderness to palpation present (GI), No Guarding due to palpation present (GI) and Yes No hepatosplenomegaly present Extremity: OTHER: Right lower leg wound VAC in place was not removed there is no localized erythema. Left elbow has a bulky Kerlix dressing. Nontender no erythema on the upper arm or the forearm. Neuro: SENSORIUM/ORIENTATION: Yes oriented to person, Yes oriented to place and Yes oriented to time Skin: COMMON NORMALS: no rashes or lesions noted GENERAL SKIN EXAM: no rashes or lesions noted Course Vital Signs: Vital signs: Vital Signs Temperature 97.4 F L 11/05/24 10:53 Pulse Rate 112 H 11/05/24 12:14 Respiratory Rate 16 11/05/24 12:14 Blood Pressure 97/74 11/05/24 12:14 Pulse Oximetry 95 11/05/24 12:14 Oxygen Delivery Me thod Room Air 11/05/24 10:53 MDM - Recheck/Abnormal Lab/Rx Medical Decision Making Verified to hyponatremia and hyperkalemia. Patient is diabetic we will give him D 10 as well as 250 of NS over an hour. Cautious with fluids because of his cardiomyopathy. The other hyperkalemia treatments were instituted as well discussed with hospitalist will admit. Suspect potassium supplementation Lasix and Bactrim played a role in developing hyperkalemia. Lab Data 11/05/24 11:13 11/05/24 11:13 Radiology Impressions Chest X-Ray 11/05/24 11:05 IMPRESSION: No acute cardiopulmonary process. Laboratory Results WBC 8.41 10^3/uL (3.29-11.43) 11/05/24 11:13 RBC 3.64 10^6/uL (3.85-5.65) L 11/05/24 11:13 Hgb 9.50 g/dL (11.27-16.99) L 11/05/24 11:13 Hct 30.9 % (37-53) L 11/05/24 11:13 MCV 84.9 fl (82-101) 11/05/24 11:13 MCH 26.1 pg (27-33) L 11/05/24 11:13 MCHC 30.7 g/dL (30-55) 11/05/24 11:13 RDW 17.3 % (12.1-15.1) H 11/05/24 11:13 Plt Count 221 10^3/cmm (157-399) 11/05/24 11:13 MPV 9.1 fL (7.4-10.4) 11/05/24 11:13 Neut % (Auto) 76.1 % 11/05/24 11:13 Lymph % (Auto) 12.2 % 11/05/24 11:13 [place] % (Auto) 8.4 % 11/05/24 11:13 Eos % (Auto) 1.4 % 11/05/24 11:13 Baso % (Auto) 0.8 % 11/05/24 11:13 Neut # (Auto) 6.39 10^3/uL (1.8-7.7) 11/05/24 11:13 Lymph # (Auto) 1.0 10^3/uL (0.8-4.8) 11/05/24 11:13 [place] # (Auto) 0.7 10^3/uL (0.2-0.9) 11/05/24 11:13 Eos # (Auto) 0.1 10^3/uL (0.0-0.8) 11/05/24 11:13 Baso # (Auto) 0.1 10^3/uL (0.0-0.1) 11/05/24 11:13 Nucleated RBC % (auto) 0 % 11/05/24 11:13 Nucleated RBCs # 0.0 /100WBC 11/05/24 11:13 Sodium 120 mmol/L (136-145) L 11/05/24 11:13 Potassium 6.6 mmol/L (3.5-5.1) H* 11/05/24 11:13 Chloride 85 mmol/L (98-107) L 11/05/24 11:13 Carbon Dioxide 25 mmol/L (22-29) 11/05/24 11:13 Anion Gap 16.6 (5-19) 11/05/24 11:13 BUN 26 mg/dL (6-20) H 11/05/24 11:13 Creatinine 0.9 mg/dL (0.7-1.2) 11/05/24 11:13 GFR Calculation 87.0 mL/min (90-130) L 11/05/24 11:13 Glucose 109 mg/dL (65-115) 11/05/24 11:13 Calculated Osmolality 255 mOsm/kg (285-295) L 11/05/24 11:13 Lactic Acid 1.5 mmol/L (0.5-2.2) 11/05/24 11:13 Calcium 8.7 mg/dL (8.5-10.5) 11/05/24 11:13 Magnesium 2.2 mg/dL (1.7-2.3) 11/05/24 11:13 Total Bilirubin 0.5 mg/dL (0.15-1.2) 11/05/24 11:13 AST 15 U/L (0-40) 11/05/24 11:13 ALT 12 U/L (0-41) 11/05/24 11:13 Alkaline Phosphatase 218 U/L (40-130) H 11/05/24 11:13 Creatine Kinase 29 U/L (39-308) L 11/05/24 11:13 Total Protein 7.4 g/dL (6.6-8.7) 11/05/24 11:13 Albumin 3.5 g/dL (3.5-5.2) 11/05/24 11:13 Globulin 3.9 g/dL (1.3-4.6) 11/05/24 11:13 All radiology interpretation(s) finalized by discharge Discharge Plan Discharge Patient Disposition: Admitted As Inpatient Clinical Impression: Hyperkalemia, Hyponatremia Condition: Stable Prescriptions: No Action fluticasone propionate 50 mcg/actuation spray,suspension 1 spray INTRANASAL DAILY duloxetine 20 mg capsule,delayed release(DR/EC) 20 mg PO BID (DME) Diabetic shoes with 3 pairs of custom molded inserts See Rx Instructions .Route .MEDSUPPLY Qty: 1 0RF Rx Instructions: As directed HOME (DME) Dexcom G7 Sensor Device See Rx Instructions .Route Qty: 9 0RF Rx Instructions: As directed (DME) Dexcom G7 Production Potter Misc See Rx Instructions .Route Qty: 1 0RF Rx Instructions: As directed Repatha SureClick 140 mg/mL pen injector 140 mg SUBCUT .q 2weeks Qty: 2 3RF nitroglycerin 0.4 mg tablet, sublingual See Rx Instructions .ROUTE .COMPLEX Qty: 50 5RF Dose Instruction: place one tab UNDER THE TONGUE every five minutes NEEDED FOR CHEST pain * max THREE doses * Rx Instructions: place one tab UNDER THE TONGUE every five minutes NEEDED FOR CHEST pain * max THREE doses * clopidogrel 75 mg tablet 75 mg PO DAILY Qty: 90 3RF insulin lispro [Humalog U-100 Insulin] 100 unit/mL Solution See Rx Instructions .ROUTE .COMPLEX Qty: 10 0RF Rx Instructions: Inject, subcut, 3 times daily, based on sliding scale provided if blood sugar is less that 60 call 201-250 =2 251-300=4 301-350=6 351-400 Blood sugar over 400 call nicotine 14 mg/24 hr Patch 24 Hour 1 patch transdermal DAILY Qty: 28 0RF Breztri Aerosphere 160-9-4.8 mcg/actuation HFA aerosol inhaler 2 inh INHALATION BID acetaminophen [Tylenol] 325 mg Tablet 650 mg PO Q6H PRN (Reason: Pain) bisacodyl [Dulcolax (bisacodyl)] 10 mg Suppository 10 mg ME DAILY PRN (Reason: Constipation) omeprazole 20 mg Capsule,Delayed Release(Dr/Ec) 20 mg PO BID insulin degludec [Tresiba FlexTouch U-100] 100 unit/mL (3 mL) insulin pen 10 unit SUBCUT QPM isosorbide mononitrate 30 mg Tablet Extended Release 24 Hr 15 mg PO DAILY spironolactone 50 mg Tablet 50 mg PO DAILY sacubitril-valsartan 24-26 mg Tablet 1 tab PO DAILY potassium chloride 10 mEq tablet,ER particles/crystals 10 meq PO DAILY ranolazine 500 mg tablet extended release 12 hr 500 mg PO DAILY morphine concentrate 100 mg/5 mL (20 mg/mL) solution 20 mg PO BID Rx Instructions: administer 1ml by mouth 30 minutes prior to leaving for wound care treatment sulfamethoxazole-trimethoprim [Bactrim DS] 800-160 mg Tablet 1 tab PO BID hydrocodone-acetaminophen 10-325 mg Tablet 1 tab PO Q6H PRN (Reason: Pain) morphine 30 mg Tablet 30 mg PO Q6H PRN (Reason: Pain) gabapentin 300 mg Capsule 300 mg PO BID Aquaphor Original 41 % ointment 1 applic TOPICAL Q12H lidocaine HCl 2 % jelly in applicator 1 - 2 applic mucous membrane .EVERY SHIFT menthol-zinc oxide [Calmoseptine] 0.44-20.6 % Ointment 1 applic TOPICAL .EVERY SHIFT PRN (Reason: Pain) Eliquis 5 mg Tablet 5 mg PO BID furosemide 40 mg tablet 40 mg PO DAILY morphine 15 mg tablet 30 mg PO Q6H PRN (Reason: Pain) tamsulosin 0.4 mg capsule 0.4 mg PO DAILY Referrals: Yusuf Rivera DO [Primary Care Provider] - Print Language: Persian Coding Level of Care Code ED [facility]ile Collector for Yee Ibrahim
[2024-11-05 11:20] LABS: Basophils # 0.1 10^3/uL (0.0-0.1); Basophils % 0.8 %; Eosinophils # 0.1 10^3/uL (0.0-0.8); Eosinophils % 1.4 %; Hematocrit 30.9 % (37-53); Lymphocytes % 12.2 %; Mean Corpuscular HGB Conc 30.7 g/dL (30-55); Mean Corpuscular Hemoglobin 26.1 pg (27-33); Mean Corpuscular Volume 84.9 fl (82-101); Mean Platelet Volume 9.1 fL (7.4-10.4); Monocytes # 0.7 10^3/uL (0.2-0.9); Monocytes % 8.4 %; Neutrophils # 6.39 10^3/uL (1.8-7.7); Neutrophils % 76.1 %; Nucleated Red Blood Cells % 0 %; Platelet Count 221 10^3/cmm (157-399); Red Blood Count 3.64 10^6/uL (3.85-5.65); Red Cell Distribution Width 17.3 % (12.1-15.1); White Blood Count 8.41 10^3/uL (3.29-11.43)
[2024-11-05 11:38] LABS: Alanine Aminotransferase 12 U/L (0-41); Albumin Level 3.5 g/dL (3.5-5.2); Alkaline Phosphatase 218 U/L (40-130); Anion Gap 16.6 (5-19); Aspartate Amino Transferase 15 U/L (0-40); Blood Urea Nitrogen 26 mg/dL (6-20); Calcium 8.7 mg/dL (8.5-10.5); Carbon Dioxide 25 mmol/L (22-29); Chloride 85 mmol/L (98-107); Creatine Phosphokinase 29 U/L (39-308); Creatinine Clr Calc Pharmacy 103.2781; Globulin 3.9 g/dL (1.3-4.6); Glucose 109 mg/dL (65-115); Magnesium 2.2 mg/dL (1.7-2.3); Osmolality Calculated 255 mOsm/kg (285-295); Sodium 120 mmol/L (136-145); Total Bilirubin 0.5 mg/dL (0.15-1.2); Total Protein 7.4 g/dL (6.6-8.7)
[2024-11-05 11:39] LABS: Lactic Sepsis W/Reflex 1.5 mmol/L (0.5-2.2)
[2024-11-05 11:41] LABS: Potassium 6.6 mmol/L (3.5-5.1)
--- NOTE | 2024-11-05 11:46 | PC.PHAR ---
patient is from [facility], med list in the chart
[2024-11-05] MEDS: sodium polystyrene sulfonate 15 gm/60 mL Btl 30 GM PO (12:00)
[2024-11-05] MEDS: insulin regular-human 100 units/1 mL 10 UNIT IVP (12:01)
[2024-11-05] MEDS: calcium chloride 10% Syr 10 mL 1 GM IVP (12:01)
[2024-11-05] MEDS: sodium chloride 0.9% 250 ML IV (12:12)
[2024-11-05] MEDS: dextrose 10% 250 ML 1000 ML IV ×2 (12:13→12:56)
[2024-11-05 12:52] LABS: Glucose Point of Care 98 mg/dL (70-110)
[2024-11-05] MEDS: albuterol 2.5 mg/3 mL Neb 10 MG INHALATION (13:04)
[2024-11-05 13:29] LABS: Glucose Point of Care 124 mg/dL (70-110)
--- NOTE | 2024-11-05 14:10 | PC.NURSE ---
PER VERBAL ORDER FROM DR. KOHLER, ORDER AND ADMIN DILAUDID 1MG IVP ONCE.
[2024-11-05 14:19] LABS: Estmated Average Glucose 111; Hemoglobin A1C 5.5 % (4.0-6.0)
[2024-11-05] MEDS: HYDROMORPHONE HCL 0.5 MG/0.5 ML INJ 1 MG IVP (14:23)
[2024-11-05 14:27] LABS: Cholesterol 99 mg/dL (0-200); Erythrocyte Sedimentation Rate 71 mm/hr (0-10); LDL HDL Ratio 0.73 RATIO (0.00-3.22); Triglycerides 47 mg/dL (0-150)
[2024-11-05 14:30] LABS: HDL Cholesterol 52 mg/dL (60-100); LDL Cholesterol Calculated 38 mg/dL (50-129); Thyroid Stimulating Hormone 7.09 uIU/mL (0.27-4.20)
--- NOTE | 2024-11-05 14:35 | PM.HP ---
Providers/Chief Complaint Admitting Physician: Mg Aguilera MD Primary Care Provider: Yusuf Rivera DO Chief Complaint: critical labs at [place]; hypotension History of Present Illness Yusuf Buck is a 59 year old male with a past medical history of right lower extremity wound with a wound VAC in place managed through wound care, history of left olecranon infection since status post debridement wound cultures growing MRSA, history of type 2 diabetes mellitus, history of right lower lobe ischemia status post intervention, history of CHF history of Pseudomonas pneumonia, atrial fibrillation on Eliquis, history of thrombocytopenia, history of chronic hyponatremia, history of intractable pain history of chronic anemia who presents [facility] from [facility] due to electrolyte abnormalities, increased right lower extremity pain and drainage, increased left elbow pain and drainage, intractable pain, fatigue, malaise, increased lower extremity edema. Currently patient is alert oriented [place] focal commands he is quite uncomfortable he has severe right lower extremity pain increased drainage around his wound VAC site and through his dressings he is having seepage of bloody serosanguineous drainage, he is also experiencing severe left elbow pain and tenderness, reports fatigue, malaise no fevers, no chills, no cough no chest pain, no palpitations, does report he was sent over here primarily because of concerns of his low sodium and elevated potassium. Denies any falls, he reports issues with his sodium in the past. I spoke to custodial facility, patient has increased pain and drainage from his right lower extremity surgical debridement site increased left elbow pain, no falls, no injuries, he was on morphine 30 mg p.o. every 6 hours however the medication cannot be refilled so they have switched him for now to hydrocodone 10 1 tab every 6 hours as needed, when he does go to wound care and when he gets his dressing changes he uses morphine concentrate 20 mg p.o. twice daily due to severe pain, Review of Systems Const: Reports: fatigue and malaise; Denies: fever(s) Card: Denies: chest pain Resp: Denies: dyspnea GI: Denies: abdominal pain : Denies: flank pain Neuro: Denies: headache(s) Medications/Allergies Home Medications ?Medication ?Instructions ?Recorded ?Confirmed ?Last Taken ?Type fluticasone propionate 50 1 spray intranasal DAILY 04/09/20 11/05/24 11/05/24 History mcg/actuation nasal spray,suspension duloxetine 20 mg capsule,delayed 20 mg PO BID 06/23/22 11/05/24 11/05/24 History release Diabetic shoes with 3 pairs of #1 ea 01/19/23 11/05/24 Unknown Rx custom molded inserts blood-glucose meter,continuous #1 ea 07/01/23 11/05/24 Unknown Rx (Dexcom G7 Base Loader) blood-glucose sensor (Dexcom G7 #9 ea 07/01/23 11/05/24 Unknown Rx Sensor device) nitroglycerin 0.4 mg sublingual See Rx Instructions .Route 04/22/24 11/05/24 Unknown Rx tablet .COMPLEX #50 tabs evolocumab 140 mg/mL subcutaneous 140 mg SUBCUT .q 2weeks #2 mL 06/15/24 11/05/24 10/31/24 Rx pen injector (Repatha SureClick) insulin lispro 100 unit/mL See Rx Instructions .Route 09/23/24 11/05/24 11/04/24 Rx subcutaneous solution (Humalog .COMPLEX #10 mL U-100 Insulin) nicotine 14 mg/24 hr daily 1 patch transdermal DAILY #28 ea 09/23/24 11/05/24 10/23/24 Rx transdermal patch acetaminophen 325 mg tablet 650 mg PO Q6H PRN Pain 09/26/24 11/05/24 10/20/24 History (Tylenol) bisacodyl 10 mg rectal suppository 10 mg TX DAILY PRN Constipation 09/26/24 11/05/24 Unknown History (Dulcolax (bisacodyl)) budesonide 160 mcg-glycopyr 9 2 inh inhalation BID 09/26/24 11/05/24 10/23/24 History mcg-formot 4.8 mcg/actuation HFA inhaler (Breztri Aerosphere) insulin degludec 100 unit/mL (3 10 unit SUBCUT QPM 10/06/24 11/05/24 11/04/24 History mL) subcutaneous pen (Tresiba FlexTouch U-100 insulin) omeprazole 20 mg capsule,delayed 20 mg PO BID 10/06/24 11/05/24 11/05/24 History release isosorbide mononitrate 30 mg 15 mg PO DAILY 10/24/24 11/05/24 11/05/24 History tablet,extended release 24 hr potassium chloride 10 mEq 10 meq PO DAILY 10/24/24 11/05/24 11/05/24 History tablet,extended release(part/cryst) ranolazine 500 mg tablet,extended 500 mg PO DAILY 10/24/24 11/05/24 11/05/24 History release,12 hr sacubitril 24 mg-valsartan 26 mg 1 tab PO DAILY 10/24/24 11/05/24 11/05/24 History tablet spironolactone 50 mg tablet 50 mg PO DAILY 10/24/24 11/05/24 11/05/24 History clopidogrel 75 mg tablet 75 mg PO DAILY #90 tabs 10/25/24 11/05/24 11/05/24 Rx apixaban 5 mg tablet (Eliquis) 5 mg PO BID 11/05/24 11/05/24 11/05/24 History furosemide 40 mg tablet 40 mg PO DAILY 11/05/24 11/05/24 11/05/24 History gabapentin 300 mg capsule 300 mg PO BID 11/05/24 11/05/24 11/05/24 History hydrocodone 10 mg-acetaminophen 1 tab PO Q6H PRN Pain 11/05/24 11/05/24 11/04/24 History 325 mg tablet lidocaine HCl 2 % mucosal jelly in 1 - 2 applic mucous membrane 11/05/24 11/05/24 11/02/24 History applicator .EVERY SHIFT menthol 0.44 %-zinc oxide 20.6 % 1 applic topical .EVERY SHIFT PRN 11/05/24 11/05/24 11/04/24 History topical ointment (Calmoseptine) Pain morphine 15 mg immediate release 30 mg PO Q6H PRN Pain 11/05/24 11/05/24 11/02/24 History tablet morphine 30 mg immediate release 30 mg PO Q6H PRN Pain 11/05/24 11/05/24 11/01/24 History tablet morphine concentrate 100 mg/5 mL 20 mg PO BID 11/05/24 11/05/24 11/04/24 History (20 mg/mL) oral solution sulfamethoxazole 800 1 tab PO BID 11/05/24 11/05/24 11/05/24 History mg-trimethoprim 160 mg tablet (Bactrim DS) tamsulosin 0.4 mg capsule 0.4 mg PO DAILY 11/05/24 11/05/24 11/05/24 History white petrolatum 41 % topical 1 applic topical Q12H 11/05/24 11/05/24 Unknown History ointment (Aquaphor Original) Allergies Allergy/AdvReac Type Severity Reaction Status Date / Time No Known Allergies Allergy Verified 10/24/24 07:52 PFSH Acute PFSH: Medical History Type 2 diabetes mellitus with other skin ulcer 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 Lower extremity edema Chronic venous insufficiency Chest pain, unspecified History of intravenous drug use in remission COPD (chronic obstructive pulmonary disease) Congestive heart failure Angina pectoris Hematuria, microscopic Acute pharyngitis, unspecified Hx of myocardial infarction Chronic low back pain Benign essential HTN Arthritis Encounter for long-term (current) use of NSAIDs Atypical chest pain Benign prostatic hyperplasia without lower urinary tract symptoms High blood pressure Hypercholesteremia Mixed hyperlipidemia Diabetes mellitus Long-term current use of opiate analgesic Pain management contract signed DDD (degenerative disc disease), lumbar Tobacco use disorder Smokes to calm his nerves Chronic pain of both knees Gastro-esophageal reflux disease without esophagitis Right testicular pain Calculus of kidney Fracture of arm Abdominal pain of unknown etiology Adhesive tendinitis Male erectile dysfunction, unspecified Abscess, dental Migraine Intervertebral disc disorders with radiculopathy, lumbar region Acute bilateral knee pain Acute left-sided low back pain 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 Type 2 diabetes mellitus with diabetic neuropathy, unspecified Patient continues to have neuropathy symptoms Aortic valvar stenosis Nicotine dependence, unspecified, uncomplicated Fracture of wrist Surgical History History of PTCA S/P tendon repair H/O hernia repair H/O umbilical hernia repair H/O knee surgery Family History Mother , Metastasis Cancer Hypertension Stomach ulcer Arthritis Father , Gunshot Hypertension Sister Clotting disorder Grandmother CAD (coronary artery disease) Cancer Stroke Grandfather CAD (coronary artery disease) Cancer Family/Other Suicide Other Heart disease Denies family history of Diabetes Dementia Chronic kidney disease (CKD) Anesthesia complication Bleeding disorder Lung disease Social History Smoking and tobacco/nicotine status: former use of tobacco/nicotine (2023) Alcohol intake: former Year of sobriety/quit date alcohol: 2014 Substance/Drug Use: never Lives independently: No Housing: [facility] Marital status: Legally Current occupational status: disabled Do you think of yourself as: Straight/Heterosexual Current gender identity: Male Vitals/I&O/Wt Last Vital Signs Temp 97.4 F L 11/05/24 10:53 Pulse 106 H 11/05/24 14:10 Resp 18 11/05/24 14:10 BP 89/63 11/05/24 14:10 Pulse Ox 94 11/05/24 14:10 O2 Del Method Room Air 11/05/24 13:01 11/04/24 11/05/24 11/05/24 22:59 06:59 14:59 Intake Total 500 / 500 Balance 500 / 500 Weight last 48 hrs Weight 92.079 kg Physical Exam Const: COMMON NORMALS: no acute distress and patient oriented x3 Eye: COMMON NORMALS: Equal, round and reactive pupils present and EOMs intact bilaterally Resp: COMMON NORMALS: normal respiratory effort, No retractions, No use of accessory muscles and clear to auscultation bilaterally AUSCULTATION: clear to auscultation bilaterally Cardio: COMMON NORMALS: regular rate, regular rhythm, S1 normal heart sound present and S2 normal heart sound present RATE: regular rate RHYTHM: regular rhythm HEART SOUNDS: S1 normal heart sound present and S2 normal heart sound present GI: COMMON NORMALS: Normal to inspection, nondistended, normoactive bowel sounds present, Soft to palpation and non-tender Extremity: NARRATIVE EXTREMITY EXAM: Left elbow, dressing removed, has a abscessed area measuring 4 x 4 cm with surrounding erythema, swelling, tenderness, with packing in place with mucopurulent drainage foul-smelling right lower extremity, wound VAC in place, with wraps, with mucopurulent bloody drainage throughout the wraps leaking onto the bed and the sheets Left lower extremity erythema, swelling, tenderness, with past pitting edema Neuro: COMMON NORMALS: patient oriented x3, CN's II-XII intact bilaterally and moves all extremities Psych: COMMON NORMALS: mental status grossly normal Sepsis: Is patient septic: Yes Focused sepsis exam performed: Yes Focused sepsis exam: DP PT pulses palpable although diminished, cap refill under 2 seconds, no mottling Date exam was performed: 11/05/24 Time exam was performed: 14:50 Data 11/05/24 11:13 11/05/24 11:13 Micro: Microbiology 11/05/24 11:15 Blood Culture - Preliminary Blood SPECIMEN COLLECTED 11/05/24 11:13 Blood Culture - Preliminary Blood SPECIMEN COLLECTED A&P Assessment and plan (1) Acute hyponatremia: (2) Acute hyperkalemia: (3) Benign essential HTN: (4) Congestive heart failure: Qualifiers: Heart failure type: systolic Heart failure chronicity: chronic Qualified Code(s): I50.22 - Chronic systolic (congestive) heart failure (5) CAD (coronary artery disease): (6) Infection of left elbow: (7) Wound of right lower extremity: (8) Intractable pain: Plan Acute hyponatremia -With history of chronic hyponatremia between 10 22- -Likely component of Bactrim toxicity Plan -Monitor BMP every 4 hours -Neurochecks -Seizure precautions -Appears fluid overloaded hold off on further fluid boluses Acute hyperkalemia -No chest pain, no palpitations -Monitor serum potassium every 4 hours -Likely Bactrim toxicity Plan -Has received insulin/D50/calcium gluconate -Will give Kayexalate -Monitor BMP every 4 hours Left elbow infection -Status post debridement and wound care, wound cultures growing MRSA -CT left elbow -IV antibiotics of vancomycin, Zosyn -Will likely need IV antibiotics on discharge based on clinical progress -CT of left elbow with IV contrast Right lower extremity wound, infection -With increased drainage from surgical site, wound care site -Wound VAC in place -Spoke to general surgery remove dressings, wound VAC, wet-to-dry Plan -CT right lower extremity -IV antibiotics vancomycin and Zosyn -Wet-to-dry dressings Sepsis -Sepsis features met as blood pressures are soft, several sources of infection including right lower extremity left elbow elevated sed rate, CRP, Pro-Tra Atrial fibrillation -Continue Eliquis -Continue beta-dev Evidence of fluid overload, 1+ pitting edema bilateral extremities -Place Burciaga -Order BnP -Will consider Lasix based on clinical progress Peripheral vascular disease History of systolic CHF 32% -Currently in exacerbation with 1+ pitting edema -Will hold off on diuresis given hyponatremia -Will consider diuresis based on clinical progress repeat BMP Intractable pain -Was on morphine 30 mg p.o. every 6 hours which could not be refilled, currently on hydrocodone 10 every 6 hours which is not controlling his pain condition intractable pain -with morphine liquid 20 mg every 12 hours -Continue morphine 30 mg p.o. every 6 hours -Extended release morphine 15 mg p.o. every 12 hours PDMP PDMP Reviewed: Last Reviewed 11/05/24 13:37 by Mg Aguilera MD Attestations Medical Necessity Statement*: Patient requires hospitalization, inpatient, greater than 2 midnight for acute hyponatremia, acute hyperkalemia, left elbow infection, right lower extremity infection Diagnoses Acute hyponatremia E87.1 Acute hyperkalemia E87.5 Benign essential HTN I10 Chronic systolic congestive heart failure I50.22 Heart failure type: systolic Heart failure chronicity: chronic CAD (coronary artery disease) I25.10 Infection of left elbow M00.9 Wound of right lower extremity S81.801A Intractable pain R52
[2024-11-05 14:47] LABS: Troponin(5th) Baseline 61 ng/L (0-15)
[2024-11-05 15:27] LABS: Blood Urea Nitrogen 24 mg/dL (6-20); C Reactive Protein 59.9 mg/L (0.0-4.9); Calcium 9.3 mg/dL (8.5-10.5); Carbon Dioxide 22 mmol/L (22-29); Chloride 85 mmol/L (98-107); Creatinine Clr Calc Pharmacy 103.2781; Glucose 112 mg/dL (65-115); Osmolality Calculated 259 mOsm/kg (285-295); Sodium 122 mmol/L (136-145)
[2024-11-05 15:29] LABS: Anion Gap 20.7 (5-19); Potassium 5.7 mmol/L (3.5-5.1)
[2024-11-05 15:34] LABS: Procalcitonin 0.04 ng/mL (0-0.5)
[2024-11-05] MEDS: piperacillin-tazobactam 3.375 GM in sodium chloride 0.9% (plus) 50 ML IV ×2 (16:05→22:59)
[2024-11-05] MEDS: sodium polystyrene sulfonate 15 gm/60 mL Btl PO ×2 (16:06→21:44)
[2024-11-05] MEDS: morphine ER (12 HR) 15 mg Tablet PO ×2 (16:06→18:06)
[2024-11-05 16:09] LABS: Bilirubin Urine Negative (Negative); Blood Urine Negative (Negative); Glucose Urine UA Negative (Normal); Ketones Urine Negative (Negative); Leukocyte Esterase Urine Negative (Negative); Nitrate Urine Negative (Negative); Protein Urine Negative (Negative); Specific Gravity, Urine 1.006 (1.005-1.030); Urine Appearance Clear (CLEAR); Urine Color Yellow (Yellow); Urobilinogen Urine 0.2 mg/dL (Negative); pH Urine 6.5 (5-7)
[2024-11-05] MEDS: vancomycin 2,000 MG/400 ML PIGGYBACK 200 MG IV (16:09)
[2024-11-05 16:14] LABS: Add Urine Microscopic? YES; Bacteria Urine None Seen /hpf; RBC Urine 0-2 /hpf (0-2); Squamous Epithelial Cell Urine 0-5 /hpf (0-5); WBC Urine 0-5 /hpf (0-5)
--- OUTSIDE RECORDS SUMMARY | 2024-11-05 16:14 | XMS_ITS | Continuity of Care Document ---
Author Organization [facility] Address [address] [place] [address] Care Team Providers Care Rn Private Duty Name Role Phone Dr. Yusuf Rivera DO Attending Physician Medications Medication Frequency Instructions Diagnosis Start Date End Date Last Administered Aquaphor Healing (white petrolatum) 41 % ointment Every Shift as directed, topical, Every Shift, Apply to left heel and calf for dry cracked skin q shift 10/25/19 25 11/04/2024 08:57 PM Bactrim DS (sulfamethoxazole- trimethoprim) 800-160 mg tablet Twice A Day 1, oral, Twice A Day 11/02/19 25 025 11/05/2024 09:02 AM Breztri Aerosphere (budesonide-glycop yr-formoterol) 160-9-4.8 mcg/actuation HFA aerosol inhaler Twice A Day 2 puff, inhalation, Twice A Day, Have patient to rinse mouth with water and spit after use. 09/23/20 24 11/05/2024 09:02 AM Calmoseptine (menthol-zinc oxide) 0.44-20.6 % ointment Every Shift as directed, topical, Every Shift, Apply to buttock q shift to prevent skin breakdown 10/11/1911/04/2024 08:57 PM clopidogrel 75 mg tablet Once A Day 1, oral, Once A Day 10/25/1911/05/2024 09:02 AM Dulcolax (bisacodyl) (bisacodyl) 10 mg suppository Once A Day - PRN 1 suppository, rectal, Once A Day - PRN, Give rectally if can't take p/o, if no results from MOM 09/23/20 duloxetine 20 mg capsule,delayed release(DR/EC) Twice A Day 1 cap, oral, Twice A Day 09/23/2011/05/2024 09:02 AM Eliquis (apixaban) 5 mg tablet Twice A Day 1, oral, Twice A Day 10/25/1911/05/2024 09:02 AM fluticasone propionate 50 mcg/actuation spray,suspension Once A Day 1 spray, nasal, Once A Day, both nostrils 09/23/2011/05/2024 09:02 AM gabapentin 300 mg capsule Every 12 Hours 1 cap, oral, Every 12 Hours 09/23/2011/05/2024 05:26 AM hydrocodone /apap 10/325 10/325mg tablet Every 6 Hours - PRN 10/325mg, oral, Every 6 Hours - PRN, hydrocodone 10/325mg one tablet q 6 hours prn pain until MSIR 15mg tablets delivered 11/01/1911/04/2024 07:06 PM insulin lispro 100 unit/mL insulin pen Before Meals and At Bedtime Per Sliding Scale, subcutaneous, Before Meals and At Bedtime, If Blood Sugar is less than 60, call MD.If Blood Sugar is 201 to 250, give 2 Units.If Blood Sugar is 251 to 300, give 4 Units.If Blood Sugar is 301 to 350, give 6 Units.If Blood Sugar is 351 to 400, give 0 Units.If Blood Sugar is greater than 400, call MD. 09/23/2011/04/2024 08:57 PM isosorbide mononitrate 30 mg tablet extended release 24 hr Once A Day 0.5 tab (15mg), oral, Once A Day 09/23/2011/05/2024 09:02 AM Lasix (furosemide) 40 mg tablet Once A Day 1, oral, Once A Day 10/31/1911/05/2024 09:02 AM lidocaine HCl 2 % jelly in applicator Every Shift 1-2, mucous membrane, Every Shift, Right maloney: Use on wound bed and allow to sit for at least 2 min prior to applying new dressing 10/25/1911/02/2024 05:15 PM morphine 30 mg tablet immediate release Other 1, oral, Other, Every 6 hours PRN for pain 10/30/1911/01/2024 06:59 AM morphine 15 mg tablet immediate release Other 2, oral, Other, 2 tabs Q6 PRN 10/31/19 25 11/01/2024 11:53 AM morphine concentrate 100 mg/5 mL (20 mg/mL) solution Twice A Day 1ml, oral, Twice A Day, Administer 1ml 30 min prior to wound treatment, and prior to leaving for wound care appointment 10/13/1911/04/2024 11:38 PM nicotine 14 mg/24 hr patch 24 hour Once A Day 1 patch, transdermal, Once A Day, remove old patch before apply new patch 09/23/2011/05/2024 09:02 AM nitroglycerin 0.4 mg tablet, sublingual Three Times A Day - PRN 1 tab, sublingual, Three Times A Day - PRN, every 5 minutes x 3 for chest pain, not to exceed 3 doses in 15 minutes, if pain persists, seek medical attention 09/23/20 omeprazole 20 mg capsule,delayed release(DR/EC) Twice A Day 1 cap, oral, Twice A Day, TI for pantoprazole 09/23/2011/05/2024 05:26 AM potassium chloride 10 mEq tablet extended release Once A Day 1 tab, oral, Once A Day 10/31/1911/05/2024 09:02 AM ranolazine 500 mg tablet extended release 12 hr Once A Day 1 tab, oral, Once A Day 09/23/2011/05/2024 09:02 AM Amna Cisneros (evolocumab) 140 mg/mL pen injector Once A Day on Mon Every 2 Weeks 140 mg, subcutaneous, Once A Day on Mon Every 2 Weeks 10/28/1910/31/2024 09:15 AM sacubitril-valsart an 24-26 mg tablet Once A Day 1 tab, oral, Once A Day 09/23/2011/05/2024 09:02 AM spironolactone 50 mg tablet Once A Day 1 tab, oral, Once A Day 10/23/19 25 11/05/2024 09:02 AM tamsulosin 0.4 mg capsule Once A Day 1 cap, oral, Once A Day 09/23/2011/05/2024 09:02 AM Tresiba FlexTouch U-100 (insulin degludec) 100 unit/mL (3 mL) insulin pen At Bedtime 10 units, subcutaneous, At Bedtime 10/03/1911/04/2024 06:35 PM Tylenol (acetaminophen) 325 mg tablet Every 6 Hours - PRN 2 tabs/650mg, oral, Every 6 Hours - PRN, as needed for PRN pain/increased temp May give rectally if necessary 09/23/2010/16/2024 11:13 AM amoxicillin-pot clavulanate 875-125 mg tablet Twice A Day 1 tab, oral, Twice A Day 10/06/19 025 10/16/2024 06:18 PM clopidogrel 75 mg tablet Once A Day 1 tab, oral, Once A Day 09/23/20 025 10/19/2024 07:46 AM clopidogrel 75 mg tablet Once A Day 1 tab, oral, Once A Day 10/19/19 025 dapagliflozin propanediol 10 mg tablet Once A Day 1 tab, oral, Once A Day 09/23/20 025 10/13/2024 09:15 AM doxycycline monohydrate 100 mg tablet Twice A Day 1 tab, oral, Twice A Day 10/06/19 025 10/16/2024 06:18 PM Eliquis (apixaban) 5 mg tablet Twice A Day 1 tab, oral, Twice A Day 09/23/20 025 10/19/2024 07:46 AM Eliquis (apixaban) 5 mg tablet Twice A Day 1 tab, oral, Twice A Day 10/19/19 025 10/22/2024 06:41 PM furosemide 40 mg tablet Once A Day 1 tab, oral, Once A Day 09/23/20 025 10/13/2024 09:15 AM furosemide 40 mg tablet Twice A Day 1 tab, oral, Twice A Day, Administer in morning and at 2 pm for edema do not ti 01/16/20 10/23/2024 04:04 PM Glydo (lidocaine hcl) 2 % jelly in applicator Every Shift 1-2 applicators, mucous membrane, Every Shift, Right maloney: Use on wound bed and allow to sit for at least 2 min prior to applying new dressing 10/25/19 025 10/25/2024 12:37 PM Lasix (furosemide) 80 mg tablet Twice A Day 1 tab, oral, Twice A Day 10/23/1910/31/2024 07:25 AM levofloxacin 750 mg tablet Once A Day 1, oral, Once A Day 10/18/19 025 11/01/2024 07:08 AM lidocaine HCl 4 % cream Twice A Day as directed, topical, Twice A Day, May apply thin layer of lidocaine to wound bed BID prior to treatments. Let sit for 3mins and gently wipe away prior to applying wet-to-dry dressing or Xeroform dressing 10/03/19 025 10/11/2024 07:05 PM lidocaine HCl 4 % cream Twice A Day as directed, topical, Twice A Day, May apply thin layer of lidocaine to wound bed BID prior to treatments, let sit for 3mins and gently wipe away prior to applying dressing 10/12/1910/23/2024 09:03 PM MediHoney (honey) (honey) 80 % gel Once A Day as directed, topical, Once A Day, Sacrum: Cleanse with ns and gauze, apply medi-honey and cover with bordered foam daily and prn 09/28/19 025 10/11/2024 08:18 AM metolazone 5 mg tablet Once A Day 1, oral, Once A Day, Daily at 0600 Do not TI 10/25/19 025 10/28/2024 07:09 AM morphine 15 mg tablet immediate release Other 1, oral, Other, q 6hrs PRN. 10/05/19 025 10/30/2024 11:34 AM potassium chloride 10 mEq tablet extended release Once A Day 1 tab, oral, Once A Day 09/23/20 24 025 10/23/2024 07:05 AM potassium chloride 10 mEq tablet extended release Twice A Day 1 tab, oral, Twice A Day 10/23/19 25 025 10/31/2024 07:25 AM sucralfate 1 gram tablet Twice A Day 1 gram, oral, Twice A Day 09/23/20 24 025 10/24/2024 07:10 AM Vashe (sodium chlor-hypochlorous acid) 0.033 % irrigation solution Every Shift as directed, irrigation, Every Shift, Right leg:Cleanse with vashe and gauze, apply vashe damp gauze to wound bed, and cover with abd pad, wrap with kerlix and secure with tape 10/12/19 25 025 10/13/2024 07:56 PM Vashe (sodium chlor-hypochlorous acid) 0.033 % irrigation solution Every Shift as directed, irrigation, Every Shift, Right leg:Cleanse with vashe and gauze, apply xeroform over exposed tendon only and then apply vashe damp gauze to entire wound bed, and cover with abd pad, wrap with kerlix and secure with tape 10/14/19 25 025 10/23/2024 09:03 PM Vashe (sodium chlor-hypochlorous acid) 0.033 % irrigation solution Every Shift as directed, irrigation, Every Shift, Right leg:Cleanse with vashe and gauze, apply xeroform over exposed tendon only and then apply vashe damp gauze to entire wound bed, and cover with abd pad, wrap with kerlix and secure with tape 10/24/19 25 025 10/27/2024 05:21 PM Problems Code Type Problem ICD Code Effective Date Status ICD-10 Type 2 diabetes gaudencio itus with diabetic peripheral angiopathy without gangrene E11.51 09/23/2024 A ctive ICD-10 Type 2 diabetes gaudencio itus with diabetic neuropathy, unspecified E11.40 09/23/2024 Active ICD-10 [employer] (current) use of insulin Z79.4 1 11/24/2023 Active ICD-10 Unspecified open wou nd, right lower leg, subsequent encounter S81.801D 09/23/2024 Active ICD-10 Cellulitis of right lower limb L03.115 09/23 Active ICD-10 group home (current) use of opiate analgesic Z79 .891 10/13/2024 Active ICD-10 Difficulty in walkin g, not elsewhere classified R26.2 09/27/2024 Active ICD-10 Need for assistance with personal care Z74.1 09/28/2024 Active ICD-10 Unspecified atrial fibrillation I48.91 08/29 Active ICD-10 group home (current) use of anticoagulants Z79.0 1 09/23/2024 Active ICD-10 Ischemic cardiomyopathy I25.5 09/23/2024 A ctive ICD-10 Presence of coronary angioplasty implant and graft Z95.5 09/23/2024 Active ICD-10 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 I25.119 09/23/2024 Active ICD-10 [employer]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 Z79.02 09/23/2024 Active ICD-10 Hypertensive heart a nd chronic kidney disease with heart failure and stage 1 through stage 4 chronic kidney disease, or unspecified chronic kidney disease I13.0 09/23/2024 Activ e ICD-10 Acute on chronic com bined systolic (congestive) and diastolic (congestive) heart failure I50.43 09/23/2024 Active ICD-10 Acute embolism and t hrombosis of unspecified deep veins of unspecified lower extremity I82.409 10/03/2024 Active ICD-10 Nonrheumatic aortic (valve) stenosis I35.0 09/23/2024 Active ICD-10 Chronic obstructive pulmonary disease, unspecified J44.9 09/23/2024 Active ICD-10 Centrilobular emphysema J43.2 09/23/2024 A ctive 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 .51 09/23/2024 Active ICD-10 Obstructive sleep apnea (adult) (pediatric) G47 .33 09/23/2024 Active ICD-10 Intervertebral disc disorders with radiculopathy, lumbar region M51.16 09/23/2024 Active ICD-10 Pure hypercholesterolemia, unspecified E78.00 09/23/2024 Active ICD-10 Gastro-esophageal re flux disease without esophagitis K21.9 09/23/2024 Active ICD-10 Benign prostatic hyp erplasia without lower urinary tract symptoms N40.0 09/23/2024 Active ICD-10 Obesity, unspecified E66.9 09/23/2024 Acti ve ICD-10 Body mass index [BMI] 29.0-29.9, adult Z68.29 09/27/2024 Active Current Allergies and Intolerances Category Substance Type Reaction Severity Begin Date Status Drug Allergy No known drug allergies Allergy Active Vital Signs Height: 69.0 in Date / Time Temperature Pulse (per minute) Respirations (per minute) Systolic BP (mmHg) Diastolic BP (mmHg) O2 Saturation (%) Weight BMI 2024 08:56 PM 97.7 F 90 23 121 56 99.0 2024 05:39 PM 98.5 F 121 18 108 73 99.0 2024 12:54 PM 207.0 lbs 30.5 7 2024 07:50 PM 98.0 F 100 20 90 50 96.0 2024 04:19 PM 212.0 lbs 31.3 2024 04:17 PM 98.5 F 83 18 90 47 95.0 2024 06:54 PM 98.0 F 73 19 86 46 96.0 2024 05:13 PM 98.3 F 73 18 98 51 92.0 2024 08:24 PM 98.3 F 88 16 88 60 92.0 2024 05:24 PM 98.3 F 90 16 88 51 97.0 2024 12:49 PM 206.4 lbs 30.4 8 2024 12:46 PM 206.8 lbs 30.5 4 2024 12:45 PM 97.8 F 90 16 95 53 99.0 2024 09:21 PM 98.5 F 60 22 90 58 97.0 2024 03:02 PM 203.6 lbs 30.0 6 2024 02:33 PM 207.6 lbs 30.6 5 2024 06:39 PM 220.0 lbs 32.4 8 2024 05:20 PM 219.8 lbs 32.4 6 2024 11:07 AM 221.2 lbs 32.6 6 2024 12:36 PM 234.2 lbs 34.5 8 2024 06:59 AM 236.0 lbs 34.8 5 2024 07:06 AM 237.2 lbs 35.0 2 2024 09:02 PM 236.8 lbs 34.9 7 2024 05:40 PM 229.4 lbs 33.8 7 2024 03:30 PM 229.8 lbs 33.9 3 2024 02:46 PM 231.0 lbs 34.1 1 2024 12:42 PM 226.6 lbs 33.4 6 2024 03:56 PM 229.8 lbs 33.9 3 2024 09:24 AM 231.4 lbs 34.1 7 2024 09:42 AM 229.8 lbs 33.9 3 2024 12:34 PM 227.5 lbs 33.5 9 2024 08:42 AM 229.8 lbs 33.9 3 2024 05:20 PM 233.2 lbs 34.4 3 2024 11:28 AM 229.8 lbs 33.9 3 2024 04:30 PM 222.4 lbs 32.8 4 2024 09:29 AM 222.8 lbs 32.9 2024 04:00 PM 220.0 lbs 32.4 8 2024 04:36 PM 219.0 lbs 32.3 4 2024 05:22 PM 218.4 lbs 32.2 5 2024 04:00 PM 204.0 lbs 30.1 2 2024 04:54 PM 204.3 lbs 30.1 7 2024 04:49 PM 204.0 lbs 30.1 2 2024 12:37 PM 202.0 lbs 29.8 3 2023 03:46 PM 200.0 lbs 29.5 3 12/30/ 2024 01:35 PM 197.6 lbs 29.1 8 2023 01:34 PM 197.6 lbs 29.1 8 2023 03:07 PM 198.2 lbs 29.2 7 2023 07:18 PM 188.0 lbs 27.7 6 Advance Directives Directive Note Full Code Insurance Providers Payer Policy type Group Name Group number Policy ID Address Ph one Medicare Part A Medicare Part A [id number] Phone: Fax: Medicare Part B Medicare Part B [id number] Phone: Fax: Medicaid [place] Medicaid ([facility]) [id number] Phone: Fax: Medicaid [place] P[place] Medicaid ([facility]) [id number] Phone: Fax: Private Private Phone: Fax: Private Interest Private Phone: Fax: Patient Liability Private Phone: Fax: Immunizations Vaccine Sampler First Date Status Dose Series Complete COVID-19 Vaccine 09/23/2024 Refused Influenza Vaccine 09/23/2024 Completed Pneumococcal Vaccine 09/23/2024 Refused RSV Vaccine 09/23/2024 Refused Procedures Not available for this record Results Name Date Time Positive/Negative Value Unit Range Blood Sugar 11/05/2024 05:29 AM 123.0 mg/dL Blood Sugar 11/04/2024 08:55 PM 157.0 mg/dL Blood Sugar 11/04/2024 03:59 PM 113.0 mg/dL Blood Sugar 11/04/2024 12:53 PM 137.0 mg/dL Blood Sugar 11/04/2024 05:20 AM 124.0 mg/dL Blood Sugar 11/03/2024 06:37 PM 165.0 mg/dL Blood Sugar 11/03/2024 05:19 PM 150.0 mg/dL Blood Sugar 11/03/2024 12:13 PM 89.0 mg/dL Blood Sugar 11/03/2024 05:07 AM 127.0 mg/dL Blood Sugar 11/02/2024 06:34 PM 198.0 mg/dL Blood Sugar 11/02/2024 05:13 PM 116.0 mg/dL Blood Sugar 11/02/2024 12:14 PM 116.0 mg/dL Blood Sugar 11/02/2024 05:14 AM 108.0 mg/dL Blood Sugar 11/01/2024 06:52 PM 140.0 mg/dL Blood Sugar 11/01/2024 04:12 PM 144.0 mg/dL Blood Sugar 11/01/2024 12:08 PM 150.0 mg/dL Blood Sugar 11/01/2024 07:07 AM 122.0 mg/dL Blood Sugar 10/31/2024 08:11 PM 155.0 mg/dL Blood Sugar 10/31/2024 05:07 PM 114.0 mg/dL Blood Sugar 10/31/2024 12:06 PM 143.0 mg/dL Blood Sugar 10/31/2024 09:15 AM 114.0 mg/dL Blood Sugar 10/30/2024 05:32 PM 110.0 mg/dL Blood Sugar 10/30/2024 12:15 PM 113.0 mg/dL Blood Sugar 10/30/2024 05:33 AM 138.0 mg/dL Blood Sugar 10/29/2024 08:15 PM 170.0 mg/dL Blood Sugar 10/29/2024 04:36 PM 150.0 mg/dL Blood Sugar 10/29/2024 12:25 PM 172.0 mg/dL Blood Sugar 10/29/2024 05:49 AM 122.0 mg/dL Blood Sugar 10/28/2024 07:01 PM 191.0 mg/dL Blood Sugar 10/28/2024 06:42 PM 135.0 mg/dL Blood Sugar 10/28/2024 11:45 AM 130.0 mg/dL Blood Sugar 10/28/2024 07:00 AM 131.0 mg/dL Blood Sugar 10/27/2024 11:22 PM 123.0 mg/dL Blood Sugar 10/27/2024 05:19 PM 132.0 mg/dL Blood Sugar 10/27/2024 05:19 PM 112.0 mg/dL Blood Sugar 10/27/2024 07:22 AM 143.0 mg/dL Blood Sugar 10/26/2024 08:35 PM 205.0 mg/dL Blood Sugar 10/26/2024 04:54 PM 127.0 mg/dL Blood Sugar 10/26/2024 11:21 AM 119.0 mg/dL Blood Sugar 10/26/2024 08:37 AM 105.0 mg/dL Blood Sugar 10/25/2024 07:09 PM 181.0 mg/dL Blood Sugar 10/25/2024 06:34 PM 134.0 mg/dL Blood Sugar 10/25/2024 12:36 PM 107.0 mg/dL Blood Sugar 10/25/2024 05:23 AM 113.0 mg/dL Blood Sugar 10/24/2024 06:48 PM 156.0 mg/dL Blood Sugar 10/24/2024 06:33 PM 156.0 mg/dL Blood Sugar 10/24/2024 01:56 PM 110.0 mg/dL Blood Sugar 10/23/2024 06:46 PM 152.0 mg/dL Blood Sugar 10/23/2024 11:33 AM 133.0 mg/dL Blood Sugar 10/23/2024 09:08 AM 101.0 mg/dL Blood Sugar 10/22/2024 08:21 PM 155.0 mg/dL Blood Sugar 10/22/2024 04:21 PM 122.0 mg/dL Blood Sugar 10/22/2024 10:55 AM 151.0 mg/dL Blood Sugar 10/22/2024 07:42 AM 118.0 mg/dL Blood Sugar 10/21/2024 08:56 PM 167.0 mg/dL Blood Sugar 10/21/2024 05:17 PM 113.0 mg/dL Blood Sugar 10/21/2024 11:19 AM 153.0 mg/dL Blood Sugar 10/21/2024 05:04 AM 146.0 mg/dL Blood Sugar 10/20/2024 06:48 PM 400.0 mg/dL Blood Sugar 10/20/2024 05:19 PM 110.0 mg/dL Blood Sugar 10/20/2024 11:45 AM 113.0 mg/dL Blood Sugar 10/20/2024 05:02 AM 111.0 mg/dL Blood Sugar 10/19/2024 06:38 PM 209.0 mg/dL Blood Sugar 10/19/2024 03:31 PM 121.0 mg/dL Blood Sugar 10/19/2024 12:09 PM 133.0 mg/dL Blood Sugar 10/19/2024 05:11 AM 132.0 mg/dL Blood Sugar 10/18/2024 06:44 PM 171.0 mg/dL Blood Sugar 10/18/2024 12:01 PM 100.0 mg/dL Blood Sugar 10/18/2024 07:01 AM 126.0 mg/dL Blood Sugar 10/17/2024 07:31 PM 200.0 mg/dL Blood Sugar 10/17/2024 04:24 PM 208.0 mg/dL Blood Sugar 10/17/2024 11:35 AM 213.0 mg/dL Blood Sugar 10/17/2024 07:19 AM 113.0 mg/dL Blood Sugar 10/16/2024 07:28 PM 206.0 mg/dL Blood Sugar 10/16/2024 05:26 PM 107.0 mg/dL Blood Sugar 10/16/2024 12:11 PM 137.0 mg/dL Blood Sugar 10/16/2024 08:23 AM 82.0 mg/dL Blood Sugar 10/15/2024 08:26 PM 195.0 mg/dL Blood Sugar 10/15/2024 05:36 PM 144.0 mg/dL Blood Sugar 10/15/2024 11:21 AM 129.0 mg/dL Blood Sugar 10/15/2024 06:54 AM 122.0 mg/dL Blood Sugar 10/14/2024 08:26 PM 153.0 mg/dL Blood Sugar 10/14/2024 04:55 PM 141.0 mg/dL Blood Sugar 10/14/2024 11:07 AM 118.0 mg/dL Blood Sugar 10/14/2024 06:50 AM 157.0 mg/dL Blood Sugar 10/13/2024 07:59 PM 239.0 mg/dL Blood Sugar 10/13/2024 05:11 PM 159.0 mg/dL Blood Sugar 10/13/2024 01:26 PM 235.0 mg/dL Blood Sugar 10/13/2024 05:12 AM 128.0 mg/dL Blood Sugar 10/12/2024 06:35 PM 165.0 mg/dL Blood Sugar 10/12/2024 05:40 PM 158.0 mg/dL Blood Sugar 10/12/2024 11:29 AM 137.0 mg/dL Blood Sugar 10/12/2024 05:16 AM 134.0 mg/dL Blood Sugar 10/11/2024 06:27 PM 185.0 mg/dL Blood Sugar 10/11/2024 03:34 PM 156.0 mg/dL Blood Sugar 10/11/2024 11:41 AM 189.0 mg/dL Blood Sugar 10/11/2024 07:12 AM 134.0 mg/dL Blood Sugar 10/10/2024 07:04 AM 113.0 mg/dL Blood Sugar 10/09/2024 08:00 PM 182.0 mg/dL Blood Sugar 10/09/2024 05:10 PM 128.0 mg/dL Blood Sugar 10/09/2024 01:08 PM 141.0 mg/dL Blood Sugar 10/09/2024 07:58 AM 113.0 mg/dL Blood Sugar 10/08/2024 08:10 PM 195.0 mg/dL Blood Sugar 10/08/2024 04:32 PM 211.0 mg/dL Blood Sugar 10/08/2024 11:27 AM 192.0 mg/dL Blood Sugar 10/08/2024 06:54 AM 116.0 mg/dL Blood Sugar 10/07/2024 07:47 PM 149.0 mg/dL Blood Sugar 10/07/2024 04:30 PM 204.0 mg/dL Blood Sugar 10/07/2024 12:02 PM 168.0 mg/dL Blood Sugar 10/07/2024 05:23 AM 159.0 mg/dL Blood Sugar 10/06/2024 06:45 PM 197.0 mg/dL Blood Sugar 10/06/2024 03:50 PM 143.0 mg/dL Blood Sugar 10/06/2024 05:17 AM 126.0 mg/dL Blood Sugar 10/05/2024 06:53 PM 198.0 mg/dL Blood Sugar 10/05/2024 04:41 PM 149.0 mg/dL Blood Sugar 10/05/2024 02:37 PM 142.0 mg/dL Blood Sugar 10/05/2024 05:06 AM 148.0 mg/dL Blood Sugar 10/04/2024 06:30 PM 183.0 mg/dL Blood Sugar 10/04/2024 04:25 PM 167.0 mg/dL Blood Sugar 10/04/2024 12:01 PM 181.0 mg/dL Blood Sugar 10/04/2024 07:37 AM 138.0 mg/dL Blood Sugar 10/03/2024 08:45 PM 166.0 mg/dL Blood Sugar 10/03/2024 04:53 PM 170.0 mg/dL Blood Sugar 10/03/2024 11:42 AM 181.0 mg/dL Blood Sugar 10/03/2024 07:40 AM 162.0 mg/dL Blood Sugar 10/02/2024 10:26 PM 200.0 mg/dL Blood Sugar 10/02/2024 05:21 PM 202.0 mg/dL Blood Sugar 10/02/2024 02:22 PM 116.0 mg/dL Blood Sugar 10/02/2024 09:26 AM 161.0 mg/dL Blood Sugar 10/01/2024 07:46 PM 164.0 mg/dL Blood Sugar 10/01/2024 05:33 PM 182.0 mg/dL Blood Sugar 10/01/2024 11:39 AM 172.0 mg/dL Blood Sugar 10/01/2024 07:11 AM 141.0 mg/dL Blood Sugar 09/30/2024 07:39 PM 173.0 mg/dL Blood Sugar 09/30/2024 04:59 PM 242.0 mg/dL Blood Sugar 09/30/2024 11:15 AM 142.0 mg/dL Blood Sugar 09/30/2024 06:55 AM 216.0 mg/dL Blood Sugar 09/29/2024 08:50 PM 147.0 mg/dL Blood Sugar 09/29/2024 04:52 PM 147.0 mg/dL Blood Sugar 09/29/2024 11:11 AM 138.0 mg/dL Blood Sugar 09/29/2024 05:06 AM 161.0 mg/dL Blood Sugar 09/28/2024 06:34 PM 190.0 mg/dL Blood Sugar 09/28/2024 06:12 PM 107.0 mg/dL Blood Sugar 09/28/2024 07:18 AM 148.0 mg/dL Blood Sugar 09/28/2024 05:03 AM 161.0 mg/dL Blood Sugar 09/27/2024 06:53 PM 180.0 mg/dL Blood Sugar 09/27/2024 04:52 PM 186.0 mg/dL Blood Sugar 09/27/2024 11:28 AM 207.0 mg/dL Blood Sugar 09/27/2024 07:03 AM 154.0 mg/dL Blood Sugar 09/26/2024 06:57 PM 169.0 mg/dL Blood Sugar 09/26/2024 05:17 PM 203.0 mg/dL Blood Sugar 09/26/2024 07:57 AM 189.0 mg/dL Blood Sugar 09/25/2024 09:37 PM 180.0 mg/dL Blood Sugar 09/25/2024 06:51 PM 142.0 mg/dL Blood Sugar 09/25/2024 03:03 PM 141.0 mg/dL Blood Sugar 09/25/2024 04:19 AM 191.0 mg/dL Blood Sugar 09/25/2024 12:51 AM 128.0 mg/dL Blood Sugar 09/24/2024 06:30 PM 194.0 mg/dL Blood Sugar 09/24/2024 06:30 PM 181.0 mg/dL Blood Sugar 09/24/2024 10:52 AM 152.0 mg/dL Blood Sugar 09/23/2024 06:56 PM 215.0 mg/dL Blood Sugar 09/23/2024 03:46 PM 188.0 mg/dL TB test 10/02/2024 03:15 PM Negative 0.0 mm TB test 09/24/2024 Negative 0.0 mm Goals Goal Date Will have positive responses to activities of my choice weekly through next assessment. 11/25/2024 Will have a BM at least ever y 3 days for 120 days since update/last review AND/OR will not experience any complications r/t to colostomy for 120 days from update/ last review AND/OR Will not experience any GI complications for 120 days since update/last review AND/OR Will remain clean, dry between incontinent episodes thru 120days from update/last review 12/22/2024 ADL approaches will meet the resident?s needs to enhance ability, maintain abilities, or provide quality. 12/25/2024 Resident will not exhibit si gns of drug related sedation, hypotension, or anticholinergic symptoms. 12/28/2024 Resident will verbalize relief of pain. 12/28/2024 Resident will remain free from injury. 0 12/28/2024 Resident's skin will remain intact. 040 10/2024 Encounters Admission Date Discharge Date Description MRN Visit Count 09/23/2024 13:59 11/05/2024 10:43 LTPAC Admission [id number] 01
--- OUTSIDE RECORDS SUMMARY | 2024-11-05 16:14 | XMS_ITS | Continuity of Care Document ---
Author Organization [facility] ([facility]) Address [address] [place] [address] Problems Condition ICD9 code ICD10 code SNOMED code Start Date End Date S tatus Cellulitis of right lower limb L03.115 09/23/2024 Active Nonrheumatic aortic (valve) stenosis I35.0 09/23/2024 Active Chest pain, unspecified R07.9 09/23/2024 Active Centrilobular emphysema J43.2 09/23/2024 Active Intervertebral disc disorders with radiculopathy, lumbar region M51.16 09/23/2024 Active Pure hypercholesterolemia, unspecified E78.00 09/23/2024 Active Benign prostatic hyperplasia without lower urinary tract symptoms N40.0 09/23/2024 Ac tive Obesity, unspecified E66.9 09/23/2024 Active Difficulty in walking, not elsewhere classified R26.2 09/27/2024 Active Need for assistance with personal care Z74.1 09/28/2024 Active 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 09/23/2024 Activ e Body mass index (BMI) 29.0-29.9, adult Z68.29 09/27/2024 Active Unspecified open wound of lower back and pelvis without penetration into retroperitoneum, subsequent encounter S31.000D 09/27/2024 Acti ve 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 Glucose [Mass/volume] in Ser um or Plasma [2345-7] 123 mg/dL N Blood chemistry[[id number]]? Glucose [Mass/volume] in Ser um or Plasma [2345-7] 157 mg/dL N Blood chemistry[[id number]]? Glucose [Mass/volume] in Ser um or Plasma [2345-7] 137 mg/dL N Blood chemistry[[id number]]? Glucose [Mass/volume] in Ser um or Plasma [2345-7] 124 mg/dL N Blood chemistry[[id number]]? Glucose [Mass/volume] in Ser um or Plasma [2345-7] 113 mg/dL N Blood chemistry[[id number]]? Glucose [Mass/volume] in Ser um or Plasma [2345-7] 165 mg/dL N Blood chemistry[[id number]]? Glucose [Mass/volume] in Ser um or Plasma [2345-7] 89 mg/dL N Blood chemistry[[id number]]? Glucose [Mass/volume] in Ser um or Plasma [2345-7] 150 mg/dL N Blood chemistry[[id number]]? Glucose [Mass/volume] in Ser um or Plasma [2345-7] 127 mg/dL N Blood chemistry[[id number]]? Glucose [Mass/volume] in Ser um or Plasma [2345-7] 116 mg/dL N Blood chemistry[[id number]]? Glucose [Mass/volume] in Ser um or Plasma [2345-7] 198 mg/dL N Blood chemistry[[id number]]? Glucose [Mass/volume] in Ser um or Plasma [2345-7] 108 mg/dL N Blood chemistry[[id number]]? Glucose [Mass/volume] in Ser um or Plasma [2345-7] 116 mg/dL N Blood chemistry[[id number]]? Glucose [Mass/volume] in Ser um or Plasma [2345-7] 140 mg/dL N Blood chemistry[[id number]]? Glucose [Mass/volume] in Ser um or Plasma [2345-7] 150 mg/dL N Blood chemistry[[id number]]? Glucose [Mass/volume] in Ser um or Plasma [2345-7] 122 mg/dL N Blood chemistry[[id number]]? Glucose [Mass/volume] in Ser um or Plasma [2345-7] 144 mg/dL N Blood chemistry[[id number]]? Glucose [Mass/volume] in Ser um or Plasma [2345-7] 143 mg/dL N Blood chemistry[[id number]]? Glucose [Mass/volume] in Ser um or Plasma [2345-7] 114 mg/dL N Blood chemistry[[id number]]? Glucose [Mass/volume] in Ser um or Plasma [2345-7] 155 mg/dL N Blood chemistry[[id number]]? Glucose [Mass/volume] in Ser um or Plasma [2345-7] 114 mg/dL N Blood chemistry[[id number]]? Glucose [Mass/volume] in Ser um or Plasma [2345-7] 110 mg/dL N Blood chemistry[[id number]]? Glucose [Mass/volume] in Ser um or Plasma [2345-7] 113 mg/dL N Blood chemistry[[id number]]? Glucose [Mass/volume] in Ser um or Plasma [2345-7] 138 mg/dL N Blood chemistry[[id number]]? Glucose [Mass/volume] in Ser um or Plasma [2345-7] 170 mg/dL N Blood chemistry[[id number]]? Glucose [Mass/volume] in Ser um or Plasma [2345-7] 150 mg/dL N Blood chemistry[[id number]]? Glucose [Mass/volume] in Ser um or Plasma [2345-7] 172 mg/dL N Blood chemistry[[id number]]? Glucose [Mass/volume] in Ser um or Plasma [2345-7] 122 mg/dL N Blood chemistry[[id number]]? Glucose [Mass/volume] in Ser um or Plasma [2345-7] 191 mg/dL N Blood chemistry[[id number]]? Glucose [Mass/volume] in Ser um or Plasma [2345-7] 135 mg/dL N Blood chemistry[[id number]]? Glucose [Mass/volume] in Ser um or Plasma [2345-7] 130 mg/dL N Blood chemistry[[id number]]? Glucose [Mass/volume] in Ser um or Plasma [2345-7] 131 mg/dL N Blood chemistry[[id number]]? Glucose [Mass/volume] in Ser um or Plasma [2345-7] 123 mg/dL N Blood chemistry[[id number]]? Glucose [Mass/volume] in Ser um or Plasma [2345-7] 143 mg/dL N Blood chemistry[[id number]]? Glucose [Mass/volume] in Ser um or Plasma [2345-7] 132 mg/dL N Glucose [Mass/volume] in Ser um or Plasma [2345-7] 112 mg/dL N Blood chemistry[[id number]]? Glucose [Mass/volume] in Ser um or Plasma [2345-7] 205 mg/dL N Blood chemistry[[id number]]? Glucose [Mass/volume] in Ser um or Plasma [2345-7] 119 mg/dL N Blood chemistry[[id number]]? Glucose [Mass/volume] in Ser um or Plasma [2345-7] 105 mg/dL N Blood chemistry[[id number]]? Glucose [Mass/volume] in Ser um or Plasma [2345-7] 127 mg/dL N Blood chemistry[[id number]]? Glucose [Mass/volume] in Ser um or Plasma [2345-7] 107 mg/dL N Blood chemistry[[id number]]? Glucose [Mass/volume] in Ser um or Plasma [2345-7] 181 mg/dL N Blood chemistry[[id number]]? Glucose [Mass/volume] in Ser um or Plasma [2345-7] 134 mg/dL N Blood chemistry[[id number]]? Glucose [Mass/volume] in Ser um or Plasma [2345-7] 113 mg/dL N Blood chemistry[[id number]]? Glucose [Mass/volume] in Ser um or Plasma [2345-7] 156 mg/dL N Blood chemistry[[id number]]? Glucose [Mass/volume] in Ser um or Plasma [2345-7] 156 mg/dL N Blood chemistry[[id number]]? Glucose [Mass/volume] in Ser um or Plasma [2345-7] 110 mg/dL N Blood chemistry[[id number]]? Glucose [Mass/volume] in Ser um or Plasma [2345-7] 133 mg/dL N Blood chemistry[[id number]]? Glucose [Mass/volume] in Ser um or Plasma [2345-7] 101 mg/dL N Blood chemistry[[id number]]? Glucose [Mass/volume] in Ser um or Plasma [2345-7] 152 mg/dL N Blood chemistry[[id number]]? Glucose [Mass/volume] in Ser um or Plasma [2345-7] 155 mg/dL N Blood chemistry[[id number]]? Glucose [Mass/volume] in Ser um or Plasma [2345-7] 122 mg/dL N Blood chemistry[[id number]]? Glucose [Mass/volume] in Ser um or Plasma [2345-7] 151 mg/dL N Blood chemistry[[id number]]? Glucose [Mass/volume] in Ser um or Plasma [2345-7] 118 mg/dL N Blood chemistry[[id number]]? Glucose [Mass/volume] in Ser um or Plasma [2345-7] 167 mg/dL N Blood chemistry[[id number]]? Glucose [Mass/volume] in Ser um or Plasma [2345-7] 153 mg/dL N Blood chemistry[[id number]]? Glucose [Mass/volume] in Ser um or Plasma [2345-7] 113 mg/dL N Blood chemistry[[id number]]? Glucose [Mass/volume] in Ser um or Plasma [2345-7] 146 mg/dL N Blood chemistry[[id number]]? Glucose [Mass/volume] in Ser um or Plasma [2345-7] 400 mg/dL N Blood chemistry[[id number]]? Glucose [Mass/volume] in Ser um or Plasma [2345-7] 113 mg/dL N Blood chemistry[[id number]]? Glucose [Mass/volume] in Ser um or Plasma [2345-7] 110 mg/dL N Blood chemistry[[id number]]? Glucose [Mass/volume] in Ser um or Plasma [2345-7] 111 mg/dL N Blood chemistry[[id number]]? Glucose [Mass/volume] in Ser um or Plasma [2345-7] 209 mg/dL N Blood chemistry[[id number]]? Glucose [Mass/volume] in Ser um or Plasma [2345-7] 133 mg/dL N Blood chemistry[[id number]]? Glucose [Mass/volume] in Ser um or Plasma [2345-7] 132 mg/dL N Blood chemistry[[id number]]? Glucose [Mass/volume] in Ser um or Plasma [2345-7] 121 mg/dL N Blood chemistry[[id number]]? Glucose [Mass/volume] in Ser um or Plasma [2345-7] 171 mg/dL N Blood chemistry[[id number]]? Glucose [Mass/volume] in Ser um or Plasma [2345-7] 100 mg/dL N Blood chemistry[[id number]]? Glucose [Mass/volume] in Ser um or Plasma [2345-7] 126 mg/dL N Blood chemistry[[id number]]? Glucose [Mass/volume] in Ser um or Plasma [2345-7] 213 mg/dL N Blood chemistry[[id number]]? Glucose [Mass/volume] in Ser um or Plasma [2345-7] 200 mg/dL N Blood chemistry[[id number]]? Glucose [Mass/volume] in Ser um or Plasma [2345-7] 113 mg/dL N Blood chemistry[[id number]]? Glucose [Mass/volume] in Ser um or Plasma [2345-7] 208 mg/dL N Blood chemistry[[id number]]? Glucose [Mass/volume] in Ser um or Plasma [2345-7] 206 mg/dL N Blood chemistry[[id number]]? Glucose [Mass/volume] in Ser um or Plasma [2345-7] 107 mg/dL N Blood chemistry[[id number]]? Glucose [Mass/volume] in Ser um or Plasma [2345-7] 137 mg/dL N Blood chemistry[[id number]]? Glucose [Mass/volume] in Ser um or Plasma [2345-7] 82 mg/dL N Blood chemistry[[id number]]? Glucose [Mass/volume] in Ser um or Plasma [2345-7] 129 mg/dL N Blood chemistry[[id number]]? Glucose [Mass/volume] in Ser um or Plasma [2345-7] 195 mg/dL N Blood chemistry[[id number]]? Glucose [Mass/volume] in Ser um or Plasma [2345-7] 122 mg/dL N Blood chemistry[[id number]]? Glucose [Mass/volume] in Ser um or Plasma [2345-7] 144 mg/dL N Blood chemistry[[id number]]? Glucose [Mass/volume] in Ser um or Plasma [2345-7] 118 mg/dL N Blood chemistry[[id number]]? Glucose [Mass/volume] in Ser um or Plasma [2345-7] 153 mg/dL N Blood chemistry[[id number]]? Glucose [Mass/volume] in Ser um or Plasma [2345-7] 157 mg/dL N Blood chemistry[[id number]]? Glucose [Mass/volume] in Ser um or Plasma [2345-7] 141 mg/dL N Blood chemistry[[id number]]? Glucose [Mass/volume] in Ser um or Plasma [2345-7] 239 mg/dL N Blood chemistry[[id number]]? Glucose [Mass/volume] in Ser um or Plasma [2345-7] 128 mg/dL N Blood chemistry[[id number]]? Glucose [Mass/volume] in Ser um or Plasma [2345-7] 159 mg/dL N Blood chemistry[[id number]]? Glucose [Mass/volume] in Ser um or Plasma [2345-7] 235 mg/dL N Blood chemistry[[id number]]? Glucose [Mass/volume] in Ser um or Plasma [2345-7] 165 mg/dL N Blood chemistry[[id number]]? Glucose [Mass/volume] in Ser um or Plasma [2345-7] 137 mg/dL N Blood chemistry[[id number]]? Glucose [Mass/volume] in Ser um or Plasma [2345-7] 158 mg/dL N Blood chemistry[[id number]]? Glucose [Mass/volume] in Ser um or Plasma [2345-7] 134 mg/dL N Blood chemistry[[id number]]? Glucose [Mass/volume] in Ser um or Plasma [2345-7] 189 mg/dL N Blood chemistry[[id number]]? Glucose [Mass/volume] in Ser um or Plasma [2345-7] 134 mg/dL N Blood chemistry[[id number]]? Glucose [Mass/volume] in Ser um or Plasma [2345-7] 185 mg/dL N Blood chemistry[[id number]]? Glucose [Mass/volume] in Ser um or Plasma [2345-7] 156 mg/dL N Blood chemistry[[id number]]? Glucose [Mass/volume] in Ser um or Plasma [2345-7] 113 mg/dL N Blood chemistry[[id number]]? Glucose [Mass/volume] in Ser um or Plasma [2345-7] 182 mg/dL N Blood chemistry[[id number]]? Glucose [Mass/volume] in Ser um or Plasma [2345-7] 113 mg/dL N Blood chemistry[[id number]]? Glucose [Mass/volume] in Ser um or Plasma [2345-7] 128 mg/dL N Blood chemistry[[id number]]? Glucose [Mass/volume] in Ser um or Plasma [2345-7] 141 mg/dL N Blood chemistry[[id number]]? Glucose [Mass/volume] in Ser um or Plasma [2345-7] 195 mg/dL N Blood chemistry[[id number]]? Glucose [Mass/volume] in Ser um or Plasma [2345-7] 211 mg/dL N Blood chemistry[[id number]]? Glucose [Mass/volume] in Ser um or Plasma [2345-7] 192 mg/dL N Blood chemistry[[id number]]? Glucose [Mass/volume] in Ser um or Plasma [2345-7] 116 mg/dL N Blood chemistry[[id number]]? Glucose [Mass/volume] in Ser um or Plasma [2345-7] 149 mg/dL N Blood chemistry[[id number]]? Glucose [Mass/volume] in Ser um or Plasma [2345-7] 168 mg/dL N Blood chemistry[[id number]]? Glucose [Mass/volume] in Ser um or Plasma [2345-7] 159 mg/dL N Blood chemistry[[id number]]? Glucose [Mass/volume] in Ser um or Plasma [2345-7] 204 mg/dL N Blood chemistry[[id number]]? Glucose [Mass/volume] in Ser um or Plasma [2345-7] 197 mg/dL N Blood chemistry[[id number]]? Glucose [Mass/volume] in Ser um or Plasma [2345-7] 126 mg/dL N Blood chemistry[[id number]]? Glucose [Mass/volume] in Ser um or Plasma [2345-7] 143 mg/dL N Blood chemistry[[id number]]? Glucose [Mass/volume] in Ser um or Plasma [2345-7] 198 mg/dL N Blood chemistry[[id number]]? Glucose [Mass/volume] in Ser um or Plasma [2345-7] 148 mg/dL N Blood chemistry[[id number]]? Glucose [Mass/volume] in Ser um or Plasma [2345-7] 149 mg/dL N Blood chemistry[[id number]]? Glucose [Mass/volume] in Ser um or Plasma [2345-7] 142 mg/dL N Tuberculosis reaction wheal[ 06852-7]? Tuberculosis reaction wheal [38861-8] 0 mm NEG Blood chemistry[[id number]]? Glucose [Mass/volume] in Ser um or Plasma [2345-7] 181 mg/dL N Blood chemistry[[id number]]? Glucose [Mass/volume] in Ser um or Plasma [2345-7] 138 mg/dL N Blood chemistry[[id number]]? Glucose [Mass/volume] in Ser um or Plasma [2345-7] 183 mg/dL N Blood chemistry[[id number]]? Glucose [Mass/volume] in Ser um or Plasma [2345-7] 167 mg/dL N Blood chemistry[[id number]]? Glucose [Mass/volume] in Ser um or Plasma [2345-7] 166 mg/dL N Blood chemistry[[id number]]? Glucose [Mass/volume] in Ser um or Plasma [2345-7] 181 mg/dL N Blood chemistry[[id number]]? Glucose [Mass/volume] in Ser um or Plasma [2345-7] 162 mg/dL N Blood chemistry[[id number]]? Glucose [Mass/volume] in Ser um or Plasma [2345-7] 170 mg/dL N Blood chemistry[[id number]]? Glucose [Mass/volume] in Ser um or Plasma [2345-7] 200 mg/dL N Blood chemistry[[id number]]? Glucose [Mass/volume] in Ser um or Plasma [2345-7] 161 mg/dL N Blood chemistry[[id number]]? Glucose [Mass/volume] in Ser um or Plasma [2345-7] 202 mg/dL N Tuberculosis reaction wheal[ 03495-3]? Tuberculosis reaction wheal [13906-0] See note TB test Blood chemistry[[id number]]? Glucose [Mass/volume] in Ser um or Plasma [2345-7] 116 mg/dL N Blood chemistry[[id number]]? Glucose [Mass/volume] in Ser um or Plasma [2345-7] 164 mg/dL N Blood chemistry[[id number]]? Glucose [Mass/volume] in Ser um or Plasma [2345-7] 182 mg/dL N Blood chemistry[[id number]]? Glucose [Mass/volume] in Ser um or Plasma [2345-7] 172 mg/dL N Blood chemistry[[id number]]? Glucose [Mass/volume] in Ser um or Plasma [2345-7] 141 mg/dL N Blood chemistry[[id number]]? Glucose [Mass/volume] in Ser um or Plasma [2345-7] 173 mg/dL N Blood chemistry[[id number]]? Glucose [Mass/volume] in Ser um or Plasma [2345-7] 142 mg/dL N Blood chemistry[[id number]]? Glucose [Mass/volume] in Ser um or Plasma [2345-7] 216 mg/dL N Blood chemistry[[id number]]? Glucose [Mass/volume] in Ser um or Plasma [2345-7] 242 mg/dL N Blood chemistry[[id number]]? Glucose [Mass/volume] in Ser um or Plasma [2345-7] 147 mg/dL N Blood chemistry[[id number]]? Glucose [Mass/volume] in Ser um or Plasma [2345-7] 138 mg/dL N Blood chemistry[[id number]]? Glucose [Mass/volume] in Ser um or Plasma [2345-7] 161 mg/dL N Blood chemistry[[id number]]? Glucose [Mass/volume] in Ser um or Plasma [2345-7] 147 mg/dL N Blood chemistry[[id number]]? Glucose [Mass/volume] in Ser um or Plasma [2345-7] 190 mg/dL N Blood chemistry[[id number]]? Glucose [Mass/volume] in Ser um or Plasma [2345-7] 107 mg/dL N Blood chemistry[[id number]]? Glucose [Mass/volume] in Ser um or Plasma [2345-7] 148 mg/dL N Blood chemistry[[id number]]? Glucose [Mass/volume] in Ser um or Plasma [2345-7] 161 mg/dL N Blood chemistry[[id number]]? Glucose [Mass/volume] in Ser um or Plasma [2345-7] 180 mg/dL N Blood chemistry[[id number]]? Glucose [Mass/volume] in Ser um or Plasma [2345-7] 207 mg/dL N Blood chemistry[[id number]]? Glucose [Mass/volume] in Ser um or Plasma [2345-7] 154 mg/dL N Blood chemistry[[id number]]? Glucose [Mass/volume] in Ser um or Plasma [2345-7] 186 mg/dL N Blood chemistry[[id number]]? Glucose [Mass/volume] in Ser um or Plasma [2345-7] 169 mg/dL N Blood chemistry[[id number]]? Glucose [Mass/volume] in Ser um or Plasma [2345-7] 189 mg/dL N Blood chemistry[[id number]]? Glucose [Mass/volume] in Ser um or Plasma [2345-7] 203 mg/dL N Tuberculosis reaction wheal[ 34351-4]? Tuberculosis reaction wheal [51466-8] 0 mm NEG Blood chemistry[[id number]]? Glucose [Mass/volume] in Ser um or Plasma [2345-7] 180 mg/dL N Blood chemistry[[id number]]? Glucose [Mass/volume] in Ser um or Plasma [2345-7] 142 mg/dL N Blood chemistry[[id number]]? Glucose [Mass/volume] in Ser um or Plasma [2345-7] 141 mg/dL N Blood chemistry[[id number]]? Glucose [Mass/volume] in Ser um or Plasma [2345-7] 128 mg/dL N Blood chemistry[[id number]]? Glucose [Mass/volume] in Ser um or Plasma [2345-7] 191 mg/dL N Tuberculosis reaction wheal[ 14169-2]? Tuberculosis reaction wheal [85307-8] See note TB test Blood chemistry[[id number]]? Glucose [Mass/volume] in Ser um or Plasma [2345-7] 181 mg/dL N Glucose [Mass/volume] in Ser um or Plasma [2345-7] 194 mg/dL N Blood chemistry[[id number]]? Glucose [Mass/volume] in Ser um or Plasma [2345-7] 152 mg/dL N Blood chemistry[[id number]]? Glucose [Mass/volume] in Ser um or Plasma [2345-7] 215 mg/dL N Blood chemistry[[id number]]? Glucose [Mass/volume] in Ser um or Plasma [2345-7] 188 mg/dL N Allergies, adverse reactions, alerts No known allergies and adverse reactions Medications Medication Instructions Route Dosage Frequency Start Date Stop Date Indications Status Percocet (oxycodone-acet aminophen) 5-325 mg tablet (Percocet (oxycodone-acet aminophen)) 1-2, oral, Other, 1-2 tabs PO Q6hrs PRN. DC when Oxy IR comes in oral 1.0 10/03 Active Santyl (collagenase clostridium histo.) 250 unit/gram ointment (Santyl (collagenase clostridium histo.)) as directed, topical, Once A Day, Cleanse RLE with NS, apply santyl to wound bed, cover with ABD and wrap with kerlex. topical 1.0 1.0 d 09/28 Active lidocaine HCl 4 % cream (lidocaine HCl) as directed, topical, Other, May apply thin layer of lidocaine to wound bed BID prior to treatments. Let sit for 3mins and gently wipe away prior to applying wet-to-dry dressing or Xeroform dressing topical 1.0 10/03 Active lidocaine HCl 2 % solution (lidocaine HCl) 1 karlene, mucous membrane, Every Shift, TID PRN oral pain 1.0 8.0 h 09/27 Active morphine 15 mg tablet extended release (morphine) 1, oral, Once - One Time - PRN, 1 time order to be given now d/t wound care per Dr. Anthony oral 1.0 09/27 Active MediHoney (honey) (honey) 80 % gel (MediHoney (honey) (honey)) as directed, topical, Once A Day, Sacrum: Cleanse with ns and gauze, apply medi-honey and cover with bordered foam daily and prn topical 1.0 1.0 d 10/12 Active lidocaine HCl 2 % solution (lidocaine HCl) 1 karlene, mucous membrane, Other, TID PRN oral pain 1.0 10/04 Active lidocaine HCl 2 % solution (lidocaine HCl) 1 karlene, mucous membrane, Every Shift, TID PRN oral pain 1.0 8.0 h 09/30 Active Tubersol (tuberculin ppd) 5 tub. unit /0.1 mL solution (Tubersol (tuberculin ppd)) 0.1ml, intradermal, Once - One Time, Administer on the day shift intraderma l 1.0 10/02 Active lidocaine HCl 4 % cream (lidocaine HCl) as directed, topical, Twice A Day, May apply thin layer of lidocaine to wound bed BID prior to treatments. Let sit for 3mins and gently wipe away prior to applying wet-to-dry dressing or Xeroform dressing topical 1.0 12.0 h 10/12 Active morphine 15 mg tablet immediate release (morphine) 1, oral, Other, q 6hrs PRN. oral 1.0 12.0 h 10/03 Active oxycodone oral immediate release 5mg tablet (oxycodone oral immediate release) 5mg to 10 mg, oral, Every 4 Hours - PRN, DC WHEN MORPHINE DELIVERS FROM PHARMACY oral 1.0 4.0 h 10/04 Active Tresiba FlexTouch U-100 (insulin degludec) 100 unit/mL (3 mL) insulin pen (Tresiba FlexTouch U-100 (insulin degludec)) 10 units, subcutaneous, At Bedtime subcutaneo us 1.0 2024 Active morphine 15 mg tablet immediate release (morphine) 1, oral, Other, q 6hrs PRN. oral 1.0 10/30 Active morphine 15 mg tablet immediate release (morphine) 1, oral, Other, q 6hrs PRN. oral 1.0 10/05 Active amoxicillin-pot clavulanate 875-125 mg tablet (amoxicillin-po t clavulanate) 1 tab, oral, Twice A Day oral 1.0 12.0 h 10/16 Active doxycycline monohydrate 100 mg tablet (doxycycline monohydrate) 1 tab, oral, Twice A Day oral 1.0 12.0 h 10/16 Active Calmoseptine (menthol-zinc oxide) 0.44-20.6 % ointment (Calmoseptine (menthol-zinc oxide)) as directed, topical, Every Shift, Apply to buttock q shift to prevent skin breakdown topical 1.0 8.0 h 2024 Active lidocaine HCl 4 % cream (lidocaine HCl) as directed, topical, Twice A Day, May apply thin layer of lidocaine to wound bed BID prior to treatments, let sit for 3mins and gently wipe away prior to applying dressing topical 1.0 12.0 h 10/24 Active Vashe (sodium chlor-hypochlor ous acid) 0.033 % irrigation solution (Vashe (sodium chlor-hypochlor ous acid)) as directed, irrigation, Every Shift, Right leg:Cleanse with vashe and gauze, apply vashe damp gauze to wound bed, and cover with abd pad, wrap with kerlix and secure with tape irrigation 1.0 8.0 h 10/14 Active furosemide 40 mg tablet (furosemide) 1 tab, oral, Twice A Day, Administer in morning and at 2 pm for edema do not ti oral 1.0 12.0 h 10/23 Active morphine concentrate 100 mg/5 mL (20 mg/mL) solution (morphine concentrate) 1ml, oral, Twice A Day, Administer 1ml 30 min prior to wound treatment, and prior to leaving for wound care appointment oral 1.0 12.0 h 2024 Active Vashe (sodium chlor-hypochlor ous acid) 0.033 % irrigation solution (Vashe (sodium chlor-hypochlor ous acid)) as directed, irrigation, Every Shift, Right leg:Cleanse with vashe and gauze, apply xeroform over exposed tendon only and then apply vashe damp gauze to entire wound bed, and cover with abd pad, wrap with kerlix and secure with tape irrigation 1.0 8.0 h 10/24 Active levofloxacin 750 mg tablet (levofloxacin) 1, oral, Once A Day oral 1.0 1.0 d 11/01 Active Eliquis (apixaban) 5 mg tablet (Eliquis (apixaban)) 1 tab, oral, Twice A Day oral 1.0 12.0 h 10/22 Active clopidogrel 75 mg tablet (clopidogrel) 1 tab, oral, Once A Day oral 1.0 1.0 d 10/19 Active Lasix (furosemide) 80 mg tablet (Lasix (furosemide)) 1 tab, oral, Twice A Day oral 1.0 12.0 h 10/31 Active potassium chloride 10 mEq tablet extended release (potassium chloride) 1 tab, oral, Twice A Day oral 1.0 12.0 h 10/31 Active spironolactone 50 mg tablet (spironolactone ) 1 tab, oral, Once A Day oral 1.0 1.0 d 2024 Active Vashe (sodium chlor-hypochlor ous acid) 0.033 % irrigation solution (Vashe (sodium chlor-hypochlor ous acid)) as directed, irrigation, Every Shift, Right leg:Cleanse with vashe and gauze, apply xeroform over exposed tendon only and then apply vashe damp gauze to entire wound bed, and cover with abd pad, wrap with kerlix and secure with tape irrigation 1.0 8.0 h 10/28 Active Aquaphor Healing (white petrolatum) 41 % ointment (Aquaphor Healing (white petrolatum)) as directed, topical, Every Shift, Apply to left heel and calf for dry cracked skin q shift topical 1.0 8.0 h 2024 Active clopidogrel 75 mg tablet (clopidogrel) 1, oral, Once A Day oral 1.0 1.0 d 2024 Active Eliquis (apixaban) 5 mg tablet (Eliquis (apixaban)) 1, oral, Twice A Day oral 1.0 12.0 h 2024 Active lidocaine HCl 2 % jelly in applicator (lidocaine HCl) 1-2, mucous membrane, Every Shift, Right maloney: Use on wound bed and allow to sit for at least 2 min prior to applying new dressing 1.0 8.0 h 2024 Active metolazone 5 mg tablet (metolazone) 1, oral, Once A Day, Daily at 0600 Do not TI oral 1.0 1.0 d 10/28 Active Glydo (lidocaine hcl) 2 % jelly in applicator (Glydo (lidocaine hcl)) 1-2 applicators, mucous membrane, Every Shift, Right maloney: Use on wound bed and allow to sit for at least 2 min prior to applying new dressing 1.0 8.0 h 10/25 Active Repatha SureClick (evolocumab) 140 mg/mL pen injector (Repatha SureClick (evolocumab)) 140 mg, subcutaneous, Once A Day on Thu Every 2 Weeks subcutaneo us 1.0 1.0 d 2024 Active morphine 30 mg tablet immediate release (morphine) 1, oral, Other, Every 6 hours PRN for pain oral 1.0 2024 Active Lasix (furosemide) 40 mg tablet (Lasix (furosemide)) 1, oral, Once A Day oral 1.0 1.0 d 2024 Active morphine 15 mg tablet immediate release (morphine) 2, oral, Other, 2 tabs Q6 PRN oral 1.0 2024 Active potassium chloride 10 mEq tablet extended release (potassium chloride) 1 tab, oral, Once A Day oral 1.0 1.0 d 2024 Active Bactrim DS (sulfamethoxazo le-trimethoprim ) 800-160 mg tablet (Bactrim DS (sulfamethoxazo le-trimethoprim )) 1, oral, Twice A Day oral 1.0 12.0 h 11/12 Active hydrocodone /apap 10/325 10/325mg tablet (hydrocodone /apap 10/325) 10/325mg, oral, Every 6 Hours - PRN, hydrocodone 10/325mg one tablet q 6 hours prn pain until MSIR 15mg tablets delivered oral 1.0 6.0 h 2024 Active Vital Signs Date Vital Result Comment 09/26/2024 03:47 PM Body Height 69 [in_us] 09/26/2024 01:35 PM Temperature 98.5 [degF] Oxygen Saturation 97 % Respiratory Rate 20 /min Heart Rate 97 /min Blood Pressure Systolic 94 mm[Hg] Blood Pressure Diastolic 53 mm[Hg] Body Weight 197.6 [lb_av] Body Mass Index 29.18 kg/m2 09/26/2024 01:34 PM Body Weight 197.6 [lb_av] Body Mass Index 29.18 kg/m2 09/25/2024 10:47 PM Temperature 97 [degF] Oxygen Saturation 96 % Respiratory Rate 16 /min Heart Rate 66 /min Blood Pressure Systolic 135 mm[Hg] Blood Pressure Diastolic 77 mm[Hg] 09/27/2024 03:46 PM Body Weight 200 [lb_av] Body Mass Index 29.53 kg/m2 09/27/2024 03:45 PM Temperature 97.7 [degF] Oxygen Saturation 96 % Respiratory Rate 20 /min Heart Rate 94 /min Blood Pressure Systolic 108 mm[Hg] Blood Pressure Diastolic 78 mm[Hg] 09/26/2024 07:56 PM Temperature 97.1 [degF] Oxygen Saturation 96 % Respiratory Rate 18 /min Heart Rate 62 /min Blood Pressure Systolic 81 mm[Hg] Blood Pressure Diastolic 60 mm[Hg] 09/28/2024 02:30 PM Temperature 98.2 [degF] Oxygen Saturation 97 % Respiratory Rate 18 /min Heart Rate 94 /min Blood Pressure Systolic 91 mm[Hg] Blood Pressure Diastolic 59 mm[Hg] 09/28/2024 12:37 PM Body Weight 202 [lb_av] Body Mass Index 29.83 kg/m2 09/27/2024 07:21 PM Temperature 97.2 [degF] Oxygen Saturation 97 % Respiratory Rate 19 /min Heart Rate 109 /min Blood Pressure Systolic 100 mm[Hg] Blood Pressure Diastolic 76 mm[Hg] 09/29/2024 04:49 PM Body Weight 204 [lb_av] Body Mass Index 30.12 kg/m2 09/29/2024 08:40 AM Temperature 97.8 [degF] Oxygen Saturation 96 % Respiratory Rate 20 /min Heart Rate 94 /min Blood Pressure Systolic 102 mm[Hg] Blood Pressure Diastolic 60 mm[Hg] 09/28/2024 06:53 PM Temperature 97.6 [degF] Oxygen Saturation 97 % Respiratory Rate 18 /min Heart Rate 85 /min Blood Pressure Systolic 104 mm[Hg] Blood Pressure Diastolic 82 mm[Hg] 09/30/2024 09:27 AM Temperature 97.8 [degF] Oxygen Saturation 94 % Respiratory Rate 20 /min Heart Rate 77 /min Blood Pressure Systolic 122 mm[Hg] Blood Pressure Diastolic 67 mm[Hg] 09/30/2024 04:54 PM Body Weight 204.3 [lb_av] Body Mass Index 30.17 kg/m2 09/29/2024 08:43 PM Temperature 97 [degF] Oxygen Saturation 97 % Respiratory Rate 18 /min Heart Rate 95 /min Blood Pressure Systolic 121 mm[Hg] Blood Pressure Diastolic 80 mm[Hg] 10/01/2024 08:57 AM Temperature 97.1 [degF] Oxygen Saturation 93 % Respiratory Rate 20 /min Heart Rate 103 /min Blood Pressure Systolic 96 mm[Hg] Blood Pressure Diastolic 62 mm[Hg] 09/30/2024 09:23 PM Temperature 98.1 [degF] Oxygen Saturation 95 % Respiratory Rate 20 /min Heart Rate 116 /min Blood Pressure Systolic 117 mm[Hg] Blood Pressure Diastolic 80 mm[Hg] 10/01/2024 08:26 PM Temperature 97.7 [degF] Oxygen Saturation 97 % Respiratory Rate 23 /min Heart Rate 100 /min Blood Pressure Systolic 112 mm[Hg] Blood Pressure Diastolic 79 mm[Hg] 10/01/2024 04:00 PM Body Weight 204 [lb_av] Body Mass Index 30.12 kg/m2 10/02/2024 10:27 PM Temperature 98 [degF] Oxygen Saturation 98 % Respiratory Rate 20 /min Heart Rate 98 /min Blood Pressure Systolic 107 mm[Hg] Blood Pressure Diastolic 58 mm[Hg] 10/02/2024 05:22 PM Body Weight 218.4 [lb_av] Body Mass Index 32.25 kg/m2 10/02/2024 02:22 PM Temperature 97.3 [degF] Oxygen Saturation 96 % Respiratory Rate 20 /min Heart Rate 106 /min Blood Pressure Systolic 101 mm[Hg] Blood Pressure Diastolic 59 mm[Hg] 10/03/2024 04:36 PM Body Weight 219 [lb_av] Body Mass Index 32.34 kg/m2 10/03/2024 10:10 AM Temperature 98.5 [degF] Oxygen Saturation 93 % Respiratory Rate 20 /min Heart Rate 84 /min Blood Pressure Systolic 123 mm[Hg] Blood Pressure Diastolic 71 mm[Hg] 10/04/2024 07:18 PM Temperature 98 [degF] Oxygen Saturation 98 % Respiratory Rate 20 /min Heart Rate 85 /min Blood Pressure Systolic 100 mm[Hg] Blood Pressure Diastolic 64 mm[Hg] 10/03/2024 08:15 PM Temperature 97.7 [degF] Oxygen Saturation 98 % Respiratory Rate 25 /min Heart Rate 122 /min Blood Pressure Systolic 112 mm[Hg] Blood Pressure Diastolic 83 mm[Hg] 10/04/2024 04:00 PM Temperature 97.8 [degF] Oxygen Saturation 96 % Respiratory Rate 20 /min Heart Rate 82 /min Blood Pressure Systolic 109 mm[Hg] Blood Pressure Diastolic 75 mm[Hg] Body Weight 220 [lb_av] Body Mass Index 32.48 kg/m2 10/05/2024 09:29 AM Body Weight 222.8 [lb_av] Body Mass Index 32.9 kg/m2 10/05/2024 09:40 AM Temperature 97.5 [degF] Oxygen Saturation 100 % Respiratory Rate 16 /min Heart Rate 77 /min Blood Pressure Systolic 102 mm[Hg] Blood Pressure Diastolic 70 mm[Hg] 10/06/2024 08:30 AM Oxygen Saturation 96 % 10/06/2024 08:29 AM Temperature 98.9 [degF] Respiratory Rate 21 /min Heart Rate 100 /min Blood Pressure Systolic 102 mm[Hg] Blood Pressure Diastolic 67 mm[Hg] 10/05/2024 08:48 PM Temperature 97.5 [degF] Oxygen Saturation 96 % Respiratory Rate 20 /min Heart Rate 98 /min Blood Pressure Systolic 100 mm[Hg] Blood Pressure Diastolic 58 mm[Hg] 10/07/2024 04:30 PM Body Weight 222.4 [lb_av] Body Mass Index 32.84 kg/m2 10/07/2024 05:25 PM Temperature 98.7 [degF] Oxygen Saturation 98 % Respiratory Rate 18 /min Heart Rate 99 /min Blood Pressure Systolic 103 mm[Hg] Blood Pressure Diastolic 73 mm[Hg] 10/06/2024 07:15 PM Temperature 98.4 [degF] Oxygen Saturation 97 % Respiratory Rate 21 /min Heart Rate 107 /min Blood Pressure Systolic 100 mm[Hg] Blood Pressure Diastolic 55 mm[Hg] 10/07/2024 08:01 PM Temperature 97.8 [degF] Oxygen Saturation 97 % Respiratory Rate 19 /min Heart Rate 102 /min Blood Pressure Systolic 113 mm[Hg] Blood Pressure Diastolic 66 mm[Hg] 10/08/2024 09:34 AM Temperature 98.6 [degF] Oxygen Saturation 92 % Respiratory Rate 20 /min Heart Rate 101 /min Blood Pressure Systolic 90 mm[Hg] Blood Pressure Diastolic 58 mm[Hg] 10/08/2024 11:28 AM Body Weight 229.8 [lb_av] Body Mass Index 33.93 kg/m2 10/08/2024 09:49 PM Temperature 99.3 [degF] Oxygen Saturation 96 % Respiratory Rate 21 /min Heart Rate 86 /min Blood Pressure Systolic 105 mm[Hg] Blood Pressure Diastolic 58 mm[Hg] 10/09/2024 05:20 PM Body Weight 233.2 [lb_av] Body Mass Index 34.43 kg/m2 10/09/2024 05:19 PM Temperature 98.4 [degF] Oxygen Saturation 98 % Respiratory Rate 20 /min Heart Rate 96 /min Blood Pressure Systolic 119 mm[Hg] Blood Pressure Diastolic 78 mm[Hg] 10/09/2024 10:54 PM Temperature 98.7 [degF] Oxygen Saturation 96 % Respiratory Rate 23 /min Heart Rate 73 /min Blood Pressure Systolic 107 mm[Hg] Blood Pressure Diastolic 63 mm[Hg] 10/10/2024 08:42 AM Temperature 98.9 [degF] Oxygen Saturation 96 % Respiratory Rate 16 /min Heart Rate 104 /min Blood Pressure Systolic 112 mm[Hg] Blood Pressure Diastolic 62 mm[Hg] Body Weight 229.8 [lb_av] Body Mass Index 33.93 kg/m2 10/11/2024 06:41 PM Temperature 98.1 [degF] Oxygen Saturation 94 % Respiratory Rate 18 /min Heart Rate 64 /min Blood Pressure Systolic 100 mm[Hg] Blood Pressure Diastolic 64 mm[Hg] 10/11/2024 12:34 PM Body Weight 227.5 [lb_av] Body Mass Index 33.59 kg/m2 10/11/2024 08:18 AM Temperature 98.9 [degF] Oxygen Saturation 92 % Respiratory Rate 20 /min Heart Rate 98 /min Blood Pressure Systolic 163 mm[Hg] Blood Pressure Diastolic 77 mm[Hg] 10/11/2024 02:46 AM Temperature 97.3 [degF] Oxygen Saturation 97 % Respiratory Rate 18 /min Heart Rate 103 /min Blood Pressure Systolic 146 mm[Hg] Blood Pressure Diastolic 88 mm[Hg] 10/12/2024 09:42 AM Body Weight 229.8 [lb_av] Body Mass Index 33.93 kg/m2 10/12/2024 09:36 AM Temperature 97.5 [degF] Oxygen Saturation 97 % Respiratory Rate 17 /min Heart Rate 129 /min Blood Pressure Systolic 105 mm[Hg] Blood Pressure Diastolic 64 mm[Hg] 10/13/2024 01:26 PM Temperature 98.3 [degF] Oxygen Saturation 96 % Respiratory Rate 24 /min Heart Rate 135 /min Blood Pressure Systolic 101 mm[Hg] Blood Pressure Diastolic 70 mm[Hg] 10/13/2024 09:24 AM Body Weight 231.4 [lb_av] Body Mass Index 34.17 kg/m2 10/12/2024 07:28 PM Temperature 97.7 [degF] Oxygen Saturation 98 % Respiratory Rate 14 /min Heart Rate 94 /min Blood Pressure Systolic 138 mm[Hg] Blood Pressure Diastolic 64 mm[Hg] 10/14/2024 09:40 PM Temperature 99 [degF] Oxygen Saturation 96 % Respiratory Rate 22 /min Heart Rate 107 /min Blood Pressure Systolic 105 mm[Hg] Blood Pressure Diastolic 68 mm[Hg] 10/14/2024 05:22 PM Temperature 97.9 [degF] Oxygen Saturation 96 % Respiratory Rate 17 /min Heart Rate 109 /min Blood Pressure Systolic 136 mm[Hg] Blood Pressure Diastolic 84 mm[Hg] 10/14/2024 03:56 PM Body Weight 229.8 [lb_av] Body Mass Index 33.93 kg/m2 10/13/2024 08:00 PM Temperature 97.6 [degF] Oxygen Saturation 97 % Respiratory Rate 15 /min Heart Rate 120 /min Blood Pressure Systolic 138 mm[Hg] Blood Pressure Diastolic 76 mm[Hg] 10/15/2024 08:45 PM Temperature 97.4 [degF] Oxygen Saturation 99 % Respiratory Rate 25 /min Heart Rate 115 /min Blood Pressure Systolic 111 mm[Hg] Blood Pressure Diastolic 62 mm[Hg] 10/15/2024 12:42 PM Body Weight 226.6 [lb_av] Body Mass Index 33.46 kg/m2 10/15/2024 09:46 AM Temperature 97.8 [degF] Oxygen Saturation 96 % Respiratory Rate 20 /min Heart Rate 87 /min Blood Pressure Systolic 108 mm[Hg] Blood Pressure Diastolic 72 mm[Hg] 10/16/2024 09:36 AM Temperature 97.6 [degF] Oxygen Saturation 97 % Respiratory Rate 18 /min Heart Rate 104 /min Blood Pressure Systolic 117 mm[Hg] Blood Pressure Diastolic 77 mm[Hg] 10/16/2024 07:47 PM Temperature 98.6 [degF] Oxygen Saturation 97 % Respiratory Rate 23 /min Heart Rate 115 /min Blood Pressure Systolic 128 mm[Hg] Blood Pressure Diastolic 91 mm[Hg] 10/17/2024 08:11 PM Temperature 98.6 [degF] Oxygen Saturation 99 % Respiratory Rate 18 /min Heart Rate 87 /min Blood Pressure Systolic 108 mm[Hg] Blood Pressure Diastolic 63 mm[Hg] 10/17/2024 02:46 PM Body Weight 231 [lb_av] Body Mass Index 34.11 kg/m2 10/17/2024 08:53 AM Temperature 97.6 [degF] Oxygen Saturation 96 % Respiratory Rate 20 /min Heart Rate 93 /min Blood Pressure Systolic 134 mm[Hg] Blood Pressure Diastolic 71 mm[Hg] 10/18/2024 08:16 AM Temperature 97.6 [degF] Oxygen Saturation 97 % Respiratory Rate 16 /min Heart Rate 62 /min Blood Pressure Systolic 112 mm[Hg] Blood Pressure Diastolic 58 mm[Hg] 10/19/2024 03:30 PM Body Weight 229.8 [lb_av] Body Mass Index 33.93 kg/m2 10/19/2024 08:40 AM Temperature 98.7 [degF] Oxygen Saturation 99 % Respiratory Rate 18 /min Heart Rate 136 /min Blood Pressure Systolic 97 mm[Hg] Blood Pressure Diastolic 70 mm[Hg] 10/18/2024 08:20 PM Temperature 98.2 [degF] Oxygen Saturation 98 % Respiratory Rate 18 /min Heart Rate 110 /min Blood Pressure Systolic 130 mm[Hg] Blood Pressure Diastolic 64 mm[Hg] 10/20/2024 12:22 PM Oxygen Saturation 94 % Respiratory Rate 20 /min 10/20/2024 12:21 PM Temperature 98.9 [degF] Heart Rate 110 /min Blood Pressure Systolic 142 mm[Hg] Blood Pressure Diastolic 80 mm[Hg] 10/19/2024 08:00 PM Temperature 98.7 [degF] Oxygen Saturation 92 % Respiratory Rate 20 /min Heart Rate 134 /min Blood Pressure Systolic 140 mm[Hg] Blood Pressure Diastolic 80 mm[Hg] 10/21/2024 08:23 AM Temperature 98.7 [degF] Oxygen Saturation 97 % Respiratory Rate 20 /min Heart Rate 128 /min Blood Pressure Systolic 93 mm[Hg] Blood Pressure Diastolic 58 mm[Hg] 10/20/2024 08:29 PM Temperature 98.3 [degF] Oxygen Saturation 97 % Respiratory Rate 19 /min Heart Rate 101 /min Blood Pressure Systolic 100 mm[Hg] Blood Pressure Diastolic 48 mm[Hg] 10/21/2024 05:40 PM Body Weight 229.4 [lb_av] Body Mass Index 33.87 kg/m2 10/22/2024 09:03 AM Temperature 97.4 [degF] Oxygen Saturation 95 % Respiratory Rate 22 /min Heart Rate 126 /min Blood Pressure Systolic 133 mm[Hg] Blood Pressure Diastolic 62 mm[Hg] 10/22/2024 12:41 AM Temperature 98 [degF] Oxygen Saturation 90 % Respiratory Rate 21 /min Heart Rate 118 /min Blood Pressure Systolic 101 mm[Hg] Blood Pressure Diastolic 69 mm[Hg] 10/23/2024 12:08 AM Temperature 98.5 [degF] Oxygen Saturation 96 % Respiratory Rate 22 /min Heart Rate 101 /min Blood Pressure Systolic 107 mm[Hg] Blood Pressure Diastolic 63 mm[Hg] 10/22/2024 09:02 PM Body Weight 236.8 [lb_av] Body Mass Index 34.97 kg/m2 10/23/2024 10:06 PM Temperature 97.8 [degF] Oxygen Saturation 90 % Respiratory Rate 17 /min Heart Rate 98 /min Blood Pressure Systolic 95 mm[Hg] Blood Pressure Diastolic 64 mm[Hg] 10/23/2024 06:46 PM Temperature 97.2 [degF] Oxygen Saturation 94 % Respiratory Rate 20 /min Heart Rate 86 /min Blood Pressure Systolic 124 mm[Hg] Blood Pressure Diastolic 72 mm[Hg] 10/23/2024 07:06 AM Body Weight 237.2 [lb_av] Body Mass Index 35.02 kg/m2 10/24/2024 06:46 PM Temperature 98.1 [degF] Oxygen Saturation 94 % Respiratory Rate 19 /min Heart Rate 107 /min Blood Pressure Systolic 143 mm[Hg] Blood Pressure Diastolic 87 mm[Hg] 10/24/2024 06:59 AM Body Weight 236 [lb_av] Body Mass Index 34.85 kg/m2 10/25/2024 06:33 PM Temperature 97.4 [degF] Oxygen Saturation 97 % Respiratory Rate 17 /min Heart Rate 98 /min Blood Pressure Systolic 114 mm[Hg] Blood Pressure Diastolic 73 mm[Hg] 10/25/2024 12:36 PM Body Weight 234.2 [lb_av] Body Mass Index 34.58 kg/m2 10/24/2024 09:23 PM Temperature 96.5 [degF] Oxygen Saturation 96 % Respiratory Rate 15 /min Heart Rate 128 /min Blood Pressure Systolic 108 mm[Hg] Blood Pressure Diastolic 68 mm[Hg] 10/26/2024 12:15 PM Temperature 97.8 [degF] Oxygen Saturation 99 % Respiratory Rate 24 /min Heart Rate 130 /min Blood Pressure Systolic 100 mm[Hg] Blood Pressure Diastolic 60 mm[Hg] 10/26/2024 11:07 AM Body Weight 221.2 [lb_av] Body Mass Index 32.66 kg/m2 10/25/2024 09:12 PM Temperature 98.2 [degF] Oxygen Saturation 100 % Respiratory Rate 21 /min Heart Rate 69 /min Blood Pressure Systolic 106 mm[Hg] Blood Pressure Diastolic 69 mm[Hg] 10/27/2024 05:20 PM Temperature 98.6 [degF] Oxygen Saturation 99 % Respiratory Rate 20 /min Heart Rate 95 /min Blood Pressure Systolic 88 mm[Hg] Blood Pressure Diastolic 57 mm[Hg] Body Weight 219.8 [lb_av] Body Mass Index 32.46 kg/m2 10/26/2024 10:14 PM Temperature 97.2 [degF] Oxygen Saturation 98 % Respiratory Rate 22 /min Heart Rate 100 /min Blood Pressure Systolic 130 mm[Hg] Blood Pressure Diastolic 78 mm[Hg] 10/27/2024 11:52 PM Temperature 97 [degF] Oxygen Saturation 95 % Respiratory Rate 16 /min Heart Rate 80 /min Blood Pressure Systolic 134 mm[Hg] Blood Pressure Diastolic 78 mm[Hg] 10/29/2024 02:33 PM Body Weight 207.6 [lb_av] Body Mass Index 30.65 kg/m2 10/28/2024 06:38 PM Temperature 96.9 [degF] Oxygen Saturation 92 % Respiratory Rate 16 /min Heart Rate 69 /min Blood Pressure Systolic 120 mm[Hg] Blood Pressure Diastolic 90 mm[Hg] 10/29/2024 12:03 AM Temperature 98.8 [degF] Oxygen Saturation 97 % Respiratory Rate 20 /min Heart Rate 127 /min Blood Pressure Systolic 138 mm[Hg] Blood Pressure Diastolic 84 mm[Hg] 10/29/2024 02:32 PM Temperature 98.2 [degF] Oxygen Saturation 96 % Respiratory Rate 19 /min Heart Rate 91 /min Blood Pressure Systolic 100 mm[Hg] Blood Pressure Diastolic 57 mm[Hg] 10/28/2024 06:39 PM Body Weight 220 [lb_av] Body Mass Index 32.48 kg/m2 10/30/2024 08:54 AM Temperature 97.6 [degF] Oxygen Saturation 99 % Respiratory Rate 20 /min Heart Rate 88 /min Blood Pressure Systolic 95 mm[Hg] Blood Pressure Diastolic 63 mm[Hg] 10/29/2024 08:33 PM Temperature 98.4 [degF] Oxygen Saturation 99 % Respiratory Rate 23 /min Heart Rate 83 /min Blood Pressure Systolic 94 mm[Hg] Blood Pressure Diastolic 55 mm[Hg] 10/30/2024 03:02 PM Body Weight 203.6 [lb_av] Body Mass Index 30.06 kg/m2 10/31/2024 10:38 AM Temperature 97.7 [degF] Oxygen Saturation 97 % Respiratory Rate 18 /min Heart Rate 85 /min Blood Pressure Systolic 86 mm[Hg] Blood Pressure Diastolic 50 mm[Hg] 10/31/2024 09:21 PM Temperature 98.5 [degF] Oxygen Saturation 97 % Respiratory Rate 22 /min Heart Rate 60 /min Blood Pressure Systolic 90 mm[Hg] Blood Pressure Diastolic 58 mm[Hg] 11/01/2024 12:46 PM Body Weight 206.8 [lb_av] Body Mass Index 30.54 kg/m2 11/01/2024 12:49 PM Body Weight 206.4 [lb_av] Body Mass Index 30.48 kg/m2 11/01/2024 05:24 PM Temperature 98.3 [degF] Oxygen Saturation 97 % Respiratory Rate 16 /min Heart Rate 90 /min Blood Pressure Systolic 88 mm[Hg] Blood Pressure Diastolic 51 mm[Hg] 11/01/2024 12:45 PM Temperature 97.8 [degF] Oxygen Saturation 99 % Respiratory Rate 16 /min Heart Rate 90 /min Blood Pressure Systolic 95 mm[Hg] Blood Pressure Diastolic 53 mm[Hg] 11/01/2024 08:24 PM Temperature 98.3 [degF] Oxygen Saturation 92 % Respiratory Rate 16 /min Heart Rate 88 /min Blood Pressure Systolic 88 mm[Hg] Blood Pressure Diastolic 60 mm[Hg] 11/02/2024 05:13 PM Temperature 98.3 [degF] Oxygen Saturation 92 % Respiratory Rate 18 /min Heart Rate 73 /min Blood Pressure Systolic 98 mm[Hg] Blood Pressure Diastolic 51 mm[Hg] 11/03/2024 04:19 PM Body Weight 212 [lb_av] Body Mass Index 31.3 kg/m2 11/03/2024 04:17 PM Temperature 98.5 [degF] Oxygen Saturation 95 % Respiratory Rate 18 /min Heart Rate 83 /min Blood Pressure Systolic 90 mm[Hg] Blood Pressure Diastolic 47 mm[Hg] 11/02/2024 06:54 PM Temperature 98 [degF] Oxygen Saturation 96 % Respiratory Rate 19 /min Heart Rate 73 /min Blood Pressure Systolic 86 mm[Hg] Blood Pressure Diastolic 46 mm[Hg] 11/04/2024 05:39 PM Temperature 98.5 [degF] Oxygen Saturation 99 % Respiratory Rate 18 /min Heart Rate 121 /min Blood Pressure Systolic 108 mm[Hg] Blood Pressure Diastolic 73 mm[Hg] 11/04/2024 12:54 PM Body Weight 207 [lb_av] Body Mass Index 30.57 kg/m2 11/03/2024 07:50 PM Temperature 98 [degF] Oxygen Saturation 96 % Respiratory Rate 20 /min Heart Rate 100 /min Blood Pressure Systolic 90 mm[Hg] Blood Pressure Diastolic 50 mm[Hg] 11/04/2024 08:56 PM Temperature 97.7 [degF] Oxygen Saturation 99 % Respiratory Rate 23 /min Heart Rate 90 /min Blood Pressure Systolic 121 mm[Hg] Blood Pressure Diastolic 56 mm[Hg] Social History No smoking Hx information available Encounters Type CPT Code Date Location Provider Indication s encounter report 09/23/2024 01:5 9 PM - 10/10/2024 10:30 AM Yusuf Rivera DO encounter report 09/23/2024 01:5 9 PM - 11/05/2024 10:43 AM Yusuf Rivera DO
--- OUTSIDE RECORDS SUMMARY | 2024-11-05 16:15 | XMS_ITS ---
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 Name Role Phone Kevon Cervantes Primary Care Provider Luther Ibarra Unavailable [phone] Migration, Provider Unavailable Unavailable REASON FOR VISIT EMR-Jack Medications Medication SIG (Take, Route, Frequency, Duration) Notes Start Date End Date Status ibuprofen 1600mg *Reorder from [facility] for eRx and Interaction Alerts* Active [facility]obenzaprine [facility]* Active Ventolin HFA *Pick strength-f orm from [facility] for eRX* Active Amlodipine *[facility]* Active Hydralazine *Reorder from [facility] for eRx and Interaction Alerts* Active Stiolto Respimat *Pick strength- form from [facility] for eRX* Active atorvastatin *[facility]* Active isosorbide (bulk) *[facility] Interaction [facility]* Active tamsulosin 0.4mg *Reorder from [facility] for eRx and Interaction Alerts* Active Spironolactone *Pick strength-f orm from [facility] for eRX* Active Naproxen *Pick strength-f orm from [facility] for eRX* Active clopidogrel *Reorder from [facility] for eRx and Interaction Alerts* Active tramadol *Reorder from [facility] for eRx and Interaction Alerts* Active duloxetine *Reorder from [facility] for eRx and Interaction Alerts* Active Entresto *Pick strength-f orm from [facility] for eRX* Active Encounters Encounter Location Date Provider Diagnosis Migrated_Facility 0 0 07/24/2024 Provider Migration Plan Of Treatment No Information Progress Notes * Yusuf BUCKDOB: 7 (59 yo M)Acc No.[id number]:07/24/2024 Patient:Yusuf BULLOCK :1965???Age:59 Y???Sex:Male Address:[address] [place] [address] Rd [facility], [place] [address] Subjective: * Chief Complaints: * ???EMR-Jack * Medical History:? * Surgical History:?Hernia sanket roverto Knee Surgery Wrist surgery * Hospitalization/Major Diagno stic Procedure:? * Family History:?Migrated Fam ender History: : Cancer, c hronic pain, D rug addiction, H eart disease, R heumatoid arthritis, S troke.? * Social History:?Migrated Social History:?Migrated Social History: Alcoholic beverages? - No, C urrently on disability? - Yes, D rug or substance abuse? - No, I nvolved in any legal proceedings or lawsuits? - No, N onprescription drug use? - No, P articipation in detoxification or rehabilitation - No, S moking - 2 PPD, S moking status (MU) - Current every day smoker, W orking currently? - No. * Medications:?TakingSpironola ctone , Notes to Pharmacist: *Pick strength-form from [facility] for eRX*Entresto , Notes to Pharmacist: *Pick strength-form from [facility] for eRX*tramadol , Notes to Pharmacist: *Reorder from [facility] for eRx and Interaction Alerts*Stiolto Respimat , Notes to Pharmacist: *Pick strength-form from [facility] for eRX*Ventolin HFA , Notes to Pharmacist: *Pick strength-form from [facility] for eRX*atorvastatin , Notes to Pharmacist: *Reorder from [facility] for eRx and Interaction Alerts*Amlodipine , Notes to Pharmacist: *Reorder from [facility] for eRx and Interaction Alerts*tamsulosin 0.4mg , Notes to Pharmacist: *Reorder from [facility] for eRx and Interaction Alerts*duloxetine , Notes to Pharmacist: *Reorder from [facility] for eRx and Interaction Alerts*ibuprofen 1600mg , Notes to Pharmacist: *[facility]*isosorbide (bulk) , Notes to Pharmacist: *[facility] and Interaction Alerts*cyclobenzaprine , Notes to Pharmacist: *[facility] and Interaction Alerts*Hydralazine , Notes to Pharmacist: *[facility] and Interaction Alerts*Naproxen , Notes to Pharmacist: *[facility]*clopidogrel , Notes to Pharmacist: *[facility] and Interaction Alerts*Taking Spironolactone , Notes to Pharmacist: *[facility]*Taking Entresto , Notes to Pharmacist: *[facility]*Taking tramadol , Notes to Pharmacist: *[facility] for [facility] and Interaction Alerts*Taking Stiolto Respimat , Notes to Pharmacist: *[facility] for [facility]*Taking Ventolin HFA , Notes to Pharmacist: *[facility] for [facility]*Taking atorvastatin , Notes to Pharmacist: *[facility] for [facility] and Interaction Alerts*Taking Amlodipine , Notes to Pharmacist: *[facility] for [facility] and Interaction Alerts*Taking tamsulosin 0.4mg , Notes to Pharmacist: *[facility] for [facility]Rx and Interaction Alerts*Taking duloxetine , Notes to Pharmacist: *[facility] for [facility]Rx and Interaction Alerts*Taking ibuprofen 1600mg , Notes to Pharmacist: *[facility] for [facility]Rx and Interaction Alerts*Taking isosorbide (bulk) , Notes to Pharmacist: *[facility] for [facility]Rx and Interaction Alerts*Taking cyclobenzaprine , Notes to Pharmacist: *[facility] for eRx and Interaction Alerts*Taking Hydralazine , Notes to Pharmacist: *[facility] for eRx and Interaction Alerts*Taking Naproxen , Notes to Pharmacist: *[facility] for [facility]*Taking clopidogrel , Notes to Pharmacist: *Reorder from [facility] for eRx and Interaction Alerts* Objective: * Vitals:? * Physical Examination:? Assessment: Plan: * Treatment: * Procedure Codes:? * * Date:?
--- OUTSIDE RECORDS SUMMARY | 2024-11-05 16:15 | XMS_ITS | Patient Health Record ---
Author Organization [facility] Address [address] [place] [address] Care Team Providers Care Associate Professor Of Management Name Role Phone Kevon Cervantes Primary Care Provider UnavailLuther Del Real Unavailable [phone] Migration, Provider Unavailable Unavailable Kevon Cervantes Unavailable [phone] Verito Powell Unavailable [phone] Sarah, Janelle Unavailable [phone] Allergies No Known Allergies Reason For Referral No Information Medications Medication SIG (Take, Route, Frequency, Duration) Notes Start Date End Date Status Spironolactone *Pick strength-form from [facility] for eRX* Not-Taking Stiolto Respimat *Pick strength-form from [facility] for eRX* Not-Taking Insulin Lispro 100 UNIT/ML as directed Subcutaneous Active tamsulosin 0.4mg *Reorder from [facility] for eRx and Interaction Alerts* Not-Taking Vashe Wound 0.033 % as directed Externally Active Breztri Aerosphere 160-9-4.8 MCG/ACT 2 puffs Inhalation Twice a day Active Acetaminophen 325 MG 1 tablet as needed Orally every 6 hrs Active Tresiba FlexTouch 100 UNIT/ML as directed Subcutaneous Active Gabapentin 300 MG 1 capsule Orally Once a day Active tramadol *Reorder from [facility] for eRx and Interaction Alerts* Not-Taking Furosemide 40 MG 1 tablet Orally Once a day Active Ventolin HFA *Pick strength-form from [facility] for eRX* Not-Taking Fluticasone Propionate 50 MCG/ACT 1 spray in each nostril Nasally Twice a day Active Eliquis 5 MG as directed Orally Active DULoxetine HCl 20 MG 1 capsule Orally Once a day Active Dulcolax 10 MG 1 suppository as needed Rectal Once a day Active Clopidogrel Bisulfate 75 MG 1 tablet Orally Once a day Active Calmoseptine 0.44-20.6 % as directed Externally Active Amlodipine *Reorder from [facility] for eRx and Interaction Alerts* Not-Taking atorvastatin *Reorder from [facility] for eRx and Interaction Alerts* Not-Taking Lidocaine 4 % 1 application as needed Externally Three times a day Active DULoxetine HCl 30 mg take 1 capsule BY MOUTH TWICE DAILY for 30 Active Isosorbide Mononitrate ER 30 MG 1/2 tablet in the morning Orally Once a day 10/18/2024 Active Tamsulosin HCl 0.4 MG 1 capsule Orally Once a day Active clopidogrel *Reorder from [facility] for eRx and Interaction Alerts* Not-Taking Sucralfate 1 GM 1 tablet on an empty stomach Orally Twice a day Active cyclobenzaprine *Reorder from [facility] for eRx and Interaction Alerts* Not-Taking Ranolazine ER 500 MG 1 tablet Orally Twice a day Active duloxetine *Reorder from [facility] for eRx and Interaction Alerts* Not-Taking Potassium Chloride ER 10 MEQ 1 capsule with food Orally Twice a day Active Entresto *Pick strength-form from [facility] for eRX* Not-Taking Omeprazole 20 MG 1 capsule 1/2 to 1 hour before morning meal Orally Once a day Active Hydralazine *Reorder from [facility] for eRx and Interaction Alerts* Not-Taking Nicotine 14 MG/24HR 1 patch to skin Transdermal Once a day Active ibuprofen 1600mg *Reorder from [facility] for eRx and Interaction Alerts* Not-Taking Morphine Sulfate (Concentrate) 100 MG/5ML 1 mL as needed Orally every 4 hrs Active isosorbide (bulk) *Reorder from [facility] for eRx and Interaction Alerts* Not-Taking Morphine Sulfate 15 MG 1 tablet as needed Orally every 4 hrs Active Naproxen *Pick strength-form from [facility] for eRX* Not-Taking Social History Tobacco Use: Social History Observation Description Date Details (start date - stop date) Former Smoker NA - NA Tobacco Control (Standard) Question Answer Notes Tobacco use: Former smoker How long has it been since you last smoked? 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) Active confirmed Vital Signs Heart Rate 128 /min 10/18/2024 Temperature 98.6 degrees Fahrenheit 10/18/2024 Respiratory Rate 20 /min 10/18/2024 Blood pressure diastolic 76 mm Hg 10/18/2024 Oximetry 100 % 10/18/2024 Height-cm 177.80 cm 10/18/2024 Weight-kg 104.78 kg 10/18/2024 Height 70.00 in 10/18/2024 Blood pressure systolic 142 mm Hg 10/18/2024 Weight 231 lbs 10/18/2024 BMI 33.14 kg/m2 10/18/2024 Encounters Encounter Location Date Provider Diagnosis Migrated_Facility 0 0 12/31/2023 Provider Migration Chronic pain syndrome G89.4 ; Unilateral primary osteoarthritis, right knee M17.11 ; Unilateral primary osteoarthritis, left knee M17.12 ; Other spondylosis with radiculopathy, lumbosacral region M47.27 ; Other intervertebral disc degeneration, lumbar region M51.36 ; Radiculopathy, cervical region M54.12 ; Unspecified abnormalities of gait and mobility R26.9 ; Tobacco use Z72.0 and FPC (current) use of opiate analgesic Z79.891 Migrated_Facility 0 0 03/03/2024 Provider Migration Chronic pain syndrome G89.4 ; Unilateral primary osteoarthritis, right knee M17.11 ; Unilateral primary osteoarthritis, left knee M17.12 ; Other spondylosis with radiculopathy, lumbosacral region M47.27 ; Other intervertebral disc degeneration, lumbar region M51.36 ; Radiculopathy, cervical region M54.12 ; Unspecified abnormalities of gait and mobility R26.9 ; Tobacco use Z72.0 and spout tender (current) use of opiate analgesic Z79.891 [facility] [place] [address] [place] [address] 04/27/2024 Kevon Cervantes [facility] [place] [address] [place] [address] 06/30/2024 Verito Powell [facility] [address] [place] [address], [place] [address] 10/18/2024 Luther Montano Atherosclerosis of [place] artery of left lower extremity with gangrene I70.262 Migrated_Facility 0 0 07/23/2024 Provider Migration Migrated_Facility 0 0 07/24/2024 Provider Migration Assessments Encounter Date Diagnosis (ICD Code) Assessment Notes Treatment Notes Treatment Clinical Notes Section Notes 12/31/2023 Chronic pain syndrome (ICD-10 - G89.4) 12/31/2023 Unilateral primary osteoarthritis, right knee (ICD-10 - M17.11) 12/31/2023 Unilateral primary osteoarthritis, left knee (ICD-10 - M17.12) 12/31/2023 Other spondylosis with radiculopathy, lumbosacral region (ICD-10 - M47.27) 12/31/2023 Other intervertebral disc degeneration, lumbar region (ICD-10 - M51.36) 12/31/2023 Radiculopathy, cervical region (ICD-10 - M54.12) 12/31/2023 Unspecified abnormalities of gait and mobility (ICD-10 - R26.9) 12/31/2023 Tobacco use (ICD-10 - Z72.0) 12/31/2023 FPC (current) use of opiate analgesic (ICD-10 - Z79.891) 03/03/2024 Chronic pain syndrome (ICD-10 - G89.4) 03/03/2024 Unilateral primary osteoarthritis, right knee (ICD-10 - M17.11) 03/03/2024 Unilateral primary osteoarthritis, left knee (ICD-10 - M17.12) 03/03/2024 Other spondylosis with radiculopathy, lumbosacral region (ICD-10 - M47.27) 03/03/2024 Other intervertebral disc degeneration, lumbar region (ICD-10 - M51.36) 03/03/2024 Radiculopathy, cervical region (ICD-10 - M54.12) 03/03/2024 Unspecified abnormalities of gait and mobility (ICD-10 - R26.9) 03/03/2024 Tobacco use (ICD-10 - Z72.0) 03/03/2024 spout tender (current) use of opiate analgesic (ICD-10 - Z79.891) 10/18/2024 Atherosclerosis of [place] artery of left lower extremity with gangrene (ICD-10 - I70.262) Recent ultrasound performed suggest that his blood flow is fairly normal. The waveforms have strong upstrokes but do appear monophasic. This could be from the edema. Considering the extensiveness of his wound and continued necrosis I am going to retrieve the angiogram from [facility] to further assess and then consider a CT angiogram to confirm that he has good enough blood flow if the angiogram does not give me enough information. Plan Of Treatment No Information Insurance Providers Payer Name Payer Address Payer Phone Subscriber Number Group Number Insured Name Patient Relationship to Insured Coverage Start Date Coverage End Date [employer] Medicare Replacement [address] [address] [place] [address] [id number] Yusuf Buck Self - patient is the insured [place] Medicaid [address] [place] [address] [id number] Yusuf Buck Self - patient is the insured [facility] [address] [place] [address] Yusuf Buck Self - patient is the insured Medical (General) History Medical History History ICD Code DM11 HTN CHOLESTEROL HX: NE IRREGULAR HEART BEAT' WOUNDS ON RIGHT LEG Surgical History Surgery Date(Month/Year) Hernia surgery Knee Surgery Wrist surgery Hospitalization History Reason Date(Month/Year) 08/31-09/23 [facility] 08/2024
--- OUTSIDE RECORDS SUMMARY | 2024-11-05 16:16 | XMS_ITS ---
Author Organization [facility] Address [address] [place] [address] Care Team Providers Care Placing Judge Name Role Phone Kevon Cervantes Primary Care Provider Luther Ibarra Unavailable [phone] Janelle Smith Unavailable [phone] REASON FOR VISIT 2 mo Encounters Encounter Location Date Provider Diagnosis [facility] [address] [address] 09/29/2024 Janelle Smith Plan Of Treatment No Information Progress Notes * Yusuf BUCKDOB: [birth year] (59 yo M)Acc No.[id number]:09/29/2024 Progress Notes Patient:?Yusuf BUCK Provider:?Janelle Smith PA-C :1965???Age:59 Y???Sex:Male Klever e:09/29/2024 Address:[address] [place] [address], [facility] Pcp:Kevon Cervantes Subjective: * Chief Complaints: * ???1. 2 mo. * HPI: ???Pain Details:?Pain Location?___.?Quality?___.?Severity of pain at its worst?___.?Severity of pain at its best?___.?Severity of pain on medication?___.?Severity of average pain?___.?Severity of pain right now?___.?When did you last take your pain medicine?___.?Medication Details:?Do you have a lock box or safe place for medication away from minors and/or others??Yes.?Do you have any leftover pain medication building up at your house??No.?Do you understand that pain medication can be addicting and can cause overdose??Yes.?Do you feel you can REDUCE the amount of medication you take today??No.?Opioid Assessment Tools:?COMM (Current Opioid Misuse Measure)?___.?Pill Count?___.?Last Urine Drug Screen?___.?Today's Rapid Urine Drug Screen?___.?[place] Prescription Monitoring Program?___.?Treatment History:?Test undergone in the past?___.?Past medication you have taken?___.?Treatments you have had?___.? * ROS:?General - Multi System:?Constitutional?Denies,?fever, recent weight gain, recent weight loss, fatigue.?Respiratory?Denies, wheezing, shortness of breath, cough, snoring.?Gastrointestinal?Denies, nausea, vomiting, constipation, abdominal pain.?Psychiatric?Denies, , anxiety, depression, panic attacks, suicidal thoughts.? * Medical History:? * Surgical History:?Hernia sanket roverto , Knee Surgery , Wrist surgery . * Family History:?Migrated Fam ender History: : Cancer, c hronic pain, D rug addiction, H eart disease, R heumatoid arthritis, S troke.? Objective: * Vitals:? Assessment: Plan: * Treatment: Forms: * Billing Information: * Visit Code:? * Procedure Codes:? Care Plan Details* * Electronic signature of WILBER Mendoza on 11/05/2024 at 04:15 PM BLOWER OPERATOR Sign off status: Pending * Provider:?Janelle Smith PA-C Date:?2024 Generated for Sylvia coreas/Mila/Jose on:?11/05/2024 04:15 PM BLOWER OPERATOR History and Physical Notes * HPI (History of Present Illness) Category Sub-Category Detail Notes Category Not es Pain Details Pain Location ___ Quality ___ Severity of pain at its worst ___ Severity of pain at its best ___ Severity of average pain ___ Severity of pain right now ___ Severity of pain on medication ___ When did you last take your pain medicin e ___ Medication Details Do you have a lock b ox or safe place for medication away from minors and/or others? Yes Do you have any leftover pain medication building up at your house? No Do you understand that pain medication c an be addicting and can cause overdose? Yes Do you feel you can REDUCE the amount of medication you take today? No Opioid Assessment Tools Pill Count ___ Last Urine Drug Screen ___ Today's Rapid Urine Drug Screen ___ [place] Prescription Monitoring Program ___ COMM (Current Opioid Misuse Measure) ___ Treatment History Test undergone in the past ___ Past medication you have taken ___ Treatments you have had ___
--- NOTE | 2024-11-05 17:28 | PHA.VACGOAL ---
Vancomycin Goal - Goal Vancomycin Goal:: 15-20 mg/L Vancomycin Indication:: SSTI (SEPSIS) - Therapy Current therapy:: Pip/Tazo Day of therpy:: Day []of [] . Actual body weight (kg): 92.079 kg - Data Labs: WBC 8.41 10^3/uL (3.29-11.43) 11/05/24 11:13 RBC 3.64 10^6/uL (3.85-5.65) L 11/05/24 11:13 Hgb 9.50 g/dL (11.27-16.99) L 11/05/24 11:13 Hct 30.9 % (37-53) L 11/05/24 11:13 MCV 84.9 fl (82-101) 11/05/24 11:13 MCH 26.1 pg (27-33) L 11/05/24 11:13 MCHC 30.7 g/dL (30-55) 11/05/24 11:13 RDW 17.3 % (12.1-15.1) H 11/05/24 11:13 Sodium 122 mmol/L (136-145) L 11/05/24 14:56 Potassium 5.7 mmol/L (3.5-5.1) H 11/05/24 14:56 Chloride 85 mmol/L (98-107) L 11/05/24 14:56 Carbon Dioxide 22 mmol/L (22-29) 11/05/24 14:56 Anion Gap 20.7 (5-19) H 11/05/24 14:56 BUN 24 mg/dL (6-20) H 11/05/24 14:56 Creatinine 0.9 mg/dL (0.7-1.2) 11/05/24 14:56 GFR Calculation 87.0 mL/min (90-130) L 11/05/24 14:56 Treatment plan:: new consult Regimen:: New start vancomycin for SSTI/sepsis. Received 2000 mg load dose. Based on previous vancomycin history from 09/06/24 will start patient on maintenance dose of 1500 mg q24h.
--- NOTE | 2024-11-05 18:05 | CTR_ITS ---
PROCEDURE INFORMATION: Exam: CT Left Upper Extremity With Contrast, Elbow Exam date and time: 11/05/2024 6:41 PM Age: 59 years old Clinical indication: Pain; Elbow; Left; Additional info: Left elbow debridment TECHNIQUE: Imaging protocol: Computed tomography of the left upper extremity with contrast. Exam focused on the elbow. Radiation optimization: All CT scans at this facility use at least one of these dose optimization techniques: automated exposure control; mA and/or kV adjustment per patient size (includes targeted exams where dose is matched to clinical indication); or iterative reconstruction. Contrast material: OMNIPAQUE 350; Contrast volume: 65 ml; Contrast route: INTRAVENOUS (IV); COMPARISON: No relevant prior studies available. RADIATION DOSE METRICS: Total DLP (mGy-cm): 1725.28 FINDINGS: Bones/joints: Normal. No acute fracture or dislocation. Soft tissues: Soft tissue hematoma overlying the posterior aspect of the olecranon. CT/CT elbow LT w con [id number] IMPRESSION: Soft tissue hematoma overlying the posterior aspect of the olecranon.
--- NOTE | 2024-11-05 18:05 | CTR_ITS ---
PROCEDURE INFORMATION: Exam: CT Right Lower Extremity, Leg Exam date and time: 11/05/2024 6:36 PM Age: 59 years old Clinical indication: Cellulitis and edema and swelling, leg or foot; No, it is generalized; Lower leg; Right; Additional info: Cellultis, wound vac, erythema TECHNIQUE: Imaging protocol: CT of the right lower extremity without contrast was performed. Exam focused on the lower leg. Radiation optimization: All CT scans at this facility use at least one of these dose optimization techniques: automated exposure control; mA and/or kV adjustment per patient size (includes targeted exams where dose is matched to clinical indication); or iterative reconstruction. COMPARISON: CT angio abd aorta runof [id number] 09/01/2024 9:53 AM RADIATION DOSE METRICS: Total DLP (mGy-cm): 1113.69 FINDINGS: Bones/joints: See Soft tissues finding. Soft tissues: Extensive soft tissue defect along the anterior and medial and posteromedial aspect of the right lower extremity with extensive underlying subcutaneous edema. No subcutaneous gas identified. No cortical irregularity or subcutaneous lucency to suggest osteomyelitis. CT/CT lower leg RT w con [id number] IMPRESSION: 1. Extensive soft tissue defect along the anterior and medial and posteromedial aspect of the right lower extremity with extensive underlying subcutaneous edema. No subcutaneous gas identified. 2. No cortical irregularity or subcutaneous lucency to suggest osteomyelitis.
[2024-11-05] MEDS: iohexol 350 mg/mL 500 mL Btl (per mL) IV (18:40)
[2024-11-05] MEDS: apixaban 5 mg Tablet PO (19:39)
[2024-11-05] MEDS: pantoprazole 40 mg SDV IVP (19:39)
[2024-11-05] MEDS: gabapentin 300 mg Capsule PO (19:39)
[2024-11-05] MEDS: morphine IR 15 mg Tablet 30 MG PO (19:39)
[2024-11-05 19:52] LABS: Glucose Point of Care 150 mg/dL (70-110)
[2024-11-05 19:58] LABS: Troponin 5 2HR 70.25 ng/L (0-15); Troponin 5 2HR Delta 9.25 ABS# (0-10)
[2024-11-05 20:07] LABS: NT Pro B Type Natriuretic Pept 6437 pg/mL (0-125)
[2024-11-05 20:10] LABS: Procalcitonin 0.07 ng/mL (0-0.5)
[2024-11-05] MEDS: insulin lispro 100 unit/1 mL SUBCUT (20:12)
[2024-11-05] MEDS: insulin glargine 100 units/1 mL 10 UNIT SUBCUT (20:12)
[2024-11-05 20:18] LABS: Anion Gap 22.9 (5-19); Blood Urea Nitrogen 22 mg/dL (6-20); C Reactive Protein 71.2 mg/L (0.0-4.9); Calcium 9.2 mg/dL (8.5-10.5); Carbon Dioxide 21 mmol/L (22-29); Chloride 84 mmol/L (98-107); Creatinine Clr Calc Pharmacy 116.1879; Glomerular Filtration Rate 99.6 mL/min (90-130); Glucose 128 mg/dL (65-115); Osmolality Calculated 259 mOsm/kg (285-295); Potassium 5.9 mmol/L (3.5-5.1); Sodium 122 mmol/L (136-145)
--- NOTE | 2024-11-05 20:59 | ECG_ITS ---
[facility] Test Date: 2024-11-05 Pat Name: Yusuf Buck Department: Room: ICU06 Gender: Male Inspector Wire Rope: : 1965 Requested By: Mg Aguilera Order Number: [id number] Sagar MD: GEOFFREY PERDUE Measurements Intervals Doran Rate: 127 P: 0 CA: 0 QRS: 23 QRSD: 88 T: 121 QT: 267 QTc: 389 Interpretive Statements ATRIAL FLUTTER/TACHYCARDIA WITH RAPID VENTRICULAR RESPONSE LOW QRS VOLTAGE IN EXTREMITY LEADS [QRS DEFLECTION < 0.5 mV IN LIMB LEADS] ANTERIOR MYOCARDIAL INFARCTION , OF INDETERMINATE AGE [40+ ms Q WAVE AND/OR ST/T ABNORMALITY IN V3/V4] MARKED ST ELEVATION, CONSIDER INFERIOR INJURY [MARKED ST ELEVATION W/O NORMALLY INFLECTED T-WAVE IN II/aVF] ACUTE AR Compared to ECG 11/05/2024 11:01:06 Low QRS voltage now present Atrial fibrillation no longer present Myocardial infarct finding still present ST (T wave) deviation still present Electronically Signed On 11-06-2024 21:08:37 CITIZENSHIP INSTRUCTOR by GEOFFREY PERDUE [email or web address]
[2024-11-05 21:37] LABS: Troponin 5 6HR 63.64 ng/L (0-15); Troponin 5 6HR Delta 2.64 ng/L (0-12)
[2024-11-05 21:43] LABS: Anion Gap 20.9 (5-19); Blood Urea Nitrogen 22 mg/dL (6-20); Calcium 8.4 mg/dL (8.5-10.5); Carbon Dioxide 21 mmol/L (22-29); Chloride 88 mmol/L (98-107); Creatinine Clr Calc Pharmacy 103.2781; Glucose 129 mg/dL (65-115); Osmolality Calculated 263 mOsm/kg (285-295); Potassium 5.9 mmol/L (3.5-5.1); Sodium 124 mmol/L (136-145)
[2024-11-05] MEDS: amiodarone 150 MG/100 ML PREMIX 400 MG IV (22:26)
[2024-11-05] MEDS: norepinephrine 4 MG/250 ML BAG 7.5 MG IV (22:27)
--- NOTE | 2024-11-05 23:12 | PC.NURSE ---
Patient has been hypotensive, bp 68/43 map o 51 and is in aflutter rvr, Dr. Tavera notified and ordered levophed drip and amioderone drip.
--- NOTE | 2024-11-05 23:50 | PC.NURSE ---
Patient is refusing lopez catheter.
[2024-11-06] VITALS (83 sets, daily range): BP systolic 71–118; BP diastolic 42–75; PULSE 70–144; RESP 14–49; TEMP 36.4–37.1; O2SAT 75–100
[2024-11-06 02:17] LABS: Basophils # 0.1 10^3/uL (0.0-0.1); Basophils % 1.1 %; Eosinophils # 0.1 10^3/uL (0.0-0.8); Eosinophils % 1.1 %; Hematocrit 28.9 % (37-53); Lymphocytes # 1.2 10^3/uL (0.8-4.8); Lymphocytes % 14.5 %; Mean Corpuscular HGB Conc 30.1 g/dL (30-55); Mean Corpuscular Hemoglobin 25.7 pg (27-33); Mean Corpuscular Volume 85.3 fl (82-101); Mean Platelet Volume 8.9 fL (7.4-10.4); Monocytes # 0.8 10^3/uL (0.2-0.9); Monocytes % 10.1 %; Neutrophils # 5.79 10^3/uL (1.8-7.7); Neutrophils % 72.4 %; Nucleated Red Blood Cells % 0 %; Platelet Count 209 10^3/cmm (157-399); Red Blood Count 3.39 10^6/uL (3.85-5.65); Red Cell Distribution Width 17.6 % (12.1-15.1)
[2024-11-06 02:34] LABS: Alanine Aminotransferase 11 U/L (0-41); Albumin Level 3.2 g/dL (3.5-5.2); Alkaline Phosphatase 200 U/L (40-130); Anion Gap 18.8 (5-19); Aspartate Amino Transferase 14 U/L (0-40); Blood Urea Nitrogen 21 mg/dL (6-20); Calcium 8.5 mg/dL (8.5-10.5); Carbon Dioxide 24 mmol/L (22-29); Chloride 90 mmol/L (98-107); Creatinine Clr Calc Pharmacy 104.4171; Globulin 3.5 g/dL (1.3-4.6); Glucose 121 mg/dL (65-115); Osmolality Calculated 268 mOsm/kg (285-295); Potassium 5.8 mmol/L (3.5-5.1); Sodium 127 mmol/L (136-145); Total Bilirubin 0.4 mg/dL (0.15-1.2); Total Protein 6.7 g/dL (6.6-8.7)
[2024-11-06] MEDS: sodium polystyrene sulfonate 15 gm/60 mL Btl PO ×2 (04:32→10:58)
[2024-11-06 06:28] LABS: Anion Gap 20.6 (5-19); Blood Urea Nitrogen 20 mg/dL (6-20); Calcium 8.6 mg/dL (8.5-10.5); Carbon Dioxide 24 mmol/L (22-29); Chloride 89 mmol/L (98-107); Creatinine Clr Calc Pharmacy 104.4171; Glucose 116 mg/dL (65-115); Osmolality Calculated 270 mOsm/kg (285-295); Potassium 5.6 mmol/L (3.5-5.1); Sodium 128 mmol/L (136-145)
[2024-11-06] MEDS: FUROsemide 10 mg/mL SDV 4mL 40 MG IVP (07:43)
[2024-11-06] MEDS: albumin 50 G/200 ML BAG 60 G IV (07:43)
[2024-11-06 08:04] LABS: Glucose Point of Care 129 mg/dL (70-110)
--- NOTE | 2024-11-06 08:06 | PM.CONSULT ---
Providers/Reason For Consult Consulting Physician/Specialty*: Dr. Bryan Ramirez, /General Surgery Reason for Consult*: Right leg wound Attending Physician: Maxwell Lucas Primary Care Provider: Yusuf Rivera DO History of Present Illness History of Present Illness Yusuf Buck is a 59 year old male who recently had ischemic ulceration and soft tissue necrosis of his right lower extremity about a month ago and underwent multiple debridements. He has been seeing wound care and getting serial debridements of this rather extensive wound. He denies any pain at the site. Appears to be healing rather well actually now. He saw Dr. Mazariegos in clinic and was referred to vascular surgery. He has been using a wound VAC on this extremity. Denies any fever or chills Review of Systems General: Reports: 10 or more systems reviewed and unremarkable except in HPI and below Medications/Allergies Home Medications ?Medication ?Instructions ?Recorded ?Confirmed ?Last Taken ?Type fluticasone propionate 50 1 spray intranasal DAILY 04/09/20 11/05/24 11/05/24 History mcg/actuation nasal spray,suspension duloxetine 20 mg capsule,delayed 20 mg PO BID 06/23/22 11/05/24 11/05/24 History release Diabetic shoes with 3 pairs of #1 ea 01/19/23 11/05/24 Unknown Rx custom molded inserts blood-glucose meter,continuous #1 ea 07/01/23 11/05/24 Unknown Rx (Dexcom G7 Senior Quality Methods Specialist) blood-glucose sensor (Dexcom G7 #9 ea 07/01/23 11/05/24 Unknown Rx Sensor device) nitroglycerin 0.4 mg sublingual See Rx Instructions .Route 04/22/24 11/05/24 Unknown Rx tablet .COMPLEX #50 tabs evolocumab 140 mg/mL subcutaneous 140 mg SUBCUT .q 2weeks #2 mL 06/15/24 11/05/24 10/31/24 Rx pen injector (Repbernadettea Angellaick) insulin lispro 100 unit/mL See Rx Instructions .Route 09/23/24 11/05/24 11/04/24 Rx subcutaneous solution (Humalog .COMPLEX #10 mL U-100 Insulin) nicotine 14 mg/24 hr daily 1 patch transdermal DAILY #28 ea 09/23/24 11/05/24 10/23/24 Rx transdermal patch acetaminophen 325 mg tablet 650 mg PO Q6H PRN Pain 09/26/24 11/05/24 10/20/24 History (Tylenol) bisacodyl 10 mg rectal suppository 10 mg AL DAILY PRN Constipation 09/26/24 11/05/24 Unknown History (Dulcolax (bisacodyl)) budesonide 160 mcg-glycopyr 9 2 inh inhalation BID 09/26/24 11/05/24 10/23/24 History mcg-formot 4.8 mcg/actuation HFA inhaler (Breztri Aerosphere) insulin degludec 100 unit/mL (3 10 unit SUBCUT QPM 10/06/24 11/05/24 11/04/24 History mL) subcutaneous pen (Tresiba FlexTouch U-100 insulin) omeprazole 20 mg capsule,delayed 20 mg PO BID 10/06/24 11/05/24 11/05/24 History release isosorbide mononitrate 30 mg 15 mg PO DAILY 10/24/24 11/05/24 11/05/24 History tablet,extended release 24 hr potassium chloride 10 mEq 10 meq PO DAILY 10/24/24 11/05/24 11/05/24 History tablet,extended release(part/cryst) ranolazine 500 mg tablet,extended 500 mg PO DAILY 10/24/24 11/05/24 11/05/24 History release,12 hr sacubitril 24 mg-valsartan 26 mg 1 tab PO DAILY 10/24/24 11/05/24 11/05/24 History tablet spironolactone 50 mg tablet 50 mg PO DAILY 10/24/24 11/05/24 11/05/24 History clopidogrel 75 mg tablet 75 mg PO DAILY #90 tabs 10/25/24 11/05/24 11/05/24 Rx apixaban 5 mg tablet (Eliquis) 5 mg PO BID 11/05/24 11/05/24 11/05/24 History furosemide 40 mg tablet 40 mg PO DAILY 11/05/24 11/05/24 11/05/24 History gabapentin 300 mg capsule 300 mg PO BID 11/05/24 11/05/24 11/05/24 History hydrocodone 10 mg-acetaminophen 1 tab PO Q6H PRN Pain 11/05/24 11/05/24 11/04/24 History 325 mg tablet lidocaine HCl 2 % mucosal jelly in 1 - 2 applic mucous membrane 11/05/24 11/05/24 11/02/24 History applicator .EVERY SHIFT menthol 0.44 %-zinc oxide 20.6 % 1 applic topical .EVERY SHIFT PRN 11/05/24 11/05/24 11/04/24 History topical ointment (Calmoseptine) Pain morphine 15 mg immediate release 30 mg PO Q6H PRN Pain 11/05/24 11/05/24 11/02/24 History tablet morphine 30 mg immediate release 30 mg PO Q6H PRN Pain 11/05/24 11/05/24 11/01/24 History tablet morphine concentrate 100 mg/5 mL 20 mg PO BID 11/05/24 11/05/24 11/04/24 History (20 mg/mL) oral solution sulfamethoxazole 800 1 tab PO BID 11/05/24 11/05/24 11/05/24 History mg-trimethoprim 160 mg tablet (Bactrim DS) tamsulosin 0.4 mg capsule 0.4 mg PO DAILY 11/05/24 11/05/24 11/05/24 History white petrolatum 41 % topical 1 applic topical Q12H 11/05/24 11/05/24 Unknown History ointment (Aquaphor Original) Allergies Allergy/AdvReac Type Severity Reaction Status Date / Time No Known Allergies Allergy Verified 10/24/24 07:52 Current Medications Generic Name Dose Route Start Last Admin Trade Name Freq PRN Reason Stop Dose Admin Amiodarone HCl 400 mg 11/06/24 10:25 11/07/24 17:32 Amiodarone 200 Mg Tablet PO 400 mg BID LAURO Administration Apixaban 5 mg 11/05/24 18:05 11/07/24 17:32 Apixaban 5 Mg Tablet PO 5 mg BID LAURO Administration Clopidogrel Bisulfate 75 mg 11/06/24 09:00 11/07/24 08:10 Clopidogrel 75 Mg Tablet PO 75 mg DAILY LAURO Administration Collagenase 1 applic 11/06/24 11:45 11/07/24 14:15 Collagenase Oint 30 Gm TOPICAL 1 applic DAILY LAURO Administration Gabapentin 300 mg 11/05/24 18:05 11/07/24 17:32 Gabapentin 300 Mg Capsule PO 300 mg BID LAURO Administration Piperacillin Sod/Tazobactam 50 mls @ 12.5 mls/hr 11/05/24 20:30 11/08/24 03:54 Sod 3.375 gm/ Sodium Chloride IV Infused Q8H LAURO Infusion Vancomycin HCl 1,500 mg in 300 mls @ 200 mls/hr 11/06/24 14:00 11/07/24 15:44 Vancocin IV Infused Q24H LAURO Infusion Norepinephrine Bitartrate 4 mg in 250 mls @ 0 mls/hr 11/05/24 22:30 11/06/24 06:00 Levophed IV 0 mcg/min .Q0M LAURO 0 mls/hr Titration Protocol Per Protocol Amiodarone HCl/Dextrose 360 mg in 200 mls @ 0 mls/hr 11/05/24 22:30 11/06/24 12:00 Nexterone IV 0 mg/min .Q0M LAURO 0 mls/hr Titration Protocol Per Protocol Insulin Glargine 10 unit 11/05/24 18:05 11/07/24 17:31 Insulin Glargine 100 Units/1 Ml SUBCUT 10 unit QPM LAURO Administration Insulin Human Lispro 0 unit 11/05/24 18:05 11/07/24 20:56 Insulin Lispro 100 Unit/1 Ml SUBCUT 6 unit WM&BEDTIME LAURO Administration Protocol Midodrine 10 mg 11/06/24 10:30 11/08/24 04:06 Midodrine 5 Mg Tablet PO 10 mg Q6H LAURO Administration Morphine Sulfate 15 mg 11/05/24 14:35 11/07/24 17:32 Morphine Er (12 Hr) 15 Mg Tablet PO 15 mg BID LAURO Administration Morphine Sulfate 30 mg 11/05/24 18:54 11/06/24 23:51 Morphine Ir 15 Mg Tablet PO 30 mg Q6H PRN Administration SEVERE PAIN Nicotine 1 patch 11/06/24 09:00 11/07/24 08:10 Nicotine 14 Mg Patch TRANSDERMA 1 patch DAILY LAURO Administration Pantoprazole Sodium 40 mg 11/05/24 18:05 11/07/24 17:31 Pantoprazole 40 Mg Sdv IVP 40 mg Q24H LAURO Administration Sodium Polystyrene Sulfonate 15 gm 11/05/24 16:00 11/06/24 10:58 Sodium Polystyrene Sulfonate 15 Gm/60 Ml Btl PO 15 gm Q6H LAURO Administration Tamsulosin HCl 0.4 mg 11/06/24 09:00 11/07/24 08:10 Tamsulosin 0.4 Mg Capsule PO 0.4 mg DAILY LAURO Administration PFSH Acute PFSH: Medical History Type 2 diabetes mellitus with other skin ulcer 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 Lower extremity edema Chronic venous insufficiency Chest pain, unspecified History of intravenous drug use in remission COPD (chronic obstructive pulmonary disease) Congestive heart failure Angina pectoris Hematuria, microscopic Acute pharyngitis, unspecified Hx of myocardial infarction Chronic low back pain Benign essential HTN Arthritis Encounter for long-term (current) use of NSAIDs Atypical chest pain Benign prostatic hyperplasia without lower urinary tract symptoms High blood pressure Hypercholesteremia Mixed hyperlipidemia Diabetes mellitus Long-term current use of opiate analgesic Pain management contract signed DDD (degenerative disc disease), lumbar Tobacco use disorder Smokes to calm his nerves Chronic pain of both knees Gastro-esophageal reflux disease without esophagitis Right testicular pain Calculus of kidney Fracture of arm Abdominal pain of unknown etiology Adhesive tendinitis Male erectile dysfunction, unspecified Abscess, dental Migraine Intervertebral disc disorders with radiculopathy, lumbar region Acute bilateral knee pain Acute left-sided low back pain Other senior care (current) drug therapy Type 2 diabetes mellitus with diabetic neuropathy, unspecified Patient continues to have neuropathy symptoms Aortic valvar stenosis Nicotine dependence, unspecified, uncomplicated Fracture of wrist Surgical History History of PTCA S/P tendon repair H/O hernia repair H/O umbilical hernia repair H/O knee surgery Family History Mother , Metastasis Cancer Hypertension Stomach ulcer Arthritis Father , Gunshot Hypertension Sister Clotting disorder Grandmother CAD (coronary artery disease) Cancer Stroke Grandfather CAD (coronary artery disease) Cancer Family/Other Suicide Other Heart disease Denies family history of Diabetes Dementia Chronic kidney disease (CKD) Anesthesia complication Bleeding disorder Lung disease Social History Smoking and tobacco/nicotine status: former use of tobacco/nicotine (2023) Alcohol intake: former Year of sobriety/quit date alcohol: 2014 Substance/Drug Use: never Lives independently: No Housing: Group Home Marital status: Legally Current occupational status: disabled Do you think of yourself as: Straight/Heterosexual Current gender identity: Male Vitals/I&O/Wt Last Vital Signs Temp 97.8 F 11/08/24 04:00 Pulse 89 11/08/24 04:55 Resp 17 11/08/24 04:00 BP 113/73 11/08/24 04:00 Pulse Ox 93 11/08/24 04:00 O2 Del Method Room Air 11/07/24 15:10 FiO2 21 11/05/24 21:14 11/07/24 11/08/24 11/08/24 22:59 06:59 14:59 Intake Total 1184 / 1714 50 / 1764 Output Total 600 / 600 400 / 1000 Balance 584 / 1114 -350 / 764 Weight last 48 hrs Weight 204 lb 14.4 oz Weight 204 lb 12.8 oz Physical Exam Narrative: General : Patient is well developed , no acute distress, oriented x3 Head : Normal cephalic, a-traumatic. Ears : Pinnae and external canal are normal. Hearing is normal. Eyes : PERRLA, Sclera and injection are normal. No conjunctival discharge. Nose : Mucous membranes are without erythema. Throat : buccal mucosa is normal, gums are without significant recession or hypertrophy. Lungs : Equal chest rise bilaterally, no use of accessory muscles, trachea is midline. Cor : Rate and rhythm are normal. Abdomen : Soft, ND, NT, no g/r/m Extremities : Right lower extremity-leg has a rather extensive healing wound with exposed tendons. There is some loose fibrinous exudate on the inferior portion but no erythema Neuro : CN II - XII intact, Upper and lower extremities have equal and full strength Data 11/09/24 09:44 11/09/24 09:44 A&P Assessment and plan (1) Wound of right lower extremity: Plan I am very pleased with the healing of this wound. I am concerned, however about the exposed tendons. The majority of his wound is ready for a skin graft, but he needs daily dry dressing with Santyl to the inferior aspect of this. We will consider skin grafting as an outpatient once he is over this acute hospitalization. I am afraid there is a high likelihood that he will eventually require amputation however Medical management per hospitalist PDMP PDMP Reviewed: Not Reviewed Coding Level of Care Code 86433 Diagnoses Wound of right lower extremity S81.559G
[2024-11-06] MEDS: morphine IR 15 mg Tablet 30 MG PO ×2 (08:37→23:51)
--- NOTE | 2024-11-06 08:49 | PM.CONSULT ---
Providers/Reason For Consult Consulting Physician/Specialty*: Dominic Hemphill MD, orthopedics Reason for Consult*: Draining sinus left elbow, infected bursa Attending Physician: Mg Aguilera MD Primary Care Provider: Yusuf Rivera DO History of Present Illness History of Present Illness Yusuf Buck is a 59 year old male with a history of a MRSA, nonhealing wounds of the lower extremity primarily the right side, swollen red left elbow over the last several weeks with a small ulceration of the central portion. Wound care clinic has been caring for him and debriding these wounds. However, it appears that they opened up his elbow bursa and now has purulent gonzalez material draining from the area. Cultures from that area did grow out MRSA also. He was seen in wound care clinic yesterday and it was felt that it was worsening. Patient was supposedly on the oral antibiotics unsure how much she was taking well. Patient is admitted also due to acute hyperkalemia and fluid overload. General surgery will be following his right lower extremity wounds however orthopedics was asked to evaluate his elbow. Review of Systems Const: Reports: fatigue and malaise; Denies: fever(s) or chills Card: Denies: chest pain Resp: Denies: dyspnea GI: Denies: abdominal pain : Denies: flank pain, dysuria, urinary frequency or urinary urgency Musc: Denies: neck pain or back pain Skin/Breast: Denies: rash Neuro: Denies: headache(s) All/Imm: Denies: acute wheezing Medications/Allergies Home Medications ?Medication ?Instructions ?Recorded ?Confirmed ?Last Taken ?Type fluticasone propionate 50 1 spray intranasal DAILY 04/09/20 11/05/24 11/05/24 History mcg/actuation nasal spray,suspension duloxetine 20 mg capsule,delayed 20 mg PO BID 06/23/22 11/05/24 11/05/24 History release Diabetic shoes with 3 pairs of #1 ea 01/19/23 11/05/24 Unknown Rx custom molded inserts blood-glucose meter,continuous #1 ea 07/01/23 11/05/24 Unknown Rx (Dexcom G7 Chute Man) blood-glucose sensor (Dexcom G7 #9 ea 07/01/23 11/05/24 Unknown Rx Sensor device) nitroglycerin 0.4 mg sublingual See Rx Instructions .Route 04/22/24 11/05/24 Unknown Rx tablet .COMPLEX #50 tabs evolocumab 140 mg/mL subcutaneous 140 mg SUBCUT .q 2weeks #2 mL 06/15/24 11/05/24 10/31/24 Rx pen injector (Amna Cisneros) insulin lispro 100 unit/mL See Rx Instructions .Route 09/23/24 11/05/24 11/04/24 Rx subcutaneous solution (Humalog .COMPLEX #10 mL U-100 Insulin) nicotine 14 mg/24 hr daily 1 patch transdermal DAILY #28 ea 09/23/24 11/05/24 10/23/24 Rx transdermal patch acetaminophen 325 mg tablet 650 mg PO Q6H PRN Pain 09/26/24 11/05/24 10/20/24 History (Tylenol) bisacodyl 10 mg rectal suppository 10 mg [place] DAILY PRN Constipation 09/26/24 11/05/24 Unknown History (Dulcolax (bisacodyl)) budesonide 160 mcg-glycopyr 9 2 inh inhalation BID 09/26/24 11/05/24 10/23/24 History mcg-formot 4.8 mcg/actuation HFA inhaler (Breztri Aerosphere) insulin degludec 100 unit/mL (3 10 unit SUBCUT QPM 10/06/24 11/05/24 11/04/24 History mL) subcutaneous pen (Tresiba FlexTouch U-100 insulin) omeprazole 20 mg capsule,delayed 20 mg PO BID 10/06/24 11/05/24 11/05/24 History release isosorbide mononitrate 30 mg 15 mg PO DAILY 10/24/24 11/05/24 11/05/24 History tablet,extended release 24 hr potassium chloride 10 mEq 10 meq PO DAILY 10/24/24 11/05/24 11/05/24 History tablet,extended release(part/cryst) ranolazine 500 mg tablet,extended 500 mg PO DAILY 10/24/24 11/05/24 11/05/24 History release,12 hr sacubitril 24 mg-valsartan 26 mg 1 tab PO DAILY 10/24/24 11/05/24 11/05/24 History tablet spironolactone 50 mg tablet 50 mg PO DAILY 10/24/24 11/05/24 11/05/24 History clopidogrel 75 mg tablet 75 mg PO DAILY #90 tabs 10/25/24 11/05/24 11/05/24 Rx apixaban 5 mg tablet (Eliquis) 5 mg PO BID 11/05/24 11/05/24 11/05/24 History furosemide 40 mg tablet 40 mg PO DAILY 11/05/24 11/05/24 11/05/24 History gabapentin 300 mg capsule 300 mg PO BID 11/05/24 11/05/24 11/05/24 History hydrocodone 10 mg-acetaminophen 1 tab PO Q6H PRN Pain 11/05/24 11/05/24 11/04/24 History 325 mg tablet lidocaine HCl 2 % mucosal jelly in 1 - 2 applic mucous membrane 11/05/24 11/05/24 11/02/24 History applicator .EVERY SHIFT menthol 0.44 %-zinc oxide 20.6 % 1 applic topical .EVERY SHIFT PRN 11/05/24 11/05/24 11/04/24 History topical ointment (Calmoseptine) Pain morphine 15 mg immediate release 30 mg PO Q6H PRN Pain 11/05/24 11/05/24 11/02/24 History tablet morphine 30 mg immediate release 30 mg PO Q6H PRN Pain 11/05/24 11/05/24 11/01/24 History tablet morphine concentrate 100 mg/5 mL 20 mg PO BID 11/05/24 11/05/24 11/04/24 History (20 mg/mL) oral solution sulfamethoxazole 800 1 tab PO BID 11/05/24 11/05/24 11/05/24 History mg-trimethoprim 160 mg tablet (Bactrim DS) tamsulosin 0.4 mg capsule 0.4 mg PO DAILY 11/05/24 11/05/24 11/05/24 History white petrolatum 41 % topical 1 applic topical Q12H 11/05/24 11/05/24 Unknown History ointment (Aquaphor Original) Allergies Allergy/AdvReac Type Severity Reaction Status Date / Time No Known Allergies Allergy Verified 10/24/24 07:52 Current Medications Generic Name Dose Route Start Last Admin Trade Name Freq PRN Reason Stop Dose Admin Apixaban 5 mg 11/05/24 18:05 11/05/24 19:39 Apixaban 5 Mg Tablet PO 5 mg BID LAURO Administration Gabapentin 300 mg 11/05/24 18:05 11/05/24 19:39 Gabapentin 300 Mg Capsule PO 300 mg BID LAURO Administration Piperacillin Sod/Tazobactam 50 mls @ 12.5 mls/hr 11/05/24 20:30 11/06/24 03:06 Sod 3.375 gm/ Sodium Chloride IV Infused Q8H LAURO Infusion Norepinephrine Bitartrate 4 mg in 250 mls @ 0 mls/hr 11/05/24 22:30 11/06/24 06:00 Levophed IV 0 mcg/min .Q0M LAURO 0 mls/hr Titration Protocol Per Protocol Amiodarone HCl/Dextrose 360 mg in 200 mls @ 0 mls/hr 11/05/24 22:30 11/06/24 04:31 Nexterone IV 0.5 mg/min .Q0M LAURO 16.67 mls/hr Administration Protocol Per Protocol Albumin Human 50 g in 200 mls @ 60 mls/hr 11/06/24 07:19 11/06/24 07:43 Albumin IV 11/06/24 10:38 60 mls/hr ONCE ONE Administration Insulin Glargine 10 unit 11/05/24 18:05 11/05/24 20:12 Insulin Glargine 100 Units/1 Ml SUBCUT 10 unit QPM LAURO Administration Insulin Human Lispro 0 unit 11/05/24 18:05 11/06/24 07:59 Insulin Lispro 100 Unit/1 Ml SUBCUT Not Given WM&BEDTIME LAURO Protocol Morphine Sulfate 15 mg 11/05/24 14:35 11/05/24 18:06 Morphine Er (12 Hr) 15 Mg Tablet PO 15 mg BID LAURO Administration Morphine Sulfate 30 mg 11/05/24 18:54 11/05/24 19:39 Morphine Ir 15 Mg Tablet PO 30 mg Q6H PRN Administration SEVERE PAIN Pantoprazole Sodium 40 mg 11/05/24 18:05 11/05/24 19:39 Pantoprazole 40 Mg Sdv IVP 40 mg Q24H LAURO Administration Sodium Polystyrene Sulfonate 15 gm 11/05/24 16:00 11/06/24 04:32 Sodium Polystyrene Sulfonate 15 Gm/60 Ml Btl PO 15 gm Q6H LAURO Administration PFSH Acute PFSH: Medical History Type 2 diabetes mellitus with other skin ulcer 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 Lower extremity edema Chronic venous insufficiency Chest pain, unspecified History of intravenous drug use in remission COPD (chronic obstructive pulmonary disease) Congestive heart failure Angina pectoris Hematuria, microscopic Acute pharyngitis, unspecified Hx of myocardial infarction Chronic low back pain Benign essential HTN Arthritis Encounter for long-term (current) use of NSAIDs Atypical chest pain Benign prostatic hyperplasia without lower urinary tract symptoms High blood pressure Hypercholesteremia Mixed hyperlipidemia Diabetes mellitus Long-term current use of opiate analgesic Pain management contract signed DDD (degenerative disc disease), lumbar Tobacco use disorder Smokes to calm his nerves Chronic pain of both knees Gastro-esophageal reflux disease without esophagitis Right testicular pain Calculus of kidney Fracture of arm Abdominal pain of unknown etiology Adhesive tendinitis Male erectile dysfunction, unspecified Abscess, dental Migraine Intervertebral disc disorders with radiculopathy, lumbar region Acute bilateral knee pain Acute left-sided low back pain Other assistant terminal manager (current) drug therapy Type 2 diabetes mellitus with diabetic neuropathy, unspecified Patient continues to have neuropathy symptoms Aortic valvar stenosis Nicotine dependence, unspecified, uncomplicated Fracture of wrist Surgical History History of PTCA S/P tendon repair H/O hernia repair H/O umbilical hernia repair H/O knee surgery Family History Mother , Metastasis Cancer Hypertension Stomach ulcer Arthritis Father , Gunshot Hypertension Sister Clotting disorder Grandmother CAD (coronary artery disease) Cancer Stroke Grandfather CAD (coronary artery disease) Cancer Family/Other Suicide Other Heart disease Denies family history of Diabetes Dementia Chronic kidney disease (CKD) Anesthesia complication Bleeding disorder Lung disease Social History Smoking and tobacco/nicotine status: former use of tobacco/nicotine (2023) Alcohol intake: former Year of sobriety/quit date alcohol: 2014 Substance/Drug Use: never Lives independently: No Housing: Shelter Marital status: Legally Current occupational status: disabled Do you think of yourself as: Straight/Heterosexual Current gender identity: Male Dietary Habits: Current diet type/program: regular and diabetic Caffeine: Yes Caffeine intake frequency: carbonated beverages Number of carbonated beverage servings: 7 and coffee Number of coffee servings: 12 Safety: Seatbelt use: sometimes Drive intoxicated or ride with intoxicated starting gate driver?: never Home Safety: Working smoke detector in home: No Firearms in home: No Vitals/I&O/Wt Last Vital Signs Temp 98.2 F 11/06/24 08:00 Pulse 103 H 11/06/24 08:00 Resp 19 H 11/06/24 08:00 BP 89/65 11/06/24 08:00 Pulse Ox 94 11/06/24 08:00 O2 Del Method Room Air 11/05/24 21:14 FiO2 21 11/05/24 21:14 11/05/24 11/06/24 11/06/24 22:59 06:59 14:59 Intake Total 703.375 / 1203.375 424.204 / 1627.579 Output Total 700 / 700 700 / 1400 550 / 550 Balance 3.375 / 503.375 -275.796 / 227.579 -550 / -550 Weight last 48 hrs Weight 207 lb 14.4 oz Weight 207 lb 14.4 oz Weight 203 lb Physical Exam Narrative: On orthopedic exam today patient is sitting up eating breakfast in his ICU room. He has Coban and gauze wrap around his left elbow with a slight shadow with drainage. I have removed this today. Patient has minimal erythema about the olecranon and bursal region of the left elbow. Did have a 4 mm x 4 mm opening in the central portion of his olecranon region with Nu Gauze packing within it. The new gauze was covered with a purulent 10 appearing exudate however no gross mentals no other abnormalities noted. All of this packing was removed. Wound was milked and found to have minimal fluid coming out of it. Patient has no tenderness to this at all. No other gross abnormalities noted. Data 11/06/24 02:08 11/06/24 05:51 Micro: Microbiology 11/05/24 11:15 Blood Culture - Preliminary Blood SPECIMEN COLLECTED 11/05/24 11:13 Blood Culture - Preliminary Blood SPECIMEN COLLECTED A&P Assessment and plan (1) Olecranon bursitis, left elbow: At this time it appears patient has had some chronic bursitis of the elbow. Patient admits to leaning on this often which is led to pain and discomfort as well as swelling. Is unclear whether he actually had a sinus going down into this or this was debrided by wound care clinic to open up to the bursa. Therefore cannot determine whether infection came before or after the debridement. (2) Wound with infection determined by examination: Plan Recommendations at this time is just dressing changes as needed, multiple times per day as indicated. Presently the patient needs IV antibiotics to get on top of his MRSA infections. I will follow during his hospital course. I have no plans for any surgical intervention. However, if general surgery feels the need to take him to the operating room to debride his legs I will reevaluate his elbow at that time to. PDMP PDMP Reviewed: Not Reviewed Consult Attestations Medical Necessity Statement: Patient in need of continued medical care per the hospitalist. Patient in need of continued IV antibiotics due to foot infection Coding Level of Care Code 48737 Diagnoses Olecranon bursitis, left elbow M70.22 Wound with infection determined by examination T14.8XXA; L08.9
--- NOTE | 2024-11-06 10:24 | P.PN_ITS ---
Subjective 2 Subjective: - Events overnight patient did require L evophed during the night, currently off of it -Did have A-fib with RVR during the nigh t, currently on amiodarone drip heart rates are well-controlled -Blood pressures are on the softer end -Patient is alert awake, following all c ommands, denies any chest pain, palpitations, does report weakness and fatigue, does tell me that his pain is under control Vitals/I&O/Wt Last Vital Signs Temp 98.2 F 11/06/24 08:00 Pulse 103 H 11/06/24 08:00 Resp 18 11/06/24 08:37 BP 89/65 11/06/24 08:00 Pulse Ox 98 11/06/24 08:37 O2 Del Method Room Air 11/05/24 21:14 FiO2 21 11/05/24 21:14 11/05/24 11/06/24 11/06/24 22:59 06:59 14:59 Intake Total 703.375 / 1203.375 424.204 / 1627.579 Output Total 700 / 700 700 / 1400 550 / 550 Balance 3.375 / 503.375 -275.796 / 227.579 -550 / -550 Weight last 48 hrs Weight 94.302 kg Weight 94.302 kg Weight 92.079 kg Physical Exam 2 Const: COMMON NORMALS: no acute distress and patient oriented x3 Resp: COMMON NORMALS: normal respiratory effort, No retractions and No use of accessory muscles AUSCULTATION: crackles and wheezes Cardio: COMMON NORMALS: S1 normal heart sound present and S2 normal heart sound present RATE: tachycardic RHYTHM: abnormal rhythm HEART SOUNDS: S 1 normal heart sound present and S2 normal heart sound present GI: COMMON NORMALS: Normal to inspection, nondistended, normoactive bowel sounds present and non-tender Extremity: NARRATIVE EXTREMITY EXAM: 1+ edema bilateral extremities wrapped Neuro: COMMON NORMALS: patient oriented x3 Psych: COMMON NORMALS: mental status grossly normal Data 11/06/24 02:08 11/06/24 05:51 Micro: Microbiology 11/05/24 11:15 Blood Culture - Preliminary Blood SPECIMEN COLLECTED 11/05/24 11:13 Blood Culture - Preliminary Blood SPECIMEN COLLECTED A&P Assessment and plan (1) Acute hyponatremia: (2) Acute hyperkalemia: (3) Benign essential HTN: (4) Congestive heart failure: Qualifiers: Heart failure type: systolic Heart failure chronicity: chronic Q ualified Code(s): I50.22 - Chronic systolic (congestive) heart failure (5) CAD (coronary artery disease): (6) Infection of left elbow: (7) Wound of right lower extremity: (8) Intractable pain: (9) Septic shock: Plan Acute hyponatremia -With history of chronic hyponatremia between 10 22- -Likely component of Bactrim toxicity Plan -Monitor BMP -Neurochecks -Seizure precautions -Appears fluid overloaded hold off on further fluid boluses Acute hyperkalemia, resolving -No chest pain, no palpitations -Monitor serum potassium every 4 hours -Likely Bactrim toxicity Plan -Has received insulin/D50/calcium gluconate -Will give Kayexalate every 6 hours -Monitor BMP Left elbow infection -Status post debridement and wound care, wound cultures growing MRSA -CT left elbow FINDINGS: Bones/joints: Normal. No acute fracture or dislocation. Soft tissues: Soft tissue hematoma overlying the posterior aspect of the olecranon. CT/CT elbow LT w con [id number] IMPRESSION: Soft tissue hematoma overlying the posterior aspect of the olecranon. -IV antibiotics of vancomycin, Zosyn -Orthopedic service consulted -Will monitor Right lower extremity wound, infection -With increased drainage from surgical site, wound care site -Wound VAC in place -Spoke to general surgery remove dressings, wound VAC, wet-to-dry Plan -CT right lower extremity CT/CT lower leg RT w con [id number] IMPRESSION: 1. Extensive soft tissue defect along the anterior and medial and posteromedial aspect of the right lower extremity with extensive underlying subcutaneous edema. No subcutaneous gas identified. 2. No cortical irregularity or subcutaneous lucency to suggest osteomyelitis. -IV antibiotics vancomycin and Zosyn -Wet-to-dry dressings -General Surgery consulted Sepsis, with septic shock -Sepsis features met as blood pressures are soft, several sources of infection including right lower extremity left elbow elevated sed rate, CRP, Pro-Tra -Requiring Levophed maintain MAP greater than 65 Atrial fibrillation with rapid ventricular response -Continue Eliquis -Continue beta-dev on hold -Amiodarone drip Evidence of fluid overload, 1+ pitting edema bilateral extremities -Place Bur[place] -1 dose of Lasix with albumin Peripheral vascular disease History of systolic CHF 32% -Currently in exacerbation with 1+ pitting edema -Will hold off on diuresis given hyponatremia -Will consider diuresis based on clinical progress repeat BMP Intractable pain -Was on morphine 30 mg p.o. every 6 hours which could not be refilled, currently on hydrocodone 10 every 6 hours which is not controlling his pain condition intractable pain -with morphine liquid 20 mg every 12 hours -Continue morphine 30 mg p.o. every 6 hours -Extended release morphine 15 mg p.o. every 12 hours Plan for today IV amiodarone, wean off Levophed, IV midodrine IV antibiotics, continue to clinically monitor closely PDMP PDMP Reviewed: Last Reviewed 11/05/24 13:37 by Mg Aguilera MD Attestations 2 Medical Necessity Statement*: Patient requires hospitalization for sepsis, septic shock, left elbow infection, right lower extremity cellulitis, A-fib with RVR, fluid overload, systolic CHF Diagnoses Acute hyponatremia E87.1 Acute hyperkalemia E87.5 Benign essential HTN I10 Chronic systolic congestive heart failure I50.22 Heart failure type: systolic Heart failure chronicity: chronic CAD (coronary artery disease) I25.10 Infection of left elbow M00.9 Wound of right lower extremity S81.801A Intractable pain R52 Septic shock A41.9; R65.21
[2024-11-06 10:31] LABS: Anion Gap 19.1 (5-19); Blood Urea Nitrogen 20 mg/dL (6-20); Calcium 8.8 mg/dL (8.5-10.5); Carbon Dioxide 25 mmol/L (22-29); Chloride 90 mmol/L (98-107); Creatinine Clr Calc Pharmacy 93.9754; Glucose 129 mg/dL (65-115); Osmolality Calculated 272 mOsm/kg (285-295); Potassium 5.1 mmol/L (3.5-5.1); Sodium 129 mmol/L (136-145)
[2024-11-06] MEDS: piperacillin-tazobactam 3.375 GM in sodium chloride 0.9% (plus) 50 ML IV ×3 (10:51→23:33)
[2024-11-06] MEDS: tamsulosin 0.4 mg Capsule PO (10:52)
[2024-11-06] MEDS: apixaban 5 mg Tablet PO ×2 (10:52→17:34)
[2024-11-06] MEDS: gabapentin 300 mg Capsule PO ×2 (10:52→17:34)
[2024-11-06] MEDS: morphine ER (12 HR) 15 mg Tablet PO ×2 (10:52→17:34)
[2024-11-06] MEDS: midodrine 5 mg TABLET 10 MG PO ×3 (10:53→21:48)
[2024-11-06] MEDS: clopidogrel 75 mg Tablet PO (10:53)
[2024-11-06] MEDS: amiodarone 200 mg Tablet 400 MG PO ×2 (10:54→17:33)
[2024-11-06] MEDS: nicotine 14 mg Patch 1 PATCH TRANSDERMA (10:54)
[2024-11-06 12:05] LABS: Glucose Point of Care 203 mg/dL (70-110)
[2024-11-06] MEDS: collagenase oint 30 gm 1 APPLIC TOPICAL (12:05)
[2024-11-06] MEDS: insulin lispro 100 unit/1 mL SUBCUT ×2 (12:21→21:02)
[2024-11-06] MEDS: vancomycin 1,500 MG/300 ML PIGGYBACK 200 MG IV (13:12)
[2024-11-06] MEDS: pantoprazole 40 mg SDV IVP (17:34)
[2024-11-06] MEDS: insulin glargine 100 units/1 mL 10 UNIT SUBCUT (17:39)
[2024-11-06 17:45] LABS: Glucose Point of Care 117 mg/dL (70-110)
[2024-11-06 19:42] LABS: Anion Gap 18.6 (5-19); Blood Urea Nitrogen 22 mg/dL (6-20); Calcium 8.6 mg/dL (8.5-10.5); Carbon Dioxide 24 mmol/L (22-29); Chloride 91 mmol/L (98-107); Creatinine Clr Calc Pharmacy 104.4171; Glucose 172 mg/dL (65-115); Osmolality Calculated 275 mOsm/kg (285-295); Potassium 4.6 mmol/L (3.5-5.1); Sodium 129 mmol/L (136-145)
[2024-11-06 20:44] LABS: Glucose Point of Care 190 mg/dL (70-110)
--- NOTE | 2024-11-06 22:37 | PC.NURSE ---
Report called to Socorro SALINAS on [facility] all questions answered. Patient wheeled up to [facility] at 2221.
[2024-11-07] VITALS (7 sets, daily range): BP systolic 95–120; BP diastolic 59–66; PULSE 69–89; RESP 15–17; TEMP 36.4–36.8; O2SAT 95–100
[2024-11-07] MEDS: midodrine 5 mg TABLET 10 MG PO ×4 (03:45→22:12)
[2024-11-07 05:38] LABS: Basophils # 0.1 10^3/uL (0.0-0.1); Basophils % 1.3 %; Eosinophils # 0.2 10^3/uL (0.0-0.8); Eosinophils % 2.1 %; Hematocrit 26.9 % (37-53); Lymphocytes # 1.4 10^3/uL (0.8-4.8); Lymphocytes % 19.6 %; Mean Corpuscular HGB Conc 30.9 g/dL (30-55); Mean Corpuscular Hemoglobin 26.1 pg (27-33); Mean Corpuscular Volume 84.6 fl (82-101); Monocytes # 0.5 10^3/uL (0.2-0.9); Monocytes % 7.7 %; Neutrophils # 4.85 10^3/uL (1.8-7.7); Neutrophils % 68.7 %; Nucleated Red Blood Cells % 0 %; Platelet Count 164 10^3/cmm (157-399); Red Blood Count 3.18 10^6/uL (3.85-5.65); Red Cell Distribution Width 17.5 % (12.1-15.1); White Blood Count 7.05 10^3/uL (3.29-11.43)
[2024-11-07 06:06] LABS: Alanine Aminotransferase 9 U/L (0-41); Albumin Level 3.5 g/dL (3.5-5.2); Alkaline Phosphatase 164 U/L (40-130); Anion Gap 18.2 (5-19); Aspartate Amino Transferase 13 U/L (0-40); Blood Urea Nitrogen 25 mg/dL (6-20); Calcium 8.8 mg/dL (8.5-10.5); Carbon Dioxide 24 mmol/L (22-29); Chloride 92 mmol/L (98-107); Creatinine Clr Calc Pharmacy 116.6588; Globulin 3.1 g/dL (1.3-4.6); Glomerular Filtration Rate 99.6 mL/min (90-130); Glucose 81 mg/dL (65-115); Osmolality Calculated 273 mOsm/kg (285-295); Phosphorus 4.6 mg/dL (2.5-4.5); Potassium 4.2 mmol/L (3.5-5.1); Sodium 130 mmol/L (136-145); Total Bilirubin 0.6 mg/dL (0.15-1.2); Total Protein 6.6 g/dL (6.6-8.7)
[2024-11-07 06:47] LABS: Glucose Point of Care 109 mg/dL (70-110)
--- NOTE | 2024-11-07 08:07 | P.PN_ITS ---
Subjective 2 Subjective: Patient seen and examined. Pain controlled Vitals/I&O/Wt Last Vital Signs Temp 97.8 F 11/08/24 04:00 Pulse 89 11/08/24 04:55 Resp 17 11/08/24 04:00 BP 113/73 11/08/24 04:00 Pulse Ox 93 11/08/24 04:00 O2 Del Method Room Air 11/07/24 15:10 FiO2 21 11/05/24 21:14 11/07/24 11/08/24 11/08/24 22:59 06:59 14:59 Intake Total 1184 / 1714 50 / 1764 Output Total 600 / 600 400 / 1000 Balance 584 / 1114 -350 / 764 Weight last 48 hrs Weight 204 lb 14.4 oz Weight 204 lb 12.8 oz Physical Exam 2 Narrative: General: No acute distress, awake alert and oriented x 3 Skin: Right lower extremity wound with a mild amount of redness exudate at the inferior portion, otherwise a healthy wound bed Data 11/08/24 05:45 11/08/24 05:45 A&P Assessment and plan (1) Wound of right lower extremity: Plan Continue daily dressing changes with dry dressing and Santyl to the fibrinous exudate at the inferior portion Looks like he will be ready for a skin graft in the near future as an outpatient Medical management per hospitalist PDMP PDMP Reviewed: Not Reviewed Attestations 2 Medical Necessity Statement*: Per primary Coding Level of Care Code 07921 Diagnoses Wound of right lower extremity S81.801A
[2024-11-07] MEDS: amiodarone 200 mg Tablet 400 MG PO ×2 (08:10→17:32)
[2024-11-07] MEDS: clopidogrel 75 mg Tablet PO (08:10)
[2024-11-07] MEDS: gabapentin 300 mg Capsule PO ×2 (08:10→17:32)
[2024-11-07] MEDS: tamsulosin 0.4 mg Capsule PO (08:10)
[2024-11-07] MEDS: piperacillin-tazobactam 3.375 GM in sodium chloride 0.9% (plus) 50 ML IV ×3 (08:10→23:35)
[2024-11-07] MEDS: morphine ER (12 HR) 15 mg Tablet PO ×2 (08:10→17:32)
[2024-11-07] MEDS: apixaban 5 mg Tablet PO ×2 (08:10→17:32)
[2024-11-07] MEDS: nicotine 14 mg Patch 1 PATCH TRANSDERMA (08:10)
--- NOTE | 2024-11-07 10:06 | PC.CHAP ---
Pastoral Care Encounter/Spiritual Assessment Type of Contact [] Declined construction superintendent visit [] Patient/Family/Request visit [] Outpatient visit [] Follow-up visit [] Physician referral [] Code/Alert [x] Routine visit [] Staff referral [] Actively dying [] Patient sleeping [] Family support [] [] Out of room [] Palliative care [] [] Receiving care in room [] Pre-surgical visit [] Trauma [] Long length of stay [] ICU visit [] Other: Relational/Emotional Strength [] Patient feels connected with others/family/visitors/staff [] Distress [] Loneliness/isolation [] Abandonment Spirituality of Patient [] Person of Pavithra [] Attends Gnosticist of their Pavithra [] Believes in Prayer [] Reads Bible or Advent materials [] There are Spiritual issues to be addressed Infrastructure Architect Interventions [] Prayer [] Active listening [] Non-anxious presence [] Spiritual/emotional support [] Crisis/trauma care [] Spiritual counseling [] Bereavement support [] Provided bereavement packet [] Provided Bible/devotional materials [] Provided toy/stuffed animal, coloring book to patient or family member [] Provided Communion [] Anointing/[place] [] Salvation [] Completed spiritual assessment [] Other: Impact on Illness or Injury [] Angry [] Fearful [] Anxious [] Often cries [] Exhaustion [] Unable to work [] Unable to attend orthodoxy [] Unable to walk/stand [] Unable to read [] Unable to drive [] Unable to eat/drink [] Unable to sleep [] Unable to be with family [] Patient intubated [] Other: Summary precaution Time spent with patient
[2024-11-07 11:28] LABS: Glucose Point of Care 156 mg/dL (70-110)
[2024-11-07] MEDS: insulin lispro 100 unit/1 mL SUBCUT ×2 (12:27→20:56)
[2024-11-07] MEDS: vancomycin 1,500 MG/300 ML PIGGYBACK 200 MG IV (14:14)
[2024-11-07] MEDS: collagenase oint 30 gm 1 APPLIC TOPICAL (14:15)
--- NOTE | 2024-11-07 15:24 | PC.SOCIAL ---
IMM updated IMM dated and initialed, copy given to patient and copy placed in chart
--- NOTE | 2024-11-07 15:38 | P.PN_ITS ---
Subjective 2 Subjective: Hospital Course: 59-year-old male with a past medical his tory of chronic obstructive pulmonary disease, hypertension, dyslipidemia, diabetes mellitus, chronic heart failure with reduced ejection fraction last noted to be 32% in August 2024, benign prostatic hyperplasia, history of IVDA in remission, paroxysmal atrial fibrillation on Eliquis, and peripheral vascular disease who was hospitalized in August with acute ischemia status post percutaneous revascularization with balloon angioplasty followed by mid SFA stent and post stent dilation with balloon complicated by development of complex nonhealing right lower extremity wound requiring multiple debridements and most recently a wound VAC placement who presented to the hospital on 11/05/2024 with increasing right lower extremity wound infection. In addition, he was noted to have multiple lab abnormalities on the blood work done at the facility. Apparently he had been on Bactrim due to recent culture showing MRSA. He also has a left elbow wound which recently was noted to have purulent drainage at wound clinic which had grown MRSA as well. On arrival to the emergency room, laboratory workup showed a WBC of 8.41, hemoglobin of 9.50, hematocrit of 30.9, platelet count of 221, sodium of 120 (prior sodium levels ranging from 125-132 in the past), potassium of 6.6, chloride of 85, bicarb of 25, BUN of 26, creatinine of 0.9, lactic acid of 1.5, AST of 15, ALT of 12, and alkaline phosphatase of 218. Imaging studies included chest x-ray which did not show any acute cardiopulmonary abnormality, elbow CT which showed a soft tissue hematoma overlying posterior aspect of the olecranon, and right lower extremity CT which showed extensive soft tissue defect along the anterior, medial and posterior medial aspect of the right lower extremity with extensive underlying subcutaneous edema without any evidence of subcutaneous gas and no cortical irregularities or subcutaneous lucencies to suggest osteomyelitis. Upon admission, he was treated with Kayexalate, insulin/D50/calcium gluconate for hyperkalemia with improvement in potassium level to 4.2. Sodium level improved to 130. For sepsis secondary to wound infection failure of outpatient treatment, he was started on broad-spectrum antibiotics including vancomycin and piperacillin-tazobactam. General surgery and Orthopedic surgery were consulted. He had become hypotensive and briefly was moved to the intensive care unit and started on Levophed. This stabilized and he was moved out to regular medical floor on 11/07/2024. Blood cultures drawn on admission did not show any growth to date. Shortly after admission, he had atrial fibrillation with rapid ventricular response. He was started on amiodarone drip. He was also noted to have hypotension requiring Levophed. Midodrine 10 mg q6h was started and he was weaned off Levophed. Beta-dev, his home medication, was placed on hold due to soft blood pressures. Subjective: Noted pain in right lower extremity is under control. No new complaints overnight. Medications: Medication Review Details: Current active Medications: - Amiodarone 400 mg BID - Apixaban 5 mg BID - Clopidogrel 75 mg daily - Gabapentin 300 mg BID - Insulin glargine 40 units at bedtime - Sliding scale insulin - Midodrine 10 mg q6h - Pantoprazole 40 mg PO daily - Tamsulosin 0.4 mg daily - Losartan 50 mg daily - Vancomycin, pharmacy to dose - Piperacillin-tazobactam Vitals/I&O/Wt Last Vital Signs Temp 97.6 F 11/07/24 12:10 Pulse 89 11/07/24 12:10 Resp 16 11/07/24 12:10 BP 104/65 11/07/24 12:10 Pulse Ox 98 11/07/24 12:10 O2 Del Method Room Air 11/07/24 12:10 FiO2 21 11/05/24 21:14 11/07/24 11/07/24 11/07/24 06:59 14:59 22:59 Intake Total 750 / 1714.747 530 / 530 Output Total 400 / 2050 Balance 350 / -335.253 530 / 530 Weight last 48 hrs Weight 92.896 kg Weight 94.302 kg Weight 94.302 kg Physical Exam 2 Narrative: General: No acute distress HEENT: Normocephalic, atraumatic Neck: Supple, no JVD Lungs: Clear to auscultation bilaterally Heart: Regular rate and rhythm, no murmurs, rubs or gallops Abdomen: Soft, non-tender, non-distended, no organomegaly Extremities: - Right lower extremity: Extensive soft tissue defect, no purulent discharge, no erythema or warmth - Left elbow: Soft tissue hematoma overl dasha olecranon, no erythema or warmth Neuro: Alert and oriented x3 Data 11/07/24 04:55 11/07/24 04:55 Micro: Microbiology 11/05/24 11:15 Blood Culture - Preliminary Blood NEGATIVE TO DATE 11/05/24 11:13 Blood Culture - Preliminary Blood NEGATIVE TO DATE A&P Assessment and plan (1) Intractable pain: (2) Acute hyperkalemia: (3) Acute hyponatremia: (4) Wound of right lower extremity: (5) CHF (congestive heart failure): (6) PAD (peripheral artery disease): Plan Acute on chronic Right Lower Extremity Wound Infection - Broad-spectrum antibiotics started with vancomycin and piperacillin- tazobactam. Blood cultures from 11/05/2024 remain negative. - No wound culture drawn - No Leukocytosis - Unfortunately no wound cultures were obtained on admission however recent culture from wound clinic noted MRSA Differential Diagnosis: 1. Failure of outpatient antibiotic therapy with Bactrim Plan: 1. Continue vancomycin, pharmacy to dose and Zosyb 2. Discuss de-escalation of antibiotics in the next 24 hours as blood cultures remain negative and he is clinically improving 3. Await final recommendation from general surgery Hyperkalemia - Potassium of 6.6 on admission, treated with Kayexalate, insulin/D50, calcium gluconate with improvement to 4.2 Plan: 1. Monitor potassium levels 2. Adjust medications as needed Hyponatremia - Sodium of 120 on admission, with prior levels ranging 125-132, improved to 130 with treatment Plan: 1. Monitor sodium levels 2. Encourage oral intake as tolerated Atrial Fibrillation with RVR - Paroxysmal atrial fibrillation on Eliquis 5 mg BID at home, had episode of AFib with RVR shortly after admission - Started on amiodarone drip, now on oral amiodarone 400 mg BID - Stable controlled rate currently Plan: 1. Continue amiodarone 400 mg BID 2. Continue Eliquis 5 mg BID 3. Telemetry monitoring 4. Resume beta-dev when blood pressure allows Hypotension - Required brief ICU stay and Levophed for hypotension, now off pressors - Midodrine 10 mg q6h started Plan: 1. Wean midodrine as tolerated 2. Monitor blood pressure closely Chronic Heart Failure with Reduced EF - EF 32% in August 2024 Plan: 1. Continue guideline-directed medical therapy including beta-dev and RAMIRO- inhibitor/ARB as blood pressure allows 2. Monitor fluid status, keep euvolemic 3. Encourage medication compliance and low salt diet Chronic Obstructive Pulmonary Disease - Stable from respiratory standpoint Plan: 1. Encourage incentive spirometry and ambulation 2. Monitor for signs/symptoms of exacerbation Diabetes Mellitus - Blood glucose well-controlled on current regimen Plan: 1. Continue insulin glargine 10 units at bedtime 2. Sliding scale insulin with meals 3. Monitor blood glucose levels Anemia - Hemoglobin 8.3, hematocrit 26 on 11/07/2024 - Likely secondary to chronic disease and poor nutrition in setting of infection Plan: 1. Trend CBC 2. Transfuse if symptomatic or hemoglobin drops below 7 PDMP PDMP Reviewed: Not Reviewed Attestations 2 Medical Necessity Statement*: Patient will require additional [facility] for IV antibiotics, surgical consult Coding Level of Care Code Acute Code for [facility] Fwd Diagnoses Intractable pain R52 Acute hyperkalemia E87.5 Acute hyponatremia E87.1 Wound of right lower extremity S81.801A CHF (congestive heart failure) I50.9 PAD (peripheral artery disease) I73.9
[2024-11-07 17:09] LABS: Glucose Point of Care 127 mg/dL (70-110)
[2024-11-07] MEDS: pantoprazole 40 mg SDV IVP (17:31)
[2024-11-07] MEDS: insulin glargine 100 units/1 mL 10 UNIT SUBCUT (17:31)
[2024-11-07 20:30] LABS: Glucose Point of Care 189 mg/dL (70-110)
[2024-11-08] VITALS (10 sets, daily range): BP systolic 98–156; BP diastolic 62–97; PULSE 81–124; RESP 16–18; TEMP 36.4–36.8; O2SAT 93–100
[2024-11-08] MEDS: midodrine 5 mg TABLET 10 MG PO ×2 (04:06→07:56)
[2024-11-08 06:13] LABS: Basophils # 0.1 10^3/uL (0.0-0.1); Basophils % 1.1 %; Eosinophils # 0.2 10^3/uL (0.0-0.8); Eosinophils % 1.8 %; Hematocrit 26.2 % (37-53); Lymphocytes # 1.4 10^3/uL (0.8-4.8); Lymphocytes % 15.8 %; Mean Corpuscular HGB Conc 31.3 g/dL (30-55); Mean Corpuscular Hemoglobin 26.7 pg (27-33); Mean Corpuscular Volume 85.3 fl (82-101); Mean Platelet Volume 9.6 fL (7.4-10.4); Monocytes # 0.5 10^3/uL (0.2-0.9); Monocytes % 5.9 %; Neutrophils # 6.55 10^3/uL (1.8-7.7); Neutrophils % 74.8 %; Nucleated Red Blood Cells % 0 %; Platelet Count 199 10^3/cmm (157-399); Red Blood Count 3.07 10^6/uL (3.85-5.65); Red Cell Distribution Width 17.5 % (12.1-15.1); White Blood Count 8.77 10^3/uL (3.29-11.43)
[2024-11-08 06:13] LABS: Glucose Point of Care 94 mg/dL (70-110)
[2024-11-08 06:33] LABS: Alanine Aminotransferase 9 U/L (0-41); Albumin Level 3.3 g/dL (3.5-5.2); Alkaline Phosphatase 151 U/L (40-130); Anion Gap 21.3 (5-19); Aspartate Amino Transferase 15 U/L (0-40); Blood Urea Nitrogen 26 mg/dL (6-20); Calcium 8.7 mg/dL (8.5-10.5); Carbon Dioxide 22 mmol/L (22-29); Chloride 89 mmol/L (98-107); Creatinine Clr Calc Pharmacy 103.7198; Globulin 3.4 g/dL (1.3-4.6); Glucose 82 mg/dL (65-115); Osmolality Calculated 270 mOsm/kg (285-295); Phosphorus 4.2 mg/dL (2.5-4.5); Potassium 4.3 mmol/L (3.5-5.1); Sodium 128 mmol/L (136-145); Total Bilirubin 0.7 mg/dL (0.15-1.2); Total Protein 6.7 g/dL (6.6-8.7)
[2024-11-08] MEDS: piperacillin-tazobactam 3.375 GM in sodium chloride 0.9% (plus) 50 ML IV (07:56)
[2024-11-08] MEDS: tamsulosin 0.4 mg Capsule PO (07:57)
[2024-11-08] MEDS: gabapentin 300 mg Capsule PO ×2 (07:57→17:35)
[2024-11-08] MEDS: clopidogrel 75 mg Tablet PO (07:57)
[2024-11-08] MEDS: amiodarone 200 mg Tablet 400 MG PO ×2 (07:57→17:34)
[2024-11-08] MEDS: nicotine 14 mg Patch 1 PATCH TRANSDERMA (07:57)
[2024-11-08] MEDS: morphine ER (12 HR) 15 mg Tablet PO ×2 (07:58→17:34)
[2024-11-08] MEDS: apixaban 5 mg Tablet PO ×2 (07:58→17:34)
[2024-11-08] MEDS: collagenase oint 30 gm 1 APPLIC TOPICAL (08:01)
[2024-11-08 10:48] LABS: Glucose Point of Care 175 mg/dL (70-110)
[2024-11-08] MEDS: insulin lispro 100 unit/1 mL SUBCUT ×2 (11:07→21:21)
[2024-11-08] MEDS: digoxin 250 mcg/ml INJ 2 mL IVP ×3 (11:08→23:27)
--- NOTE | 2024-11-08 11:27 | P.PN_ITS ---
Subjective 2 Subjective: Patient seen and examined. Pain controlled. No complaints Vitals/I&O/Wt Last Vital Signs Temp 97.9 F 11/09/24 08:00 Pulse 92 11/09/24 08:00 Resp 17 11/09/24 08:00 BP 114/59 11/09/24 08:00 Pulse Ox 94 11/09/24 08:00 O2 Del Method Room Air 11/09/24 08:00 FiO2 21 11/05/24 21:14 11/08/24 11/09/24 11/09/24 22:59 06:59 14:59 Intake Total 600 / 1102.917 240 / 1342.917 240 / 240 Output Total 400 / 700 300 / 1000 Balance 200 / 402.917 -60 / 342.917 240 / 240 Weight last 48 hrs Weight 204 lb 9.6 oz Weight 204 lb 14.4 oz Physical Exam 2 Narrative: General: No acute distress, awake alert and oriented x 3 Skin: Right lower extremity wound with a mild amount of redness exudate at the inferior portion, otherwise a healthy wound bed Data 11/09/24 09:44 11/09/24 09:44 A&P Assessment and plan (1) Wound of right lower extremity: Plan Continue daily dressing changes with dry dressing and Santyl to the fibrinous exudate at the inferior portion Looks like he will be ready for a skin graft in the near future as an outpatient Follow-up with wound care upon discharge Follow-up with me in office in 2 weeks Medical management per hospitalist PDMP PDMP Reviewed: Not Reviewed Attestations 2 Medical Necessity Statement*: Per primary Coding Level of Care Code 72599 Diagnoses Wound of right lower extremity S81.801A
--- NOTE | 2024-11-08 14:27 | P.PN_ITS ---
Subjective 2 Subjective: Hospital Course: 59-year-old male with a past medical his tory of chronic obstructive pulmonary disease, hypertension, dyslipidemia, diabetes mellitus, chronic heart failure with reduced ejection fraction last noted to be 32% in August 2024, benign prostatic hyperplasia, history of IVDA in remission, paroxysmal atrial fibrillation on Eliquis, and peripheral vascular disease who was hospitalized in August with acute ischemia status post percutaneous revascularization with balloon angioplasty followed by mid SFA stent and post stent dilation with balloon complicated by development of complex nonhealing right lower extremity wound requiring multiple debridements and most recently a wound VAC placement who presented to the hospital on 11/05/2024 with increasing right lower extremity wound infection. In addition, he was noted to have multiple lab abnormalities on the blood work done at the facility. Apparently he had been on Bactrim due to recent culture showing MRSA. He also has a left elbow wound which recently was noted to have purulent drainage at wound clinic which had grown MRSA as well. On arrival to the emergency room, laboratory workup showed a WBC of 8.41, hemoglobin of 9.50, hematocrit of 30.9, platelet count of 221, sodium of 120 (prior sodium levels ranging from 125-132 in the past), potassium of 6.6, chloride of 85, bicarb of 25, BUN of 26, creatinine of 0.9, lactic acid of 1.5, AST of 15, ALT of 12, and alkaline phosphatase of 218. Imaging studies included chest x-ray which did not show any acute cardiopulmonary abnormality, elbow CT which showed a soft tissue hematoma overlying posterior aspect of the olecranon, and right lower extremity CT which showed extensive soft tissue defect along the anterior, medial and posterior medial aspect of the right lower extremity with extensive underlying subcutaneous edema without any evidence of subcutaneous gas and no cortical irregularities or subcutaneous lucencies to suggest osteomyelitis. Upon admission, he was treated with Kayexalate, insulin/D50/calcium gluconate for hyperkalemia with improvement in potassium level to 4.2. Sodium level improved to 130. For sepsis secondary to wound infection failure of outpatient treatment, he was started on broad-spectrum antibiotics including vancomycin and piperacillin-tazobactam. General surgery and Orthopedic surgery were consulted. He had become hypotensive and briefly was moved to the intensive care unit and started on Levophed. This stabilized and he was moved out to regular medical floor on 11/07/2024. Blood cultures drawn on admission did not show any growth to date. Shortly after admission, he had atrial fibrillation with rapid ventricular response. He was started on amiodarone drip. He was also noted to have hypotension requiring Levophed. Midodrine 10 mg q6h was started and he was weaned off Levophed. Beta-dev, his home medication, was placed on hold due to soft blood pressures. Subjective: 11/07 Noted pain in right lower extremity is under control. No new complaints overnight. 11/08 Overnight patient stated he was doing well. this morning however patient was noted to have atrial fibrillation with rapid ventricular response. He did not complain of any chest discomfort. Also denied any palpitations. No fever, chills, nausea vomiting. Cardiology was consulted. Recommended to load with digoxin 250 mcg Q 6 hours x4 doses and then daily. he was started on midodrine which was not stopped. Continud on amiodarone. Discussed with general surgery, did not feel he had an acutely infected wound. IV abx were discontinued and started on PO doxycyline based on 10/28 wound cultures showing MRSA for which he was on bactrim prior to arrival to hospital Medications: Medication Review Details: Current active Medications: - Amiodarone 400 mg BID - Apixaban 5 mg BID - Clopidogrel 75 mg daily - Gabapentin 300 mg BID - Insulin glargine 40 units at bedtime - Sliding scale insulin - Midodrine 10 mg q6h - Pantoprazole 40 mg PO daily - Tamsulosin 0.4 mg daily - Losartan 50 mg daily - Vancomycin, pharmacy to dose - Piperacillin-tazobactam Vitals/I&O/Wt Last Vital Signs Temp 98.2 F 11/08/24 11:59 Pulse 83 11/08/24 11:59 Resp 18 11/08/24 11:59 BP 98/66 11/08/24 11:59 Pulse Ox 98 11/08/24 11:59 O2 Del Method Room Air 11/08/24 11:59 FiO2 21 11/05/24 21:14 11/07/24 11/08/24 11/08/24 22:59 06:59 14:59 Intake Total 1184 / 1714 50 / 1764 502.917 / 502.917 Output Total 600 / 600 400 / 1000 300 / 300 Balance 584 / 1114 -350 / 764 202.917 / 202.917 Weight last 48 hrs Weight 92.941 kg Weight 92.896 kg Physical Exam 2 Narrative: General: No acute distress HEENT: Normocephalic, atraumatic Neck: Supple, no JVD Lungs: Clear to auscultation bilaterally Heart: Irregularly irregular with rapid rate Abdomen: Soft, non-tender, non-distended, no organomegaly Extremities: - Right lower extremity: dressing. See s x note - Left elbow: dressed. No pain or draina ge Neuro: Alert and oriented x3 Data 11/08/24 05:45 11/08/24 05:45 A&P Assessment and plan (1) Intractable pain: (2) Acute hyperkalemia: (3) Acute hyponatremia: (4) Wound of right lower extremity: (5) CHF (congestive heart failure): (6) PAD (peripheral artery disease): Plan Atrial Fibrillation with RVR - Paroxysmal atrial fibrillation on Eliquis 5 mg BID at home, had episode of AFib with RVR shortly after admission - Started on amiodarone drip, now on oral amiodarone 400 mg BID. Patient was noted to be hypotensive on admit. Was started on midodrine. - Now noted to have again rapid afib overnight - Discussed with cardiology, consult placed. Plan: 1. Continue amiodarone 400 mg BID 2. Continue Eliquis 5 mg BID 3. Digoxin loading started as per cardiology recommendation 4. Resume beta-dev when blood pressure allows 5. Discontinue midodrine fow now 6. May possibly need cardioversion. Acute on chronic Right Lower Extremity Wound Infection - Broad-spectrum antibiotics started with vancomycin and piperacillin- tazobactam. Blood cultures from 11/05/2024 remain negative. - No wound culture drawn on admission however past culture noted MRSA. Was on bactrim prior to arrival. - No Leukocytosis - Discussed with general surgery did not feel this wound was acutely infected Plan: 1. Discontinued vancomycin, and Zosyn 2. Will start and continue doxycyline for additional course 3. General surgery will plan to arrange follow and discuss with plastics Hyperkalemia - Resolved - Potassium of 6.6 on admission, treated with Kayexalate, insulin/D50, calcium gluconate with improvement to 4.2 Plan: 1. Monitor potassium levels 2. Adjust medications as needed Hyponatremia- improved - Sodium of 120 on admission, with prior levels ranging 125-132, improved to 128 with treatment Plan: 1. Monitor sodium levels 2. Encourage oral intake as tolerated Chronic Heart Failure with Reduced EF - EF 32% in August 2024 Plan: 1. Continue guideline-directed medical therapy including beta-dev and RAMIRO- inhibitor/ARB as blood pressure allows 2. Monitor fluid status, keep euvolemic 3. Has lifeVest in place Chronic Obstructive Pulmonary Disease - Stable from respiratory standpoint Plan: 1. Monitor for signs/symptoms of exacerbation Diabetes Mellitus - Blood glucose well-controlled on current regimen Plan: 1. Continue insulin glargine 10 units at bedtime 2. Sliding scale insulin with meals 3. Monitor blood glucose levels Anemia - Hemoglobin 8.3, hematocrit 26 on 11/07/2024 - 8.2 today - Likely secondary to chronic disease and poor nutrition in setting of infection Plan: 1. Trend CBC 2. Transfuse if symptomatic or hemoglobin drops below 7 PDMP PDMP Reviewed: Not Reviewed Attestations 2 Medical Necessity Statement*: Patient will require additional day in hospital for managmeent of atrial fib with RVR and cardiology consult Coding Level of Care Code Acute Code for Chg Fwd Diagnoses Intractable pain R52 Acute hyperkalemia E87.5 Acute hyponatremia E87.1 Wound of right lower extremity S81.801A CHF (congestive heart failure) I50.9 PAD (peripheral artery disease) I73.9
--- NOTE | 2024-11-08 15:32 | PC.NURSE ---
This nurse gave an update to KassiRN at [facility] at [id number].
[2024-11-08 16:39] LABS: Glucose Point of Care 127 mg/dL (70-110)
[2024-11-08] MEDS: insulin glargine 100 units/1 mL 10 UNIT SUBCUT (17:34)
[2024-11-08] MEDS: doxycycline 100 mg Tablet PO (17:34)
[2024-11-08 20:55] LABS: Glucose Point of Care 160 mg/dL (70-110)
--- NOTE | 2024-11-08 23:06 | PM.CONSULT ---
Providers/Reason For Consult Consulting Physician/Specialty*: HIPOLITO Rodriguez MD/cardiology Reason for Consult*: Atrial fibrillation with rapid ventricular rate, hypotension Requesting Physician: Dr. Rodrigez Attending Physician: Maxwell Lucas Primary Care Provider: Yusuf Rivera DO History of Present Illness History of Present Illness Yusuf Buck is a 59 year old male with a history atherosclerotic heart disease, ischemic cardiomyopathy, congestive heart failure, severe peripheral artery disease, status post recent peripheral artery intervention, chronic atrial fibrillation and multiple medical problems, he is currently recuperating in the snf after a recent prolonged stay in the hospital where he was admitted with anasarca and nonhealing leg ulcers.. Patient has a nonhealing ulcer at the anterior aspect of the right lower leg and also another ulcer in the left elbow. He is being followed up in the wound care clinic. According to the patient, he was having episodes of low blood pressure and the new nurses at the snf were concerned about this, so was brought to the hospital and got admitted. However based on the medical records, his ulcers were having increasing discharges and the patient was complaining of increasing pain in the extremities with the swelling. He was found to be hyponatremic and hypokalemic in the emergency room. He is admitted to the hospital for further evaluation and management. He has a history of chronic atrial fibrillation and is on oral anticoagulation and AV sydnie blocking agents. His heart rate was found to be out of control. He was started on amiodarone. The heart rate still remains uncontrolled. Cardiology consult is requested for further cardiac evaluation recommendations. Patient is carrying a LifeVest for severe LV dysfunction. There is any chest pain or chest tightness. No orthopnea or PND. According the patient, he is feeling better and is wanting to go back to the snf. Review of Systems Narrative: CONSTITUTIONAL: No fever or chills. EYES: No blurring of vision or other visual disturbances lately. ENT: No hoarseness of voice, auditory disturbances or sore throat. CARDIOVASCULAR: As mentioned above. RESPIRATORY: No significant cough. GASTROINTESTINAL: No hematemesis or melena. GENITOURINARY: No dysuria or hematuria. INTEGUMENTARY: Nonhealing ulcers as mentioned above NEURO: No transient ischemic attacks or amaurosis. PSYCHIATRIC: No history of psychosis or major depression. HEMATOLOGIC: History of chronic anemia. On long-term oral anticoagulation. ENDOCRINE: Not have type 2 diabetes MUSCULOSKELETAL: No recent joint pain or swelling. ALLERGY/IMMUNOLOGY: As mentioned above. Medications/Allergies Home Medications ?Medication ?Instructions ?Recorded ?Confirmed ?Last Taken ?Type fluticasone propionate 50 1 spray intranasal DAILY 04/09/20 11/05/24 11/05/24 History mcg/actuation nasal spray,suspension duloxetine 20 mg capsule,delayed 20 mg PO BID 06/23/22 11/05/24 11/05/24 History release Diabetic shoes with 3 pairs of #1 ea 01/19/23 11/05/24 Unknown Rx custom molded inserts blood-glucose meter,continuous #1 ea 07/01/23 11/05/24 Unknown Rx (Dexcom G7 Frit Mixer And Burner) blood-glucose sensor (Dexcom G7 #9 ea 07/01/23 11/05/24 Unknown Rx Sensor device) nitroglycerin 0.4 mg sublingual See Rx Instructions .Route 04/22/24 11/05/24 Unknown Rx tablet .COMPLEX #50 tabs evolocumab 140 mg/mL subcutaneous 140 mg SUBCUT .q 2weeks #2 mL 06/15/24 11/05/24 10/31/24 Rx pen injector (Repatha SureClick) insulin lispro 100 unit/mL See Rx Instructions .Route 09/23/24 11/05/24 11/04/24 Rx subcutaneous solution (Humalog .COMPLEX #10 mL U-100 Insulin) nicotine 14 mg/24 hr daily 1 patch transdermal DAILY #28 ea 09/23/24 11/05/24 10/23/24 Rx transdermal patch acetaminophen 325 mg tablet 650 mg PO Q6H PRN Pain 09/26/24 11/05/24 10/20/24 History (Tylenol) bisacodyl 10 mg rectal suppository 10 mg VT DAILY PRN Constipation 09/26/24 11/05/24 Unknown History (Dulcolax (bisacodyl)) budesonide 160 mcg-glycopyr 9 2 inh inhalation BID 09/26/24 11/05/24 10/23/24 History mcg-formot 4.8 mcg/actuation HFA inhaler (Breztri Aerosphere) insulin degludec 100 unit/mL (3 10 unit SUBCUT QPM 10/06/24 11/05/24 11/04/24 History mL) subcutaneous pen (Tresiba FlexTouch U-100 insulin) omeprazole 20 mg capsule,delayed 20 mg PO BID 10/06/24 11/05/24 11/05/24 History release isosorbide mononitrate 30 mg 15 mg PO DAILY 10/24/24 11/05/24 11/05/24 History tablet,extended release 24 hr potassium chloride 10 mEq 10 meq PO DAILY 10/24/24 11/05/24 11/05/24 History tablet,extended release(part/cryst) ranolazine 500 mg tablet,extended 500 mg PO DAILY 10/24/24 11/05/24 11/05/24 History release,12 hr sacubitril 24 mg-valsartan 26 mg 1 tab PO DAILY 10/24/24 11/05/24 11/05/24 History tablet spironolactone 50 mg tablet 50 mg PO DAILY 10/24/24 11/05/24 11/05/24 History clopidogrel 75 mg tablet 75 mg PO DAILY #90 tabs 10/25/24 11/05/24 11/05/24 Rx apixaban 5 mg tablet (Eliquis) 5 mg PO BID 11/05/24 11/05/24 11/05/24 History furosemide 40 mg tablet 40 mg PO DAILY 11/05/24 11/05/24 11/05/24 History gabapentin 300 mg capsule 300 mg PO BID 11/05/24 11/05/24 11/05/24 History hydrocodone 10 mg-acetaminophen 1 tab PO Q6H PRN Pain 11/05/24 11/05/24 11/04/24 History 325 mg tablet lidocaine HCl 2 % mucosal jelly in 1 - 2 applic mucous membrane 11/05/24 11/05/24 11/02/24 History applicator .EVERY SHIFT menthol 0.44 %-zinc oxide 20.6 % 1 applic topical .EVERY SHIFT PRN 11/05/24 11/05/24 11/04/24 History topical ointment (Calmoseptine) Pain morphine 15 mg immediate release 30 mg PO Q6H PRN Pain 11/05/24 11/05/24 11/02/24 History tablet morphine 30 mg immediate release 30 mg PO Q6H PRN Pain 11/05/24 11/05/24 11/01/24 History tablet morphine concentrate 100 mg/5 mL 20 mg PO BID 11/05/24 11/05/24 11/04/24 History (20 mg/mL) oral solution sulfamethoxazole 800 1 tab PO BID 11/05/24 11/05/24 11/05/24 History mg-trimethoprim 160 mg tablet (Bactrim DS) tamsulosin 0.4 mg capsule 0.4 mg PO DAILY 11/05/24 11/05/24 11/05/24 History white petrolatum 41 % topical 1 applic topical Q12H 11/05/24 11/05/24 Unknown History ointment (Aquaphor Original) Allergies Allergy/AdvReac Type Severity Reaction Status Date / Time No Known Allergies Allergy Verified 10/24/24 07:52 Current Medications Generic Name Dose Route Start Last Admin Trade Name Ancelmoq PRN Reason Stop Dose Admin Amiodarone HCl 400 mg 11/06/24 10:25 11/08/24 17:34 Amiodarone 200 Mg Tablet PO 400 mg BID LAURO Administration Apixaban 5 mg 11/05/24 18:05 11/08/24 17:34 Apixaban 5 Mg Tablet PO 5 mg BID LAURO Administration Clopidogrel Bisulfate 75 mg 11/06/24 09:00 11/08/24 07:57 Clopidogrel 75 Mg Tablet PO 75 mg DAILY LAURO Administration Collagenase 1 applic 11/06/24 11:45 11/08/24 08:01 Collagenase Oint 30 Gm TOPICAL 1 applic DAILY LAURO Administration Doxycycline Monohydrate 100 mg 11/08/24 18:00 11/08/24 17:34 Doxycycline 100 Mg Tablet PO 100 mg BID LAURO Administration Protocol Gabapentin 300 mg 11/05/24 18:05 11/08/24 17:35 Gabapentin 300 Mg Capsule PO 300 mg BID LAURO Administration Amiodarone HCl/Dextrose 360 mg in 200 mls @ 0 mls/hr 11/05/24 22:30 11/08/24 14:29 Nexterone IV Infused .Q0M LAURO Titration Protocol Per Protocol Insulin Glargine 10 unit 11/05/24 18:05 11/08/24 17:34 Insulin Glargine 100 Units/1 Ml SUBCUT 10 unit QPM LAURO Administration Insulin Human Lispro 0 unit 11/05/24 18:05 11/08/24 21:21 Insulin Lispro 100 Unit/1 Ml SUBCUT 4 unit WM&BEDTIME LAURO Administration Protocol Morphine Sulfate 15 mg 11/05/24 14:35 11/08/24 17:34 Morphine Er (12 Hr) 15 Mg Tablet PO 15 mg BID LAURO Administration Morphine Sulfate 30 mg 11/05/24 18:54 11/06/24 23:51 Morphine Ir 15 Mg Tablet PO 30 mg Q6H PRN Administration SEVERE PAIN Nicotine 1 patch 11/06/24 09:00 11/08/24 07:57 Nicotine 14 Mg Patch TRANSDERMA 1 patch DAILY LAURO Administration Sodium Polystyrene Sulfonate 15 gm 11/05/24 16:00 11/06/24 10:58 Sodium Polystyrene Sulfonate 15 Gm/60 Ml Btl PO 15 gm Q6H LAURO Administration Tamsulosin HCl 0.4 mg 11/06/24 09:00 11/08/24 07:57 Tamsulosin 0.4 Mg Capsule PO 0.4 mg DAILY LAURO Administration PFSH Acute PFSH: Medical History Type 2 diabetes mellitus with other skin ulcer 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 Lower extremity edema Chronic venous insufficiency Chest pain, unspecified History of intravenous drug use in remission COPD (chronic obstructive pulmonary disease) Congestive heart failure Angina pectoris Hematuria, microscopic Acute pharyngitis, unspecified Hx of myocardial infarction Chronic low back pain Benign essential HTN Arthritis Encounter for long-term (current) use of NSAIDs Atypical chest pain Benign prostatic hyperplasia without lower urinary tract symptoms High blood pressure Hypercholesteremia Mixed hyperlipidemia Diabetes mellitus Long-term current use of opiate analgesic Pain management contract signed DDD (degenerative disc disease), lumbar Tobacco use disorder Smokes to calm his nerves Chronic pain of both knees Gastro-esophageal reflux disease without esophagitis Right testicular pain Calculus of kidney Fracture of arm Abdominal pain of unknown etiology Adhesive tendinitis Male erectile dysfunction, unspecified Abscess, dental Migraine Intervertebral disc disorders with radiculopathy, lumbar region Acute bilateral knee pain Acute left-sided low back pain Other terminal block assembler (current) drug therapy Type 2 diabetes mellitus with diabetic neuropathy, unspecified Patient continues to have neuropathy symptoms Aortic valvar stenosis Nicotine dependence, unspecified, uncomplicated Fracture of wrist Surgical History History of PTCA S/P tendon repair H/O hernia repair H/O umbilical hernia repair H/O knee surgery Family History Mother , Metastasis Cancer Hypertension Stomach ulcer Arthritis Father , Gunshot Hypertension Sister Clotting disorder Grandmother CAD (coronary artery disease) Cancer Stroke Grandfather CAD (coronary artery disease) Cancer Family/Other Suicide Other Heart disease Denies family history of Diabetes Dementia Chronic kidney disease (CKD) Anesthesia complication Bleeding disorder Lung disease Social History Smoking and tobacco/nicotine status: former use of tobacco/nicotine (2023) Alcohol intake: former Year of sobriety/quit date alcohol: 2014 Substance/Drug Use: never Lives independently: No Housing: Assisted Marital status: Legally Current occupational status: disabled Do you think of yourself as: Straight/Heterosexual Current gender identity: Male Vitals/I&O/Wt Last Vital Signs Temp 98.0 F 11/08/24 20:00 Pulse 82 11/08/24 22:27 Resp 16 11/08/24 20:00 BP 156/97 11/08/24 20:00 Pulse Ox 100 11/08/24 20:00 O2 Del Method Room Air 11/08/24 15:54 FiO2 21 11/05/24 21:14 11/08/24 11/08/24 11/09/24 14:59 22:59 06:59 Intake Total 502.917 / 502.917 360 / 862.917 Output Total 300 / 300 Balance 202.917 / 202.917 360 / 562.917 Weight last 48 hrs Weight 204 lb 14.4 oz Weight 204 lb 12.8 oz Physical Exam Narrative: Patient's status post recent GENERAL: The patient is alert and oriented times three. Not in any acute distress. HEENT: No significant pallor, icterus or lymphadenopathy.Oral cavity: There are no mucous membrane lesions. NECK: Trachea appears to be central. No masses noted. No JVD or thyromegaly appreciated. RESPIRATORY: Chest is symmetrical. No intercostals muscle retraction or any accessory muscle activation. There is no chest wall tenderness. Breath sounds are heard bilaterally. No rales or rhonchi heard. No evidence of any consolidation. BREASTS: Deferred. HEART: The heart sounds are normal. No S3 or S4. Short systolic murmur in the left renal border. No diastolic murmurs.. No pericardial rub ABDOMEN: No vessel pulsations or distention. No tenderness. No organomegaly appreciated. Bowel sounds are normally heard. : Deferred. RECTAL: Deferred. LYMPHATIC: No lymphadenopathy noted in the neck. EXTREMITIES: 1-2+ edema both lower extremities. Right lower extremity is bandaged. The left elbow also is bandaged. MUSCULOSKELETAL: No acute joint deformities or swelling SKIN: There are no significant rashes or ecchymosis NEUROPSYCHIATRIC: The patient is alert and oriented x3. Appears to be in a good mood. No tremors or rigidity noted. Data 11/08/24 05:45 11/08/24 05:45 Other Labs: Laboratory Last Values WBC 8.77 10^3/uL (3.29-11.43) 11/08/24 05:45 RBC 3.07 10^6/uL (3.85-5.65) L 11/08/24 05:45 Hgb 8.20 g/dL (11.27-16.99) L 11/08/24 05:45 Hct 26.2 % (37-53) L 11/08/24 05:45 MCV 85.3 fl (82-101) 11/08/24 05:45 MCH 26.7 pg (27-33) L 11/08/24 05:45 MCHC 31.3 g/dL (30-55) 11/08/24 05:45 RDW 17.5 % (12.1-15.1) H 11/08/24 05:45 Plt Count 199 10^3/cmm (157-399) 11/08/24 05:45 MPV 9.6 fL (7.4-10.4) 11/08/24 05:45 Neut % (Auto) 74.8 % 11/08/24 05:45 Lymph % (Auto) 15.8 % 11/08/24 05:45 [place] % (Auto) 5.9 % 11/08/24 05:45 Eos % (Auto) 1.8 % 11/08/24 05:45 Baso % (Auto) 1.1 % 11/08/24 05:45 Neut # (Auto) 6.55 10^3/uL (1.8-7.7) 11/08/24 05:45 Lymph # (Auto) 1.4 10^3/uL (0.8-4.8) 11/08/24 05:45 [place] # (Auto) 0.5 10^3/uL (0.2-0.9) 11/08/24 05:45 Eos # (Auto) 0.2 10^3/uL (0.0-0.8) 11/08/24 05:45 Baso # (Auto) 0.1 10^3/uL (0.0-0.1) 11/08/24 05:45 Nucleated RBC % (auto) 0 % 11/08/24 05:45 Nucleated RBCs # 0.0 /100WBC 11/08/24 05:45 ESR 71 mm/hr (0-10) H 11/05/24 11:13 Sodium 128 mmol/L (136-145) L 11/08/24 05:45 Potassium 4.3 mmol/L (3.5-5.1) 11/08/24 05:45 Chloride 89 mmol/L (98-107) L 11/08/24 05:45 Carbon Dioxide 22 mmol/L (22-29) 11/08/24 05:45 Anion Gap 21.3 (5-19) H 11/08/24 05:45 BUN 26 mg/dL (6-20) H 11/08/24 05:45 Creatinine 0.9 mg/dL (0.7-1.2) 11/08/24 05:45 GFR Calculation 87.0 mL/min (90-130) L 11/08/24 05:45 Glucose 82 mg/dL (65-115) 11/08/24 05:45 POC Glucose 160 mg/dL (70-110) H 11/08/24 20:30 Estimat Average Glucose 111 11/05/24 11:13 Hemoglobin A1c 5.5 % (4.0-6.0) 11/05/24 11:13 Calculated Osmolality 270 mOsm/kg (285-295) L 11/08/24 05:45 Lactic Acid 1.5 mmol/L (0.5-2.2) 11/05/24 11:13 Calcium 8.7 mg/dL (8.5-10.5) 11/08/24 05:45 Phosphorus 4.2 mg/dL (2.5-4.5) 11/08/24 05:45 Magnesium 2.0 mg/dL (1.7-2.3) 11/08/24 05:45 Total Bilirubin 0.7 mg/dL (0.15-1.2) 11/08/24 05:45 AST 15 U/L (0-40) 11/08/24 05:45 ALT 9 U/L (0-41) 11/08/24 05:45 Alkaline Phosphatase 151 U/L (40-130) H 11/08/24 05:45 Creatine Kinase 29 U/L (39-308) L 11/05/24 11:13 Troponin T Baseline 61 ng/L (0-15) H 11/05/24 14:18 Troponin T 120 Minute 70.25 ng/L (0-15) H 11/05/24 19:30 Delta Troponin T 9.25 ABS# (0-10) 11/05/24 19:30 Troponin T Hi Sens 6Hr 63.64 ng/L (0-15) H 11/05/24 21:07 Troponin T Hi Sens 6Hr Delta 2.64 ng/L (0-12) 11/05/24 21:07 C-Reactive Protein 71.2 mg/L (0.0-4.9) H 11/05/24 19:30 NT-Pro-B Natriuret Pep 6437 pg/mL (0-125) H 11/05/24 19:30 Total Protein 6.7 g/dL (6.6-8.7) 11/08/24 05:45 Albumin 3.3 g/dL (3.5-5.2) L 11/08/24 05:45 Globulin 3.4 g/dL (1.3-4.6) 11/08/24 05:45 Triglycerides 47 mg/dL (0-150) 11/05/24 11:13 Cholesterol 99 mg/dL (0-200) 11/05/24 11:13 LDL Cholesterol, Calc 38 mg/dL (50-129) L 11/05/24 11:13 HDL Cholesterol 52 mg/dL (60-100) L 11/05/24 11:13 LDL/HDL Ratio 0.73 RATIO (0.00-3.22) 11/05/24 11:13 Cholesterol/HDL Ratio 1.90 mg/dL (1.0-5.00) 11/05/24 11:13 Procalcitonin 0.07 ng/mL (0-0.5) 11/05/24 19:30 TSH 7.09 uIU/mL (0.27-4.20) H 11/05/24 11:13 Urine Color Yellow (Yellow) 11/05/24 13:04 Urine Appearance Clear (CLEAR) 11/05/24 13:04 Urine pH 6.5 (5-7) 11/05/24 13:04 Ur Specific [place] 1.006 (1.005-1.030) 11/05/24 13:04 Urine Protein Negative (Negative) 11/05/24 13:04 Urine Glucose (UA) Negative (Normal) 11/05/24 13:04 Urine Ketones Negative (Negative) 11/05/24 13:04 Urine Blood Negative (Negative) 11/05/24 13:04 Urine Nitrate Negative (Negative) 11/05/24 13:04 Urine Bilirubin Negative (Negative) 11/05/24 13:04 Urine Urobilinogen 0.2 mg/dL (Negative) 11/05/24 13:04 Ur Leukocyte Esterase Negative (Negative) 11/05/24 13:04 Urine RBC 0-2 /hpf (0-2) 11/05/24 13:04 Urine WBC 0-5 /hpf (0-5) 11/05/24 13:04 Ur Squamous Epith Cells 0-5 /hpf (0-5) 11/05/24 13:04 Amorphous Sediment Not Reportable 11/05/24 13:04 Urine Bacteria None seen /hpf (NONE) 11/05/24 13:04 Hyaline Casts 0.40 /lpf 11/05/24 13:04 Other data: Echocardiogram from 09/01/2024 Diffuse hypokinesis of the left ventricular ejection fraction of 32%. Mild dilated LV cavity. Grade I/IV diastolic dysfunction (abnormal relaxation filling pattern), normal to mildly elevated filling pressures. Mild aortic valve regurgitation. Mild aortic valve stenosis, mean gradient 11 mmHg, DEMOND 1.9 cm squared. Peak velocity of 2.25 m/s with a peak gradient of 20 and a mean gradient of 12 mmHg. Mild to moderate aortic valve calcification. Mild biatrial enlargement. Mild tricuspid valve regurgitation. Estimated pulmonary artery peak systolic pressure within normal limits There is no pericardial effusion. Compared to the study from 06/05/2023, there is a drop in the LV ejection fraction, from 40% to 32% A&P Assessment and plan (1) Atrial fibrillation with rapid ventricular response: Since atrial fibrillation is chronic, the chance of maintaining sinus rhythm is very low. So I may add digoxin to the amiodarone. Need to be closely monitored on telemetry. Hemodynamically seems to be fairly stable at this point. (2) Atherosclerotic heart disease of [place] coronary artery without angina pectoris: Since the patient has no specific symptoms of coronary insufficiency, may continue on the current medications. Qualifiers: [place] vs. transplanted heart: [place] heart Qualified Code(s): I25.10 - Atherosclerotic heart disease of [place] coronary artery without angina pectoris (3) Ischemic cardiomyopathy: The LV ejection fraction was found to be 32% by echocardiogram in August. Patient is on LifeVest. May continue the same. (4) Congestive heart failure: The heart failure seems to be compensated. May continue on the current medications. Qualifiers: Heart failure type: systolic Heart failure chronicity: chronic Qualified Code(s): I50.22 - Chronic systolic (congestive) heart failure (5) PAD (peripheral artery disease): Patient underwent recent complex RESEARCH ANTHROPOLOGIST. I may go ahead and do a repeat duplex lamination to follow-up on the peripheral arterial intervention. (6) Type 2 diabetes mellitus with diabetic neuropathy, unspecified: Evaluation and management as per the primary. Aggressive blood sugar control would be appropriate. 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 Being followed up with the wound care clinic (9) COPD (chronic obstructive pulmonary disease): Seems stable. Continue on the current management. Qualifiers: COPD type: emphysema Emphysema type: centrilobular Qualified Code(s): J43.2 - Centrilobular emphysema (10) Hypotension: Currently the blood pressure is on the low normal side. I may hold off on any medication changes at this point. Patient is on Entresto which may be continued for the time being. Qualifiers: Hypotension type: other hypotension type Qualified Code(s): I95.89 - Other hypotension Plan Digoxin 0.25 mg IV every 6 hours x 4 followed by 0.12 mg p.o. daily Lower extremity arterial Doppler examination today. Continue on the current management. Other problems are Hyponatremia Chronic anemia Based on the clinical progress, further recommendations will be made. Thank you for the opportunity to evaluate this patient and make these recommendations PDMP PDMP Reviewed: Not Reviewed Consult Attestations Medical Necessity Statement: Patient requires continued hospital stay for close monitoring and further management Coding Level of Care Code 63481 Diagnoses Atrial fibrillation with rapid ventricular response I48.91 Atherosclerosis of [place] coronary artery of [place] heart without angina pectoris I25.10 [place] vs. 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
[2024-11-09] VITALS: BP 108/66; PULSE 93; RESP 15; TEMP 37; O2SAT 96
--- NOTE | 2024-11-09 00:32 | USCV_ITS ---
Yusuf Buck Age: 59 Gender: M : 1965 Exam Date: 11/09/2024 10:16 Ordering Phys: Michelle Rodriguez MD ([email or web address]) Technologist: Exam Location: [facility] [place] Indication: RIGHT LEFT Brachial 122.00 mmHg Brachial 114.00 mmHg Pressure (mmHg) Waveform Pressure (mmHg) Waveform 0.61 Pre-Exercise Toe/Brachial Index FINDINGS Resting TBI of 0.61 CONCLUSIONS Slightly diminished resting TBI, suggesting mild peripheral arterial disease Dr Michelle Rodriguez MD [facility] (Electronically Signed) Final Date: 10 November 2024 13:55 S
[2024-11-09 04:00] VITALS: BP 112/57; PULSE 89; RESP 16; TEMP 36.6; O2SAT 95
[2024-11-09 04:27] VITALS: PULSE 80
[2024-11-09] MEDS: digoxin 250 mcg/ml INJ 2 mL IVP (04:37)
[2024-11-09 06:30] LABS: Glucose Point of Care 85 mg/dL (70-110)
[2024-11-09 08:00] VITALS: BP 114/59; PULSE 92; RESP 17; TEMP 36.6; O2SAT 94
[2024-11-09] MEDS: tamsulosin 0.4 mg Capsule PO (08:12)
[2024-11-09] MEDS: pantoprazole DR 40 mg Tablet PO (08:12)
[2024-11-09] MEDS: amiodarone 200 mg Tablet 400 MG PO (08:12)
[2024-11-09] MEDS: morphine ER (12 HR) 15 mg Tablet PO (08:12)
[2024-11-09] MEDS: nicotine 14 mg Patch 1 PATCH TRANSDERMA (08:12)
[2024-11-09] MEDS: gabapentin 300 mg Capsule PO (08:13)
[2024-11-09] MEDS: doxycycline 100 mg Tablet PO (08:13)
[2024-11-09] MEDS: clopidogrel 75 mg Tablet PO (08:13)
[2024-11-09] MEDS: apixaban 5 mg Tablet PO (08:13)
[2024-11-09] MEDS: collagenase oint 30 gm 1 APPLIC TOPICAL (08:15)
[2024-11-09 10:07] LABS: Basophils # 0.1 10^3/uL (0.0-0.1); Basophils % 0.9 %; Eosinophils # 0.1 10^3/uL (0.0-0.8); Hematocrit 27.9 % (37-53); Lymphocytes % 10.1 %; Mean Corpuscular HGB Conc 30.1 g/dL (30-55); Mean Corpuscular Hemoglobin 25.8 pg (27-33); Mean Corpuscular Volume 85.8 fl (82-101); Mean Platelet Volume 10.1 fL (7.4-10.4); Monocytes # 0.7 10^3/uL (0.2-0.9); Monocytes % 6.8 %; Neutrophils # 7.76 10^3/uL (1.8-7.7); Neutrophils % 78.2 %; Nucleated Red Blood Cells % 0 %; Platelet Count 209 10^3/cmm (157-399); Red Blood Count 3.25 10^6/uL (3.85-5.65); Red Cell Distribution Width 17.2 % (12.1-15.1); White Blood Count 9.93 10^3/uL (3.29-11.43)
[2024-11-09 10:30] LABS: Anion Gap 20.4 (5-19); Blood Urea Nitrogen 33 mg/dL (6-20); Calcium 8.7 mg/dL (8.5-10.5); Carbon Dioxide 21 mmol/L (22-29); Chloride 90 mmol/L (98-107); Creatinine Clr Calc Pharmacy 77.7376; Glomerular Filtration Rate 62.4 mL/min (90-130); Glucose 176 mg/dL (65-115); Osmolality Calculated 276 mOsm/kg (285-295); Potassium 4.4 mmol/L (3.5-5.1); Sodium 127 mmol/L (136-145)
[2024-11-09 10:52] LABS: Glucose Point of Care 191 mg/dL (70-110)
[2024-11-09] MEDS: insulin lispro 100 unit/1 mL SUBCUT (11:10)
[2024-11-09 11:39] VITALS: BP 130/71; PULSE 96; RESP 16; TEMP 36.8; O2SAT 98
[2024-11-09 12:45] LABS: Influenza A NEGATIVE (Negative); Influenza B NEGATIVE (Negative); Respiratory Syncytial Virus Ce NEGATIVE (Negative); SARS-CoV-2 PCR NEGATIVE (Negative)
[2024-11-09] MEDS: morphine IR 15 mg Tablet 30 MG PO (14:04)
--- NOTE | 2024-11-09 14:07 | P.PN_ITS ---
Subjective 2 Medications: Medication Review Details: Current Medications Amiodarone HCl (Amiodarone 200 Mg Tablet) 400 mg PO BID [facility] Last Admin: 11/09/24 08:12 Dose: 400 mg Apixaban (Apixaban 5 Mg Tablet) 5 mg PO BID [facility] Last Admin: 11/09/24 08:13 Dose: 5 mg Clopidogrel Bisulfate (Clopidogrel 75 Mg Tablet) 75 mg PO DAILY [facility] Last Admin: 11/09/24 08:13 Dose: 75 mg Collagenase (Collagenase Oint 30 Gm) 1 applic TOPICAL DAILY [facility] Last Admin: 11/09/24 08:15 Dose: 1 applic Doxycycline Monohydrate (Doxycycline 100 Mg Tablet) 100 mg PO BID [facility]; Protocol Last Admin: 11/09/24 08:13 Dose: 100 mg Gabapentin (Gabapentin 300 Mg Capsule) 300 mg PO BID [facility] Last Admin: 11/09/24 08:13 Dose: 300 mg Glucagon (Glucagon 1 Mg/Ml Kit 1 Ml) 1 mg IM ONCE PRN; Protocol PRN Reason: Adult Acute Hypoglycemia Nursing Prot. Dextrose (D5w) 500 mls @ 0 mls/hr IV ONCE PRN; Protocol PRN Reason: Adult Acute Hypoglycemia Prot Dextrose (D10w) 125 mls @ 750 mls/hr IV PRN PRN; Protocol PRN Reason: Adult Acute Hypoglycemia Nursing Protocol Dextrose (D10w) 250 mls @ 1,000 mls/hr IV PRN PRN; Protocol PRN Reason: Adult Acute Hypoglycemia Nursing Protocol Amiodarone HCl/Dextrose (Nexterone) 360 mg in 200 mls @ 0 mls/hr IV .Q0M [facility]; Protocol Last Titration: 11/08/24 14:29 Dose: Infused Insulin Glargine (Insulin Glargine 100 Units/1 Ml) 10 unit SUBCUT QPM [facility] Last Admin: 11/08/24 17:34 Dose: 10 unit Insulin Human Lispro (Insulin Lispro 100 Unit/1 Ml) 0 unit SUBCUT WM&BEDTIME [facility]; Protocol Last Admin: 11/09/24 11:10 Dose: 6 unit Isosorbide Mononitrate (Isosorbide Mononitrate Er 30 Mg Tablet) 15 mg PO DAILY [facility] Morphine Sulfate (Morphine Er (12 Hr) 15 Mg Tablet) 15 mg PO BID [facility] Last Admin: 11/09/24 08:12 Dose: 15 mg Morphine Sulfate (Morphine Ir 15 Mg Tablet) 30 mg PO Q6H PRN PRN Reason: SEVERE PAIN Last Admin: 11/09/24 14:04 Dose: 30 mg Naloxone HCl (Naloxone 0.4 Mg/Ml Sdv) 0.1 mg IVP Q2M PRN PRN Reason: OPIATERV Nicotine (Nicotine 14 Mg Patch) 1 patch TRANSDERMA DAILY [facility] Last Admin: 11/09/24 08:12 Dose: 1 patch Ondansetron HCl (Ondansetron 2 Mg/Ml Sdv 2 Ml) 4 mg IVP Q8H PRN PRN Reason: vomiting, or N/V if npo Pantoprazole Sodium (Pantoprazole Dr 40 Mg Tablet) 40 mg PO DAILY [facility] Last Admin: 11/09/24 08:12 Dose: 40 mg Sodium Polystyrene Sulfonate (Sodium Polystyrene Sulfonate 15 Gm/60 Ml Btl) 15 gm PO Q6H [facility] Last Admin: 11/06/24 10:58 Dose: 15 gm Tamsulosin HCl (Tamsulosin 0.4 Mg Capsule) 0.4 mg PO DAILY [facility] Last Admin: 11/09/24 08:12 Dose: 0.4 mg Vitals/I&O/Wt Last Vital Signs Temp 98.2 F 11/09/24 11:39 Pulse 96 11/09/24 11:39 Resp 16 11/09/24 11:39 BP 130/71 11/09/24 11:39 Pulse Ox 98 11/09/24 11:39 O2 Del Method Room Air 11/09/24 11:39 FiO2 21 11/05/24 21:14 11/08/24 11/09/24 11/09/24 22:59 06:59 14:59 Intake Total 600 / 1102.917 240 / 1342.917 594 / 594 Output Total 400 / 700 300 / 1000 Balance 200 / 402.917 -60 / 342.917 594 / 594 Weight last 48 hrs Weight 204 lb 9.6 oz Weight 204 lb 14.4 oz Physical Exam 2 Narrative: Patient's status post recent GENERAL: The patient is alert and oriented times three. Not in any acute distress. HEENT: No significant pallor, icterus or lymphadenopathy.Oral cavity: There are no mucous membrane lesions. NECK: Trachea appears to be central. No masses noted. No JVD or thyromegaly appreciated. RESPIRATORY: Chest is symmetrical. No intercostals muscle retraction or any accessory muscle activation. There is no chest wall tenderness. Breath sounds are heard bilaterally. No rales or rhonchi heard. No evidence of any consolidation. BREASTS: Deferred. HEART: The heart sounds are normal. No S3 or S4. Short systolic murmur in the left renal border. No diastolic murmurs.. No pericardial rub ABDOMEN: No vessel pulsations or distention. No tenderness. No organomegaly appreciated. Bowel sounds are normally heard. : Deferred. RECTAL: Deferred. LYMPHATIC: No lymphadenopathy noted in the neck. EXTREMITIES: 1-2+ edema both lower extremities. Right lower extremity is bandaged. The left elbow also is bandaged. MUSCULOSKELETAL: No acute joint deformities or swelling SKIN: There are no significant rashes or ecchymosis NEUROPSYCHIATRIC: The patient is alert and oriented x3. Appears to be in a good mood. No tremors or rigidity noted. Data 11/09/24 09:44 11/09/24 09:44 A&P Assessment and plan (1) Atrial fibrillation with rapid ventricular response: Since atrial fibrillation is chronic, the chance of maintaining sinus rhythm is very low. So I may add digoxin to the amiodarone. Need to be closely monitored on telemetry. Hemodynamically seems to be fairly stable at this point. (2) Atherosclerotic heart disease of [place] coronary artery without angina pectoris: Since the patient has no specific symptoms of coronary insufficiency, may continue on the current medications. Qualifiers: [place] vs. transplanted heart: [place] heart Qualified Code(s): I25.10 - Atherosclerotic heart disease of [place] coronary artery without angina pectoris (3) Ischemic cardiomyopathy: The LV ejection fraction was found to be 32% by echocardiogram in August. Patient is on LifeVest. May continue the same. (4) Congestive heart failure: The heart failure seems to be compensated. May continue on the current medications. Qualifiers: Heart failure type: systolic Heart failure chronicity: chronic Q ualified Code(s): I50.22 - Chronic systolic (congestive) heart failure (5) PAD (peripheral artery disease): Patient underwent recent complex RN CCU. I may go ahead and do a repeat duplex lamination to follow-up on the peripheral arterial intervention. (6) Type 2 diabetes mellitus with diabetic neuropathy, unspecified: Evaluation and management as per the primary. Aggressive blood sugar control would be appropriate. 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 Being followed up with the wound care clinic (9) COPD (chronic obstructive pulmonary disease): Seems stable. Continue on the current management. Qualifiers: COPD type: emphysema Emphysema type: centrilobular Qualified Code(s): J43.2 - Centrilobular emphysema (10) Hypotension: Currently the blood pressure is on the low normal side. I may hold off on any medication changes at this point. Patient is on Entresto which may be continued for the time being. Qualifiers: Hypotension type: other hypotension type Qualified Code(s): I95.89 - Other hypotension Plan Digoxin 0.25 mg IV every 6 hours x 4 followed by 0.12 mg p.o. daily Lower extremity arterial Doppler examination today. Continue on the current management. Other problems are Hyponatremia Chronic anemia Based on the clinical progress, further recommendations will be made. Thank you for the opportunity to evaluate this patient and make these recommendations PDMP PDMP Reviewed: Not Reviewed Coding Level of Care Code Acute Code for [facility] Fwd Diagnoses Atrial fibrillation with rapid ventricular response I48.91 Atherosclerosis of [place] coronary artery of [place] heart without angina pectoris I25.10 [place] vs. 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
--- NOTE | 2024-11-09 14:21 | PC.NURSE ---
Report called to BRAD Jason at [facility].
--- NOTE | 2024-11-09 15:07 | PC.NURSE ---
Discharge Note Patient discharged to snf via wheelchair accompanied by [facility] transportation. Discharge instructions reviewed with patient and/or marketing sales representative. Mobile pharmacy medications and/or prescriptions provided. Belongings/home medications returned.
[2024-11-09 15:08] VITALS: BP 130/71; PULSE 96; RESP 16; TEMP 36.8; O2SAT 98
--- NOTE | 2024-11-09 15:10 | PC.NURSE ---
Sent wound vac with long term staff. Cleanse wound with normal saline, pat dried with sterile 4x4 guaze. Applied xeroform to tendons, santyl to exudate, and applied dry kerlix to wound. Covered with dry 4x4, abd and wrapped with kerlix. covered with néstor bandage.
--- NOTE | 2024-11-16 20:21 | P.DS_ITS ---
Discharge Providers Date of Admission: 11/05/24 12:09 Date of Discharge: November 09, 2024 Attending Provider at Admission: Mg Aguilera MD Attending Provider at Discharge: Maxwell Lucas Consults: General [facility] Cardiology Orthopedic surgery Primary Care Provider: Yusuf Rivera DO Diagnoses at Discharge Discharge Diagnosis (1) Atrial fibrillation with rapid ventricular response: Status: Acute (2) Atherosclerotic heart disease of [place] coronary artery without angina pectoris: Status: Acute Qualifiers: [place] vs. transplanted heart: [place] heart Qualified Code(s): I25.10 - Atherosclerotic heart disease of [place] coronary artery without angina pectoris (3) Ischemic cardiomyopathy: Status: Resolved (4) Congestive heart failure: Status: Acute Qualifiers: Heart failure chronicity: chronic Heart failure type: systolic Qualified Code(s): I50.22 - Chronic systolic (congestive) heart failure (5) PAD (peripheral artery disease): Status: Acute (6) Type 2 diabetes mellitus with diabetic neuropathy, unspecified: Status: Acute Qualifiers: Diabetes mellitus [facility] insulin use: without long term care phlebotomist use Qualified Code(s): E11.40 - Type 2 diabetes mellitus with diabetic neuropathy, unspecified Permanent problem details: Patient continues to have neuropathy symptoms (7) 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: Status: Acute (8) Olecranon bursitis, left elbow: Status: Acute (9) COPD (chronic obstructive pulmonary disease): Status: Acute Qualifiers: COPD type: emphysema Emphysema type: centrilobular Qualified Code(s): J43.2 - Centrilobular emphysema (10) Hypotension: Status: Resolved Qualifiers: Hypotension type: other hypotension type Qualified Code(s): I95.89 - Other hypotension Reason for Visit Reason for Visit: critical labs at [place]; hypotension Hospital Course Hospital Course 59-year-old male with multiple comorbidities, including chronic obstructive pulmonary disease, hypertension, dyslipidemia, diabetes mellitus, chronic heart failure (EF 32%), and paroxysmal atrial fibrillation, was admitted to the hospital on November 05, 2024, with concerns for worsening right lower extremity wound infection. The patient's recent medical history was significant for percutaneous revascularization with balloon angioplasty and SFA stent placement in August 2024, which was complicated by the development of a non-healing wound requiring multiple debridements and wound VAC placement. Prior to admission, he had been receiving outpatient treatment with Bactrim for MRSA- positive wound cultures from both his right lower extremity and a separate left elbow wound. Upon admission, laboratory studies revealed significant electrolyte abnormalities, including severe hyperkalemia (K+ 6.6) and hyponatremia (Na 120). Imaging studies, including chest x-ray and CT scans of the right lower extremity, showed extensive soft tissue defects without evidence of osteomyelitis or subcutaneous gas. The patient was initially started on broad- spectrum antibiotics for presumed sepsis, and his electrolyte abnormalities were treated with standard protocols, resulting in improvement of potassium to 4.2 and sodium to 130. The hospital course was complicated by episodes of hypotension requiring brief ICU admission and Levophed support, followed by the development of atrial fib rillation with rapid ventricular response. This necessitated treatment with amiodarone and subsequent digoxin loading as recommended by Cardiology Patient was also discharged with amiodarone taper of 400 mg BID for a total of 7 days which was to decrease to 400 mg daily.. The patient's blood pressure initially required support with midodrine, but this was successfully discontinued as his condition stabilized. Throughout the admission, blood cultures remained negative, and after evaluation by General Surgery, it was determined that the wound was not acutely infected, leading to discontinuation of broad-spectrum antibiotics. A brief course of oral doxycycline was completed based on previous culture data. By the time of discharge on November 09, 2024, patient had stable blood pressure off supportive medications, normalized electrolytes, and no evidence of active infection. He was discharged to [facility] in stable condition with follow-up appointments arranged with Wound Care Clinic, Cardiology, Primary Care Physician, and General Surgery. No procedures were performed during this five- day hospitalization, and the patient was provided with appropriate discharge medications and instructions for ongoing care management. Physical Exam Narrative: General: No acute distress HEENT: Normocephalic, atraumatic Neck: Supple, no JVD Lungs: Clear to auscultation bilaterally Heart: Irregularly irregular with stable rate Abdomen: Soft, non-tender, non-distended, no organomegaly Extremities: - Right lower extremity: dressing. See s x note - Left elbow: dressed. No pain or draina [employer]: Alert and oriented x3 Discharge Data Studies Completed and Pending Completed Studies During Hospitalization Category Date Time Status CT elbow LT w con [id number] Routine Cat Scan 11/05/24 18:[address] lower leg RT w con [id number] Routine Cat Scan 11/05/24 18:05 Completed XR chest 1V portable [id number] Stat Exams 11/05/24 11:05 Completed US BELLA [CV ankle brachial index 18999] Routine Ultrasound 11/09/24 00:32 Completed Radiology Impressions Chest X-Ray 11/05/24 11:05 IMPRESSION: No acute cardiopulmonary process. Elbow CT 11/05/24 18:05 IMPRESSION: Soft tissue hematoma overlying the posterior aspect of the olecranon. Lower Extremity CT 11/05/24 18:05 IMPRESSION: 1. Extensive soft tissue defect along the anterior and medial and posteromedial aspect of the right lower extremity with extensive underlying subcutaneous edema. No subcutaneous gas identified. 2. No cortical irregularity or subcutaneous lucency to suggest osteomyelitis. Laboratory Results WBC 9.93 10^3/uL (3.29-11.43) 11/09/24 09:44 RBC 3.25 10^6/uL (3.85-5.65) L 11/09/24 09:44 Hgb 8.40 g/dL (11.27-16.99) L 11/09/24 09:44 Hct 27.9 % (37-53) L 11/09/24 09:44 MCV 85.8 fl (82-101) 11/09/24 09:44 MCH 25.8 pg (27-33) L 11/09/24 09:44 MCHC 30.1 g/dL (30-55) 11/09/24 09:44 RDW 17.2 % (12.1-15.1) H 11/09/24 09:44 Plt Count 209 10^3/cmm (157-399) 11/09/24 09:44 MPV 10.1 fL (7.4-10.4) 11/09/24 09:44 Neut % (Auto) 78.2 % 11/09/24 09:44 Lymph % (Auto) 10.1 % 11/09/24 09:44 [place] % (Auto) 6.8 % 11/09/24 09:44 Eos % (Auto) 1.0 % 11/09/24 09:44 Baso % (Auto) 0.9 % 11/09/24 09:44 Neut # (Auto) 7.76 10^3/uL (1.8-7.7) H 11/09/24 09:44 Lymph # (Auto) 1.0 10^3/uL (0.8-4.8) 11/09/24 09:44 [place] # (Auto) 0.7 10^3/uL (0.2-0.9) 11/09/24 09:44 Eos # (Auto) 0.1 10^3/uL (0.0-0.8) 11/09/24 09:44 Baso # (Auto) 0.1 10^3/uL (0.0-0.1) 11/09/24 09:44 Nucleated RBC % (auto) 0 % 11/09/24 09:44 Nucleated RBCs # 0.0 /100WBC 11/09/24 09:44 ESR 71 mm/hr (0-10) H 11/05/24 11:13 Sodium 127 mmol/L (136-145) L 11/09/24 09:44 Potassium 4.4 mmol/L (3.5-5.1) 11/09/24 09:44 Chloride 90 mmol/L (98-107) L 11/09/24 09:44 Carbon Dioxide 21 mmol/L (22-29) L 11/09/24 09:44 Anion Gap 20.4 (5-19) H 11/09/24 09:44 BUN 33 mg/dL (6-20) H 11/09/24 09:44 Creatinine 1.2 mg/dL (0.7-1.2) 11/09/24 09:44 GFR Calculation 62.4 mL/min (90-130) L 11/09/24 09:44 Glucose 176 mg/dL (65-115) H 11/09/24 09:44 POC Glucose 191 mg/dL (70-110) H 11/09/24 10:41 Estimat Average Glucose 111 11/05/24 11:13 Hemoglobin A1c 5.5 % (4.0-6.0) 11/05/24 11:13 Calculated Osmolality 276 mOsm/kg (285-295) L 11/09/24 09:44 Lactic Acid 1.5 mmol/L (0.5-2.2) 11/05/24 11:13 Calcium 8.7 mg/dL (8.5-10.5) 11/09/24 09:44 Phosphorus 4.2 mg/dL (2.5-4.5) 11/08/24 05:45 Magnesium 2.0 mg/dL (1.7-2.3) 11/08/24 05:45 Total Bilirubin 0.7 mg/dL (0.15-1.2) 11/08/24 05:45 AST 15 U/L (0-40) 11/08/24 05:45 ALT 9 U/L (0-41) 11/08/24 05:45 Alkaline Phosphatase 151 U/L (40-130) H 11/08/24 05:45 Creatine Kinase 29 U/L (39-308) L 11/05/24 11:13 Troponin T Baseline 61 ng/L (0-15) H 11/05/24 14:18 Troponin T 120 Minute 70.25 ng/L (0-15) H 11/05/24 19:30 Delta Troponin T 9.25 ABS# (0-10) 11/05/24 19:30 Troponin T Hi Sens 6Hr 63.64 ng/L (0-15) H 11/05/24 21:07 Troponin T Hi Sens 6Hr Delta 2.64 ng/L (0-12) 11/05/24 21:07 C-Reactive Protein 71.2 mg/L (0.0-4.9) H 11/05/24 19:30 NT-Pro-B Natriuret Pep 6437 pg/mL (0-125) H 11/05/24 19:30 Total Protein 6.7 g/dL (6.6-8.7) 11/08/24 05:45 Albumin 3.3 g/dL (3.5-5.2) L 11/08/24 05:45 Globulin 3.4 g/dL (1.3-4.6) 11/08/24 05:45 Triglycerides 47 mg/dL (0-150) 11/05/24 11:13 Cholesterol 99 mg/dL (0-200) 11/05/24 11:13 LDL Cholesterol, Calc 38 mg/dL (50-129) L 11/05/24 11:13 HDL Cholesterol 52 mg/dL (60-100) L 11/05/24 11:13 LDL/HDL Ratio 0.73 RATIO (0.00-3.22) 11/05/24 11:13 Cholesterol/HDL Ratio 1.90 mg/dL (1.0-5.00) 11/05/24 11:13 Procalcitonin 0.07 ng/mL (0-0.5) 11/05/24 19:30 TSH 7.09 uIU/mL (0.27-4.20) H 11/05/24 11:13 Urine Color Yellow (Yellow) 11/05/24 13:04 Urine Appearance Clear (CLEAR) 11/05/24 13:04 Urine pH 6.5 (5-7) 11/05/24 13:04 Ur Specific [place] 1.006 (1.005-1.030) 11/05/24 13:04 Urine Protein Negative (Negative) 11/05/24 13:04 Urine Glucose (UA) Negative (Normal) 11/05/24 13:04 Urine Ketones Negative (Negative) 11/05/24 13:04 Urine Blood Negative (Negative) 11/05/24 13:04 Urine Nitrate Negative (Negative) 11/05/24 13:04 Urine Bilirubin Negative (Negative) 11/05/24 13:04 Urine Urobilinogen 0.2 mg/dL (Negative) 11/05/24 13:04 Ur Leukocyte Esterase Negative (Negative) 11/05/24 13:04 Urine RBC 0-2 /hpf (0-2) 11/05/24 13:04 Urine WBC 0-5 /hpf (0-5) 11/05/24 13:04 Ur Squamous Epith Cells 0-5 /hpf (0-5) 11/05/24 13:04 Amorphous Sediment Not Reportable 11/05/24 13:04 Urine Bacteria None seen /hpf (NONE) 11/05/24 13:04 Hyaline Casts 0.40 /lpf 11/05/24 13:04 Coronavirus (PCR) Negative (Negative) 11/09/24 11:19 Influenza A (PCR) Negative (Negative) 11/09/24 11:19 Influenza Type B (PCR) Negative (Negative) 11/09/24 11:19 RSV (PCR) Negative (Negative) 11/09/24 11:19 Vitals Last Vital Signs Temp 98.2 F 11/09/24 15:08 Pulse 96 11/09/24 15:08 Resp 16 11/09/24 15:08 BP 130/71 11/09/24 15:08 Pulse Ox 98 11/09/24 15:08 O2 Del Method Room Air 11/09/24 11:39 FiO2 21 11/05/24 21:14 Discharge Plan Discharge Patient Disposition: Xfer SNF Condition: Stable Prescriptions: New pantoprazole 40 mg Tablet,Delayed Release (Dr/Ec) 40 mg PO DAILY 30 Days Qty: 30 0RF digoxin 125 mcg (0.125 mg) tablet 0.125 mg PO DAILY Qty: 30 0RF Continued fluticasone propionate 50 mcg/actuation spray,suspension 1 spray INTRANASAL DAILY duloxetine 20 mg capsule,delayed release(DR/EC) 20 mg PO BID Repatha SureClick 140 mg/mL pen injector 140 mg SUBCUT .q 2weeks Qty: 2 3RF nitroglycerin 0.4 mg tablet, sublingual See Rx Instructions .ROUTE .COMPLEX Qty: 50 5RF Dose Instruction: place one tab UNDER THE TONGUE every five minutes NEEDED FOR CHEST pain * max THREE doses * Rx Instructions: place one tab UNDER THE TONGUE every five minutes NEEDED FOR CHEST pain * max THREE doses * clopidogrel 75 mg tablet 75 mg PO DAILY Qty: 90 3RF insulin lispro [Humalog U-100 Insulin] 100 unit/mL Solution See Rx Instructions .ROUTE .COMPLEX Qty: 10 0RF Rx Instructions: Inject, subcut, 3 times daily, based on sliding scale provided if blood sugar is less that 60 call 201-250 =2 251-300=4 301-350=6 351-400 Blood sugar over 400 call nicotine 14 mg/24 hr Patch 24 Hour 1 patch transdermal DAILY Qty: 28 0RF Breztri Aerosphere 160-9-4.8 mcg/actuation HFA aerosol inhaler 2 inh INHALATION BID acetaminophen [Tylenol] 325 mg Tablet 650 mg PO Q6H PRN (Reason: Pain) bisacodyl [Dulcolax (bisacodyl)] 10 mg Suppository 10 mg [place] DAILY PRN (Reason: Constipation) omeprazole 20 mg Capsule,Delayed Release(Dr/Ec) 20 mg PO BID insulin degludec [Tresiba FlexTouch U-100] 100 unit/mL (3 mL) insulin pen 10 unit SUBCUT QPM isosorbide mononitrate 30 mg Tablet Extended Release 24 Hr 15 mg PO DAILY ranolazine 500 mg tablet extended release 12 hr 500 mg PO DAILY hydrocodone-acetaminophen 10-325 mg Tablet 1 tab PO Q6H PRN (Reason: Pain) gabapentin 300 mg Capsule 300 mg PO BID lidocaine HCl 2 % jelly in applicator 1 - 2 applic mucous membrane .EVERY SHIFT menthol-zinc oxide [Calmoseptine] 0.44-20.6 % Ointment 1 applic TOPICAL .EVERY SHIFT PRN (Reason: Pain) Eliquis 5 mg Tablet 5 mg PO BID furosemide 40 mg tablet 40 mg PO DAILY tamsulosin 0.4 mg capsule 0.4 mg PO DAILY Discontinued spironolactone 50 mg Tablet 50 mg PO DAILY sacubitril-valsartan 24-26 mg Tablet 1 tab PO DAILY potassium chloride 10 mEq tablet,ER particles/crystals 10 meq PO DAILY morphine concentrate 100 mg/5 mL (20 mg/mL) solution 20 mg PO BID Rx Instructions: administer 1ml by mouth 30 minutes prior to leaving for wound care treatment sulfamethoxazole-trimethoprim [Bactrim DS] 800-160 mg Tablet 1 tab PO BID morphine 30 mg Tablet 30 mg PO Q6H PRN (Reason: Pain) Aquaphor Original 41 % ointment 1 applic TOPICAL Q12H morphine 15 mg tablet 30 mg PO Q6H PRN (Reason: Pain) No Action (DME) Diabetic shoes with 3 pairs of custom molded inserts See Rx Instructions .Route .MEDSUPPLY Qty: 1 0RF Rx Instructions: As directed HOME (DME) Dexcom G7 Sensor Device See Rx Instructions .Route Qty: 9 0RF Rx Instructions: As directed (DME) Dexcom G7 Mechanical Car Checker Misc See Rx Instructions .Route Qty: 1 0RF Rx Instructions: As directed Discharge Orders: Discharge Order (Routine); Ordered 11/09/24 Ordered By: Maxwell Lucas Referrals: Bryan Ramirez DO [Physician] - 2 weeks (We have notified your physician's clinic of the need for a follow-up appointment to be scheduled. If you have not heard from them within the next 2 business days, please call them directly. ) Yusuf Rivera DO [Primary Care Provider] - WOUND CARE CLINIC, [Staff Physician] - 11/11/24 11:00 am Discharge Diet: Usual diet Discharge Activity: Increase activity as tolerated Patient Instructions: Digoxin (By mouth), Amiodarone (By mouth), Pantoprazole (By mouth), Opioid Safety Activity Restrictions/Additional Instructions: Wound care orders Cleanse with normal saline. Apply Santyl to fibrinous exudate at inferior portion of wound. Then apply dry dressing and cover with abds and then wrap with kerlix and secure with tape. Change daily until follow up with wound care. Discharge Attestations Time Spent in Discharge Care*: greater than 30 min Quality Metrics Clinical Quality Measures [ No reported AMI, CVA or VTE this stay] Coding Level of Care Code Acute Code for Chg Fwd Diagnoses Atrial fibrillation with rapid ventricular response I48.91 Atherosclerosis of [place] coronary artery of [place] heart without angina pectoris I25.10 [place] vs. 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
== END 2024-11-09 15:12 | disposition skilled nursing facility (03) | DRG 871 ==
LOC: ER 12:20 → ER IP 12:49 → ICU 16:12 → MEDSURG 11-06 22:24
PROVIDERS: Internal Medicine; Admitting Provider Family Medicine; Emergency Provider Family Medicine; PCP Internal Medicine; Visit Provider Hospitalist
DX: A41.9 Sepsis, unspecified organism (principal); R65.21 Severe sepsis with septic shock; I50.20 Unspecified systolic (congestive) heart failure; L97.813 Non-pressure chronic ulcer of other part of right lower leg with necrosis of muscle; E87.1 Hypo-osmolality and hyponatremia; I48.0 Paroxysmal atrial fibrillation; Z79.01 Long term (current) use of anticoagulants; I25.10 Atherosclerotic heart disease of native coronary artery without angina pectoris; I25.5 Ischemic cardiomyopathy; I11.0 Hypertensive heart disease with heart failure; E11.51 Type 2 diabetes mellitus with diabetic peripheral angiopathy without gangrene; E11.40 Type 2 diabetes mellitus with diabetic neuropathy, unspecified; E11.622 Type 2 diabetes mellitus with other skin ulcer; Z79.4 Long term (current) use of insulin; M70.22 Olecranon bursitis, left elbow; Y93.9 Activity, unspecified; J43.2 Centrilobular emphysema; I95.9 Hypotension, unspecified; E87.5 Hyperkalemia; R52 Pain, unspecified; B95.62 Methicillin resistant Staphylococcus aureus infection as the cause of diseases classified elsewhere; K21.9 Gastro-esophageal reflux disease without esophagitis; D64.9 Anemia, unspecified; N40.0 Benign prostatic hyperplasia without lower urinary tract symptoms; Z95.5 Presence of coronary angioplasty implant and graft; Z87.891 Personal history of nicotine dependence; I25.2 Old myocardial infarction; Z79.02 Long term (current) use of antithrombotics/antiplatelets
CPT/HCPCS: 11042; 11043; 11046; 36415; 36416; 71045; 73201; 73701; 80048; 80053; 80061; 81001; 82550; 82962; 83036; 83605; 83735; 83880; 84100; 84145; 84443; 84484; 85025; 85651; 86140; 87040; 87637; 93005; 93922; 94640; 94664; 96365; 96367; 96372; 96374; 96375; 96376; 97606; 99285; A4222; A6237; A6250; A6446; J0283; J1160; J1171; J1815; J1940; J2470; J2543; J3370; J3372; J3490; J7050; J7613; J7799; P9046

== ENCOUNTER → 2024-11-11 10:55 | Outpatient (BNVA) | payer MEDICARE, MEDICAID, SELFPAY | PROVIDERS: PCP Internal Medicine; Visit Provider Thoracic Surgery (Cardiothoracic Vascular Surgery) | DX: I96 Gangrene, not elsewhere classified (principal); T81.31XD Disruption of external operation (surgical) wound, not elsewhere classified, subsequent encounter; Y83.8 Other surgical procedures as the cause of abnormal reaction of the patient, or of later complication, without mention of misadventure at the time of the procedure; L98.492 Non-pressure chronic ulcer of skin of other sites with fat layer exposed | CPT/HCPCS: 11042; 11045; 97606; A6237; A6250 ==

== ENCOUNTER → 2024-11-14 15:47 | Outpatient (BNVA) | payer MEDICARE, MEDICAID, SELFPAY | PROVIDERS: PCP Internal Medicine; Visit Provider Thoracic Surgery (Cardiothoracic Vascular Surgery) | DX: E11.622 Type 2 diabetes mellitus with other skin ulcer (principal); L97.813 Non-pressure chronic ulcer of other part of right lower leg with necrosis of muscle; L89.023 Pressure ulcer of left elbow, stage 3; E11.621 Type 2 diabetes mellitus with foot ulcer; L97.521 Non-pressure chronic ulcer of other part of left foot limited to breakdown of skin; L97.511 Non-pressure chronic ulcer of other part of right foot limited to breakdown of skin | CPT/HCPCS: 97606; 99212; A6237; A6250 ==

== ENCOUNTER → 2024-11-17 14:42 | Outpatient (BNVA) | payer MEDICARE, MEDICAID, SELFPAY | PROVIDERS: PCP Internal Medicine; Visit Provider Thoracic Surgery (Cardiothoracic Vascular Surgery) | DX: I96 Gangrene, not elsewhere classified (principal); T81.31XD Disruption of external operation (surgical) wound, not elsewhere classified, subsequent encounter; Y83.8 Other surgical procedures as the cause of abnormal reaction of the patient, or of later complication, without mention of misadventure at the time of the procedure; L98.491 Non-pressure chronic ulcer of skin of other sites limited to breakdown of skin | CPT/HCPCS: 11042; 11045; 97597; A6212 ==

== ENCOUNTER → 2024-11-22 11:26 | Outpatient (BNVA) | payer MEDICARE, MEDICAID, SELFPAY | PROVIDERS: PCP Internal Medicine; Visit Provider Surgery | DX: Z09 Encounter for follow-up examination after completed treatment for conditions other than malignant neoplasm (principal); I99.8 Other disorder of circulatory system | CPT/HCPCS: 99214 ==

== ENCOUNTER → 2024-11-24 14:39 | Outpatient (BNVA) | payer MEDICARE, MEDICAID, SELFPAY | PROVIDERS: PCP Internal Medicine; Visit Provider Thoracic Surgery (Cardiothoracic Vascular Surgery) | DX: I96 Gangrene, not elsewhere classified (principal); T81.31XD Disruption of external operation (surgical) wound, not elsewhere classified, subsequent encounter; Y83.8 Other surgical procedures as the cause of abnormal reaction of the patient, or of later complication, without mention of misadventure at the time of the procedure; L98.491 Non-pressure chronic ulcer of skin of other sites limited to breakdown of skin | CPT/HCPCS: 97597; 97598 ==

== ENCOUNTER → 2024-12-01 14:42 | Outpatient (BNVA) | payer MEDICARE, MEDICAID, SELFPAY | PROVIDERS: PCP Internal Medicine; Visit Provider Thoracic Surgery (Cardiothoracic Vascular Surgery) | DX: I96 Gangrene, not elsewhere classified (principal); T81.31XD Disruption of external operation (surgical) wound, not elsewhere classified, subsequent encounter; Y83.8 Other surgical procedures as the cause of abnormal reaction of the patient, or of later complication, without mention of misadventure at the time of the procedure; L98.491 Non-pressure chronic ulcer of skin of other sites limited to breakdown of skin | CPT/HCPCS: 11042; 11045; A6212 ==

== ENCOUNTER → 2024-12-07 09:24 | Outpatient (BNVA) | payer MEDICARE, MEDICAID, SELFPAY | PROVIDERS: PCP Internal Medicine; Visit Provider Surgery | DX: Z09 Encounter for follow-up examination after completed treatment for conditions other than malignant neoplasm (principal) | CPT/HCPCS: 99214 ==

== ENCOUNTER → 2024-12-08 10:05 | Outpatient (BNVA) | payer MEDICARE, MEDICAID, SELFPAY | PROVIDERS: PCP Internal Medicine; Visit Provider Thoracic Surgery (Cardiothoracic Vascular Surgery) | DX: I96 Gangrene, not elsewhere classified (principal); T81.31XD Disruption of external operation (surgical) wound, not elsewhere classified, subsequent encounter; Y83.8 Other surgical procedures as the cause of abnormal reaction of the patient, or of later complication, without mention of misadventure at the time of the procedure; L98.491 Non-pressure chronic ulcer of skin of other sites limited to breakdown of skin | CPT/HCPCS: 11042; 97597 ==

== ENCOUNTER → 2024-12-12 11:26 | Outpatient (BNVA) | payer MEDICAID, SELFPAY | PROVIDERS: PCP Internal Medicine; Visit Provider Internal Medicine Cardiovascular Disease | DX: I25.118 Atherosclerotic heart disease of native coronary artery with other forms of angina pectoris (principal); I25.5 Ischemic cardiomyopathy; F17.200 Nicotine dependence, unspecified, uncomplicated; E78.00 Pure hypercholesterolemia, unspecified; I10 Essential (primary) hypertension; I73.9 Peripheral vascular disease, unspecified; S81.801S Unspecified open wound, right lower leg, sequela; Z95.810 Presence of automatic (implantable) cardiac defibrillator | CPT/HCPCS: 99214 ==

== ENCOUNTER → 2024-12-15 10:06 | Outpatient (BNVA) | payer MEDICARE, MEDICAID, SELFPAY | PROVIDERS: PCP Internal Medicine; Visit Provider Thoracic Surgery (Cardiothoracic Vascular Surgery) | DX: I96 Gangrene, not elsewhere classified (principal); T81.31XD Disruption of external operation (surgical) wound, not elsewhere classified, subsequent encounter; Y83.8 Other surgical procedures as the cause of abnormal reaction of the patient, or of later complication, without mention of misadventure at the time of the procedure; L98.491 Non-pressure chronic ulcer of skin of other sites limited to breakdown of skin; B35.1 Tinea unguium | CPT/HCPCS: 11042; 11045; 11721 ==

== ENCOUNTER → 2024-12-21 08:17 | Outpatient (BNVA) | payer MEDICARE, MEDICAID, SELFPAY | PROVIDERS: PCP Internal Medicine; Visit Provider Thoracic Surgery (Cardiothoracic Vascular Surgery) | DX: I96 Gangrene, not elsewhere classified (principal); T81.31XD Disruption of external operation (surgical) wound, not elsewhere classified, subsequent encounter; Y83.8 Other surgical procedures as the cause of abnormal reaction of the patient, or of later complication, without mention of misadventure at the time of the procedure; L98.491 Non-pressure chronic ulcer of skin of other sites limited to breakdown of skin | CPT/HCPCS: 11042; 11045; 97597 ==

== ENCOUNTER → 2024-12-28 08:40 | Outpatient (BNVA) | payer MEDICARE, MEDICAID, SELFPAY | PROVIDERS: PCP Internal Medicine; Visit Provider Thoracic Surgery (Cardiothoracic Vascular Surgery) | DX: I96 Gangrene, not elsewhere classified (principal); T81.31XD Disruption of external operation (surgical) wound, not elsewhere classified, subsequent encounter; Y83.8 Other surgical procedures as the cause of abnormal reaction of the patient, or of later complication, without mention of misadventure at the time of the procedure; Z09 Encounter for follow-up examination after completed treatment for conditions other than malignant neoplasm | CPT/HCPCS: 97597; 97598; A6212 ==

== ENCOUNTER → 2025-01-03 12:52 | Outpatient (BNVA) | payer MEDICARE, MEDICAID, SELFPAY | PROVIDERS: PCP Internal Medicine; Visit Provider Surgery | DX: Z09 Encounter for follow-up examination after completed treatment for conditions other than malignant neoplasm (principal) | CPT/HCPCS: 99213 ==

== ENCOUNTER → 2025-01-04 08:09 | Outpatient (BNVA) | payer MEDICARE, MEDICAID, SELFPAY | PROVIDERS: PCP Internal Medicine; Visit Provider Thoracic Surgery (Cardiothoracic Vascular Surgery) | DX: I96 Gangrene, not elsewhere classified (principal); T81.31XD Disruption of external operation (surgical) wound, not elsewhere classified, subsequent encounter; Y83.8 Other surgical procedures as the cause of abnormal reaction of the patient, or of later complication, without mention of misadventure at the time of the procedure | CPT/HCPCS: 11043; 87070; 87075; 87077; 87186; 87205 ==

== ENCOUNTER → 2025-01-11 08:25 | Outpatient (BNVA) | payer MEDICARE, MEDICAID, SELFPAY | PROVIDERS: PCP Internal Medicine | DX: E11.52 Type 2 diabetes mellitus with diabetic peripheral angiopathy with gangrene (principal); E11.622 Type 2 diabetes mellitus with other skin ulcer; L97.813 Non-pressure chronic ulcer of other part of right lower leg with necrosis of muscle | CPT/HCPCS: 11043; 11046; A6248 ==

== ENCOUNTER 2025-01-16 06:07 | Outpatient (CLI) | payer MEDICARE, MEDICAID, SELFPAY ==
--- NOTE | 2025-01-16 06:15 | USCV_ITS ---
Yusuf Buck Age: 59 Gender: M : 1965 Exam Date: 01/16/2025 06:25 Ordering Phys: Michelle Rodriguez MD ([email or web address]) Technologist: Exam Location: [facility] [place] Indication: ef BP: 130 / 75 HR: Rhythm: Sinus Technical Quality: Adequate MEASUREMENTS (Male / Female) Normal Values 2D ECHO LV Diastolic Diameter PLAX 5.5 cm 4.2 - 5.9 / 3.9 - 5.3 cm IVS Diastolic Thickness 0.7 cm 0.6 - 1.0 / 0.6 - 0.9 cm IVS Systolic Thickness 1.2 cm LVPW Diastolic Thickness 1.5 cm 0.6 - 1.0 / 0.6 - 0.9 cm LVPW Systolic Thickness 1.4 cm LVOT Diameter 2.0 cm LV Ejection Fraction 2D Teich 23.0 % LV Ejection Fraction MOD 4C 18.5 % LV Ejection Fraction MOD 2C 12.7 % LV Ejection Fraction 2C AL 10.7 % LA Diameter 4.5 cm RA Systolic Volume 4C AL 112.7 ml RA Systolic Volume 4C MOD 110.9 ml Aorta at Sinotubular Diameter 3.0 cm M-MODE LA Ao Ratio MM 1.4 AV Cusp Separation MM 0.4 cm FINDINGS Left Ventricle Severe diffuse hypokinesis of the left ventricular ejection fraction of 18.5%. Mildly dilated LV cavity. Right Ventricle Mildly dilated RV cavity with a slightly diminished ejection fraction Right Atrium Mildly increased right atrial size. Left Atrium Mildly increased left atrial size. Mitral Valve No gross abnormalities noted . Aortic Valve Thickened aortic valve. Tricuspid Valve No gross abnormalities noted . Pulmonic Valve Pulmonic valve not well visualized. Pericardium No pericardial effusion. Aorta Normal aortic annulus size. IVC Inferior vena cava not visualized. CONCLUSIONS Severe diffuse hypokinesis of the left ventricular ejection fraction of 18.5%. Mildly dilated LV cavity. Mildly dilated RV cavity with a slightly diminished ejection fraction. Mild biatrial enlargement There is no pericardial effusion. There are no intracardiac masses. Compared to the study from 09/01/2024, there is significant drop in the LV ejection fraction from 32% to 18.5% Dr Michelle Rodriguez MD [facility] (Electronically Signed) Final Date: 19 January 2025 23:19 S
== END 2025-01-16 06:08 | disposition home or self-care (01) ==
LOC: RAD 06:08
PROVIDERS: PCP Internal Medicine; Visit Provider Internal Medicine Cardiovascular Disease
DX: I42.9 Cardiomyopathy, unspecified (principal); R93.1 Abnormal findings on diagnostic imaging of heart and coronary circulation; I51.7 Cardiomegaly; I35.8 Other nonrheumatic aortic valve disorders
CPT/HCPCS: 93308

== ENCOUNTER → 2025-01-18 08:25 | Outpatient (BNVA) | payer MEDICARE, MEDICAID, SELFPAY | PROVIDERS: PCP Internal Medicine; Visit Provider Thoracic Surgery (Cardiothoracic Vascular Surgery) | DX: E11.52 Type 2 diabetes mellitus with diabetic peripheral angiopathy with gangrene (principal); E11.622 Type 2 diabetes mellitus with other skin ulcer; L97.813 Non-pressure chronic ulcer of other part of right lower leg with necrosis of muscle | CPT/HCPCS: 11043; 11046 ==

== ENCOUNTER → 2025-01-31 11:00 | Outpatient (BNVA) | payer MEDICARE, MEDICAID, SELFPAY | PROVIDERS: PCP Internal Medicine; Visit Provider Surgery | DX: Z09 Encounter for follow-up examination after completed treatment for conditions other than malignant neoplasm (principal) | CPT/HCPCS: 99213 ==

== ENCOUNTER → 2025-02-01 08:39 | Outpatient (BNVA) | payer MEDICARE, MEDICAID, SELFPAY | PROVIDERS: PCP Internal Medicine; Visit Provider Thoracic Surgery (Cardiothoracic Vascular Surgery) | DX: I96 Gangrene, not elsewhere classified (principal); T81.31XD Disruption of external operation (surgical) wound, not elsewhere classified, subsequent encounter; Y83.8 Other surgical procedures as the cause of abnormal reaction of the patient, or of later complication, without mention of misadventure at the time of the procedure | CPT/HCPCS: 11043; 11046; A6213 ==

== ENCOUNTER → 2025-02-08 08:56 | Outpatient (BNVA) | payer MEDICARE, MEDICAID, SELFPAY | PROVIDERS: PCP Internal Medicine; Visit Provider Thoracic Surgery (Cardiothoracic Vascular Surgery) | DX: I96 Gangrene, not elsewhere classified (principal); T81.31XD Disruption of external operation (surgical) wound, not elsewhere classified, subsequent encounter; Y83.8 Other surgical procedures as the cause of abnormal reaction of the patient, or of later complication, without mention of misadventure at the time of the procedure | CPT/HCPCS: 11043 ==

== ENCOUNTER → 2025-02-15 08:44 | Outpatient (BNVA) | payer MEDICARE, MEDICAID, SELFPAY | PROVIDERS: PCP Internal Medicine; Visit Provider Thoracic Surgery (Cardiothoracic Vascular Surgery) | DX: I96 Gangrene, not elsewhere classified (principal); T81.31XD Disruption of external operation (surgical) wound, not elsewhere classified, subsequent encounter; Y83.8 Other surgical procedures as the cause of abnormal reaction of the patient, or of later complication, without mention of misadventure at the time of the procedure | CPT/HCPCS: 11043 ==

== ENCOUNTER → 2025-02-16 10:13 | Outpatient (BNVA) | payer MEDICARE, MEDICAID, SELFPAY | PROVIDERS: PCP Internal Medicine; Visit Provider Podiatrist Foot & Ankle Surgery | DX: E11.40 Type 2 diabetes mellitus with diabetic neuropathy, unspecified (principal); B35.1 Tinea unguium; L84 Corns and callosities; I73.9 Peripheral vascular disease, unspecified; G62.9 Polyneuropathy, unspecified; Z79.4 Long term (current) use of insulin | CPT/HCPCS: 11721 ==

== ENCOUNTER → 2025-02-27 08:18 | Outpatient (BNVA) | payer MEDICARE, MEDICAID, SELFPAY | PROVIDERS: PCP Internal Medicine; Visit Provider Thoracic Surgery (Cardiothoracic Vascular Surgery) | DX: I96 Gangrene, not elsewhere classified (principal); T81.31XD Disruption of external operation (surgical) wound, not elsewhere classified, subsequent encounter; Y83.8 Other surgical procedures as the cause of abnormal reaction of the patient, or of later complication, without mention of misadventure at the time of the procedure; L97.821 Non-pressure chronic ulcer of other part of left lower leg limited to breakdown of skin | CPT/HCPCS: 97597; 97598 ==

== ENCOUNTER → 2025-03-06 10:31 | Outpatient (BNVA) | payer MEDICARE, MEDICAID, SELFPAY | PROVIDERS: PCP Internal Medicine; Visit Provider Thoracic Surgery (Cardiothoracic Vascular Surgery) | DX: E11.52 Type 2 diabetes mellitus with diabetic peripheral angiopathy with gangrene (principal); E11.622 Type 2 diabetes mellitus with other skin ulcer; L97.811 Non-pressure chronic ulcer of other part of right lower leg limited to breakdown of skin; L97.821 Non-pressure chronic ulcer of other part of left lower leg limited to breakdown of skin | CPT/HCPCS: 97597; 97598 ==

== ENCOUNTER 2025-03-09 17:43 | Emergency (ER) | payer MEDICARE, MEDICAID, SELFPAY ==
[2025-03-09 17:48] VITALS: BP 124/80; PULSE 110; RESP 18; TEMP 36.6; O2SAT 96; BMI 34.4
--- NOTE | 2025-03-09 17:48 | USR_ITS ---
PROCEDURE INFORMATION: Exam: US Duplex Left Lower Extremity Arteries Or Arterial Bypass Grafts Exam date and time: 03/09/2025 6:41 PM Age: 59 years old Clinical indication: Other: Chronic non-healing ulcerations of the left calf; Additional info: Concern for worsening ischemia TECHNIQUE: Imaging protocol: Left Real-time duplex scan of the arteries or arterial bypass grafts of the left lower extremity with 2-D temple scale, color Doppler flow and spectral waveform analysis. Images documented and saved. COMPARISON: CT angio abd aorta runof [id number] 09/01/2024 9:53 AM FINDINGS: Left external iliac artery: No visible flow in the proximal artery. Monophasic waveform with normal peak systolic velocity and brisk upstroke in the distal artery. Left common femoral artery: No occlusion or significant stenosis. Monophasic waveform. Left superficial femoral artery: No occlusion or significant stenosis. Monophasic waveform. Left popliteal artery: No occlusion or significant stenosis. Monophasic waveform. Left calf/foot arteries: No occlusion or significant stenosis in the visualized arteries. Monophasic waveforms. Dorsalis pedis artery is patent. Ankle-brachial indices: Left brachial artery: 112 mm Hg. Left posterior tibial artery: 119 mm Hg, index 1.1 (normal). Left dorsalis pedis artery: 101 mm Hg, index 0.9 (borderline) US/CV arterial duplex [facility] [id number] IMPRESSION: 1. No visible arterial flow in the proximal left external iliac artery. This corresponds to a region of severe stenosis when correlated to the prior CTA. 2. Monophasic waveforms without significant stenosis in the remainder of the left lower extremity arteries.
--- NOTE | 2025-03-09 18:10 | W.ED.EXTPRO ---
HPI - Extremity Problem General: Chief complaint: Extremity Problem,Nontraumatic Stated complaint: left leg problems Time Seen by Provider: 03/09/25 17:45 History of Present Illness: 59-year-old man with history of diabetes and peripheral vascular disease who has been dealing with chronic wounds on his lower extremities. He follows with vascular surgery at [place] and with Dr. Anthony in wound clinic here. He was sent to the emergency room today with concern for worsening left lower extremity issues. He says he has some pain in the upper part of his leg but feels numb below. No fevers. Patient is uncertain what changes prompted is being sent to the emergency room. Related Data Home Medications ?Medication ?Instructions ?Recorded ?Confirmed fluticasone propionate 50 1 spray intranasal DAILY 04/09/20 02/16/25 mcg/actuation nasal spray,suspension duloxetine 20 mg capsule,delayed 20 mg PO BID 06/23/22 02/16/25 release acetaminophen 325 mg tablet 650 mg PO Q6H PRN Pain 09/26/24 02/16/25 (Tylenol) bisacodyl 10 mg rectal suppository [address] DAILY PRN Constipation 09/26/24 02/16/25 (Dulcolax (bisacodyl)) budesonide 160 mcg-glycopyr 9 2 inh inhalation BID 09/26/24 02/16/25 mcg-formot 4.8 mcg/actuation HFA inhaler (Breztri Aerosphere) insulin degludec 100 unit/mL (3 10 unit SUBCUT QPM 10/06/24 02/16/25 mL) subcutaneous pen (Tresiba FlexTouch U-100 insulin) omeprazole 20 mg capsule,delayed 20 mg PO BID 10/06/24 02/16/25 release isosorbide mononitrate 30 mg 15 mg PO DAILY 10/24/24 02/16/25 tablet,extended release 24 hr ranolazine 500 mg tablet,extended 500 mg PO DAILY 10/24/24 02/16/25 release,12 hr apixaban 5 mg tablet (Eliquis) 5 mg PO BID 11/05/24 02/16/25 furosemide 40 mg tablet 40 mg PO DAILY 11/05/24 02/16/25 gabapentin 300 mg capsule 300 mg PO BID 11/05/24 02/16/25 hydrocodone 10 mg-acetaminophen 1 tab PO Q6H PRN Pain 11/05/24 02/16/25 325 mg tablet lidocaine HCl 2 % mucosal jelly in 1 - 2 applic mucous membrane 11/05/24 02/16/25 applicator .EVERY SHIFT menthol 0.44 %-zinc oxide 20.6 % 1 applic topical .EVERY SHIFT PRN 11/05/24 02/16/25 topical ointment (Calmoseptine) Pain tamsulosin 0.4 mg capsule 0.4 mg PO DAILY 11/05/24 02/16/25 morphine 100 mg capsule,extended 100 mg PO DAILY 12/12/24 02/16/25 release pellets Previous Rx's ?Medication ?Instructions ?Recorded Diabetic shoes with 3 pairs of #1 ea 01/19/23 custom molded inserts blood-glucose sensor (Dexcom G7 #9 ea 07/01/23 Sensor device) blood-glucose,senior field engineer,cont #1 ea 07/01/23 (Dexcom G7 Marketing And Promotions Manager) nitroglycerin 0.4 mg sublingual See Rx Instructions .Route 04/22/24 tablet .COMPLEX #50 tabs evolocumab 140 mg/mL subcutaneous 140 mg SUBCUT .q 2weeks #2 mL 06/15/24 pen injector (Repatha SureClick) insulin lispro 100 unit/mL See Rx Instructions .Route 09/23/24 subcutaneous solution (Humalog .COMPLEX #10 mL U-100 Insulin) nicotine 14 mg/24 hr daily 1 patch transdermal DAILY #28 ea 09/23/24 transdermal patch clopidogrel 75 mg tablet 75 mg PO DAILY #90 tabs 10/25/24 digoxin 125 mcg (0.125 mg) tablet 0.125 mg PO DAILY #30 tabs 11/09/24 amoxicillin 500 mg-potassium 1 tab PO BID #14 tabs 01/09/25 clavulanate 125 mg tablet (Augmentin) Allergies Allergy/AdvReac Type Severity Reaction Status Date / Time No Known Allergies Allergy Verified 02/16/25 10:20 Review of Systems Narrative: Constitutional symptoms: Negative except as documented in HPI. Skin symptoms: Negative except as documented in HPI. Eye symptoms: Negative except as documented in HPI. ENMT symptoms: Negative except as documented in HPI. Respiratory symptoms: Negative except as documented in HPI. Cardiovascular symptoms: Negative except as documented in HPI. Gastrointestinal symptoms: Negative except as documented in HPI. Genitourinary symptoms: Negative except as documented in HPI. Musculoskeletal symptoms: Negative except as documented in HPI. Neurologic symptoms: Negative except as documented in HPI. Psychiatric symptoms: Negative except as documented in HPI. Endocrine symptoms: Negative except as documented in HPI. 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 Lower extremity edema Chronic venous insufficiency Chest pain, unspecified History of intravenous drug use in remission COPD (chronic obstructive pulmonary disease) Congestive heart failure Angina pectoris Hematuria, microscopic Acute pharyngitis, unspecified Hx of myocardial infarction Chronic low back pain Benign essential HTN Arthritis Encounter for long-term (current) use of NSAIDs Atypical chest pain Benign prostatic hyperplasia without lower urinary tract symptoms High blood pressure Hypercholesteremia Mixed hyperlipidemia Diabetes mellitus Long-term current use of opiate analgesic Pain management contract signed DDD (degenerative disc disease), lumbar Tobacco use disorder Smokes to calm his nerves Chronic pain of both knees Gastro-esophageal reflux disease without esophagitis Right testicular pain Calculus of kidney Fracture of arm Abdominal pain of unknown etiology Adhesive tendinitis Male erectile dysfunction, unspecified Abscess, dental Migraine Intervertebral disc disorders with radiculopathy, lumbar region Acute bilateral knee pain Acute left-sided low back pain Other senior care (current) drug therapy Type 2 diabetes mellitus with diabetic neuropathy, unspecified Patient continues to have neuropathy symptoms Aortic valvar stenosis Nicotine dependence, unspecified, uncomplicated Fracture of wrist Surgical History History of PTCA S/P tendon repair H/O hernia repair H/O umbilical hernia repair H/O knee surgery Family History Mother , Metastasis Cancer Hypertension Stomach ulcer Arthritis Father , Gunshot Hypertension Sister Clotting disorder Grandmother CAD (coronary artery disease) Cancer Stroke Grandfather CAD (coronary artery disease) Cancer Family/Other Suicide Other Heart disease Denies family history of Diabetes Dementia Chronic kidney disease (CKD) Anesthesia complication Bleeding disorder Lung disease Social History Smoking and tobacco/nicotine status: former use of tobacco/nicotine Alcohol intake: former Year of sobriety/quit date alcohol: 2015 Substance/Drug Use: never Lives independently: No Housing: Shelter Marital status: Legally Current occupational status: disabled Do you think of yourself as: Straight/Heterosexual Current gender identity: Male Physical Exam Narrative: EXAM NARRATIVE: General: Alert, no acute distress. Skin: Warm, dry. Dressing removed from the left leg. He does have some weeping and chronic venous stasis changes but no active wounds at this time. He has good perfusion of his feet. Head: Normocephalic, atraumatic. Neck: Supple, trachea midline. Eye: Extraocular movements are intact. Ears, nose, mouth and throat: mucosa moist. Cardiovascular: Regular, Normal peripheral perfusion. Respiratory: Lungs are clear to auscultation, respirations are non-labored, breath sounds are equal, Symmetrical chest wall expansion. Gastrointestinal: Soft, Nontender, Non distended Musculoskeletal: Normal ROM, no deformity. Neurological: Alert and oriented, No focal neurological deficit observed. Psychiatric: Cooperative, appropriate mood & affect. Course Vital Signs: Vital signs: Vital Signs Temperature 97.8 F 03/09/25 17:48 Pulse Rate 120 H 03/09/25 20:00 Respiratory Rate 18 03/09/25 17:48 Blood Pressure 114/71 03/09/25 20:00 Pulse Oximetry 97 03/09/25 20:00 Oxygen Delivery Me thod Room Air 03/09/25 17:48 MDM - Extremity (Nontraumatic) Medical Decision Making Medical decision making: Differential diagnosis including but not limited to and based on the above HPI, review of systems and physical exam: Patient with chronic wounds sent from alf for evaluation for possible worsening of arterial disease. Orders placed to evaluate differential diagnosis based on the above differential, HPI and physical exam Lab Review: Laboratory results were reviewed and interpreted by myself the emergency room physician. No leukocytosis. No anemia. No renal failure. CRP is improved from previous. Ultrasound of the lower extremity: No visible arterial flow in the left external iliac artery. This corresponds to CTA that was done previously. No acute changes. Good collateral flow. This was reviewed and interpreted by myself the emergency room physician. I also reviewed the radiology report. I reviewed the patient's medical record. Reexamination: Patient remained stable. No increased work of breathing. No altered mental status. No focal motor deficits. Assessment and plan: Chronic peripheral vascular disease with chronic venous stasis dermatitis and chronic wounds - Discharged home - Discussed findings and plan with patient. Answered any questions. - All laboratory values were reviewed and interpreted personally by myself, the ER physician - All imaging was reviewed and interpreted personally by myself, the ER physician. - Evaluation and treatment of this problem were appropriate in the emergency setting Lab Data 03/09/25 18:15 03/09/25 18:15 Radiology Impressions Duplex Scan Lower Extremity Artery 03/09/25 17:48 IMPRESSION: 1. No visible arterial flow in the proximal left external iliac artery. This corresponds to a region of severe stenosis when correlated to the prior CTA. 2. Monophasic waveforms without significant stenosis in the remainder of the left lower extremity arteries. Laboratory Results WBC 6.39 10^3/uL (3.29-11.43) 03/09/25 18:15 RBC 4.58 10^6/uL (3.85-5.65) 03/09/25 18:15 Hgb 10.50 g/dL (11.27-16.99) L 03/09/25 18:15 Hct 36.0 % (37-53) L 03/09/25 18:15 MCV 78.6 fl (82-101) L 03/09/25 18:15 MCH 22.9 pg (27-33) L 03/09/25 18:15 MCHC 29.2 g/dL (30-55) L 03/09/25 18:15 RDW 21.7 % (12.1-15.1) H 03/09/25 18:15 Plt Count 190 10^3/cmm (157-399) 03/09/25 18:15 MPV 9.4 fL (7.4-10.4) 03/09/25 18:15 Neut % (Auto) 78.3 % 03/09/25 18:15 Lymph % (Auto) 10.0 % 03/09/25 18:15 Mora % (Auto) 6.4 % 03/09/25 18:15 Eos % (Auto) 3.8 % 03/09/25 18:15 Baso % (Auto) 0.9 % 03/09/25 18:15 Neut # (Auto) 5.00 10^3/uL (1.8-7.7) 03/09/25 18:15 Lymph # (Auto) 0.6 10^3/uL (0.8-4.8) L 03/09/25 18:15 Mora # (Auto) 0.4 10^3/uL (0.2-0.9) 03/09/25 18:15 Eos # (Auto) 0.2 10^3/uL (0.0-0.8) 03/09/25 18:15 Baso # (Auto) 0.1 10^3/uL (0.0-0.1) 03/09/25 18:15 Nucleated RBC % (auto) 0 % 03/09/25 18:15 Nucleated RBCs # 0.0 /100WBC 03/09/25 18:15 ESR 36 mm/hr (0-10) H 03/09/25 18:15 Sodium 126 mmol/L (136-145) L 03/09/25 18:15 Potassium 4.6 mmol/L (3.5-5.1) 03/09/25 18:15 Chloride 90 mmol/L (98-107) L 03/09/25 18:15 Carbon Dioxide 26 mmol/L (22-29) 03/09/25 18:15 Anion Gap 14.6 (5-19) 03/09/25 18:15 BUN 9 mg/dL (6-20) 03/09/25 18:15 Creatinine 0.6 mg/dL (0.7-1.2) L 03/09/25 18:15 GFR Calculation 138.9 mL/min (90-130) H 03/09/25 18:15 Glucose 151 mg/dL (65-115) H 03/09/25 18:15 Calculated Osmolality 264 mOsm/kg (285-295) L 03/09/25 18:15 Lactic Acid 2.1 mmol/L (0.5-2.2) 03/09/25 18:15 Calcium 8.1 mg/dL (8.5-10.5) L 03/09/25 18:15 Total Bilirubin 0.7 mg/dL (0.15-1.2) 03/09/25 18:15 AST 15 U/L (0-40) 03/09/25 18:15 ALT 8 U/L (0-41) 03/09/25 18:15 Alkaline Phosphatase 223 U/L (40-130) H 03/09/25 18:15 C-Reactive Protein 38.9 mg/L (0.0-4.9) H 03/09/25 18:15 Total Protein 6.8 g/dL (6.6-8.7) 03/09/25 18:15 Albumin 3.1 g/dL (3.5-5.2) L 03/09/25 18:15 Globulin 3.7 g/dL (1.3-4.6) 03/09/25 18:15 All radiology interpretation(s) finalized by discharge Discharge Plan Discharge Patient Disposition: Home Clinical Impression: Peripheral vascular disease Condition: Stable Prescriptions: No Action fluticasone propionate 50 mcg/actuation spray,suspension 1 spray INTRANASAL DAILY morphine 100 mg capsule,extend.release pellets 100 mg PO DAILY duloxetine 20 mg capsule,delayed release(DR/EC) 20 mg PO BID (DME) Diabetic shoes with 3 pairs of custom molded inserts See Rx Instructions .Route .MEDSUPPLY Qty: 1 0RF Rx Instructions: As directed HOME ([facility] [place]) Dexcom G7 Sensor Device See Rx Instructions .Route Qty: 9 0RF Rx Instructions: As directed ([facility] [place]) Dexcom G7 Marketing And Promotions Manager Misc See Rx Instructions .Route Qty: 1 0RF Rx Instructions: As directed Repatha SureClick 140 mg/mL pen injector 140 mg SUBCUT .q 2weeks Qty: 2 3RF nitroglycerin 0.4 mg tablet, sublingual See Rx Instructions .ROUTE .COMPLEX Qty: 50 5RF Dose Instruction: place one tab UNDER THE TONGUE every five minutes NEEDED FOR CHEST pain * max THREE doses * Rx Instructions: place one tab UNDER THE TONGUE every five minutes NEEDED FOR CHEST pain * max THREE doses * clopidogrel 75 mg tablet 75 mg PO DAILY Qty: 90 3RF amoxicillin-pot clavulanate [Augmentin] 500-125 mg tablet 1 tab PO BID Qty: 14 0RF insulin lispro [Humalog U-100 Insulin] 100 unit/mL Solution See Rx Instructions .ROUTE .COMPLEX Qty: 10 0RF Rx Instructions: Inject, subcut, 3 times daily, based on sliding scale provided if blood sugar is less that 60 call 201-250 =2 251-300=4 301-350=6 351-400 Blood sugar over 400 call nicotine 14 mg/24 hr Patch 24 Hour 1 patch transdermal DAILY Qty: 28 0RF Breztri Aerosphere 160-9-4.8 mcg/actuation HFA aerosol inhaler 2 inh INHALATION BID acetaminophen [Tylenol] 325 mg Tablet 650 mg PO Q6H PRN (Reason: Pain) bisacodyl [Dulcolax (bisacodyl)] 10 mg Suppository [address] DAILY PRN (Reason: Constipation) omeprazole 20 mg Capsule,Delayed Release(Dr/Ec) 20 mg PO BID insulin degludec [Tresiba FlexTouch U-100] 100 unit/mL (3 mL) insulin pen 10 unit SUBCUT QPM isosorbide mononitrate 30 mg Tablet Extended Release 24 Hr 15 mg PO DAILY ranolazine 500 mg tablet extended release 12 hr 500 mg PO DAILY hydrocodone-acetaminophen 10-325 mg Tablet 1 tab PO Q6H PRN (Reason: Pain) gabapentin 300 mg Capsule 300 mg PO BID lidocaine HCl 2 % jelly in applicator 1 - 2 applic mucous membrane .EVERY SHIFT menthol-zinc oxide [Calmoseptine] 0.44-20.6 % Ointment 1 applic TOPICAL .EVERY SHIFT PRN (Reason: Pain) Eliquis 5 mg Tablet 5 mg PO BID furosemide 40 mg tablet 40 mg PO DAILY tamsulosin 0.4 mg capsule 0.4 mg PO DAILY digoxin 125 mcg (0.125 mg) tablet 0.125 mg PO DAILY Qty: 30 0RF Discharge Orders: Discharge ED (Routine); Ordered 03/09/25 Ordered By: Maria T Bruner Referrals: Yusuf Rivera DO [Primary Care Provider, Internal Medicine] Discharge Diet: Usual diet Discharge Activity: Increase activity as tolerated Patient Instructions: Opioid Safety, Pain Management Activity Restrictions/Additional Instructions: You have good collateral blood flow with no acute process. Nothing is changed as far as arterial occlusions in the left leg from previous studies. You need to follow as an outpatient with vascular surgery. Thank you for choosing [facility] for your healthcare needs today. You have been screened and evaluated and felt safe for discharge. Health conditions do change or evolve sometimes and as such it is important that you follow up with your Primary Doctor to be re checked, 3-5 days is a general good time frame for follow up. You are always welcome to return to the ED for re assessment if your symptoms are worsening or you have new concerns Print Language: Croatian Coding Level of Care Code ED Stereoplotter Operator for Yee Ibrahim
[2025-03-09 18:29] LABS: Basophils # 0.1 10^3/uL (0.0-0.1); Basophils % 0.9 %; Eosinophils # 0.2 10^3/uL (0.0-0.8); Eosinophils % 3.8 %; Lymphocytes # 0.6 10^3/uL (0.8-4.8); Mean Corpuscular HGB Conc 29.2 g/dL (30-55); Mean Corpuscular Hemoglobin 22.9 pg (27-33); Mean Corpuscular Volume 78.6 fl (82-101); Mean Platelet Volume 9.4 fL (7.4-10.4); Monocytes # 0.4 10^3/uL (0.2-0.9); Monocytes % 6.4 %; Neutrophils % 78.3 %; Nucleated Red Blood Cells % 0 %; Platelet Count 190 10^3/cmm (157-399); Red Blood Count 4.58 10^6/uL (3.85-5.65); Red Cell Distribution Width 21.7 % (12.1-15.1); White Blood Count 6.39 10^3/uL (3.29-11.43)
[2025-03-09 18:45] LABS: Lactic Sepsis W/Reflex 2.1 mmol/L (0.5-2.2)
[2025-03-09 18:46] LABS: Alanine Aminotransferase 8 U/L (0-41); Albumin Level 3.1 g/dL (3.5-5.2); Alkaline Phosphatase 223 U/L (40-130); Anion Gap 14.6 (5-19); Aspartate Amino Transferase 15 U/L (0-40); Blood Urea Nitrogen 9 mg/dL (6-20); C Reactive Protein 38.9 mg/L (0.0-4.9); Calcium 8.1 mg/dL (8.5-10.5); Carbon Dioxide 26 mmol/L (22-29); Chloride 90 mmol/L (98-107); Globulin 3.7 g/dL (1.3-4.6); Glomerular Filtration Rate 138.9 mL/min (90-130); Glucose 151 mg/dL (65-115); Osmolality Calculated 264 mOsm/kg (285-295); Potassium 4.6 mmol/L (3.5-5.1); Sodium 126 mmol/L (136-145); Total Bilirubin 0.7 mg/dL (0.15-1.2); Total Protein 6.8 g/dL (6.6-8.7)
[2025-03-09 18:48] LABS: Creatinine Clr Calc Pharmacy 167.8152
[2025-03-09 18:52] LABS: Erythrocyte Sedimentation Rate 36 mm/hr (0-10)
[2025-03-09 18:57] VITALS: BP 124/54; PULSE 85; O2SAT 97
[2025-03-09 19:00] VITALS: BP 106/50; PULSE 112; O2SAT 96
[2025-03-09 19:30] VITALS: BP 107/50; PULSE 119; O2SAT 94
[2025-03-09 20:00] VITALS: BP 114/71; PULSE 120; O2SAT 97
[2025-03-09 20:14] LABS: Reflex Lactate Order REFLEX LACTIC ORDERD
== END 2025-03-09 23:06 | disposition home or self-care (01) ==
PROVIDERS: Emergency Provider Emergency Medicine; PCP Internal Medicine
DX: E11.51 Type 2 diabetes mellitus with diabetic peripheral angiopathy without gangrene (principal); J44.9 Chronic obstructive pulmonary disease, unspecified; I11.0 Hypertensive heart disease with heart failure; I50.9 Heart failure, unspecified; E78.2 Mixed hyperlipidemia; I25.2 Old myocardial infarction; E11.40 Type 2 diabetes mellitus with diabetic neuropathy, unspecified; Z87.891 Personal history of nicotine dependence; Z79.899 Other long term (current) drug therapy; Z79.4 Long term (current) use of insulin; Z79.01 Long term (current) use of anticoagulants
CPT/HCPCS: 36415; 80053; 83605; 85025; 85651; 86140; 87040; 93926; 99284

== ENCOUNTER → 2025-03-13 10:34 | Outpatient (BNVA) | payer MEDICARE, MEDICAID, SELFPAY | PROVIDERS: PCP Internal Medicine; Visit Provider Thoracic Surgery (Cardiothoracic Vascular Surgery) | DX: E11.52 Type 2 diabetes mellitus with diabetic peripheral angiopathy with gangrene (principal); E11.622 Type 2 diabetes mellitus with other skin ulcer; L97.821 Non-pressure chronic ulcer of other part of left lower leg limited to breakdown of skin; T81.31XD Disruption of external operation (surgical) wound, not elsewhere classified, subsequent encounter; Y83.8 Other surgical procedures as the cause of abnormal reaction of the patient, or of later complication, without mention of misadventure at the time of the procedure | CPT/HCPCS: 97597; 97598; A6197 ==

== ENCOUNTER → 2025-03-14 11:10 | Outpatient (BNVA) | payer MEDICARE, MEDICAID, SELFPAY | PROVIDERS: PCP Internal Medicine; Visit Provider Surgery | DX: I73.9 Peripheral vascular disease, unspecified (principal) | CPT/HCPCS: 99213 ==

== ENCOUNTER → 2025-03-20 10:25 | Outpatient (BNVA) | payer MEDICARE, MEDICAID, SELFPAY | PROVIDERS: PCP Internal Medicine; Visit Provider Thoracic Surgery (Cardiothoracic Vascular Surgery) | DX: E11.52 Type 2 diabetes mellitus with diabetic peripheral angiopathy with gangrene (principal); E11.622 Type 2 diabetes mellitus with other skin ulcer; L97.821 Non-pressure chronic ulcer of other part of left lower leg limited to breakdown of skin; T81.31XD Disruption of external operation (surgical) wound, not elsewhere classified, subsequent encounter; Y83.8 Other surgical procedures as the cause of abnormal reaction of the patient, or of later complication, without mention of misadventure at the time of the procedure | CPT/HCPCS: 11043; 97597; 97598 ==

== ENCOUNTER → 2025-03-20 13:00 | Outpatient (BNVA) | payer MEDICARE, MEDICAID, SELFPAY | PROVIDERS: PCP Internal Medicine; Visit Provider Nurse Practitioner Family | DX: I25.118 Atherosclerotic heart disease of native coronary artery with other forms of angina pectoris (principal); I25.5 Ischemic cardiomyopathy; F17.200 Nicotine dependence, unspecified, uncomplicated; E78.00 Pure hypercholesterolemia, unspecified; I10 Essential (primary) hypertension; I73.9 Peripheral vascular disease, unspecified; Z95.810 Presence of automatic (implantable) cardiac defibrillator; S81.801A Unspecified open wound, right lower leg, initial encounter; X58.XXXA Exposure to other specified factors, initial encounter | CPT/HCPCS: 11043; 97597; 97598; 99214 ==

== ENCOUNTER → 2025-03-27 10:00 | Outpatient (BNVA) | payer MEDICARE, MEDICAID, SELFPAY | PROVIDERS: PCP Internal Medicine; Visit Provider Thoracic Surgery (Cardiothoracic Vascular Surgery) | DX: E11.52 Type 2 diabetes mellitus with diabetic peripheral angiopathy with gangrene (principal); E11.622 Type 2 diabetes mellitus with other skin ulcer; L97.811 Non-pressure chronic ulcer of other part of right lower leg limited to breakdown of skin; L97.821 Non-pressure chronic ulcer of other part of left lower leg limited to breakdown of skin | CPT/HCPCS: 97597; 97598; A6253 ==

== ENCOUNTER → 2025-04-03 10:59 | Outpatient (BNVA) | payer MEDICARE, MEDICAID, SELFPAY | PROVIDERS: PCP Internal Medicine; Visit Provider Thoracic Surgery (Cardiothoracic Vascular Surgery) | DX: E11.52 Type 2 diabetes mellitus with diabetic peripheral angiopathy with gangrene (principal); E11.621 Type 2 diabetes mellitus with foot ulcer; L97.815 Non-pressure chronic ulcer of other part of right lower leg with muscle involvement without evidence of necrosis; L97.821 Non-pressure chronic ulcer of other part of left lower leg limited to breakdown of skin | CPT/HCPCS: 97597; 97598 ==

== ENCOUNTER → 2025-04-10 10:26 | Outpatient (BNVA) | payer MEDICARE, MEDICAID, SELFPAY | PROVIDERS: PCP Internal Medicine; Visit Provider Thoracic Surgery (Cardiothoracic Vascular Surgery) | DX: E11.52 Type 2 diabetes mellitus with diabetic peripheral angiopathy with gangrene (principal); E11.622 Type 2 diabetes mellitus with other skin ulcer; L97.811 Non-pressure chronic ulcer of other part of right lower leg limited to breakdown of skin; L97.821 Non-pressure chronic ulcer of other part of left lower leg limited to breakdown of skin | CPT/HCPCS: 97597; 97598; A6197 ==

== ENCOUNTER → 2025-04-17 14:33 | Outpatient (BNVA) | payer MEDICARE, MEDICAID, SELFPAY | PROVIDERS: PCP Internal Medicine; Visit Provider Thoracic Surgery (Cardiothoracic Vascular Surgery) | DX: E11.52 Type 2 diabetes mellitus with diabetic peripheral angiopathy with gangrene (principal); E11.622 Type 2 diabetes mellitus with other skin ulcer; L97.811 Non-pressure chronic ulcer of other part of right lower leg limited to breakdown of skin; T81.31XD Disruption of external operation (surgical) wound, not elsewhere classified, subsequent encounter; Y83.8 Other surgical procedures as the cause of abnormal reaction of the patient, or of later complication, without mention of misadventure at the time of the procedure | CPT/HCPCS: 97597; 97598; A6197 ==

== ENCOUNTER → 2025-04-24 14:17 | Outpatient (BNVA) | payer MEDICARE, MEDICAID, SELFPAY | PROVIDERS: PCP Internal Medicine; Visit Provider Thoracic Surgery (Cardiothoracic Vascular Surgery) | DX: E11.52 Type 2 diabetes mellitus with diabetic peripheral angiopathy with gangrene (principal); E11.622 Type 2 diabetes mellitus with other skin ulcer; L97.815 Non-pressure chronic ulcer of other part of right lower leg with muscle involvement without evidence of necrosis; L97.821 Non-pressure chronic ulcer of other part of left lower leg limited to breakdown of skin | CPT/HCPCS: 97597; 97598; A6197 ==

== ENCOUNTER → 2025-05-01 10:33 | Outpatient (BNVA) | payer MEDICARE, MEDICAID, SELFPAY | PROVIDERS: PCP Internal Medicine; Visit Provider Thoracic Surgery (Cardiothoracic Vascular Surgery) | DX: E11.52 Type 2 diabetes mellitus with diabetic peripheral angiopathy with gangrene (principal); E11.622 Type 2 diabetes mellitus with other skin ulcer; L97.821 Non-pressure chronic ulcer of other part of left lower leg limited to breakdown of skin; T81.31XD Disruption of external operation (surgical) wound, not elsewhere classified, subsequent encounter; Y83.8 Other surgical procedures as the cause of abnormal reaction of the patient, or of later complication, without mention of misadventure at the time of the procedure | CPT/HCPCS: 97597; 97598 ==

== ENCOUNTER → 2025-05-08 10:48 | Outpatient (BNVA) | payer MEDICARE, MEDICAID, SELFPAY | PROVIDERS: PCP Internal Medicine; Visit Provider Thoracic Surgery (Cardiothoracic Vascular Surgery) | DX: E11.52 Type 2 diabetes mellitus with diabetic peripheral angiopathy with gangrene (principal); E11.622 Type 2 diabetes mellitus with other skin ulcer; L97.821 Non-pressure chronic ulcer of other part of left lower leg limited to breakdown of skin; T81.31XD Disruption of external operation (surgical) wound, not elsewhere classified, subsequent encounter; Y83.8 Other surgical procedures as the cause of abnormal reaction of the patient, or of later complication, without mention of misadventure at the time of the procedure | CPT/HCPCS: 97597; 97598 ==

== ENCOUNTER → 2025-05-15 10:44 | Outpatient (BNVA) | payer MEDICARE, MEDICAID, SELFPAY | PROVIDERS: PCP Internal Medicine; Visit Provider Thoracic Surgery (Cardiothoracic Vascular Surgery) | DX: E11.52 Type 2 diabetes mellitus with diabetic peripheral angiopathy with gangrene (principal); E11.622 Type 2 diabetes mellitus with other skin ulcer; L97.823 Non-pressure chronic ulcer of other part of left lower leg with necrosis of muscle; T81.31XD Disruption of external operation (surgical) wound, not elsewhere classified, subsequent encounter; Y83.8 Other surgical procedures as the cause of abnormal reaction of the patient, or of later complication, without mention of misadventure at the time of the procedure ==

== ENCOUNTER → 2025-05-30 10:49 | Outpatient (BNVA) | payer MEDICARE, MEDICAID, SELFPAY | PROVIDERS: PCP Internal Medicine; Visit Provider Thoracic Surgery (Cardiothoracic Vascular Surgery) | DX: I96 Gangrene, not elsewhere classified (principal); T81.31XD Disruption of external operation (surgical) wound, not elsewhere classified, subsequent encounter; Y83.8 Other surgical procedures as the cause of abnormal reaction of the patient, or of later complication, without mention of misadventure at the time of the procedure | CPT/HCPCS: 97597; 97598 ==

== ENCOUNTER → 2025-06-07 11:05 | Outpatient (BNVA) | payer MEDICARE, MEDICAID, SELFPAY | PROVIDERS: PCP Internal Medicine; Visit Provider Thoracic Surgery (Cardiothoracic Vascular Surgery) | DX: I96 Gangrene, not elsewhere classified (principal); T81.31XD Disruption of external operation (surgical) wound, not elsewhere classified, subsequent encounter; Y83.8 Other surgical procedures as the cause of abnormal reaction of the patient, or of later complication, without mention of misadventure at the time of the procedure | CPT/HCPCS: 97597; 97598 ==

== ENCOUNTER → 2025-06-15 10:20 | Outpatient (BNVA) | payer MEDICARE, MEDICAID, SELFPAY | PROVIDERS: PCP Internal Medicine; Visit Provider Internal Medicine Cardiovascular Disease | DX: I25.10 Atherosclerotic heart disease of native coronary artery without angina pectoris (principal); I10 Essential (primary) hypertension; I25.5 Ischemic cardiomyopathy; E78.00 Pure hypercholesterolemia, unspecified; I73.9 Peripheral vascular disease, unspecified; S81.801S Unspecified open wound, right lower leg, sequela; Y99.9 Unspecified external cause status; Z98.61 Coronary angioplasty status; Z87.891 Personal history of nicotine dependence; R07.89 Other chest pain | CPT/HCPCS: 36415; 80048; 80162; 83880; 85025; 99214 ==

== ENCOUNTER → 2025-06-20 14:20 | Outpatient (BNVA) | payer MEDICARE, MEDICAID, SELFPAY | PROVIDERS: PCP Internal Medicine; Visit Provider Surgery | DX: S81.801A Unspecified open wound, right lower leg, initial encounter (principal); X58.XXXA Exposure to other specified factors, initial encounter | CPT/HCPCS: 99213 ==

== ENCOUNTER → 2025-06-21 11:08 | Outpatient (BNVA) | payer MEDICARE, MEDICAID, SELFPAY | PROVIDERS: PCP Internal Medicine; Visit Provider Thoracic Surgery (Cardiothoracic Vascular Surgery) | DX: E11.52 Type 2 diabetes mellitus with diabetic peripheral angiopathy with gangrene (principal); E11.622 Type 2 diabetes mellitus with other skin ulcer; L97.821 Non-pressure chronic ulcer of other part of left lower leg limited to breakdown of skin; T81.31XD Disruption of external operation (surgical) wound, not elsewhere classified, subsequent encounter; Y83.8 Other surgical procedures as the cause of abnormal reaction of the patient, or of later complication, without mention of misadventure at the time of the procedure | CPT/HCPCS: 97597; 97598; A6251 ==

== ENCOUNTER → 2025-06-28 10:44 | Outpatient (BNVA) | payer MEDICARE, MEDICAID, SELFPAY | PROVIDERS: PCP Internal Medicine; Visit Provider Thoracic Surgery (Cardiothoracic Vascular Surgery) | DX: E11.622 Type 2 diabetes mellitus with other skin ulcer (principal); L97.821 Non-pressure chronic ulcer of other part of left lower leg limited to breakdown of skin; I96 Gangrene, not elsewhere classified; T81.31XD Disruption of external operation (surgical) wound, not elsewhere classified, subsequent encounter; Y83.8 Other surgical procedures as the cause of abnormal reaction of the patient, or of later complication, without mention of misadventure at the time of the procedure | CPT/HCPCS: 97597; 97598 ==

== ENCOUNTER → 2025-07-05 10:49 | Outpatient (BNVA) | payer MEDICARE, MEDICAID, SELFPAY | PROVIDERS: PCP Internal Medicine; Visit Provider Thoracic Surgery (Cardiothoracic Vascular Surgery) | DX: E11.52 Type 2 diabetes mellitus with diabetic peripheral angiopathy with gangrene (principal); E11.622 Type 2 diabetes mellitus with other skin ulcer; L97.821 Non-pressure chronic ulcer of other part of left lower leg limited to breakdown of skin; T81.31XD Disruption of external operation (surgical) wound, not elsewhere classified, subsequent encounter; Y83.8 Other surgical procedures as the cause of abnormal reaction of the patient, or of later complication, without mention of misadventure at the time of the procedure | CPT/HCPCS: 97597; 97598 ==

== ENCOUNTER → 2025-07-12 11:10 | Outpatient (BNVA) | payer MEDICARE, MEDICAID, SELFPAY | PROVIDERS: PCP Internal Medicine; Visit Provider Thoracic Surgery (Cardiothoracic Vascular Surgery) | DX: E11.52 Type 2 diabetes mellitus with diabetic peripheral angiopathy with gangrene (principal); E11.622 Type 2 diabetes mellitus with other skin ulcer; L97.821 Non-pressure chronic ulcer of other part of left lower leg limited to breakdown of skin; T81.31XD Disruption of external operation (surgical) wound, not elsewhere classified, subsequent encounter; Y83.8 Other surgical procedures as the cause of abnormal reaction of the patient, or of later complication, without mention of misadventure at the time of the procedure | CPT/HCPCS: 97597; 97598 ==

== ENCOUNTER → 2025-07-19 10:45 | Outpatient (BNVA) | payer MEDICARE, MEDICAID, SELFPAY | PROVIDERS: PCP Internal Medicine; Visit Provider Thoracic Surgery (Cardiothoracic Vascular Surgery) | DX: E11.52 Type 2 diabetes mellitus with diabetic peripheral angiopathy with gangrene (principal); E11.622 Type 2 diabetes mellitus with other skin ulcer; L97.821 Non-pressure chronic ulcer of other part of left lower leg limited to breakdown of skin; T81.31XD Disruption of external operation (surgical) wound, not elsewhere classified, subsequent encounter; Y83.8 Other surgical procedures as the cause of abnormal reaction of the patient, or of later complication, without mention of misadventure at the time of the procedure | CPT/HCPCS: 97597; 97598 ==

== ENCOUNTER → 2025-07-21 08:24 | Outpatient (BNVA) | payer MEDICARE, MEDICAID, SELFPAY | PROVIDERS: PCP Internal Medicine; Visit Provider Dermatology | DX: L20.89 Other atopic dermatitis (principal); L85.3 Xerosis cutis | CPT/HCPCS: 99203 ==

== ENCOUNTER → 2025-07-26 10:33 | Outpatient (BNVA) | payer MEDICARE, MEDICAID, SELFPAY | PROVIDERS: PCP Internal Medicine; Visit Provider Thoracic Surgery (Cardiothoracic Vascular Surgery) | DX: E11.52 Type 2 diabetes mellitus with diabetic peripheral angiopathy with gangrene (principal); E11.622 Type 2 diabetes mellitus with other skin ulcer; L97.821 Non-pressure chronic ulcer of other part of left lower leg limited to breakdown of skin; T81.31XD Disruption of external operation (surgical) wound, not elsewhere classified, subsequent encounter; Y83.8 Other surgical procedures as the cause of abnormal reaction of the patient, or of later complication, without mention of misadventure at the time of the procedure | CPT/HCPCS: 97597; 97598 ==

== ENCOUNTER → 2025-08-02 10:48 | Outpatient (BNVA) | payer MEDICARE, MEDICAID, SELFPAY | PROVIDERS: PCP Internal Medicine; Visit Provider Thoracic Surgery (Cardiothoracic Vascular Surgery) | DX: I96 Gangrene, not elsewhere classified (principal); T81.31XD Disruption of external operation (surgical) wound, not elsewhere classified, subsequent encounter; Y83.8 Other surgical procedures as the cause of abnormal reaction of the patient, or of later complication, without mention of misadventure at the time of the procedure; Z09 Encounter for follow-up examination after completed treatment for conditions other than malignant neoplasm | CPT/HCPCS: 97597; 97598 ==

== ENCOUNTER → 2025-08-03 10:13 | Outpatient (BNVA) | payer MEDICARE, MEDICAID, SELFPAY | PROVIDERS: PCP Internal Medicine; Visit Provider Podiatrist Foot & Ankle Surgery | DX: E11.40 Type 2 diabetes mellitus with diabetic neuropathy, unspecified (principal); B35.1 Tinea unguium; L84 Corns and callosities; I73.9 Peripheral vascular disease, unspecified; G62.9 Polyneuropathy, unspecified; Z79.4 Long term (current) use of insulin | CPT/HCPCS: 11721 ==

== ENCOUNTER → 2025-08-04 10:09 | Outpatient (BNVA) | payer MEDICARE, MEDICAID, SELFPAY | PROVIDERS: PCP Internal Medicine; Visit Provider Dermatology | DX: L20.89 Other atopic dermatitis (principal); L85.3 Xerosis cutis | CPT/HCPCS: 99213 ==

== ENCOUNTER → 2025-08-09 10:45 | Outpatient (BNVA) | payer MEDICARE, MEDICAID, SELFPAY | PROVIDERS: PCP Internal Medicine; Visit Provider Thoracic Surgery (Cardiothoracic Vascular Surgery) | DX: I96 Gangrene, not elsewhere classified (principal); T81.31XD Disruption of external operation (surgical) wound, not elsewhere classified, subsequent encounter; Y83.8 Other surgical procedures as the cause of abnormal reaction of the patient, or of later complication, without mention of misadventure at the time of the procedure | CPT/HCPCS: 97597; 97598 ==

== ENCOUNTER → 2025-08-16 10:57 | Outpatient (BNVA) | payer MEDICARE, MEDICAID, SELFPAY | PROVIDERS: PCP Internal Medicine; Visit Provider Thoracic Surgery (Cardiothoracic Vascular Surgery) | DX: I96 Gangrene, not elsewhere classified (principal); T81.31XD Disruption of external operation (surgical) wound, not elsewhere classified, subsequent encounter; Y83.8 Other surgical procedures as the cause of abnormal reaction of the patient, or of later complication, without mention of misadventure at the time of the procedure; L97.221 Non-pressure chronic ulcer of left calf limited to breakdown of skin | CPT/HCPCS: 97597; 97598; A6212 ==

== ENCOUNTER → 2025-09-06 09:54 | Outpatient (BNVA) | payer MEDICARE, MEDICAID, SELFPAY | PROVIDERS: PCP Internal Medicine; Visit Provider Thoracic Surgery (Cardiothoracic Vascular Surgery) | DX: I96 Gangrene, not elsewhere classified (principal); T81.31XD Disruption of external operation (surgical) wound, not elsewhere classified, subsequent encounter; Y83.8 Other surgical procedures as the cause of abnormal reaction of the patient, or of later complication, without mention of misadventure at the time of the procedure | CPT/HCPCS: 99212; A6252 ==

== ENCOUNTER → 2025-09-15 10:43 | Outpatient (BNVA) | payer MEDICARE, MEDICAID, SELFPAY | PROVIDERS: PCP Internal Medicine; Visit Provider Dermatology | DX: L20.89 Other atopic dermatitis (principal) | CPT/HCPCS: 99213 ==

== ENCOUNTER → 2025-09-20 09:45 | Outpatient (BNVA) | payer MEDICARE, MEDICAID, SELFPAY | PROVIDERS: PCP Internal Medicine; Visit Provider Thoracic Surgery (Cardiothoracic Vascular Surgery) | DX: I96 Gangrene, not elsewhere classified (principal); T81.31XD Disruption of external operation (surgical) wound, not elsewhere classified, subsequent encounter; Y83.8 Other surgical procedures as the cause of abnormal reaction of the patient, or of later complication, without mention of misadventure at the time of the procedure; Z09 Encounter for follow-up examination after completed treatment for conditions other than malignant neoplasm | CPT/HCPCS: 97597 ==